=== PATIENT | male | born 1930 | race Caucasian/White ===

== ENCOUNTER 2017-08-20 16:43 | Inpatient (IN) | payer OTHER, MEDICARE ==
--- NOTE | 2017-08-20 18:42 | ER Document Report ---
ED Medical Screen (RME) - General Chief Complaint: Swelling of Lower Extremity Stated Complaint: RECTAL BLEEDING Time Seen by Provider: 08/20/17 18:41 Notes: pt reports generalized weakness, recent dc from rehab and lives alone. states cant do ADL's due to weakness - Related Data Allergies/Adverse Reactions: No Known Allergies Allergy (Unverified 08/20/17 17:35) Past Medical History - Social History Chew tobacco use (# tins/day): No Frequency of alcohol use: None Renal/ Medical History: Denies: Hx Peritoneal Dialysis Physical Exam - Vital signs Vitals: Temp Pulse Resp BP Pulse Ox 97.8 F 85 20 167/73 H 95 08/20/17 17:40 08/20/17 17:40 08/20/17 17:40 08/20/17 17:40 08/20/17 17:40 Course - Vital Signs Vital signs: Temp Pulse Resp BP Pulse Ox 97.8 F 85 20 167/73 H 95 08/20/17 17:40 08/20/17 17:40 08/20/17 17:40 08/20/17 17:40 08/20/17 17:40
[2017-08-20 21:35] LABS: HEMATOCRIT 37.5 % (37.9-51.0); HEMOGLOBIN 12.2 g/dL (13.5-17.0); MEAN CORPUSCULAR HEMOGLOBIN 29.8 pg (27.0-33.4); MEAN CORPUSCULAR HGB CONC 32.7 g/dL (32.0-36.0); MEAN CORPUSCULAR VOLUME 91 fl (80-97); PLATELET COUNT 400 10^3/uL (150-450); RED BLOOD COUNT 4.11 10^6/uL (4.35-5.55); WHITE BLOOD COUNT 20.5 10^3/uL (4.0-10.5)
[2017-08-20 21:53] LABS: ABSOLUTE LYMPHOCYTES# (MANUAL) 1.2 10^3/uL (0.5-4.7); ABSOLUTE MONOCYTES # (MANUAL) 1.8 10^3/uL (0.1-1.4); ABSOLUTE NEUTROPHILS# (MANUAL) 17.4 10^3/uL (1.7-8.2); ALANINE AMINOTRANSFERASE 53 U/L (21-72); ALBUMIN 3.5 g/dL (3.5-5.0); ALKALINE PHOSPHATASE 104 U/L (38-126); ANION GAP 16 (5-19); ASPARTATE AMINO TRANSFERASE 50 U/L (17-59); BASOPHILS % (MANUAL) 0 % (0-2); BILIRUBIN,DIRECT 0.5 mg/dL (0.0-0.4); BILIRUBIN,TOTAL 0.7 mg/dL (0.2-1.3); CALCIUM 9.6 mg/dL (8.4-10.2); CARBON DIOXIDE 22 mmol/L (22-30); CHLORIDE 106 mmol/L (98-107); EOSINOPHILS % (MANUAL) 0 % (0-6); GLUCOSE 88 mg/dL (75-110); LYMPHOCYTES % (MANUAL) 5 % (13-45); MONOCYTES % (MANUAL) 9 % (3-13); SEGMENTED NEUTROPHILS % (MAN) 85 % (42-78); SODIUM 143.9 mmol/L (137-145); TOTAL CELLS COUNTED 100; TOTAL PROTEIN 7.1 g/dL (6.3-8.2)
[2017-08-20 21:55] LABS: HYPOCHROMASIA SLIGHT; PLATELET COMMENT ADEQUATE
[2017-08-20 22:07] LABS: BLOOD UREA NITROGEN 125 mg/dL (7-20)
[2017-08-20 22:10] LABS: POTASSIUM 6.2 mmol/L (3.6-5.0)
--- NOTE | 2017-08-20 23:00 | ER Document Report ---
ED General - General Chief Complaint: Swelling of Lower Extremity Stated Complaint: RECTAL BLEEDING Time Seen by Provider: 08/20/17 18:41 Notes: Patient is an 79-year-old male who says that he was recently discharged from the facility in [place]. He sustained the hospital for well and then was placed in facility. Said he went home and has been unable to get out of bed or do anything. He says he is too weak. He says he has felt unwell has not ate or drink anything. He denies any recent fevers or infections. On exam he does have some excoriation to the testicle and sacral region. Patient says he has had this before but is unsure if it is worsening in comparison to what it was. He denies any pain. He has no other complaints at this time. He denies previous history of kidney failure. - Related Data Allergies/Adverse Reactions: No Known Allergies Allergy (Unverified 08/20/17 17:35) Past Medical History - Social History Smoking Status: Former Smoker Chew tobacco use (# tins/day): No Frequency of alcohol use: None Drug Abuse: None Family History: Reviewed & Not Pertinent Patient has suicidal ideation: No Patient has homicidal ideation: No Renal/ Medical History: Denies: Hx Peritoneal Dialysis Review of Systems - Review of Systems Notes: My Normal Review Basic REVIEW OF SYSTEMS: CONSTITUTIONAL : [place] very weak.. RESPIRATORY: Denies cough, cold, or chest congestion. Denies shortness of breath, difficulty breathing, or wheezing. GASTROINTESTINAL: Denies abdominal pain. Denies nausea, vomiting, or diarrhea. Denies constipation. Last BM: GENITOURINARY: Denies difficulty urinating, painful urination, burning, frequency, or blood in urine. MUSCULOSKELETAL: Denies neck or back pain or joint pain or swelling. SKIN: Denies rash or skin lesions. NEUROLOGICAL: Denies altered mental status or loss of consciousness. Denies headache. Denies weakness or paralysis or loss of use of either side. Denies problems with gait or speech. Denies sensory or motor loss. ALL OTHER SYSTEMS REVIEWED AND NEGATIVE. Physical Exam - Vital signs Vitals: Temp Pulse Resp BP Pulse Ox 97.8 F 85 20 167/73 H 95 08/20/17 17:40 08/20/17 17:40 08/20/17 17:40 08/20/17 17:40 08/20/17 17:40 - Notes Notes: General Appearance: Well nourished, alert, cooperative, no acute distress, no obvious discomfort. Vitals: reviewed, See vital signs table. Head: no swelling or tenderness to the head Eyes: PERRL, EOMI, Conjuctiva clear Mouth: Dry mucous membranes. Throat: No tonsillar inflammation, No airway obstruction, No lymphadenopathy Neck: Supple, no neck tenderness, No thyromegaly Lungs: No wheezing, No rales, No rhonci, No accessory muscle use, good air exchange bilaterally. Heart: Normal rate, Regular rythm, No murmur, no rub Abdomen: Normal BS, soft, No rigidity, No abdominal tenderness, No guarding, no rebound, Rectal: Patient has large amount excoriation to the skin over the entire gluteal and sacral region. Even has some blackening of the skin consistent with necrosis of the skin. Patient has some excoriations going up into the perineum and then onto the scrotal area. Genital: Patient has excoriations going up into the scrotal region with some redness. No surrounding crepitance. No abscess seen. Extremities: strength 5/5 in all extremities, good pulses in all extremities, no swelling or tenderness in the extremities, no edema. Skin: warm, dry, appropriate color, no rash Neuro: speech clear, oriented x 3, normal affect, responds appropriately to questions. Course - Re-evaluation Re-evalutation: 08/20/17 23:40 Patient is a large amount skin breakdown of the sacral area extends into the scrotal area. Patient says the area is not painful. I have ordered a CT scan over the sacral area. I have ordered antibiotics. Patient is acute renal failure. I have ordered some fluids. He also has a leukocytosis. Patient is not diabetic. 08/21/17 01:44 Patient clinically continues to be awake alert denies any pain. Therefore think necrotizing fasciitis is highly unlikely especially with a negative CT scan. I did still call and speak with the surgeon, Dr. Arzate, and discussed with him my concerns that this patient most likely will need debridement due to the amount of skin breakdown and probable secondary superinfection. He is agreeable to seeing the patient. He requests patient be admitted to medicine and will see the patient first in the morning. 08/21/17 02:10 Spoke with the hospitalist, Dr. Goldman, who agrees to come evaluate the patient for admission. Dictation of this chart was performed using voice recognition software; therefore, there may be some unintended grammatical errors. - Vital Signs Vital signs: Temp Pulse Resp BP Pulse Ox 97.8 F 85 20 167/73 H 95 08/20/17 17:40 08/20/17 17:40 08/20/17 17:40 08/20/17 17:40 08/20/17 17:40 - Laboratory Result Diagrams: 08/20/17 21:05 08/21/17 03:45 Laboratory results interpreted by me: 08/20/17 08/20/17 08/21/17 21:05 21:05 00:44 WBC 20.5 H RBC 4.11 L Hgb 12.2 L Hct 37.5 L Seg Neuts % (Manual) 85 H Lymphocytes % (Manual) 5 L Abs Neuts (Manual) 17.4 H Abs Monocytes (Manual) 1.8 H PT 15.6 H Potassium 6.2 H* BUN 125 H Creatinine 7.06 H Est GFR ( Amer) 9 L Est GFR (Non-Af Amer) 7 L Direct Bilirubin 0.5 H Urine Protein Urine Blood Ur Leukocyte Esterase 08/21/17 02:05 WBC RBC Hgb Hct Seg Neuts % (Manual) Lymphocytes % (Manual) Abs Neuts (Manual) Abs Monocytes (Manual) PT Potassium BUN Creatinine Est GFR ( Amer) Est GFR (Non-Af Amer) Direct Bilirubin Urine Protein 30 H Urine Blood MODERATE H Ur Leukocyte Esterase LARGE H - EKG Interpretation by Me Additional EKG results interpreted by me: 08/20/17 23:00 EKG is reviewed and interpreted by me. EKG shows sinus rhythm with rate of [address] segment elevation or depression. No ischemic T-wave inversions. CA interval, QRS duration, QTc intervals are within normal range. No old EKG available for comparison. Discharge - Discharge Clinical Impression: Hyperkalemia Sacral decubitus ulcer Qualifiers: Pressure ulcer stage: unspecified pressure ulcer stage Qualified Code(s): L89.159 - Pressure ulcer of sacral region, unspecified stage Acute renal failure Qualifiers: Acute renal failure type: unspecified Qualified Code(s): N17.9 - Acute kidney failure, unspecified UTI (urinary tract infection) Qualifiers: Urinary tract infection type: site unspecified Hematuria presence: with hematuria Qualified Code(s): N39.0 - Urinary tract infection, site not specified Condition: Stable Disposition: ADMITTED INPATIENT Admitting Provider: Hospitalist Unit Admitted: Telemetry
[2017-08-20] MEDS ORDERED: PIPERACILLIN/TAZOBACTAM 3.375 GM VIAL IV ONE (23:07)
[2017-08-20] MEDS ORDERED: RINGERS SOLUTION,LACTATED 1,000 ML IV ONE (23:08)
[2017-08-20] MEDS ORDERED: DEXTROSE 5%-WATER 1000 ML 1,000 ML with SODIUM BICARBONATE 150 MEQ IV PRN ×2 (23:09)
[2017-08-20] MEDS ORDERED: VANCOMYCIN HCL INJ 1000 MG VIAL IV ONE (23:37)
--- NOTE | 2017-08-21 00:08 | RADIOLOGY REPORT (SQ) ---
EXAM DESCRIPTION: CHEST SINGLE VIEW CLINICAL HISTORY: 87 years, Male, leukocytosis, weakness COMPARISON: None. NUMBER OF VIEWS: 1 LIMITATIONS: None. FINDINGS: Adequate lung volume, prominent interstitium, normal cardiac silhouette, atherosclerosis, dextroconvexity, and mild disc desiccation. IMPRESSION: No acute cardiopulmonary findings.
--- NOTE | 2017-08-21 00:57 | RADIOLOGY REPORT (SQ) ---
EXAM DESCRIPTION: CT ABD/PELVIS NO ORAL OR IV CLINICAL HISTORY: 87 years Male, severe skin break down over sacral region. COMPARISON: CR, chest, same day. TECHNIQUE: No contrast. Coronal and sagittal reformat. This exam was performed according to our departmental dose-optimization program, which includes automated exposure control, adjustment of the mA and/or kV according to patient size and/or use of iterative reconstruction technique. FINDINGS: Moderate dilation of the renal collecting system bilaterally. No radiopaque stone. Mild/moderate dilation of the urinary bladder. Mild bilateral perinephric fat stranding. No ascites. 0.8 cm calcified granuloma within left lower lobe. Small atelectasis or scar of the left lower lobe. Small right inguinal fat only hernia. Old granulomatous disease of the spleen. Mild nonspecific macro nodularity of liver surface may indicate cirrhosis. Mild/moderate disc desiccation. Unenhanced inferior chest, intra-abdominal/intrapelvic structures, and musculoskeleton appear otherwise grossly intact. IMPRESSION: Moderate dilation of the renal collecting system. Differential diagnosis includes bladder outlet obstruction/dysfunction.
[2017-08-21 01:04] LABS: INTERNATIONAL RATION (INR) 1.16; PROTHROMBIN TIME 15.6 SEC (11.4-15.4)
[2017-08-21 01:05] LABS: PARTIAL THROMBOPLASTIN TIME 31.7 SEC (23.5-35.8)
[2017-08-21] MEDS ORDERED: DEXTROSE 50%-WATER 25 GM/50 ML DISP.SYRIN IV ONE (02:15)
[2017-08-21] MEDS ORDERED: INSULIN REG, HUMAN 100 UNIT/ML 3 ML VIAL (PYX) IV ONE (02:16)
[2017-08-21 02:49] LABS: APPEARANCE,URINE CLOUDY; BILIRUBIN,URINE NEGATIVE (NEGATIVE); COLOR,URINE YELLOW; GLUCOSE, URINE NEGATIVE (NEGATIVE); KETONES,URINE NEGATIVE (NEGATIVE); LEUKOCYTE ESTERASE,URINE LARGE (NEGATIVE); NITRITE,URINE NEGATIVE (NEGATIVE); PROTEIN,URINE 30 mg/dL (NEGATIVE); URINE SPECIFIC GRAVITY 1.006; UROBILINOGEN,URINE NEGATIVE mg/dL (<2.0)
[2017-08-21 04:05] LABS: ANION GAP 17 (5-19); CALCIUM 8.9 mg/dL (8.4-10.2); CARBON DIOXIDE 19 mmol/L (22-30); CHLORIDE 110 mmol/L (98-107); GLUCOSE 132 mg/dL (75-110); POTASSIUM 5.3 mmol/L (3.6-5.0); SODIUM 145.6 mmol/L (137-145)
[2017-08-21] MEDS ORDERED: DEXTROSE 50%-WATER 25 GM/50 ML DISP.SYRIN IV PRN ×2 (04:25)
[2017-08-21] MEDS ORDERED: NORMAL SALINE 1000 ML 1,000 ML IV PRN (04:25)
[2017-08-21] MEDS ORDERED: ONDANSETRON HCL INJ/PF 4 MG/2 ML SDV IV PRN (04:25)
[2017-08-21] MEDS ORDERED: ACETAMINOPHEN 325 MG TABLET PO PRN (04:25)
[2017-08-21] MEDS ORDERED: GLUCAGON,HUMAN RECOMB 1 MG INJ SUBCUT PRN (04:25)
[2017-08-21] MEDS ORDERED: ALBUTEROL SULFATE 0.083% NEB 2.5 MG/3 ML AMPUL NEB PRN (04:25)
[2017-08-21] MEDS ORDERED: DEXTROSE 40% GEL 15 GM TUBE PO PRN ×2 (04:25)
[2017-08-21 04:31] LABS: BLOOD UREA NITROGEN 137 mg/dL (7-20)
[2017-08-21] MEDS ORDERED: CALCIUM GLUCONATE 1000 MG/10 ML INJ IV ONE (04:36)
[2017-08-21] MEDS ORDERED: 1/2 NORMAL SALINE 1,000 ML IV PRN ×2 (05:02→15:27)
[2017-08-21 05:29] LABS: FREE T4 (FREE THYROXINE) 1.53 ng/dL (0.78-2.19)
[2017-08-21 05:43] LABS: THYROID STIMULATING HORMONE 1.23 uIU/mL (0.47-4.68)
[2017-08-21 06:19] LABS: FOLATE 12.4 ng/mL (>2.76)
--- NOTE | 2017-08-21 07:30 | PDOC H&P ---
History of Present Illness Admission Date/PCP: 08/21/17 02:24 Patient complains of: Weakness History of Present Illness: NORMA PUENTE is a 87 year old male who states he has no medical history however upon reviewing his medications appears to have hypertension, hyperlipidemia, BPH, anxiety and pain. Patient states he went to [facility] be evaluated for weakness and was transferred to [facility] for further evaluation. Patient was there for 2 months. Patient states that after he was evaluated in the hospital he was sent for rehab but states that he spent most of his time in a wheelchair. Patient states that he was living independently. Patient denies using a walker or cane previously. Patient was discharged home. He stated while home he was unable to care for himself. Patient has not eaten or taken any medications medications for 4 days. Patient states he has not really urinated because he was not drinking anything order to urinate. Reports that his feet often times jerked towards him without him even knowing. In the ED patient was found to have leukocytosis of 20,000, hemoglobin 12.2 patient potassium was 6.2 BUN was 125 and his creatinine was 7.06. CT scan of the abdomen showed moderate dilatation of the renal collecting system bilaterally. In the ED was also noted that his scrotal and groin and decubitus area were ulcerated and appeared infected. Hospitalist was called to admit patient for acute renal failure due to obstructive uropathy, hyperkalemia, and decubitus ulcer infection. Past Medical History Cardiac Medical History: Reports: Hyperlipidema, Hypertension Denies: None, Atrial Fibrillation, Congestive Heart Failure, Coronary Artery Disease, DVT, Myocardial Infarction, Peripheral Vascular Disease, Pulmonary Embolism, Heart Murmur, Other Endocrine Medical History: Denies: None, Diabetes Mellitus Type 1, Diabetes Mellitus Type 2, Gestational Diabetes, Hyperthyroidism, Hypothyroidism, Obesity, Other Renal/ Medical History: Reports: Other - BPH Malignancy Medical History: Denies: None, Bone Cancer, Brain Cancer, Breast Cancer, Cervical Cancer, Colorectal Cancer, Leukemia, Liver Cancer, Lung Cancer, Lymphoma, Ovarian Cancer , Pancreatic Cancer, Renal (Kidney) Cancer, Skin Cancer, Other GI Medical History: Denies: None, Cirrhosis, Crohn's Disease, Diverticulitis, Gastroesophageal Reflux Disease, Hepatitis, Hiatal Hernia, Peptic Ulcer Disease, Ulcerative Colitis, Other Musculoskeltal Medical History: Reports: Arthritis Skin Medical History: Denies: None, Eczema, Psoriasis, Other Psychiatric Medical History: Denies: None, Alcohol Dependency, Attention Deficit Hyperactivity Disorder, Bipolar Disorder, Dementia, Depression, General Anxiety Disorder, Personality Disorder, Post Traumatic Stress Disorder, Schizoaffective Disorder, Substance Abuse, Tobacco Dependency, Other Hematology: Reports: Anemia Infectious Medical History: Denies: None, Clostridium Difficile, Hepatitis B, Hepatitis C, HIV, Methicillin-Resistant Staph Aureus, Vancomycin-Resistant Enterococci, Other Past Surgical History Past Surgical History: Reports: Appendectomy Social History Information Source: Patient Smoking Status: Former Smoker - Advance Directive Resuscitation Status: Full Code Family History Family History: denies: None, Reviewed & Not Pertinent, Arthritis, CAD, COPD, CVA, DM, Hyperlipidemia, Hypertension, Malignancy, Thyroid Disfunction, Other Parental Family History Reviewed: No Children Family History Reviewed: No Sibling(s) Family History Reviewed.: No Medication/Allergy Allergies/Adverse Reactions: No Known Allergies Allergy (Unverified 08/20/17 17:35) Review of Systems Constitutional: ABSENT: chills, fever(s), headache(s), weight gain, weight loss Eyes: ABSENT: visual disturbances Ears: ABSENT: hearing changes Cardiovascular: ABSENT: chest pain, dyspnea on exertion, edema, orthropnea, palpitations Respiratory: ABSENT: cough, hemoptysis Gastrointestinal: ABSENT: abdominal pain, constipation, diarrhea, hematemesis, hematochezia, nausea, vomiting Genitourinary: ABSENT: dysuria, hematuria Musculoskeletal: ABSENT: joint swelling Integumentary: ABSENT: rash, wounds Neurological: PRESENT: weakness. ABSENT: abnormal gait, abnormal speech, confusion, dizziness, focal weakness, syncope Psychiatric: ABSENT: anxiety, depression, homidical ideation, suicidal ideation Endocrine: ABSENT: cold intolerance, heat intolerance, polydipsia, polyuria Hematologic/Lymphatic: ABSENT: easy bleeding, easy bruising Physical Exam Vital Signs: Temp Pulse Resp BP Pulse Ox 97.8 F 85 20 167/73 H 95 08/20/17 17:40 08/20/17 17:40 08/20/17 17:40 08/20/17 17:40 08/20/17 17:40 General appearance: PRESENT: no acute distress, disheveled, well-nourished Head exam: PRESENT: normocephalic Eye exam: PRESENT: conjunctiva pink, EOMI, PERRLA. ABSENT: scleral icterus Ear exam: PRESENT: normal external ear exam Mouth exam: PRESENT: moist, tongue midline Neck exam: ABSENT: carotid bruit, JVD, lymphadenopathy, thyromegaly Respiratory exam: PRESENT: clear to auscultation arash. ABSENT: rales, rhonchi, wheezes Cardiovascular exam: PRESENT: RRR. ABSENT: diastolic murmur, rubs, systolic murmur Pulses: PRESENT: normal dorsalis pedis pul Vascular exam: PRESENT: normal capillary refill GI/Abdominal exam: PRESENT: normal bowel sounds, soft. ABSENT: distended, guarding, mass, organolmegaly, rebound, tenderness Rectal exam: PRESENT: deferred Gentrourinary exam: PRESENT: indwelling catheter Extremities exam: PRESENT: full ROM. ABSENT: calf tenderness, clubbing, pedal edema Neurological exam: PRESENT: alert, awake, oriented to person, oriented to place , oriented to time, oriented to situation, CN II-XII grossly intact. ABSENT: motor sensory deficit Psychiatric exam: PRESENT: appropriate affect, normal mood. ABSENT: homicidal ideation, suicidal ideation Skin exam: PRESENT: dry, intact, warm. ABSENT: cyanosis, rash Results Laboratory Results: 08/21/17 03:45 08/21/17 08/21/17 08/21/17 03:45 03:45 03:45 Sodium 145.6 H Potassium 5.3 H Chloride 110 H Carbon Dioxide 19 L Anion Gap 17 BUN 137 H Creatinine 6.73 H Est GFR ( Amer) 9 L Est GFR (Non-Af Amer) 8 L Glucose 132 H Calcium 8.9 Magnesium 2.3 Vitamin B12 297.0 Folate 12.40 TSH 1.23 Free T4 1.53 Impressions: Chest X-Ray 08/20/17 23:09 IMPRESSION: No acute cardiopulmonary findings. Abdomen/Pelvis CT 08/20/17 23:35 IMPRESSION: Moderate dilation of the renal collecting system. Differential diagnosis includes bladder outlet obstruction/dysfunction. Assessment & Plan - Diagnosis (1) Acute renal failure Qualifiers: Acute renal failure type: unspecified Qualified Code(s): N17.9 - Acute kidney failure, unspecified Is this a current diagnosis for this admission?: Yes Plan: Secondary to obstructive uropathy Clement placed and dehydration. Repeat labs show creatinine trending down. Continue IV fluids. Clement catheter in place. Monitor ins and outs. Avoid nephrotoxins. Renal ultrasound ordered. Will consult nephrology. (2) Obstructive uropathy Is this a current diagnosis for this admission?: Yes Plan: CT scan of the abdomen shows moderate dilatation of the renal collecting system. Patient had a Clement placed. Require repeat imaging to see if it has corrected. (3) Hyperkalemia Is this a current diagnosis for this admission?: Yes Plan: Secondary to acute renal failure. Will give calcium gluconate. Patient given insulin and dextrose. Will also given neb treatment. Will repeat BMP. (4) Sacral decubitus ulcer Qualifiers: Pressure ulcer stage: unspecified pressure ulcer stage Qualified Code(s): L89.159 - Pressure ulcer of sacral region, unspecified stage Is this a current diagnosis for this admission?: Yes Plan: Patient given vancomycin and Zosyn. Will start patient on clindamycin. Surgery was consulted for evaluation of this decubitus ulcer for possible debridement. (5) Weakness Is this a current diagnosis for this admission?: Yes Plan: Patient states he was at [facility] for 2 months for this very reason. Patient even reports clonus. Will order a CT of the head and neck. Will request patient's documents from [place]. Will check B12, TSH, folate , vitamin D, CRP, sed rate, CPK. He will keep in mind that patient's weakness could be due to infected decubitus ulcer. Will consult PT and OT (6) UTI (urinary tract infection) Qualifiers: Urinary tract infection type: site unspecified Hematuria presence: with hematuria Qualified Code(s): N39.0 - Urinary tract infection, site not specified; R31.9 - Hematuria, unspecified; R31.9 - Hematuria, unspecified Plan: Patient currently on ceftriaxone. - Time Time Spent: 30 to 50 Minutes Anticipated discharge: SNF - Inpatient Certification Medical Necessity: Need For IV Fluids - Currently in acute renal failure and requires close monitoring. She may require possible surgery.
[2017-08-21] MEDS: CLINDAMYCIN 900 MG/D5W RTU 50 ML IV SCH ×3 (07:50→22:50)
--- NOTE | 2017-08-21 08:14 | RADIOLOGY REPORT (SQ) ---
EXAM DESCRIPTION: CT CERVICAL SPINE WITHOUT COMPLETED DATE/TIME: 08/21/2017 7:56 am REASON FOR STUDY: unable to walk or use hands COMPARISON: None. TECHNIQUE: Axial images acquired through the cervical spine without intravenous contrast. Images re viewed with lung, soft tissue and bone windows. Reconstructed coronal and sagittal MPR images review ed. Images stored on PACS. All CT scanners at this facility use dose modulation, iterative reconstruction, and/or weight based d osing when appropriate to reduce radiation dose to as low as reasonably achievable (ALARA). [facility]: Dose Right [facility]: CareDose [facility]: Dose Right [facility]: Teradose 4D [facility]: Smart [employer] RADIATION DOSE: CT Rad equipment meets quality standard of care and radiation dose reduction techniq ues were employed. CTDIvol: 26.0 mGy. DLP: 546 mGy-cm. mGy. LIMITATIONS: None. FINDINGS: ALIGNMENT: Anatomic. MINERALIZATION: Normal. VERTEBRAL BODIES: No fractures or dislocation. DISCS: Multilevel disc space narrowing with osteophytes. FACETS, LATERAL MASSES, POSTERIOR ELEMENTS: Facet arthropathy. No fractures. No dislocation. No ac sandhya findings. HARDWARE: None in the spine. VISUALIZED RIBS: No fractures. LUNG APICES AND SOFT TISSUES: No significant or acute findings. OTHER: No other significant finding. IMPRESSION: CHRONIC DEGENERATIVE CHANGES. NO ACUTE FINDINGS. TECHNICAL DOCUMENTATION: JOB ID: [id number] Quality ID # [id number]: Final reports with documentation of one or more dose reduction techniques (e.g., Au tomated exposure control, adjustment of the mA and/or kV according to patient size, use of iterative reconstruction technique) 2010 [employer] All Rights Reserved
--- NOTE | 2017-08-21 08:16 | RADIOLOGY REPORT (SQ) ---
EXAM DESCRIPTION: CT HEAD WITHOUT COMPLETED DATE/TIME: 08/21/2017 7:56 am REASON FOR STUDY: unable to walk or use hands COMPARISON: None. TECHNIQUE: Axial images acquired through the brain without intravenous contrast. Images reviewed wi th bone, brain and subdural windows. Images stored on PACS. All CT scanners at this facility use dose modulation, iterative reconstruction, and/or weight based d osing when appropriate to reduce radiation dose to as low as reasonably achievable (ALARA). [facility]: Dose Right [facility]: CareDose [facility]: Dose Right [facility]: Teradose 4D [facility]: Smart [employer] RADIATION DOSE: CT Rad equipment meets quality standard of care and radiation dose reduction techniq ues were employed. CTDIvol: 64.3 mGy. DLP: 1163 mGy-cm. mGy. LIMITATIONS: None. FINDINGS: VENTRICLES: Prominent. CEREBRUM: No masses. No hemorrhage. No midline shift. Areas of low density in the white matter mos t likely due to chronic micro-vascular ischemic change. No evidence for acute infarction. CEREBELLUM: No masses. No hemorrhage. No alteration of density. No evidence for acute infarction. EXTRAAXIAL SPACES: Mild age-related involutional change. No fluid collections. No masses. ORBITS AND GLOBE: No intra- or extraconal masses. Normal contour of globe without masses. CALVARIUM: No fracture. PARANASAL SINUSES: No fluid or mucosal thickening. SOFT TISSUES: No mass or hematoma. OTHER: No other significant finding. IMPRESSION: MILD CHRONIC CHANGES OF ATROPHY AND MICROVASCULAR ISCHEMIA. NO ACUTE PROCESS. EVIDENCE OF ACUTE STROKE: NO. TECHNICAL DOCUMENTATION: JOB ID: [id number] Quality ID # [id number]: Final reports with documentation of one or more dose reduction techniques (e.g., Au tomated exposure control, adjustment of the mA and/or kV according to patient size, use of iterative reconstruction technique) 2010 [email or web address]- All Rights Reserved
[2017-08-21] MEDS: ASCORBIC ACID 500 MG TABLET PO SCH (09:12)
[2017-08-21] MEDS: LACTOBACILLUS ACIDOPHILUS 250 MG TAB PO SCH ×2 (09:13→19:54)
[2017-08-21] MEDS: CYANOCOBALAMIN (VITAMIN B-12) INJ 1000 MCG/1 ML VIAL IM SCH (09:14)
--- NOTE | 2017-08-21 09:26 | EKG REPORT ---
SEVERITY:- ABNORMAL ECG - SINUS RHYTHM ABNRM R PROG, CONSIDER ASMI OR LEAD PLACEMENT : Confirmed by: Maki Olivier 21-Aug-2017 09:26:26
[2017-08-21] MEDS: DOCUSATE SODIUM 100 MG/10 ML UDC PO SCH ×2 (09:30→19:54)
[2017-08-21] MEDS ORDERED: CEFTRIAXONE 1 GM/D5W RTU 1 GM/50 ML RTUPB IV SCH (10:00)
--- NOTE | 2017-08-21 10:11 | RADIOLOGY REPORT (SQ) ---
EXAM DESCRIPTION: U/S RETROPERITON (RENAL/AORTA) COMPLETED DATE/TIME: 08/21/2017 9:19 am REASON FOR STUDY: renal failure COMPARISON: CT dated 08/21/2017. TECHNIQUE: Dynamic and static grayscale images acquired of the kidneys and bladder and recorded on P ACS. Additional selected color Doppler and spectral images recorded. LIMITATIONS: None. FINDINGS: RIGHT KIDNEY: Normal size. Normal echogenicity. No solid or suspicious masses. Minimal ca lyceal prominence. No hydronephrosis. No calcifications. LEFT KIDNEY: Normal size. Normal echogenicity. No solid or suspicious masses. No hydronephrosis. No calcifications. BLADDER: Nondistended. Catheter in place. OTHER FINDINGS: No other significant finding. IMPRESSION: UNREMARKABLE RENAL AND BLADDER ULTRASOUND. HYDRONEPHROSIS SEEN ON RECENT CT HAS IMPROVE D. THIS PROBABLY WAS DUE TO DISTENDED BLADDER WHICH HAS RESOLVED WITH PLACEMENT OF YEPEZ CATHETER. TECHNICAL DOCUMENTATION: JOB ID: [id number] 2201 [employer]- All Rights Reserved
[2017-08-21] MEDS: CEFTRIAXONE SODIUM 1,000 MG in DEXTROSE 5%-WATER 100 ML IV SCH (10:18)
[2017-08-21] MEDS: LANSOPRAZOLE 15 MG TAB.RAP.DR PO SCH (10:19)
[2017-08-21 10:50] LABS: ABSOLUTE BASOPHILS # (AUTO) 0.1 10^3/uL (0.0-0.2); ABSOLUTE LYMPHOCYTES (AUTO) 2.2 10^3/uL (0.5-4.7); ABSOLUTE MONOCYTES (AUTO) 1.8 10^3/uL (0.1-1.4); ABSOLUTE NEUT (AUTO) 12.6 10^3/uL (1.7-8.2); BASOPHILS % (AUTO) 0.3 % (0-2); EOSINOPHILS % (AUTO) 0.2 % (0-6); HEMATOCRIT 33.4 % (37.9-51.0); LYMPHOCYTES % (AUTO) 13.2 % (13-45); MEAN CORPUSCULAR HEMOGLOBIN 29.7 pg (27.0-33.4); MEAN CORPUSCULAR HGB CONC 32.8 g/dL (32.0-36.0); MEAN CORPUSCULAR VOLUME 91 fl (80-97); MONOCYTES % (AUTO) 10.9 % (3-13); PLATELET COUNT 361 10^3/uL (150-450); RED BLOOD COUNT 3.69 10^6/uL (4.35-5.55); RED CELL DISTRIBUTION WIDTH 14.2 % (11.5-14.0); SEGMENTED NEUTROPHILS % (AUTO) 75.4 % (42-78); TOTAL CELLS COUNTED % (AUTO) 100 %; WHITE BLOOD COUNT 16.7 10^3/uL (4.0-10.5)
[2017-08-21 11:16] LABS: ANION GAP 16 (5-19); CALCIUM 9.4 mg/dL (8.4-10.2); CARBON DIOXIDE 21 mmol/L (22-30); CHLORIDE 110 mmol/L (98-107); GLUCOSE 118 mg/dL (75-110); POTASSIUM 5.2 mmol/L (3.6-5.0); SODIUM 147.1 mmol/L (137-145)
[2017-08-21 11:28] LABS: BLOOD UREA NITROGEN 126 mg/dL (7-20); C-REACTIVE PROTEIN 224.2 mg/L (<10.0)
--- NOTE | 2017-08-21 15:29 | PDOC CONSULTATION ---
Consultation Consult Date: 08/21/17 Consult reason:: Acute renal failure History of Present Illness Admission Date/PCP: 08/21/17 02:24 History of Present Illness: NORMA PUENTE is a 87 year old male who states he has medical history, however upon the hospitalist reviewing his medications, he appears to have hypertension, hyperlipidemia, BPH, anxiety and pain. Patient states he went to [place] two months ago to be evaluated for weakness and was transferred to [place] for further evaluation. Patient was there for 2 months. Patient states that after he was evaluated in the hospital he was sent for rehab but states that he spent most of his time in a wheelchair. Patient states that he has been living independently but unable to take care of himself. Patient denies using a walker or cane previously. He has not eaten or taken any medications medications for 4 days. Patient has not been urinating either. Reports that his feet and knees often times jerked towards him without him even knowing. He was found by CPS and brought to the ER. Labs were drawn in the ED patient was found to have leukocytosis of 20,000, hemoglobin 12.2, potassium 6.2, BUN 125 and his creatinine was 7.06. CT scan of the abdomen showed moderate dilatation of the renal collecting system bilaterally. In the ED also found that his scrotal and groin and decubitus area were ulcerated and appeared infected. He had a moctezuma put in him, with which he has been producing about 900mL an hour according to the nurse in charge of his care. A renal ultra sound was also done and showed no abnormalities. At the time of examination the patient denies chest pain, SOB, heart palpitations, abdominal pain. He also denies a cardiac, kidney or liver history. All history was confirmed with the patient. Past Medical History Cardiac Medical History: Reports: Hyperlipidemia Denies: None, Atrial Fibrillation, Coronary Artery Disease, DVT, Heart Murmur , Myocardial Infarction, Peripheral Vascular Disease, Pulmonary Embolism, Other Endocrine Medical History: Denies: None, Diabetes Mellitus Type 1, Diabetes Mellitus Type 2, Hyperthyroidism, Hypothyroidism, Obesity, Other Complications of Diabetes: Denies: Other Renal/ Medical History: Reports: Benign Prostatic Hyperplasia Malignancy Medical History: Denies: None, Bone Cancer, Brain Cancer, Breast Cancer, Cervical Cancer, Colorectal Cancer, Leukemia, Liver Cancer, Lung Cancer, Lymphoma, Ovarian Cancer , Pancreatic Cancer, Renal (Kidney) Cancer, Skin Cancer, Other GI Medical History: Denies: None, Cirrhosis, Crohn's Disease, Diverticulitis, Gastroesophageal Reflux Disease, Hepatitis, Hiatal Hernia, Peptic Ulcer Disease, Ulcerative Colitis, Other Musculoskeltal Medical History: Reports: Arthritis Skin Medical History: Denies: None, Eczema, Psoriasis, Other Psychiatric Medical History: Denies: None, Alcohol Dependency, Attention Deficit Hyperactivity Disorder, Bipolar Disorder, Dementia, Depression, General Anxiety Disorder, Personality Disorder, Post Traumatic Stress Disorder, Schizoaffective Disorder, Substance Abuse, Tobacco Dependency, Other Infectious Medical History: Denies: None, Clostridium Difficile, Hepatitis B, Hepatitis C, HIV, Methicillin-resist Staph Aureus, Vancomycin-resistant Enterococci, Other Past Surgical History Past Surgical History: Reports: Appendectomy Social History Smoking Status: Former Smoker - Advance Directive Resuscitation Status: Full Code Family History Parental Family History Reviewed: No Children Family History Reviewed: NA Sibling(s) Family History Reviewed.: NA Medication/Allergy Home Medications: Aspirin [Ecotrin 81 mg EC Tablet] 81 mg PO DAILY 08/21/17 Atorvastatin Calcium [Lipitor 40 mg Tablet] 40 mg PO QHS 08/21/17 Cholecalciferol (Vitamin D3) [Vitamin D3] 1,000 unit PO DAILY 08/21/17 Docusate Calcium [Stool Softener] 240 mg PO DAILY 08/21/17 Finasteride [Proscar 5 mg Tablet] 5 mg PO DAILY 08/21/17 Furosemide [Lasix 20 mg Tablet] 20 mg PO DAILY 08/21/17 Hydrocodone/Acetaminophen [Hydrocodone-Acetamin 5-325 mg] 1 tab PO Q12HP PRN Lisinopril [Prinivil 40 mg Tablet] 40 mg PO DAILY 08/21/17 Melatonin [Melatonin 3 mg Tablet] 3 mg PO QHS 08/21/17 Multivitamin [Tab-A-Allen (Multiple Vitamin) Tablet] 1 tab PO DAILY 08/21/17 Nifedipine [Nifedipine ER] 60 mg PO DAILY 08/21/17 Tamsulosin HCl [Flomax 0.4 mg Cap.sr] 0.4 mg PO DAILY 08/21/17 Temazepam [Restoril 15 mg Capsule] 15 mg PO QHS 08/21/17 Tolterodine Tartrate [Tolterodine Tartrate ER] 4 mg PO DAILY 08/21/17 Tramadol HCl [Ultram 50 mg Tablet] 50 mg PO Q6HP PRN 08/21/17 Allergies/Adverse Reactions: No Known Allergies Allergy (Unverified 08/20/17 17:35) Review of Systems Constitutional: PRESENT: fatigue, weakness. ABSENT: anorexia, chills, fever(s) , headache(s) Eyes: ABSENT: visual disturbances Cardiovascular: ABSENT: chest pain, dyspnea on exertion, edema, orthropnea, palpitations Respiratory: ABSENT: cough, dyspnea, sputum Gastrointestinal: ABSENT: constipation, diarrhea, nausea, vomiting Genitourinary: PRESENT: difficulty urinating. ABSENT: dysuria Musculoskeletal: PRESENT: muscle weakness. ABSENT: joint swelling Neurological: PRESENT: weakness. ABSENT: dizziness, focal weakness, numbness, tingling Hematologic/Lymphatic: ABSENT: easy bleeding, easy bruising Physical Exam Vital Signs: Temp Pulse Resp BP Pulse Ox 97.7 F 85 19 133/64 H 96 08/21/17 08:21 08/20/17 17:40 08/21/17 13:33 08/21/17 13:33 08/21/17 13:33 Intake & Output 08/20/17 08/21/17 08/22/17 06:59 06:59 06:59 Output Total 3800 Balance -3800 Weight 127.006 kg General appearance: PRESENT: no acute distress, well-developed, well-nourished Eye exam: PRESENT: PERRLA. ABSENT: scleral icterus Mouth exam: PRESENT: moist, neck supple Neck exam: PRESENT: full ROM. ABSENT: JVD Respiratory exam: PRESENT: crackles, rhonchi. ABSENT: accessory muscle use, clear to auscultation arash, wheezes Cardiovascular exam: PRESENT: RRR, +S1, +S2 GI/Abdominal exam: PRESENT: distended, soft. ABSENT: firm, rebound, rigid, tenderness Musculoskeletal exam: PRESENT: normal inspection. ABSENT: tenderness Neurological exam: PRESENT: alert, awake, oriented to person, oriented to place , oriented to time, oriented to situation Psychiatric exam: PRESENT: appropriate affect, normal mood Skin exam: PRESENT: dry, erythema, rash, skin tears, warm. ABSENT: cyanosis, intact, jaundice Results Laboratory Results: 08/21/17 10:27 08/21/17 10:27 08/21/17 08/21/17 08/21/17 03:45 03:45 03:45 WBC RBC Hgb Hct MCV MCH MCHC RDW Plt Count Seg Neutrophils % Lymphocytes % Monocytes % Eosinophils % Basophils % Absolute Neutrophils Absolute Lymphocytes Absolute Monocytes Absolute Eosinophils Absolute Basophils Sodium 145.6 H Potassium 5.3 H Chloride 110 H Carbon Dioxide 19 L Anion Gap 17 BUN 137 H Creatinine 6.73 H Est GFR ( Amer) 9 L Est GFR (Non-Af Amer) 8 L Glucose 132 H Calcium 8.9 Magnesium 2.3 C-Reactive Protein Vitamin B12 297.0 Folate 12.40 TSH 1.23 Free T4 1.53 08/21/17 08/21/17 10:27 10:27 WBC 16.7 H RBC 3.69 L Hgb 11.0 L Hct 33.4 L MCV 91 MCH 29.7 MCHC 32.8 RDW 14.2 H Plt Count 361 Seg Neutrophils % 75.4 Lymphocytes % 13.2 Monocytes % 10.9 Eosinophils % 0.2 Basophils % 0.3 Absolute Neutrophils 12.6 H Absolute Lymphocytes 2.2 Absolute Monocytes 1.8 H Absolute Eosinophils 0.0 Absolute Basophils 0.1 Sodium 147.1 H Potassium 5.2 H Chloride 110 H Carbon Dioxide 21 L Anion Gap 16 BUN 126 H Creatinine 6.58 H Est GFR ( Amer) 10 L Est GFR (Non-Af Amer) 8 L Glucose 118 H Calcium 9.4 Magnesium C-Reactive Protein 224.2 H Vitamin B12 Folate TSH Free T4 08/21/17 03:45 Creatine Kinase 586 H Impressions: Chest X-Ray 08/20/17 23:09 IMPRESSION: No acute cardiopulmonary findings. Abdomen/Pelvis CT 08/20/17 23:35 IMPRESSION: Moderate dilation of the renal collecting system. Differential diagnosis includes bladder outlet obstruction/dysfunction. Cervical Spine CT 08/21/17 00:00 IMPRESSION: CHRONIC DEGENERATIVE CHANGES. NO ACUTE FINDINGS. Head CT 08/21/17 00:00 IMPRESSION: MILD CHRONIC CHANGES OF ATROPHY AND MICROVASCULAR ISCHEMIA. NO ACUTE PROCESS. EVIDENCE OF ACUTE STROKE: NO. Renal Ultrasound 08/21/17 00:00 IMPRESSION: UNREMARKABLE RENAL AND BLADDER ULTRASOUND. HYDRONEPHROSIS SEEN ON RECENT CT HAS IMPROVED. THIS PROBABLY WAS DUE TO DISTENDED BLADDER WHICH HAS RESOLVED WITH PLACEMENT OF MOCTEZUMA CATHETER. Assessment & Plan - Diagnosis (1) Acute renal failure Qualifiers: Acute renal failure type: unspecified Qualified Code(s): N17.9 - Acute kidney failure, unspecified Is this a current diagnosis for this admission?: Yes Plan: no baseline creatinine, patient unfortunately is a poor historian. Unsure if previous underlining kidney disease. EMERALD related to BPH causing an obstruction. Also other insults from small elevation in CPK with underlining current infection. He is producing urine at a rate of 900mL an hour according to the nurse in charge of his care. Need to increase the 1/2 NS to a rate of 200mL an hour to keep up with urine output. Due to obstruction he is hitting a severe diuresis phase which requires fluid to prevent dehydration and hypotension. No current indication for renal replacement therapy. (2) Obstructive uropathy Is this a current diagnosis for this admission?: Yes Plan: most likely leading cause of kidney disease, recommend keeping moctezuma catheter in and keeping strict charting of urine output. (3) Hyperkalemia Is this a current diagnosis for this admission?: Yes Plan: avoid LR for fluid replacement. With diuresis he could become hypokalemic, need to monitor. (4) Sacral decubitus ulcer Qualifiers: Pressure ulcer stage: unspecified pressure ulcer stage Qualified Code(s): L89.159 - Pressure ulcer of sacral region, unspecified stage Is this a current diagnosis for this admission?: Yes Plan: currently being treated with clindamycin and ceftriaxone (5) UTI (urinary tract infection) Qualifiers: Urinary tract infection type: site unspecified Hematuria presence: with hematuria Qualified Code(s): N39.0 - Urinary tract infection, site not specified; R31.9 - Hematuria, unspecified; R31.9 - Hematuria, unspecified Is this a current diagnosis for this admission?: Yes Plan: currently being treated with clindamycin and ceftriaxone (6) Weakness Is this a current diagnosis for this admission?: Yes - Notes Notes: case and care plan was discussed with Dr. Larry
--- NOTE | 2017-08-21 21:18 | PDOC CONSULTATION ---
Consultation Consult Date: 08/21/17 Attending physician:: Bert Arzate Consult reason:: infected sacral decubitus ulcer History of Present Illness Admission Date/PCP: 08/21/17 02:24 History of Present Illness: This is an 87 yo M admitted to the hospitalist with weakness and an infected sacral decubitus ulcer with leucocytosis of 20,000. He had been seen at [place] for weakness and was transferred to [place] for further evaluation where was for 2 months and was discharged to a rehab facility. He spent most of his time at the rehab in a wheelchair. He was living independently prior to going to the hospital and was not using a walker or cane. When he was discharged home he was unable to care for himself. Past Medical History Cardiac Medical History: Reports: Hyperlipidema, Hypertension Denies: None, Atrial Fibrillation, Congestive Heart Failure, Coronary Artery Disease, DVT, Myocardial Infarction, Peripheral Vascular Disease, Pulmonary Embolism, Heart Murmur, Other Endocrine Medical History: Denies: None, Diabetes Mellitus Type 1, Diabetes Mellitus Type 2, Gestational Diabetes, Hyperthyroidism, Hypothyroidism, Obesity, Other Renal/ Medical History: Reports: Other - BPH Malignancy Medical History: Denies: None, Bone Cancer, Brain Cancer, Breast Cancer, Cervical Cancer, Colorectal Cancer, Leukemia, Liver Cancer, Lung Cancer, Lymphoma, Ovarian Cancer , Pancreatic Cancer, Renal (Kidney) Cancer, Skin Cancer, Other GI Medical History: Denies: None, Cirrhosis, Crohn's Disease, Diverticulitis, Gastroesophageal Reflux Disease, Hepatitis, Hiatal Hernia, Peptic Ulcer Disease, Ulcerative Colitis, Other Musculoskeltal Medical History: Reports: Arthritis Skin Medical History: Denies: None, Eczema, Psoriasis, Other Psychiatric Medical History: Denies: None, Alcohol Dependency, Attention Deficit Hyperactivity Disorder, Bipolar Disorder, Dementia, Depression, General Anxiety Disorder, Personality Disorder, Post Traumatic Stress Disorder, Schizoaffective Disorder, Substance Abuse, Tobacco Dependency, Other Hematology: Reports: Anemia Infectious Medical History: Denies: None, Clostridium Difficile, Hepatitis B, Hepatitis C, HIV, Methicillin-Resistant Staph Aureus, Vancomycin-Resistant Enterococci, Other Past Surgical History Past Surgical History: Reports: Appendectomy Social History Smoking Status: Never Smoker Hx Recreational Drug Use: No Hx Prescription Drug Abuse: No - Advance Directive Resuscitation Status: Full Code Family History Family History: denies: None, Reviewed & Not Pertinent, Arthritis, CAD, COPD, CVA, DM, Hyperlipidemia, Hypertension, Malignancy, Thyroid Disfunction, Other Parental Family History Reviewed: No Children Family History Reviewed: Unknown Sibling(s) Family History Reviewed.: Unknown Medication/Allergy Home Medications: Aspirin [Ecotrin 81 mg EC Tablet] 81 mg PO DAILY 08/21/17 Atorvastatin Calcium [Lipitor 40 mg Tablet] 40 mg PO QHS 08/21/17 Cholecalciferol (Vitamin D3) [Vitamin D3] 1,000 unit PO DAILY 08/21/17 Docusate Calcium [Stool Softener] 240 mg PO DAILY 08/21/17 Finasteride [Proscar 5 mg Tablet] 5 mg PO DAILY 08/21/17 Furosemide [Lasix 20 mg Tablet] 20 mg PO DAILY 08/21/17 Hydrocodone/Acetaminophen [Hydrocodone-Acetamin 5-325 mg] 1 tab PO Q12HP PRN Lisinopril [Prinivil 40 mg Tablet] 40 mg PO DAILY 08/21/17 Melatonin [Melatonin 3 mg Tablet] 3 mg PO QHS 08/21/17 Multivitamin [Tab-A-Allen (Multiple Vitamin) Tablet] 1 tab PO DAILY 08/21/17 Nifedipine [Nifedipine ER] 60 mg PO DAILY 08/21/17 Tamsulosin HCl [Flomax 0.4 mg Cap.sr] 0.4 mg PO DAILY 08/21/17 Temazepam [Restoril 15 mg Capsule] 15 mg PO QHS 08/21/17 Tolterodine Tartrate [Tolterodine Tartrate ER] 4 mg PO DAILY 08/21/17 Tramadol HCl [Ultram 50 mg Tablet] 50 mg PO Q6HP PRN 08/21/17 Allergies/Adverse Reactions: No Known Allergies Allergy (Unverified 08/20/17 17:35) Review of Systems Constitutional: ABSENT: chills, fever(s), headache(s), weight gain, weight loss Eyes: ABSENT: visual disturbances Ears: ABSENT: hearing changes Cardiovascular: ABSENT: chest pain, dyspnea on exertion, edema, orthropnea, palpitations Respiratory: ABSENT: cough, hemoptysis Gastrointestinal: ABSENT: abdominal pain, constipation, diarrhea, hematemesis, hematochezia, nausea, vomiting Genitourinary: PRESENT: difficulty urinating Musculoskeletal: PRESENT: muscle weakness Integumentary: PRESENT: as per HPI Neurological: PRESENT: weakness Psychiatric: ABSENT: anxiety, depression, homidical ideation, suicidal ideation Endocrine: ABSENT: cold intolerance, heat intolerance, polydipsia, polyuria Physical Exam Vital Signs: Temp Pulse Resp BP Pulse Ox 98.9 F 85 16 135/50 H 100 08/21/17 18:34 08/21/17 18:34 08/21/17 18:34 08/21/17 18:34 08/21/17 18:34 Intake & Output 08/20/17 08/21/17 08/22/17 06:59 06:59 06:59 Intake Total 240 Output Total 3800 Balance -3560 Weight 107.9 kg General appearance: PRESENT: no acute distress Head exam: PRESENT: normocephalic Eye exam: PRESENT: EOMI Ear exam: PRESENT: normal external ear exam Neck exam: ABSENT: JVD, lymphadenopathy, thyromegaly Respiratory exam: PRESENT: clear to auscultation arash. ABSENT: rales, rhonchi, wheezes Cardiovascular exam: PRESENT: RRR. ABSENT: diastolic murmur, rubs, systolic murmur GI/Abdominal exam: PRESENT: normal bowel sounds, soft. ABSENT: distended, guarding, mass, organolmegaly, rebound, tenderness Neurological exam: PRESENT: alert, awake, oriented to person, oriented to place , oriented to time, oriented to situation, CN II-XII grossly intact, motor sensory deficit Psychiatric exam: PRESENT: appropriate affect, normal mood. ABSENT: homicidal ideation, suicidal ideation Skin exam: PRESENT: other - 20cm x 15cm x 0cm sacral decubitus ulcer with dark brown dry eschar in the middle. no drainage. Results Laboratory Results: 08/21/17 10:27 08/21/17 10:27 08/21/17 08/21/17 08/21/17 03:45 03:45 03:45 WBC RBC Hgb Hct MCV MCH MCHC RDW Plt Count Seg Neutrophils % Lymphocytes % Monocytes % Eosinophils % Basophils % Absolute Neutrophils Absolute Lymphocytes Absolute Monocytes Absolute Eosinophils Absolute Basophils Sodium 145.6 H Potassium 5.3 H Chloride 110 H Carbon Dioxide 19 L Anion Gap 17 BUN 137 H Creatinine 6.73 H Est GFR ( Amer) 9 L Est GFR (Non-Af Amer) 8 L Glucose 132 H Calcium 8.9 Magnesium 2.3 C-Reactive Protein Vitamin B12 297.0 Folate 12.40 TSH 1.23 Free T4 1.53 08/21/17 08/21/17 10:27 10:27 WBC 16.7 H RBC 3.69 L Hgb 11.0 L Hct 33.4 L MCV 91 MCH 29.7 MCHC 32.8 RDW 14.2 H Plt Count 361 Seg Neutrophils % 75.4 Lymphocytes % 13.2 Monocytes % 10.9 Eosinophils % 0.2 Basophils % 0.3 Absolute Neutrophils 12.6 H Absolute Lymphocytes 2.2 Absolute Monocytes 1.8 H Absolute Eosinophils 0.0 Absolute Basophils 0.1 Sodium 147.1 H Potassium 5.2 H Chloride 110 H Carbon Dioxide 21 L Anion Gap 16 BUN 126 H Creatinine 6.58 H Est GFR ( Amer) 10 L Est GFR (Non-Af Amer) 8 L Glucose 118 H Calcium 9.4 Magnesium C-Reactive Protein 224.2 H Vitamin B12 Folate TSH Free T4 08/21/17 03:45 Creatine Kinase 586 H Impressions: Chest X-Ray 08/20/17 23:09 IMPRESSION: No acute cardiopulmonary findings. Abdomen/Pelvis CT 08/20/17 23:35 IMPRESSION: Moderate dilation of the renal collecting system. Differential diagnosis includes bladder outlet obstruction/dysfunction. Cervical Spine CT 08/21/17 00:00 IMPRESSION: CHRONIC DEGENERATIVE CHANGES. NO ACUTE FINDINGS. Head CT 08/21/17 00:00 IMPRESSION: MILD CHRONIC CHANGES OF ATROPHY AND MICROVASCULAR ISCHEMIA. NO ACUTE PROCESS. EVIDENCE OF ACUTE STROKE: NO. Renal Ultrasound 08/21/17 00:00 IMPRESSION: UNREMARKABLE RENAL AND BLADDER ULTRASOUND. HYDRONEPHROSIS SEEN ON RECENT CT HAS IMPROVED. THIS PROBABLY WAS DUE TO DISTENDED BLADDER WHICH HAS RESOLVED WITH PLACEMENT OF YEPEZ CATHETER. Assessment & Plan - Diagnosis (1) Decubitus ulcer of sacral region, unstageable Is this a current diagnosis for this admission?: Yes - Plan Summary Plan Summary: Will take him to the OR for debridement of the ulcer NPO past midnight.
[2017-08-22] MEDS: LANSOPRAZOLE 15 MG TAB.RAP.DR PO SCH (05:45)
[2017-08-22] MEDS: CLINDAMYCIN 900 MG/D5W RTU 50 ML IV SCH ×2 (05:45→13:55)
[2017-08-22 07:40] LABS: ABSOLUTE BASOPHILS # (AUTO) 0.1 10^3/uL (0.0-0.2); ABSOLUTE EOSINOPHILS # (AUTO) 0.1 10^3/uL (0.0-0.6); ABSOLUTE LYMPHOCYTES (AUTO) 1.9 10^3/uL (0.5-4.7); ABSOLUTE MONOCYTES (AUTO) 1.4 10^3/uL (0.1-1.4); ABSOLUTE NEUT (AUTO) 8.7 10^3/uL (1.7-8.2); BASOPHILS % (AUTO) 0.8 % (0-2); EOSINOPHILS % (AUTO) 0.5 % (0-6); HEMOGLOBIN 10.6 g/dL (13.5-17.0); LYMPHOCYTES % (AUTO) 15.5 % (13-45); MEAN CORPUSCULAR HEMOGLOBIN 29.9 pg (27.0-33.4); MEAN CORPUSCULAR HGB CONC 33.2 g/dL (32.0-36.0); MEAN CORPUSCULAR VOLUME 90 fl (80-97); MONOCYTES % (AUTO) 11.6 % (3-13); PLATELET COUNT 327 10^3/uL (150-450); RED BLOOD COUNT 3.55 10^6/uL (4.35-5.55); RED CELL DISTRIBUTION WIDTH 13.9 % (11.5-14.0); SEGMENTED NEUTROPHILS % (AUTO) 71.6 % (42-78); TOTAL CELLS COUNTED % (AUTO) 100 %; WHITE BLOOD COUNT 12.1 10^3/uL (4.0-10.5)
[2017-08-22 07:52] LABS: ANION GAP 15 (5-19); CALCIUM 8.7 mg/dL (8.4-10.2); CARBON DIOXIDE 21 mmol/L (22-30); CHLORIDE 111 mmol/L (98-107); GLUCOSE 99 mg/dL (75-110); PHOSPHORUS 7.2 mg/dL (2.5-4.5); POTASSIUM 4.4 mmol/L (3.6-5.0); SODIUM 146.8 mmol/L (137-145)
[2017-08-22 08:00] LABS: BLOOD UREA NITROGEN 120 mg/dL (7-20)
[2017-08-22] MEDS: DOCUSATE SODIUM 100 MG/10 ML UDC PO SCH ×2 (10:05→17:59)
[2017-08-22] MEDS: LACTOBACILLUS ACIDOPHILUS 250 MG TAB PO SCH ×2 (10:05→17:59)
[2017-08-22] MEDS: CYANOCOBALAMIN (VITAMIN B-12) INJ 1000 MCG/1 ML VIAL IM SCH (10:05)
[2017-08-22] MEDS: ASCORBIC ACID 500 MG TABLET PO SCH (10:05)
[2017-08-22] MEDS: CEFTRIAXONE SODIUM 1,000 MG in DEXTROSE 5%-WATER 100 ML IV SCH (10:30)
[2017-08-22] MEDS ORDERED: ONDANSETRON HCL INJ/PF 4 MG/2 ML SDV ONE (13:53)
[2017-08-22] MEDS ORDERED: FENTANYL CITRATE INJ/PF 100 MCG/2 ML AMPUL ONE ×2 (13:53→14:54)
[2017-08-22] MEDS ORDERED: MIDAZOLAM 2 MG/2 ML INJ ONE (13:53)
[2017-08-22] MEDS ORDERED: PROPOFOL INJ 200 MG/20 ML VIAL IV ONE ×2 (13:54→14:54)
[2017-08-22] MEDS ORDERED: LIDOCAINE 1% INJ-PF (10 MG/ML) 30 ML SDV ONE (14:00)
[2017-08-22] MEDS ORDERED: BUPIVACAINE HCL 0.25 % INJ/PF (2.5 MG/1 ML) 30 ML VIAL ONE (14:01)
[2017-08-22] MEDS ORDERED: CLINDAMYCIN 900 MG/D5W RTU 50 ML IV ONE (14:05)
[2017-08-22] MEDS ORDERED: DIPHENHYDRAMINE HCL 50 MG/ML VIAL IV PRN (14:49)
[2017-08-22] MEDS ORDERED: PROMETHAZINE HCL INJ 25 MG/1 ML VIAL IV PRN (14:49)
[2017-08-22] MEDS ORDERED: FENTANYL CITRATE INJ/PF 100 MCG/2 ML AMPUL IV PRN ×3 (14:49)
[2017-08-22] MEDS ORDERED: KETAMINE HCL INJ 500 MG/10 ML VIAL ONE (14:54)
[2017-08-22 15:19] LABS: VITAMIN D 1,25 DIHYDROXY 13.7 pg/mL (19.9-79.3)
--- NOTE | 2017-08-22 15:36 | PDOC PROGRESS REPORT ---
Subjective Progress Note for:: 08/22/17 Subjective:: She complains of pain in his feet Review of system All organ systems evaluated and negative except as in subjective All significant laboratories and diagnostics have been reviewed Reason For Visit: DECUBITUS ULCERS,RENAL FAILURE,HYPERKALEMIA Physical Exam Vital Signs: Temp Pulse Resp BP Pulse Ox 97.6 F 75 16 133/50 H 100 08/22/17 12:00 08/22/17 12:00 08/22/17 12:00 08/22/17 12:00 08/22/17 12:00 Intake & Output 08/21/17 08/22/17 08/23/17 06:59 06:59 06:59 Intake Total 240 Output Total 6800 Balance -6560 Weight 110.2 kg General appearance: PRESENT: cooperative, obese Head exam: PRESENT: atraumatic, normocephalic Eye exam: PRESENT: conjunctiva pink, EOMI, PERRLA Ear exam: PRESENT: normal external ear exam Neck exam: PRESENT: full ROM. ABSENT: JVD, lymphadenopathy, tenderness Respiratory exam: PRESENT: clear to auscultation arash, decreased breath sounds Cardiovascular exam: PRESENT: RRR. ABSENT: diastolic murmur, systolic murmur Vascular exam: PRESENT: normal capillary refill GI/Abdominal exam: PRESENT: normal bowel sounds, soft. ABSENT: tenderness Extremities exam: PRESENT: +2 edema. ABSENT: full ROM Musculoskeletal exam: ABSENT: ambulatory Neurological exam: PRESENT: alert, awake, oriented to person, oriented to place , oriented to time, oriented to situation, CN II-XII grossly intact Psychiatric exam: PRESENT: appropriate affect, normal mood Skin exam: PRESENT: erythema Results Laboratory Results: 08/22/17 07:23 08/22/17 07:23 08/22/17 08/22/17 07:23 07:23 WBC 12.1 H RBC 3.55 L Hgb 10.6 L Hct 32.0 L MCV 90 MCH 29.9 MCHC 33.2 RDW 13.9 Plt Count 327 Seg Neutrophils % 71.6 Lymphocytes % 15.5 Monocytes % 11.6 Eosinophils % 0.5 Basophils % 0.8 Absolute Neutrophils 8.7 H Absolute Lymphocytes 1.9 Absolute Monocytes 1.4 Absolute Eosinophils 0.1 Absolute Basophils 0.1 Sodium 146.8 H Potassium 4.4 Chloride 111 H Carbon Dioxide 21 L Anion Gap 15 BUN 120 H Creatinine 5.40 H Est GFR ( Amer) 12 L Est GFR (Non-Af Amer) 10 L Glucose 99 Calcium 8.7 Phosphorus 7.2 H Magnesium 2.1 08/21/17 03:45 Creatine Kinase 586 H Impressions: Chest X-Ray 08/20/17 23:09 IMPRESSION: No acute cardiopulmonary findings. Abdomen/Pelvis CT 08/20/17 23:35 IMPRESSION: Moderate dilation of the renal collecting system. Differential diagnosis includes bladder outlet obstruction/dysfunction. Cervical Spine CT 08/21/17 00:00 IMPRESSION: CHRONIC DEGENERATIVE CHANGES. NO ACUTE FINDINGS. Head CT 08/21/17 00:00 IMPRESSION: MILD CHRONIC CHANGES OF ATROPHY AND MICROVASCULAR ISCHEMIA. NO ACUTE PROCESS. EVIDENCE OF ACUTE STROKE: NO. Renal Ultrasound 08/21/17 00:00 IMPRESSION: UNREMARKABLE RENAL AND BLADDER ULTRASOUND. HYDRONEPHROSIS SEEN ON RECENT CT HAS IMPROVED. THIS PROBABLY WAS DUE TO DISTENDED BLADDER WHICH HAS RESOLVED WITH PLACEMENT OF YEPEZ CATHETER. Assessment & Plan - Diagnosis (1) Acute renal failure Qualifiers: Acute renal failure type: unspecified Qualified Code(s): N17.9 - Acute kidney failure, unspecified Is this a current diagnosis for this admission?: Yes Plan: Appears due to obstructive uropathy . Continue fluids. Renal input appreciated. Trend (2) Decubitus ulcer of sacral region, unstageable Is this a current diagnosis for this admission?: Yes Plan: Change antibiotic to Levaquin and doxycycline to cover gram negatives, gram- positive and MRSA (3) Hyperkalemia Is this a current diagnosis for this admission?: Yes Plan: Resolved (4) Obstructive uropathy Is this a current diagnosis for this admission?: Yes Plan: Continue with Yepez cath and to add Flomax (5) UTI (urinary tract infection) Qualifiers: Urinary tract infection type: site unspecified Hematuria presence: with hematuria Qualified Code(s): N39.0 - Urinary tract infection, site not specified; R31.9 - Hematuria, unspecified; R31.9 - Hematuria, unspecified Is this a current diagnosis for this admission?: Yes Plan: Patient placed on Levaquin. Urine culture not obtained on admission and to order (6) Weakness Is this a current diagnosis for this admission?: Yes Plan: Will benefit from acute rehab (7) BPH (benign prostatic hyperplasia) Qualifiers: Lower urinary tract symptom detail: urinary obstruction Is this a current diagnosis for this admission?: Yes Plan: Likely culprit of presentation and to add Flomax (8) Neuropathy Is this a current diagnosis for this admission?: Yes Plan: Will place on low-dose fentanyl patch and gabapentin - Time Time Spent with patient: 15-24 minutes Medications reviewed and adjusted accordingly: Yes Anticipated discharge: SNF Within: within 72 hours - Inpatient Certification Based on my medical assessment, after consideration of the patient's comorbidities, presenting symptoms, or acuity I expect that the services needed warrant INPATIENT care.: Yes I certify that my determination is in accordance with my understanding of Medicare's requirements for reasonable and necessary INPATIENT services [42 CFR 412.3e].: Yes Medical Necessity: Significant Comorbidiites Make Outpatient Treatment Too Risky , Need Close Monitoring Due to Risk of Patient Decompensation, Need for IV Antibiotics
--- NOTE | 2017-08-22 15:45 | PDOC PROGRESS REPORT ---
Subjective Progress Note for:: 08/22/17 Subjective:: no new surgical issues Reason For Visit: DECUBITUS ULCERS,RENAL FAILURE,HYPERKALEMIA Physical Exam Vital Signs: Temp Pulse Resp BP Pulse Ox 97.6 F 75 16 133/50 H 100 08/22/17 12:00 08/22/17 12:00 08/22/17 12:00 08/22/17 12:00 08/22/17 12:00 Intake & Output 08/21/17 08/22/17 08/23/17 06:59 06:59 06:59 Intake Total 240 Output Total 6800 Balance -6560 Weight 110.2 kg General appearance: PRESENT: no acute distress Respiratory exam: PRESENT: clear to auscultation arash. ABSENT: rales, rhonchi, wheezes Cardiovascular exam: PRESENT: RRR. ABSENT: diastolic murmur, rubs, systolic murmur GI/Abdominal exam: PRESENT: normal bowel sounds, soft. ABSENT: distended, guarding, mass, organolmegaly, rebound, tenderness Neurological exam: PRESENT: alert, awake, oriented to person, oriented to place , oriented to time, oriented to situation, CN II-XII grossly intact, motor sensory deficit Skin exam: PRESENT: other - sacal decubitus ulcer with eschar 20cm x 15cm x 0cm Results Laboratory Results: 08/22/17 07:23 08/22/17 07:23 08/22/17 08/22/17 07:23 07:23 WBC 12.1 H RBC 3.55 L Hgb 10.6 L Hct 32.0 L MCV 90 MCH 29.9 MCHC 33.2 RDW 13.9 Plt Count 327 Seg Neutrophils % 71.6 Lymphocytes % 15.5 Monocytes % 11.6 Eosinophils % 0.5 Basophils % 0.8 Absolute Neutrophils 8.7 H Absolute Lymphocytes 1.9 Absolute Monocytes 1.4 Absolute Eosinophils 0.1 Absolute Basophils 0.1 Sodium 146.8 H Potassium 4.4 Chloride 111 H Carbon Dioxide 21 L Anion Gap 15 BUN 120 H Creatinine 5.40 H Est GFR ( Amer) 12 L Est GFR (Non-Af Amer) 10 L Glucose 99 Calcium 8.7 Phosphorus 7.2 H Magnesium 2.1 08/21/17 03:45 Creatine Kinase 586 H Impressions: Chest X-Ray 02/12/18 23:09 IMPRESSION: No acute cardiopulmonary findings. Abdomen/Pelvis CT 08/20/17 23:35 IMPRESSION: Moderate dilation of the renal collecting system. Differential diagnosis includes bladder outlet obstruction/dysfunction. Cervical Spine CT 08/21/17 00:00 IMPRESSION: CHRONIC DEGENERATIVE CHANGES. NO ACUTE FINDINGS. Head CT 08/21/17 00:00 IMPRESSION: MILD CHRONIC CHANGES OF ATROPHY AND MICROVASCULAR ISCHEMIA. NO ACUTE PROCESS. EVIDENCE OF ACUTE STROKE: NO. Renal Ultrasound 08/21/17 00:00 IMPRESSION: UNREMARKABLE RENAL AND BLADDER ULTRASOUND. HYDRONEPHROSIS SEEN ON RECENT CT HAS IMPROVED. THIS PROBABLY WAS DUE TO DISTENDED BLADDER WHICH HAS RESOLVED WITH PLACEMENT OF YEPEZ CATHETER. Assessment & Plan - Diagnosis (1) Decubitus ulcer of sacral region, unstageable Is this a current diagnosis for this admission?: Yes - Plan Summary Plan Summary: for debridement today
--- NOTE | 2017-08-22 15:57 | Operative Report ---
Operative Report DATE OF SURGERY: 08/22/17 PREOPERATIVE DIAGNOSIS: Unstageable sacral decubitus ulcer with eschar POSTOPERATIVE DIAGNOSIS: Unstageable sacral decubitus ulcer with eschar OPERATION: Excisional debridement of Unstageable sacral decubitus ulcer with eschar with scalpel to subcutaneous tissue SURGEON: Bert Arzate ANESTHESIA: LMAC TISSUE REMOVED OR ALTERED: eschar, nonviable subcutaneous tissue and skin in sacral area COMPLICATIONS: none ESTIMATED BLOOD LOSS: 75ml INTRAOPERATIVE FINDINGS: 20cm x 15cm x 0cm sacral decubitus ulcer with dark eschar on the surface; no drainage. parts of surrounding skin and subcutaneous fatty tissue is not viable. No fascial, muscle or bone exposure PROCEDURE: The patient was brought to the operating and placed on the operating table. Anesthetic sedation was administered and he was positioned prone with supportive paddings. The sacral area was prepped with betadine and sterile drapes laid. A timeout was done. Under sterile aseptic conditions, using the scalpel blade, the eschar and nonviable skin and subcutaneous fat was excised from the surface of the ulcer. Hemostasis was secured with the monopolar electrosurgical unit. The wound was irrigated with saline and a dressing of 4 kerlex moistened with saline was used to pack the wound this was covered with dry 4x4 gauze, ABD and elastic tape. The patient tolerated the procedure well and was taken to the PACU instable condition.
[2017-08-22] MEDS ORDERED: FENTANYL 12 MCG/HR PATCH.TD72 TD ONE (17:00)
[2017-08-22] MEDS: TAMSULOSIN HCL 0.4 MG CAP.SR.24H PO SCH (17:58)
[2017-08-22] MEDS ORDERED: 1/2 NORMAL SALINE 1,000 ML IV PRN (18:36)
--- NOTE | 2017-08-22 21:01 | PDOC PROGRESS REPORT ---
Subjective Progress Note for:: 08/22/17 Subjective:: Patient was seen today in his bed. At the time he was being feed his dinner. He just returned from wound debredment. He says that he feels better compared to yesterday. Yesterday he had a total urine out put of 6.8L. He does not complain chest pain, SOB, fevers or chills. Reason For Visit: DECUBITUS ULCERS,RENAL FAILURE,HYPERKALEMIA Physical Exam Vital Signs: Temp Pulse Resp BP Pulse Ox 97.8 F 68 18 107/41 L 100 08/22/17 18:45 08/22/17 18:45 08/22/17 18:45 08/22/17 18:45 08/22/17 18:45 Intake & Output 08/21/17 08/22/17 08/23/17 06:59 06:59 06:59 Intake Total 240 8630 Output Total 6800 1620 Balance -6560 7010 Weight 110.2 kg General appearance: PRESENT: no acute distress, well-developed, well-nourished Mouth exam: PRESENT: moist, neck supple Respiratory exam: PRESENT: rhonchi - -left lower lobe, right side is clear. ABSENT: accessory muscle use, clear to auscultation arash, crackles, rales, wheezes Cardiovascular exam: PRESENT: RRR, +S1, +S2 GI/Abdominal exam: PRESENT: distended, soft. ABSENT: firm, rebound, rigid, tenderness Extremities exam: ABSENT: pedal edema, tenderness Musculoskeletal exam: PRESENT: normal inspection. ABSENT: tenderness Neurological exam: PRESENT: alert, awake, oriented to person, oriented to place , oriented to time, oriented to situation Psychiatric exam: PRESENT: appropriate affect, normal mood Results Laboratory Results: 08/22/17 07:23 08/22/17 07:23 08/22/17 08/22/17 07:23 07:23 WBC 12.1 H RBC 3.55 L Hgb 10.6 L Hct 32.0 L MCV 90 MCH 29.9 MCHC 33.2 RDW 13.9 Plt Count 327 Seg Neutrophils % 71.6 Lymphocytes % 15.5 Monocytes % 11.6 Eosinophils % 0.5 Basophils % 0.8 Absolute Neutrophils 8.7 H Absolute Lymphocytes 1.9 Absolute Monocytes 1.4 Absolute Eosinophils 0.1 Absolute Basophils 0.1 Sodium 146.8 H Potassium 4.4 Chloride 111 H Carbon Dioxide 21 L Anion Gap 15 BUN 120 H Creatinine 5.40 H Est GFR ( Amer) 12 L Est GFR (Non-Af Amer) 10 L Glucose 99 Calcium 8.7 Phosphorus 7.2 H Magnesium 2.1 08/21/17 03:45 Creatine Kinase 586 H Impressions: Chest X-Ray 08/20/17 23:09 IMPRESSION: No acute cardiopulmonary findings. Abdomen/Pelvis CT 08/20/17 23:35 IMPRESSION: Moderate dilation of the renal collecting system. Differential diagnosis includes bladder outlet obstruction/dysfunction. Cervical Spine CT 08/21/17 00:00 IMPRESSION: CHRONIC DEGENERATIVE CHANGES. NO ACUTE FINDINGS. Head CT 08/21/17 00:00 IMPRESSION: MILD CHRONIC CHANGES OF ATROPHY AND MICROVASCULAR ISCHEMIA. NO ACUTE PROCESS. EVIDENCE OF ACUTE STROKE: NO. Renal Ultrasound 08/21/17 00:00 IMPRESSION: UNREMARKABLE RENAL AND BLADDER ULTRASOUND. HYDRONEPHROSIS SEEN ON RECENT CT HAS IMPROVED. THIS PROBABLY WAS DUE TO DISTENDED BLADDER WHICH HAS RESOLVED WITH PLACEMENT OF YEPEZ CATHETER. Assessment & Plan - Diagnosis (1) Acute renal failure Qualifiers: Acute renal failure type: unspecified Qualified Code(s): N17.9 - Acute kidney failure, unspecified Is this a current diagnosis for this admission?: Yes Plan: Looks to be improving, underlining dehydration along with obstructive nephropathy. Will decrease 1/2 NS to 75mL/hour. (2) Obstructive uropathy Is this a current diagnosis for this admission?: Yes Plan: looks to be improving, continuing on fluids (3) Hyperkalemia Is this a current diagnosis for this admission?: Yes Plan: stable (4) Sacral decubitus ulcer Qualifiers: Pressure ulcer stage: unspecified pressure ulcer stage Qualified Code(s): L89.159 - Pressure ulcer of sacral region, unspecified stage Is this a current diagnosis for this admission?: Yes Plan: currently being managed by surgery (5) UTI (urinary tract infection) Qualifiers: Urinary tract infection type: site unspecified Hematuria presence: with hematuria Qualified Code(s): N39.0 - Urinary tract infection, site not specified; R31.9 - Hematuria, unspecified; R31.9 - Hematuria, unspecified Is this a current diagnosis for this admission?: Yes Plan: currently being treated with clindamycin and ceftriaxone (6) Weakness Is this a current diagnosis for this admission?: Yes - Notes Notes: Case and plan for patient was discussed with Dr. Larry.
[2017-08-22] MEDS ORDERED: DOXYCYCLINE HYCLATE 100 MG TABLET PO SCH (22:00)
[2017-08-22] MEDS: GABAPENTIN 100 MG CAPSULE PO SCH (22:04)
[2017-08-23] MEDS: LANSOPRAZOLE 15 MG TAB.RAP.DR PO SCH (05:03)
[2017-08-23 07:06] LABS: ABSOLUTE EOSINOPHILS # (AUTO) 0.3 10^3/uL (0.0-0.6); ABSOLUTE LYMPHOCYTES (AUTO) 2.4 10^3/uL (0.5-4.7); ABSOLUTE MONOCYTES (AUTO) 1.4 10^3/uL (0.1-1.4); ABSOLUTE NEUT (AUTO) 8.1 10^3/uL (1.7-8.2); BASOPHILS % (AUTO) 0.4 % (0-2); EOSINOPHILS % (AUTO) 2.2 % (0-6); HEMATOCRIT 33.2 % (37.9-51.0); HEMOGLOBIN 10.8 g/dL (13.5-17.0); LYMPHOCYTES % (AUTO) 19.4 % (13-45); MEAN CORPUSCULAR HEMOGLOBIN 29.3 pg (27.0-33.4); MEAN CORPUSCULAR HGB CONC 32.4 g/dL (32.0-36.0); MEAN CORPUSCULAR VOLUME 90 fl (80-97); MONOCYTES % (AUTO) 11.8 % (3-13); PLATELET COUNT 345 10^3/uL (150-450); RED BLOOD COUNT 3.68 10^6/uL (4.35-5.55); RED CELL DISTRIBUTION WIDTH 13.9 % (11.5-14.0); SEGMENTED NEUTROPHILS % (AUTO) 66.2 % (42-78); TOTAL CELLS COUNTED % (AUTO) 100 %; WHITE BLOOD COUNT 12.3 10^3/uL (4.0-10.5)
[2017-08-23 07:16] LABS: ANION GAP 12 (5-19); CALCIUM 8.5 mg/dL (8.4-10.2); CARBON DIOXIDE 23 mmol/L (22-30); CHLORIDE 113 mmol/L (98-107); GLUCOSE 92 mg/dL (75-110); PHOSPHORUS 6.5 mg/dL (2.5-4.5); SODIUM 148.3 mmol/L (137-145)
[2017-08-23 07:29] LABS: BLOOD UREA NITROGEN 98 mg/dL (7-20)
--- NOTE | 2017-08-23 09:31 | Physician Advisory Note ---
Physician Advisor ProgressNote .: Pursuant to the plan for [facility], I have reviewed the medical record for this patient. Physician Advisor Statement: Very nice documentation of ARF due to obstructive uropathy. Please consider documenting, if you agree: 1. "Sacral Decubitus ulcer, stage III, present on admission" (unstageable decubiti are generally stage III or IV, this one had nonviable SubQ fat removed, but no fascia/muscle/bone exposure) 2. "Acute Hypernatremia, suspect due to " (intravascular volume depletion ?) 3. "weakness, likely due to " Thanks for all you do! CK
[2017-08-23] MEDS ORDERED: LEVOFLOXACIN 500 MG/D5W RTU 500 MG/100 ML RTUPB IV SCH (10:00)
[2017-08-23] MEDS: ASCORBIC ACID 500 MG TABLET PO SCH (10:09)
[2017-08-23] MEDS: GABAPENTIN 100 MG CAPSULE PO SCH ×2 (10:09→21:34)
[2017-08-23] MEDS: LACTOBACILLUS ACIDOPHILUS 250 MG TAB PO SCH ×2 (10:09→17:48)
[2017-08-23] MEDS: CHOLECALCIFEROL (D3) 1,000 UNIT TABLET PO SCH (10:09)
[2017-08-23] MEDS: CYANOCOBALAMIN (VITAMIN B-12) INJ 1000 MCG/1 ML VIAL IM SCH (10:10)
[2017-08-23] MEDS: LINEZOLID 600 MG TABLET PO SCH ×2 (10:10→21:34)
[2017-08-23] MEDS: DOCUSATE SODIUM 100 MG/10 ML UDC PO SCH (10:53)
--- NOTE | 2017-08-23 10:54 | PDOC PROGRESS REPORT ---
Subjective Progress Note for:: 08/23/17 Subjective:: No complaints Reason For Visit: DECUBITUS ULCERS,RENAL FAILURE,HYPERKALEMIA Physical Exam Vital Signs: Temp Pulse Resp BP Pulse Ox 97.5 F 73 20 111/45 L 98 08/23/17 07:49 08/23/17 07:49 08/23/17 07:49 08/23/17 07:49 08/23/17 07:49 Intake & Output 08/22/17 08/23/17 08/24/17 06:59 06:59 06:59 Intake Total 240 8955 Output Total 6800 3620 Balance -6560 5335 Weight 110.2 kg 110.1 kg Rectal exam: PRESENT: other - Decubitus wound is very clean with no necrotic debris. No drainage. Results Laboratory Results: 08/23/17 06:46 08/23/17 06:46 08/23/17 08/23/17 06:46 06:46 WBC 12.3 H RBC 3.68 L Hgb 10.8 L Hct 33.2 L MCV 90 MCH 29.3 MCHC 32.4 RDW 13.9 Plt Count 345 Seg Neutrophils % 66.2 Lymphocytes % 19.4 Monocytes % 11.8 Eosinophils % 2.2 Basophils % 0.4 Absolute Neutrophils 8.1 Absolute Lymphocytes 2.4 Absolute Monocytes 1.4 Absolute Eosinophils 0.3 Absolute Basophils 0.0 Sodium 148.3 H Potassium 4.0 Chloride 113 H Carbon Dioxide 23 Anion Gap 12 BUN 98 H D Creatinine 4.18 H Est GFR ( Amer) 16 L Est GFR (Non-Af Amer) 14 L Glucose 92 Calcium 8.5 Phosphorus 6.5 H Magnesium 2.0 08/21/17 03:45 Creatine Kinase 586 H Impressions: Chest X-Ray 08/20/17 23:09 IMPRESSION: No acute cardiopulmonary findings. Abdomen/Pelvis CT 08/20/17 23:35 IMPRESSION: Moderate dilation of the renal collecting system. Differential diagnosis includes bladder outlet obstruction/dysfunction. Cervical Spine CT 08/21/17 00:00 IMPRESSION: CHRONIC DEGENERATIVE CHANGES. NO ACUTE FINDINGS. Head CT 08/21/17 00:00 IMPRESSION: MILD CHRONIC CHANGES OF ATROPHY AND MICROVASCULAR ISCHEMIA. NO ACUTE PROCESS. EVIDENCE OF ACUTE STROKE: NO. Renal Ultrasound 08/21/17 00:00 IMPRESSION: UNREMARKABLE RENAL AND BLADDER ULTRASOUND. HYDRONEPHROSIS SEEN ON RECENT CT HAS IMPROVED. THIS PROBABLY WAS DUE TO DISTENDED BLADDER WHICH HAS RESOLVED WITH PLACEMENT OF YEPEZ CATHETER. Assessment & Plan - Diagnosis (1) Sacral decubitus ulcer Qualifiers: Pressure ulcer stage: unspecified pressure ulcer stage Qualified Code(s): L89.159 - Pressure ulcer of sacral region, unspecified stage Is this a current diagnosis for this admission?: Yes Plan: Status post debridement. The wound looks good. Will plan wound VAC tomorrow.
[2017-08-23] MEDS ORDERED: WATER FOR INJECTION STERILE IV PRN ×2 (12:51)
[2017-08-23] MEDS ORDERED: SODIUM CHLORIDE IV PRN ×2 (12:51)
[2017-08-23] MEDS ORDERED: DEXTROSE 5%-WATER 1000 ML 1,000 ML IV PRN (13:22)
--- NOTE | 2017-08-23 13:52 | PDOC PROGRESS REPORT ---
Subjective Progress Note for:: 08/23/17 Subjective:: Patient refers that the pain is better. Seen by surgeon and accordingly wound looks good. Daughter to bedside and states that patient will need placement in usp. Review of system All organ systems evaluated and negative except as in subjective All significant laboratories and diagnostics have been reviewed Reason For Visit: DECUBITUS ULCERS,RENAL FAILURE,HYPERKALEMIA Physical Exam Vital Signs: Temp Pulse Resp BP Pulse Ox 98.5 F 71 16 124/45 L 98 08/23/17 03:21 08/23/17 03:21 08/23/17 03:21 08/23/17 03:21 08/23/17 03:21 Intake & Output 08/21/17 08/22/17 08/23/17 06:59 06:59 06:59 Intake Total 240 8955 Output Total 6800 3620 Balance -6560 5335 Weight 110.2 kg 110.1 kg General appearance: PRESENT: cooperative, morbidly obese Head exam: PRESENT: atraumatic, normocephalic Eye exam: PRESENT: conjunctiva pink, EOMI, PERRLA Ear exam: PRESENT: normal external ear exam, TM's normal bilaterally Mouth exam: PRESENT: moist Neck exam: PRESENT: full ROM. ABSENT: JVD, lymphadenopathy, tenderness Respiratory exam: PRESENT: clear to auscultation arash Cardiovascular exam: PRESENT: RRR. ABSENT: diastolic murmur, systolic murmur Vascular exam: PRESENT: normal capillary refill GI/Abdominal exam: PRESENT: normal bowel sounds, soft. ABSENT: tenderness Extremities exam: PRESENT: +1 edema. ABSENT: clubbing, full ROM Musculoskeletal exam: ABSENT: ambulatory Neurological exam: PRESENT: alert, awake, oriented to person, oriented to place , oriented to time, oriented to situation, CN II-XII grossly intact Psychiatric exam: PRESENT: appropriate affect, normal mood Skin exam: PRESENT: other - Sacral wound unable to evaluate secondary to recently change dressings Results Laboratory Results: 08/22/17 07:23 08/22/17 07:23 08/22/17 08/22/17 07:23 07:23 WBC 12.1 H RBC 3.55 L Hgb 10.6 L Hct 32.0 L MCV 90 MCH 29.9 MCHC 33.2 RDW 13.9 Plt Count 327 Seg Neutrophils % 71.6 Lymphocytes % 15.5 Monocytes % 11.6 Eosinophils % 0.5 Basophils % 0.8 Absolute Neutrophils 8.7 H Absolute Lymphocytes 1.9 Absolute Monocytes 1.4 Absolute Eosinophils 0.1 Absolute Basophils 0.1 Sodium 146.8 H Potassium 4.4 Chloride 111 H Carbon Dioxide 21 L Anion Gap 15 BUN 120 H Creatinine 5.40 H Est GFR ( Amer) 12 L Est GFR (Non-Af Amer) 10 L Glucose 99 Calcium 8.7 Phosphorus 7.2 H Magnesium 2.1 08/21/17 03:45 Creatine Kinase 586 H Impressions: Chest X-Ray 08/20/17 23:09 IMPRESSION: No acute cardiopulmonary findings. Abdomen/Pelvis CT 08/20/17 23:35 IMPRESSION: Moderate dilation of the renal collecting system. Differential diagnosis includes bladder outlet obstruction/dysfunction. Cervical Spine CT 08/21/17 00:00 IMPRESSION: CHRONIC DEGENERATIVE CHANGES. NO ACUTE FINDINGS. Head CT 08/21/17 00:00 IMPRESSION: MILD CHRONIC CHANGES OF ATROPHY AND MICROVASCULAR ISCHEMIA. NO ACUTE PROCESS. EVIDENCE OF ACUTE STROKE: NO. Renal Ultrasound 08/21/17 00:00 IMPRESSION: UNREMARKABLE RENAL AND BLADDER ULTRASOUND. HYDRONEPHROSIS SEEN ON RECENT CT HAS IMPROVED. THIS PROBABLY WAS DUE TO DISTENDED BLADDER WHICH HAS RESOLVED WITH PLACEMENT OF YEPEZ CATHETER. Assessment & Plan - Diagnosis (1) Acute renal failure Qualifiers: Acute renal failure type: unspecified Qualified Code(s): N17.9 - Acute kidney failure, unspecified Is this a current diagnosis for this admission?: Yes Plan: Appears due to obstructive uropathy . Continue fluids. Renal input appreciated. Trend. Continue IV fluids (2) Hyperkalemia Is this a current diagnosis for this admission?: Yes Plan: Resolved (3) Obstructive uropathy Is this a current diagnosis for this admission?: Yes Plan: Continue with Yepez cath and Flomax (4) UTI (urinary tract infection) Qualifiers: Urinary tract infection type: site unspecified Hematuria presence: with hematuria Qualified Code(s): N39.0 - Urinary tract infection, site not specified; R31.9 - Hematuria, unspecified; R31.9 - Hematuria, unspecified Is this a current diagnosis for this admission?: Yes Plan: Patient placed on Levaquin. Urine culture not obtained on admission (5) Weakness Is this a current diagnosis for this admission?: Yes Plan: Patient will need rehab and usp placement (6) BPH (benign prostatic hyperplasia) Qualifiers: Lower urinary tract symptom detail: urinary obstruction Is this a current diagnosis for this admission?: Yes Plan: Likely culprit of presentation. Continue Flomax (7) Neuropathy Is this a current diagnosis for this admission?: Yes Plan: Continue low-dose fentanyl patch and gabapentin (8) Acute hypernatremia Is this a current diagnosis for this admission?: Yes Plan: Due to dehydration. To put patient on D5 water since all other forms of normal saline not available. To trend (9) Decubitus skin ulcer Qualifiers: Pressure ulcer location: sacral region Pressure ulcer stage: stage 3 Qualified Code(s): L89.153 - Pressure ulcer of sacral region, stage 3 Is this a current diagnosis for this admission?: Yes Plan: Debrided and for wound VAC in a.m. (10) Anemia Qualifiers: Anemia type: unspecified type Qualified Code(s): D64.9 - Anemia, unspecified Is this a current diagnosis for this admission?: Yes Plan: To trend for now - Time Time Spent with patient: 15-24 minutes Medications reviewed and adjusted accordingly: Yes Anticipated discharge: SNF Within: within 72 hours - Inpatient Certification Based on my medical assessment, after consideration of the patient's comorbidities, presenting symptoms, or acuity I expect that the services needed warrant INPATIENT care.: Yes I certify that my determination is in accordance with my understanding of Medicare's requirements for reasonable and necessary INPATIENT services [42 CFR 412.3e].: Yes Medical Necessity: Need Close Monitoring Due to Risk of Patient Decompensation, Need For IV Fluids, Need for Pain Control, Need for IV Antibiotics
[2017-08-23 15:06] LABS: VITAMIN B1 (THIAMINE) 140.8 nmol/L (66.5-200.0)
--- NOTE | 2017-08-23 16:24 | PDOC PROGRESS REPORT ---
Subjective Progress Note for:: 08/23/17 Subjective:: Patient was sitting up happy in his bed at the time of examination. He appears to be more oriented than when he came into the hospital. He denies chest pain, SOB, fevers, chills, nausea, vomiting or pain at time of examination. He produced 3.6L yesterday. Reason For Visit: DECUBITUS ULCERS,RENAL FAILURE,HYPERKALEMIA Physical Exam Vital Signs: Temp Pulse Resp BP Pulse Ox 98.1 F 78 16 117/40 L 100 08/23/17 11:40 08/23/17 14:00 08/23/17 11:40 08/23/17 11:40 08/23/17 11:40 Intake & Output 08/22/17 08/23/17 08/24/17 06:59 06:59 06:59 Intake Total 240 8955 Output Total 6800 3620 Balance -6560 5335 Weight 110.2 kg 110.1 kg General appearance: PRESENT: no acute distress, well-developed, well-nourished Mouth exam: PRESENT: moist, neck supple Neck exam: PRESENT: full ROM. ABSENT: JVD, tracheal deviation Respiratory exam: PRESENT: rhonchi - -left lower lobe. ABSENT: accessory muscle use, clear to auscultation arash, crackles, rales, tachypnea, wheezes Cardiovascular exam: PRESENT: RRR, +S1, +S2 GI/Abdominal exam: PRESENT: distended, soft. ABSENT: firm, rebound, rigid, tenderness Extremities exam: ABSENT: pedal edema, tenderness Musculoskeletal exam: PRESENT: normal inspection. ABSENT: tenderness Neurological exam: PRESENT: alert, awake, oriented to person, oriented to place , oriented to time, oriented to situation Psychiatric exam: PRESENT: appropriate affect, normal mood Skin exam: PRESENT: dry, intact, warm Results Laboratory Results: 08/23/17 06:46 08/23/17 06:46 08/21/17 08/23/17 08/23/17 10:27 06:46 06:46 WBC 12.3 H RBC 3.68 L Hgb 10.8 L Hct 33.2 L MCV 90 MCH 29.3 MCHC 32.4 RDW 13.9 Plt Count 345 Seg Neutrophils % 66.2 Lymphocytes % 19.4 Monocytes % 11.8 Eosinophils % 2.2 Basophils % 0.4 Absolute Neutrophils 8.1 Absolute Lymphocytes 2.4 Absolute Monocytes 1.4 Absolute Eosinophils 0.3 Absolute Basophils 0.0 Sodium 148.3 H Potassium 4.0 Chloride 113 H Carbon Dioxide 23 Anion Gap 12 BUN 98 H D Creatinine 4.18 H Est GFR ( Amer) 16 L Est GFR (Non-Af Amer) 14 L Glucose 92 Calcium 8.5 Phosphorus 6.5 H Magnesium 2.0 Vitamin B1 140.8 08/21/17 03:45 Creatine Kinase 586 H Impressions: Chest X-Ray 08/20/17 23:09 IMPRESSION: No acute cardiopulmonary findings. Abdomen/Pelvis CT 08/20/17 23:35 IMPRESSION: Moderate dilation of the renal collecting system. Differential diagnosis includes bladder outlet obstruction/dysfunction. Cervical Spine CT 08/21/17 00:00 IMPRESSION: CHRONIC DEGENERATIVE CHANGES. NO ACUTE FINDINGS. Head CT 08/21/17 00:00 IMPRESSION: MILD CHRONIC CHANGES OF ATROPHY AND MICROVASCULAR ISCHEMIA. NO ACUTE PROCESS. EVIDENCE OF ACUTE STROKE: NO. Renal Ultrasound 08/21/17 00:00 IMPRESSION: UNREMARKABLE RENAL AND BLADDER ULTRASOUND. HYDRONEPHROSIS SEEN ON RECENT CT HAS IMPROVED. THIS PROBABLY WAS DUE TO DISTENDED BLADDER WHICH HAS RESOLVED WITH PLACEMENT OF MOCTEZUMA CATHETER. Assessment & Plan - Diagnosis (1) Acute renal failure Qualifiers: Acute renal failure type: unspecified Qualified Code(s): N17.9 - Acute kidney failure, unspecified Is this a current diagnosis for this admission?: Yes Plan: looks to be improving, continue on current fluid regiment. (2) Obstructive uropathy Is this a current diagnosis for this admission?: Yes Plan: resolved with a moctezuma in place (3) Acute hypernatremia Is this a current diagnosis for this admission?: Yes Plan: Due to dehydration, will reassess tomorrow after D5W is given for a little while. (4) Hyperkalemia Is this a current diagnosis for this admission?: Yes Plan: currently under control (5) Sacral decubitus ulcer Qualifiers: Pressure ulcer stage: unspecified pressure ulcer stage Qualified Code(s): L89.159 - Pressure ulcer of sacral region, unspecified stage Is this a current diagnosis for this admission?: Yes Plan: managed by surgery (6) UTI (urinary tract infection) Qualifiers: Urinary tract infection type: site unspecified Hematuria presence: with hematuria Qualified Code(s): N39.0 - Urinary tract infection, site not specified; R31.9 - Hematuria, unspecified; R31.9 - Hematuria, unspecified Is this a current diagnosis for this admission?: Yes Plan: currently being treated with clindamycin and ceftriaxone (7) Weakness Is this a current diagnosis for this admission?: Yes Plan: most likely from muscle atrophy from not moving at home. - Notes Notes: Patients case and plan was discussed with Dr. Larry.
[2017-08-23] MEDS: DOCUSATE SODIUM 100 MG CAPSULE PO SCH (17:04)
[2017-08-23] MEDS: TAMSULOSIN HCL 0.4 MG CAP.SR.24H PO SCH (17:48)
[2017-08-24] MEDS ORDERED: VANCOMYCIN HCL 1,000 MG in DEXTROSE 5%-WATER 250 ML IV ONE (04:10)
[2017-08-24] MEDS ORDERED: VANCOMYCIN HCL 0 MG in DEXTROSE 5%-WATER 250 ML IV NR (04:15)
[2017-08-24] MEDS ORDERED: VANCOMYCIN HCL INJ 1000 MG VIAL IV PRN (04:25)
[2017-08-24] MEDS ORDERED: VANCOMYCIN HCL 2,000 MG in DEXTROSE 5%-WATER 500 ML IV ONE (04:30)
[2017-08-24] MEDS ORDERED: VANCOMYCIN HCL INJ 500 MG VIAL PO ONE (04:30)
[2017-08-24] MEDS ORDERED: VANCOMYCIN HCL INJ 1000 MG VIAL ONE (05:13)
[2017-08-24] MEDS ORDERED: VANCOMYCIN HCL INJ 500 MG VIAL ONE (05:13)
[2017-08-24] MEDS: LANSOPRAZOLE 15 MG TAB.RAP.DR PO SCH (05:32)
[2017-08-24 06:26] LABS: ABSOLUTE BASOPHILS # (AUTO) 0.1 10^3/uL (0.0-0.2); ABSOLUTE EOSINOPHILS # (AUTO) 0.5 10^3/uL (0.0-0.6); ABSOLUTE LYMPHOCYTES (AUTO) 2.6 10^3/uL (0.5-4.7); ABSOLUTE MONOCYTES (AUTO) 1.1 10^3/uL (0.1-1.4); ABSOLUTE NEUT (AUTO) 8.5 10^3/uL (1.7-8.2); BASOPHILS % (AUTO) 0.7 % (0-2); EOSINOPHILS % (AUTO) 4.2 % (0-6); HEMATOCRIT 30.6 % (37.9-51.0); HEMOGLOBIN 10.1 g/dL (13.5-17.0); MEAN CORPUSCULAR HEMOGLOBIN 29.8 pg (27.0-33.4); MEAN CORPUSCULAR HGB CONC 33.1 g/dL (32.0-36.0); MEAN CORPUSCULAR VOLUME 90 fl (80-97); MONOCYTES % (AUTO) 8.8 % (3-13); PLATELET COUNT 298 10^3/uL (150-450); RED CELL DISTRIBUTION WIDTH 13.7 % (11.5-14.0); SEGMENTED NEUTROPHILS % (AUTO) 66.3 % (42-78); TOTAL CELLS COUNTED % (AUTO) 100 %; WHITE BLOOD COUNT 12.9 10^3/uL (4.0-10.5)
[2017-08-24 06:44] LABS: ANION GAP 11 (5-19); CALCIUM 8.2 mg/dL (8.4-10.2); CARBON DIOXIDE 22 mmol/L (22-30); CHLORIDE 108 mmol/L (98-107); GLUCOSE 121 mg/dL (75-110); PHOSPHORUS 4.6 mg/dL (2.5-4.5); POTASSIUM 3.5 mmol/L (3.6-5.0); SODIUM 140.6 mmol/L (137-145)
[2017-08-24 06:58] LABS: BLOOD UREA NITROGEN 76 mg/dL (7-20)
--- NOTE | 2017-08-24 09:33 | PDOC PROGRESS REPORT ---
Subjective Progress Note for:: 08/24/17 Subjective:: no complaints. He reports diarrhea is somewhat better this am. Reason For Visit: DECUBITUS ULCERS,RENAL FAILURE,HYPERKALEMIA Physical Exam Vital Signs: Temp Pulse Resp BP Pulse Ox 97.3 F 66 16 119/44 L 100 08/24/17 07:46 08/24/17 07:46 08/24/17 07:46 08/24/17 07:46 08/24/17 07:46 Intake & Output 08/23/17 08/24/17 08/25/17 06:59 06:59 06:59 Intake Total 8955 2020 Output Total 3620 1200 Balance 5335 820 Weight 110.1 kg 189.4 kg General appearance: PRESENT: other - awake and conversant Respiratory exam: PRESENT: clear to auscultation arash Cardiovascular exam: PRESENT: RRR GI/Abdominal exam: PRESENT: soft, other - non tender Results Laboratory Results: 08/24/17 05:18 08/24/17 05:18 08/21/17 08/24/17 08/24/17 10:27 05:18 05:18 WBC 12.9 H RBC 3.40 L Hgb 10.1 L Hct 30.6 L MCV 90 MCH 29.8 MCHC 33.1 RDW 13.7 Plt Count 298 Seg Neutrophils % 66.3 Lymphocytes % 20.0 Monocytes % 8.8 Eosinophils % 4.2 Basophils % 0.7 Absolute Neutrophils 8.5 H Absolute Lymphocytes 2.6 Absolute Monocytes 1.1 Absolute Eosinophils 0.5 Absolute Basophils 0.1 Sodium 140.6 Potassium 3.5 L Chloride 108 H Carbon Dioxide 22 Anion Gap 11 BUN 76 H D Creatinine 2.87 H Est GFR ( Amer) 25 L Est GFR (Non-Af Amer) 21 L Glucose 121 H Calcium 8.2 L Phosphorus 4.6 H Magnesium 1.6 Vitamin B1 140.8 08/21/17 03:45 Creatine Kinase 586 H Impressions: Chest X-Ray 08/20/17 23:09 IMPRESSION: No acute cardiopulmonary findings. Abdomen/Pelvis CT 08/20/17 23:35 IMPRESSION: Moderate dilation of the renal collecting system. Differential diagnosis includes bladder outlet obstruction/dysfunction. Cervical Spine CT 08/21/17 00:00 IMPRESSION: CHRONIC DEGENERATIVE CHANGES. NO ACUTE FINDINGS. Head CT 08/21/17 00:00 IMPRESSION: MILD CHRONIC CHANGES OF ATROPHY AND MICROVASCULAR ISCHEMIA. NO ACUTE PROCESS. EVIDENCE OF ACUTE STROKE: NO. Renal Ultrasound 08/21/17 00:00 IMPRESSION: UNREMARKABLE RENAL AND BLADDER ULTRASOUND. HYDRONEPHROSIS SEEN ON RECENT CT HAS IMPROVED. THIS PROBABLY WAS DUE TO DISTENDED BLADDER WHICH HAS RESOLVED WITH PLACEMENT OF YEPEZ CATHETER. Assessment & Plan - Diagnosis (1) Decubitus skin ulcer Qualifiers: Pressure ulcer location: sacral region Pressure ulcer stage: stage 3 Qualified Code(s): L89.153 - Pressure ulcer of sacral region, stage 3 Is this a current diagnosis for this admission?: Yes Plan: place wound vac today.
[2017-08-24] MEDS: POTASSIUM CHLORIDE 10 MEQ TABLET.SA PO SCH ×2 (09:58→13:13)
[2017-08-24] MEDS: DOCUSATE SODIUM 100 MG CAPSULE PO SCH ×2 (09:59→17:44)
[2017-08-24] MEDS: GABAPENTIN 100 MG CAPSULE PO SCH ×2 (09:59→22:47)
[2017-08-24] MEDS: LACTOBACILLUS ACIDOPHILUS 250 MG TAB PO SCH ×2 (09:59→17:44)
[2017-08-24] MEDS: CYANOCOBALAMIN (VITAMIN B-12) INJ 1000 MCG/1 ML VIAL IM SCH (10:00)
[2017-08-24] MEDS: CHOLECALCIFEROL (D3) 1,000 UNIT TABLET PO SCH (10:00)
[2017-08-24] MEDS: ASCORBIC ACID 500 MG TABLET PO SCH (10:00)
[2017-08-24] MEDS: VANCOMYCIN HCL INJ 500 MG VIAL PO SCH ×3 (10:01→22:46)
[2017-08-24] MEDS: NORMAL SALINE 1000 ML 1,000 ML IV PRN (14:05)
--- NOTE | 2017-08-24 15:24 | PDOC PROGRESS REPORT ---
Subjective Progress Note for:: 08/24/17 Subjective:: Patient was laying in bed awaiting the aid that was going to help feed him. Yesterday the daughter was here urging for him to be placed in a nursing facility. He has no complaints today. He denies chest pain, palpations, SOB, fevers, chills, cough or sputum production. Reason For Visit: DECUBITUS ULCERS,RENAL FAILURE,HYPERKALEMIA Physical Exam Vital Signs: Temp Pulse Resp BP Pulse Ox 98.1 F 65 16 116/41 L 98 08/24/17 11:02 08/24/17 11:02 08/24/17 11:02 08/24/17 11:02 08/24/17 11:02 Intake & Output 08/23/17 08/24/17 08/25/17 06:59 06:59 06:59 Intake Total 8955 2020 Output Total 3620 1200 Balance 5335 820 Weight 110.1 kg 189.4 kg General appearance: PRESENT: no acute distress, morbidly obese, well-developed, well-nourished Mouth exam: PRESENT: moist, neck supple Neck exam: ABSENT: full ROM, JVD Respiratory exam: PRESENT: clear to auscultation arash. ABSENT: accessory muscle use, crackles, rales, rhonchi, wheezes Cardiovascular exam: PRESENT: RRR, +S1, +S2 GI/Abdominal exam: PRESENT: distended, soft. ABSENT: firm, rebound, rigid, tenderness Extremities exam: ABSENT: pedal edema, tenderness Musculoskeletal exam: PRESENT: normal inspection. ABSENT: tenderness Neurological exam: PRESENT: alert, awake, oriented to person, oriented to place , oriented to time, oriented to situation Skin exam: PRESENT: dry, erythema, warm. ABSENT: intact Results Laboratory Results: 08/24/17 05:18 08/24/17 05:18 08/24/17 08/24/17 05:18 05:18 WBC 12.9 H RBC 3.40 L Hgb 10.1 L Hct 30.6 L MCV 90 MCH 29.8 MCHC 33.1 RDW 13.7 Plt Count 298 Seg Neutrophils % 66.3 Lymphocytes % 20.0 Monocytes % 8.8 Eosinophils % 4.2 Basophils % 0.7 Absolute Neutrophils 8.5 H Absolute Lymphocytes 2.6 Absolute Monocytes 1.1 Absolute Eosinophils 0.5 Absolute Basophils 0.1 Sodium 140.6 Potassium 3.5 L Chloride 108 H Carbon Dioxide 22 Anion Gap 11 BUN 76 H D Creatinine 2.87 H Est GFR ( Amer) 25 L Est GFR (Non-Af Amer) 21 L Glucose 121 H Calcium 8.2 L Phosphorus 4.6 H Magnesium 1.6 08/21/17 03:45 Creatine Kinase 586 H Impressions: Chest X-Ray 08/20/17 23:09 IMPRESSION: No acute cardiopulmonary findings. Abdomen/Pelvis CT 08/20/17 23:35 IMPRESSION: Moderate dilation of the renal collecting system. Differential diagnosis includes bladder outlet obstruction/dysfunction. Cervical Spine CT 08/21/17 00:00 IMPRESSION: CHRONIC DEGENERATIVE CHANGES. NO ACUTE FINDINGS. Head CT 08/21/17 00:00 IMPRESSION: MILD CHRONIC CHANGES OF ATROPHY AND MICROVASCULAR ISCHEMIA. NO ACUTE PROCESS. EVIDENCE OF ACUTE STROKE: NO. Renal Ultrasound 08/21/17 00:00 IMPRESSION: UNREMARKABLE RENAL AND BLADDER ULTRASOUND. HYDRONEPHROSIS SEEN ON RECENT CT HAS IMPROVED. THIS PROBABLY WAS DUE TO DISTENDED BLADDER WHICH HAS RESOLVED WITH PLACEMENT OF MOCTEZUMA CATHETER. Assessment & Plan - Diagnosis (1) Acute renal failure Qualifiers: Acute renal failure type: unspecified Qualified Code(s): N17.9 - Acute kidney failure, unspecified Is this a current diagnosis for this admission?: Yes Plan: looks to be improving, switching him to normal saline at 75mL an hour. Incomplete history of his medical base line due to him typically being seen by [facility]. Recommend gentle hydrating over the weekend. (2) Obstructive uropathy Is this a current diagnosis for this admission?: Yes Plan: resolved with a moctezuma in place, will need to be restarted on BPH medication before leaving the hospital. (3) Hyperkalemia Is this a current diagnosis for this admission?: Yes Plan: redrawing potassium after he received 80mEQ of potassium. Patient may need daily potassium replacement as his kidneys keep repairing. Recommend 10 to 20mEQ daily if potassium is low. (4) Acute hypernatremia Is this a current diagnosis for this admission?: Yes Plan: resolved, switching him to normal saline (5) Sacral decubitus ulcer Qualifiers: Pressure ulcer stage: unspecified pressure ulcer stage Qualified Code(s): L89.159 - Pressure ulcer of sacral region, unspecified stage Is this a current diagnosis for this admission?: Yes Plan: managed by surgery (6) UTI (urinary tract infection) Qualifiers: Urinary tract infection type: site unspecified Hematuria presence: with hematuria Qualified Code(s): N39.0 - Urinary tract infection, site not specified; R31.9 - Hematuria, unspecified; R31.9 - Hematuria, unspecified Is this a current diagnosis for this admission?: Yes (7) Weakness Is this a current diagnosis for this admission?: Yes Plan: Recommend he goes to rehab nursing facility after the stay here in the hospital
--- NOTE | 2017-08-24 16:37 | PDOC PROGRESS REPORT ---
Subjective Progress Note for:: 08/24/17 Subjective:: No complaints voiced by patient. Review of system All organ systems evaluated and negative except as in subjective All significant laboratories and diagnostics have been reviewed Reason For Visit: DECUBITUS ULCERS,RENAL FAILURE,HYPERKALEMIA Physical Exam Vital Signs: Temp Pulse Resp BP Pulse Ox 97.5 F 66 18 123/48 L 97 08/24/17 00:31 08/24/17 02:00 08/24/17 00:31 08/24/17 00:31 08/24/17 00:31 Intake & Output 08/23/17 08/24/17 08/25/17 06:59 06:59 06:59 Intake Total 8955 2020 Output Total 3620 1200 Balance 5335 820 Weight 110.1 kg 189.4 kg General appearance: PRESENT: cooperative, obese Head exam: PRESENT: atraumatic, normocephalic Eye exam: PRESENT: conjunctiva pink, EOMI, PERRLA Ear exam: PRESENT: normal external ear exam Mouth exam: PRESENT: moist Neck exam: PRESENT: full ROM. ABSENT: JVD, lymphadenopathy, tenderness Respiratory exam: PRESENT: clear to auscultation arash Cardiovascular exam: PRESENT: RRR. ABSENT: diastolic murmur, systolic murmur Vascular exam: PRESENT: normal capillary refill GI/Abdominal exam: PRESENT: normal bowel sounds, soft. ABSENT: tenderness Extremities exam: ABSENT: full ROM, pedal edema Musculoskeletal exam: ABSENT: ambulatory Neurological exam: PRESENT: alert, awake, oriented to person, oriented to place , oriented to time Psychiatric exam: PRESENT: appropriate affect, normal mood Skin exam: PRESENT: normal color Results Laboratory Results: 08/24/17 05:18 08/24/17 05:18 08/21/17 08/24/17 08/24/17 10:27 05:18 05:18 WBC 12.9 H RBC 3.40 L Hgb 10.1 L Hct 30.6 L MCV 90 MCH 29.8 MCHC 33.1 RDW 13.7 Plt Count 298 Seg Neutrophils % 66.3 Lymphocytes % 20.0 Monocytes % 8.8 Eosinophils % 4.2 Basophils % 0.7 Absolute Neutrophils 8.5 H Absolute Lymphocytes 2.6 Absolute Monocytes 1.1 Absolute Eosinophils 0.5 Absolute Basophils 0.1 Sodium 140.6 Potassium 3.5 L Chloride 108 H Carbon Dioxide 22 Anion Gap 11 BUN 76 H D Creatinine 2.87 H Est GFR ( Amer) 25 L Est GFR (Non-Af Amer) 21 L Glucose 121 H Calcium 8.2 L Phosphorus 4.6 H Magnesium 1.6 Vitamin B1 140.8 08/21/17 03:45 Creatine Kinase 586 H Impressions: Chest X-Ray 08/20/17 23:09 IMPRESSION: No acute cardiopulmonary findings. Abdomen/Pelvis CT 08/20/17 23:35 IMPRESSION: Moderate dilation of the renal collecting system. Differential diagnosis includes bladder outlet obstruction/dysfunction. Cervical Spine CT 08/21/17 00:00 IMPRESSION: CHRONIC DEGENERATIVE CHANGES. NO ACUTE FINDINGS. Head CT 08/21/17 00:00 IMPRESSION: MILD CHRONIC CHANGES OF ATROPHY AND MICROVASCULAR ISCHEMIA. NO ACUTE PROCESS. EVIDENCE OF ACUTE STROKE: NO. Renal Ultrasound 08/21/17 00:00 IMPRESSION: UNREMARKABLE RENAL AND BLADDER ULTRASOUND. HYDRONEPHROSIS SEEN ON RECENT CT HAS IMPROVED. THIS PROBABLY WAS DUE TO DISTENDED BLADDER WHICH HAS RESOLVED WITH PLACEMENT OF YEPEZ CATHETER. Assessment & Plan - Diagnosis (1) Acute renal failure Qualifiers: Acute renal failure type: unspecified Qualified Code(s): N17.9 - Acute kidney failure, unspecified Is this a current diagnosis for this admission?: Yes Plan: Appears due to obstructive uropathy . Continue fluids. Renal input appreciated. Trend. Continues improving (2) Hyperkalemia Is this a current diagnosis for this admission?: Yes Plan: Resolved (3) Obstructive uropathy Is this a current diagnosis for this admission?: Yes Plan: Continue with Yepez cath and Flomax (4) UTI (urinary tract infection) Qualifiers: Urinary tract infection type: site unspecified Hematuria presence: with hematuria Qualified Code(s): N39.0 - Urinary tract infection, site not specified; R31.9 - Hematuria, unspecified; R31.9 - Hematuria, unspecified Is this a current diagnosis for this admission?: No Plan: So far cultures negative (5) Weakness Is this a current diagnosis for this admission?: Yes Plan: Patient will need rehab and fci placement. (6) BPH (benign prostatic hyperplasia) Qualifiers: Lower urinary tract symptom detail: urinary obstruction Is this a current diagnosis for this admission?: Yes Plan: Continue Flomax (7) Neuropathy Is this a current diagnosis for this admission?: Yes Plan: Continue low-dose fentanyl patch and gabapentin (8) Acute hypernatremia Is this a current diagnosis for this admission?: Yes Plan: Due to dehydration. Improved after patient was placed on D5 water now back to normal saline per renal (9) Decubitus skin ulcer Qualifiers: Pressure ulcer location: sacral region Pressure ulcer stage: stage 3 Qualified Code(s): L89.153 - Pressure ulcer of sacral region, stage 3 Is this a current diagnosis for this admission?: Yes Plan: Being managed by surgery (10) Anemia Qualifiers: Anemia type: unspecified type Qualified Code(s): D64.9 - Anemia, unspecified Is this a current diagnosis for this admission?: Yes Plan: To trend for now (11) C. difficile diarrhea Is this a current diagnosis for this admission?: Yes Plan: Will continue vancomycin p.o., lactobacillus and will add Metamucil for bulk (12) Hypokalemia due to loss of potassium Is this a current diagnosis for this admission?: Yes Plan: Replace orally and trend - Time Time Spent with patient: 15-24 minutes Medications reviewed and adjusted accordingly: Yes Anticipated discharge: SNF Within: within 72 hours - Inpatient Certification Based on my medical assessment, after consideration of the patient's comorbidities, presenting symptoms, or acuity I expect that the services needed warrant INPATIENT care.: Yes I certify that my determination is in accordance with my understanding of Medicare's requirements for reasonable and necessary INPATIENT services [42 CFR 412.3e].: Yes Medical Necessity: Need Close Monitoring Due to Risk of Patient Decompensation, Need for Pain Control
[2017-08-24] MEDS: TAMSULOSIN HCL 0.4 MG CAP.SR.24H PO SCH (17:44)
[2017-08-24] MEDS: PSYLLIUM SEED-SF 5.85 GM PACKET PO SCH (18:04)
[2017-08-24] MEDS ORDERED: TRAMADOL HCL 50 MG TABLET PO ONE (23:00)
[2017-08-24] MEDS ORDERED: TEMAZEPAM 7.5 MG CAPSULE PO ONE (23:30)
[2017-08-25] MEDS: VANCOMYCIN HCL INJ 500 MG VIAL PO SCH ×4 (03:49→20:28)
[2017-08-25] MEDS: LANSOPRAZOLE 15 MG TAB.RAP.DR PO SCH (05:02)
[2017-08-25 06:28] LABS: ABSOLUTE EOSINOPHILS # (AUTO) 0.7 10^3/uL (0.0-0.6); ABSOLUTE LYMPHOCYTES (AUTO) 2.8 10^3/uL (0.5-4.7); ABSOLUTE MONOCYTES (AUTO) 1.3 10^3/uL (0.1-1.4); ABSOLUTE NEUT (AUTO) 8.7 10^3/uL (1.7-8.2); BASOPHILS % (AUTO) 0.2 % (0-2); HEMATOCRIT 29.4 % (37.9-51.0); HEMOGLOBIN 9.6 g/dL (13.5-17.0); LYMPHOCYTES % (AUTO) 20.6 % (13-45); MEAN CORPUSCULAR HEMOGLOBIN 29.7 pg (27.0-33.4); MEAN CORPUSCULAR HGB CONC 32.6 g/dL (32.0-36.0); MEAN CORPUSCULAR VOLUME 91 fl (80-97); MONOCYTES % (AUTO) 9.7 % (3-13); PLATELET COUNT 304 10^3/uL (150-450); RED BLOOD COUNT 3.22 10^6/uL (4.35-5.55); RED CELL DISTRIBUTION WIDTH 13.5 % (11.5-14.0); SEGMENTED NEUTROPHILS % (AUTO) 64.5 % (42-78); TOTAL CELLS COUNTED % (AUTO) 100 %; WHITE BLOOD COUNT 13.4 10^3/uL (4.0-10.5)
[2017-08-25 06:47] LABS: ANION GAP 11 (5-19); BLOOD UREA NITROGEN 55 mg/dL (7-20); CALCIUM 8.3 mg/dL (8.4-10.2); CARBON DIOXIDE 21 mmol/L (22-30); CHLORIDE 112 mmol/L (98-107); GLUCOSE 82 mg/dL (75-110); POTASSIUM 4.1 mmol/L (3.6-5.0)
[2017-08-25] MEDS: CHOLECALCIFEROL (D3) 1,000 UNIT TABLET PO SCH (09:13)
[2017-08-25] MEDS: LACTOBACILLUS ACIDOPHILUS 250 MG TAB PO SCH ×2 (09:13→17:46)
[2017-08-25] MEDS: ASCORBIC ACID 500 MG TABLET PO SCH (09:13)
[2017-08-25] MEDS: PSYLLIUM SEED-SF 5.85 GM PACKET PO SCH ×2 (09:13→17:46)
[2017-08-25] MEDS: FENTANYL 12 MCG/HR PATCH.TD72 TD SCH (09:13)
[2017-08-25] MEDS: CYANOCOBALAMIN (VITAMIN B-12) INJ 1000 MCG/1 ML VIAL IM SCH (09:13)
[2017-08-25] MEDS: DOCUSATE SODIUM 100 MG CAPSULE PO SCH ×2 (09:13→17:46)
[2017-08-25] MEDS: GABAPENTIN 100 MG CAPSULE PO SCH ×2 (09:13→21:35)
--- NOTE | 2017-08-25 12:29 | PDOC PROGRESS REPORT ---
Subjective Progress Note for:: 08/25/17 Subjective:: comfortable, still diarrhea Reason For Visit: DECUBITUS ULCERS,RENAL FAILURE,HYPERKALEMIA Physical Exam Vital Signs: Temp Pulse Resp BP Pulse Ox 98.4 F 77 18 116/37 L 99 08/25/17 07:53 08/25/17 07:53 08/25/17 07:53 08/25/17 07:53 08/25/17 07:53 Intake & Output 08/24/17 08/25/17 08/26/17 06:59 06:59 06:59 Intake Total 2020 3021 Output Total 1200 2500 Balance 820 521 Weight 189.4 kg 113.7 kg General appearance: PRESENT: no acute distress Respiratory exam: PRESENT: clear to auscultation arash Cardiovascular exam: PRESENT: RRR Skin exam: PRESENT: other - Sacrum: Woundvac in place Results Laboratory Results: 08/25/17 05:29 08/25/17 05:29 08/24/17 08/25/17 08/25/17 15:40 05:29 05:29 WBC 13.4 H RBC 3.22 L Hgb 9.6 L Hct 29.4 L MCV 91 MCH 29.7 MCHC 32.6 RDW 13.5 Plt Count 304 Seg Neutrophils % 64.5 Lymphocytes % 20.6 Monocytes % 9.7 Eosinophils % 5.0 Basophils % 0.2 Absolute Neutrophils 8.7 H Absolute Lymphocytes 2.8 Absolute Monocytes 1.3 Absolute Eosinophils 0.7 H Absolute Basophils 0.0 Sodium 144.0 Potassium 4.3 4.1 Chloride 112 H Carbon Dioxide 21 L Anion Gap 11 BUN 55 H Creatinine 2.11 H Est GFR ( Amer) 36 L Est GFR (Non-Af Amer) 30 L Glucose 82 Calcium 8.3 L Magnesium 1.6 08/23/17 06:00 Catheterized Urine Urine Culture - Final NO GROWTH 2 DAYS 08/21/17 03:45 Creatine Kinase 586 H Impressions: Chest X-Ray 08/20/17 23:09 IMPRESSION: No acute cardiopulmonary findings. Abdomen/Pelvis CT 08/20/17 23:35 IMPRESSION: Moderate dilation of the renal collecting system. Differential diagnosis includes bladder outlet obstruction/dysfunction. Cervical Spine CT 08/21/17 00:00 IMPRESSION: CHRONIC DEGENERATIVE CHANGES. NO ACUTE FINDINGS. Head CT 08/21/17 00:00 IMPRESSION: MILD CHRONIC CHANGES OF ATROPHY AND MICROVASCULAR ISCHEMIA. NO ACUTE PROCESS. EVIDENCE OF ACUTE STROKE: NO. Renal Ultrasound 08/21/17 00:00 IMPRESSION: UNREMARKABLE RENAL AND BLADDER ULTRASOUND. HYDRONEPHROSIS SEEN ON RECENT CT HAS IMPROVED. THIS PROBABLY WAS DUE TO DISTENDED BLADDER WHICH HAS RESOLVED WITH PLACEMENT OF YEPEZ CATHETER. Assessment & Plan - Diagnosis (1) Decubitus skin ulcer Qualifiers: Pressure ulcer location: sacral region Pressure ulcer stage: stage 3 Qualified Code(s): L89.153 - Pressure ulcer of sacral region, stage 3 Is this a current diagnosis for this admission?: Yes Plan: A/ Sacral decubitus WoundVac in place P/ check decubitus tomorrow at the time of WoundVac change
--- NOTE | 2017-08-25 13:25 | PDOC PROGRESS REPORT ---
Subjective Progress Note for:: 08/25/17 Subjective:: states he feels ok today, denies chest pain, palpitations, fevers/chills, n/v. has rectal tube with green, chunky stool and moctezuma with dk yellow urine in place ; wound vac on sacrum with cloudy, purulent appearing material in tubing. still very weak, hasn't walked without assistance since last year. slept better after restoril and ultram given last night and asking for same tonight. ROS: all systems reviewed, see above, remaining systems negative. Reason For Visit: DECUBITUS ULCERS,RENAL FAILURE,HYPERKALEMIA Physical Exam Vital Signs: Temp Pulse Resp BP Pulse Ox 98.4 F 77 18 116/37 L 99 08/25/17 07:53 08/25/17 07:53 08/25/17 07:53 08/25/17 07:53 08/25/17 07:53 Intake & Output 08/24/17 08/25/17 08/26/17 06:59 06:59 06:59 Intake Total 2020 3021 Output Total 1200 2500 Balance 820 521 Weight 189.4 kg 113.7 kg General appearance: PRESENT: no acute distress, well-developed, well-nourished Head exam: PRESENT: atraumatic, normocephalic Eye exam: ABSENT: conjunctival injection, scleral icterus Mouth exam: PRESENT: moist, tongue midline Neck exam: PRESENT: full ROM. ABSENT: tenderness Respiratory exam: PRESENT: clear to auscultation arash, unlabored. ABSENT: accessory muscle use Cardiovascular exam: PRESENT: RRR. ABSENT: systolic murmur, tachycardia GI/Abdominal exam: PRESENT: normal bowel sounds, soft. ABSENT: tenderness Extremities exam: PRESENT: pedal edema - trace. ABSENT: tenderness Neurological exam: PRESENT: alert, awake, oriented to person, oriented to place , oriented to situation Psychiatric exam: PRESENT: appropriate affect, normal mood Results Laboratory Results: 08/25/17 05:29 08/25/17 05:29 08/24/17 08/25/17 08/25/17 15:40 05:29 05:29 WBC 13.4 H RBC 3.22 L Hgb 9.6 L Hct 29.4 L MCV 91 MCH 29.7 MCHC 32.6 RDW 13.5 Plt Count 304 Seg Neutrophils % 64.5 Lymphocytes % 20.6 Monocytes % 9.7 Eosinophils % 5.0 Basophils % 0.2 Absolute Neutrophils 8.7 H Absolute Lymphocytes 2.8 Absolute Monocytes 1.3 Absolute Eosinophils 0.7 H Absolute Basophils 0.0 Sodium 144.0 Potassium 4.3 4.1 Chloride 112 H Carbon Dioxide 21 L Anion Gap 11 BUN 55 H Creatinine 2.11 H Est GFR ( Amer) 36 L Est GFR (Non-Af Amer) 30 L Glucose 82 Calcium 8.3 L Magnesium 1.6 08/23/17 06:00 Catheterized Urine Urine Culture - Final NO GROWTH 2 DAYS 08/21/17 03:45 Creatine Kinase 586 H Impressions: Chest X-Ray 08/20/17 23:09 IMPRESSION: No acute cardiopulmonary findings. Abdomen/Pelvis CT 08/20/17 23:35 IMPRESSION: Moderate dilation of the renal collecting system. Differential diagnosis includes bladder outlet obstruction/dysfunction. Cervical Spine CT 08/21/17 00:00 IMPRESSION: CHRONIC DEGENERATIVE CHANGES. NO ACUTE FINDINGS. Head CT 08/21/17 00:00 IMPRESSION: MILD CHRONIC CHANGES OF ATROPHY AND MICROVASCULAR ISCHEMIA. NO ACUTE PROCESS. EVIDENCE OF ACUTE STROKE: NO. Renal Ultrasound 08/21/17 00:00 IMPRESSION: UNREMARKABLE RENAL AND BLADDER ULTRASOUND. HYDRONEPHROSIS SEEN ON RECENT CT HAS IMPROVED. THIS PROBABLY WAS DUE TO DISTENDED BLADDER WHICH HAS RESOLVED WITH PLACEMENT OF MOCTEZUMA CATHETER. Status: Imported from PACS Assessment & Plan - Diagnosis (1) C. difficile diarrhea Is this a current diagnosis for this admission?: Yes Plan: STABLE. ON ORAL VANC AND RECTAL TUBE TO DIVERT STOOL AWAY FROM SACRAL WOUND (2) Acute renal failure Qualifiers: Acute renal failure type: unspecified Qualified Code(s): N17.9 - Acute kidney failure, unspecified Is this a current diagnosis for this admission?: Yes Plan: renal function improving with gentle IVFs; avoid nephrotoxic meds, further treatment per nephro (3) Anemia Qualifiers: Anemia type: unspecified type Qualified Code(s): D64.9 - Anemia, unspecified Is this a current diagnosis for this admission?: Yes Plan: stable H/h (4) BPH (benign prostatic hyperplasia) Qualifiers: Lower urinary tract symptom detail: urinary obstruction Is this a current diagnosis for this admission?: Yes Plan: will need flomax and catheter/bladder training going forward (5) Hypokalemia due to loss of potassium Is this a current diagnosis for this admission?: Yes Plan: fluctuating with renal function and replacement; continue to monitor (6) Neuropathy Is this a current diagnosis for this admission?: Yes Plan: continue current regimen; will need PT and rehab at disposition (7) Obstructive uropathy Is this a current diagnosis for this admission?: Yes Plan: BPH, treat as above (8) Sacral decubitus ulcer Qualifiers: Pressure ulcer stage: unspecified pressure ulcer stage Qualified Code(s): L89.159 - Pressure ulcer of sacral region, unspecified stage Is this a current diagnosis for this admission?: Yes Plan: stable with wound vac in place, surgery to re-eval in am (9) Weakness Is this a current diagnosis for this admission?: Yes Plan: stable; needs ongoing PT and rehab - Time Time Spent with patient: 25-34 minutes
[2017-08-25] MEDS: TAMSULOSIN HCL 0.4 MG CAP.SR.24H PO SCH (17:45)
[2017-08-25] MEDS: TRAMADOL HCL 50 MG TABLET PO PRN (21:34)
[2017-08-25] MEDS: TEMAZEPAM 7.5 MG CAPSULE PO PRN (21:35)
[2017-08-26] MEDS: VANCOMYCIN HCL INJ 500 MG VIAL PO SCH ×4 (03:51→20:09)
[2017-08-26] MEDS: LANSOPRAZOLE 15 MG TAB.RAP.DR PO SCH (06:34)
[2017-08-26 06:42] LABS: ABSOLUTE BASOPHILS # (AUTO) 0.1 10^3/uL (0.0-0.2); ABSOLUTE EOSINOPHILS # (AUTO) 0.5 10^3/uL (0.0-0.6); ABSOLUTE LYMPHOCYTES (AUTO) 2.3 10^3/uL (0.5-4.7); ABSOLUTE MONOCYTES (AUTO) 1.2 10^3/uL (0.1-1.4); ABSOLUTE NEUT (AUTO) 10.5 10^3/uL (1.7-8.2); BASOPHILS % (AUTO) 0.6 % (0-2); EOSINOPHILS % (AUTO) 3.4 % (0-6); HEMATOCRIT 29.3 % (37.9-51.0); HEMOGLOBIN 9.5 g/dL (13.5-17.0); LYMPHOCYTES % (AUTO) 15.7 % (13-45); MEAN CORPUSCULAR HEMOGLOBIN 29.3 pg (27.0-33.4); MEAN CORPUSCULAR HGB CONC 32.4 g/dL (32.0-36.0); MEAN CORPUSCULAR VOLUME 91 fl (80-97); MONOCYTES % (AUTO) 7.9 % (3-13); PLATELET COUNT 291 10^3/uL (150-450); RED BLOOD COUNT 3.23 10^6/uL (4.35-5.55); RED CELL DISTRIBUTION WIDTH 13.7 % (11.5-14.0); SEGMENTED NEUTROPHILS % (AUTO) 72.4 % (42-78); TOTAL CELLS COUNTED % (AUTO) 100 %; WHITE BLOOD COUNT 14.5 10^3/uL (4.0-10.5)
[2017-08-26 07:19] LABS: ANION GAP 10 (5-19); BLOOD UREA NITROGEN 40 mg/dL (7-20); CALCIUM 8.3 mg/dL (8.4-10.2); CARBON DIOXIDE 20 mmol/L (22-30); CHLORIDE 114 mmol/L (98-107); GLUCOSE 119 mg/dL (75-110); SODIUM 143.7 mmol/L (137-145)
[2017-08-26] MEDS: LACTOBACILLUS ACIDOPHILUS 250 MG TAB PO SCH ×2 (10:20→18:06)
[2017-08-26] MEDS: CYANOCOBALAMIN (VITAMIN B-12) INJ 1000 MCG/1 ML VIAL IM SCH (10:20)
[2017-08-26] MEDS: PSYLLIUM SEED-SF 5.85 GM PACKET PO SCH ×2 (10:20→18:06)
[2017-08-26] MEDS: GABAPENTIN 100 MG CAPSULE PO SCH ×2 (10:21→21:47)
[2017-08-26] MEDS: DOCUSATE SODIUM 100 MG CAPSULE PO SCH ×2 (10:21→18:06)
[2017-08-26] MEDS: ASCORBIC ACID 500 MG TABLET PO SCH (10:21)
[2017-08-26] MEDS: CHOLECALCIFEROL (D3) 1,000 UNIT TABLET PO SCH (10:21)
[2017-08-26] MEDS: TRAMADOL HCL 50 MG TABLET PO PRN ×2 (11:43→21:47)
--- NOTE | 2017-08-26 13:36 | PDOC PROGRESS REPORT ---
Subjective Progress Note for:: 08/26/17 Subjective:: comfortable Reason For Visit: DECUBITUS ULCERS,RENAL FAILURE,HYPERKALEMIA Physical Exam Vital Signs: Temp Pulse Resp BP Pulse Ox 98.5 F 86 16 145/70 H 99 08/26/17 12:00 08/26/17 12:00 08/26/17 12:00 08/26/17 12:00 08/26/17 12:00 Intake & Output 08/25/17 08/26/17 08/27/17 06:59 06:59 06:59 Intake Total 3021 2828 Output Total 2500 3550 Balance 521 -722 Weight 113.7 kg 117.2 kg Skin exam: PRESENT: other - 1) sacral decunbitus clean, no drainage, no odor, pink 2) Left mid-antrerior thigh: small area of decubitus grade 2 with fibrinous material Results Laboratory Results: 08/26/17 06:00 08/26/17 05:40 08/26/17 08/26/17 05:40 06:00 WBC 14.5 H RBC 3.23 L Hgb 9.5 L Hct 29.3 L MCV 91 MCH 29.3 MCHC 32.4 RDW 13.7 Plt Count 291 Seg Neutrophils % 72.4 Lymphocytes % 15.7 Monocytes % 7.9 Eosinophils % 3.4 Basophils % 0.6 Absolute Neutrophils 10.5 H Absolute Lymphocytes 2.3 Absolute Monocytes 1.2 Absolute Eosinophils 0.5 Absolute Basophils 0.1 Sodium 143.7 Potassium 4.0 Chloride 114 H Carbon Dioxide 20 L Anion Gap 10 BUN 40 H Creatinine 1.74 H Est GFR ( Amer) 45 L Est GFR (Non-Af Amer) 37 L Glucose 119 H Calcium 8.3 L Magnesium 1.6 08/23/17 06:00 Catheterized Urine Urine Culture - Final NO GROWTH 2 DAYS 08/21/17 03:45 Creatine Kinase 586 H Impressions: Chest X-Ray 08/20/17 23:09 IMPRESSION: No acute cardiopulmonary findings. Abdomen/Pelvis CT 08/20/17 23:35 IMPRESSION: Moderate dilation of the renal collecting system. Differential diagnosis includes bladder outlet obstruction/dysfunction. Cervical Spine CT 08/21/17 00:00 IMPRESSION: CHRONIC DEGENERATIVE CHANGES. NO ACUTE FINDINGS. Head CT 08/21/17 00:00 IMPRESSION: MILD CHRONIC CHANGES OF ATROPHY AND MICROVASCULAR ISCHEMIA. NO ACUTE PROCESS. EVIDENCE OF ACUTE STROKE: NO. Renal Ultrasound 08/21/17 00:00 IMPRESSION: UNREMARKABLE RENAL AND BLADDER ULTRASOUND. HYDRONEPHROSIS SEEN ON RECENT CT HAS IMPROVED. THIS PROBABLY WAS DUE TO DISTENDED BLADDER WHICH HAS RESOLVED WITH PLACEMENT OF YEPEZ CATHETER. Assessment & Plan - Diagnosis (1) Decubitus skin ulcer Qualifiers: Pressure ulcer location: sacral region Pressure ulcer stage: stage 3 Qualified Code(s): L89.153 - Pressure ulcer of sacral region, stage 3 Is this a current diagnosis for this admission?: Yes - Plan Summary Plan Summary: A/ Sacral decubitus grade3, clean Left anterior midthigh, decubitus grade 2 covered by fibrinous material P/ Continue WoundVac treatment of sacral decubitus Apply Santyl ointment to left midthigh decubitus until clean
[2017-08-26] MEDS: NORMAL SALINE 1000 ML 1,000 ML IV PRN ×2 (13:59)
[2017-08-26] MEDS ORDERED: COLLAGENASE CLOSTRIDIUM HIST. OINT 30 GM TP ONE (15:00)
--- NOTE | 2017-08-26 15:57 | PDOC PROGRESS REPORT ---
Subjective Progress Note for:: 08/26/17 Subjective:: states he feels ok again today, denies chest pain, palpitations, fevers/chills, n/v. has rectal tube with thin green, liquid stool and moctezuma with dk yellow urine in place; wound vac on sacrum with cloudy, purulent appearing material in tubing around 50ml last 48 hrs. still very weak, hasn't walked without assistance since last year. ROS: all systems reviewed, see above, remaining systems negative. Reason For Visit: DECUBITUS ULCERS,RENAL FAILURE,HYPERKALEMIA Physical Exam Vital Signs: Temp Pulse Resp BP Pulse Ox 98.5 F 86 16 145/70 H 99 08/26/17 12:00 08/26/17 12:00 08/26/17 12:00 08/26/17 12:00 08/26/17 12:00 Intake & Output 08/25/17 08/26/17 08/27/17 06:59 06:59 06:59 Intake Total 3021 2828 Output Total 2500 3550 Balance 521 -722 Weight 113.7 kg 117.2 kg General appearance: PRESENT: no acute distress, well-developed, well-nourished Head exam: PRESENT: atraumatic, normocephalic Mouth exam: PRESENT: moist, tongue midline Respiratory exam: PRESENT: clear to auscultation arash, unlabored. ABSENT: accessory muscle use Cardiovascular exam: PRESENT: RRR. ABSENT: systolic murmur, tachycardia GI/Abdominal exam: PRESENT: normal bowel sounds, soft; rectal tube and moctezuma. ABSENT: tenderness Extremities exam: PRESENT: pedal edema - trace. ABSENT: tenderness Neurological exam: PRESENT: alert, awake, oriented to person, oriented to place , oriented to situation Psychiatric exam: PRESENT: appropriate affect, normal mood Results Laboratory Results: 08/26/17 06:00 08/26/17 05:40 08/26/17 08/26/17 05:40 06:00 WBC 14.5 H RBC 3.23 L Hgb 9.5 L Hct 29.3 L MCV 91 MCH 29.3 MCHC 32.4 RDW 13.7 Plt Count 291 Seg Neutrophils % 72.4 Lymphocytes % 15.7 Monocytes % 7.9 Eosinophils % 3.4 Basophils % 0.6 Absolute Neutrophils 10.5 H Absolute Lymphocytes 2.3 Absolute Monocytes 1.2 Absolute Eosinophils 0.5 Absolute Basophils 0.1 Sodium 143.7 Potassium 4.0 Chloride 114 H Carbon Dioxide 20 L Anion Gap 10 BUN 40 H Creatinine 1.74 H Est GFR ( Amer) 45 L Est GFR (Non-Af Amer) 37 L Glucose 119 H Calcium 8.3 L Magnesium 1.6 08/21/17 03:45 Creatine Kinase 586 H Impressions: Chest X-Ray 08/20/17 23:09 IMPRESSION: No acute cardiopulmonary findings. Abdomen/Pelvis CT 08/20/17 23:35 IMPRESSION: Moderate dilation of the renal collecting system. Differential diagnosis includes bladder outlet obstruction/dysfunction. Cervical Spine CT 08/21/17 00:00 IMPRESSION: CHRONIC DEGENERATIVE CHANGES. NO ACUTE FINDINGS. Head CT 08/21/17 00:00 IMPRESSION: MILD CHRONIC CHANGES OF ATROPHY AND MICROVASCULAR ISCHEMIA. NO ACUTE PROCESS. EVIDENCE OF ACUTE STROKE: NO. Renal Ultrasound 08/21/17 00:00 IMPRESSION: UNREMARKABLE RENAL AND BLADDER ULTRASOUND. HYDRONEPHROSIS SEEN ON RECENT CT HAS IMPROVED. THIS PROBABLY WAS DUE TO DISTENDED BLADDER WHICH HAS RESOLVED WITH PLACEMENT OF MOCTEZUMA CATHETER. Assessment & Plan - Diagnosis (1) C. difficile diarrhea Is this a current diagnosis for this admission?: Yes Plan: STABLE. ON ORAL VANC AND RECTAL TUBE TO DIVERT STOOL AWAY FROM SACRAL WOUND (2) Acute renal failure Qualifiers: Acute renal failure type: unspecified Qualified Code(s): N17.9 - Acute kidney failure, unspecified Is this a current diagnosis for this admission?: Yes Plan: renal function improving with gentle IVFs; avoid nephrotoxic meds, further treatment per nephro. can likely d/c IVFs Sunday (3) Anemia Qualifiers: Anemia type: unspecified type Qualified Code(s): D64.9 - Anemia, unspecified Is this a current diagnosis for this admission?: Yes Plan: stable H/h (4) BPH (benign prostatic hyperplasia) Qualifiers: Lower urinary tract symptom detail: urinary obstruction Is this a current diagnosis for this admission?: Yes Plan: continue flomax and catheter/bladder training going forward (5) Hypokalemia due to loss of potassium Is this a current diagnosis for this admission?: Yes Plan: fluctuating with renal function and replacement; continue to monitor (6) Neuropathy Is this a current diagnosis for this admission?: Yes Plan: continue current regimen; will need PT and rehab at disposition (7) Obstructive uropathy Is this a current diagnosis for this admission?: Yes Plan: BPH, treat as above (8) Sacral decubitus ulcer Qualifiers: Pressure ulcer stage: unspecified pressure ulcer stage Qualified Code(s): L89.159 - Pressure ulcer of sacral region, unspecified stage Is this a current diagnosis for this admission?: Yes Plan: improved with wound vac in place, surgery co-managing (9) Weakness Is this a current diagnosis for this admission?: Yes Plan: stable; needs ongoing PT and rehab - Time Time Spent with patient: 25-34 minutes
[2017-08-26] MEDS: TAMSULOSIN HCL 0.4 MG CAP.SR.24H PO SCH (18:07)
[2017-08-26] MEDS: TEMAZEPAM 7.5 MG CAPSULE PO PRN (21:47)
[2017-08-27] MEDS: VANCOMYCIN HCL INJ 500 MG VIAL PO SCH ×4 (03:25→23:11)
[2017-08-27] MEDS: NORMAL SALINE 1000 ML 1,000 ML IV PRN ×2 (03:25→17:23)
[2017-08-27] MEDS: LANSOPRAZOLE 15 MG TAB.RAP.DR PO SCH (05:02)
[2017-08-27 06:49] LABS: ABSOLUTE BASOPHILS # (AUTO) 0.1 10^3/uL (0.0-0.2); ABSOLUTE EOSINOPHILS # (AUTO) 0.5 10^3/uL (0.0-0.6); ABSOLUTE LYMPHOCYTES (AUTO) 2.8 10^3/uL (0.5-4.7); ABSOLUTE MONOCYTES (AUTO) 1.2 10^3/uL (0.1-1.4); ABSOLUTE NEUT (AUTO) 12.6 10^3/uL (1.7-8.2); BASOPHILS % (AUTO) 0.3 % (0-2); EOSINOPHILS % (AUTO) 2.7 % (0-6); HEMATOCRIT 28.3 % (37.9-51.0); HEMOGLOBIN 9.6 g/dL (13.5-17.0); LYMPHOCYTES % (AUTO) 16.5 % (13-45); MEAN CORPUSCULAR HEMOGLOBIN 30.8 pg (27.0-33.4); MEAN CORPUSCULAR HGB CONC 33.9 g/dL (32.0-36.0); MEAN CORPUSCULAR VOLUME 91 fl (80-97); MONOCYTES % (AUTO) 7.2 % (3-13); PLATELET COUNT 352 10^3/uL (150-450); RED BLOOD COUNT 3.12 10^6/uL (4.35-5.55); RED CELL DISTRIBUTION WIDTH 13.6 % (11.5-14.0); SEGMENTED NEUTROPHILS % (AUTO) 73.3 % (42-78); TOTAL CELLS COUNTED % (AUTO) 100 %; WHITE BLOOD COUNT 17.2 10^3/uL (4.0-10.5)
[2017-08-27 07:17] LABS: ANION GAP 8 (5-19); BLOOD UREA NITROGEN 33 mg/dL (7-20); CALCIUM 8.2 mg/dL (8.4-10.2); CARBON DIOXIDE 21 mmol/L (22-30); CHLORIDE 113 mmol/L (98-107); GLUCOSE 92 mg/dL (75-110); POTASSIUM 3.8 mmol/L (3.6-5.0); SODIUM 142.1 mmol/L (137-145)
[2017-08-27] MEDS: DOCUSATE SODIUM 100 MG CAPSULE PO SCH ×2 (09:01→16:21)
[2017-08-27] MEDS: LACTOBACILLUS ACIDOPHILUS 250 MG TAB PO SCH ×2 (09:16→17:20)
[2017-08-27] MEDS: ASCORBIC ACID 500 MG TABLET PO SCH (09:18)
[2017-08-27] MEDS: COLLAGENASE CLOSTRIDIUM HIST. OINT 30 GM TP SCH (09:18)
[2017-08-27] MEDS: CYANOCOBALAMIN (VITAMIN B-12) INJ 1000 MCG/1 ML VIAL IM SCH (09:18)
[2017-08-27] MEDS: PSYLLIUM SEED-SF 5.85 GM PACKET PO SCH ×2 (09:18→17:23)
[2017-08-27] MEDS: CHOLECALCIFEROL (D3) 1,000 UNIT TABLET PO SCH (09:18)
[2017-08-27] MEDS: GABAPENTIN 100 MG CAPSULE PO SCH ×2 (09:18→22:59)
--- NOTE | 2017-08-27 11:20 | PDOC PROGRESS REPORT ---
Subjective Progress Note for:: 08/27/17 Reason For Visit: DECUBITUS ULCERS,RENAL FAILURE,HYPERKALEMIA No complaints; patient enjoying eating; still has rectal drainage tube controlling aggressive diarrhea secondary to C. difficile colitis. Wound VAC in place. Physical Exam Vital Signs: Temp Pulse Resp BP Pulse Ox 97.8 F 93 20 144/43 H 97 08/27/17 08:00 08/27/17 08:00 08/27/17 08:00 08/27/17 08:00 08/27/17 08:00 Intake & Output 08/26/17 08/27/17 08/28/17 06:59 06:59 06:59 Intake Total 2828 3208 Output Total 3550 2750 Balance -722 458 Weight 117.2 kg 113.3 kg General appearance: PRESENT: no acute distress Skin exam: PRESENT: other - Patient rolled on the right lateral decubitus position. Wound VAC and Allevyn dressings were removed. The wound consists of a stage IV sacral decubitus, approximately 6 x 8 cm in width and height. Summary 67% of the wound is granulating pink. There is some nonviable deep subcutaneous tissue along the superior hemisphere of the cavity. No foul smell , tracking, erythema. Perineum is acceptably protected from feces and urine given the presence of Yepez catheter and rectal drain The left posterior thigh wound is stage II. Nothing to debride Results Laboratory Results: 08/27/17 05:31 08/27/17 05:31 08/27/17 08/27/17 05:31 05:31 WBC 17.2 H RBC 3.12 L Hgb 9.6 L Hct 28.3 L MCV 91 MCH 30.8 MCHC 33.9 RDW 13.6 Plt Count 352 Seg Neutrophils % 73.3 Lymphocytes % 16.5 Monocytes % 7.2 Eosinophils % 2.7 Basophils % 0.3 Absolute Neutrophils 12.6 H Absolute Lymphocytes 2.8 Absolute Monocytes 1.2 Absolute Eosinophils 0.5 Absolute Basophils 0.1 Sodium 142.1 Potassium 3.8 Chloride 113 H Carbon Dioxide 21 L Anion Gap 8 BUN 33 H Creatinine 1.61 H Est GFR ( Amer) 49 L Est GFR (Non-Af Amer) 41 L Glucose 92 Calcium 8.2 L Magnesium 1.4 L 08/21/17 03:45 Creatine Kinase 586 H Impressions: Chest X-Ray 08/20/17 23:09 IMPRESSION: No acute cardiopulmonary findings. Abdomen/Pelvis CT 08/20/17 23:35 IMPRESSION: Moderate dilation of the renal collecting system. Differential diagnosis includes bladder outlet obstruction/dysfunction. Cervical Spine CT 08/21/17 00:00 IMPRESSION: CHRONIC DEGENERATIVE CHANGES. NO ACUTE FINDINGS. Head CT 08/21/17 00:00 IMPRESSION: MILD CHRONIC CHANGES OF ATROPHY AND MICROVASCULAR ISCHEMIA. NO ACUTE PROCESS. EVIDENCE OF ACUTE STROKE: NO. Renal Ultrasound 08/21/17 00:00 IMPRESSION: UNREMARKABLE RENAL AND BLADDER ULTRASOUND. HYDRONEPHROSIS SEEN ON RECENT CT HAS IMPROVED. THIS PROBABLY WAS DUE TO DISTENDED BLADDER WHICH HAS RESOLVED WITH PLACEMENT OF YEPEZ CATHETER. Assessment & Plan - Diagnosis (1) Sacral decubitus ulcer, stage IV Is this a current diagnosis for this admission?: Yes Plan: The sacral decubitus ulcer is under control, granulating in, with surrounding skin protected from feces and urine. Other more the proximal inner thigh wound at the crease of the buttock is also clean with nothing to debride Recommendations: 1. Continue local wound care, VAC therapy 2. Patient will follow up with [facility] upon discharge from hospital
[2017-08-27] MEDS ORDERED: ONDANSETRON HCL INJ/PF 4 MG/2 ML SDV IV PRN (15:30)
[2017-08-27] MEDS: TAMSULOSIN HCL 0.4 MG CAP.SR.24H PO SCH (17:23)
--- NOTE | 2017-08-27 19:24 | PDOC PROGRESS REPORT ---
Subjective Progress Note for:: 08/27/17 Subjective:: This is a follow-up visit for C. difficile colitis and acute renal failure. The patient has no complaints today and states that his day is gone well. Reason For Visit: DECUBITUS ULCERS,RENAL FAILURE,HYPERKALEMIA Physical Exam Vital Signs: Temp Pulse Resp BP Pulse Ox 98.1 F 92 16 144/48 H 98 08/27/17 16:00 08/27/17 16:00 08/27/17 16:00 08/27/17 16:00 08/27/17 16:00 Intake & Output 08/26/17 08/27/17 08/28/17 06:59 06:59 06:59 Intake Total 2828 3208 1860 Output Total 3550 2750 Balance -481 377 7359 Weight 117.2 kg 113.3 kg GENERAL: This is a well-developed and nourished appearing white male resting in bed currently in no acute distress. HEART: Regular rate and rhythm. No murmurs, rubs or gallops. LUNGS: Clear to auscultation bilaterally with equal rise and fall of the chest. ABDOMEN: Soft, nontender, nondistended with normoactive bowel sounds : Yepez catheter is in place draining tae colored urine. EXTREMETIES: No clubbing, cyanosis or edema. 2+ peripheral pulses bilaterally. Back: Wound VAC is in place. Rectal: Rectal tube is in place and draining dark green stool. NEURO: Awake, alert. Cranial nerves II through XII are grossly intact. Results Laboratory Results: 08/27/17 05:31 08/27/17 05:31 08/27/17 08/27/17 05:31 05:31 WBC 17.2 H RBC 3.12 L Hgb 9.6 L Hct 28.3 L MCV 91 MCH 30.8 MCHC 33.9 RDW 13.6 Plt Count 352 Seg Neutrophils % 73.3 Lymphocytes % 16.5 Monocytes % 7.2 Eosinophils % 2.7 Basophils % 0.3 Absolute Neutrophils 12.6 H Absolute Lymphocytes 2.8 Absolute Monocytes 1.2 Absolute Eosinophils 0.5 Absolute Basophils 0.1 Sodium 142.1 Potassium 3.8 Chloride 113 H Carbon Dioxide 21 L Anion Gap 8 BUN 33 H Creatinine 1.61 H Est GFR ( Amer) 49 L Est GFR (Non-Af Amer) 41 L Glucose 92 Calcium 8.2 L Magnesium 1.4 L 08/21/17 03:45 Creatine Kinase 586 H Impressions: Chest X-Ray 08/20/17 23:09 IMPRESSION: No acute cardiopulmonary findings. Abdomen/Pelvis CT 08/20/17 23:35 IMPRESSION: Moderate dilation of the renal collecting system. Differential diagnosis includes bladder outlet obstruction/dysfunction. Cervical Spine CT 08/21/17 00:00 IMPRESSION: CHRONIC DEGENERATIVE CHANGES. NO ACUTE FINDINGS. Head CT 08/21/17 00:00 IMPRESSION: MILD CHRONIC CHANGES OF ATROPHY AND MICROVASCULAR ISCHEMIA. NO ACUTE PROCESS. EVIDENCE OF ACUTE STROKE: NO. Renal Ultrasound 08/21/17 00:00 IMPRESSION: UNREMARKABLE RENAL AND BLADDER ULTRASOUND. HYDRONEPHROSIS SEEN ON RECENT CT HAS IMPROVED. THIS PROBABLY WAS DUE TO DISTENDED BLADDER WHICH HAS RESOLVED WITH PLACEMENT OF YEPEZ CATHETER. Assessment & Plan - Diagnosis (1) Acute renal failure Qualifiers: Acute renal failure type: unspecified Qualified Code(s): N17.9 - Acute kidney failure, unspecified Is this a current diagnosis for this admission?: Yes Plan: Much improved after fluids. Continue to monitor. Creatinine is down to 1.6. (2) Anemia Qualifiers: Anemia type: unspecified type Qualified Code(s): D64.9 - Anemia, unspecified Is this a current diagnosis for this admission?: Yes Plan: Anemia of chronic disease. Stable. (3) BPH (benign prostatic hyperplasia) Qualifiers: Lower urinary tract symptom detail: urinary obstruction Is this a current diagnosis for this admission?: Yes (4) C. difficile diarrhea Is this a current diagnosis for this admission?: Yes Plan: Continue vancomycin p.o. (5) Hypokalemia due to loss of potassium Is this a current diagnosis for this admission?: Yes Plan: Replaced and resolved. This was likely secondary to underlying diarrhea. (6) Neuropathy Is this a current diagnosis for this admission?: Yes (7) Sacral decubitus ulcer, stage IV Is this a current diagnosis for this admission?: Yes (8) Bacteremia Is this a current diagnosis for this admission?: Yes Plan: Blood cultures are positive for staph epidermidis in 1 out of 4 bottles. Likely this is a contaminant. Repeat cultures are pending and negative after 3 days. The patient does have a white count that is climbing. I will go ahead and start Rocephin while the repeat cultures are pending. Continue to monitor. Continued caution with too many antibiotics given his current C. difficile. - Time Time Spent with patient: 15-24 minutes
[2017-08-27] MEDS ORDERED: CEFTRIAXONE SODIUM 1,000 MG in NORMAL SALINE 100 ML IV SCH (22:00)
[2017-08-27] MEDS: TEMAZEPAM 7.5 MG CAPSULE PO PRN (23:14)
[2017-08-27] MEDS: TRAMADOL HCL 50 MG TABLET PO PRN (23:14)
[2017-08-28] MEDS: VANCOMYCIN HCL INJ 500 MG VIAL PO SCH ×4 (05:57→22:29)
[2017-08-28] MEDS: LANSOPRAZOLE 15 MG TAB.RAP.DR PO SCH (05:57)
[2017-08-28 06:46] LABS: ABSOLUTE BASOPHILS # (AUTO) 0.2 10^3/uL (0.0-0.2); ABSOLUTE EOSINOPHILS # (AUTO) 0.3 10^3/uL (0.0-0.6); ABSOLUTE LYMPHOCYTES (AUTO) 2.8 10^3/uL (0.5-4.7); ABSOLUTE MONOCYTES (AUTO) 1.5 10^3/uL (0.1-1.4); ABSOLUTE NEUT (AUTO) 13.9 10^3/uL (1.7-8.2); BASOPHILS % (AUTO) 1.1 % (0-2); EOSINOPHILS % (AUTO) 1.8 % (0-6); HEMATOCRIT 29.2 % (37.9-51.0); HEMOGLOBIN 9.5 g/dL (13.5-17.0); LYMPHOCYTES % (AUTO) 14.9 % (13-45); MEAN CORPUSCULAR HEMOGLOBIN 29.5 pg (27.0-33.4); MEAN CORPUSCULAR HGB CONC 32.5 g/dL (32.0-36.0); MEAN CORPUSCULAR VOLUME 91 fl (80-97); PLATELET COUNT 333 10^3/uL (150-450); RED BLOOD COUNT 3.22 10^6/uL (4.35-5.55); RED CELL DISTRIBUTION WIDTH 13.7 % (11.5-14.0); SEGMENTED NEUTROPHILS % (AUTO) 74.2 % (42-78); TOTAL CELLS COUNTED % (AUTO) 100 %; WHITE BLOOD COUNT 18.7 10^3/uL (4.0-10.5)
[2017-08-28 06:59] LABS: ANION GAP 8 (5-19); BLOOD UREA NITROGEN 26 mg/dL (7-20); CALCIUM 8.2 mg/dL (8.4-10.2); CARBON DIOXIDE 22 mmol/L (22-30); CHLORIDE 114 mmol/L (98-107); GLUCOSE 99 mg/dL (75-110); POTASSIUM 3.9 mmol/L (3.6-5.0); SODIUM 144.3 mmol/L (137-145)
[2017-08-28] MEDS ORDERED: CEFTRIAXONE 1 GM/D5W RTU 1 GM/50 ML RTUPB IV SCH (10:00)
[2017-08-28] MEDS: ASCORBIC ACID 500 MG TABLET PO SCH (10:22)
[2017-08-28] MEDS: FENTANYL 12 MCG/HR PATCH.TD72 TD SCH (10:23)
[2017-08-28] MEDS: GABAPENTIN 100 MG CAPSULE PO SCH ×2 (10:23→22:29)
[2017-08-28] MEDS: DOCUSATE SODIUM 100 MG CAPSULE PO SCH ×2 (10:23→16:46)
[2017-08-28] MEDS: CYANOCOBALAMIN (VITAMIN B-12) INJ 1000 MCG/1 ML VIAL IM SCH (10:23)
[2017-08-28] MEDS: CHOLECALCIFEROL (D3) 1,000 UNIT TABLET PO SCH (10:23)
[2017-08-28] MEDS: PSYLLIUM SEED-SF 5.85 GM PACKET PO SCH ×2 (10:24→16:59)
[2017-08-28] MEDS: LACTOBACILLUS ACIDOPHILUS 250 MG TAB PO SCH ×2 (10:24→16:59)
[2017-08-28] MEDS: COLLAGENASE CLOSTRIDIUM HIST. OINT 30 GM TP SCH (10:24)
[2017-08-28] MEDS: NORMAL SALINE 1000 ML 1,000 ML IV PRN (12:33)
--- NOTE | 2017-08-28 16:38 | PDOC PROGRESS REPORT ---
Subjective Progress Note for:: 08/28/17 Subjective:: Pt states that he has no complaints today. Reason For Visit: DECUBITUS ULCERS,RENAL FAILURE,HYPERKALEMIA Physical Exam Vital Signs: Temp Pulse Resp BP Pulse Ox 98.0 F 105 H 20 134/62 H 98 08/28/17 16:00 08/28/17 16:00 08/28/17 16:00 08/28/17 16:00 08/28/17 09:59 Intake & Output 08/27/17 08/28/17 08/29/17 06:59 06:59 06:59 Intake Total 3208 3275 540 Output Total 2750 1400 450 Balance 458 1875 90 Weight 113.3 kg 114.5 kg General appearance: PRESENT: no acute distress, well-developed, well-nourished Head exam: PRESENT: atraumatic, normocephalic Eye exam: PRESENT: conjunctiva pink, EOMI. ABSENT: scleral icterus Ear exam: PRESENT: normal external ear exam Mouth exam: PRESENT: moist Neck exam: ABSENT: carotid bruit, JVD, lymphadenopathy, thyromegaly Respiratory exam: PRESENT: clear to auscultation arash. ABSENT: rales, rhonchi, wheezes Cardiovascular exam: PRESENT: RRR. ABSENT: diastolic murmur, rubs, systolic murmur Pulses: PRESENT: normal dorsalis pedis pul Vascular exam: PRESENT: normal capillary refill GI/Abdominal exam: PRESENT: normal bowel sounds, soft. ABSENT: distended, guarding, mass, organolmegaly, rebound, tenderness Rectal exam: PRESENT: deferred Extremities exam: ABSENT: calf tenderness, clubbing, pedal edema Neurological exam: PRESENT: alert, awake, oriented to person, oriented to place , oriented to time, oriented to situation, CN II-XII grossly intact Psychiatric exam: PRESENT: appropriate affect, normal mood. ABSENT: homicidal ideation, suicidal ideation Skin exam: PRESENT: dry, intact, warm. ABSENT: cyanosis, rash Results Laboratory Results: 08/28/17 06:28 08/28/17 06:28 08/28/17 08/28/17 06:28 06:28 WBC 18.7 H RBC 3.22 L Hgb 9.5 L Hct 29.2 L MCV 91 MCH 29.5 MCHC 32.5 RDW 13.7 Plt Count 333 Seg Neutrophils % 74.2 Lymphocytes % 14.9 Monocytes % 8.0 Eosinophils % 1.8 Basophils % 1.1 Absolute Neutrophils 13.9 H Absolute Lymphocytes 2.8 Absolute Monocytes 1.5 H Absolute Eosinophils 0.3 Absolute Basophils 0.2 Sodium 144.3 Potassium 3.9 Chloride 114 H Carbon Dioxide 22 Anion Gap 8 BUN 26 H Creatinine 1.40 H Est GFR ( Amer) 58 L Est GFR (Non-Af Amer) 48 L Glucose 99 Calcium 8.2 L Magnesium 1.4 L 08/21/17 03:45 Creatine Kinase 586 H Impressions: Chest X-Ray 08/20/17 23:09 IMPRESSION: No acute cardiopulmonary findings. Abdomen/Pelvis CT 08/20/17 23:35 IMPRESSION: Moderate dilation of the renal collecting system. Differential diagnosis includes bladder outlet obstruction/dysfunction. Cervical Spine CT 08/21/17 00:00 IMPRESSION: CHRONIC DEGENERATIVE CHANGES. NO ACUTE FINDINGS. Head CT 08/21/17 00:00 IMPRESSION: MILD CHRONIC CHANGES OF ATROPHY AND MICROVASCULAR ISCHEMIA. NO ACUTE PROCESS. EVIDENCE OF ACUTE STROKE: NO. Renal Ultrasound 08/21/17 00:00 IMPRESSION: UNREMARKABLE RENAL AND BLADDER ULTRASOUND. HYDRONEPHROSIS SEEN ON RECENT CT HAS IMPROVED. THIS PROBABLY WAS DUE TO DISTENDED BLADDER WHICH HAS RESOLVED WITH PLACEMENT OF YEPEZ CATHETER. Assessment & Plan - Diagnosis (1) Debility Is this a current diagnosis for this admission?: Yes Plan: PT/OT evaluation and treatment. (2) Hypomagnesemia Is this a current diagnosis for this admission?: Yes Plan: Will give 2 grams of magnesium replacement. Will check Magnesium in am. (3) Acute hypernatremia Is this a current diagnosis for this admission?: Yes Plan: Resolved. (4) Acute renal failure Qualifiers: Acute renal failure type: unspecified Qualified Code(s): N17.9 - Acute kidney failure, unspecified Is this a current diagnosis for this admission?: Yes Plan: Secondary to Dehydration: Resolving. Will continue IVFs. (5) Anemia Qualifiers: Anemia type: unspecified type Qualified Code(s): D64.9 - Anemia, unspecified Is this a current diagnosis for this admission?: Yes Plan: Most likely of Chronic Disease: Will continue to monitor. Will check iron studies. (6) BPH (benign prostatic hyperplasia) Qualifiers: Lower urinary tract symptom detail: urinary obstruction Is this a current diagnosis for this admission?: Yes Plan: supportive care (7) Bacteremia Is this a current diagnosis for this admission?: Yes Plan: Ruled out: Contaminant. Will discontinue Rocephin. (8) C. difficile diarrhea Is this a current diagnosis for this admission?: Yes Plan: Will continue Vancomycin 500mg PO Q6 hours. Pt with rectal tube in place. Will add flagyl. (9) Hypokalemia due to loss of potassium Is this a current diagnosis for this admission?: Yes Plan: Resolved. (10) Neuropathy Is this a current diagnosis for this admission?: Yes Plan: supportive care (11) Sacral decubitus ulcer, stage IV Is this a current diagnosis for this admission?: Yes Plan: Continue wound care. - Time Time Spent with patient: 25-34 minutes - Spoke to case management about LTAC. Awaiting to hear back
[2017-08-28] MEDS: MAGNESIUM SULFATE/D5W 1 GM/100 ML RTUPB IV SCH ×2 (16:59→18:02)
[2017-08-28] MEDS: TAMSULOSIN HCL 0.4 MG CAP.SR.24H PO SCH (16:59)
--- NOTE | 2017-08-28 19:32 | PDOC PROGRESS REPORT ---
Subjective Progress Note for:: 08/28/17 Subjective:: Patient was laying in bed, he currently is doing well. Denies chest pain, SOB, cough, fevers or chills. According to his nurse he is awaiting placement in a nursing facility. Reason For Visit: DECUBITUS ULCERS,RENAL FAILURE,HYPERKALEMIA Physical Exam Vital Signs: Temp Pulse Resp BP Pulse Ox 98.0 F 105 H 20 134/62 H 98 08/28/17 16:00 08/28/17 16:00 08/28/17 16:00 08/28/17 16:00 08/28/17 09:59 Intake & Output 08/27/17 08/28/17 08/29/17 06:59 06:59 06:59 Intake Total 3208 3275 1740 Output Total 2750 1400 450 Balance 458 1875 1290 Weight 113.3 kg 114.5 kg General appearance: PRESENT: no acute distress, well-developed, well-nourished Mouth exam: PRESENT: moist, neck supple Respiratory exam: PRESENT: clear to auscultation arash. ABSENT: accessory muscle use, crackles, rales, rhonchi, wheezes Cardiovascular exam: PRESENT: RRR, +S1, +S2 GI/Abdominal exam: PRESENT: distended, soft. ABSENT: firm, rebound, rigid, tenderness Extremities exam: ABSENT: pedal edema, tenderness Musculoskeletal exam: PRESENT: normal inspection. ABSENT: tenderness Neurological exam: PRESENT: alert, awake, oriented to person, oriented to place , oriented to time, oriented to situation Psychiatric exam: PRESENT: appropriate affect, normal mood Skin exam: PRESENT: dry, intact, warm Results Laboratory Results: 08/28/17 06:28 08/28/17 06:28 08/28/17 08/28/17 06:28 06:28 WBC 18.7 H RBC 3.22 L Hgb 9.5 L Hct 29.2 L MCV 91 MCH 29.5 MCHC 32.5 RDW 13.7 Plt Count 333 Seg Neutrophils % 74.2 Lymphocytes % 14.9 Monocytes % 8.0 Eosinophils % 1.8 Basophils % 1.1 Absolute Neutrophils 13.9 H Absolute Lymphocytes 2.8 Absolute Monocytes 1.5 H Absolute Eosinophils 0.3 Absolute Basophils 0.2 Sodium 144.3 Potassium 3.9 Chloride 114 H Carbon Dioxide 22 Anion Gap 8 BUN 26 H Creatinine 1.40 H Est GFR ( Amer) 58 L Est GFR (Non-Af Amer) 48 L Glucose 99 Calcium 8.2 L Magnesium 1.4 L 08/21/17 03:45 Creatine Kinase 586 H Impressions: Chest X-Ray 08/20/17 23:09 IMPRESSION: No acute cardiopulmonary findings. Abdomen/Pelvis CT 08/20/17 23:35 IMPRESSION: Moderate dilation of the renal collecting system. Differential diagnosis includes bladder outlet obstruction/dysfunction. Cervical Spine CT 08/21/17 00:00 IMPRESSION: CHRONIC DEGENERATIVE CHANGES. NO ACUTE FINDINGS. Head CT 08/21/17 00:00 IMPRESSION: MILD CHRONIC CHANGES OF ATROPHY AND MICROVASCULAR ISCHEMIA. NO ACUTE PROCESS. EVIDENCE OF ACUTE STROKE: NO. Renal Ultrasound 08/21/17 00:00 IMPRESSION: UNREMARKABLE RENAL AND BLADDER ULTRASOUND. HYDRONEPHROSIS SEEN ON RECENT CT HAS IMPROVED. THIS PROBABLY WAS DUE TO DISTENDED BLADDER WHICH HAS RESOLVED WITH PLACEMENT OF YEPEZ CATHETER. Assessment & Plan - Diagnosis (1) Acute renal failure Qualifiers: Acute renal failure type: unspecified Qualified Code(s): N17.9 - Acute kidney failure, unspecified Is this a current diagnosis for this admission?: Yes Plan: looks to be resolving or resolved, unknown baseline creatinine (2) Hypomagnesemia Is this a current diagnosis for this admission?: Yes Plan: starting on PO mag ox 400mg qd (3) Obstructive uropathy Is this a current diagnosis for this admission?: Yes Plan: improved (4) Sacral decubitus ulcer Qualifiers: Pressure ulcer stage: unspecified pressure ulcer stage Qualified Code(s): L89.159 - Pressure ulcer of sacral region, unspecified stage Is this a current diagnosis for this admission?: Yes Plan: being managed by surgery (5) Weakness Is this a current diagnosis for this admission?: Yes
[2017-08-28] MEDS: METRONIDAZOLE 500 MG/NS RTU 100 ML IV SCH (22:28)
[2017-08-29] MEDS: METRONIDAZOLE 500 MG/NS RTU 100 ML IV SCH ×5 (04:07→23:58)
[2017-08-29] MEDS: VANCOMYCIN HCL INJ 500 MG VIAL PO SCH ×4 (04:08→23:58)
[2017-08-29] MEDS: LANSOPRAZOLE 15 MG TAB.RAP.DR PO SCH (05:36)
[2017-08-29 07:21] LABS: ABSOLUTE BASOPHILS # (AUTO) 0.3 10^3/uL (0.0-0.2); ABSOLUTE EOSINOPHILS # (AUTO) 0.4 10^3/uL (0.0-0.6); ABSOLUTE LYMPHOCYTES (AUTO) 2.7 10^3/uL (0.5-4.7); ABSOLUTE MONOCYTES (AUTO) 1.4 10^3/uL (0.1-1.4); ABSOLUTE NEUT (AUTO) 14.4 10^3/uL (1.7-8.2); BASOPHILS % (AUTO) 1.4 % (0-2); EOSINOPHILS % (AUTO) 2.2 % (0-6); HEMATOCRIT 27.2 % (37.9-51.0); HEMOGLOBIN 8.9 g/dL (13.5-17.0); MEAN CORPUSCULAR HEMOGLOBIN 29.8 pg (27.0-33.4); MEAN CORPUSCULAR HGB CONC 32.7 g/dL (32.0-36.0); MEAN CORPUSCULAR VOLUME 91 fl (80-97); MONOCYTES % (AUTO) 7.6 % (3-13); PLATELET COUNT 366 10^3/uL (150-450); RED BLOOD COUNT 2.99 10^6/uL (4.35-5.55); RED CELL DISTRIBUTION WIDTH 13.5 % (11.5-14.0); SEGMENTED NEUTROPHILS % (AUTO) 74.8 % (42-78); TOTAL CELLS COUNTED % (AUTO) 100 %; WHITE BLOOD COUNT 19.2 10^3/uL (4.0-10.5)
[2017-08-29 07:35] LABS: ALANINE AMINOTRANSFERASE 40 U/L (21-72); ALBUMIN 2.5 g/dL (3.5-5.0); ALKALINE PHOSPHATASE 106 U/L (38-126); ANION GAP 8 (5-19); ASPARTATE AMINO TRANSFERASE 28 U/L (17-59); BILIRUBIN,DIRECT 0.1 mg/dL (0.0-0.4); BILIRUBIN,TOTAL 0.2 mg/dL (0.2-1.3); BLOOD UREA NITROGEN 22 mg/dL (7-20); CALCIUM 8.3 mg/dL (8.4-10.2); CARBON DIOXIDE 23 mmol/L (22-30); CHLORIDE 112 mmol/L (98-107); GLUCOSE 100 mg/dL (75-110); POTASSIUM 3.8 mmol/L (3.6-5.0); SODIUM 142.5 mmol/L (137-145); TOTAL PROTEIN 5.4 g/dL (6.3-8.2)
[2017-08-29 09:16] LABS: ABSOLUTE RETICS # 0.035 10^6/uL (0.028-0.122); RETICULOCYTE COUNT (AUTO) 1.16 % (0.66-2.85)
[2017-08-29 09:33] LABS: FOLATE 4.03 ng/mL (>2.76)
[2017-08-29 09:36] LABS: IRON(TIBC) 19.8 ug/dL (49-181)
[2017-08-29] MEDS: CYANOCOBALAMIN (VITAMIN B-12) INJ 1000 MCG/1 ML VIAL IM SCH (12:56)
[2017-08-29] MEDS: CHOLECALCIFEROL (D3) 1,000 UNIT TABLET PO SCH (12:56)
[2017-08-29] MEDS: ASCORBIC ACID 500 MG TABLET PO SCH (12:57)
[2017-08-29] MEDS: LACTOBACILLUS ACIDOPHILUS 250 MG TAB PO SCH ×2 (13:00→18:00)
[2017-08-29] MEDS: GABAPENTIN 100 MG CAPSULE PO SCH ×2 (13:01→22:06)
[2017-08-29] MEDS: MAGNESIUM OXIDE 400 MG TABLET PO SCH (13:01)
[2017-08-29] MEDS: DOCUSATE SODIUM 100 MG CAPSULE PO SCH ×2 (13:02→18:01)
[2017-08-29] MEDS: PSYLLIUM SEED-SF 5.85 GM PACKET PO SCH ×2 (13:04→17:59)
[2017-08-29] MEDS: NORMAL SALINE 1000 ML 1,000 ML IV PRN (13:06)
[2017-08-29] MEDS: COLLAGENASE CLOSTRIDIUM HIST. OINT 30 GM TP SCH (13:07)
--- NOTE | 2017-08-29 15:58 | PDOC PROGRESS REPORT ---
Subjective Progress Note for:: 08/29/17 Subjective:: No new issues this morning. Reason For Visit: DECUBITUS ULCERS,RENAL FAILURE,HYPERKALEMIA Physical Exam Vital Signs: Temp Pulse Resp BP Pulse Ox 98.1 F 103 H 16 136/53 H 99 08/29/17 12:00 08/29/17 14:00 08/29/17 12:00 08/29/17 12:00 08/29/17 12:00 Intake & Output 08/28/17 08/29/17 08/30/17 06:59 06:59 06:59 Intake Total 3275 2480 Output Total 1400 1750 Balance 1875 730 Weight 114.5 kg 114.2 kg General appearance: PRESENT: no acute distress, well-developed, well-nourished Head exam: PRESENT: atraumatic, normocephalic Eye exam: PRESENT: conjunctiva pink, EOMI. ABSENT: scleral icterus Ear exam: PRESENT: normal external ear exam Mouth exam: PRESENT: moist, tongue midline Neck exam: ABSENT: carotid bruit, JVD, lymphadenopathy, thyromegaly Respiratory exam: PRESENT: clear to auscultation arash. ABSENT: rales, rhonchi, wheezes Cardiovascular exam: PRESENT: RRR. ABSENT: diastolic murmur, rubs, systolic murmur Pulses: PRESENT: normal dorsalis pedis pul Vascular exam: PRESENT: normal capillary refill GI/Abdominal exam: PRESENT: normal bowel sounds, soft, other - fecel tube in place. ABSENT: distended, guarding, mass, organolmegaly, rebound, tenderness Rectal exam: PRESENT: deferred, other - fecal tube in place Extremities exam: PRESENT: full ROM. ABSENT: calf tenderness, clubbing, pedal edema Musculoskeletal exam: PRESENT: full ROM Neurological exam: PRESENT: alert, awake, oriented to person, oriented to place , oriented to time, oriented to situation, CN II-XII grossly intact. ABSENT: motor sensory deficit Psychiatric exam: PRESENT: appropriate affect, normal mood. ABSENT: homicidal ideation, suicidal ideation Skin exam: PRESENT: dry, intact, warm. ABSENT: cyanosis, rash Results Laboratory Results: 08/29/17 06:30 08/29/17 06:30 08/29/17 08/29/17 06:30 06:30 WBC 19.2 H RBC 2.99 L Hgb 8.9 L Hct 27.2 L MCV 91 MCH 29.8 MCHC 32.7 RDW 13.5 Plt Count 366 Seg Neutrophils % 74.8 Lymphocytes % 14.0 Monocytes % 7.6 Eosinophils % 2.2 Basophils % 1.4 Absolute Neutrophils 14.4 H Absolute Lymphocytes 2.7 Absolute Monocytes 1.4 Absolute Eosinophils 0.4 Absolute Basophils 0.3 H Retic Count (auto) 1.16 Absolute Retic 0.035 Sodium 142.5 Potassium 3.8 Chloride 112 H Carbon Dioxide 23 Anion Gap 8 BUN 22 H Creatinine 1.44 H Est GFR ( Amer) 56 L Est GFR (Non-Af Amer) 46 L Glucose 100 Calcium 8.3 L Magnesium 1.7 Iron 19.8 L TIBC 212 L % Saturation 9 Ferritin 482.00 H Total Bilirubin 0.2 AST 28 ALT 40 Alkaline Phosphatase 106 Total Protein 5.4 L Albumin 2.5 L Vitamin B12 > 1000.0 H Folate 4.03 08/21/17 03:45 Creatine Kinase 586 H Impressions: Chest X-Ray 08/20/17 23:09 IMPRESSION: No acute cardiopulmonary findings. Abdomen/Pelvis CT 08/20/17 23:35 IMPRESSION: Moderate dilation of the renal collecting system. Differential diagnosis includes bladder outlet obstruction/dysfunction. Cervical Spine CT 08/21/17 00:00 IMPRESSION: CHRONIC DEGENERATIVE CHANGES. NO ACUTE FINDINGS. Head CT 08/21/17 00:00 IMPRESSION: MILD CHRONIC CHANGES OF ATROPHY AND MICROVASCULAR ISCHEMIA. NO ACUTE PROCESS. EVIDENCE OF ACUTE STROKE: NO. Renal Ultrasound 08/21/17 00:00 IMPRESSION: UNREMARKABLE RENAL AND BLADDER ULTRASOUND. HYDRONEPHROSIS SEEN ON RECENT CT HAS IMPROVED. THIS PROBABLY WAS DUE TO DISTENDED BLADDER WHICH HAS RESOLVED WITH PLACEMENT OF YEPEZ CATHETER. Assessment & Plan - Diagnosis (1) Debility Is this a current diagnosis for this admission?: Yes Plan: PT/OT evaluation and treatment. (2) Hypomagnesemia Is this a current diagnosis for this admission?: Yes Plan: Will give Magnesium 2 grams IV X 1. Will check mg in am (3) Acute hypernatremia Is this a current diagnosis for this admission?: Yes Plan: Resolved. (4) Acute renal failure Qualifiers: Acute renal failure type: unspecified Qualified Code(s): N17.9 - Acute kidney failure, unspecified Is this a current diagnosis for this admission?: Yes Plan: Secondary to Dehydration: Resolving. Will continue IVFs. (5) Anemia Qualifiers: Anemia type: unspecified type Qualified Code(s): D64.9 - Anemia, unspecified Is this a current diagnosis for this admission?: Yes Plan: Most likely of Chronic Disease: Will continue to monitor. Will check iron studies. (6) BPH (benign prostatic hyperplasia) Qualifiers: Lower urinary tract symptom detail: urinary obstruction Is this a current diagnosis for this admission?: Yes Plan: supportive care (7) Bacteremia Is this a current diagnosis for this admission?: Yes Plan: Ruled out: Contaminant. Will discontinue Rocephin. (8) C. difficile diarrhea Is this a current diagnosis for this admission?: Yes Plan: Will continue Vancomycin 500mg PO Q6 hours and flagyl. Pt with rectal tube in place. . (9) Hypokalemia due to loss of potassium Is this a current diagnosis for this admission?: Yes Plan: Resolved. (10) Neuropathy Is this a current diagnosis for this admission?: Yes Plan: supportive care (11) Sacral decubitus ulcer, stage IV Is this a current diagnosis for this admission?: Yes Plan: Continue wound care. - Time Time Spent with patient: 15-24 minutes
[2017-08-29] MEDS ORDERED: MAGNESIUM SULFATE/D5W 1 GM/100 ML RTUPB IV ONE (17:00)
[2017-08-29] MEDS: TAMSULOSIN HCL 0.4 MG CAP.SR.24H PO SCH (18:00)
[2017-08-30] MEDS: VANCOMYCIN HCL INJ 500 MG VIAL PO SCH ×4 (06:04→23:03)
[2017-08-30] MEDS: METRONIDAZOLE 500 MG/NS RTU 100 ML IV SCH ×4 (06:04→23:03)
[2017-08-30] MEDS: LANSOPRAZOLE 15 MG TAB.RAP.DR PO SCH (06:04)
[2017-08-30] MEDS: NORMAL SALINE 1000 ML 1,000 ML IV PRN (07:59)
[2017-08-30 08:08] LABS: ABSOLUTE BASOPHILS # (AUTO) 0.1 10^3/uL (0.0-0.2); ABSOLUTE EOSINOPHILS # (AUTO) 0.3 10^3/uL (0.0-0.6); ABSOLUTE LYMPHOCYTES (AUTO) 2.6 10^3/uL (0.5-4.7); ABSOLUTE MONOCYTES (AUTO) 1.6 10^3/uL (0.1-1.4); ABSOLUTE NEUT (AUTO) 11.4 10^3/uL (1.7-8.2); BASOPHILS % (AUTO) 0.4 % (0-2); HEMATOCRIT 25.1 % (37.9-51.0); HEMOGLOBIN 8.3 g/dL (13.5-17.0); LYMPHOCYTES % (AUTO) 16.2 % (13-45); MEAN CORPUSCULAR HEMOGLOBIN 29.9 pg (27.0-33.4); MEAN CORPUSCULAR HGB CONC 33.1 g/dL (32.0-36.0); MEAN CORPUSCULAR VOLUME 90 fl (80-97); MONOCYTES % (AUTO) 10.1 % (3-13); PLATELET COUNT 387 10^3/uL (150-450); RED BLOOD COUNT 2.78 10^6/uL (4.35-5.55); RED CELL DISTRIBUTION WIDTH 13.6 % (11.5-14.0); SEGMENTED NEUTROPHILS % (AUTO) 71.3 % (42-78); TOTAL CELLS COUNTED % (AUTO) 100 %
[2017-08-30 08:30] LABS: ALANINE AMINOTRANSFERASE 38 U/L (21-72); ALBUMIN 2.3 g/dL (3.5-5.0); ALKALINE PHOSPHATASE 96 U/L (38-126); ANION GAP 8 (5-19); ASPARTATE AMINO TRANSFERASE 22 U/L (17-59); BILIRUBIN,DIRECT 0.1 mg/dL (0.0-0.4); BILIRUBIN,TOTAL 0.2 mg/dL (0.2-1.3); BLOOD UREA NITROGEN 21 mg/dL (7-20); CALCIUM 8.2 mg/dL (8.4-10.2); CARBON DIOXIDE 22 mmol/L (22-30); CHLORIDE 111 mmol/L (98-107); GLUCOSE 91 mg/dL (75-110); POTASSIUM 3.6 mmol/L (3.6-5.0); SODIUM 140.6 mmol/L (137-145); TOTAL PROTEIN 5.2 g/dL (6.3-8.2)
[2017-08-30] MEDS: LACTOBACILLUS ACIDOPHILUS 250 MG TAB PO SCH ×2 (11:01→17:38)
[2017-08-30] MEDS: ASCORBIC ACID 500 MG TABLET PO SCH (11:03)
[2017-08-30] MEDS: CHOLECALCIFEROL (D3) 1,000 UNIT TABLET PO SCH (11:03)
[2017-08-30] MEDS: MAGNESIUM OXIDE 400 MG TABLET PO SCH (11:04)
[2017-08-30] MEDS: PSYLLIUM SEED-SF 5.85 GM PACKET PO SCH ×2 (11:04→17:39)
[2017-08-30] MEDS: GABAPENTIN 100 MG CAPSULE PO SCH ×2 (11:04→23:03)
[2017-08-30] MEDS: COLLAGENASE CLOSTRIDIUM HIST. OINT 30 GM TP SCH (11:05)
[2017-08-30] MEDS: DOCUSATE SODIUM 100 MG CAPSULE PO SCH ×2 (11:06→17:40)
[2017-08-30] MEDS: CYANOCOBALAMIN (VITAMIN B-12) INJ 1000 MCG/1 ML VIAL IM SCH (13:03)
--- NOTE | 2017-08-30 14:42 | PDOC PROGRESS REPORT ---
Subjective Progress Note for:: 08/30/17 Subjective:: Pt states that he is doing better. Nursing states that pt is wheezing. Reason For Visit: DECUBITUS ULCERS,RENAL FAILURE,HYPERKALEMIA Physical Exam Vital Signs: Temp Pulse Resp BP Pulse Ox 98.1 F 99 22 H 125/57 L 97 08/30/17 11:59 08/30/17 11:59 08/30/17 11:59 08/30/17 11:59 08/30/17 11:59 Intake & Output 08/29/17 08/30/17 08/31/17 06:59 06:59 06:59 Intake Total 2480 3020 Output Total 1750 1650 Balance 730 1370 Weight 114.2 kg 112.1 kg General appearance: PRESENT: no acute distress, well-developed, well-nourished Head exam: PRESENT: atraumatic, normocephalic Eye exam: PRESENT: conjunctiva pink, EOMI. ABSENT: scleral icterus Ear exam: PRESENT: normal external ear exam Mouth exam: PRESENT: moist, tongue midline Neck exam: ABSENT: carotid bruit, JVD, lymphadenopathy, thyromegaly Respiratory exam: PRESENT: wheezes, other - diminished at bases.. ABSENT: rales , rhonchi Cardiovascular exam: PRESENT: RRR. ABSENT: diastolic murmur, rubs, systolic murmur Pulses: PRESENT: normal dorsalis pedis pul Vascular exam: PRESENT: normal capillary refill GI/Abdominal exam: PRESENT: normal bowel sounds, tenderness Rectal exam: PRESENT: deferred Extremities exam: ABSENT: calf tenderness, clubbing, pedal edema Neurological exam: PRESENT: alert, awake, oriented to person, oriented to place , oriented to time, oriented to situation, CN II-XII grossly intact. ABSENT: motor sensory deficit Psychiatric exam: PRESENT: appropriate affect, normal mood. ABSENT: homicidal ideation, suicidal ideation Skin exam: PRESENT: dry, intact, warm. ABSENT: cyanosis, rash Results Laboratory Results: 08/30/17 07:56 08/30/17 07:44 08/29/17 08/30/17 08/30/17 06:30 07:44 07:56 WBC 16.0 H RBC 2.78 L Hgb 8.3 L Hct 25.1 L MCV 90 MCH 29.9 MCHC 33.1 RDW 13.6 Plt Count 387 Seg Neutrophils % 71.3 Lymphocytes % 16.2 Monocytes % 10.1 Eosinophils % 2.0 Basophils % 0.4 Absolute Neutrophils 11.4 H Absolute Lymphocytes 2.6 Absolute Monocytes 1.6 H Absolute Eosinophils 0.3 Absolute Basophils 0.1 Sodium 140.6 Potassium 3.6 Chloride 111 H Carbon Dioxide 22 Anion Gap 8 BUN 21 H Creatinine 1.35 H Est GFR ( Amer) > 60 Est GFR (Non-Af Amer) 50 L Glucose 91 Calcium 8.2 L Magnesium 1.9 Transferrin 128 L Total Bilirubin 0.2 AST 22 ALT 38 Alkaline Phosphatase 96 Total Protein 5.2 L Albumin 2.3 L 08/24/17 18:56 Blood Blood Culture - Final NO GROWTH IN 5 DAYS 08/24/17 18:48 Blood Blood Culture - Final NO GROWTH IN 5 DAYS 08/21/17 03:45 Creatine Kinase 586 H Impressions: Chest X-Ray 08/20/17 23:09 IMPRESSION: No acute cardiopulmonary findings. Abdomen/Pelvis CT 08/20/17 23:35 IMPRESSION: Moderate dilation of the renal collecting system. Differential diagnosis includes bladder outlet obstruction/dysfunction. Cervical Spine CT 08/21/17 00:00 IMPRESSION: CHRONIC DEGENERATIVE CHANGES. NO ACUTE FINDINGS. Head CT 08/21/17 00:00 IMPRESSION: MILD CHRONIC CHANGES OF ATROPHY AND MICROVASCULAR ISCHEMIA. NO ACUTE PROCESS. EVIDENCE OF ACUTE STROKE: NO. Renal Ultrasound 08/21/17 00:00 IMPRESSION: UNREMARKABLE RENAL AND BLADDER ULTRASOUND. HYDRONEPHROSIS SEEN ON RECENT CT HAS IMPROVED. THIS PROBABLY WAS DUE TO DISTENDED BLADDER WHICH HAS RESOLVED WITH PLACEMENT OF YEPEZ CATHETER. Assessment & Plan - Diagnosis (1) Debility Is this a current diagnosis for this admission?: Yes Plan: PT/OT evaluation and treatment. (2) Hypomagnesemia Is this a current diagnosis for this admission?: Yes Plan: Resolved. Will continue to monitor. (3) Acute hypernatremia Is this a current diagnosis for this admission?: Yes Plan: Resolved. (4) Acute renal failure Qualifiers: Acute renal failure type: unspecified Qualified Code(s): N17.9 - Acute kidney failure, unspecified Is this a current diagnosis for this admission?: Yes Plan: Secondary to Dehydration: Resolving. Will continue IVFs. (5) Anemia Qualifiers: Anemia type: unspecified type Qualified Code(s): D64.9 - Anemia, unspecified Is this a current diagnosis for this admission?: Yes Plan: Most likely of Chronic Disease: Will give Venofer for [address] on PO Iron replacement. (6) BPH (benign prostatic hyperplasia) Qualifiers: Lower urinary tract symptom detail: urinary obstruction Is this a current diagnosis for this admission?: Yes Plan: supportive care (7) Bacteremia Is this a current diagnosis for this admission?: Yes Plan: Ruled out: Contaminant. Will discontinue Rocephin. (8) C. difficile diarrhea Is this a current diagnosis for this admission?: Yes Plan: Will continue Vancomycin 500mg PO Q6 hours and flagyl. Pt with rectal tube in place. . (9) Hypokalemia due to loss of potassium Is this a current diagnosis for this admission?: Yes Plan: Resolved. (10) Neuropathy Is this a current diagnosis for this admission?: Yes Plan: supportive care (11) Sacral decubitus ulcer, stage IV Is this a current diagnosis for this admission?: Yes Plan: Continue wound care. (12) Wheezing Is this a current diagnosis for this admission?: Yes Plan: Etiology unclear: Will check CXR. Will place on breathing treatments. (13) Left shoulder pain Qualifiers: Chronicity: unspecified Qualified Code(s): M25.512 - Pain in left shoulder Is this a current diagnosis for this admission?: Yes Plan: Will order XRays of Left shoulder. Will consult Ortho. - Time Time Spent with patient: 25-34 minutes
[2017-08-30] MEDS ORDERED: IPRATROPIUM/ALBUTEROL 0.5-2.5 MG/3 ML AMPUL NEB ONE (15:30)
--- NOTE | 2017-08-30 15:57 | RADIOLOGY REPORT (SQ) ---
EXAM DESCRIPTION: SHOULDER LEFT 2 OR MORE VIEWS COMPLETED DATE/TIME: 08/30/2017 3:38 pm REASON FOR STUDY: Left shoulder pain COMPARISON: None. NUMBER OF VIEWS: Three views. TECHNIQUE: Internal rotation, external rotation, and Y view images acquired of the left shoulder. LIMITATIONS: None. FINDINGS: MINERALIZATION: Osteoporotic BONES: No acute fracture or dislocation. No worrisome bone lesions. JOINTS: No left glenohumeral joint malalignment. No AC joint widening. VISUALIZED LUNGS AND RIBS: No pneumothorax. No rib fracture. SOFT TISSUES: Mild calcific tendinopathy over the rotator cuff distal attachments OTHER: No other significant finding. IMPRESSION: No acute fracture or malalignment TECHNICAL DOCUMENTATION: JOB ID: [id number] [employer]- All Rights Reserved
[2017-08-30] MEDS: TAMSULOSIN HCL 0.4 MG CAP.SR.24H PO SCH (17:38)
[2017-08-30] MEDS: IPRATROPIUM/ALBUTEROL 0.5-2.5 MG/3 ML AMPUL NEB SCH (20:10)
[2017-08-31] MEDS: LANSOPRAZOLE 15 MG TAB.RAP.DR PO SCH (05:21)
[2017-08-31] MEDS: VANCOMYCIN HCL INJ 500 MG VIAL PO SCH (05:21)
[2017-08-31] MEDS: METRONIDAZOLE 500 MG/NS RTU 100 ML IV SCH ×4 (05:21→23:58)
[2017-08-31 06:16] LABS: ABSOLUTE BASOPHILS # (AUTO) 0.2 10^3/uL (0.0-0.2); ABSOLUTE EOSINOPHILS # (AUTO) 0.2 10^3/uL (0.0-0.6); ABSOLUTE LYMPHOCYTES (AUTO) 2.8 10^3/uL (0.5-4.7); ABSOLUTE MONOCYTES (AUTO) 1.8 10^3/uL (0.1-1.4); ABSOLUTE NEUT (AUTO) 11.7 10^3/uL (1.7-8.2); EOSINOPHILS % (AUTO) 0.9 % (0-6); HEMATOCRIT 25.5 % (37.9-51.0); HEMOGLOBIN 8.5 g/dL (13.5-17.0); LYMPHOCYTES % (AUTO) 17.1 % (13-45); MEAN CORPUSCULAR HEMOGLOBIN 29.9 pg (27.0-33.4); MEAN CORPUSCULAR HGB CONC 33.1 g/dL (32.0-36.0); MEAN CORPUSCULAR VOLUME 91 fl (80-97); MONOCYTES % (AUTO) 10.6 % (3-13); PLATELET COUNT 404 10^3/uL (150-450); RED BLOOD COUNT 2.82 10^6/uL (4.35-5.55); RED CELL DISTRIBUTION WIDTH 13.5 % (11.5-14.0); SEGMENTED NEUTROPHILS % (AUTO) 70.4 % (42-78); TOTAL CELLS COUNTED % (AUTO) 100 %; WHITE BLOOD COUNT 16.6 10^3/uL (4.0-10.5)
[2017-08-31 06:30] LABS: ALANINE AMINOTRANSFERASE 35 U/L (21-72); ALBUMIN 2.3 g/dL (3.5-5.0); ALKALINE PHOSPHATASE 91 U/L (38-126); ANION GAP 11 (5-19); ASPARTATE AMINO TRANSFERASE 19 U/L (17-59); BILIRUBIN,DIRECT 0.1 mg/dL (0.0-0.4); BILIRUBIN,TOTAL 0.2 mg/dL (0.2-1.3); BLOOD UREA NITROGEN 21 mg/dL (7-20); CARBON DIOXIDE 20 mmol/L (22-30); CHLORIDE 110 mmol/L (98-107); GLUCOSE 86 mg/dL (75-110); POTASSIUM 3.7 mmol/L (3.6-5.0); SODIUM 140.8 mmol/L (137-145); TOTAL PROTEIN 5.3 g/dL (6.3-8.2)
[2017-08-31] MEDS: IPRATROPIUM/ALBUTEROL 0.5-2.5 MG/3 ML AMPUL NEB SCH ×3 (08:17→20:07)
[2017-08-31] MEDS: LACTOBACILLUS ACIDOPHILUS 250 MG TAB PO SCH ×2 (10:36→17:39)
[2017-08-31] MEDS: MAGNESIUM OXIDE 400 MG TABLET PO SCH (10:37)
[2017-08-31] MEDS: GABAPENTIN 100 MG CAPSULE PO SCH ×2 (10:37→21:15)
[2017-08-31] MEDS: CHOLECALCIFEROL (D3) 1,000 UNIT TABLET PO SCH (10:37)
[2017-08-31] MEDS: ASCORBIC ACID 500 MG TABLET PO SCH (10:37)
[2017-08-31] MEDS: FENTANYL 12 MCG/HR PATCH.TD72 TD SCH (10:38)
[2017-08-31] MEDS: CYANOCOBALAMIN (VITAMIN B-12) INJ 1000 MCG/1 ML VIAL IM SCH (10:39)
[2017-08-31] MEDS: IRON SUCROSE COMPLEX INJ/PF 100 MG/5 ML SDV IV SCH (10:39)
[2017-08-31] MEDS: PSYLLIUM SEED-SF 5.85 GM PACKET PO SCH ×2 (10:42→16:50)
[2017-08-31] MEDS: DOCUSATE SODIUM 100 MG CAPSULE PO SCH ×2 (10:42→16:52)
--- NOTE | 2017-08-31 14:19 | PDOC PROGRESS REPORT ---
Subjective Progress Note for:: 08/31/17 Subjective:: Nursing reports the patient's stool is more formed. Pt's rectal tube came out yesterday. Reason For Visit: DECUBITUS ULCERS,RENAL FAILURE,HYPERKALEMIA Physical Exam Vital Signs: Temp Pulse Resp BP Pulse Ox 99.2 F 103 H 18 129/52 H 98 08/31/17 11:52 08/31/17 11:52 08/31/17 11:52 08/31/17 11:52 08/31/17 11:52 Intake & Output 08/30/17 08/31/17 09/01/17 06:59 06:59 06:59 Intake Total 3020 3200 Output Total 1650 1460 Balance 1370 1740 Weight 112.1 kg 112.3 kg General appearance: PRESENT: no acute distress, well-developed, well-nourished Head exam: PRESENT: atraumatic, normocephalic Eye exam: PRESENT: conjunctiva pink, EOMI. ABSENT: scleral icterus Ear exam: PRESENT: normal external ear exam Mouth exam: PRESENT: moist, tongue midline Neck exam: ABSENT: carotid bruit, JVD, lymphadenopathy, thyromegaly Respiratory exam: PRESENT: clear to auscultation arash. ABSENT: rales, rhonchi, wheezes Cardiovascular exam: PRESENT: RRR. ABSENT: diastolic murmur, rubs, systolic murmur Pulses: PRESENT: normal dorsalis pedis pul Vascular exam: PRESENT: normal capillary refill GI/Abdominal exam: PRESENT: normal bowel sounds, soft. ABSENT: distended, guarding, mass, organolmegaly, rebound, tenderness Rectal exam: PRESENT: deferred Extremities exam: PRESENT: full ROM, pedal edema, +1 edema - Upper and lower extremity. ABSENT: calf tenderness, clubbing Neurological exam: PRESENT: alert, awake, oriented to person, oriented to place , oriented to time, oriented to situation, CN II-XII grossly intact. ABSENT: motor sensory deficit Psychiatric exam: PRESENT: appropriate affect, normal mood. ABSENT: homicidal ideation, suicidal ideation Skin exam: PRESENT: dry, intact, warm. ABSENT: cyanosis, rash Results Laboratory Results: 08/31/17 05:07 08/31/17 05:07 08/31/17 08/31/17 05:07 05:07 WBC 16.6 H RBC 2.82 L Hgb 8.5 L Hct 25.5 L MCV 91 MCH 29.9 MCHC 33.1 RDW 13.5 Plt Count 404 Seg Neutrophils % 70.4 Lymphocytes % 17.1 Monocytes % 10.6 Eosinophils % 0.9 Basophils % 1.0 Absolute Neutrophils 11.7 H Absolute Lymphocytes 2.8 Absolute Monocytes 1.8 H Absolute Eosinophils 0.2 Absolute Basophils 0.2 Sodium 140.8 Potassium 3.7 Chloride 110 H Carbon Dioxide 20 L Anion Gap 11 BUN 21 H Creatinine 1.42 H Est GFR ( Amer) 57 L Est GFR (Non-Af Amer) 47 L Glucose 86 Calcium 8.0 L Magnesium 1.7 Total Bilirubin 0.2 AST 19 ALT 35 Alkaline Phosphatase 91 Total Protein 5.3 L Albumin 2.3 L 08/21/17 03:45 Creatine Kinase 586 H Impressions: Chest X-Ray 08/20/17 23:09 IMPRESSION: No acute cardiopulmonary findings. Abdomen/Pelvis CT 08/20/17 23:35 IMPRESSION: Moderate dilation of the renal collecting system. Differential diagnosis includes bladder outlet obstruction/dysfunction. Cervical Spine CT 08/21/17 00:00 IMPRESSION: CHRONIC DEGENERATIVE CHANGES. NO ACUTE FINDINGS. Head CT 08/21/17 00:00 IMPRESSION: MILD CHRONIC CHANGES OF ATROPHY AND MICROVASCULAR ISCHEMIA. NO ACUTE PROCESS. EVIDENCE OF ACUTE STROKE: NO. Renal Ultrasound 08/21/17 00:00 IMPRESSION: UNREMARKABLE RENAL AND BLADDER ULTRASOUND. HYDRONEPHROSIS SEEN ON RECENT CT HAS IMPROVED. THIS PROBABLY WAS DUE TO DISTENDED BLADDER WHICH HAS RESOLVED WITH PLACEMENT OF YEPEZ CATHETER. Shoulder X-Ray 08/30/17 00:00 IMPRESSION: No acute fracture or malalignment Assessment & Plan - Diagnosis (1) Debility Is this a current diagnosis for this admission?: Yes Plan: PT/OT evaluation and treatment. (2) Hypomagnesemia Is this a current diagnosis for this admission?: Yes Plan: We will give 2 g of magnesium and check mag level in a.m. (3) Acute hypernatremia Is this a current diagnosis for this admission?: Yes Plan: Resolved. (4) Acute renal failure Qualifiers: Acute renal failure type: unspecified Qualified Code(s): N17.9 - Acute kidney failure, unspecified Is this a current diagnosis for this admission?: Yes Plan: Secondary to Dehydration: Resolving. Will continue IVFs. (5) Anemia Qualifiers: Anemia type: unspecified type Qualified Code(s): D64.9 - Anemia, unspecified Is this a current diagnosis for this admission?: Yes Plan: Most likely of Chronic Disease: Will give Venofer for 2/[address] on PO Iron replacement. (6) BPH (benign prostatic hyperplasia) Qualifiers: Lower urinary tract symptom detail: urinary obstruction Is this a current diagnosis for this admission?: Yes Plan: supportive care (7) Bacteremia Is this a current diagnosis for this admission?: Yes Plan: Ruled out: Contaminant. Will discontinue Rocephin. (8) C. difficile diarrhea Is this a current diagnosis for this admission?: Yes Plan: Will continue Vancomycin 500mg PO Q6 hours and flagyl. Stool is becoming more solid. Patient's white blood cell count is currently 16,000, trending downward (9) Hypokalemia due to loss of potassium Is this a current diagnosis for this admission?: Yes Plan: Resolved. (10) Neuropathy Is this a current diagnosis for this admission?: Yes Plan: supportive care (11) Sacral decubitus ulcer, stage IV Is this a current diagnosis for this admission?: Yes Plan: Continue wound care. (12) Wheezing Is this a current diagnosis for this admission?: Yes Plan: Etiology unclear: We will continue breathing treatments. Patient states that he has noticed that he has wheezing episodes at home for several months but has not been diagnosed with asthma. Patient states that he has never smoked. (13) Left shoulder pain Qualifiers: Chronicity: unspecified Qualified Code(s): M25.512 - Pain in left shoulder Is this a current diagnosis for this admission?: Yes Plan: X-rays have not demonstrated any evidence of fractures. Will recommend PT OT at this time. - Time Time Spent with patient: 15-24 minutes - Waiting for placement
[2017-08-31] MEDS: MAGNESIUM SULFATE/D5W 1 GM/100 ML RTUPB IV SCH ×2 (14:49→16:11)
[2017-08-31] MEDS: COLLAGENASE CLOSTRIDIUM HIST. OINT 30 GM TP SCH (14:54)
--- NOTE | 2017-08-31 15:51 | PDOC CONSULTATION ---
History of Present Illness Admission Date/PCP: 08/21/17 02:24 Patient complains of: Left shoulder pain History of Present Illness: 87-year-old gentleman admitted for medical issues complaining of left shoulder pain. Pain with trying to elevate the arm above his head. Pain is been going on for several weeks now. Pain is with a overhead activities and sleeping on the shoulder. Denies any numbness or tingling or paresthesias. Has trouble putting on his close endurance his hair and dressing second the pain. He was no previous injuries or surgeries. Scribed the pain anterior and lateral aspect radiating down the arm but not past the elbow. The pain is acute and motion and achy when resting. Past Medical History Cardiac Medical History: Reports: Hyperlipidema, Hypertension Denies: None, Atrial Fibrillation, Congestive Heart Failure, Coronary Artery Disease, DVT, Myocardial Infarction, Peripheral Vascular Disease, Pulmonary Embolism, Heart Murmur, Other Endocrine Medical History: Denies: None, Diabetes Mellitus Type 1, Diabetes Mellitus Type 2, Gestational Diabetes, Hyperthyroidism, Hypothyroidism, Obesity, Other Renal/ Medical History: Reports: Other - BPH Malignancy Medical History: Denies: None, Bone Cancer, Brain Cancer, Breast Cancer, Cervical Cancer, Colorectal Cancer, Leukemia, Liver Cancer, Lung Cancer, Lymphoma, Ovarian Cancer , Pancreatic Cancer, Renal (Kidney) Cancer, Skin Cancer, Other GI Medical History: Denies: None, Cirrhosis, Crohn's Disease, Diverticulitis, Gastroesophageal Reflux Disease, Hepatitis, Hiatal Hernia, Peptic Ulcer Disease, Ulcerative Colitis, Other Musculoskeltal Medical History: Reports: Arthritis Skin Medical History: Denies: None, Eczema, Psoriasis, Other Psychiatric Medical History: Denies: None, Alcohol Dependency, Attention Deficit Hyperactivity Disorder, Bipolar Disorder, Dementia, Depression, General Anxiety Disorder, Personality Disorder, Post Traumatic Stress Disorder, Schizoaffective Disorder, Substance Abuse, Tobacco Dependency, Other Hematology: Reports: Anemia Infectious Medical History: Denies: None, Clostridium Difficile, Hepatitis B, Hepatitis C, HIV, Methicillin-Resistant Staph Aureus, Vancomycin-Resistant Enterococci, Other Past Surgical History Past Surgical History: Reports: Appendectomy Social History Smoking Status: Never Smoker Hx Recreational Drug Use: No Hx Prescription Drug Abuse: No - Advance Directive Resuscitation Status: Full Code Family History Family History: denies: None, Reviewed & Not Pertinent, Arthritis, CAD, COPD, CVA, DM, Hyperlipidemia, Hypertension, Malignancy, Thyroid Disfunction, Other Parental Family History Reviewed: No Children Family History Reviewed: No Sibling(s) Family History Reviewed.: No Medication/Allergy Home Medications: Aspirin [Ecotrin 81 mg EC Tablet] 81 mg PO DAILY 08/21/17 Atorvastatin Calcium [Lipitor 40 mg Tablet] 40 mg PO QHS 08/21/17 Cholecalciferol (Vitamin D3) [Vitamin D3] 1,000 unit PO DAILY 08/21/17 Docusate Calcium [Stool Softener] 240 mg PO DAILY 08/21/17 Finasteride [Proscar 5 mg Tablet] 5 mg PO DAILY 08/21/17 Furosemide [Lasix 20 mg Tablet] 20 mg PO DAILY 08/21/17 Hydrocodone/Acetaminophen [Hydrocodone-Acetamin 5-325 mg] 1 tab PO Q12HP PRN Lisinopril [Prinivil 40 mg Tablet] 40 mg PO DAILY 08/21/17 Melatonin [Melatonin 3 mg Tablet] 3 mg PO QHS 08/21/17 Multivitamin [Tab-A-Allen (Multiple Vitamin) Tablet] 1 tab PO DAILY 08/21/17 Nifedipine [Nifedipine ER] 60 mg PO DAILY 08/21/17 Tamsulosin HCl [Flomax 0.4 mg Cap.sr] 0.4 mg PO DAILY 08/21/17 Temazepam [Restoril 15 mg Capsule] 15 mg PO QHS 08/21/17 Tolterodine Tartrate [Tolterodine Tartrate ER] 4 mg PO DAILY 08/21/17 Tramadol HCl [Ultram 50 mg Tablet] 50 mg PO Q6HP PRN 08/21/17 Allergies/Adverse Reactions: No Known Allergies Allergy (Unverified 08/20/17 17:35) Review of Systems Constitutional: ABSENT: fever(s), weight loss Eyes: ABSENT: visual disturbances Ears: ABSENT: hearing changes Gastrointestinal: ABSENT: diarrhea, vomiting Genitourinary: PRESENT: dysuria. ABSENT: difficulty urinating, hematuria Musculoskeletal: PRESENT: as per HPI. ABSENT: deformity, dislocation, joint swelling Neurological: ABSENT: abnormal speech, paresthesias Psychiatric: ABSENT: homidical ideation, suicidal ideation Endocrine: ABSENT: cold intolerance, heat intolerance Hematologic/Lymphatic: ABSENT: lymphadenopathy Allergic/Immunologic: ABSENT: seasonal rhinorrhea Physical Exam Vital Signs: Temp Pulse Resp BP Pulse Ox 37.3 C 60 16 129/52 H 96 08/31/17 11:52 08/31/17 14:19 08/31/17 14:19 08/31/17 11:52 08/31/17 14:19 Intake & Output 08/30/17 08/31/17 09/01/17 06:59 06:59 06:59 Intake Total 3020 3200 Output Total 1650 1460 Balance 1370 1740 Weight 112.1 kg 112.3 kg General appearance: PRESENT: no acute distress Head exam: PRESENT: atraumatic, normocephalic Eye exam: PRESENT: EOMI, other - Symmetric pupils. ABSENT: conjunctival injection Ear exam: PRESENT: normal external ear exam Mouth exam: PRESENT: neck supple Neck exam: ABSENT: lymphadenopathy, thyromegaly Respiratory exam: PRESENT: symmetrical, unlabored. ABSENT: accessory muscle use , tachypnea Cardiovascular exam: PRESENT: RRR Pulses: PRESENT: normal radial pulses Vascular exam: PRESENT: normal capillary refill GI/Abdominal exam: PRESENT: soft. ABSENT: distended, tenderness Musculoskeletal exam: ABSENT: deformity, dislocation Neurological exam: PRESENT: alert, awake, oriented to person, oriented to place , oriented to time, oriented to situation Psychiatric exam: PRESENT: appropriate affect, normal mood Skin exam: PRESENT: intact. ABSENT: abrasion, erythema, rash Adult Front & Back Image: 1 - Left shoulder exam shows patient has positive empty can. Positive O' Uzair. Positive Aburto test. Positive Neer test. Tender palpation of the lateral cuff and lateral aspect of the greater tuberosity. No crepitus. Pain past 90 passively or actively. Good sensation to light touch distally with 5 out of 5 motor distally. Results Laboratory Results: 08/31/17 05:07 08/31/17 05:07 08/31/17 08/31/17 05:07 05:07 WBC 16.6 H RBC 2.82 L Hgb 8.5 L Hct 25.5 L MCV 91 MCH 29.9 MCHC 33.1 RDW 13.5 Plt Count 404 Seg Neutrophils % 70.4 Lymphocytes % 17.1 Monocytes % 10.6 Eosinophils % 0.9 Basophils % 1.0 Absolute Neutrophils 11.7 H Absolute Lymphocytes 2.8 Absolute Monocytes 1.8 H Absolute Eosinophils 0.2 Absolute Basophils 0.2 Sodium 140.8 Potassium 3.7 Chloride 110 H Carbon Dioxide 20 L Anion Gap 11 BUN 21 H Creatinine 1.42 H Est GFR ( Amer) 57 L Est GFR (Non-Af Amer) 47 L Glucose 86 Calcium 8.0 L Magnesium 1.7 Total Bilirubin 0.2 AST 19 ALT 35 Alkaline Phosphatase 91 Total Protein 5.3 L Albumin 2.3 L 08/21/17 03:45 Creatine Kinase 586 H Impressions: Chest X-Ray 08/20/17 23:09 IMPRESSION: No acute cardiopulmonary findings. Abdomen/Pelvis CT 08/20/17 23:35 IMPRESSION: Moderate dilation of the renal collecting system. Differential diagnosis includes bladder outlet obstruction/dysfunction. Cervical Spine CT 08/21/17 00:00 IMPRESSION: CHRONIC DEGENERATIVE CHANGES. NO ACUTE FINDINGS. Head CT 08/21/17 00:00 IMPRESSION: MILD CHRONIC CHANGES OF ATROPHY AND MICROVASCULAR ISCHEMIA. NO ACUTE PROCESS. EVIDENCE OF ACUTE STROKE: NO. Renal Ultrasound 08/21/17 00:00 IMPRESSION: UNREMARKABLE RENAL AND BLADDER ULTRASOUND. HYDRONEPHROSIS SEEN ON RECENT CT HAS IMPROVED. THIS PROBABLY WAS DUE TO DISTENDED BLADDER WHICH HAS RESOLVED WITH PLACEMENT OF YEPEZ CATHETER. Shoulder X-Ray 08/30/17 00:00 IMPRESSION: No acute fracture or malalignment Status: Image reviewed by me Assessment & Plan - Diagnosis (1) Bursitis of left shoulder Is this a current diagnosis for this admission?: Yes Plan: 87-year-old gentleman admitted for medical issues complaining of left shoulder pain. I believe the patient has a likelihood of bursitis or tendinitis of the left shoulder. Differential diagnosis could be rotator cuff tear. At this point this can be treated as an outpatient and patient can follow-up in office once discharged. The meantime I agree with physical therapy to work on range of motion exercises. May be a candidate for a injection in the office.
[2017-08-31] MEDS: TAMSULOSIN HCL 0.4 MG CAP.SR.24H PO SCH (17:40)
[2017-08-31] MEDS: NORMAL SALINE 1000 ML 1,000 ML IV PRN (22:31)
[2017-09-01] MEDS: LANSOPRAZOLE 15 MG TAB.RAP.DR PO SCH (05:32)
[2017-09-01] MEDS: METRONIDAZOLE 500 MG/NS RTU 100 ML IV SCH ×3 (05:32→17:35)
[2017-09-01 06:47] LABS: ABSOLUTE EOSINOPHILS # (AUTO) 0.2 10^3/uL (0.0-0.6); ABSOLUTE LYMPHOCYTES (AUTO) 2.6 10^3/uL (0.5-4.7); ABSOLUTE MONOCYTES (AUTO) 1.7 10^3/uL (0.1-1.4); ABSOLUTE NEUT (AUTO) 9.7 10^3/uL (1.7-8.2); BASOPHILS % (AUTO) 0.2 % (0-2); EOSINOPHILS % (AUTO) 1.5 % (0-6); HEMATOCRIT 25.1 % (37.9-51.0); HEMOGLOBIN 8.4 g/dL (13.5-17.0); LYMPHOCYTES % (AUTO) 18.1 % (13-45); MEAN CORPUSCULAR HEMOGLOBIN 30.2 pg (27.0-33.4); MEAN CORPUSCULAR HGB CONC 33.4 g/dL (32.0-36.0); MEAN CORPUSCULAR VOLUME 90 fl (80-97); PLATELET COUNT 335 10^3/uL (150-450); RED BLOOD COUNT 2.78 10^6/uL (4.35-5.55); RED CELL DISTRIBUTION WIDTH 13.5 % (11.5-14.0); SEGMENTED NEUTROPHILS % (AUTO) 68.2 % (42-78); TOTAL CELLS COUNTED % (AUTO) 100 %; WHITE BLOOD COUNT 14.3 10^3/uL (4.0-10.5)
[2017-09-01 07:31] LABS: ANION GAP 12 (5-19); BLOOD UREA NITROGEN 21 mg/dL (7-20); CALCIUM 8.2 mg/dL (8.4-10.2); CARBON DIOXIDE 20 mmol/L (22-30); CHLORIDE 109 mmol/L (98-107); GLUCOSE 94 mg/dL (75-110); POTASSIUM 3.6 mmol/L (3.6-5.0); SODIUM 140.9 mmol/L (137-145)
[2017-09-01] MEDS: IPRATROPIUM/ALBUTEROL 0.5-2.5 MG/3 ML AMPUL NEB SCH ×3 (08:07→20:23)
[2017-09-01] MEDS: CYANOCOBALAMIN (VITAMIN B-12) INJ 1000 MCG/1 ML VIAL IM SCH (09:55)
[2017-09-01] MEDS: ASCORBIC ACID 500 MG TABLET PO SCH (09:55)
[2017-09-01] MEDS: MAGNESIUM OXIDE 400 MG TABLET PO SCH (09:55)
[2017-09-01] MEDS: CHOLECALCIFEROL (D3) 1,000 UNIT TABLET PO SCH (09:55)
[2017-09-01] MEDS: GABAPENTIN 100 MG CAPSULE PO SCH ×2 (09:55→21:10)
[2017-09-01] MEDS: IRON SUCROSE COMPLEX INJ/PF 100 MG/5 ML SDV IV SCH (09:56)
[2017-09-01] MEDS: COLLAGENASE CLOSTRIDIUM HIST. OINT 30 GM TP SCH (09:57)
[2017-09-01] MEDS: LACTOBACILLUS ACIDOPHILUS 250 MG TAB PO SCH ×2 (10:00→17:34)
[2017-09-01] MEDS: DOCUSATE SODIUM 100 MG CAPSULE PO SCH ×3 (10:01→18:00)
[2017-09-01] MEDS: PSYLLIUM SEED-SF 5.85 GM PACKET PO SCH ×3 (10:01→18:00)
[2017-09-01] MEDS ORDERED: FENTANYL 12 MCG/HR PATCH.TD72 TD ONE (12:00)
--- NOTE | 2017-09-01 13:02 | PDOC PROGRESS REPORT ---
Subjective Progress Note for:: 09/01/17 Subjective:: No new issues. Reason For Visit: DECUBITUS ULCERS,RENAL FAILURE,HYPERKALEMIA Physical Exam Vital Signs: Temp Pulse Resp BP Pulse Ox 98.2 F 81 16 145/57 H 99 09/01/17 11:57 09/01/17 11:57 09/01/17 11:57 09/01/17 11:57 09/01/17 11:57 Intake & Output 08/31/17 09/01/17 09/02/17 06:59 06:59 06:59 Intake Total 3200 2180 Output Total 1460 2260 Balance 1740 -80 Weight 112.3 kg 115.1 kg General appearance: PRESENT: no acute distress, well-developed, well-nourished Head exam: PRESENT: atraumatic, normocephalic Eye exam: PRESENT: conjunctiva pink, EOMI. ABSENT: scleral icterus Ear exam: PRESENT: normal external ear exam Mouth exam: PRESENT: moist, tongue midline Neck exam: ABSENT: carotid bruit, JVD, lymphadenopathy, thyromegaly Respiratory exam: PRESENT: clear to auscultation arash. ABSENT: rales, rhonchi, wheezes Cardiovascular exam: PRESENT: RRR. ABSENT: diastolic murmur, rubs, systolic murmur Pulses: PRESENT: normal dorsalis pedis pul Vascular exam: PRESENT: normal capillary refill GI/Abdominal exam: PRESENT: normal bowel sounds, soft. ABSENT: distended, guarding, mass, organolmegaly, rebound, tenderness Rectal exam: PRESENT: deferred Extremities exam: PRESENT: full ROM. ABSENT: calf tenderness, clubbing, pedal edema Musculoskeletal exam: PRESENT: full ROM Neurological exam: PRESENT: alert, awake, oriented to person, oriented to place , oriented to time, oriented to situation, CN II-XII grossly intact. ABSENT: motor sensory deficit Psychiatric exam: PRESENT: appropriate affect, normal mood. ABSENT: homicidal ideation, suicidal ideation Skin exam: PRESENT: dry, intact, warm, other - Patient was sacral wound with wound VAC in place. ABSENT: cyanosis, rash Results Laboratory Results: 09/01/17 06:21 09/01/17 06:21 09/01/17 09/01/17 06:21 06:21 WBC 14.3 H RBC 2.78 L Hgb 8.4 L Hct 25.1 L MCV 90 MCH 30.2 MCHC 33.4 RDW 13.5 Plt Count 335 Seg Neutrophils % 68.2 Lymphocytes % 18.1 Monocytes % 12.0 Eosinophils % 1.5 Basophils % 0.2 Absolute Neutrophils 9.7 H Absolute Lymphocytes 2.6 Absolute Monocytes 1.7 H Absolute Eosinophils 0.2 Absolute Basophils 0.0 Sodium 140.9 Potassium 3.6 Chloride 109 H Carbon Dioxide 20 L Anion Gap 12 BUN 21 H Creatinine 1.33 H Est GFR ( Amer) > 60 Est GFR (Non-Af Amer) 51 L Glucose 94 Calcium 8.2 L Magnesium 2.2 08/21/17 03:45 Creatine Kinase 586 H Impressions: Chest X-Ray 08/20/17 23:09 IMPRESSION: No acute cardiopulmonary findings. Abdomen/Pelvis CT 08/20/17 23:35 IMPRESSION: Moderate dilation of the renal collecting system. Differential diagnosis includes bladder outlet obstruction/dysfunction. Cervical Spine CT 08/21/17 00:00 IMPRESSION: CHRONIC DEGENERATIVE CHANGES. NO ACUTE FINDINGS. Head CT 08/21/17 00:00 IMPRESSION: MILD CHRONIC CHANGES OF ATROPHY AND MICROVASCULAR ISCHEMIA. NO ACUTE PROCESS. EVIDENCE OF ACUTE STROKE: NO. Renal Ultrasound 08/21/17 00:00 IMPRESSION: UNREMARKABLE RENAL AND BLADDER ULTRASOUND. HYDRONEPHROSIS SEEN ON RECENT CT HAS IMPROVED. THIS PROBABLY WAS DUE TO DISTENDED BLADDER WHICH HAS RESOLVED WITH PLACEMENT OF YEPEZ CATHETER. Shoulder X-Ray 08/30/17 00:00 IMPRESSION: No acute fracture or malalignment Assessment & Plan - Diagnosis (1) Debility Is this a current diagnosis for this admission?: Yes Plan: PT/OT evaluation and treatment. (2) Hypomagnesemia Is this a current diagnosis for this admission?: Yes Plan: Resolved. (3) Acute hypernatremia Is this a current diagnosis for this admission?: Yes Plan: Resolved. (4) Acute renal failure Qualifiers: Acute renal failure type: unspecified Qualified Code(s): N17.9 - Acute kidney failure, unspecified Is this a current diagnosis for this admission?: Yes Plan: Secondary to Dehydration: Resolved will discontinue IV fluids. (5) Anemia Qualifiers: Anemia type: unspecified type Qualified Code(s): D64.9 - Anemia, unspecified Is this a current diagnosis for this admission?: Yes Plan: Most likely of Chronic Disease: Will give Venofer for 3/[address] on PO Iron replacement. (6) BPH (benign prostatic hyperplasia) Qualifiers: Lower urinary tract symptom detail: urinary obstruction Is this a current diagnosis for this admission?: Yes Plan: supportive care (7) Bacteremia Is this a current diagnosis for this admission?: Yes Plan: Ruled out: Contaminant. Will discontinue Rocephin. (8) C. difficile diarrhea Is this a current diagnosis for this admission?: Yes Plan: Will continue Vancomycin 500mg PO Q6 hours and flagyl. Patient stools becoming more formed. Patient's fecal management system has come out. Have asked her surgery to reevaluate patient due to stool contaminating open wound. (9) Hypokalemia due to loss of potassium Is this a current diagnosis for this admission?: Yes Plan: Resolved. (10) Neuropathy Is this a current diagnosis for this admission?: Yes Plan: supportive care (11) Sacral decubitus ulcer, stage IV Is this a current diagnosis for this admission?: Yes Plan: Continue wound care. (12) Wheezing Is this a current diagnosis for this admission?: Yes Plan: Etiology unclear: We will continue breathing treatments. Patient states that he has noticed that he has wheezing episodes at home for several months but has not been diagnosed with asthma. Patient states that he has never smoked. (13) Bursitis of left shoulder Is this a current diagnosis for this admission?: Yes Plan: Physicial Therapy for now. - Time Time Spent with patient: 15-24 minutes
--- NOTE | 2017-09-01 17:13 | CONSULTATION REPORT E ---
Consultation Report NAME: JOVAN PUENTE : 1930 AGE: 87Y DATE: 433 A TO: RICKY ORR M.D. FROM: BARBI MACKENZIE M.D. Requesting Physician CHIEF COMPLAINT: Consideration for colostomy. REPORT OF CONSULTATION: Patient is an 87-year-old male, full code, hospitalized for 2 weeks at [facility] for failure to thrive, and sepsis. He was admitted with acute renal failure, secondary obstructive uropathy. Please see his hospital course, which has involved pulmonary support, renal support, now tolerating a diet. He is bed-ridden. He has a wound VAC for stage 4 sacral decubitus and has had a rectal drain in place intermittently. Apparently, the rectal drainage device has not been functional and surgery is consulted for consideration of fecal diversion. Complete past medical and surgical history can be found in the history and physical document. He does have a history of bursitis, chronic pain syndrome, Clostridium difficile currently being treated. Patient is a full code. SOCIAL HISTORY: Patient does not smoke. PAST SURGICAL HISTORY: Significant for appendectomy only. FAMILY HISTORY: Noncontributory. MEDICATIONS: Medications can be found in his record. REVIEW OF SYSTEMS: As per HPI. PHYSICAL EXAM: Patient examined in [facility] 4th floor. VITAL SIGNS: Stable. GENERAL: Patient is awake, alert, and oriented x3. EXTREMITIES: Unable to move his extremities very well. Patient is bed-ridden. GENITOURINARY: With patient in the right lateral decubitus position, wound VAC in position, the perineum is reasonably clean without cellulitic changes. LABORATORY PROFILE: White blood cell count 14,300, hemoglobin of 8.4, and electrolytes show a bicarb of 20. BUN and creatinine of 21 and 1.33. IMPRESSION: A debilitated 87-year-old male with multiple chronic comorbidities now with intermittent fecal contamination of perineum complicating stage IV sacral 4 pressure wound healing with wound VAC. RECOMMENDATIONS: 1. Consider re-initiation of a rectal drainage system. 2. I spoke to the patient about the role of fecal diversion. Specifically, I addressed a colostomy with him, and he is not interested in that at this time. I told him to think it over, and we would be willing to discuss it further with him. 3. Please re-consult surgery if patient is inclined to agree to a diverting colostomy; in the interim, consider the rectal drainage tube. DICTATING PHYSICIAN: RICKY ORR M.D. [id number] PHY#: [id number] ID: [id number] JOB#: [id number] ACCT: [id number] cc:RICKY ORR M.D. >
[2017-09-01] MEDS: TAMSULOSIN HCL 0.4 MG CAP.SR.24H PO SCH (17:35)
[2017-09-01] MEDS: VANCOMYCIN HCL INJ 500 MG VIAL PO SCH (17:41)
[2017-09-01] MEDS ORDERED: ASPIRIN 325 MG TABLET, ENT COATED PO ONE (19:45)
[2017-09-01] MEDS ORDERED: METOPROLOL TARTRATE 25 MG TABLET PO ONE (19:45)
[2017-09-02] MEDS: METRONIDAZOLE 500 MG/NS RTU 100 ML IV SCH ×4 (00:19→17:04)
[2017-09-02] MEDS: VANCOMYCIN HCL INJ 500 MG VIAL PO SCH ×4 (00:19→17:04)
[2017-09-02 05:16] LABS: ABSOLUTE BASOPHILS # (AUTO) 0.1 10^3/uL (0.0-0.2); ABSOLUTE EOSINOPHILS # (AUTO) 0.2 10^3/uL (0.0-0.6); ABSOLUTE LYMPHOCYTES (AUTO) 2.3 10^3/uL (0.5-4.7); ABSOLUTE MONOCYTES (AUTO) 1.5 10^3/uL (0.1-1.4); ABSOLUTE NEUT (AUTO) 10.7 10^3/uL (1.7-8.2); BASOPHILS % (AUTO) 0.8 % (0-2); EOSINOPHILS % (AUTO) 1.3 % (0-6); HEMOGLOBIN 8.2 g/dL (13.5-17.0); LYMPHOCYTES % (AUTO) 15.7 % (13-45); MEAN CORPUSCULAR HEMOGLOBIN 30.5 pg (27.0-33.4); MEAN CORPUSCULAR VOLUME 90 fl (80-97); MONOCYTES % (AUTO) 10.2 % (3-13); PLATELET COUNT 394 10^3/uL (150-450); RED BLOOD COUNT 2.68 10^6/uL (4.35-5.55); RED CELL DISTRIBUTION WIDTH 13.7 % (11.5-14.0); TOTAL CELLS COUNTED % (AUTO) 100 %; WHITE BLOOD COUNT 14.9 10^3/uL (4.0-10.5)
[2017-09-02 05:46] LABS: ALANINE AMINOTRANSFERASE 23 U/L (21-72); ALBUMIN 2.3 g/dL (3.5-5.0); ALKALINE PHOSPHATASE 92 U/L (38-126); ANION GAP 11 (5-19); ASPARTATE AMINO TRANSFERASE 15 U/L (17-59); BILIRUBIN,DIRECT 0.1 mg/dL (0.0-0.4); BILIRUBIN,TOTAL 0.1 mg/dL (0.2-1.3); BLOOD UREA NITROGEN 19 mg/dL (7-20); CALCIUM 8.1 mg/dL (8.4-10.2); CARBON DIOXIDE 21 mmol/L (22-30); CHLORIDE 108 mmol/L (98-107); GLUCOSE 103 mg/dL (75-110); POTASSIUM 3.7 mmol/L (3.6-5.0); SODIUM 140.1 mmol/L (137-145); TOTAL PROTEIN 5.4 g/dL (6.3-8.2)
[2017-09-02] MEDS: LANSOPRAZOLE 15 MG TAB.RAP.DR PO SCH (06:19)
[2017-09-02] MEDS: IPRATROPIUM/ALBUTEROL 0.5-2.5 MG/3 ML AMPUL NEB SCH ×3 (08:11→20:17)
[2017-09-02] MEDS: CYANOCOBALAMIN (VITAMIN B-12) INJ 1000 MCG/1 ML VIAL IM SCH (09:22)
[2017-09-02] MEDS: IRON SUCROSE COMPLEX INJ/PF 100 MG/5 ML SDV IV SCH (09:22)
[2017-09-02] MEDS: GABAPENTIN 100 MG CAPSULE PO SCH ×2 (09:23→21:20)
[2017-09-02] MEDS: LACTOBACILLUS ACIDOPHILUS 250 MG TAB PO SCH ×2 (09:24→17:03)
[2017-09-02] MEDS: METOPROLOL TARTRATE 25 MG TABLET PO SCH ×2 (09:24→21:20)
[2017-09-02] MEDS: MAGNESIUM OXIDE 400 MG TABLET PO SCH (09:24)
[2017-09-02] MEDS: CHOLECALCIFEROL (D3) 1,000 UNIT TABLET PO SCH (09:24)
[2017-09-02] MEDS: ASCORBIC ACID 500 MG TABLET PO SCH (09:24)
[2017-09-02] MEDS: COLLAGENASE CLOSTRIDIUM HIST. OINT 30 GM TP SCH (09:25)
[2017-09-02] MEDS: PSYLLIUM SEED-SF 5.85 GM PACKET PO SCH ×2 (09:38→15:16)
[2017-09-02] MEDS: DOCUSATE SODIUM 100 MG CAPSULE PO SCH ×2 (09:38→15:16)
--- NOTE | 2017-09-02 14:25 | PDOC PROGRESS REPORT ---
Subjective Progress Note for:: 09/02/17 Subjective:: Received call from Dr. Huang who states that patient reports that he has to think about having a diverting procedure done to keep stool out of sacral/ coccyx wound. This morning patient states that he has to think about having surgery. Reason For Visit: DECUBITUS ULCERS,RENAL FAILURE,HYPERKALEMIA Physical Exam Vital Signs: Temp Pulse Resp BP Pulse Ox 98.5 F 79 20 122/60 97 09/02/17 12:15 09/02/17 12:15 09/02/17 12:15 09/02/17 12:15 09/02/17 12:15 Intake & Output 09/01/17 09/02/17 09/03/17 06:59 06:59 06:59 Intake Total 2180 2425 Output Total 2260 2350 Balance -80 75 Weight 115.1 kg 115.8 kg General appearance: PRESENT: no acute distress, well-developed, well-nourished Head exam: PRESENT: atraumatic, normocephalic Eye exam: PRESENT: conjunctiva pink, EOMI. ABSENT: scleral icterus Ear exam: PRESENT: normal external ear exam Mouth exam: PRESENT: moist, tongue midline Neck exam: ABSENT: carotid bruit, JVD, lymphadenopathy, thyromegaly Respiratory exam: PRESENT: clear to auscultation raash. ABSENT: rales, rhonchi, wheezes Cardiovascular exam: PRESENT: irregular rhythm Pulses: PRESENT: normal dorsalis pedis pul Vascular exam: PRESENT: normal capillary refill GI/Abdominal exam: PRESENT: normal bowel sounds, soft. ABSENT: distended, guarding, mass, organolmegaly, rebound, tenderness Rectal exam: PRESENT: deferred Extremities exam: ABSENT: calf tenderness, clubbing, pedal edema Neurological exam: PRESENT: alert, awake, oriented to person, oriented to place , oriented to time, oriented to situation, CN II-XII grossly intact. ABSENT: motor sensory deficit Psychiatric exam: PRESENT: appropriate affect, normal mood. ABSENT: homicidal ideation, suicidal ideation Skin exam: PRESENT: dry, intact, warm, other - Patient with sacral/coccyx wound with wound VAC in place.. ABSENT: cyanosis, rash Results Laboratory Results: 09/02/17 04:43 09/02/17 04:43 09/02/17 09/02/17 04:43 04:43 WBC 14.9 H RBC 2.68 L Hgb 8.2 L Hct 24.0 L MCV 90 MCH 30.5 MCHC 34.0 RDW 13.7 Plt Count 394 Seg Neutrophils % 72.0 Lymphocytes % 15.7 Monocytes % 10.2 Eosinophils % 1.3 Basophils % 0.8 Absolute Neutrophils 10.7 H Absolute Lymphocytes 2.3 Absolute Monocytes 1.5 H Absolute Eosinophils 0.2 Absolute Basophils 0.1 Sodium 140.1 Potassium 3.7 Chloride 108 H Carbon Dioxide 21 L Anion Gap 11 BUN 19 Creatinine 1.32 H Est GFR ( Amer) > 60 Est GFR (Non-Af Amer) 51 L Glucose 103 Calcium 8.1 L Magnesium 2.0 Total Bilirubin 0.1 L AST 15 L ALT 23 Alkaline Phosphatase 92 Total Protein 5.4 L Albumin 2.3 L 08/21/17 03:45 Creatine Kinase 586 H Impressions: Chest X-Ray 08/20/17 23:09 IMPRESSION: No acute cardiopulmonary findings. Abdomen/Pelvis CT 08/20/17 23:35 IMPRESSION: Moderate dilation of the renal collecting system. Differential diagnosis includes bladder outlet obstruction/dysfunction. Cervical Spine CT 08/21/17 00:00 IMPRESSION: CHRONIC DEGENERATIVE CHANGES. NO ACUTE FINDINGS. Head CT 08/21/17 00:00 IMPRESSION: MILD CHRONIC CHANGES OF ATROPHY AND MICROVASCULAR ISCHEMIA. NO ACUTE PROCESS. EVIDENCE OF ACUTE STROKE: NO. Renal Ultrasound 08/21/17 00:00 IMPRESSION: UNREMARKABLE RENAL AND BLADDER ULTRASOUND. HYDRONEPHROSIS SEEN ON RECENT CT HAS IMPROVED. THIS PROBABLY WAS DUE TO DISTENDED BLADDER WHICH HAS RESOLVED WITH PLACEMENT OF YEPEZ CATHETER. Shoulder X-Ray 08/30/17 00:00 IMPRESSION: No acute fracture or malalignment Assessment & Plan - Diagnosis (1) Debility Is this a current diagnosis for this admission?: Yes Plan: PT/OT evaluation and treatment. (2) Hypomagnesemia Is this a current diagnosis for this admission?: Yes Plan: Resolved. (3) Acute hypernatremia Is this a current diagnosis for this admission?: Yes Plan: Resolved. (4) Acute renal failure Qualifiers: Acute renal failure type: unspecified Qualified Code(s): N17.9 - Acute kidney failure, unspecified Is this a current diagnosis for this admission?: Yes Plan: Secondary to Dehydration: Resolved. (5) Anemia Qualifiers: Anemia type: unspecified type Qualified Code(s): D64.9 - Anemia, unspecified Is this a current diagnosis for this admission?: Yes Plan: Most likely of Chronic Disease: Will give Venofer for 4/[address] on PO Iron replacement. (6) BPH (benign prostatic hyperplasia) Qualifiers: Lower urinary tract symptom detail: urinary obstruction Is this a current diagnosis for this admission?: Yes Plan: supportive care (7) Bacteremia Is this a current diagnosis for this admission?: Yes Plan: Ruled out: Contaminant. Will discontinue Rocephin. (8) C. difficile diarrhea Is this a current diagnosis for this admission?: Yes Plan: Will continue Vancomycin 500mg PO Q6 hours and flagyl. Patient stools becoming more formed. Patient's fecal management system has come out. Pt states that he has to think about diverting procedure to help promote healing. (9) Hypokalemia due to loss of potassium Is this a current diagnosis for this admission?: Yes Plan: Resolved. (10) Neuropathy Is this a current diagnosis for this admission?: Yes Plan: supportive care (11) Sacral decubitus ulcer, stage IV Is this a current diagnosis for this admission?: Yes Plan: Continue wound care. (12) Wheezing Is this a current diagnosis for this admission?: Yes Plan: Etiology unclear: We will continue breathing treatments. Patient states that he has noticed that he has wheezing episodes at home for several months but has not been diagnosed with asthma. Patient states that he has never smoked. (13) Bursitis of left shoulder Is this a current diagnosis for this admission?: Yes Plan: Physicial Therapy for now. (14) Atrial fibrillation Qualifiers: Atrial fibrillation type: chronic Qualified Code(s): I48.2 - Chronic atrial fibrillation Is this a current diagnosis for this admission?: No Plan: Continue metoprolol and aspirin. Patient high risk for falls. - Time Time Spent with patient: 15-24 minutes
--- NOTE | 2017-09-02 16:07 | EKG REPORT ---
SEVERITY:- ABNORMAL ECG - SINUS RHYTHM WITH PACS WITH FIRT DEGREE AVB. BORDERLINE R WAVE PROGRESSION, ANTERIOR LEADS OLD ANTERIOR NC : Confirmed by: Dalton Templeton MD 02-Sep-2017 16:06:23
[2017-09-02] MEDS ORDERED: ASPIRIN 325 MG TABLET PO ONE (16:15)
[2017-09-02] MEDS: TAMSULOSIN HCL 0.4 MG CAP.SR.24H PO SCH (17:04)
[2017-09-03] MEDS: VANCOMYCIN HCL INJ 500 MG VIAL PO SCH ×5 (00:18→23:55)
[2017-09-03] MEDS: METRONIDAZOLE 500 MG/NS RTU 100 ML IV SCH ×5 (00:18→23:55)
[2017-09-03 05:11] LABS: ABSOLUTE EOSINOPHILS # (AUTO) 0.3 10^3/uL (0.0-0.6); ABSOLUTE LYMPHOCYTES (AUTO) 2.1 10^3/uL (0.5-4.7); ABSOLUTE MONOCYTES (AUTO) 1.3 10^3/uL (0.1-1.4); ABSOLUTE NEUT (AUTO) 9.5 10^3/uL (1.7-8.2); BASOPHILS % (AUTO) 0.3 % (0-2); EOSINOPHILS % (AUTO) 2.6 % (0-6); HEMATOCRIT 24.5 % (37.9-51.0); HEMOGLOBIN 8.1 g/dL (13.5-17.0); LYMPHOCYTES % (AUTO) 15.8 % (13-45); MEAN CORPUSCULAR HEMOGLOBIN 29.6 pg (27.0-33.4); MEAN CORPUSCULAR VOLUME 90 fl (80-97); MONOCYTES % (AUTO) 9.6 % (3-13); PLATELET COUNT 415 10^3/uL (150-450); RED BLOOD COUNT 2.72 10^6/uL (4.35-5.55); RED CELL DISTRIBUTION WIDTH 13.4 % (11.5-14.0); SEGMENTED NEUTROPHILS % (AUTO) 71.7 % (42-78); TOTAL CELLS COUNTED % (AUTO) 100 %; WHITE BLOOD COUNT 13.2 10^3/uL (4.0-10.5)
[2017-09-03 05:37] LABS: ALANINE AMINOTRANSFERASE 26 U/L (21-72); ALBUMIN 2.3 g/dL (3.5-5.0); ALKALINE PHOSPHATASE 92 U/L (38-126); ANION GAP 8 (5-19); ASPARTATE AMINO TRANSFERASE 14 U/L (17-59); BLOOD UREA NITROGEN 20 mg/dL (7-20); CARBON DIOXIDE 23 mmol/L (22-30); CHLORIDE 108 mmol/L (98-107); GLUCOSE 94 mg/dL (75-110); POTASSIUM 3.6 mmol/L (3.6-5.0); SODIUM 138.9 mmol/L (137-145); TOTAL PROTEIN 5.4 g/dL (6.3-8.2)
[2017-09-03] MEDS: LANSOPRAZOLE 15 MG TAB.RAP.DR PO SCH (05:48)
[2017-09-03 05:50] LABS: BILIRUBIN,TOTAL < 0.1 mg/dL (0.2-1.3)
[2017-09-03] MEDS: IPRATROPIUM/ALBUTEROL 0.5-2.5 MG/3 ML AMPUL NEB SCH (08:00)
[2017-09-03] MEDS: ASCORBIC ACID 500 MG TABLET PO SCH (10:23)
[2017-09-03] MEDS: METOPROLOL TARTRATE 25 MG TABLET PO SCH ×2 (10:23→21:21)
[2017-09-03] MEDS: CHOLECALCIFEROL (D3) 1,000 UNIT TABLET PO SCH (10:23)
[2017-09-03] MEDS: MAGNESIUM OXIDE 400 MG TABLET PO SCH (10:23)
[2017-09-03] MEDS: IRON SUCROSE COMPLEX INJ/PF 100 MG/5 ML SDV IV SCH (10:23)
[2017-09-03] MEDS: GABAPENTIN 100 MG CAPSULE PO SCH ×2 (10:23→21:21)
[2017-09-03] MEDS: FENTANYL 12 MCG/HR PATCH.TD72 TD SCH (10:23)
[2017-09-03] MEDS: CYANOCOBALAMIN (VITAMIN B-12) INJ 1000 MCG/1 ML VIAL IM SCH (10:23)
[2017-09-03] MEDS: ASPIRIN 325 MG TABLET PO SCH (10:23)
[2017-09-03] MEDS: LACTOBACILLUS ACIDOPHILUS 250 MG TAB PO SCH ×2 (10:23→19:04)
--- NOTE | 2017-09-03 11:27 | PDOC PROGRESS REPORT ---
Subjective Progress Note for:: 09/03/17 Subjective:: Nursing states that she will speak with surgery again. Nursing states that wound VAC is having to be changed 7 times a day due to patient stooling into wound. Patient states that he still has not made a decision as to whether to have a diverting procedure to keep him from stooling into the sacral coccyx wound. Reason For Visit: DECUBITUS ULCERS,RENAL FAILURE,HYPERKALEMIA Physical Exam Vital Signs: Temp Pulse Resp BP Pulse Ox 98.1 F 80 14 118/49 L 96 09/03/17 07:34 09/03/17 08:00 09/03/17 08:00 09/03/17 07:34 09/03/17 07:34 Intake & Output 09/02/17 09/03/17 09/04/17 06:59 06:59 06:59 Intake Total 2425 1160 Output Total 2350 800 Balance 75 360 Weight 115.8 kg 115.5 kg General appearance: PRESENT: no acute distress, well-developed, well-nourished Head exam: PRESENT: atraumatic, normocephalic Eye exam: PRESENT: conjunctiva pink, EOMI. ABSENT: scleral icterus Ear exam: PRESENT: normal external ear exam Mouth exam: PRESENT: moist, tongue midline Neck exam: ABSENT: carotid bruit, JVD, lymphadenopathy, thyromegaly Respiratory exam: PRESENT: clear to auscultation arash. ABSENT: rales, rhonchi, wheezes Cardiovascular exam: PRESENT: RRR. ABSENT: diastolic murmur, rubs, systolic murmur Pulses: PRESENT: normal dorsalis pedis pul Vascular exam: PRESENT: normal capillary refill GI/Abdominal exam: PRESENT: normal bowel sounds, soft. ABSENT: distended, guarding, mass, organolmegaly, rebound, tenderness Rectal exam: PRESENT: deferred Extremities exam: ABSENT: calf tenderness, clubbing, pedal edema Neurological exam: PRESENT: alert, awake, oriented to person, oriented to place , oriented to time, oriented to situation, CN II-XII grossly intact. ABSENT: motor sensory deficit Psychiatric exam: PRESENT: appropriate affect, normal mood. ABSENT: homicidal ideation, suicidal ideation Skin exam: PRESENT: other - Large sacral wound with wound vac in place. Results Laboratory Results: 09/03/17 04:28 09/03/17 04:28 09/03/17 09/03/17 04:28 04:28 WBC 13.2 H RBC 2.72 L Hgb 8.1 L Hct 24.5 L MCV 90 MCH 29.6 MCHC 33.0 RDW 13.4 Plt Count 415 Seg Neutrophils % 71.7 Lymphocytes % 15.8 Monocytes % 9.6 Eosinophils % 2.6 Basophils % 0.3 Absolute Neutrophils 9.5 H Absolute Lymphocytes 2.1 Absolute Monocytes 1.3 Absolute Eosinophils 0.3 Absolute Basophils 0.0 Sodium 138.9 Potassium 3.6 Chloride 108 H Carbon Dioxide 23 Anion Gap 8 BUN 20 Creatinine 1.30 H Est GFR ( Amer) > 60 Est GFR (Non-Af Amer) 52 L Glucose 94 Calcium 8.0 L Magnesium 2.0 Total Bilirubin < 0.1 L AST 14 L ALT 26 Alkaline Phosphatase 92 Total Protein 5.4 L Albumin 2.3 L 08/21/17 03:45 Creatine Kinase 586 H Impressions: Chest X-Ray 08/20/17 23:09 IMPRESSION: No acute cardiopulmonary findings. Abdomen/Pelvis CT 08/20/17 23:35 IMPRESSION: Moderate dilation of the renal collecting system. Differential diagnosis includes bladder outlet obstruction/dysfunction. Cervical Spine CT 08/21/17 00:00 IMPRESSION: CHRONIC DEGENERATIVE CHANGES. NO ACUTE FINDINGS. Head CT 08/21/17 00:00 IMPRESSION: MILD CHRONIC CHANGES OF ATROPHY AND MICROVASCULAR ISCHEMIA. NO ACUTE PROCESS. EVIDENCE OF ACUTE STROKE: NO. Renal Ultrasound 08/21/17 00:00 IMPRESSION: UNREMARKABLE RENAL AND BLADDER ULTRASOUND. HYDRONEPHROSIS SEEN ON RECENT CT HAS IMPROVED. THIS PROBABLY WAS DUE TO DISTENDED BLADDER WHICH HAS RESOLVED WITH PLACEMENT OF YEPEZ CATHETER. Shoulder X-Ray 08/30/17 00:00 IMPRESSION: No acute fracture or malalignment Assessment & Plan - Diagnosis (1) Debility Is this a current diagnosis for this admission?: Yes Plan: PT/OT evaluation and treatment. (2) Hypomagnesemia Is this a current diagnosis for this admission?: Yes Plan: Resolved. (3) Acute hypernatremia Is this a current diagnosis for this admission?: Yes Plan: Resolved. (4) Acute renal failure Qualifiers: Acute renal failure type: unspecified Qualified Code(s): N17.9 - Acute kidney failure, unspecified Is this a current diagnosis for this admission?: Yes Plan: Secondary to Dehydration: Resolved. (5) Anemia Qualifiers: Anemia type: unspecified type Qualified Code(s): D64.9 - Anemia, unspecified Is this a current diagnosis for this admission?: Yes Plan: Most likely of Chronic Disease: Will place on PO Iron replacement. (6) BPH (benign prostatic hyperplasia) Qualifiers: Lower urinary tract symptom detail: urinary obstruction Is this a current diagnosis for this admission?: Yes Plan: supportive care (7) Bacteremia Is this a current diagnosis for this admission?: Yes Plan: Ruled out: Contaminant. Will discontinue Rocephin. (8) C. difficile diarrhea Is this a current diagnosis for this admission?: Yes Plan: Will continue Vancomycin 500mg PO Q6 hours and flagyl. Patient stools becoming more formed. (9) Hypokalemia due to loss of potassium Is this a current diagnosis for this admission?: Yes Plan: Resolved. (10) Neuropathy Is this a current diagnosis for this admission?: Yes Plan: supportive care (11) Sacral decubitus ulcer, stage IV Is this a current diagnosis for this admission?: Yes Plan: Continue wound care. (12) Wheezing Is this a current diagnosis for this admission?: Yes Plan: Etiology unclear: We will place patient on as needed breathing treatments. Will place patient on Pulmicort. Patient will need to follow-up with pulmonary as outpatient for Formal lung function test. (13) Bursitis of left shoulder Is this a current diagnosis for this admission?: Yes Plan: Physicial Therapy . (14) Atrial fibrillation Qualifiers: Atrial fibrillation type: chronic Qualified Code(s): I48.2 - Chronic atrial fibrillation Is this a current diagnosis for this admission?: No Plan: Continue metoprolol and aspirin. Patient high risk for falls. (15) DVT prophylaxis Is this a current diagnosis for this admission?: Yes Plan: SCDs - Time Time Spent with patient: 15-24 minutes
[2017-09-03] MEDS: COLLAGENASE CLOSTRIDIUM HIST. OINT 30 GM TP SCH (11:41)
--- NOTE | 2017-09-03 14:11 | PDOC PROGRESS REPORT ---
Subjective Progress Note for:: 09/03/17 Subjective:: Patient continue to have diarrhea. He denies fevers or chills. He denies chest pain, SOB, nausea, vomiting. Reason For Visit: DECUBITUS ULCERS,RENAL FAILURE,HYPERKALEMIA Physical Exam Vital Signs: Temp Pulse Resp BP Pulse Ox 98.1 F 80 14 118/49 L 96 09/03/17 07:34 09/03/17 08:00 09/03/17 08:00 09/03/17 07:34 09/03/17 07:34 Intake & Output 09/02/17 09/03/17 09/04/17 06:59 06:59 06:59 Intake Total 2425 1160 Output Total 2350 800 Balance 75 360 Weight 115.8 kg 115.5 kg General appearance: PRESENT: no acute distress, well-developed, well-nourished Neck exam: PRESENT: full ROM. ABSENT: JVD Respiratory exam: PRESENT: accessory muscle use, clear to auscultation arash. ABSENT: crackles, rales, rhonchi, wheezes Cardiovascular exam: PRESENT: RRR, +S1, +S2 GI/Abdominal exam: PRESENT: distended, soft. ABSENT: firm, rebound, rigid, tenderness Extremities exam: PRESENT: pedal edema - -trace+. ABSENT: tenderness Musculoskeletal exam: PRESENT: normal inspection. ABSENT: tenderness Neurological exam: PRESENT: alert, awake, oriented to person, oriented to place , oriented to time, oriented to situation Skin exam: PRESENT: dry, rash, warm. ABSENT: intact Results Laboratory Results: 09/03/17 04:28 09/03/17 04:28 09/03/17 09/03/17 04:28 04:28 WBC 13.2 H RBC 2.72 L Hgb 8.1 L Hct 24.5 L MCV 90 MCH 29.6 MCHC 33.0 RDW 13.4 Plt Count 415 Seg Neutrophils % 71.7 Lymphocytes % 15.8 Monocytes % 9.6 Eosinophils % 2.6 Basophils % 0.3 Absolute Neutrophils 9.5 H Absolute Lymphocytes 2.1 Absolute Monocytes 1.3 Absolute Eosinophils 0.3 Absolute Basophils 0.0 Sodium 138.9 Potassium 3.6 Chloride 108 H Carbon Dioxide 23 Anion Gap 8 BUN 20 Creatinine 1.30 H Est GFR ( Amer) > 60 Est GFR (Non-Af Amer) 52 L Glucose 94 Calcium 8.0 L Magnesium 2.0 Total Bilirubin < 0.1 L AST 14 L ALT 26 Alkaline Phosphatase 92 Total Protein 5.4 L Albumin 2.3 L 08/21/17 03:45 Creatine Kinase 586 H Impressions: Chest X-Ray 08/20/17 23:09 IMPRESSION: No acute cardiopulmonary findings. Abdomen/Pelvis CT 08/20/17 23:35 IMPRESSION: Moderate dilation of the renal collecting system. Differential diagnosis includes bladder outlet obstruction/dysfunction. Cervical Spine CT 08/21/17 00:00 IMPRESSION: CHRONIC DEGENERATIVE CHANGES. NO ACUTE FINDINGS. Head CT 08/21/17 00:00 IMPRESSION: MILD CHRONIC CHANGES OF ATROPHY AND MICROVASCULAR ISCHEMIA. NO ACUTE PROCESS. EVIDENCE OF ACUTE STROKE: NO. Renal Ultrasound 08/21/17 00:00 IMPRESSION: UNREMARKABLE RENAL AND BLADDER ULTRASOUND. HYDRONEPHROSIS SEEN ON RECENT CT HAS IMPROVED. THIS PROBABLY WAS DUE TO DISTENDED BLADDER WHICH HAS RESOLVED WITH PLACEMENT OF MOCTEZUMA CATHETER. Shoulder X-Ray 08/30/17 00:00 IMPRESSION: No acute fracture or malalignment Assessment & Plan - Diagnosis (1) Acute renal failure Qualifiers: Acute renal failure type: unspecified Qualified Code(s): N17.9 - Acute kidney failure, unspecified Is this a current diagnosis for this admission?: Yes Plan: looks to have come down to baseline of 1.3 creatinine, at this point and time his kidneys look to be stable. Kidney disease can be followed up as outpatient. Would like him to follow up as outpatient in two weeks after discharge. (2) Hypomagnesemia Is this a current diagnosis for this admission?: Yes Plan: will d/c oral magnesium since he is having diarrhea, magnesium could be adding to the problem. Will look to give him IV as needed. (3) Obstructive uropathy Is this a current diagnosis for this admission?: Yes Plan: currently has moctezuma (4) Sacral decubitus ulcer Qualifiers: Pressure ulcer stage: unspecified pressure ulcer stage Qualified Code(s): L89.159 - Pressure ulcer of sacral region, unspecified stage Is this a current diagnosis for this admission?: Yes Plan: being managed by surgery (5) Weakness Is this a current diagnosis for this admission?: Yes Plan: going to long-term after his stay in the hospital. (6) Anemia Qualifiers: Anemia type: unspecified type Qualified Code(s): D64.9 - Anemia, unspecified Is this a current diagnosis for this admission?: Yes Plan: will look to get iron panels after he received IV iron for 5 days. If iron panels are normal, anemia could be from CKD.
[2017-09-03] MEDS: TAMSULOSIN HCL 0.4 MG CAP.SR.24H PO SCH (19:04)
--- NOTE | 2017-09-03 19:25 | PDOC PROGRESS REPORT ---
Subjective Progress Note for:: 09/03/17 Subjective:: pains sacral decube Reason For Visit: DECUBITUS ULCERS,RENAL FAILURE,HYPERKALEMIA Physical Exam Vital Signs: Temp Pulse Resp BP Pulse Ox 98.0 F 71 16 122/50 L 97 09/03/17 16:00 09/03/17 16:40 09/03/17 16:40 09/03/17 16:00 09/03/17 16:40 Intake & Output 09/02/17 09/03/17 09/04/17 06:59 06:59 06:59 Intake Total 2425 1160 913 Output Total 2350 800 Balance 75 360 913 Weight 115.8 kg 115.5 kg Exam: Called by nurse because wound vac seal easily breaks down and needed to be changed several times a day. Pt's diarrhea apparently stopped and does not have rectal tube which helps heep sue-rectal area dry for placement of VAC seal. The sacral decube is relatively clean and deep. I could see the problem with keeping the seal in the wound VAC. Hopefully, will have placement for him in [place] and wet to dry may be initiated there at the same time [facility]. Pt refused a temporary colostomy to prevent soilage of the sacral decube close to the rectum. Results Laboratory Results: 09/03/17 04:28 09/03/17 04:28 09/03/17 09/03/17 04:28 04:28 WBC 13.2 H RBC 2.72 L Hgb 8.1 L Hct 24.5 L MCV 90 MCH 29.6 MCHC 33.0 RDW 13.4 Plt Count 415 Seg Neutrophils % 71.7 Lymphocytes % 15.8 Monocytes % 9.6 Eosinophils % 2.6 Basophils % 0.3 Absolute Neutrophils 9.5 H Absolute Lymphocytes 2.1 Absolute Monocytes 1.3 Absolute Eosinophils 0.3 Absolute Basophils 0.0 Sodium 138.9 Potassium 3.6 Chloride 108 H Carbon Dioxide 23 Anion Gap 8 BUN 20 Creatinine 1.30 H Est GFR ( Amer) > 60 Est GFR (Non-Af Amer) 52 L Glucose 94 Calcium 8.0 L Magnesium 2.0 Total Bilirubin < 0.1 L AST 14 L ALT 26 Alkaline Phosphatase 92 Total Protein 5.4 L Albumin 2.3 L 08/21/17 03:45 Creatine Kinase 586 H Impressions: Chest X-Ray 08/20/17 23:09 IMPRESSION: No acute cardiopulmonary findings. Abdomen/Pelvis CT 08/20/17 23:35 IMPRESSION: Moderate dilation of the renal collecting system. Differential diagnosis includes bladder outlet obstruction/dysfunction. Cervical Spine CT 08/21/17 00:00 IMPRESSION: CHRONIC DEGENERATIVE CHANGES. NO ACUTE FINDINGS. Head CT 08/21/17 00:00 IMPRESSION: MILD CHRONIC CHANGES OF ATROPHY AND MICROVASCULAR ISCHEMIA. NO ACUTE PROCESS. EVIDENCE OF ACUTE STROKE: NO. Renal Ultrasound 08/21/17 00:00 IMPRESSION: UNREMARKABLE RENAL AND BLADDER ULTRASOUND. HYDRONEPHROSIS SEEN ON RECENT CT HAS IMPROVED. THIS PROBABLY WAS DUE TO DISTENDED BLADDER WHICH HAS RESOLVED WITH PLACEMENT OF YEPEZ CATHETER. Shoulder X-Ray 08/30/17 00:00 IMPRESSION: No acute fracture or malalignment
[2017-09-04] MEDS: METRONIDAZOLE 500 MG/NS RTU 100 ML IV SCH ×2 (05:17→11:29)
[2017-09-04] MEDS: LANSOPRAZOLE 15 MG TAB.RAP.DR PO SCH (05:17)
[2017-09-04] MEDS: VANCOMYCIN HCL INJ 500 MG VIAL PO SCH ×3 (05:18→18:08)
[2017-09-04 06:51] LABS: ABSOLUTE BASOPHILS # (AUTO) 0.1 10^3/uL (0.0-0.2); ABSOLUTE EOSINOPHILS # (AUTO) 0.4 10^3/uL (0.0-0.6); ABSOLUTE LYMPHOCYTES (AUTO) 1.8 10^3/uL (0.5-4.7); ABSOLUTE MONOCYTES (AUTO) 1.2 10^3/uL (0.1-1.4); ABSOLUTE NEUT (AUTO) 10.6 10^3/uL (1.7-8.2); BASOPHILS % (AUTO) 0.7 % (0-2); EOSINOPHILS % (AUTO) 2.7 % (0-6); HEMATOCRIT 25.6 % (37.9-51.0); HEMOGLOBIN 8.5 g/dL (13.5-17.0); LYMPHOCYTES % (AUTO) 13.1 % (13-45); MEAN CORPUSCULAR HEMOGLOBIN 29.8 pg (27.0-33.4); MEAN CORPUSCULAR VOLUME 90 fl (80-97); MONOCYTES % (AUTO) 8.2 % (3-13); PLATELET COUNT 442 10^3/uL (150-450); RED BLOOD COUNT 2.84 10^6/uL (4.35-5.55); RED CELL DISTRIBUTION WIDTH 13.9 % (11.5-14.0); SEGMENTED NEUTROPHILS % (AUTO) 75.3 % (42-78); TOTAL CELLS COUNTED % (AUTO) 100 %; WHITE BLOOD COUNT 14.1 10^3/uL (4.0-10.5)
[2017-09-04 07:07] LABS: ALANINE AMINOTRANSFERASE 27 U/L (21-72); ALBUMIN 2.3 g/dL (3.5-5.0); ALKALINE PHOSPHATASE 99 U/L (38-126); ANION GAP 7 (5-19); ASPARTATE AMINO TRANSFERASE 15 U/L (17-59); BILIRUBIN,DIRECT 0.2 mg/dL (0.0-0.4); BILIRUBIN,TOTAL 0.2 mg/dL (0.2-1.3); BLOOD UREA NITROGEN 20 mg/dL (7-20); CALCIUM 7.9 mg/dL (8.4-10.2); CARBON DIOXIDE 23 mmol/L (22-30); CHLORIDE 110 mmol/L (98-107); GLUCOSE 103 mg/dL (75-110); POTASSIUM 3.5 mmol/L (3.6-5.0); SODIUM 139.5 mmol/L (137-145); TOTAL PROTEIN 5.7 g/dL (6.3-8.2)
[2017-09-04] MEDS: ALBUTEROL SULFATE 0.083% NEB 2.5 MG/3 ML AMPUL NEB PRN (09:30)
[2017-09-04] MEDS ORDERED: FENTANYL 12 MCG/HR PATCH.TD72 TD SCH (10:00)
[2017-09-04] MEDS: COLLAGENASE CLOSTRIDIUM HIST. OINT 30 GM TP SCH (11:28)
[2017-09-04] MEDS: CHOLECALCIFEROL (D3) 1,000 UNIT TABLET PO SCH (11:29)
[2017-09-04] MEDS: ASPIRIN 325 MG TABLET PO SCH (11:29)
[2017-09-04] MEDS: CYANOCOBALAMIN (VITAMIN B-12) INJ 1000 MCG/1 ML VIAL IM SCH (11:29)
[2017-09-04] MEDS: IRON POLYSACCHARIDES COMPLEX 150 MG CAPSULE PO SCH (11:30)
[2017-09-04] MEDS: GABAPENTIN 100 MG CAPSULE PO SCH ×2 (11:30→21:52)
[2017-09-04] MEDS: METOPROLOL TARTRATE 25 MG TABLET PO SCH ×2 (11:30→21:52)
[2017-09-04] MEDS: ASCORBIC ACID 500 MG TABLET PO SCH (11:30)
[2017-09-04] MEDS: LACTOBACILLUS ACIDOPHILUS 250 MG TAB PO SCH ×2 (11:30→18:08)
--- NOTE | 2017-09-04 15:47 | PDOC PROGRESS REPORT ---
Subjective Progress Note for:: 09/04/17 Subjective:: No new issues Reason For Visit: DECUBITUS ULCERS,RENAL FAILURE,HYPERKALEMIA Physical Exam Vital Signs: Temp Pulse Resp BP Pulse Ox 98.2 F 66 16 121/46 L 97 09/04/17 08:11 09/04/17 14:00 09/04/17 09:32 09/04/17 08:11 09/04/17 09:32 Intake & Output 09/03/17 09/04/17 09/05/17 06:59 06:59 06:59 Intake Total 1160 2063 Output Total 800 750 Balance 360 1313 Weight 115.5 kg 113.7 kg General appearance: PRESENT: no acute distress, well-developed, well-nourished Head exam: PRESENT: atraumatic, normocephalic Eye exam: PRESENT: conjunctiva pink, EOMI. ABSENT: scleral icterus Ear exam: PRESENT: normal external ear exam Mouth exam: PRESENT: moist, tongue midline Neck exam: ABSENT: carotid bruit, JVD, lymphadenopathy, thyromegaly Respiratory exam: PRESENT: clear to auscultation arash. ABSENT: rales, rhonchi, wheezes Cardiovascular exam: PRESENT: RRR. ABSENT: diastolic murmur, rubs, systolic murmur Pulses: PRESENT: normal dorsalis pedis pul Vascular exam: PRESENT: normal capillary refill GI/Abdominal exam: PRESENT: normal bowel sounds, soft. ABSENT: distended, guarding, mass, organolmegaly, rebound, tenderness Rectal exam: PRESENT: deferred Extremities exam: PRESENT: +1 edema - + upper ext edema bilateral. ABSENT: calf tenderness, clubbing Musculoskeletal exam: PRESENT: full ROM Neurological exam: PRESENT: alert, awake, oriented to person, oriented to place , oriented to time, oriented to situation, CN II-XII grossly intact. ABSENT: motor sensory deficit Psychiatric exam: PRESENT: appropriate affect, normal mood. ABSENT: homicidal ideation, suicidal ideation Skin exam: PRESENT: dry, intact, warm. ABSENT: cyanosis, rash Results Laboratory Results: 09/04/17 05:46 09/04/17 05:46 09/04/17 09/04/17 05:46 05:46 WBC 14.1 H RBC 2.84 L Hgb 8.5 L Hct 25.6 L MCV 90 MCH 29.8 MCHC 33.0 RDW 13.9 Plt Count 442 Seg Neutrophils % 75.3 Lymphocytes % 13.1 Monocytes % 8.2 Eosinophils % 2.7 Basophils % 0.7 Absolute Neutrophils 10.6 H Absolute Lymphocytes 1.8 Absolute Monocytes 1.2 Absolute Eosinophils 0.4 Absolute Basophils 0.1 Sodium 139.5 Potassium 3.5 L Chloride 110 H Carbon Dioxide 23 Anion Gap 7 BUN 20 Creatinine 1.18 Est GFR ( Amer) > 60 Est GFR (Non-Af Amer) 58 L Glucose 103 Calcium 7.9 L Magnesium 1.8 Total Bilirubin 0.2 AST 15 L ALT 27 Alkaline Phosphatase 99 Total Protein 5.7 L Albumin 2.3 L 08/21/17 03:45 Creatine Kinase 586 H Impressions: Chest X-Ray 08/20/17 23:09 IMPRESSION: No acute cardiopulmonary findings. Abdomen/Pelvis CT 08/20/17 23:35 IMPRESSION: Moderate dilation of the renal collecting system. Differential diagnosis includes bladder outlet obstruction/dysfunction. Cervical Spine CT 08/21/17 00:00 IMPRESSION: CHRONIC DEGENERATIVE CHANGES. NO ACUTE FINDINGS. Head CT 08/21/17 00:00 IMPRESSION: MILD CHRONIC CHANGES OF ATROPHY AND MICROVASCULAR ISCHEMIA. NO ACUTE PROCESS. EVIDENCE OF ACUTE STROKE: NO. Renal Ultrasound 08/21/17 00:00 IMPRESSION: UNREMARKABLE RENAL AND BLADDER ULTRASOUND. HYDRONEPHROSIS SEEN ON RECENT CT HAS IMPROVED. THIS PROBABLY WAS DUE TO DISTENDED BLADDER WHICH HAS RESOLVED WITH PLACEMENT OF YEPEZ CATHETER. Shoulder X-Ray 08/30/17 00:00 IMPRESSION: No acute fracture or malalignment Assessment & Plan - Diagnosis (1) Debility Is this a current diagnosis for this admission?: Yes Plan: PT/OT evaluation and treatment. (2) Hypomagnesemia Is this a current diagnosis for this admission?: Yes Plan: Resolved. (3) Acute hypernatremia Is this a current diagnosis for this admission?: Yes Plan: Resolved. (4) Acute renal failure Qualifiers: Acute renal failure type: unspecified Qualified Code(s): N17.9 - Acute kidney failure, unspecified Is this a current diagnosis for this admission?: Yes Plan: Secondary to Dehydration: Resolved. (5) Anemia Qualifiers: Anemia type: unspecified type Qualified Code(s): D64.9 - Anemia, unspecified Is this a current diagnosis for this admission?: Yes Plan: Most likely of Chronic Disease: Will place on PO Iron replacement. (6) BPH (benign prostatic hyperplasia) Qualifiers: Lower urinary tract symptom detail: urinary obstruction Is this a current diagnosis for this admission?: Yes Plan: supportive care (7) Bacteremia Is this a current diagnosis for this admission?: Yes Plan: Ruled out: Contaminant. Will discontinue Rocephin. (8) C. difficile diarrhea Is this a current diagnosis for this admission?: Yes Plan: Will continue Vancomycin 500mg PO Q6 hours and flagyl. Patient stools becoming more formed. (9) Hypokalemia due to loss of potassium Is this a current diagnosis for this admission?: Yes Plan: Resolved. (10) Neuropathy Is this a current diagnosis for this admission?: Yes Plan: supportive care (11) Sacral decubitus ulcer, stage IV Is this a current diagnosis for this admission?: Yes Plan: Continue wound care. (12) Wheezing Is this a current diagnosis for this admission?: Yes Plan: Etiology unclear: We will place patient on as needed breathing treatments. Will continue Pulmicort. Patient will need to follow-up with pulmonary as outpatient for Formal lung function test. (13) Bursitis of left shoulder Is this a current diagnosis for this admission?: Yes Plan: Physicial Therapy. Will write for scheduled Tylenol and Lidoderm (14) Atrial fibrillation Qualifiers: Atrial fibrillation type: chronic Qualified Code(s): I48.2 - Chronic atrial fibrillation Is this a current diagnosis for this admission?: No Plan: Continue metoprolol and aspirin. Patient high risk for falls. (15) DVT prophylaxis Is this a current diagnosis for this admission?: Yes Plan: SCDs - Time Time Spent with patient: 15-24 minutes
[2017-09-04] MEDS ORDERED: ACETAMINOPHEN 325 MG TABLET PO ONE (16:15)
[2017-09-04] MEDS: TAMSULOSIN HCL 0.4 MG CAP.SR.24H PO SCH (18:08)
[2017-09-04] MEDS: BUDESONIDE NEB 0.5 MG/2 ML AMPUL NEB SCH (20:10)
[2017-09-04] MEDS: ACETAMINOPHEN 325 MG TABLET PO SCH (21:52)
[2017-09-04] MEDS: TRAMADOL HCL 50 MG TABLET PO PRN (21:52)
[2017-09-05] MEDS: VANCOMYCIN HCL INJ 500 MG VIAL PO SCH ×4 (00:07→17:51)
[2017-09-05] MEDS: ACETAMINOPHEN 325 MG TABLET PO SCH ×3 (05:41→22:51)
[2017-09-05] MEDS: LANSOPRAZOLE 15 MG TAB.RAP.DR PO SCH (05:41)
[2017-09-05 06:32] LABS: ABSOLUTE BASOPHILS # (AUTO) 0.1 10^3/uL (0.0-0.2); ABSOLUTE EOSINOPHILS # (AUTO) 0.4 10^3/uL (0.0-0.6); ABSOLUTE LYMPHOCYTES (AUTO) 2.2 10^3/uL (0.5-4.7); BASOPHILS % (AUTO) 0.8 % (0-2); HEMATOCRIT 25.9 % (37.9-51.0); HEMOGLOBIN 8.4 g/dL (13.5-17.0); LYMPHOCYTES % (AUTO) 17.2 % (13-45); MEAN CORPUSCULAR HEMOGLOBIN 29.3 pg (27.0-33.4); MEAN CORPUSCULAR HGB CONC 32.3 g/dL (32.0-36.0); MEAN CORPUSCULAR VOLUME 91 fl (80-97); MONOCYTES % (AUTO) 8.1 % (3-13); PLATELET COUNT 438 10^3/uL (150-450); RED BLOOD COUNT 2.85 10^6/uL (4.35-5.55); RED CELL DISTRIBUTION WIDTH 13.8 % (11.5-14.0); SEGMENTED NEUTROPHILS % (AUTO) 70.9 % (42-78); TOTAL CELLS COUNTED % (AUTO) 100 %; WHITE BLOOD COUNT 12.6 10^3/uL (4.0-10.5)
[2017-09-05 06:43] LABS: ALANINE AMINOTRANSFERASE 31 U/L (21-72); ALBUMIN 2.4 g/dL (3.5-5.0); ALKALINE PHOSPHATASE 92 U/L (38-126); ASPARTATE AMINO TRANSFERASE 14 U/L (17-59); BILIRUBIN,DIRECT 0.2 mg/dL (0.0-0.4); BILIRUBIN,TOTAL 0.2 mg/dL (0.2-1.3); BLOOD UREA NITROGEN 18 mg/dL (7-20); CALCIUM 8.2 mg/dL (8.4-10.2); CARBON DIOXIDE 24 mmol/L (22-30); CHLORIDE 110 mmol/L (98-107); GLUCOSE 92 mg/dL (75-110); POTASSIUM 3.5 mmol/L (3.6-5.0); SODIUM 138.3 mmol/L (137-145); TOTAL PROTEIN 5.9 g/dL (6.3-8.2)
[2017-09-05 06:45] LABS: ANION GAP 5 (5-19)
[2017-09-05] MEDS: ALBUTEROL SULFATE 0.083% NEB 2.5 MG/3 ML AMPUL NEB PRN ×2 (07:56→19:59)
[2017-09-05] MEDS: BUDESONIDE NEB 0.5 MG/2 ML AMPUL NEB SCH ×2 (07:56→19:59)
[2017-09-05] MEDS: ASCORBIC ACID 500 MG TABLET PO SCH (10:06)
[2017-09-05] MEDS: GABAPENTIN 100 MG CAPSULE PO SCH ×2 (10:07→22:51)
[2017-09-05] MEDS: ASPIRIN 325 MG TABLET PO SCH (10:07)
[2017-09-05] MEDS: CHOLECALCIFEROL (D3) 1,000 UNIT TABLET PO SCH (10:07)
[2017-09-05] MEDS: LACTOBACILLUS ACIDOPHILUS 250 MG TAB PO SCH ×2 (10:07→17:50)
[2017-09-05] MEDS: IRON POLYSACCHARIDES COMPLEX 150 MG CAPSULE PO SCH (10:07)
[2017-09-05] MEDS: CYANOCOBALAMIN (VITAMIN B-12) INJ 1000 MCG/1 ML VIAL IM SCH (10:07)
[2017-09-05] MEDS: COLLAGENASE CLOSTRIDIUM HIST. OINT 30 GM TP SCH (10:07)
[2017-09-05] MEDS: METOPROLOL TARTRATE 25 MG TABLET PO SCH ×2 (10:07→22:51)
[2017-09-05] MEDS: LIDOCAINE 5% (700 MG) TRANSDERMAL ADH..PATCH TP SCH (10:08)
--- NOTE | 2017-09-05 15:47 | PDOC PROGRESS REPORT ---
Subjective Progress Note for:: 09/05/17 Subjective:: No overnight events. Complaining of poor sleep and requesting sleeping aid. Continues on antibiotics for CDI. Feels that stools are improving. Denies abdominal pain, [place]. [facility] Reason For Visit: DECUBITUS ULCERS,RENAL FAILURE,HYPERKALEMIA Physical Exam Vital Signs: Temp Pulse Resp BP Pulse Ox 97.6 F 65 18 121/51 L 98 09/05/17 11:06 09/05/17 14:00 09/05/17 11:06 09/05/17 11:06 09/05/17 11:06 Intake & Output 09/04/17 09/05/17 09/06/17 06:59 06:59 06:59 Intake Total 2063 1565 Output Total 750 2440 Balance 1313 -875 Weight 113.7 kg 113.8 kg General appearance: PRESENT: no acute distress, obese Head exam: PRESENT: atraumatic, normocephalic Mouth exam: PRESENT: moist Respiratory exam: PRESENT: unlabored Cardiovascular exam: PRESENT: +S1, +S2 GI/Abdominal exam: PRESENT: normal bowel sounds, soft. ABSENT: tenderness Neurological exam: PRESENT: alert, awake, CN II-XII grossly intact Psychiatric exam: PRESENT: appropriate affect Results Laboratory Results: 09/05/17 05:48 09/05/17 05:48 09/05/17 09/05/17 05:48 05:48 WBC 12.6 H RBC 2.85 L Hgb 8.4 L Hct 25.9 L MCV 91 MCH 29.3 MCHC 32.3 RDW 13.8 Plt Count 438 Seg Neutrophils % 70.9 Lymphocytes % 17.2 Monocytes % 8.1 Eosinophils % 3.0 Basophils % 0.8 Absolute Neutrophils 9.0 H Absolute Lymphocytes 2.2 Absolute Monocytes 1.0 Absolute Eosinophils 0.4 Absolute Basophils 0.1 Sodium 138.3 Potassium 3.5 L Chloride 110 H Carbon Dioxide 24 Anion Gap 5 BUN 18 Creatinine 1.22 Est GFR ( Amer) > 60 Est GFR (Non-Af Amer) 56 L Glucose 92 Calcium 8.2 L Magnesium 1.8 Total Bilirubin 0.2 AST 14 L ALT 31 Alkaline Phosphatase 92 Total Protein 5.9 L Albumin 2.4 L 08/21/17 03:45 Creatine Kinase 586 H Impressions: Chest X-Ray 08/20/17 23:09 IMPRESSION: No acute cardiopulmonary findings. Abdomen/Pelvis CT 08/20/17 23:35 IMPRESSION: Moderate dilation of the renal collecting system. Differential diagnosis includes bladder outlet obstruction/dysfunction. Cervical Spine CT 08/21/17 00:00 IMPRESSION: CHRONIC DEGENERATIVE CHANGES. NO ACUTE FINDINGS. Head CT 08/21/17 00:00 IMPRESSION: MILD CHRONIC CHANGES OF ATROPHY AND MICROVASCULAR ISCHEMIA. NO ACUTE PROCESS. EVIDENCE OF ACUTE STROKE: NO. Renal Ultrasound 08/21/17 00:00 IMPRESSION: UNREMARKABLE RENAL AND BLADDER ULTRASOUND. HYDRONEPHROSIS SEEN ON RECENT CT HAS IMPROVED. THIS PROBABLY WAS DUE TO DISTENDED BLADDER WHICH HAS RESOLVED WITH PLACEMENT OF YEPEZ CATHETER. Shoulder X-Ray 08/30/17 00:00 IMPRESSION: No acute fracture or malalignment Assessment & Plan - Diagnosis (1) C. difficile diarrhea Is this a current diagnosis for this admission?: Yes Plan: Improving, continue PO Vanc and Flagyl for 10 day course, end data 09/08/17 (2) Acute renal failure Qualifiers: Acute renal failure type: unspecified Qualified Code(s): N17.9 - Acute kidney failure, unspecified Is this a current diagnosis for this admission?: Yes Plan: Creatinine stable, currently 1.22 on 09/05 which is at baseline - Seen by nephrology this admission, plans to see him as outpatient ~2 weeks post discharge (3) Sacral decubitus ulcer, stage IV Is this a current diagnosis for this admission?: Yes Plan: Known sacral decub ulcer. - Over last 24-48 hours noted that his wound vac seal easily breaks down and needed to be changed several times a day. Vac currently sealed and draining well today - At nursing facility, would can be dressed wet to dry may - [facility] - Pt has previously refused a temporary colostomy to prevent soilage of the sacral decube close to the rectum - Time Time Spent with patient: 15-24 minutes Anticipated discharge: SNF, Acute Rehab Within: when bed available
[2017-09-05] MEDS ORDERED: TRAZODONE HCL 50 MG TABLET PO ONE (17:00)
[2017-09-05] MEDS: TAMSULOSIN HCL 0.4 MG CAP.SR.24H PO SCH (17:51)
[2017-09-05] MEDS: TRAMADOL HCL 50 MG TABLET PO PRN (22:51)
[2017-09-06] MEDS: VANCOMYCIN HCL INJ 500 MG VIAL PO SCH ×4 (01:23→18:35)
[2017-09-06] MEDS: ACETAMINOPHEN 325 MG TABLET PO SCH ×3 (06:56→22:07)
[2017-09-06] MEDS: LANSOPRAZOLE 15 MG TAB.RAP.DR PO SCH (06:57)
[2017-09-06] MEDS: BUDESONIDE NEB 0.5 MG/2 ML AMPUL NEB SCH ×2 (08:15→19:51)
[2017-09-06] MEDS: LACTOBACILLUS ACIDOPHILUS 250 MG TAB PO SCH ×2 (10:49→18:35)
[2017-09-06] MEDS: GABAPENTIN 100 MG CAPSULE PO SCH ×2 (10:49→22:07)
[2017-09-06] MEDS: METOPROLOL TARTRATE 25 MG TABLET PO SCH ×2 (10:49→22:07)
[2017-09-06] MEDS: ASPIRIN 325 MG TABLET PO SCH (10:49)
[2017-09-06] MEDS: MULTIVITAMIN TABLET PO SCH (10:49)
[2017-09-06] MEDS: CHOLECALCIFEROL (D3) 1,000 UNIT TABLET PO SCH (10:49)
[2017-09-06] MEDS: ASCORBIC ACID 500 MG TABLET PO SCH (10:49)
[2017-09-06] MEDS: FENTANYL 12 MCG/HR PATCH.TD72 TD SCH (10:50)
[2017-09-06] MEDS: IRON POLYSACCHARIDES COMPLEX 150 MG CAPSULE PO SCH (10:50)
[2017-09-06] MEDS: COLLAGENASE CLOSTRIDIUM HIST. OINT 30 GM TP SCH (10:50)
[2017-09-06] MEDS: LIDOCAINE 5% (700 MG) TRANSDERMAL ADH..PATCH TP SCH (10:50)
[2017-09-06] MEDS: CYANOCOBALAMIN (VITAMIN B-12) INJ 1000 MCG/1 ML VIAL IM SCH (10:50)
--- NOTE | 2017-09-06 10:57 | PDOC PROGRESS REPORT ---
Subjective Progress Note for:: 09/06/17 Subjective:: No overnight events. Sleep better with Trazodone last night. Continues on antibiotics for C diff, stools now more formed. Also reports increased flatulence. Denies abdominal pain, NV. [facility] No other complaints Reason For Visit: DECUBITUS ULCERS,RENAL FAILURE,HYPERKALEMIA Physical Exam Vital Signs: Temp Pulse Resp BP Pulse Ox 97.9 F 74 16 127/55 H 95 09/06/17 07:44 09/06/17 08:15 09/06/17 08:15 09/06/17 07:44 09/06/17 08:15 Intake & Output 09/05/17 09/06/17 09/07/17 06:59 06:59 06:59 Intake Total 1565 1368 Output Total 2440 2400 Balance -875 -1032 Weight 113.8 kg 113 kg General appearance: PRESENT: no acute distress, obese, other - Very pleasant Head exam: PRESENT: normocephalic Mouth exam: PRESENT: moist Respiratory exam: PRESENT: unlabored Cardiovascular exam: PRESENT: +S1, +S2 GI/Abdominal exam: PRESENT: soft. ABSENT: firm, tenderness Extremities exam: PRESENT: +1 edema Neurological exam: PRESENT: alert, awake, oriented to person, oriented to place , oriented to time Psychiatric exam: PRESENT: appropriate affect Results Laboratory Results: 09/05/17 05:48 09/05/17 05:48 08/21/17 03:45 Creatine Kinase 586 H Impressions: Chest X-Ray 08/20/17 23:09 IMPRESSION: No acute cardiopulmonary findings. Abdomen/Pelvis CT 08/20/17 23:35 IMPRESSION: Moderate dilation of the renal collecting system. Differential diagnosis includes bladder outlet obstruction/dysfunction. Cervical Spine CT 08/21/17 00:00 IMPRESSION: CHRONIC DEGENERATIVE CHANGES. NO ACUTE FINDINGS. Head CT 08/21/17 00:00 IMPRESSION: MILD CHRONIC CHANGES OF ATROPHY AND MICROVASCULAR ISCHEMIA. NO ACUTE PROCESS. EVIDENCE OF ACUTE STROKE: NO. Renal Ultrasound 08/21/17 00:00 IMPRESSION: UNREMARKABLE RENAL AND BLADDER ULTRASOUND. HYDRONEPHROSIS SEEN ON RECENT CT HAS IMPROVED. THIS PROBABLY WAS DUE TO DISTENDED BLADDER WHICH HAS RESOLVED WITH PLACEMENT OF YEPEZ CATHETER. Shoulder X-Ray 08/30/17 00:00 IMPRESSION: No acute fracture or malalignment Assessment & Plan - Diagnosis (1) C. difficile diarrhea Is this a current diagnosis for this admission?: Yes Plan: Improved, stools formed - Continue PO Vanc and Flagyl for 10 day course, end data 09/08/17 (2) Acute renal failure Qualifiers: Acute renal failure type: unspecified Qualified Code(s): N17.9 - Acute kidney failure, unspecified Is this a current diagnosis for this admission?: Yes (3) Sacral decubitus ulcer, stage IV Is this a current diagnosis for this admission?: Yes Plan: Known sacral decub ulcer. - Noted to have wound vac seal easily breaks down and needed to be changed several times a day. Vac currently sealed and draining well - Evaluated by surgery - Pt has previously refused a temporary colostomy to prevent soilage of the sacral decube close to the rectum Outpatient plan - At nursing facility, would can be dressed wet to dry may - [facility] - Time Time Spent with patient: Less than 15 minutes Anticipated discharge: SNF Within: when bed available - [place]
[2017-09-06] MEDS: TAMSULOSIN HCL 0.4 MG CAP.SR.24H PO SCH (18:35)
[2017-09-06] MEDS: TRAZODONE HCL 50 MG TABLET PO SCH (22:07)
[2017-09-06] MEDS: PHARMACY COMMUNICATION ORDER MC SCH (22:08)
[2017-09-07] MEDS: VANCOMYCIN HCL INJ 500 MG VIAL PO SCH ×4 (00:40→18:29)
[2017-09-07] MEDS: ACETAMINOPHEN 325 MG TABLET PO SCH ×3 (05:39→22:22)
[2017-09-07] MEDS: LANSOPRAZOLE 15 MG TAB.RAP.DR PO SCH (05:40)
[2017-09-07] MEDS: BUDESONIDE NEB 0.5 MG/2 ML AMPUL NEB SCH ×2 (08:14→19:51)
[2017-09-07] MEDS: ASCORBIC ACID 500 MG TABLET PO SCH (10:43)
[2017-09-07] MEDS: COLLAGENASE CLOSTRIDIUM HIST. OINT 30 GM TP SCH (10:43)
[2017-09-07] MEDS: CYANOCOBALAMIN (VITAMIN B-12) INJ 1000 MCG/1 ML VIAL IM SCH (10:44)
[2017-09-07] MEDS: IRON POLYSACCHARIDES COMPLEX 150 MG CAPSULE PO SCH (10:44)
[2017-09-07] MEDS: CHOLECALCIFEROL (D3) 1,000 UNIT TABLET PO SCH (10:44)
[2017-09-07] MEDS: METOPROLOL TARTRATE 25 MG TABLET PO SCH ×2 (10:44→22:19)
[2017-09-07] MEDS: MULTIVITAMIN TABLET PO SCH (10:44)
[2017-09-07] MEDS: ASPIRIN 325 MG TABLET PO SCH (10:44)
[2017-09-07] MEDS: LIDOCAINE 5% (700 MG) TRANSDERMAL ADH..PATCH TP SCH (10:44)
[2017-09-07] MEDS: LACTOBACILLUS ACIDOPHILUS 250 MG TAB PO SCH ×2 (10:44→18:29)
[2017-09-07] MEDS: GABAPENTIN 100 MG CAPSULE PO SCH ×2 (10:44→22:22)
--- NOTE | 2017-09-07 18:08 | PDOC PROGRESS REPORT ---
Subjective Progress Note for:: 09/07/17 Subjective:: No overnight events. Sleep better with uninterrupted sleep. Stool is formed. No abdominal pain, NV. PO intake good. Reason For Visit: DECUBITUS ULCERS,RENAL FAILURE,HYPERKALEMIA Physical Exam Vital Signs: Temp Pulse Resp BP Pulse Ox 97.9 F 65 20 139/67 H 97 09/07/17 16:00 09/07/17 16:00 09/07/17 16:00 09/07/17 16:00 09/07/17 16:00 Intake & Output 09/06/17 09/07/17 09/08/17 06:59 06:59 06:59 Intake Total 1603 504 7962 Output Total 2400 1800 920 Balance -1032 -1092 120 Weight 113 kg 111.2 kg General appearance: PRESENT: no acute distress, obese, other - Comfortable in bed Head exam: PRESENT: normocephalic Mouth exam: PRESENT: moist Respiratory exam: PRESENT: unlabored. ABSENT: tachypnea, wheezes Cardiovascular exam: PRESENT: +S1, +S2. ABSENT: tachycardia GI/Abdominal exam: PRESENT: soft. ABSENT: distended, firm, tenderness Rectal exam: PRESENT: deferred Neurological exam: PRESENT: alert, awake, CN II-XII grossly intact Psychiatric exam: PRESENT: appropriate affect Results Laboratory Results: 09/05/17 05:48 09/05/17 05:48 08/21/17 03:45 Creatine Kinase 586 H Impressions: Chest X-Ray 08/20/17 23:09 IMPRESSION: No acute cardiopulmonary findings. Abdomen/Pelvis CT 08/20/17 23:35 IMPRESSION: Moderate dilation of the renal collecting system. Differential diagnosis includes bladder outlet obstruction/dysfunction. Cervical Spine CT 08/21/17 00:00 IMPRESSION: CHRONIC DEGENERATIVE CHANGES. NO ACUTE FINDINGS. Head CT 08/21/17 00:00 IMPRESSION: MILD CHRONIC CHANGES OF ATROPHY AND MICROVASCULAR ISCHEMIA. NO ACUTE PROCESS. EVIDENCE OF ACUTE STROKE: NO. Renal Ultrasound 08/21/17 00:00 IMPRESSION: UNREMARKABLE RENAL AND BLADDER ULTRASOUND. HYDRONEPHROSIS SEEN ON RECENT CT HAS IMPROVED. THIS PROBABLY WAS DUE TO DISTENDED BLADDER WHICH HAS RESOLVED WITH PLACEMENT OF YEPEZ CATHETER. Shoulder X-Ray 08/30/17 00:00 IMPRESSION: No acute fracture or malalignment Assessment & Plan - Diagnosis (1) C. difficile diarrhea Is this a current diagnosis for this admission?: Yes Plan: Improved, stools formed - Continue PO Vanc for 10 day course, end data 09/08/17 - Was also receiving Flagyl which has now been discontinued - Continue contact pre-cautions until antibiotic course has completed (2) Acute renal failure Qualifiers: Acute renal failure type: unspecified Qualified Code(s): N17.9 - Acute kidney failure, unspecified Is this a current diagnosis for this admission?: Yes Plan: Creatinine stable, last Cr was 1.22 on 09/05 which is at baseline - Seen by nephrology this admission, plans to see him as outpatient ~2 weeks post discharge (3) Sacral decubitus ulcer, stage IV Is this a current diagnosis for this admission?: Yes Plan: Known sacral decub ulcer. - Noted to have wound vac seal easily breaks down and needed to be changed several times a day. Vac currently sealed and draining well - Evaluated by surgery - Pt has previously refused a temporary colostomy to prevent soilage of the sacral decube close to the rectum - Currently d/w production staff worker and doing wet to dry dressing changes as needed Outpatient plan - At nursing facility, would continue wet to dry - [facility] - Time Time Spent with patient: Less than 15 minutes Within: when bed available
[2017-09-07] MEDS: TAMSULOSIN HCL 0.4 MG CAP.SR.24H PO SCH (18:29)
[2017-09-07] MEDS: TRAZODONE HCL 50 MG TABLET PO SCH (22:22)
[2017-09-07] MEDS: PHARMACY COMMUNICATION ORDER MC SCH (22:22)
[2017-09-08] MEDS: VANCOMYCIN HCL INJ 500 MG VIAL PO SCH ×3 (00:46→12:00)
[2017-09-08 05:59] LABS: HEMATOCRIT 27.2 % (37.9-51.0); HEMOGLOBIN 8.9 g/dL (13.5-17.0); MEAN CORPUSCULAR HEMOGLOBIN 29.7 pg (27.0-33.4); MEAN CORPUSCULAR HGB CONC 32.8 g/dL (32.0-36.0); MEAN CORPUSCULAR VOLUME 91 fl (80-97); PLATELET COUNT 490 10^3/uL (150-450); RED BLOOD COUNT 3.01 10^6/uL (4.35-5.55); RED CELL DISTRIBUTION WIDTH 13.9 % (11.5-14.0)
[2017-09-08] MEDS: ACETAMINOPHEN 325 MG TABLET PO SCH ×3 (06:20→21:25)
[2017-09-08] MEDS: LANSOPRAZOLE 15 MG TAB.RAP.DR PO SCH (06:20)
[2017-09-08 06:39] LABS: BLOOD UREA NITROGEN 17 mg/dL (7-20); CALCIUM 8.3 mg/dL (8.4-10.2); GLUCOSE 97 mg/dL (75-110); POTASSIUM 3.8 mmol/L (3.6-5.0)
[2017-09-08 06:45] LABS: CARBON DIOXIDE 29 mmol/L (22-30); CHLORIDE 108 mmol/L (98-107); SODIUM 139.2 mmol/L (137-145)
[2017-09-08 07:25] LABS: ANION GAP 3 (5-19)
[2017-09-08] MEDS: BUDESONIDE NEB 0.5 MG/2 ML AMPUL NEB SCH ×2 (09:02→20:04)
[2017-09-08] MEDS: IRON POLYSACCHARIDES COMPLEX 150 MG CAPSULE PO SCH (10:26)
[2017-09-08] MEDS: COLLAGENASE CLOSTRIDIUM HIST. OINT 30 GM TP SCH (10:26)
[2017-09-08] MEDS: GABAPENTIN 100 MG CAPSULE PO SCH ×2 (10:26→21:25)
[2017-09-08] MEDS: LACTOBACILLUS ACIDOPHILUS 250 MG TAB PO SCH ×2 (10:26→18:11)
[2017-09-08] MEDS: ASCORBIC ACID 500 MG TABLET PO SCH (10:26)
[2017-09-08] MEDS: METOPROLOL TARTRATE 25 MG TABLET PO SCH ×2 (10:26→21:25)
[2017-09-08] MEDS: CHOLECALCIFEROL (D3) 1,000 UNIT TABLET PO SCH (10:26)
[2017-09-08] MEDS: ASPIRIN 325 MG TABLET PO SCH (10:27)
[2017-09-08] MEDS: MULTIVITAMIN TABLET PO SCH (10:27)
[2017-09-08] MEDS: CYANOCOBALAMIN (VITAMIN B-12) INJ 1000 MCG/1 ML VIAL IM SCH (10:27)
[2017-09-08] MEDS: LIDOCAINE 5% (700 MG) TRANSDERMAL ADH..PATCH TP SCH (10:27)
--- NOTE | 2017-09-08 17:31 | PDOC PROGRESS REPORT ---
Subjective Progress Note for:: 09/08/17 Subjective:: Patient seen apparently with no complaints. He said he had a good night and had a good breakfast. Reason For Visit: DECUBITUS ULCERS,RENAL FAILURE,HYPERKALEMIA Physical Exam Vital Signs: Temp Pulse Resp BP Pulse Ox 97.5 F 66 22 H 141/68 H 98 09/08/17 12:00 09/08/17 14:00 09/08/17 12:00 09/08/17 12:00 09/08/17 12:00 Intake & Output 09/07/17 09/08/17 09/09/17 06:59 06:59 06:59 Intake Total 708 1705 Output Total 1800 2220 Balance -1092 -515 Weight 111.2 kg 113.1 kg General appearance: PRESENT: no acute distress Head exam: PRESENT: atraumatic Eye exam: PRESENT: conjunctival injection Ear exam: PRESENT: normal external ear exam Neck exam: ABSENT: JVD, thyromegaly Respiratory exam: PRESENT: clear to auscultation arash. ABSENT: rales, rhonchi, wheezes Cardiovascular exam: PRESENT: RRR. ABSENT: diastolic murmur, rubs, systolic murmur GI/Abdominal exam: PRESENT: normal bowel sounds, soft. ABSENT: distended, guarding, mass, organolmegaly, rebound, tenderness Neurological exam: PRESENT: alert, awake Skin exam: PRESENT: other - Sacral decubitus ulcers covered with dressing Results Laboratory Results: 09/08/17 05:20 09/08/17 05:20 09/08/17 09/08/17 05:20 05:20 WBC 10.0 RBC 3.01 L Hgb 8.9 L Hct 27.2 L MCV 91 MCH 29.7 MCHC 32.8 RDW 13.9 Plt Count 490 H Sodium 139.2 Potassium 3.8 Chloride 108 H Carbon Dioxide 29 Anion Gap 3 L BUN 17 Creatinine 1.03 Est GFR ( Amer) > 60 Est GFR (Non-Af Amer) > 60 Glucose 97 Calcium 8.3 L 08/21/17 03:45 Creatine Kinase 586 H Impressions: Chest X-Ray 08/20/17 23:09 IMPRESSION: No acute cardiopulmonary findings. Abdomen/Pelvis CT 08/20/17 23:35 IMPRESSION: Moderate dilation of the renal collecting system. Differential diagnosis includes bladder outlet obstruction/dysfunction. Cervical Spine CT 08/21/17 00:00 IMPRESSION: CHRONIC DEGENERATIVE CHANGES. NO ACUTE FINDINGS. Head CT 08/21/17 00:00 IMPRESSION: MILD CHRONIC CHANGES OF ATROPHY AND MICROVASCULAR ISCHEMIA. NO ACUTE PROCESS. EVIDENCE OF ACUTE STROKE: NO. Renal Ultrasound 08/21/17 00:00 IMPRESSION: UNREMARKABLE RENAL AND BLADDER ULTRASOUND. HYDRONEPHROSIS SEEN ON RECENT CT HAS IMPROVED. THIS PROBABLY WAS DUE TO DISTENDED BLADDER WHICH HAS RESOLVED WITH PLACEMENT OF YEPEZ CATHETER. Shoulder X-Ray 08/30/17 00:00 IMPRESSION: No acute fracture or malalignment Assessment & Plan - Time Time Spent with patient: 15-24 minutes Anticipated discharge: SNF Within: within 72 hours - Inpatient Certification Medical Necessity: Significant Comorbidiites Make Outpatient Treatment Too Risky - Plan Summary Plan Summary: C. difficile colitis currently on p.o. vancomycin which should be completed today. Diarrhea has resolved 2. Acute renal failure likely secondary to dehydration. Follow up with outpatient nephrology. His kidney function appears to be at baseline 3. Sacral decubitus stage IV present and admission he does have a wound VAC in place. Wet-to-dry dressing changes are being done. 4. Discharge plan is for nursing facility once stable
[2017-09-08] MEDS: TAMSULOSIN HCL 0.4 MG CAP.SR.24H PO SCH (18:12)
[2017-09-08] MEDS: TRAZODONE HCL 50 MG TABLET PO SCH (21:25)
[2017-09-08] MEDS: PHARMACY COMMUNICATION ORDER MC SCH (21:26)
[2017-09-09] MEDS: LANSOPRAZOLE 15 MG TAB.RAP.DR PO SCH (06:13)
[2017-09-09] MEDS: ACETAMINOPHEN 325 MG TABLET PO SCH ×3 (06:13→22:06)
[2017-09-09] MEDS: BUDESONIDE NEB 0.5 MG/2 ML AMPUL NEB SCH ×2 (09:14→20:02)
[2017-09-09] MEDS: FENTANYL 12 MCG/HR PATCH.TD72 TD SCH (10:48)
[2017-09-09] MEDS: ASPIRIN 325 MG TABLET PO SCH (10:48)
[2017-09-09] MEDS: GABAPENTIN 100 MG CAPSULE PO SCH ×2 (10:48→22:06)
[2017-09-09] MEDS: CHOLECALCIFEROL (D3) 1,000 UNIT TABLET PO SCH (10:48)
[2017-09-09] MEDS: ASCORBIC ACID 500 MG TABLET PO SCH (10:48)
[2017-09-09] MEDS: MULTIVITAMIN TABLET PO SCH (10:48)
[2017-09-09] MEDS: LACTOBACILLUS ACIDOPHILUS 250 MG TAB PO SCH ×2 (10:48→18:35)
[2017-09-09] MEDS: IRON POLYSACCHARIDES COMPLEX 150 MG CAPSULE PO SCH (10:48)
[2017-09-09] MEDS: CYANOCOBALAMIN (VITAMIN B-12) INJ 1000 MCG/1 ML VIAL IM SCH (10:49)
[2017-09-09] MEDS: COLLAGENASE CLOSTRIDIUM HIST. OINT 30 GM TP SCH (10:49)
[2017-09-09] MEDS: LIDOCAINE 5% (700 MG) TRANSDERMAL ADH..PATCH TP SCH (10:49)
[2017-09-09] MEDS: METOPROLOL TARTRATE 25 MG TABLET PO SCH ×2 (10:50→22:06)
--- NOTE | 2017-09-09 16:59 | PDOC PROGRESS REPORT ---
Subjective Progress Note for:: 09/09/17 Subjective:: Patient seen apparently with no complaints. Reason For Visit: DECUBITUS ULCERS,RENAL FAILURE,HYPERKALEMIA Physical Exam Vital Signs: Temp Pulse Resp BP Pulse Ox 97.6 F 51 L 24 H 136/57 H 95 09/09/17 11:46 09/09/17 11:46 09/09/17 11:46 09/09/17 11:46 09/09/17 11:46 Intake & Output 09/08/17 09/09/17 09/10/17 06:59 06:59 06:59 Intake Total 1705 1220 Output Total 2220 1450 Balance -515 -230 Weight 113.1 kg 110.8 kg General appearance: PRESENT: no acute distress Head exam: PRESENT: atraumatic Neck exam: ABSENT: carotid bruit, JVD, lymphadenopathy, thyromegaly Respiratory exam: PRESENT: clear to auscultation arash. ABSENT: rales, rhonchi, wheezes Cardiovascular exam: PRESENT: RRR. ABSENT: diastolic murmur, rubs, systolic murmur GI/Abdominal exam: PRESENT: normal bowel sounds, soft. ABSENT: distended, guarding, mass, organolmegaly, rebound, tenderness Rectal exam: PRESENT: deferred Psychiatric exam: PRESENT: appropriate affect, normal mood. ABSENT: homicidal ideation, suicidal ideation Skin exam: PRESENT: other - sacral decubitus ulcers Results Laboratory Results: 09/08/17 05:20 09/08/17 05:20 08/21/17 03:45 Creatine Kinase 586 H Impressions: Chest X-Ray 08/20/17 23:09 IMPRESSION: No acute cardiopulmonary findings. Abdomen/Pelvis CT 08/20/17 23:35 IMPRESSION: Moderate dilation of the renal collecting system. Differential diagnosis includes bladder outlet obstruction/dysfunction. Cervical Spine CT 08/21/17 00:00 IMPRESSION: CHRONIC DEGENERATIVE CHANGES. NO ACUTE FINDINGS. Head CT 08/21/17 00:00 IMPRESSION: MILD CHRONIC CHANGES OF ATROPHY AND MICROVASCULAR ISCHEMIA. NO ACUTE PROCESS. EVIDENCE OF ACUTE STROKE: NO. Renal Ultrasound 08/21/17 00:00 IMPRESSION: UNREMARKABLE RENAL AND BLADDER ULTRASOUND. HYDRONEPHROSIS SEEN ON RECENT CT HAS IMPROVED. THIS PROBABLY WAS DUE TO DISTENDED BLADDER WHICH HAS RESOLVED WITH PLACEMENT OF YEPEZ CATHETER. Shoulder X-Ray 08/30/17 00:00 IMPRESSION: No acute fracture or malalignment Assessment & Plan - Time Time Spent with patient: Less than 15 minutes Medications reviewed and adjusted accordingly: Yes Anticipated discharge: SNF Within: when bed available - Plan Summary Plan Summary: 1. C. difficile colitis completed p.o. vancomycin. Diarrhea has resolved 2. Acute renal failure likely secondary to dehydration. Follow up with outpatient nephrology. His kidney function at baseline 3. Sacral decubitus stage IV present on admission he does have a wound VAC in place. Wet-to-dry dressing changes are being done. 4. Discharge plan is for nursing facility once stable
[2017-09-09] MEDS: TAMSULOSIN HCL 0.4 MG CAP.SR.24H PO SCH (18:35)
[2017-09-09] MEDS: TRAZODONE HCL 50 MG TABLET PO SCH (22:06)
[2017-09-09] MEDS: PHARMACY COMMUNICATION ORDER MC SCH (22:14)
[2017-09-10] MEDS: LANSOPRAZOLE 15 MG TAB.RAP.DR PO SCH (06:37)
[2017-09-10] MEDS: ACETAMINOPHEN 325 MG TABLET PO SCH ×3 (06:37→22:11)
[2017-09-10] MEDS: BUDESONIDE NEB 0.5 MG/2 ML AMPUL NEB SCH ×2 (08:16→20:50)
[2017-09-10] MEDS: CYANOCOBALAMIN (VITAMIN B-12) INJ 1000 MCG/1 ML VIAL IM SCH (09:47)
[2017-09-10] MEDS: MULTIVITAMIN TABLET PO SCH (09:48)
[2017-09-10] MEDS: IRON POLYSACCHARIDES COMPLEX 150 MG CAPSULE PO SCH (09:48)
[2017-09-10] MEDS: LIDOCAINE 5% (700 MG) TRANSDERMAL ADH..PATCH TP SCH (09:48)
[2017-09-10] MEDS: GABAPENTIN 100 MG CAPSULE PO SCH ×2 (09:48→22:11)
[2017-09-10] MEDS: ASPIRIN 325 MG TABLET PO SCH (09:48)
[2017-09-10] MEDS: ASCORBIC ACID 500 MG TABLET PO SCH (09:48)
[2017-09-10] MEDS: LACTOBACILLUS ACIDOPHILUS 250 MG TAB PO SCH ×2 (09:48→18:14)
[2017-09-10] MEDS: CHOLECALCIFEROL (D3) 1,000 UNIT TABLET PO SCH (09:49)
[2017-09-10] MEDS: METOPROLOL TARTRATE 25 MG TABLET PO SCH ×2 (09:49→22:11)
[2017-09-10] MEDS: COLLAGENASE CLOSTRIDIUM HIST. OINT 30 GM TP SCH (09:49)
--- NOTE | 2017-09-10 18:02 | PDOC PROGRESS REPORT ---
Subjective Progress Note for:: 09/10/17 Subjective:: Patient seen aand he denies any complaints. He is awaiting Rehab placement. Moctezuma removed yesterday but had to be reinserted today due to urine retention. There is a question of his Flomax not being digested as nursing nots some residue in his stool Reason For Visit: DECUBITUS ULCERS,RENAL FAILURE,HYPERKALEMIA Physical Exam Vital Signs: Temp Pulse Resp BP Pulse Ox 97.3 F 66 32 H 163/69 H 96 09/10/17 07:49 09/10/17 16:34 09/10/17 16:34 09/10/17 16:34 09/10/17 16:34 Intake & Output 09/09/17 09/10/17 09/11/17 06:59 06:59 06:59 Intake Total 1220 1408 0 Output Total 1450 700 Balance -230 708 0 Weight 110.8 kg General appearance: PRESENT: no acute distress Head exam: PRESENT: atraumatic Neck exam: ABSENT: carotid bruit, JVD, lymphadenopathy, thyromegaly Cardiovascular exam: PRESENT: RRR. ABSENT: diastolic murmur, rubs, systolic murmur GI/Abdominal exam: PRESENT: normal bowel sounds, soft. ABSENT: distended, guarding, mass, organolmegaly, rebound, tenderness Rectal exam: PRESENT: deferred Neurological exam: PRESENT: alert, awake Psychiatric exam: PRESENT: appropriate affect Results Laboratory Results: 09/08/17 05:20 09/08/17 05:20 08/21/17 03:45 Creatine Kinase 586 H Impressions: Chest X-Ray 08/20/17 23:09 IMPRESSION: No acute cardiopulmonary findings. Abdomen/Pelvis CT 08/20/17 23:35 IMPRESSION: Moderate dilation of the renal collecting system. Differential diagnosis includes bladder outlet obstruction/dysfunction. Cervical Spine CT 08/21/17 00:00 IMPRESSION: CHRONIC DEGENERATIVE CHANGES. NO ACUTE FINDINGS. Head CT 08/21/17 00:00 IMPRESSION: MILD CHRONIC CHANGES OF ATROPHY AND MICROVASCULAR ISCHEMIA. NO ACUTE PROCESS. EVIDENCE OF ACUTE STROKE: NO. Renal Ultrasound 08/21/17 00:00 IMPRESSION: UNREMARKABLE RENAL AND BLADDER ULTRASOUND. HYDRONEPHROSIS SEEN ON RECENT CT HAS IMPROVED. THIS PROBABLY WAS DUE TO DISTENDED BLADDER WHICH HAS RESOLVED WITH PLACEMENT OF MOCTEZUMA CATHETER. Shoulder X-Ray 08/30/17 00:00 IMPRESSION: No acute fracture or malalignment Assessment & Plan - Time Time Spent with patient: 15-24 minutes Medications reviewed and adjusted accordingly: Yes Anticipated discharge: SNF Within: when bed available - Plan Summary Plan Summary: 1. C. difficile colitis completed p.o. vancomycin. Diarrhea has resolved, dc isolation 2. Acute renal failure likely secondary to dehydration. Follow up with outpatient nephrology. His kidney function at baseline 3. Sacral decubitus stage IV present on admission he does have a wound VAC in place. Wet-to-dry dressing changes are being done. 4. Discharge plan is for nursing facility once stable 5. Urinary Retention- will change to Proscar, leave moctezuma in place and follow up with Nephrology as outpatient
[2017-09-10] MEDS: ALBUTEROL SULFATE 0.083% NEB 2.5 MG/3 ML AMPUL NEB PRN (20:50)
[2017-09-10] MEDS: TRAZODONE HCL 50 MG TABLET PO SCH (22:11)
[2017-09-10] MEDS: PHARMACY COMMUNICATION ORDER MC SCH (23:14)
[2017-09-11] MEDS: LANSOPRAZOLE 15 MG TAB.RAP.DR PO SCH (06:45)
[2017-09-11] MEDS: ACETAMINOPHEN 325 MG TABLET PO SCH ×3 (06:45→22:02)
[2017-09-11 07:21] LABS: ABSOLUTE BASOPHILS # (AUTO) 0.1 10^3/uL (0.0-0.2); ABSOLUTE EOSINOPHILS # (AUTO) 0.2 10^3/uL (0.0-0.6); ABSOLUTE LYMPHOCYTES (AUTO) 2.2 10^3/uL (0.5-4.7); ABSOLUTE MONOCYTES (AUTO) 0.7 10^3/uL (0.1-1.4); ABSOLUTE NEUT (AUTO) 5.9 10^3/uL (1.7-8.2); BASOPHILS % (AUTO) 1.5 % (0-2); EOSINOPHILS % (AUTO) 1.9 % (0-6); HEMATOCRIT 29.7 % (37.9-51.0); HEMOGLOBIN 9.7 g/dL (13.5-17.0); LYMPHOCYTES % (AUTO) 24.2 % (13-45); MEAN CORPUSCULAR HEMOGLOBIN 30.1 pg (27.0-33.4); MEAN CORPUSCULAR HGB CONC 32.7 g/dL (32.0-36.0); MEAN CORPUSCULAR VOLUME 92 fl (80-97); MONOCYTES % (AUTO) 7.6 % (3-13); PLATELET COUNT 513 10^3/uL (150-450); RED BLOOD COUNT 3.22 10^6/uL (4.35-5.55); RED CELL DISTRIBUTION WIDTH 14.2 % (11.5-14.0); SEGMENTED NEUTROPHILS % (AUTO) 64.8 % (42-78); TOTAL CELLS COUNTED % (AUTO) 100 %; WHITE BLOOD COUNT 9.1 10^3/uL (4.0-10.5)
[2017-09-11 07:35] LABS: ANION GAP 6 (5-19); BLOOD UREA NITROGEN 17 mg/dL (7-20); CALCIUM 8.8 mg/dL (8.4-10.2); CARBON DIOXIDE 32 mmol/L (22-30); CHLORIDE 105 mmol/L (98-107); GLUCOSE 94 mg/dL (75-110); POTASSIUM 3.9 mmol/L (3.6-5.0); SODIUM 142.8 mmol/L (137-145)
[2017-09-11] MEDS: BUDESONIDE NEB 0.5 MG/2 ML AMPUL NEB SCH ×2 (08:38→19:57)
[2017-09-11] MEDS: LACTOBACILLUS ACIDOPHILUS 250 MG TAB PO SCH ×2 (10:41→17:46)
[2017-09-11] MEDS: ASCORBIC ACID 500 MG TABLET PO SCH (10:41)
[2017-09-11] MEDS: METOPROLOL TARTRATE 25 MG TABLET PO SCH ×2 (10:41→22:02)
[2017-09-11] MEDS: CHOLECALCIFEROL (D3) 1,000 UNIT TABLET PO SCH (10:41)
[2017-09-11] MEDS: COLLAGENASE CLOSTRIDIUM HIST. OINT 30 GM TP SCH (10:41)
[2017-09-11] MEDS: IRON POLYSACCHARIDES COMPLEX 150 MG CAPSULE PO SCH (10:42)
[2017-09-11] MEDS: ASPIRIN 325 MG TABLET PO SCH (10:42)
[2017-09-11] MEDS: CYANOCOBALAMIN (VITAMIN B-12) INJ 1000 MCG/1 ML VIAL IM SCH (10:42)
[2017-09-11] MEDS: FINASTERIDE 5 MG TABLET PO SCH (10:42)
[2017-09-11] MEDS: GABAPENTIN 100 MG CAPSULE PO SCH ×2 (10:42→22:02)
[2017-09-11] MEDS: MULTIVITAMIN TABLET PO SCH (10:42)
[2017-09-11] MEDS: LIDOCAINE 5% (700 MG) TRANSDERMAL ADH..PATCH TP SCH (10:43)
[2017-09-11 17:52] LABS: APPEARANCE,URINE CLOUDY; BILIRUBIN,URINE NEGATIVE (NEGATIVE); CALCIUM OXALATE CRYSTALS,URINE MANY /HPF; COLOR,URINE YELLOW; GLUCOSE, URINE 50 mg/dL (NEGATIVE); KETONES,URINE NEGATIVE (NEGATIVE); LEUKOCYTE ESTERASE,URINE MODERATE (NEGATIVE); NITRITE,URINE NEGATIVE (NEGATIVE); PROTEIN,URINE 30 mg/dL (NEGATIVE); URIC ACID CRYSTALS,URINE MODERATE /HPF; URINE SPECIFIC GRAVITY 1.014; UROBILINOGEN,URINE NEGATIVE mg/dL (<2.0)
--- NOTE | 2017-09-11 18:00 | PDOC PROGRESS REPORT ---
Subjective Progress Note for:: 09/11/17 Subjective:: Nursing states that pt stool is more formed. Patient states that he feels weak and would like to get up out of bed. Reason For Visit: DECUBITUS ULCERS,RENAL FAILURE,HYPERKALEMIA Physical Exam Vital Signs: Temp Pulse Resp BP Pulse Ox 97.0 F 65 18 142/54 H 100 09/11/17 16:00 09/11/17 16:00 09/11/17 16:00 09/11/17 16:00 09/11/17 16:00 Intake & Output 09/10/17 09/11/17 09/12/17 06:59 06:59 06:59 Intake Total 4823 961 4636 Output Total 700 1840 500 Balance 708 -910 565 Weight 110.4 kg General appearance: PRESENT: no acute distress, well-developed, well-nourished Head exam: PRESENT: atraumatic, normocephalic Eye exam: PRESENT: conjunctiva pink, EOMI. ABSENT: scleral icterus Ear exam: PRESENT: normal external ear exam Mouth exam: PRESENT: moist, tongue midline Neck exam: ABSENT: carotid bruit, JVD, lymphadenopathy, thyromegaly Respiratory exam: PRESENT: clear to auscultation arash. ABSENT: rales, rhonchi, wheezes Cardiovascular exam: PRESENT: RRR. ABSENT: diastolic murmur, rubs, systolic murmur Pulses: PRESENT: normal dorsalis pedis pul Vascular exam: PRESENT: normal capillary refill GI/Abdominal exam: PRESENT: normal bowel sounds, soft. ABSENT: distended, guarding, mass, organolmegaly, rebound, tenderness Rectal exam: PRESENT: deferred Extremities exam: PRESENT: pedal edema - Trace. ABSENT: calf tenderness, clubbing Neurological exam: PRESENT: alert, awake, oriented to person, oriented to place , oriented to time Psychiatric exam: PRESENT: appropriate affect, normal mood. ABSENT: homicidal ideation, suicidal ideation Skin exam: PRESENT: dry, intact, warm. ABSENT: cyanosis, rash Results Laboratory Results: 09/11/17 06:40 09/11/17 06:40 09/11/17 09/11/17 09/11/17 06:40 06:40 17:00 WBC 9.1 RBC 3.22 L Hgb 9.7 L Hct 29.7 L MCV 92 MCH 30.1 MCHC 32.7 RDW 14.2 H Plt Count 513 H Seg Neutrophils % 64.8 Lymphocytes % 24.2 Monocytes % 7.6 Eosinophils % 1.9 Basophils % 1.5 Absolute Neutrophils 5.9 Absolute Lymphocytes 2.2 Absolute Monocytes 0.7 Absolute Eosinophils 0.2 Absolute Basophils 0.1 Sodium 142.8 Potassium 3.9 Chloride 105 Carbon Dioxide 32 H Anion Gap 6 BUN 17 Creatinine 0.96 Est GFR ( Amer) > 60 Est GFR (Non-Af Amer) > 60 Glucose 94 Calcium 8.8 Urine Color YELLOW Urine Appearance CLOUDY Urine pH 5.0 Ur Specific [place] 1.014 Urine Protein 30 H Urine Glucose (UA) 50 H Urine Ketones NEGATIVE Urine Blood LARGE H Urine Nitrite NEGATIVE Ur Leukocyte Esterase MODERATE H Urine WBC (Auto) 93 Urine RBC (Auto) >182 08/21/17 03:45 Creatine Kinase 586 H Impressions: Chest X-Ray 08/20/17 23:09 IMPRESSION: No acute cardiopulmonary findings. Abdomen/Pelvis CT 08/20/17 23:35 IMPRESSION: Moderate dilation of the renal collecting system. Differential diagnosis includes bladder outlet obstruction/dysfunction. Cervical Spine CT 08/21/17 00:00 IMPRESSION: CHRONIC DEGENERATIVE CHANGES. NO ACUTE FINDINGS. Head CT 08/21/17 00:00 IMPRESSION: MILD CHRONIC CHANGES OF ATROPHY AND MICROVASCULAR ISCHEMIA. NO ACUTE PROCESS. EVIDENCE OF ACUTE STROKE: NO. Renal Ultrasound 08/21/17 00:00 IMPRESSION: UNREMARKABLE RENAL AND BLADDER ULTRASOUND. HYDRONEPHROSIS SEEN ON RECENT CT HAS IMPROVED. THIS PROBABLY WAS DUE TO DISTENDED BLADDER WHICH HAS RESOLVED WITH PLACEMENT OF YEPEZ CATHETER. Shoulder X-Ray 08/30/17 00:00 IMPRESSION: No acute fracture or malalignment Assessment & Plan - Diagnosis (1) Debility Is this a current diagnosis for this admission?: Yes Plan: PT/OT evaluation and treatment. (2) Hypomagnesemia Is this a current diagnosis for this admission?: Yes Plan: Resolved. (3) Acute hypernatremia Is this a current diagnosis for this admission?: Yes Plan: Resolved. (4) Acute renal failure Qualifiers: Acute renal failure type: unspecified Qualified Code(s): N17.9 - Acute kidney failure, unspecified Is this a current diagnosis for this admission?: Yes Plan: Secondary to Dehydration: Resolved. (5) Anemia Qualifiers: Anemia type: unspecified type Qualified Code(s): D64.9 - Anemia, unspecified Is this a current diagnosis for this admission?: Yes Plan: Most likely of Chronic Disease: will continue iron replacement. (6) BPH (benign prostatic hyperplasia) Qualifiers: Lower urinary tract symptom detail: urinary obstruction Is this a current diagnosis for this admission?: Yes Plan: Yepez in place due to urinary retention. Will check UA and urine culture to evaluate for UTI. (7) Bacteremia Is this a current diagnosis for this admission?: Yes Plan: Ruled out: Contaminant. Will discontinue Rocephin. (8) C. difficile diarrhea Is this a current diagnosis for this admission?: Yes Plan: Patient still is now formed. Patient has been off vancomycin and Flagyl treatment (9) Hypokalemia due to loss of potassium Is this a current diagnosis for this admission?: Yes Plan: Resolved. (10) Neuropathy Is this a current diagnosis for this admission?: Yes Plan: supportive care (11) Sacral decubitus ulcer, stage IV Is this a current diagnosis for this admission?: Yes Plan: Continue wound care. (12) Wheezing Is this a current diagnosis for this admission?: Yes Plan: Etiology unclear: We will place patient on as needed breathing treatments. Will continue Pulmicort. Patient will need to follow-up with pulmonary as outpatient for Formal lung function test. (13) Bursitis of left shoulder Is this a current diagnosis for this admission?: Yes Plan: Physicial Therapy. Resolving (14) Atrial fibrillation Qualifiers: Atrial fibrillation type: chronic Qualified Code(s): I48.2 - Chronic atrial fibrillation Is this a current diagnosis for this admission?: No Plan: Continue metoprolol and aspirin. Patient high risk for falls. (15) DVT prophylaxis Is this a current diagnosis for this admission?: Yes Plan: SCDs - Time Time Spent with patient: Less than 15 minutes
[2017-09-11] MEDS: TRAZODONE HCL 50 MG TABLET PO SCH (22:02)
[2017-09-11] MEDS: PHARMACY COMMUNICATION ORDER MC SCH (22:02)
[2017-09-12 05:10] LABS: ABSOLUTE EOSINOPHILS # (AUTO) 0.2 10^3/uL (0.0-0.6); ABSOLUTE LYMPHOCYTES (AUTO) 2.6 10^3/uL (0.5-4.7); ABSOLUTE MONOCYTES (AUTO) 0.9 10^3/uL (0.1-1.4); ABSOLUTE NEUT (AUTO) 6.6 10^3/uL (1.7-8.2); BASOPHILS % (AUTO) 0.2 % (0-2); EOSINOPHILS % (AUTO) 2.4 % (0-6); HEMATOCRIT 28.8 % (37.9-51.0); HEMOGLOBIN 9.5 g/dL (13.5-17.0); LYMPHOCYTES % (AUTO) 25.1 % (13-45); MEAN CORPUSCULAR HEMOGLOBIN 30.2 pg (27.0-33.4); MEAN CORPUSCULAR HGB CONC 33.1 g/dL (32.0-36.0); MEAN CORPUSCULAR VOLUME 91 fl (80-97); MONOCYTES % (AUTO) 8.8 % (3-13); PLATELET COUNT 450 10^3/uL (150-450); RED BLOOD COUNT 3.16 10^6/uL (4.35-5.55); RED CELL DISTRIBUTION WIDTH 14.5 % (11.5-14.0); SEGMENTED NEUTROPHILS % (AUTO) 63.5 % (42-78); TOTAL CELLS COUNTED % (AUTO) 100 %; WHITE BLOOD COUNT 10.4 10^3/uL (4.0-10.5)
[2017-09-12] MEDS: ACETAMINOPHEN 325 MG TABLET PO SCH ×3 (05:23→23:14)
[2017-09-12] MEDS: LANSOPRAZOLE 15 MG TAB.RAP.DR PO SCH (05:23)
[2017-09-12 05:33] LABS: ALANINE AMINOTRANSFERASE 26 U/L (21-72); ALBUMIN 2.8 g/dL (3.5-5.0); ALKALINE PHOSPHATASE 130 U/L (38-126); ANION GAP 9 (5-19); ASPARTATE AMINO TRANSFERASE 20 U/L (17-59); BLOOD UREA NITROGEN 17 mg/dL (7-20); CALCIUM 8.9 mg/dL (8.4-10.2); CARBON DIOXIDE 33 mmol/L (22-30); CHLORIDE 102 mmol/L (98-107); GLUCOSE 85 mg/dL (75-110); SODIUM 143.9 mmol/L (137-145); TOTAL PROTEIN 6.2 g/dL (6.3-8.2)
[2017-09-12 05:39] LABS: BILIRUBIN,TOTAL < 0.1 mg/dL (0.2-1.3)
[2017-09-12] MEDS: BUDESONIDE NEB 0.5 MG/2 ML AMPUL NEB SCH ×2 (08:56→20:00)
[2017-09-12] MEDS: LACTOBACILLUS ACIDOPHILUS 250 MG TAB PO SCH ×2 (10:48→17:38)
[2017-09-12] MEDS: GABAPENTIN 100 MG CAPSULE PO SCH ×2 (10:49→23:14)
[2017-09-12] MEDS: ASPIRIN 325 MG TABLET PO SCH (10:49)
[2017-09-12] MEDS: FINASTERIDE 5 MG TABLET PO SCH (10:49)
[2017-09-12] MEDS: METOPROLOL TARTRATE 25 MG TABLET PO SCH ×2 (10:50→23:14)
[2017-09-12] MEDS: IRON POLYSACCHARIDES COMPLEX 150 MG CAPSULE PO SCH (10:50)
[2017-09-12] MEDS: ASCORBIC ACID 500 MG TABLET PO SCH (10:52)
[2017-09-12] MEDS: CHOLECALCIFEROL (D3) 1,000 UNIT TABLET PO SCH (10:52)
[2017-09-12] MEDS: MULTIVITAMIN TABLET PO SCH (10:52)
[2017-09-12] MEDS: LIDOCAINE 5% (700 MG) TRANSDERMAL ADH..PATCH TP SCH (10:54)
[2017-09-12] MEDS: COLLAGENASE CLOSTRIDIUM HIST. OINT 30 GM TP SCH (10:54)
[2017-09-12] MEDS: CYANOCOBALAMIN (VITAMIN B-12) INJ 1000 MCG/1 ML VIAL IM SCH (10:55)
--- NOTE | 2017-09-12 17:31 | PDOC PROGRESS REPORT ---
Subjective Progress Note for:: 09/12/17 Subjective:: No new issues. Reason For Visit: DECUBITUS ULCERS,RENAL FAILURE,HYPERKALEMIA Physical Exam Vital Signs: Temp Pulse Resp BP Pulse Ox 97.7 F 67 28 H 152/71 H 100 09/12/17 11:38 09/12/17 14:00 09/12/17 11:38 09/12/17 11:38 09/12/17 11:38 Intake & Output 09/11/17 09/12/17 09/13/17 06:59 06:59 06:59 Intake Total 930 1520 Output Total 1840 1175 Balance -910 345 Weight 110.4 kg 111.3 kg General appearance: PRESENT: no acute distress, well-developed, well-nourished Head exam: PRESENT: atraumatic, normocephalic Eye exam: PRESENT: conjunctiva pink, EOMI. ABSENT: scleral icterus Ear exam: PRESENT: normal external ear exam Mouth exam: PRESENT: moist, tongue midline Neck exam: ABSENT: carotid bruit, JVD, lymphadenopathy, thyromegaly Respiratory exam: PRESENT: clear to auscultation arash. ABSENT: rales, rhonchi, wheezes Cardiovascular exam: PRESENT: RRR. ABSENT: diastolic murmur, rubs, systolic murmur Pulses: PRESENT: normal dorsalis pedis pul Vascular exam: PRESENT: normal capillary refill GI/Abdominal exam: PRESENT: normal bowel sounds, soft. ABSENT: distended, guarding, mass, organolmegaly, rebound, tenderness Rectal exam: PRESENT: deferred Extremities exam: ABSENT: calf tenderness, clubbing, pedal edema Neurological exam: PRESENT: alert, awake, oriented to person, oriented to place , oriented to time, oriented to situation, CN II-XII grossly intact. ABSENT: motor sensory deficit Psychiatric exam: PRESENT: appropriate affect, normal mood. ABSENT: homicidal ideation, suicidal ideation Skin exam: PRESENT: dry, intact, warm. ABSENT: cyanosis, rash Results Laboratory Results: 09/12/17 04:35 09/12/17 04:35 09/11/17 09/12/17 09/12/17 17:00 04:35 04:35 WBC 10.4 RBC 3.16 L Hgb 9.5 L Hct 28.8 L MCV 91 MCH 30.2 MCHC 33.1 RDW 14.5 H Plt Count 450 Seg Neutrophils % 63.5 Lymphocytes % 25.1 Monocytes % 8.8 Eosinophils % 2.4 Basophils % 0.2 Absolute Neutrophils 6.6 Absolute Lymphocytes 2.6 Absolute Monocytes 0.9 Absolute Eosinophils 0.2 Absolute Basophils 0.0 Sodium 143.9 Potassium 4.0 Chloride 102 Carbon Dioxide 33 H Anion Gap 9 BUN 17 Creatinine 1.14 Est GFR ( Amer) > 60 Est GFR (Non-Af Amer) > 60 Glucose 85 Calcium 8.9 Magnesium 1.8 Total Bilirubin < 0.1 L AST 20 ALT 26 Alkaline Phosphatase 130 H Total Protein 6.2 L Albumin 2.8 L Urine Color YELLOW Urine Appearance CLOUDY Urine pH 5.0 Ur Specific [place] 1.014 Urine Protein 30 H Urine Glucose (UA) 50 H Urine Ketones NEGATIVE Urine Blood LARGE H Urine Nitrite NEGATIVE Ur Leukocyte Esterase MODERATE H Urine WBC (Auto) 93 Urine RBC (Auto) >182 08/21/17 03:45 Creatine Kinase 586 H Impressions: Chest X-Ray 08/20/17 23:09 IMPRESSION: No acute cardiopulmonary findings. Abdomen/Pelvis CT 08/20/17 23:35 IMPRESSION: Moderate dilation of the renal collecting system. Differential diagnosis includes bladder outlet obstruction/dysfunction. Cervical Spine CT 08/21/17 00:00 IMPRESSION: CHRONIC DEGENERATIVE CHANGES. NO ACUTE FINDINGS. Head CT 08/21/17 00:00 IMPRESSION: MILD CHRONIC CHANGES OF ATROPHY AND MICROVASCULAR ISCHEMIA. NO ACUTE PROCESS. EVIDENCE OF ACUTE STROKE: NO. Renal Ultrasound 08/21/17 00:00 IMPRESSION: UNREMARKABLE RENAL AND BLADDER ULTRASOUND. HYDRONEPHROSIS SEEN ON RECENT CT HAS IMPROVED. THIS PROBABLY WAS DUE TO DISTENDED BLADDER WHICH HAS RESOLVED WITH PLACEMENT OF YEPEZ CATHETER. Shoulder X-Ray 08/30/17 00:00 IMPRESSION: No acute fracture or malalignment Assessment & Plan - Diagnosis (1) Debility Is this a current diagnosis for this admission?: Yes Plan: PT/OT evaluation and treatment. (2) Hypomagnesemia Is this a current diagnosis for this admission?: Yes Plan: Resolved. (3) Acute hypernatremia Is this a current diagnosis for this admission?: Yes Plan: Resolved. (4) Acute renal failure Qualifiers: Acute renal failure type: unspecified Qualified Code(s): N17.9 - Acute kidney failure, unspecified Is this a current diagnosis for this admission?: Yes Plan: Secondary to Dehydration: Resolved. (5) Anemia Qualifiers: Anemia type: unspecified type Qualified Code(s): D64.9 - Anemia, unspecified Is this a current diagnosis for this admission?: Yes Plan: Most likely of Chronic Disease: will continue iron replacement. (6) BPH (benign prostatic hyperplasia) Qualifiers: Lower urinary tract symptom detail: urinary obstruction Is this a current diagnosis for this admission?: Yes Plan: Yepez in place due to urinary retention. Urine culture Pending (7) Bacteremia Is this a current diagnosis for this admission?: Yes Plan: Ruled out: Contaminant. Will discontinue Rocephin. (8) C. difficile diarrhea Is this a current diagnosis for this admission?: Yes Plan: Patient still is now formed. Patient has been off vancomycin and Flagyl treatment (9) Hypokalemia due to loss of potassium Is this a current diagnosis for this admission?: Yes Plan: Resolved. (10) Neuropathy Is this a current diagnosis for this admission?: Yes Plan: supportive care (11) Sacral decubitus ulcer, stage IV Is this a current diagnosis for this admission?: Yes Plan: Continue wound care. (12) Wheezing Is this a current diagnosis for this admission?: Yes Plan: Etiology unclear: We will place patient on as needed breathing treatments. Will continue Pulmicort. Patient will need to follow-up with pulmonary as outpatient for Formal lung function test. (13) Bursitis of left shoulder Is this a current diagnosis for this admission?: Yes Plan: Physicial Therapy. Resolving (14) Atrial fibrillation Qualifiers: Atrial fibrillation type: chronic Qualified Code(s): I48.2 - Chronic atrial fibrillation Is this a current diagnosis for this admission?: No Plan: Continue metoprolol and aspirin. Patient high risk for falls. (15) DVT prophylaxis Is this a current diagnosis for this admission?: Yes Plan: SCDs - Time Time Spent with patient: Less than 15 minutes
[2017-09-12] MEDS: TRAZODONE HCL 50 MG TABLET PO SCH (23:14)
[2017-09-12] MEDS: PHARMACY COMMUNICATION ORDER MC SCH (23:15)
[2017-09-13 05:25] LABS: ABSOLUTE BASOPHILS # (AUTO) 0.1 10^3/uL (0.0-0.2); ABSOLUTE EOSINOPHILS # (AUTO) 0.3 10^3/uL (0.0-0.6); ABSOLUTE LYMPHOCYTES (AUTO) 2.5 10^3/uL (0.5-4.7); ABSOLUTE MONOCYTES (AUTO) 0.9 10^3/uL (0.1-1.4); ABSOLUTE NEUT (AUTO) 7.1 10^3/uL (1.7-8.2); BASOPHILS % (AUTO) 1.3 % (0-2); EOSINOPHILS % (AUTO) 2.3 % (0-6); HEMATOCRIT 31.9 % (37.9-51.0); HEMOGLOBIN 10.1 g/dL (13.5-17.0); LYMPHOCYTES % (AUTO) 23.1 % (13-45); MEAN CORPUSCULAR HEMOGLOBIN 29.7 pg (27.0-33.4); MEAN CORPUSCULAR HGB CONC 31.8 g/dL (32.0-36.0); MEAN CORPUSCULAR VOLUME 93 fl (80-97); MONOCYTES % (AUTO) 8.4 % (3-13); PLATELET COUNT 496 10^3/uL (150-450); RED BLOOD COUNT 3.42 10^6/uL (4.35-5.55); RED CELL DISTRIBUTION WIDTH 14.4 % (11.5-14.0); SEGMENTED NEUTROPHILS % (AUTO) 64.9 % (42-78); TOTAL CELLS COUNTED % (AUTO) 100 %
[2017-09-13] MEDS: LANSOPRAZOLE 15 MG TAB.RAP.DR PO SCH (05:35)
[2017-09-13] MEDS: ACETAMINOPHEN 325 MG TABLET PO SCH ×3 (05:35→23:16)
[2017-09-13 05:44] LABS: ALANINE AMINOTRANSFERASE 31 U/L (21-72); ALBUMIN 3.1 g/dL (3.5-5.0); ALKALINE PHOSPHATASE 147 U/L (38-126); ANION GAP 7 (5-19); ASPARTATE AMINO TRANSFERASE 25 U/L (17-59); BILIRUBIN,DIRECT 0.2 mg/dL (0.0-0.4); BILIRUBIN,TOTAL 0.2 mg/dL (0.2-1.3); BLOOD UREA NITROGEN 18 mg/dL (7-20); CARBON DIOXIDE 35 mmol/L (22-30); CHLORIDE 101 mmol/L (98-107); GLUCOSE 97 mg/dL (75-110); POTASSIUM 4.4 mmol/L (3.6-5.0); SODIUM 142.6 mmol/L (137-145); TOTAL PROTEIN 6.5 g/dL (6.3-8.2)
[2017-09-13] MEDS: BUDESONIDE NEB 0.5 MG/2 ML AMPUL NEB SCH ×2 (08:41→20:32)
[2017-09-13] MEDS: CHOLECALCIFEROL (D3) 1,000 UNIT TABLET PO SCH (10:28)
[2017-09-13] MEDS: IRON POLYSACCHARIDES COMPLEX 150 MG CAPSULE PO SCH (10:28)
[2017-09-13] MEDS: GABAPENTIN 100 MG CAPSULE PO SCH ×2 (10:28→23:17)
[2017-09-13] MEDS: ASCORBIC ACID 500 MG TABLET PO SCH (10:28)
[2017-09-13] MEDS: FINASTERIDE 5 MG TABLET PO SCH (10:29)
[2017-09-13] MEDS: METOPROLOL TARTRATE 25 MG TABLET PO SCH ×2 (10:29→23:17)
[2017-09-13] MEDS: MULTIVITAMIN TABLET PO SCH (10:29)
[2017-09-13] MEDS: ASPIRIN 325 MG TABLET PO SCH (10:30)
[2017-09-13] MEDS: CYANOCOBALAMIN (VITAMIN B-12) INJ 1000 MCG/1 ML VIAL IM SCH (10:30)
[2017-09-13] MEDS: LACTOBACILLUS ACIDOPHILUS 250 MG TAB PO SCH ×2 (10:30→17:04)
[2017-09-13] MEDS: COLLAGENASE CLOSTRIDIUM HIST. OINT 30 GM TP SCH (10:31)
[2017-09-13] MEDS: LIDOCAINE 5% (700 MG) TRANSDERMAL ADH..PATCH TP SCH (10:31)
--- NOTE | 2017-09-13 17:42 | PDOC PROGRESS REPORT ---
Subjective Progress Note for:: 09/13/17 Subjective:: No new issues. Reason For Visit: DECUBITUS ULCERS,RENAL FAILURE,HYPERKALEMIA Physical Exam Vital Signs: Temp Pulse Resp BP Pulse Ox 98.6 F 70 26 H 148/66 H 98 09/13/17 12:08 09/13/17 14:00 09/13/17 12:08 09/13/17 12:08 09/13/17 12:08 Intake & Output 09/12/17 09/13/17 09/14/17 06:59 06:59 06:59 Intake Total 1520 593 Output Total 1175 830 Balance 345 -237 Weight 111.3 kg 111 kg General appearance: PRESENT: no acute distress, well-developed, well-nourished Head exam: PRESENT: atraumatic, normocephalic Eye exam: PRESENT: conjunctiva pink, EOMI. ABSENT: scleral icterus Ear exam: PRESENT: normal external ear exam Mouth exam: PRESENT: moist, tongue midline Neck exam: ABSENT: carotid bruit, JVD, lymphadenopathy, thyromegaly Respiratory exam: PRESENT: clear to auscultation arash. ABSENT: rales, rhonchi, wheezes Cardiovascular exam: PRESENT: RRR. ABSENT: diastolic murmur, rubs, systolic murmur Pulses: PRESENT: normal dorsalis pedis pul Vascular exam: PRESENT: normal capillary refill GI/Abdominal exam: PRESENT: normal bowel sounds, soft. ABSENT: distended, guarding, mass, organolmegaly, rebound, tenderness Rectal exam: PRESENT: deferred Extremities exam: PRESENT: pedal edema. ABSENT: calf tenderness, clubbing Neurological exam: PRESENT: alert, awake, oriented to person, oriented to place , oriented to time Psychiatric exam: PRESENT: appropriate affect, normal mood. ABSENT: homicidal ideation, suicidal ideation Skin exam: PRESENT: dry, intact, warm. ABSENT: cyanosis, rash Results Laboratory Results: 09/13/17 05:00 09/13/17 05:00 09/13/17 09/13/17 05:00 05:00 WBC 11.0 H RBC 3.42 L Hgb 10.1 L Hct 31.9 L MCV 93 MCH 29.7 MCHC 31.8 L RDW 14.4 H Plt Count 496 H Seg Neutrophils % 64.9 Lymphocytes % 23.1 Monocytes % 8.4 Eosinophils % 2.3 Basophils % 1.3 Absolute Neutrophils 7.1 Absolute Lymphocytes 2.5 Absolute Monocytes 0.9 Absolute Eosinophils 0.3 Absolute Basophils 0.1 Sodium 142.6 Potassium 4.4 Chloride 101 Carbon Dioxide 35 H Anion Gap 7 BUN 18 Creatinine 1.11 Est GFR ( Amer) > 60 Est GFR (Non-Af Amer) > 60 Glucose 97 Calcium 9.0 Total Bilirubin 0.2 AST 25 ALT 31 Alkaline Phosphatase 147 H Total Protein 6.5 Albumin 3.1 L 08/21/17 03:45 Creatine Kinase 586 H Impressions: Chest X-Ray 08/20/17 23:09 IMPRESSION: No acute cardiopulmonary findings. Abdomen/Pelvis CT 08/20/17 23:35 IMPRESSION: Moderate dilation of the renal collecting system. Differential diagnosis includes bladder outlet obstruction/dysfunction. Cervical Spine CT 08/21/17 00:00 IMPRESSION: CHRONIC DEGENERATIVE CHANGES. NO ACUTE FINDINGS. Head CT 08/21/17 00:00 IMPRESSION: MILD CHRONIC CHANGES OF ATROPHY AND MICROVASCULAR ISCHEMIA. NO ACUTE PROCESS. EVIDENCE OF ACUTE STROKE: NO. Renal Ultrasound 08/21/17 00:00 IMPRESSION: UNREMARKABLE RENAL AND BLADDER ULTRASOUND. HYDRONEPHROSIS SEEN ON RECENT CT HAS IMPROVED. THIS PROBABLY WAS DUE TO DISTENDED BLADDER WHICH HAS RESOLVED WITH PLACEMENT OF YEPEZ CATHETER. Shoulder X-Ray 08/30/17 00:00 IMPRESSION: No acute fracture or malalignment Assessment & Plan - Diagnosis (1) Debility Is this a current diagnosis for this admission?: Yes Plan: PT/OT evaluation and treatment. (2) Hypomagnesemia Is this a current diagnosis for this admission?: Yes Plan: Resolved. (3) Acute hypernatremia Is this a current diagnosis for this admission?: Yes Plan: Resolved. (4) Acute renal failure Qualifiers: Acute renal failure type: unspecified Qualified Code(s): N17.9 - Acute kidney failure, unspecified Is this a current diagnosis for this admission?: Yes Plan: Secondary to Dehydration: Resolved. (5) Anemia Qualifiers: Anemia type: unspecified type Qualified Code(s): D64.9 - Anemia, unspecified Is this a current diagnosis for this admission?: Yes Plan: Most likely of Chronic Disease: will continue iron replacement. (6) BPH (benign prostatic hyperplasia) Qualifiers: Lower urinary tract symptom detail: urinary obstruction Is this a current diagnosis for this admission?: Yes Plan: Yepez in place due to urinary retention. Urine culture no growth. (7) Bacteremia Is this a current diagnosis for this admission?: Yes Plan: Ruled out: Contaminant. Will discontinue Rocephin. (8) C. difficile diarrhea Is this a current diagnosis for this admission?: Yes Plan: Patient still is now formed. Patient has been off vancomycin and Flagyl treatment (9) Hypokalemia due to loss of potassium Is this a current diagnosis for this admission?: Yes Plan: Resolved. (10) Neuropathy Is this a current diagnosis for this admission?: Yes Plan: supportive care (11) Sacral decubitus ulcer, stage IV Is this a current diagnosis for this admission?: Yes Plan: Continue wound care. (12) Wheezing Is this a current diagnosis for this admission?: Yes Plan: Etiology unclear: We will place patient on as needed breathing treatments. Will continue Pulmicort. Patient will need to follow-up with pulmonary as outpatient for Formal lung function test. (13) Bursitis of left shoulder Is this a current diagnosis for this admission?: Yes Plan: Physicial Therapy. Resolving (14) Atrial fibrillation Qualifiers: Atrial fibrillation type: chronic Qualified Code(s): I48.2 - Chronic atrial fibrillation Is this a current diagnosis for this admission?: No Plan: Continue metoprolol and aspirin. Patient high risk for falls. (15) DVT prophylaxis Is this a current diagnosis for this admission?: Yes Plan: SCDs - Time Time Spent with patient: Less than 15 minutes - Plan Summary Plan Summary: Patient currently awaiting placement.
[2017-09-13] MEDS: TRAZODONE HCL 50 MG TABLET PO SCH (23:18)
[2017-09-13] MEDS: PHARMACY COMMUNICATION ORDER MC SCH (23:19)
[2017-09-14] MEDS: LANSOPRAZOLE 15 MG TAB.RAP.DR PO SCH (05:26)
[2017-09-14] MEDS: ACETAMINOPHEN 325 MG TABLET PO SCH ×3 (05:27→21:54)
[2017-09-14] MEDS: BUDESONIDE NEB 0.5 MG/2 ML AMPUL NEB SCH ×2 (07:54→20:09)
[2017-09-14] MEDS: ASPIRIN 325 MG TABLET PO SCH (10:52)
[2017-09-14] MEDS: LACTOBACILLUS ACIDOPHILUS 250 MG TAB PO SCH ×2 (10:52→18:12)
[2017-09-14] MEDS: METOPROLOL TARTRATE 25 MG TABLET PO SCH ×2 (10:53→21:54)
[2017-09-14] MEDS: ASCORBIC ACID 500 MG TABLET PO SCH (10:53)
[2017-09-14] MEDS: IRON POLYSACCHARIDES COMPLEX 150 MG CAPSULE PO SCH (10:53)
[2017-09-14] MEDS: FINASTERIDE 5 MG TABLET PO SCH (10:53)
[2017-09-14] MEDS: MULTIVITAMIN TABLET PO SCH (10:53)
[2017-09-14] MEDS: CHOLECALCIFEROL (D3) 1,000 UNIT TABLET PO SCH (10:53)
[2017-09-14] MEDS: LIDOCAINE 5% (700 MG) TRANSDERMAL ADH..PATCH TP SCH (10:54)
[2017-09-14] MEDS: CYANOCOBALAMIN (VITAMIN B-12) INJ 1000 MCG/1 ML VIAL IM SCH (10:54)
--- NOTE | 2017-09-14 12:07 | PDOC PROGRESS REPORT ---
Subjective Progress Note for:: 09/14/17 Subjective:: Spoke with daughter this morning who states that she is concerned that her father is sleeping too much. Daughter was wanting to know if patient's medications could be adjusted. Patient was placed on gabapentin twice a day and informed her that we can decrease that to once a day. Reason For Visit: DECUBITUS ULCERS,RENAL FAILURE,HYPERKALEMIA Physical Exam Vital Signs: Temp Pulse Resp BP Pulse Ox 98.5 F 72 20 153/69 H 95 09/14/17 07:40 09/14/17 07:54 09/14/17 07:54 09/14/17 07:40 09/14/17 07:54 Intake & Output 09/13/17 09/14/17 09/15/17 06:59 06:59 06:59 Intake Total 593 363 Output Total 830 830 Balance -237 -467 Weight 111 kg 113.1 kg General appearance: PRESENT: no acute distress, well-developed, well-nourished Head exam: PRESENT: atraumatic, normocephalic Eye exam: PRESENT: conjunctiva pink, EOMI. ABSENT: scleral icterus Ear exam: PRESENT: normal external ear exam Mouth exam: PRESENT: moist, tongue midline Neck exam: ABSENT: carotid bruit, JVD, lymphadenopathy, thyromegaly Respiratory exam: PRESENT: clear to auscultation arash. ABSENT: rales, rhonchi, wheezes Cardiovascular exam: PRESENT: RRR. ABSENT: diastolic murmur, rubs, systolic murmur Pulses: PRESENT: normal dorsalis pedis pul Vascular exam: PRESENT: normal capillary refill GI/Abdominal exam: PRESENT: normal bowel sounds, soft. ABSENT: distended, guarding, mass, organolmegaly, rebound, tenderness Rectal exam: PRESENT: deferred Extremities exam: PRESENT: full ROM, pedal edema, +1 edema. ABSENT: calf tenderness, clubbing Neurological exam: PRESENT: alert, awake, oriented to person, oriented to place , oriented to time, oriented to situation, CN II-XII grossly intact. ABSENT: motor sensory deficit Psychiatric exam: PRESENT: appropriate affect, normal mood. ABSENT: homicidal ideation, suicidal ideation Skin exam: PRESENT: warm Results Laboratory Results: 09/13/17 05:00 09/13/17 05:00 09/12/17 17:46 Catheterized Urine Urine Culture - Final NO GROWTH 2 DAYS 08/21/17 03:45 Creatine Kinase 586 H Impressions: Chest X-Ray 08/20/17 23:09 IMPRESSION: No acute cardiopulmonary findings. Abdomen/Pelvis CT 08/20/17 23:35 IMPRESSION: Moderate dilation of the renal collecting system. Differential diagnosis includes bladder outlet obstruction/dysfunction. Cervical Spine CT 08/21/17 00:00 IMPRESSION: CHRONIC DEGENERATIVE CHANGES. NO ACUTE FINDINGS. Head CT 08/21/17 00:00 IMPRESSION: MILD CHRONIC CHANGES OF ATROPHY AND MICROVASCULAR ISCHEMIA. NO ACUTE PROCESS. EVIDENCE OF ACUTE STROKE: NO. Renal Ultrasound 08/21/17 00:00 IMPRESSION: UNREMARKABLE RENAL AND BLADDER ULTRASOUND. HYDRONEPHROSIS SEEN ON RECENT CT HAS IMPROVED. THIS PROBABLY WAS DUE TO DISTENDED BLADDER WHICH HAS RESOLVED WITH PLACEMENT OF YEPEZ CATHETER. Shoulder X-Ray 08/30/17 00:00 IMPRESSION: No acute fracture or malalignment Assessment & Plan - Diagnosis (1) Debility Is this a current diagnosis for this admission?: Yes Plan: PT/OT evaluation and treatment. (2) Hypomagnesemia Is this a current diagnosis for this admission?: Yes Plan: Resolved. (3) Acute hypernatremia Is this a current diagnosis for this admission?: Yes Plan: Resolved. (4) Acute renal failure Qualifiers: Acute renal failure type: unspecified Qualified Code(s): N17.9 - Acute kidney failure, unspecified Is this a current diagnosis for this admission?: Yes Plan: Secondary to Dehydration: Resolved. (5) Anemia Qualifiers: Anemia type: unspecified type Qualified Code(s): D64.9 - Anemia, unspecified Is this a current diagnosis for this admission?: Yes Plan: Most likely of Chronic Disease: will continue iron replacement. (6) BPH (benign prostatic hyperplasia) Qualifiers: Lower urinary tract symptom detail: urinary obstruction Is this a current diagnosis for this admission?: Yes Plan: Yepez in place due to urinary retention. Urine culture no growth. (7) Bacteremia Is this a current diagnosis for this admission?: Yes Plan: Ruled out: Contaminant. (8) C. difficile diarrhea Is this a current diagnosis for this admission?: Yes Plan: Patient still is now formed. Patient has been off vancomycin and Flagyl treatment (9) Hypokalemia due to loss of potassium Is this a current diagnosis for this admission?: Yes Plan: Resolved. (10) Neuropathy Is this a current diagnosis for this admission?: Yes Plan: supportive care (11) Sacral decubitus ulcer, stage IV Is this a current diagnosis for this admission?: Yes Plan: Continue wound care. Surgery to reevaluate to see if they need to do further debridement (12) Wheezing Is this a current diagnosis for this admission?: Yes Plan: Etiology unclear: We will place patient on as needed breathing treatments. Will continue Pulmicort. Patient will need to follow-up with pulmonary as outpatient for Formal lung function test. (13) Bursitis of left shoulder Is this a current diagnosis for this admission?: Yes Plan: Physicial Therapy. Resolving. Patient able to move left upper extremity more. Patient was placed on Neurontin to see if pain would improve by physician care for patient earlier during his hospital course. Have decreased dose down to once a day. (14) Atrial fibrillation Qualifiers: Atrial fibrillation type: chronic Qualified Code(s): I48.2 - Chronic atrial fibrillation Is this a current diagnosis for this admission?: No Plan: Continue metoprolol and aspirin. Patient high risk for falls. (15) DVT prophylaxis Is this a current diagnosis for this admission?: Yes - Time Time Spent with patient: 15-24 minutes
[2017-09-14] MEDS: COLLAGENASE CLOSTRIDIUM HIST. OINT 30 GM TP SCH (14:38)
[2017-09-14] MEDS: ALBUTEROL SULFATE 0.083% NEB 2.5 MG/3 ML AMPUL NEB PRN (20:09)
[2017-09-14] MEDS: TRAZODONE HCL 50 MG TABLET PO SCH (21:54)
[2017-09-14] MEDS: PHARMACY COMMUNICATION ORDER MC SCH (21:55)
--- NOTE | 2017-09-15 00:33 | OPERATIVE REPORT E ---
Operative Report NAME: JOVAN PUENTE : 1930 AGE: 87Y DATE OF SURGERY: 09/14/2017 ROOM: 433 PREOPERATIVE DIAGNOSIS: DECUBITUS ULCER OF THE SACRAL AREA, ROUGHLY ABOUT 8 X 7 X 3 CM DEEP. POSTOPERATIVE DIAGNOSIS: DECUBITUS ULCER OF THE SACRAL AREA, ROUGHLY ABOUT 8 X 7 X 3 CM DEEP. OPERATION: Sharp debridement of sacral decubitus to the subcutaneous layer. SURGEON: ADELSO DE PAZ M.D. PROCEDURE: Patient was placed in the right lateral decubitus position and the sacral decubitus area was then sharply debrided with scissors. The necrotic tissue appeared to be quite thin and quite difficult to remove. At any rate, most of the areas on top of the central part of the decubitus, where it was going to a cavity site, was primarily debrided. The patient still had some necrotic tissue that was very adherent. Because of this, the patient is to continue the Santyl chemical debridement twice a day. Patient tolerated the procedure well. DICTATING PHYSICIAN: ADELSO DE PAZ M.D. [id number] PHY#: [id number] ID: [id number] JOB#: [id number] ACCT: [id number] cc:ADELSO DE PAZ M.D. >
[2017-09-15] MEDS: LANSOPRAZOLE 15 MG TAB.RAP.DR PO SCH (06:32)
[2017-09-15] MEDS: ACETAMINOPHEN 325 MG TABLET PO SCH ×3 (06:32→23:03)
[2017-09-15] MEDS: ALBUTEROL SULFATE 0.083% NEB 2.5 MG/3 ML AMPUL NEB PRN ×2 (08:10→20:09)
[2017-09-15] MEDS: BUDESONIDE NEB 0.5 MG/2 ML AMPUL NEB SCH ×2 (08:10→20:09)
[2017-09-15] MEDS: FINASTERIDE 5 MG TABLET PO SCH (10:52)
[2017-09-15] MEDS: IRON POLYSACCHARIDES COMPLEX 150 MG CAPSULE PO SCH (10:52)
[2017-09-15] MEDS: METOPROLOL TARTRATE 25 MG TABLET PO SCH ×2 (10:52→23:03)
[2017-09-15] MEDS: LACTOBACILLUS ACIDOPHILUS 250 MG TAB PO SCH ×2 (10:52→17:35)
[2017-09-15] MEDS: ASPIRIN 325 MG TABLET PO SCH (10:53)
[2017-09-15] MEDS: CHOLECALCIFEROL (D3) 1,000 UNIT TABLET PO SCH (10:53)
[2017-09-15] MEDS: GABAPENTIN 100 MG CAPSULE PO SCH (10:53)
[2017-09-15] MEDS: MULTIVITAMIN TABLET PO SCH (10:54)
[2017-09-15] MEDS: NYSTATIN TOPICAL POWDER 15 GM TP SCH ×3 (10:54→17:35)
[2017-09-15] MEDS: LIDOCAINE 5% (700 MG) TRANSDERMAL ADH..PATCH TP SCH (10:54)
[2017-09-15] MEDS: ASCORBIC ACID 500 MG TABLET PO SCH (10:54)
[2017-09-15] MEDS: CYANOCOBALAMIN (VITAMIN B-12) INJ 1000 MCG/1 ML VIAL IM SCH (10:55)
[2017-09-15] MEDS: COLLAGENASE CLOSTRIDIUM HIST. OINT 30 GM TP SCH (10:55)
--- NOTE | 2017-09-15 15:10 | PDOC PROGRESS REPORT ---
Subjective Progress Note for:: 09/15/17 Subjective:: No new issues. Reason For Visit: DECUBITUS ULCERS,RENAL FAILURE,HYPERKALEMIA Physical Exam Vital Signs: Temp Pulse Resp BP Pulse Ox 97.5 F 76 18 146/80 H 98 09/15/17 11:25 09/15/17 14:00 09/15/17 11:25 09/15/17 11:25 09/15/17 11:25 Intake & Output 09/14/17 09/15/17 09/16/17 06:59 06:59 07:59 Intake Total 363 1342 Output Total 830 1200 Balance -467 142 Weight 113.1 kg 113.4 kg General appearance: PRESENT: no acute distress, well-developed, well-nourished Head exam: PRESENT: atraumatic, normocephalic Eye exam: PRESENT: conjunctiva pink, EOMI. ABSENT: scleral icterus Ear exam: PRESENT: normal external ear exam Mouth exam: PRESENT: moist, tongue midline Neck exam: ABSENT: carotid bruit, JVD, lymphadenopathy, thyromegaly Respiratory exam: PRESENT: clear to auscultation arash. ABSENT: rales, rhonchi, wheezes Cardiovascular exam: PRESENT: RRR. ABSENT: diastolic murmur, rubs, systolic murmur Pulses: PRESENT: normal dorsalis pedis pul Vascular exam: PRESENT: normal capillary refill GI/Abdominal exam: PRESENT: normal bowel sounds, soft. ABSENT: distended, guarding, mass, organolmegaly, rebound, tenderness Rectal exam: PRESENT: deferred Extremities exam: PRESENT: +1 edema. ABSENT: calf tenderness, clubbing, pedal edema Neurological exam: PRESENT: alert, awake, oriented to person, oriented to place , oriented to time, oriented to situation, CN II-XII grossly intact. ABSENT: motor sensory deficit Psychiatric exam: PRESENT: appropriate affect, normal mood. ABSENT: homicidal ideation, suicidal ideation Skin exam: PRESENT: dry, intact, warm. ABSENT: cyanosis, rash Results Laboratory Results: 09/13/17 05:00 09/13/17 05:00 08/21/17 03:45 Creatine Kinase 586 H Impressions: Chest X-Ray 08/20/17 23:09 IMPRESSION: No acute cardiopulmonary findings. Abdomen/Pelvis CT 08/20/17 23:35 IMPRESSION: Moderate dilation of the renal collecting system. Differential diagnosis includes bladder outlet obstruction/dysfunction. Cervical Spine CT 08/21/17 00:00 IMPRESSION: CHRONIC DEGENERATIVE CHANGES. NO ACUTE FINDINGS. Head CT 08/21/17 00:00 IMPRESSION: MILD CHRONIC CHANGES OF ATROPHY AND MICROVASCULAR ISCHEMIA. NO ACUTE PROCESS. EVIDENCE OF ACUTE STROKE: NO. Renal Ultrasound 08/21/17 00:00 IMPRESSION: UNREMARKABLE RENAL AND BLADDER ULTRASOUND. HYDRONEPHROSIS SEEN ON RECENT CT HAS IMPROVED. THIS PROBABLY WAS DUE TO DISTENDED BLADDER WHICH HAS RESOLVED WITH PLACEMENT OF YEPEZ CATHETER. Shoulder X-Ray 08/30/17 00:00 IMPRESSION: No acute fracture or malalignment Assessment & Plan - Diagnosis (1) Debility Is this a current diagnosis for this admission?: Yes Plan: PT/OT evaluation and treatment. (2) Hypomagnesemia Is this a current diagnosis for this admission?: Yes Plan: Resolved. (3) Acute hypernatremia Is this a current diagnosis for this admission?: Yes Plan: Resolved. (4) Acute renal failure Qualifiers: Acute renal failure type: unspecified Qualified Code(s): N17.9 - Acute kidney failure, unspecified Is this a current diagnosis for this admission?: Yes Plan: Secondary to Dehydration: Resolved. (5) Anemia Qualifiers: Anemia type: unspecified type Qualified Code(s): D64.9 - Anemia, unspecified Is this a current diagnosis for this admission?: Yes Plan: Most likely of Chronic Disease: will continue iron replacement. (6) BPH (benign prostatic hyperplasia) Qualifiers: Lower urinary tract symptom detail: urinary obstruction Is this a current diagnosis for this admission?: Yes Plan: Yepez in place due to urinary retention. Urine culture no growth. (7) Bacteremia Is this a current diagnosis for this admission?: Yes Plan: Ruled out: Contaminant. (8) C. difficile diarrhea Is this a current diagnosis for this admission?: Yes Plan: Patient still is now formed. Patient has been off vancomycin and Flagyl treatment. Repeat C diff neg. (9) Hypokalemia due to loss of potassium Is this a current diagnosis for this admission?: Yes Plan: Resolved. (10) Neuropathy Is this a current diagnosis for this admission?: Yes Plan: supportive care (11) Sacral decubitus ulcer, stage IV Is this a current diagnosis for this admission?: Yes Plan: Status post debridement by surgery: We will continue with wound care. Surgery debrided patient's wound on 09/15/2017. (12) Wheezing Is this a current diagnosis for this admission?: Yes Plan: Etiology unclear: We will place patient on as needed breathing treatments. Will continue Pulmicort. Patient will need to follow-up with pulmonary as outpatient for Formal lung function test. (13) Bursitis of left shoulder Is this a current diagnosis for this admission?: Yes Plan: Physicial Therapy. Resolving. Patient able to move left upper extremity more. Patient was placed on Neurontin to see if pain would improve by physician care for patient earlier during his hospital course. Have decreased dose down to once a day. (14) Atrial fibrillation Qualifiers: Atrial fibrillation type: chronic Qualified Code(s): I48.2 - Chronic atrial fibrillation Is this a current diagnosis for this admission?: No Plan: Continue metoprolol and aspirin. Patient high risk for falls. (15) Alkalosis Is this a current diagnosis for this admission?: Yes Plan: Most likely respiratory: We will check ABG. (16) DVT prophylaxis Is this a current diagnosis for this admission?: Yes Plan: SCDs - Time Time Spent with patient: 15-24 minutes
[2017-09-15 16:57] LABS: ARTERIAL BLOOD FIO2 3L; ARTERIAL BLOOD H2CO3 1.89 mmol/L (1.05-1.35); ARTERIAL BLOOD HCO3 34.3 mmol/L (20-26); ARTERIAL BLOOD O2 SATURATION 94.4 % (94-98); ARTERIAL BLOOD PCO2 62.9 mmHg (35-45); ARTERIAL BLOOD PH 7.35 (7.35-7.45); ARTERIAL BLOOD PO2 76.5 mmHg (80-100); ARTERIAL BLOOD TOTAL CO2 36.2 mmol/L (23-27)
[2017-09-15] MEDS: TRAZODONE HCL 50 MG TABLET PO SCH (23:03)
[2017-09-15] MEDS: PHARMACY COMMUNICATION ORDER MC SCH (23:11)
[2017-09-16] MEDS: LANSOPRAZOLE 15 MG TAB.RAP.DR PO SCH (06:43)
[2017-09-16] MEDS: ACETAMINOPHEN 325 MG TABLET PO SCH ×3 (06:43→21:43)
[2017-09-16] MEDS: BUDESONIDE NEB 0.5 MG/2 ML AMPUL NEB SCH ×2 (08:42→20:00)
[2017-09-16] MEDS: FINASTERIDE 5 MG TABLET PO SCH (11:06)
[2017-09-16] MEDS: ASPIRIN 325 MG TABLET PO SCH (11:06)
[2017-09-16] MEDS: IRON POLYSACCHARIDES COMPLEX 150 MG CAPSULE PO SCH (11:06)
[2017-09-16] MEDS: GABAPENTIN 100 MG CAPSULE PO SCH (11:06)
[2017-09-16] MEDS: MULTIVITAMIN TABLET PO SCH (11:06)
[2017-09-16] MEDS: CHOLECALCIFEROL (D3) 1,000 UNIT TABLET PO SCH (11:06)
[2017-09-16] MEDS: ASCORBIC ACID 500 MG TABLET PO SCH (11:07)
[2017-09-16] MEDS: CYANOCOBALAMIN (VITAMIN B-12) INJ 1000 MCG/1 ML VIAL IM SCH (11:09)
[2017-09-16] MEDS: LACTOBACILLUS ACIDOPHILUS 250 MG TAB PO SCH ×2 (11:09→18:54)
[2017-09-16] MEDS: NYSTATIN TOPICAL POWDER 15 GM TP SCH ×3 (11:09→18:54)
[2017-09-16] MEDS: LIDOCAINE 5% (700 MG) TRANSDERMAL ADH..PATCH TP SCH (11:09)
[2017-09-16] MEDS: METOPROLOL TARTRATE 25 MG TABLET PO SCH ×2 (11:09→21:43)
[2017-09-16] MEDS: COLLAGENASE CLOSTRIDIUM HIST. OINT 30 GM TP SCH (11:10)
--- NOTE | 2017-09-16 15:10 | PDOC PROGRESS REPORT ---
Subjective Progress Note for:: 09/16/17 Subjective:: No acute issues. Reason For Visit: DECUBITUS ULCERS,RENAL FAILURE,HYPERKALEMIA Physical Exam Vital Signs: Temp Pulse Resp BP Pulse Ox 98.5 F 69 24 H 156/76 H 100 09/16/17 11:45 09/16/17 14:00 09/16/17 11:45 09/16/17 11:45 09/16/17 11:45 Intake & Output 09/15/17 09/16/17 09/17/17 05:59 06:59 06:59 Intake Total Output Total Balance Weight General appearance: PRESENT: no acute distress, well-developed, well-nourished Head exam: PRESENT: atraumatic, normocephalic Eye exam: PRESENT: conjunctiva pink, EOMI. ABSENT: scleral icterus Ear exam: PRESENT: normal external ear exam Mouth exam: PRESENT: moist, tongue midline Neck exam: ABSENT: carotid bruit, JVD, lymphadenopathy, thyromegaly Respiratory exam: PRESENT: clear to auscultation arash. ABSENT: rales, rhonchi, wheezes Cardiovascular exam: PRESENT: RRR. ABSENT: diastolic murmur, rubs, systolic murmur Pulses: PRESENT: normal dorsalis pedis pul Vascular exam: PRESENT: normal capillary refill GI/Abdominal exam: PRESENT: normal bowel sounds, soft. ABSENT: distended, guarding, mass, organolmegaly, rebound, tenderness Rectal exam: PRESENT: deferred Extremities exam: PRESENT: pedal edema. ABSENT: calf tenderness, clubbing Neurological exam: PRESENT: alert, awake, oriented to person, oriented to place , oriented to time, oriented to situation, CN II-XII grossly intact. ABSENT: motor sensory deficit Psychiatric exam: PRESENT: appropriate affect, normal mood. ABSENT: homicidal ideation, suicidal ideation Skin exam: PRESENT: dry, intact, warm. ABSENT: cyanosis, rash Results Laboratory Results: 09/13/17 05:00 09/13/17 05:00 09/15/17 16:40 Carbonic Acid 1.89 H HCO3/H2CO3 Ratio 18:1 ABG pH 7.35 ABG pCO2 62.9 H ABG pO2 76.5 L ABG HCO3 34.3 H ABG O2 Saturation 94.4 ABG Base Excess 7.0 FiO2 3L 08/21/17 03:45 Creatine Kinase 586 H Impressions: Chest X-Ray 08/20/17 23:09 IMPRESSION: No acute cardiopulmonary findings. Abdomen/Pelvis CT 08/20/17 23:35 IMPRESSION: Moderate dilation of the renal collecting system. Differential diagnosis includes bladder outlet obstruction/dysfunction. Cervical Spine CT 08/21/17 00:00 IMPRESSION: CHRONIC DEGENERATIVE CHANGES. NO ACUTE FINDINGS. Head CT 08/21/17 00:00 IMPRESSION: MILD CHRONIC CHANGES OF ATROPHY AND MICROVASCULAR ISCHEMIA. NO ACUTE PROCESS. EVIDENCE OF ACUTE STROKE: NO. Renal Ultrasound 08/21/17 00:00 IMPRESSION: UNREMARKABLE RENAL AND BLADDER ULTRASOUND. HYDRONEPHROSIS SEEN ON RECENT CT HAS IMPROVED. THIS PROBABLY WAS DUE TO DISTENDED BLADDER WHICH HAS RESOLVED WITH PLACEMENT OF YEPEZ CATHETER. Shoulder X-Ray 08/30/17 00:00 IMPRESSION: No acute fracture or malalignment Assessment & Plan - Diagnosis (1) Debility Is this a current diagnosis for this admission?: Yes Plan: PT/OT evaluation and treatment. (2) Hypomagnesemia Is this a current diagnosis for this admission?: Yes Plan: Resolved. (3) Acute hypernatremia Is this a current diagnosis for this admission?: Yes Plan: Resolved. (4) Acute renal failure Qualifiers: Acute renal failure type: unspecified Qualified Code(s): N17.9 - Acute kidney failure, unspecified Is this a current diagnosis for this admission?: Yes Plan: Secondary to Dehydration: Resolved. (5) Anemia Qualifiers: Anemia type: unspecified type Qualified Code(s): D64.9 - Anemia, unspecified Is this a current diagnosis for this admission?: Yes Plan: Most likely of Chronic Disease: will continue iron replacement. (6) BPH (benign prostatic hyperplasia) Qualifiers: Lower urinary tract symptom detail: urinary obstruction Is this a current diagnosis for this admission?: Yes Plan: Yepez in place due to urinary retention. Urine culture no growth. Will add tamsulosin. Will attempt bladder training. (7) Bacteremia Is this a current diagnosis for this admission?: Yes Plan: Ruled out: Contaminant. (8) C. difficile diarrhea Is this a current diagnosis for this admission?: Yes Plan: Patient still is now formed. Patient has been off vancomycin and Flagyl treatment. Repeat C diff neg. (9) Hypokalemia due to loss of potassium Is this a current diagnosis for this admission?: Yes Plan: Resolved. (10) Neuropathy Is this a current diagnosis for this admission?: Yes Plan: supportive care (11) Sacral decubitus ulcer, stage IV Is this a current diagnosis for this admission?: Yes Plan: Status post debridement by surgery: We will continue with wound care. Surgery debrided patient's wound on 09/15/2017. (12) Wheezing Is this a current diagnosis for this admission?: Yes Plan: Etiology unclear: We will place patient on as needed breathing treatments. Will continue Pulmicort. Patient will need to follow-up with pulmonary as outpatient for Formal lung function test. (13) Bursitis of left shoulder Is this a current diagnosis for this admission?: Yes Plan: Physicial Therapy. Resolving. Patient able to move left upper extremity more. (14) Atrial fibrillation Qualifiers: Atrial fibrillation type: chronic Qualified Code(s): I48.2 - Chronic atrial fibrillation Is this a current diagnosis for this admission?: No Plan: Continue metoprolol and aspirin. Patient high risk for falls. (15) Alkalosis Is this a current diagnosis for this admission?: Yes Plan: Most likely respiratory: Patient's ABG demonstrates compensated respiratory Alkalosis. Pt most likely has SARA. Will continue to monitor. Will need outpatient sleep study. (16) DVT prophylaxis Is this a current diagnosis for this admission?: Yes Plan: SCDs
[2017-09-16] MEDS ORDERED: TAMSULOSIN HCL 0.4 MG CAP.SR.24H PO ONE (16:00)
[2017-09-16] MEDS: ALBUTEROL SULFATE 0.083% NEB 2.5 MG/3 ML AMPUL NEB PRN (20:00)
[2017-09-16] MEDS: TRAZODONE HCL 50 MG TABLET PO SCH (21:43)
[2017-09-16] MEDS: PHARMACY COMMUNICATION ORDER MC SCH (21:58)
[2017-09-17] MEDS: ACETAMINOPHEN 325 MG TABLET PO SCH ×3 (06:00→22:32)
[2017-09-17] MEDS: LANSOPRAZOLE 15 MG TAB.RAP.DR PO SCH (06:00)
[2017-09-17] MEDS: BUDESONIDE NEB 0.5 MG/2 ML AMPUL NEB SCH ×2 (08:35→19:54)
[2017-09-17] MEDS: ALBUTEROL SULFATE 0.083% NEB 2.5 MG/3 ML AMPUL NEB PRN (08:35)
[2017-09-17] MEDS: CYANOCOBALAMIN (VITAMIN B-12) INJ 1000 MCG/1 ML VIAL IM SCH (10:26)
[2017-09-17] MEDS: ASPIRIN 325 MG TABLET PO SCH (10:26)
[2017-09-17] MEDS: LIDOCAINE 5% (700 MG) TRANSDERMAL ADH..PATCH TP SCH (10:26)
[2017-09-17] MEDS: ASCORBIC ACID 500 MG TABLET PO SCH (10:26)
[2017-09-17] MEDS: CHOLECALCIFEROL (D3) 1,000 UNIT TABLET PO SCH (10:26)
[2017-09-17] MEDS: LACTOBACILLUS ACIDOPHILUS 250 MG TAB PO SCH ×2 (10:26→17:47)
[2017-09-17] MEDS: MULTIVITAMIN TABLET PO SCH (10:26)
[2017-09-17] MEDS: IRON POLYSACCHARIDES COMPLEX 150 MG CAPSULE PO SCH (10:26)
[2017-09-17] MEDS: FINASTERIDE 5 MG TABLET PO SCH (10:26)
[2017-09-17] MEDS: METOPROLOL TARTRATE 25 MG TABLET PO SCH ×2 (10:33→22:32)
[2017-09-17] MEDS: NYSTATIN TOPICAL POWDER 15 GM TP SCH ×3 (10:33→17:47)
[2017-09-17] MEDS: COLLAGENASE CLOSTRIDIUM HIST. OINT 30 GM TP SCH (10:33)
[2017-09-17 10:53] LABS: APPEARANCE,URINE SLIGHTLY-CLOUDY; BILIRUBIN,URINE NEGATIVE (NEGATIVE); COLOR,URINE YELLOW; GLUCOSE, URINE NEGATIVE (NEGATIVE); KETONES,URINE NEGATIVE (NEGATIVE); LEUKOCYTE ESTERASE,URINE NEGATIVE (NEGATIVE); NITRITE,URINE NEGATIVE (NEGATIVE); PROTEIN,URINE NEGATIVE (NEGATIVE); URINE SPECIFIC GRAVITY 1.013; UROBILINOGEN,URINE NEGATIVE mg/dL (<2.0)
[2017-09-17] MEDS: TAMSULOSIN HCL 0.4 MG CAP.SR.24H PO SCH (17:47)
--- NOTE | 2017-09-17 17:54 | PDOC PROGRESS REPORT ---
Subjective Progress Note for:: 09/17/17 Subjective:: Pt states that he is having pain in his legs. Nursing states that pt was a little confused today. Reason For Visit: DECUBITUS ULCERS,RENAL FAILURE,HYPERKALEMIA Physical Exam Vital Signs: Temp Pulse Resp BP Pulse Ox 97.5 F 72 28 H 137/53 H 99 09/17/17 17:10 09/17/17 17:10 09/17/17 17:10 09/17/17 17:10 09/17/17 17:10 Intake & Output 09/16/17 09/17/17 09/18/17 06:59 06:59 06:59 Intake Total 1620 Output Total 1630 Balance -10 Weight 112.6 kg General appearance: PRESENT: no acute distress, well-developed, well-nourished Head exam: PRESENT: atraumatic, normocephalic Eye exam: PRESENT: conjunctiva pink, EOMI. ABSENT: scleral icterus Ear exam: PRESENT: normal external ear exam Mouth exam: PRESENT: moist, tongue midline Neck exam: ABSENT: carotid bruit, JVD, lymphadenopathy, thyromegaly Respiratory exam: PRESENT: clear to auscultation arash. ABSENT: rales, rhonchi, wheezes Cardiovascular exam: PRESENT: RRR. ABSENT: diastolic murmur, rubs, systolic murmur Pulses: PRESENT: normal dorsalis pedis pul Vascular exam: PRESENT: normal capillary refill GI/Abdominal exam: PRESENT: normal bowel sounds, soft. ABSENT: distended, guarding, mass, organolmegaly, rebound, tenderness Rectal exam: PRESENT: deferred Extremities exam: ABSENT: calf tenderness, clubbing, pedal edema Neurological exam: PRESENT: alert, awake, oriented to person, oriented to place , oriented to time, oriented to situation. ABSENT: motor sensory deficit Psychiatric exam: PRESENT: appropriate affect, normal mood. ABSENT: homicidal ideation, suicidal ideation Skin exam: PRESENT: dry, intact, warm. ABSENT: cyanosis, rash Results Laboratory Results: 09/13/17 05:00 09/13/17 05:00 09/17/17 10:30 Urine Color YELLOW Urine Appearance SLIGHTLY-CLOUDY Urine pH 5.0 Ur Specific [place] 1.013 Urine Protein NEGATIVE Urine Glucose (UA) NEGATIVE Urine Ketones NEGATIVE Urine Blood NEGATIVE Urine Nitrite NEGATIVE Ur Leukocyte Esterase NEGATIVE Urine WBC (Auto) 7 Urine RBC (Auto) 3 08/21/17 03:45 Creatine Kinase 586 H Impressions: Chest X-Ray 08/20/17 23:09 IMPRESSION: No acute cardiopulmonary findings. Abdomen/Pelvis CT 08/20/17 23:35 IMPRESSION: Moderate dilation of the renal collecting system. Differential diagnosis includes bladder outlet obstruction/dysfunction. Cervical Spine CT 08/21/17 00:00 IMPRESSION: CHRONIC DEGENERATIVE CHANGES. NO ACUTE FINDINGS. Head CT 08/21/17 00:00 IMPRESSION: MILD CHRONIC CHANGES OF ATROPHY AND MICROVASCULAR ISCHEMIA. NO ACUTE PROCESS. EVIDENCE OF ACUTE STROKE: NO. Renal Ultrasound 08/21/17 00:00 IMPRESSION: UNREMARKABLE RENAL AND BLADDER ULTRASOUND. HYDRONEPHROSIS SEEN ON RECENT CT HAS IMPROVED. THIS PROBABLY WAS DUE TO DISTENDED BLADDER WHICH HAS RESOLVED WITH PLACEMENT OF YEPEZ CATHETER. Shoulder X-Ray 08/30/17 00:00 IMPRESSION: No acute fracture or malalignment Assessment & Plan - Diagnosis (1) Debility Is this a current diagnosis for this admission?: Yes Plan: PT/OT evaluation and treatment. (2) Hypomagnesemia Is this a current diagnosis for this admission?: Yes Plan: Resolved. (3) Acute hypernatremia Is this a current diagnosis for this admission?: Yes Plan: Resolved. (4) Acute renal failure Qualifiers: Acute renal failure type: unspecified Qualified Code(s): N17.9 - Acute kidney failure, unspecified Is this a current diagnosis for this admission?: Yes Plan: Secondary to Dehydration: Resolved. (5) Anemia Qualifiers: Anemia type: unspecified type Qualified Code(s): D64.9 - Anemia, unspecified Is this a current diagnosis for this admission?: Yes Plan: Most likely of Chronic Disease: will continue iron replacement. (6) BPH (benign prostatic hyperplasia) Qualifiers: Lower urinary tract symptom detail: urinary obstruction Is this a current diagnosis for this admission?: Yes Plan: Yepez in place due to urinary retention. Urine culture no growth. Finasteride and tamsulosin. UA demonstrates no evidence of UTI. Urine culture pending. (7) Bacteremia Is this a current diagnosis for this admission?: Yes Plan: Ruled out: Contaminant. (8) C. difficile diarrhea Is this a current diagnosis for this admission?: Yes Plan: Patient still is now formed. Patient has been off vancomycin and Flagyl treatment. Repeat C diff neg. (9) Hypokalemia due to loss of potassium Is this a current diagnosis for this admission?: Yes Plan: Resolved. (10) Neuropathy Is this a current diagnosis for this admission?: Yes Plan: supportive care (11) Sacral decubitus ulcer, stage IV Is this a current diagnosis for this admission?: Yes Plan: Status post debridement by surgery: We will continue with wound care. Surgery debrided patient's wound on 09/15/2017. (12) Wheezing Is this a current diagnosis for this admission?: Yes Plan: Etiology unclear: We will place patient on as needed breathing treatments. Will continue Pulmicort. Patient will need to follow-up with pulmonary as outpatient for Formal lung function test. (13) Bursitis of left shoulder Is this a current diagnosis for this admission?: Yes Plan: Physicial Therapy. Resolving. Patient able to move left upper extremity more. (14) SARA (obstructive sleep apnea) Is this a current diagnosis for this admission?: Yes Plan: Pt most likely has SARA. Will write for BIPAP. (15) Atrial fibrillation Qualifiers: Atrial fibrillation type: chronic Qualified Code(s): I48.2 - Chronic atrial fibrillation Is this a current diagnosis for this admission?: No Plan: Continue metoprolol and aspirin. Patient high risk for falls. (16) Alkalosis Is this a current diagnosis for this admission?: Yes Plan: Most likely respiratory: Patient's ABG demonstrates compensated respiratory Alkalosis. Pt most likely has SARA. Will continue to monitor. Will need outpatient sleep study. Will repeat to see if pt is retaining CO2 if so will place on BIPAP /. (17) DVT prophylaxis Is this a current diagnosis for this admission?: Yes Plan: SCDs - Time Time Spent with patient: 15-24 minutes
[2017-09-17] MEDS: TRAZODONE HCL 50 MG TABLET PO SCH (22:32)
[2017-09-17] MEDS: PHARMACY COMMUNICATION ORDER MC SCH (22:34)
[2017-09-18] MEDS: ACETAMINOPHEN 325 MG TABLET PO SCH ×3 (06:48→22:03)
[2017-09-18] MEDS: LANSOPRAZOLE 15 MG TAB.RAP.DR PO SCH (06:48)
[2017-09-18] MEDS: BUDESONIDE NEB 0.5 MG/2 ML AMPUL NEB SCH ×2 (08:35→19:59)
[2017-09-18] MEDS: ALBUTEROL SULFATE 0.083% NEB 2.5 MG/3 ML AMPUL NEB PRN ×2 (08:35→22:24)
[2017-09-18] MEDS: LACTOBACILLUS ACIDOPHILUS 250 MG TAB PO SCH ×2 (10:42→17:55)
[2017-09-18] MEDS: METOPROLOL TARTRATE 25 MG TABLET PO SCH ×2 (10:42→22:04)
[2017-09-18] MEDS: IRON POLYSACCHARIDES COMPLEX 150 MG CAPSULE PO SCH (10:42)
[2017-09-18] MEDS: FINASTERIDE 5 MG TABLET PO SCH (10:42)
[2017-09-18] MEDS: ASPIRIN 325 MG TABLET PO SCH (10:42)
[2017-09-18] MEDS: LIDOCAINE 5% (700 MG) TRANSDERMAL ADH..PATCH TP SCH (10:48)
[2017-09-18] MEDS: MULTIVITAMIN TABLET PO SCH (10:48)
[2017-09-18] MEDS: CYANOCOBALAMIN (VITAMIN B-12) INJ 1000 MCG/1 ML VIAL IM SCH (10:48)
[2017-09-18] MEDS: COLLAGENASE CLOSTRIDIUM HIST. OINT 30 GM TP SCH (10:48)
[2017-09-18] MEDS: CHOLECALCIFEROL (D3) 1,000 UNIT TABLET PO SCH (10:48)
[2017-09-18] MEDS: NYSTATIN TOPICAL POWDER 15 GM TP SCH ×3 (10:48→17:55)
[2017-09-18] MEDS: ASCORBIC ACID 500 MG TABLET PO SCH (10:48)
--- NOTE | 2017-09-18 16:15 | PDOC PROGRESS REPORT ---
Subjective Progress Note for:: 09/18/17 Subjective:: Pt was upset this morning because he did not understand why he was getting these breathing treatments. Patient states that he has been wheezing but he has not been wheezing this morning. Patient states that the breathing treatments did help but he has never smoked in his life and he does not understand why he needs to use BiPAP. Reason For Visit: DECUBITUS ULCERS,RENAL FAILURE,HYPERKALEMIA Physical Exam Vital Signs: Temp Pulse Resp BP Pulse Ox 97.8 F 80 18 149/64 H 100 09/18/17 15:59 09/18/17 15:59 09/18/17 15:59 09/18/17 15:59 09/18/17 15:59 Intake & Output 09/17/17 09/18/17 09/19/17 06:59 06:59 06:59 Intake Total 1620 963 Output Total 1630 1800 Balance -10 -837 Weight 112.6 kg 112.4 kg General appearance: PRESENT: no acute distress, well-developed, well-nourished Head exam: PRESENT: atraumatic, normocephalic Eye exam: PRESENT: conjunctiva pink, EOMI. ABSENT: scleral icterus Ear exam: PRESENT: normal external ear exam Mouth exam: PRESENT: moist, tongue midline Neck exam: ABSENT: carotid bruit, JVD, lymphadenopathy, thyromegaly Respiratory exam: PRESENT: clear to auscultation arash, other - diminished at bases. ABSENT: rales, rhonchi, wheezes Cardiovascular exam: PRESENT: RRR. ABSENT: diastolic murmur, rubs, systolic murmur Pulses: PRESENT: normal dorsalis pedis pul Vascular exam: PRESENT: normal capillary refill GI/Abdominal exam: PRESENT: normal bowel sounds, soft. ABSENT: distended, guarding, mass, organolmegaly, rebound, tenderness Rectal exam: PRESENT: deferred Extremities exam: ABSENT: calf tenderness, clubbing, pedal edema Neurological exam: PRESENT: alert, awake, oriented to person, oriented to place , oriented to time, oriented to situation, CN II-XII grossly intact. ABSENT: motor sensory deficit Psychiatric exam: PRESENT: appropriate affect, normal mood. ABSENT: homicidal ideation, suicidal ideation Skin exam: PRESENT: dry, intact, warm. ABSENT: cyanosis, rash Results Laboratory Results: 09/13/17 05:00 09/13/17 05:00 08/21/17 03:45 Creatine Kinase 586 H Impressions: Chest X-Ray 08/20/17 23:09 IMPRESSION: No acute cardiopulmonary findings. Abdomen/Pelvis CT 08/20/17 23:35 IMPRESSION: Moderate dilation of the renal collecting system. Differential diagnosis includes bladder outlet obstruction/dysfunction. Cervical Spine CT 08/21/17 00:00 IMPRESSION: CHRONIC DEGENERATIVE CHANGES. NO ACUTE FINDINGS. Head CT 08/21/17 00:00 IMPRESSION: MILD CHRONIC CHANGES OF ATROPHY AND MICROVASCULAR ISCHEMIA. NO ACUTE PROCESS. EVIDENCE OF ACUTE STROKE: NO. Renal Ultrasound 08/21/17 00:00 IMPRESSION: UNREMARKABLE RENAL AND BLADDER ULTRASOUND. HYDRONEPHROSIS SEEN ON RECENT CT HAS IMPROVED. THIS PROBABLY WAS DUE TO DISTENDED BLADDER WHICH HAS RESOLVED WITH PLACEMENT OF YEPEZ CATHETER. Shoulder X-Ray 08/30/17 00:00 IMPRESSION: No acute fracture or malalignment Assessment & Plan - Diagnosis (1) Debility Is this a current diagnosis for this admission?: Yes Plan: PT/OT evaluation and treatment. (2) Hypomagnesemia Is this a current diagnosis for this admission?: Yes Plan: Resolved. (3) Acute hypernatremia Is this a current diagnosis for this admission?: Yes Plan: Resolved. (4) Acute renal failure Qualifiers: Acute renal failure type: unspecified Qualified Code(s): N17.9 - Acute kidney failure, unspecified Is this a current diagnosis for this admission?: Yes Plan: Secondary to Dehydration: Resolved. (5) Anemia Qualifiers: Anemia type: unspecified type Qualified Code(s): D64.9 - Anemia, unspecified Is this a current diagnosis for this admission?: Yes Plan: Most likely of Chronic Disease: will continue iron replacement. (6) BPH (benign prostatic hyperplasia) Qualifiers: Lower urinary tract symptom detail: urinary obstruction Is this a current diagnosis for this admission?: Yes Plan: Yepez in place due to urinary retention. Urine culture no growth. Finasteride and tamsulosin. UA demonstrates no evidence of UTI. Urine culture no growth. (7) Bacteremia Is this a current diagnosis for this admission?: Yes Plan: Ruled out: Contaminant. (8) C. difficile diarrhea Is this a current diagnosis for this admission?: Yes Plan: Patient still is now formed. Patient has been off vancomycin and Flagyl treatment. Repeat C diff neg. (9) Hypokalemia due to loss of potassium Is this a current diagnosis for this admission?: Yes Plan: Resolved. (10) Neuropathy Is this a current diagnosis for this admission?: Yes Plan: supportive care (11) Sacral decubitus ulcer, stage IV Is this a current diagnosis for this admission?: Yes Plan: Status post debridement by surgery: We will continue with wound care. Surgery debrided patient's wound on 09/15/2017. (12) Wheezing Is this a current diagnosis for this admission?: Yes Plan: Etiology unclear: We will place patient on as needed breathing treatments. Will continue Pulmicort. Patient will need to follow-up with pulmonary as outpatient for Formal lung function test. (13) Bursitis of left shoulder Is this a current diagnosis for this admission?: Yes Plan: Physicial Therapy. Resolving. Patient able to move left upper extremity more. (14) SARA (obstructive sleep apnea) Is this a current diagnosis for this admission?: Yes Plan: Pt most likely has SARA. Will continue BIPAP. (15) Atrial fibrillation Qualifiers: Atrial fibrillation type: chronic Qualified Code(s): I48.2 - Chronic atrial fibrillation Is this a current diagnosis for this admission?: No Plan: Continue metoprolol and aspirin. Patient high risk for falls. (16) Alkalosis Is this a current diagnosis for this admission?: Yes Plan: Most likely respiratory: Patient's ABG demonstrates compensated respiratory Alkalosis. Pt most likely has ASRA. Will continue to monitor. Will need outpatient sleep study. Will continue BIPAP. (17) DVT prophylaxis Is this a current diagnosis for this admission?: Yes Plan: SCDs - Time Time Spent with patient: 15-24 minutes
[2017-09-18] MEDS: TAMSULOSIN HCL 0.4 MG CAP.SR.24H PO SCH (17:55)
[2017-09-18] MEDS: TRAZODONE HCL 50 MG TABLET PO SCH (22:04)
[2017-09-18] MEDS: PHARMACY COMMUNICATION ORDER MC SCH (22:12)
[2017-09-19] MEDS: LANSOPRAZOLE 15 MG TAB.RAP.DR PO SCH (05:30)
[2017-09-19] MEDS: ACETAMINOPHEN 325 MG TABLET PO SCH ×3 (05:30→23:39)
[2017-09-19 06:26] LABS: ABSOLUTE BASOPHILS # (AUTO) 0.1 10^3/uL (0.0-0.2); ABSOLUTE EOSINOPHILS # (AUTO) 0.2 10^3/uL (0.0-0.6); ABSOLUTE LYMPHOCYTES (AUTO) 1.2 10^3/uL (0.5-4.7); ABSOLUTE MONOCYTES (AUTO) 1.2 10^3/uL (0.1-1.4); ABSOLUTE NEUT (AUTO) 10.4 10^3/uL (1.7-8.2); BASOPHILS % (AUTO) 0.7 % (0-2); EOSINOPHILS % (AUTO) 1.3 % (0-6); HEMATOCRIT 31.5 % (37.9-51.0); HEMOGLOBIN 10.2 g/dL (13.5-17.0); LYMPHOCYTES % (AUTO) 9.4 % (13-45); MEAN CORPUSCULAR HEMOGLOBIN 29.7 pg (27.0-33.4); MEAN CORPUSCULAR HGB CONC 32.4 g/dL (32.0-36.0); MEAN CORPUSCULAR VOLUME 92 fl (80-97); MONOCYTES % (AUTO) 9.1 % (3-13); PLATELET COUNT 258 10^3/uL (150-450); RED BLOOD COUNT 3.44 10^6/uL (4.35-5.55); RED CELL DISTRIBUTION WIDTH 15.1 % (11.5-14.0); SEGMENTED NEUTROPHILS % (AUTO) 79.5 % (42-78); TOTAL CELLS COUNTED % (AUTO) 100 %; WHITE BLOOD COUNT 13.1 10^3/uL (4.0-10.5)
[2017-09-19 06:44] LABS: ALANINE AMINOTRANSFERASE 23 U/L (21-72); ALKALINE PHOSPHATASE 119 U/L (38-126); ANION GAP 7 (5-19); ASPARTATE AMINO TRANSFERASE 15 U/L (17-59); BILIRUBIN,DIRECT 0.2 mg/dL (0.0-0.4); BILIRUBIN,TOTAL 0.3 mg/dL (0.2-1.3); BLOOD UREA NITROGEN 18 mg/dL (7-20); CALCIUM 8.9 mg/dL (8.4-10.2); CARBON DIOXIDE 39 mmol/L (22-30); CHLORIDE 94 mmol/L (98-107); GLUCOSE 121 mg/dL (75-110); POTASSIUM 4.1 mmol/L (3.6-5.0); SODIUM 139.9 mmol/L (137-145); TOTAL PROTEIN 6.4 g/dL (6.3-8.2)
[2017-09-19] MEDS: ALBUTEROL SULFATE 0.083% NEB 2.5 MG/3 ML AMPUL NEB PRN (08:38)
[2017-09-19] MEDS: BUDESONIDE NEB 0.5 MG/2 ML AMPUL NEB SCH ×2 (08:38→20:40)
[2017-09-19] MEDS ORDERED: TRAMADOL HCL 50 MG TABLET PO PRN (09:37)
[2017-09-19] MEDS: ASPIRIN 325 MG TABLET PO SCH (10:35)
[2017-09-19] MEDS: CYANOCOBALAMIN (VITAMIN B-12) INJ 1000 MCG/1 ML VIAL IM SCH (10:35)
[2017-09-19] MEDS: METOPROLOL TARTRATE 25 MG TABLET PO SCH ×2 (10:36→23:39)
[2017-09-19] MEDS: LACTOBACILLUS ACIDOPHILUS 250 MG TAB PO SCH ×2 (10:36→17:44)
[2017-09-19] MEDS: COLLAGENASE CLOSTRIDIUM HIST. OINT 30 GM TP SCH (10:38)
[2017-09-19] MEDS: IRON POLYSACCHARIDES COMPLEX 150 MG CAPSULE PO SCH (10:39)
[2017-09-19] MEDS: NYSTATIN TOPICAL POWDER 15 GM TP SCH ×3 (10:40→17:44)
[2017-09-19] MEDS: FINASTERIDE 5 MG TABLET PO SCH (10:41)
[2017-09-19] MEDS: ASCORBIC ACID 500 MG TABLET PO SCH (10:41)
[2017-09-19] MEDS: LIDOCAINE 5% (700 MG) TRANSDERMAL ADH..PATCH TP SCH (10:41)
[2017-09-19] MEDS: CHOLECALCIFEROL (D3) 1,000 UNIT TABLET PO SCH (10:41)
[2017-09-19] MEDS: MULTIVITAMIN TABLET PO SCH (10:41)
[2017-09-19] MEDS: CHOLESTYRAMINE/ASPARTAME 4 GM PACKET PO SCH ×3 (16:09→23:39)
[2017-09-19] MEDS: TAMSULOSIN HCL 0.4 MG CAP.SR.24H PO SCH (17:44)
--- NOTE | 2017-09-19 17:44 | PDOC PROGRESS REPORT ---
Subjective Progress Note for:: 09/19/17 Subjective:: 87-year-old male with a significant stage IV sacral ulcer currently receiving wet-to-dry dressing. Found to have liquid stool in his ulceration this morning. Notified nursing for wound cleaning up. Patient will need to be closely monitored given the the ease of reinfection in this area. She complains of diffuse pain limiting his mobility. Patient should continue working with physical therapy. Reason For Visit: DECUBITUS ULCERS,RENAL FAILURE,HYPERKALEMIA Physical Exam Vital Signs: Temp Pulse Resp BP Pulse Ox 97.9 F 100 18 145/69 H 98 09/19/17 12:28 09/19/17 14:00 09/19/17 08:19 09/19/17 12:28 09/19/17 12:28 Intake & Output 09/18/17 09/19/17 09/20/17 06:59 06:59 06:59 Intake Total 963 724 835 Output Total 1800 1400 500 Balance -837 -676 335 Weight 112.4 kg 112.5 kg General appearance: PRESENT: no acute distress, cooperative, morbidly obese Head exam: PRESENT: atraumatic, normocephalic Eye exam: PRESENT: EOMI, PERRLA Ear exam: PRESENT: normal external ear exam. ABSENT: bleeding Mouth exam: PRESENT: moist, neck supple, tongue midline Throat exam: ABSENT: post pharyngeal erythema, tonsillar erythema Neck exam: PRESENT: lymphadenopathy. ABSENT: tenderness, thyromegaly Respiratory exam: ABSENT: accessory muscle use, chest wall tenderness, crackles Cardiovascular exam: PRESENT: +S1, +S2. ABSENT: diastolic murmur, gallop, tachycardia Pulses: PRESENT: normal radial pulses Vascular exam: PRESENT: normal capillary refill. ABSENT: pallor GI/Abdominal exam: PRESENT: normal bowel sounds. ABSENT: ascites, distended Extremities exam: ABSENT: calf tenderness, pedal edema, tenderness Musculoskeletal exam: ABSENT: ambulatory - signficant tenderness in maniplulating his right shoulder, full ROM - tenderness on manipulation of right shoulder Neurological exam: PRESENT: altered, awake, oriented to person, oriented to place, oriented to time Psychiatric exam: PRESENT: appropriate affect. ABSENT: agitated, anxious, flat affect Focused psych exam: ABSENT: delusional, euphoric, paranoid, pressured speech, restlessness Skin exam: PRESENT: normal color. ABSENT: abrasion, cyanosis, jaundice Results Laboratory Results: 09/19/17 05:46 09/19/17 05:46 09/19/17 09/19/17 05:46 05:46 WBC 13.1 H RBC 3.44 L Hgb 10.2 L Hct 31.5 L MCV 92 MCH 29.7 MCHC 32.4 RDW 15.1 H Plt Count 258 Seg Neutrophils % 79.5 H Lymphocytes % 9.4 L Monocytes % 9.1 Eosinophils % 1.3 Basophils % 0.7 Absolute Neutrophils 10.4 H Absolute Lymphocytes 1.2 Absolute Monocytes 1.2 Absolute Eosinophils 0.2 Absolute Basophils 0.1 Sodium 139.9 Potassium 4.1 Chloride 94 L Carbon Dioxide 39 H Anion Gap 7 BUN 18 Creatinine 0.96 Est GFR ( Amer) > 60 Est GFR (Non-Af Amer) > 60 Glucose 121 H Calcium 8.9 Magnesium 1.9 Total Bilirubin 0.3 AST 15 L ALT 23 Alkaline Phosphatase 119 Total Protein 6.4 Albumin 3.0 L 09/17/17 10:30 Yepez Catheter Urine Culture - Final NO GROWTH 2 DAYS 08/21/17 03:45 Creatine Kinase 586 H Impressions: Chest X-Ray 08/20/17 23:09 IMPRESSION: No acute cardiopulmonary findings. Abdomen/Pelvis CT 08/20/17 23:35 IMPRESSION: Moderate dilation of the renal collecting system. Differential diagnosis includes bladder outlet obstruction/dysfunction. Cervical Spine CT 08/21/17 00:00 IMPRESSION: CHRONIC DEGENERATIVE CHANGES. NO ACUTE FINDINGS. Head CT 08/21/17 00:00 IMPRESSION: MILD CHRONIC CHANGES OF ATROPHY AND MICROVASCULAR ISCHEMIA. NO ACUTE PROCESS. EVIDENCE OF ACUTE STROKE: NO. Renal Ultrasound 08/21/17 00:00 IMPRESSION: UNREMARKABLE RENAL AND BLADDER ULTRASOUND. HYDRONEPHROSIS SEEN ON RECENT CT HAS IMPROVED. THIS PROBABLY WAS DUE TO DISTENDED BLADDER WHICH HAS RESOLVED WITH PLACEMENT OF YEPEZ CATHETER. Shoulder X-Ray 08/30/17 00:00 IMPRESSION: No acute fracture or malalignment Assessment & Plan - Plan Summary Plan Summary: 1. Sacral decubitus ulcer, stage IV On today's inspection patient had stool in his sacral decubitus ulcer. Stool was liquid in consistency, will start patient on Questran. Inform the nurse of the contaminated wound. Wound will be cleaned new wet-to-dry applied. mild elevation in Leukocytosis, check blood cultures x2 today. 2. Debility and deconditioning Patient has diffuse pain complaints limiting his mobility. PT/OT evaluations ordered. 3. C. difficile diarrhea Repeat C. difficile testing was negative. Patient did receive a course of vancomycin/Flagyl 4. Hypokalemia resolved 5. Bursitis of left shoulder Current pain medication 6. SARA, BiPAP when needed 7. Atrial fibrillation. Continue metoprolol for rate control. High falls risk no anticoagulation. 8. Anemia improved, monitor 9. Bacteremia, ruled out, likely contaminant. 10. Neuropathy. supportive care, limit sedating medications
[2017-09-19] MEDS: PHARMACY COMMUNICATION ORDER MC SCH (23:39)
[2017-09-19] MEDS: TRAZODONE HCL 50 MG TABLET PO SCH (23:39)
[2017-09-20] MEDS: ACETAMINOPHEN 325 MG TABLET PO SCH ×3 (06:29→22:49)
[2017-09-20] MEDS: BUDESONIDE NEB 0.5 MG/2 ML AMPUL NEB SCH ×2 (09:13→20:02)
[2017-09-20] MEDS: FINASTERIDE 5 MG TABLET PO SCH (10:12)
[2017-09-20] MEDS: METOPROLOL TARTRATE 25 MG TABLET PO SCH ×2 (10:13→22:49)
[2017-09-20] MEDS: LACTOBACILLUS ACIDOPHILUS 250 MG TAB PO SCH ×2 (10:13→18:29)
[2017-09-20] MEDS: CHOLESTYRAMINE/ASPARTAME 4 GM PACKET PO SCH ×4 (10:14→22:48)
[2017-09-20] MEDS: ASPIRIN 325 MG TABLET PO SCH (10:16)
[2017-09-20] MEDS: LIDOCAINE 5% (700 MG) TRANSDERMAL ADH..PATCH TP SCH (10:20)
[2017-09-20] MEDS: COLLAGENASE CLOSTRIDIUM HIST. OINT 30 GM TP SCH (10:21)
[2017-09-20] MEDS: MULTIVITAMIN TABLET PO SCH (10:23)
[2017-09-20] MEDS: NYSTATIN TOPICAL POWDER 15 GM TP SCH ×3 (10:23→18:34)
[2017-09-20] MEDS: CHOLECALCIFEROL (D3) 1,000 UNIT TABLET PO SCH (10:23)
[2017-09-20] MEDS: IRON POLYSACCHARIDES COMPLEX 150 MG CAPSULE PO SCH (10:23)
[2017-09-20] MEDS: TAMSULOSIN HCL 0.4 MG CAP.SR.24H PO SCH (18:30)
[2017-09-20] MEDS ORDERED: LABETALOL HCL INJ 20 MG/4 ML DISP.SYRIN IV ONE (19:58)
[2017-09-20] MEDS ORDERED: VANCOMYCIN HCL INJ 1000 MG VIAL IV ONE (19:58)
[2017-09-20] MEDS ORDERED: METHYLPREDNISOLONE INJ 125 MG/2 ML SDV ONE (19:59)
[2017-09-20] MEDS: IPRATROPIUM/ALBUTEROL 0.5-2.5 MG/3 ML AMPUL NEB SCH ×2 (20:03→23:21)
[2017-09-20] MEDS ORDERED: HYDRALAZINE HCL INJ/PF 20 MG/1 ML SDV IV PRN (20:04)
[2017-09-20] MEDS ORDERED: LABETALOL HCL INJ 20 MG/4 ML DISP.SYRIN IV PRN (20:06)
[2017-09-20] MEDS ORDERED: FUROSEMIDE INJ/PF 40 MG/4 ML SDV ONE (20:09)
[2017-09-20] MEDS ORDERED: VANCOMYCIN HCL 1,500 MG in DEXTROSE 5%-WATER 250 ML IV ONE (20:15)
--- NOTE | 2017-09-20 20:28 | RADIOLOGY REPORT (SQ) ---
EXAM DESCRIPTION: CHEST SINGLE VIEW COMPLETED DATE/TIME: 09/20/2017 8:16 pm REASON FOR STUDY: chest pain, low O2 COMPARISON: 08/20/2017 NUMBER OF VIEWS: One view. TECHNIQUE: Single frontal radiographic view of the chest acquired. LIMITATIONS: None. FINDINGS: LUNGS AND PLEURA: Moderate to large bilateral pleural effusions with associated airspace d isease presumably representing compressive atelectasis. MEDIASTINUM AND HILAR STRUCTURES: No masses or contour abnormality. HEART AND VASCULATURE: Stable. BONES: No acute findings. HARDWARE: None in the chest. OTHER: No other significant finding. IMPRESSION: INTERVAL DEVELOPMENT OF MODERATE TO LARGE BILATERAL PLEURAL EFFUSIONS WITH ASSOCIATED AI RSPACE DISEASE PRESUMABLY REPRESENTING SUBSEGMENTAL ATELECTASIS. SUPERIMPOSED PNEUMONIA CANNOT BE EX CLUDED. CORRELATE WITH FEVER/ ELEVATED WHITE BLOOD CELL COUNT. TECHNICAL DOCUMENTATION: JOB ID: [id number] [email or web address]- All Rights Reserved Reading location - IP/workstation name: [email or web address]
--- NOTE | 2017-09-20 20:39 | PDOC PROGRESS REPORT ---
Subjective Progress Note for:: 09/20/17 Subjective:: 87-year-old male with a significant stage IV sacral ulcer currently receiving wet-to-dry dressing. A rapid response was called on this patient. He had poor air movement on pulmonary exam. He was placed on bipap, given neb tx, 125mg of IV solumedrol. CXR showed bilateral pulmonary edema. He was treated with IV lasix and transfered to the ICU for overnight monitoring. Patient was reported as non- compliant with accepting his medications over the last day. Gradual increase in leukocytosis may be secondary to his pulmonary edema vs. pna vs. sacral wound with recent stool exposure. Will empirically treat with IV Flagyl and IV Vancomycin. Urine was noted to be foggy in appearance with sediment. Will be sent for UA and culture. Reason For Visit: DECUBITUS ULCERS,RENAL FAILURE,HYPERKALEMIA Physical Exam Vital Signs: Temp Pulse Resp BP Pulse Ox 97.3 F 74 16 139/67 H 100 09/20/17 15:43 09/20/17 15:43 09/20/17 15:43 09/20/17 15:43 09/20/17 15:43 Intake & Output 09/19/17 09/20/17 09/21/17 06:59 06:59 06:59 Intake Total 724 1035 300 Output Total 1400 800 Balance -676 235 300 Weight 112.5 kg 106.8 kg General appearance: PRESENT: severe distress. ABSENT: no acute distress Head exam: PRESENT: atraumatic, normocephalic Eye exam: PRESENT: EOMI, PERRLA. ABSENT: conjunctiva pink Mouth exam: PRESENT: moist, neck supple, tongue midline Neck exam: ABSENT: JVD, thyromegaly Respiratory exam: PRESENT: accessory muscle use, wheezes. ABSENT: crackles, rales Cardiovascular exam: PRESENT: RRR, +S1, +S2. ABSENT: bradycardia Vascular exam: PRESENT: normal capillary refill. ABSENT: pallor GI/Abdominal exam: ABSENT: ascites, distended, mass Extremities exam: ABSENT: calf tenderness, joint swelling, pedal edema Musculoskeletal exam: ABSENT: ambulatory, full ROM Neurological exam: PRESENT: awake, oriented to person, oriented to place, CN II- XII grossly intact Psychiatric exam: PRESENT: flat affect. ABSENT: agitated, anxious, manic Focused psych exam: ABSENT: catatonic, pressured speech Skin exam: PRESENT: abrasion. ABSENT: mottled, pallor Results Laboratory Results: 09/19/17 05:46 09/19/17 05:46 08/21/17 03:45 Creatine Kinase 586 H Impressions: Abdomen/Pelvis CT 08/20/17 23:35 IMPRESSION: Moderate dilation of the renal collecting system. Differential diagnosis includes bladder outlet obstruction/dysfunction. Cervical Spine CT 08/21/17 00:00 IMPRESSION: CHRONIC DEGENERATIVE CHANGES. NO ACUTE FINDINGS. Head CT 08/21/17 00:00 IMPRESSION: MILD CHRONIC CHANGES OF ATROPHY AND MICROVASCULAR ISCHEMIA. NO ACUTE PROCESS. EVIDENCE OF ACUTE STROKE: NO. Renal Ultrasound 08/21/17 00:00 IMPRESSION: UNREMARKABLE RENAL AND BLADDER ULTRASOUND. HYDRONEPHROSIS SEEN ON RECENT CT HAS IMPROVED. THIS PROBABLY WAS DUE TO DISTENDED BLADDER WHICH HAS RESOLVED WITH PLACEMENT OF YEPEZ CATHETER. Shoulder X-Ray 08/30/17 00:00 IMPRESSION: No acute fracture or malalignment Assessment & Plan - Plan Summary Plan Summary: 1. Acute on Chronic Respiratory Failure with hypoxia. likely secondary to pulmonary edema on CXR gave 40mg of IV lasix, now and q8h BIPAP support, transfer to ICU for overnight monitoring stable vitals, afebrile, mild leukocytosis hold on possibly unnessary antibiotics given his recent C. Diff hx. check urine for possible UTI 2. Sacral decubitus ulcer, stage IV continue wet to dry dressing changes. 2. Debility and deconditioning Patient has diffuse pain complaints limiting his mobility. PT/OT evaluations ordered. 3. C. difficile diarrhea Repeat C. difficile testing was negative. Patient did receive a course of vancomycin/Flagyl 4. Hypokalemia resolved 5. Bursitis of left shoulder Current pain medication 6. SARA, BiPAP when needed 7. Atrial fibrillation. Continue metoprolol for rate control. High falls risk no anticoagulation. has been refusing metoprolol 8. Anemia improved, monitor 9. Bacteremia, ruled out, likely contaminant. 10. Neuropathy. supportive care, limit sedating medications 11. uncontroled HTN give prn hydralazine and labetalol with use parameters encouraged him to take his metoprolol
[2017-09-20 20:58] LABS: APPEARANCE,URINE CLOUDY; BILIRUBIN,URINE NEGATIVE (NEGATIVE); CALCIUM OXALATE CRYSTALS,URINE RARE /HPF; COLOR,URINE STRAW; GLUCOSE, URINE NEGATIVE (NEGATIVE); KETONES,URINE NEGATIVE (NEGATIVE); LEUKOCYTE ESTERASE,URINE NEGATIVE (NEGATIVE); NITRITE,URINE NEGATIVE (NEGATIVE); PROTEIN,URINE NEGATIVE (NEGATIVE); URINE SPECIFIC GRAVITY 1.004; UROBILINOGEN,URINE NEGATIVE mg/dL (<2.0)
[2017-09-20] MEDS ORDERED: METRONIDAZOLE 500 MG/NS RTU 100 ML IV SCH (21:00)
[2017-09-20] MEDS: FUROSEMIDE INJ/PF 40 MG/4 ML SDV IV SCH (22:48)
[2017-09-20] MEDS: TRAZODONE HCL 50 MG TABLET PO SCH (22:49)
[2017-09-20] MEDS: PHARMACY COMMUNICATION ORDER MC SCH (22:50)
[2017-09-21] MEDS: IPRATROPIUM/ALBUTEROL 0.5-2.5 MG/3 ML AMPUL NEB SCH ×5 (03:59→20:44)
[2017-09-21] MEDS: METHYLPREDNISOLONE INJ 40 MG/1 ML SDV IV SCH ×4 (04:03→22:58)
[2017-09-21] MEDS: ACETAMINOPHEN 325 MG TABLET PO SCH ×3 (05:57→22:58)
[2017-09-21] MEDS: FUROSEMIDE INJ/PF 40 MG/4 ML SDV IV SCH ×3 (06:23→22:58)
[2017-09-21 07:11] LABS: HEMATOCRIT 30.4 % (37.9-51.0); MEAN CORPUSCULAR HEMOGLOBIN 30.2 pg (27.0-33.4); MEAN CORPUSCULAR HGB CONC 32.8 g/dL (32.0-36.0); MEAN CORPUSCULAR VOLUME 92 fl (80-97); PLATELET COUNT 250 10^3/uL (150-450); RED BLOOD COUNT 3.31 10^6/uL (4.35-5.55); RED CELL DISTRIBUTION WIDTH 14.4 % (11.5-14.0); WHITE BLOOD COUNT 12.2 10^3/uL (4.0-10.5)
[2017-09-21 07:28] LABS: ALBUMIN 2.8 g/dL (3.5-5.0); ANION GAP 7 (5-19); BLOOD UREA NITROGEN 26 mg/dL (7-20); CALCIUM 8.9 mg/dL (8.4-10.2); CHLORIDE 95 mmol/L (98-107); GLUCOSE 128 mg/dL (75-110); PHOSPHORUS 2.5 mg/dL (2.5-4.5); POTASSIUM 4.1 mmol/L (3.6-5.0); SODIUM 141.6 mmol/L (137-145)
[2017-09-21 07:54] LABS: CARBON DIOXIDE 40 mmol/L (22-30)
--- NOTE | 2017-09-21 08:05 | EKG REPORT ---
SEVERITY:- ABNORMAL ECG - SINUS RHYTHM FIRST DEGREE AV BLOCK BORDERLINE R WAVE PROGRESSION, ANTERIOR LEADS , CONSIDER OLD ANT [place] : Confirmed by: Dalton Templeton MD 21-Sep-2017 08:04:18
[2017-09-21] MEDS: BUDESONIDE NEB 0.5 MG/2 ML AMPUL NEB SCH ×2 (08:09→20:45)
[2017-09-21] MEDS ORDERED: VANCOMYCIN HCL INJ 1000 MG VIAL IV SCH (10:00)
[2017-09-21] MEDS: METOPROLOL TARTRATE 25 MG TABLET PO SCH ×2 (11:41→23:00)
[2017-09-21] MEDS: FINASTERIDE 5 MG TABLET PO SCH (11:41)
[2017-09-21] MEDS: LACTOBACILLUS ACIDOPHILUS 250 MG TAB PO SCH ×2 (11:44→18:35)
[2017-09-21] MEDS: LIDOCAINE 5% (700 MG) TRANSDERMAL ADH..PATCH TP SCH (11:46)
[2017-09-21] MEDS: CHOLECALCIFEROL (D3) 1,000 UNIT TABLET PO SCH (11:49)
[2017-09-21] MEDS: ASPIRIN 325 MG TABLET PO SCH (11:49)
[2017-09-21] MEDS: IRON POLYSACCHARIDES COMPLEX 150 MG CAPSULE PO SCH (11:49)
[2017-09-21] MEDS: CHOLESTYRAMINE/ASPARTAME 4 GM PACKET PO SCH ×4 (11:49→23:00)
[2017-09-21] MEDS: MULTIVITAMIN TABLET PO SCH (11:49)
[2017-09-21] MEDS: COLLAGENASE CLOSTRIDIUM HIST. OINT 30 GM TP SCH (18:32)
[2017-09-21] MEDS: NYSTATIN TOPICAL POWDER 15 GM TP SCH ×2 (18:32→18:49)
[2017-09-21] MEDS: TAMSULOSIN HCL 0.4 MG CAP.SR.24H PO SCH (18:34)
--- NOTE | 2017-09-21 22:22 | PDOC PROGRESS REPORT ---
Subjective Progress Note for:: 09/21/17 Subjective:: 87-year-old male with a significant stage IV sacral ulcer currently receiving wet-to-dry dressing, with multiple medical co-morbidities. Patient displayed sincere desire to stop his current medical treatment. A meeting was held with him and his daughter at the bedside. His goal is to pursue hospice outside of the hospital at discharge. He is continued on lasix at present to assist in removing his BIPAP support. He is a DNR. The daughter is comfortable about his decision to go to hospice. His sacral wound is severe and he has been through a prolonged SNF stay and this hospitalization attempting to address this. Palliative care has been consulted to assist in supplying hospice support and options to this family. Reason For Visit: DECUBITUS ULCERS,RENAL FAILURE,HYPERKALEMIA Physical Exam Vital Signs: Temp Pulse Resp BP Pulse Ox 98.1 F 99 18 112/44 L 98 09/21/17 15:49 09/21/17 20:45 09/21/17 20:45 09/21/17 15:49 09/21/17 20:45 Intake & Output 09/20/17 09/21/17 09/22/17 06:59 06:59 06:59 Intake Total 1035 300 859 Output Total 800 1800 350 Balance 235 -1500 509 Weight 106.8 kg 106.3 kg General appearance: PRESENT: no acute distress, morbidly obese Head exam: PRESENT: atraumatic, normocephalic Eye exam: PRESENT: EOMI, PERRLA. ABSENT: conjunctiva pink Mouth exam: PRESENT: moist, neck supple Neck exam: ABSENT: full ROM, JVD, tenderness Respiratory exam: PRESENT: rales, wheezes. ABSENT: accessory muscle use, rhonchi Cardiovascular exam: PRESENT: RRR, +S1, +S2 Pulses: PRESENT: normal radial pulses, normal dorsalis pedis pul Vascular exam: PRESENT: normal capillary refill. ABSENT: pallor GI/Abdominal exam: PRESENT: diminished bowel sounds. ABSENT: mass Extremities exam: ABSENT: calf tenderness, joint swelling Musculoskeletal exam: ABSENT: ambulatory, full ROM Neurological exam: PRESENT: alert, oriented to person, oriented to place, CN II- XII grossly intact Psychiatric exam: PRESENT: agitated. ABSENT: anxious, flat affect Focused psych exam: ABSENT: catatonic, paranoid Skin exam: ABSENT: abrasion, cyanosis, mottled, normal color Results Laboratory Results: 09/21/17 06:54 09/21/17 06:54 09/21/17 09/21/17 06:54 06:54 WBC 12.2 H RBC 3.31 L Hgb 10.0 L Hct 30.4 L MCV 92 MCH 30.2 MCHC 32.8 RDW 14.4 H Plt Count 250 Sodium 141.6 Potassium 4.1 Chloride 95 L Carbon Dioxide 40 H* Anion Gap 7 BUN 26 H Creatinine 0.90 Est GFR ( Amer) > 60 Est GFR (Non-Af Amer) > 60 Glucose 128 H Calcium 8.9 Phosphorus 2.5 Albumin 2.8 L 08/21/17 09/20/17 03:45 20:00 Creatine Kinase 586 H Troponin I 0.017 Impressions: Abdomen/Pelvis CT 08/20/17 23:35 IMPRESSION: Moderate dilation of the renal collecting system. Differential diagnosis includes bladder outlet obstruction/dysfunction. Cervical Spine CT 08/21/17 00:00 IMPRESSION: CHRONIC DEGENERATIVE CHANGES. NO ACUTE FINDINGS. Head CT 08/21/17 00:00 IMPRESSION: MILD CHRONIC CHANGES OF ATROPHY AND MICROVASCULAR ISCHEMIA. NO ACUTE PROCESS. EVIDENCE OF ACUTE STROKE: NO. Renal Ultrasound 08/21/17 00:00 IMPRESSION: UNREMARKABLE RENAL AND BLADDER ULTRASOUND. HYDRONEPHROSIS SEEN ON RECENT CT HAS IMPROVED. THIS PROBABLY WAS DUE TO DISTENDED BLADDER WHICH HAS RESOLVED WITH PLACEMENT OF YEPEZ CATHETER. Shoulder X-Ray 08/30/17 00:00 IMPRESSION: No acute fracture or malalignment Chest X-Ray 09/20/17 00:00 IMPRESSION: INTERVAL DEVELOPMENT OF MODERATE TO LARGE BILATERAL PLEURAL EFFUSIONS WITH ASSOCIATED AIRSPACE DISEASE PRESUMABLY REPRESENTING SUBSEGMENTAL ATELECTASIS. SUPERIMPOSED PNEUMONIA CANNOT BE EXCLUDED. CORRELATE WITH FEVER/ ELEVATED WHITE BLOOD CELL COUNT. Assessment & Plan - Plan Summary Plan Summary: 1. Acute on Chronic Respiratory Failure with hypoxia. likely secondary to pulmonary edema on CXR gave 40mg of IV lasix, now and q8h BIPAP support, able to wean BIPAP today to high flow. 2. Sacral decubitus ulcer, stage IV continue wet to dry dressing changes. poor healing 2. Debility and deconditioning Patient has diffuse pain complaints limiting his mobility. PT/OT evaluations 3. C. difficile diarrhea Repeat C. difficile testing was negative. Patient did receive a course of vancomycin/Flagyl 4. Hypokalemia resolved 5. Bursitis of left shoulder Current pain medication 6. SARA, BiPAP when needed 7. Atrial fibrillation. Continue metoprolol for rate control. High falls risk no anticoagulation. has been refusing metoprolol 8. Anemia improved, monitor 9. Bacteremia, ruled out, likely contaminant. 10. Neuropathy. supportive care, limit sedating medications 11. uncontroled HTN give prn hydralazine and labetalol with use parameters encouraged him to take his metoprolol 12. Goals of Care. patient and daughter chose hospice as his desired option when leaving the hospital palliative care consulted to assist in helping him go to hospice services. will continue tx at present to improve his stablity for transfer to hospice soon.
[2017-09-21] MEDS: TRAZODONE HCL 50 MG TABLET PO SCH (22:58)
[2017-09-21] MEDS: PHARMACY COMMUNICATION ORDER MC SCH (23:00)
[2017-09-22] MEDS: IPRATROPIUM/ALBUTEROL 0.5-2.5 MG/3 ML AMPUL NEB SCH ×7 (00:30→23:55)
[2017-09-22] MEDS: METHYLPREDNISOLONE INJ 40 MG/1 ML SDV IV SCH ×3 (05:40→22:44)
[2017-09-22] MEDS: FUROSEMIDE INJ/PF 40 MG/4 ML SDV IV SCH ×3 (05:40→22:44)
[2017-09-22] MEDS: ACETAMINOPHEN 325 MG TABLET PO SCH ×3 (05:43→22:44)
[2017-09-22] MEDS: BUDESONIDE NEB 0.5 MG/2 ML AMPUL NEB SCH ×2 (08:24→20:53)
[2017-09-22] MEDS: CHOLESTYRAMINE/ASPARTAME 4 GM PACKET PO SCH ×4 (10:27→22:44)
[2017-09-22] MEDS: ASPIRIN 325 MG TABLET PO SCH (10:32)
[2017-09-22] MEDS: MULTIVITAMIN TABLET PO SCH (10:32)
[2017-09-22] MEDS: IRON POLYSACCHARIDES COMPLEX 150 MG CAPSULE PO SCH (10:32)
[2017-09-22] MEDS: LACTOBACILLUS ACIDOPHILUS 250 MG TAB PO SCH ×2 (10:32→17:29)
[2017-09-22] MEDS: FINASTERIDE 5 MG TABLET PO SCH (10:32)
[2017-09-22] MEDS: METOPROLOL TARTRATE 25 MG TABLET PO SCH ×2 (10:32→22:44)
[2017-09-22] MEDS: COLLAGENASE CLOSTRIDIUM HIST. OINT 30 GM TP SCH (10:33)
[2017-09-22] MEDS: LIDOCAINE 5% (700 MG) TRANSDERMAL ADH..PATCH TP SCH (10:43)
--- NOTE | 2017-09-22 15:19 | PDOC PROGRESS REPORT ---
Subjective Progress Note for:: 09/22/17 Subjective:: The patient is an 87-year-old male with multiple medical problems. Currently, he has been admitted for stage IV decubitus ulcer. His hospitalization has been complicated by acute on chronic respiratory failure. Yesterday, a bedside discussion was held between the patient and his daughter. The goals of care were now changed to palliative care with hospice. Reason For Visit: DECUBITUS ULCERS,RENAL FAILURE,HYPERKALEMIA Physical Exam Vital Signs: Temp Pulse Resp BP Pulse Ox 97.7 F 105 H 24 H 135/55 H 100 09/22/17 12:20 09/22/17 14:00 09/22/17 12:20 09/22/17 12:20 09/22/17 12:20 Intake & Output 09/21/17 09/22/17 09/23/17 06:59 06:59 06:59 Intake Total 300 1109 Output Total 1800 1350 Balance -1500 -241 Weight 106.3 kg 106.3 kg Additional comments: Patient is awake. He is cognitively intact and able to state what his wishes are. He does appear to be elderly and frail. He does not appear to have some pallor indicative of anemia. His lungs demonstrate reduced breath sounds but they are clear. His cardiac exam is distant. However, does sound regular at this time. I do not appreciate any murmurs, gallops or rubs. The abdomen is slightly protuberant but soft. Bowel sounds are present in the lower quadrants. He does have 1+ edema of the lower extremities. The decubitus ulcer was not examined today. No new acute or other skin lesions or rashes are noted. Results Laboratory Results: 09/21/17 06:54 09/21/17 06:54 09/20/17 20:25 Catheterized Urine Urine Culture - Final NO GROWTH 2 DAYS 08/21/17 09/20/17 03:45 20:00 Creatine Kinase 586 H Troponin I 0.017 Impressions: Abdomen/Pelvis CT 08/20/17 23:35 IMPRESSION: Moderate dilation of the renal collecting system. Differential diagnosis includes bladder outlet obstruction/dysfunction. Cervical Spine CT 08/21/17 00:00 IMPRESSION: CHRONIC DEGENERATIVE CHANGES. NO ACUTE FINDINGS. Head CT 08/21/17 00:00 IMPRESSION: MILD CHRONIC CHANGES OF ATROPHY AND MICROVASCULAR ISCHEMIA. NO ACUTE PROCESS. EVIDENCE OF ACUTE STROKE: NO. Renal Ultrasound 08/21/17 00:00 IMPRESSION: UNREMARKABLE RENAL AND BLADDER ULTRASOUND. HYDRONEPHROSIS SEEN ON RECENT CT HAS IMPROVED. THIS PROBABLY WAS DUE TO DISTENDED BLADDER WHICH HAS RESOLVED WITH PLACEMENT OF YEPEZ CATHETER. Shoulder X-Ray 08/30/17 00:00 IMPRESSION: No acute fracture or malalignment Chest X-Ray 09/20/17 00:00 IMPRESSION: INTERVAL DEVELOPMENT OF MODERATE TO LARGE BILATERAL PLEURAL EFFUSIONS WITH ASSOCIATED AIRSPACE DISEASE PRESUMABLY REPRESENTING SUBSEGMENTAL ATELECTASIS. SUPERIMPOSED PNEUMONIA CANNOT BE EXCLUDED. CORRELATE WITH FEVER/ ELEVATED WHITE BLOOD CELL COUNT. Assessment & Plan - Diagnosis (1) Uncontrolled hypertension Is this a current diagnosis for this admission?: Yes (2) Anemia Qualifiers: Anemia type: unspecified type Qualified Code(s): D64.9 - Anemia, unspecified Is this a current diagnosis for this admission?: Yes (3) Atrial fibrillation Qualifiers: Atrial fibrillation type: chronic Qualified Code(s): I48.2 - Chronic atrial fibrillation Is this a current diagnosis for this admission?: Yes (4) Bacteremia Is this a current diagnosis for this admission?: Yes (5) Bursitis of left shoulder Is this a current diagnosis for this admission?: Yes (6) C. difficile diarrhea Is this a current diagnosis for this admission?: Yes (7) Neuropathy Is this a current diagnosis for this admission?: Yes (8) SARA (obstructive sleep apnea) Is this a current diagnosis for this admission?: Yes (9) Sacral decubitus ulcer, stage IV Is this a current diagnosis for this admission?: Yes - Time Time Spent with patient: 15-24 minutes - Inpatient Certification Medical Necessity: Risk of Complication if Not Cared For in Hospital - Plan Summary Plan Summary: The patient received Lasix for his acute respiratory failure. He was changed from BiPAP to high flow nasal cannula. The patient is currently getting wet-to- dry dressings for the stage IV decubitus ulcer. Regarding the C. difficile colitis he is status post a course of vancomycin and Flagyl. Repeat C. difficile testing is negative. He has been offered treatment for SARA with BiPAP as needed. Currently, he has been refusing his metoprolol for the atrial fibrillation and uncontrolled hypertension. Bacteremia has been ruled out. We were previously monitoring the anemia but with a change in goals of care I do not anticipate checking any additional labs. Supportive care will be offered for the neuropathy.
[2017-09-22] MEDS: TAMSULOSIN HCL 0.4 MG CAP.SR.24H PO SCH (17:29)
[2017-09-22] MEDS: TRAZODONE HCL 50 MG TABLET PO SCH (22:44)
[2017-09-22] MEDS: PHARMACY COMMUNICATION ORDER MC SCH (23:06)
[2017-09-23] MEDS: IPRATROPIUM/ALBUTEROL 0.5-2.5 MG/3 ML AMPUL NEB SCH ×5 (04:20→19:55)
[2017-09-23] MEDS: ACETAMINOPHEN 325 MG TABLET PO SCH ×3 (05:17→21:33)
[2017-09-23] MEDS: FUROSEMIDE INJ/PF 40 MG/4 ML SDV IV SCH ×2 (05:17→15:36)
[2017-09-23] MEDS: METHYLPREDNISOLONE INJ 40 MG/1 ML SDV IV SCH ×2 (05:17→15:36)
[2017-09-23] MEDS: BUDESONIDE NEB 0.5 MG/2 ML AMPUL NEB SCH ×2 (08:30→19:55)
[2017-09-23] MEDS: CHOLESTYRAMINE/ASPARTAME 4 GM PACKET PO SCH ×4 (10:36→21:34)
[2017-09-23] MEDS: LIDOCAINE 5% (700 MG) TRANSDERMAL ADH..PATCH TP SCH (10:36)
[2017-09-23] MEDS: FINASTERIDE 5 MG TABLET PO SCH (10:37)
[2017-09-23] MEDS: LACTOBACILLUS ACIDOPHILUS 250 MG TAB PO SCH (10:37)
[2017-09-23] MEDS: ASPIRIN 325 MG TABLET PO SCH (10:37)
[2017-09-23] MEDS: MULTIVITAMIN TABLET PO SCH (10:37)
[2017-09-23] MEDS: METOPROLOL TARTRATE 25 MG TABLET PO SCH ×2 (10:37→21:34)
[2017-09-23] MEDS: IRON POLYSACCHARIDES COMPLEX 150 MG CAPSULE PO SCH (10:43)
[2017-09-23] MEDS: COLLAGENASE CLOSTRIDIUM HIST. OINT 30 GM TP SCH (10:43)
--- NOTE | 2017-09-23 16:46 | PDOC PROGRESS REPORT ---
Subjective Progress Note for:: 09/23/17 Subjective:: The patient is an 87-year-old male with multiple medical problems. Currently, he has been admitted for stage IV decubitus ulcer. His hospitalization has been complicated by acute on chronic respiratory failure. On Thursday, September 21, 2017 a conversation was held between the patient, the patient's daughter and Dr. Orlando. The patient's goals of care were discussed. A decision was made to pursue hospice and palliative services. Discharge planning has been involved with the patient's care. They are waiting to hear back from the [place] regarding a payment source. Reason For Visit: DECUBITUS ULCERS,RENAL FAILURE,HYPERKALEMIA Physical Exam Vital Signs: Temp Pulse Resp BP Pulse Ox 97.5 F 102 H 28 H 141/87 H 96 09/23/17 12:29 09/23/17 14:00 09/23/17 12:29 09/23/17 12:29 09/23/17 12:29 Intake & Output 09/22/17 09/23/17 09/24/17 06:59 06:59 06:59 Intake Total 1109 1394 Output Total 1350 3325 Balance -241 -1931 Weight 106.3 kg 106.4 kg Additional comments: The patient was wide awake and alert today. However, I do not think he really recalls all of the details of this admission. He does not recall the conversation was held on Sunday. In any event, the patient is nontoxic and not in any distress. His lungs are clear to auscultation bilaterally but he does have some decreased breath sounds in the bases posteriorly. His cardiac exam is regular without murmurs, gallops or rubs. The abdomen is obese but soft. He does not have any guarding or rebound noted. In general, the patient has 1-2 + anasarca throughout. His skin is some white pale. His decubitus ulcer was not examined today. Results Laboratory Results: 09/21/17 06:54 09/21/17 06:54 08/21/17 09/20/17 03:45 20:00 Creatine Kinase 586 H Troponin I 0.017 Impressions: Abdomen/Pelvis CT 08/20/17 23:35 IMPRESSION: Moderate dilation of the renal collecting system. Differential diagnosis includes bladder outlet obstruction/dysfunction. Cervical Spine CT 08/21/17 00:00 IMPRESSION: CHRONIC DEGENERATIVE CHANGES. NO ACUTE FINDINGS. Head CT 08/21/17 00:00 IMPRESSION: MILD CHRONIC CHANGES OF ATROPHY AND MICROVASCULAR ISCHEMIA. NO ACUTE PROCESS. EVIDENCE OF ACUTE STROKE: NO. Renal Ultrasound 08/21/17 00:00 IMPRESSION: UNREMARKABLE RENAL AND BLADDER ULTRASOUND. HYDRONEPHROSIS SEEN ON RECENT CT HAS IMPROVED. THIS PROBABLY WAS DUE TO DISTENDED BLADDER WHICH HAS RESOLVED WITH PLACEMENT OF YEPEZ CATHETER. Shoulder X-Ray 08/30/17 00:00 IMPRESSION: No acute fracture or malalignment Chest X-Ray 09/20/17 00:00 IMPRESSION: INTERVAL DEVELOPMENT OF MODERATE TO LARGE BILATERAL PLEURAL EFFUSIONS WITH ASSOCIATED AIRSPACE DISEASE PRESUMABLY REPRESENTING SUBSEGMENTAL ATELECTASIS. SUPERIMPOSED PNEUMONIA CANNOT BE EXCLUDED. CORRELATE WITH FEVER/ ELEVATED WHITE BLOOD CELL COUNT. Assessment & Plan - Diagnosis (1) Uncontrolled hypertension Is this a current diagnosis for this admission?: Yes (2) Anemia Qualifiers: Anemia type: unspecified type Qualified Code(s): D64.9 - Anemia, unspecified Is this a current diagnosis for this admission?: Yes (3) Atrial fibrillation Qualifiers: Atrial fibrillation type: chronic Qualified Code(s): I48.2 - Chronic atrial fibrillation Is this a current diagnosis for this admission?: Yes (4) Bacteremia Is this a current diagnosis for this admission?: Yes (5) Bursitis of left shoulder Is this a current diagnosis for this admission?: Yes (6) C. difficile diarrhea Is this a current diagnosis for this admission?: Yes (7) Neuropathy Is this a current diagnosis for this admission?: Yes (8) SARA (obstructive sleep apnea) Is this a current diagnosis for this admission?: Yes (9) Sacral decubitus ulcer, stage IV Is this a current diagnosis for this admission?: Yes - Plan Summary Plan Summary: The patient received Lasix for his acute respiratory failure. He was changed from BiPAP to high flow nasal cannula. The patient is currently getting wet-to- dry dressings for the stage IV decubitus ulcer. Regarding the C. difficile colitis he is status post a course of vancomycin and Flagyl. Repeat C. difficile testing is negative. He has been offered treatment for SARA with BiPAP as needed. Currently, he has been refusing his metoprolol for the atrial fibrillation and uncontrolled hypertension. Bacteremia has been ruled out. We were previously monitoring the anemia but with a change in goals of care I do not anticipate checking any additional labs. Supportive care will be offered for the neuropathy. I tried to call the patient's daughter today to address any of her concerns. Unfortunately, their home phone number required a past code which I did not have. Once arrangements have been made through the [place] for hospice care the patient will be discharged.
[2017-09-23] MEDS ORDERED: HYDROCODONE/ACETAMINOPHEN 5-325 MG TABLET PO PRN (16:51)
[2017-09-23] MEDS ORDERED: TRAMADOL HCL 50 MG TABLET PO PRN (16:51)
[2017-09-23] MEDS: TAMSULOSIN HCL 0.4 MG CAP.SR.24H PO SCH (18:10)
[2017-09-23] MEDS: ATORVASTATIN CALCIUM 40 MG TABLET PO SCH (21:33)
[2017-09-23] MEDS: TEMAZEPAM 15 MG CAPSULE PO SCH (21:34)
[2017-09-23] MEDS: MELATONIN 3 MG TABLET PO SCH (21:35)
[2017-09-23] MEDS: PHARMACY COMMUNICATION ORDER MC SCH (21:35)
[2017-09-24] MEDS: IPRATROPIUM/ALBUTEROL 0.5-2.5 MG/3 ML AMPUL NEB SCH ×3 (00:04→09:09)
[2017-09-24] MEDS: ACETAMINOPHEN 325 MG TABLET PO SCH ×3 (06:42→21:57)
[2017-09-24] MEDS: BUDESONIDE NEB 0.5 MG/2 ML AMPUL NEB SCH ×2 (09:09→20:37)
[2017-09-24] MEDS: METOPROLOL TARTRATE 25 MG TABLET PO SCH ×2 (09:48→21:57)
[2017-09-24] MEDS: TOLTERODINE TARTRATE 1 MG TABLET PO SCH ×2 (09:48→21:57)
[2017-09-24] MEDS: FINASTERIDE 5 MG TABLET PO SCH (09:50)
[2017-09-24] MEDS: ASPIRIN 81 MG TABLET, ENT COATED PO SCH (09:50)
[2017-09-24] MEDS: LISINOPRIL 10 MG TABLET PO SCH (09:50)
[2017-09-24] MEDS: MULTIVITAMIN TABLET PO SCH (09:50)
[2017-09-24] MEDS: PREDNISONE 20 MG TABLET PO SCH (09:50)
[2017-09-24] MEDS: CHOLECALCIFEROL (D3) 1,000 UNIT TABLET PO SCH (09:51)
[2017-09-24] MEDS: NIFEDIPINE 30 MG TAB.ER.24 PO SCH (09:51)
[2017-09-24] MEDS: IRON POLYSACCHARIDES COMPLEX 150 MG CAPSULE PO SCH (09:52)
[2017-09-24] MEDS: COLLAGENASE CLOSTRIDIUM HIST. OINT 30 GM TP SCH (09:55)
[2017-09-24] MEDS: LIDOCAINE 5% (700 MG) TRANSDERMAL ADH..PATCH TP SCH (09:56)
[2017-09-24] MEDS: CHOLESTYRAMINE/ASPARTAME 4 GM PACKET PO SCH ×4 (09:56→21:57)
[2017-09-24] MEDS ORDERED: FUROSEMIDE 20 MG TABLET PO SCH (10:00)
[2017-09-24] MEDS ORDERED: PREDNISONE 20 MG TABLET PO SCH (10:00)
[2017-09-24] MEDS ORDERED: (PENDING PHARMACY ID) (Docusate Calcium [Stool Softener] 240 MG) PO SCH (10:00)
[2017-09-24] MEDS: DOCUSATE SODIUM 100 MG CAPSULE PO SCH ×2 (10:01→17:31)
--- NOTE | 2017-09-24 15:15 | PDOC PROGRESS REPORT ---
Subjective Progress Note for:: 09/24/17 Subjective:: The patient is an 87-year-old male with multiple medical problems. Currently, he has been admitted for stage IV decubitus ulcer. His hospitalization has been complicated by acute on chronic respiratory failure. On Thursday, September 21, 2017 a conversation was held between the patient, the patient's daughter and Dr. Orlando. The patient's goals of care were discussed. A decision was made to pursue hospice and palliative services. Discharge planning has been involved with the patient's care. They are waiting to hear back from the [place] regarding a payment source. Reason For Visit: DECUBITUS ULCERS,RENAL FAILURE,HYPERKALEMIA Physical Exam Vital Signs: Temp Pulse Resp BP Pulse Ox 97.8 F 110 H 20 126/75 H 97 09/24/17 12:06 09/24/17 12:06 09/24/17 12:06 09/24/17 12:06 09/24/17 12:06 Intake & Output 09/23/17 09/24/17 09/25/17 06:59 06:59 06:59 Intake Total 1394 1229 792 Output Total 3325 2630 350 Balance -1931 -1401 442 Weight 106.4 kg 106.3 kg Additional comments: The patient is an 87-year-old male who is sitting up in bed in no distress. The patient appears to have cognitive deficits. In any event he does not appear to be septic or in any distress. His facial appearance is unremarkable. His lungs are noted to be clear to auscultation bilaterally. His cardiac exam is regular without murmurs, gallops or rubs. The abdomen is obese but soft. Bowel sounds are present in the lower quadrants. He does not have guarding or rebound and there are no hernias or masses present. The skin is clean, warm, dry and intact without lesions or rashes. The sacral decubitus ulcer was examined today. This is stage IV. Some granulation tissue is present. The patient has trace edema of all extremities. The edema is nonpitting. Results Laboratory Results: 09/21/17 06:54 09/21/17 06:54 09/19/17 13:30 Blood Blood Culture - Final NO GROWTH IN 5 DAYS 09/19/17 11:15 Blood Blood Culture - Final NO GROWTH IN 5 DAYS 08/21/17 09/20/17 03:45 20:00 Creatine Kinase 586 H Troponin I 0.017 Impressions: Abdomen/Pelvis CT 08/20/17 23:35 IMPRESSION: Moderate dilation of the renal collecting system. Differential diagnosis includes bladder outlet obstruction/dysfunction. Cervical Spine CT 08/21/17 00:00 IMPRESSION: CHRONIC DEGENERATIVE CHANGES. NO ACUTE FINDINGS. Head CT 08/21/17 00:00 IMPRESSION: MILD CHRONIC CHANGES OF ATROPHY AND MICROVASCULAR ISCHEMIA. NO ACUTE PROCESS. EVIDENCE OF ACUTE STROKE: NO. Renal Ultrasound 08/21/17 00:00 IMPRESSION: UNREMARKABLE RENAL AND BLADDER ULTRASOUND. HYDRONEPHROSIS SEEN ON RECENT CT HAS IMPROVED. THIS PROBABLY WAS DUE TO DISTENDED BLADDER WHICH HAS RESOLVED WITH PLACEMENT OF YEPEZ CATHETER. Shoulder X-Ray 08/30/17 00:00 IMPRESSION: No acute fracture or malalignment Chest X-Ray 09/20/17 00:00 IMPRESSION: INTERVAL DEVELOPMENT OF MODERATE TO LARGE BILATERAL PLEURAL EFFUSIONS WITH ASSOCIATED AIRSPACE DISEASE PRESUMABLY REPRESENTING SUBSEGMENTAL ATELECTASIS. SUPERIMPOSED PNEUMONIA CANNOT BE EXCLUDED. CORRELATE WITH FEVER/ ELEVATED WHITE BLOOD CELL COUNT. Assessment & Plan - Diagnosis (1) Uncontrolled hypertension Is this a current diagnosis for this admission?: Yes (2) Anemia Qualifiers: Anemia type: unspecified type Qualified Code(s): D64.9 - Anemia, unspecified Is this a current diagnosis for this admission?: Yes (3) Atrial fibrillation Qualifiers: Atrial fibrillation type: chronic Qualified Code(s): I48.2 - Chronic atrial fibrillation Is this a current diagnosis for this admission?: Yes (4) Bacteremia Is this a current diagnosis for this admission?: Yes (5) Bursitis of left shoulder Is this a current diagnosis for this admission?: Yes (6) C. difficile diarrhea Is this a current diagnosis for this admission?: Yes (7) Neuropathy Is this a current diagnosis for this admission?: Yes (8) SARA (obstructive sleep apnea) Is this a current diagnosis for this admission?: Yes (9) Sacral decubitus ulcer, stage IV Is this a current diagnosis for this admission?: Yes - Time Time Spent with patient: 15-24 minutes - Plan Summary Plan Summary: The patient received Lasix for his acute respiratory failure. He was changed from BiPAP to high flow nasal cannula. The patient is currently getting wet-to- dry dressings for the stage IV decubitus ulcer. Regarding the C. difficile colitis he is status post a course of vancomycin and Flagyl. Repeat C. difficile testing is negative. He has been offered treatment for SARA with BiPAP as needed. Currently, he has been refusing his metoprolol for the atrial fibrillation and uncontrolled hypertension. Bacteremia has been ruled out. We were previously monitoring the anemia but with a change in goals of care I do not anticipate checking any additional labs. Supportive care will be offered for the neuropathy. I tried to call the patient's daughter yesterday to address any of her concerns. Unfortunately, their home phone number required a past code which I did not have. I assume that there have been no changes to the plan of care. The nurses have not reported that the daughter has any new concerns. Once arrangements have been made through the [place] for hospice care the patient will be discharged.
[2017-09-24] MEDS: TAMSULOSIN HCL 0.4 MG CAP.SR.24H PO SCH (17:31)
[2017-09-24] MEDS: ATORVASTATIN CALCIUM 40 MG TABLET PO SCH (21:57)
[2017-09-24] MEDS: MELATONIN 3 MG TABLET PO SCH (21:58)
[2017-09-24] MEDS: PHARMACY COMMUNICATION ORDER MC SCH (21:58)
[2017-09-24] MEDS: TEMAZEPAM 15 MG CAPSULE PO SCH (21:59)
--- NOTE | 2017-09-24 23:09 | Palliative Consultation Report ---
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 He tells me he was in the hospital for weakness for about two months. Then he was sent to rehab for two months, during which time he had no more that 20 days of PT so he did not get better and finally got to where he couldn't walk. He went home and could not care for himself because he lives alone and could not get out of bed. Mr. Jackson has additional problems of HTN, hyperlipidemia, and came to hospital with very high creatinine due to dehydration. He later developed some respiratory distress but says he is breathing fine now and shows no sign of dyspnea. Patient is alert and oriented. He is hoping tp go back to some rehab that will actuallyhelp him heal his wounds and walk again. He says his daughter cannot take care of him as he is. He tells me that President Jeb promised that since he is a disabled ( 100%), all of his care will be covered at 100% . service planner is working on placement and payment source from [place]. Mr. Jackson is DNR and said his daughter makes all of his health care decision. He asked if I could come back and check on him another day when his daughter is at hospital. He said she had appointment this afternoon. He denies pain or symptoms and says he is getting good care. Onset: Other Onset/Duration: Gradual, Constant Associated Symptoms: Leg swelling, Weakness Exacerbated by: Sitting Past Medical History(Consults) - General Information Source: Patient, [facility] Records Home Medications: Aspirin [Ecotrin 81 mg EC Tablet] 81 mg PO DAILY 08/21/17 Atorvastatin Calcium [Lipitor 40 mg Tablet] 40 mg PO QHS 08/21/17 Cholecalciferol (Vitamin D3) [Vitamin D3] 1,000 unit PO DAILY 08/21/17 Docusate Calcium [Stool Softener] 240 mg PO DAILY 08/21/17 Finasteride [Proscar 5 mg Tablet] 5 mg PO DAILY 08/21/17 Furosemide [Lasix 20 mg Tablet] 20 mg PO DAILY 08/21/17 Hydrocodone/Acetaminophen [Hydrocodone-Acetamin 5-325 mg] 1 tab PO Q12HP PRN Lisinopril [Prinivil 40 mg Tablet] 40 mg PO DAILY 08/21/17 Melatonin [Melatonin 3 mg Tablet] 3 mg PO QHS 08/21/17 Multivitamin [Tab-A-Allen (Multiple Vitamin) Tablet] 1 tab PO DAILY 08/21/17 Nifedipine [Nifedipine ER] 60 mg PO DAILY 08/21/17 Tamsulosin HCl [Flomax 0.4 mg Cap.sr] 0.4 mg PO DAILY 08/21/17 Temazepam [Restoril 15 mg Capsule] 15 mg PO QHS 08/21/17 Tolterodine Tartrate [Tolterodine Tartrate ER] 4 mg PO DAILY 08/21/17 Tramadol HCl [Ultram 50 mg Tablet] 50 mg PO Q6HP PRN 08/21/17 Allergies/Adverse Reactions: No Known Allergies Allergy (Unverified 08/20/17 17:35) - Social History Lives with: Family Family History: Reviewed & Not Pertinent Parental Family History Reviewed: No Children Family History Reviewed: No Sibling(s) Family History Reviewed.: No Smoking Status: Never Smoker Hx Recreational Drug Use: No Hx Prescription Drug Abuse: No - Past Medical History Cardiac Medical History: Reports: Hx Hypercholesterolemia, Hx Hypertension Denies: None, Hx Atrial Fibrillation, Hx Congestive Heart Failure, Hx Coronary Artery Disease, Hx DVT, Hx Heart Attack, Hx Peripheral Vascular Disease , Hx Pulmonary Embolism, Hx Heart Murmur, Other Pulmonary History Note: Respiratory distress during admission, improved Endocrine Medical History: Denies: None, Hx Diabetes Mellitus Type 1, Hx Diabetes Mellitus Type 2, Hx Hyperthyroidism, Hx Hypothyroidism, Other Renal/ Medical History: Reports: Hx Benign Prostatic Hyperplasia, Hx Renal Insufficiency, Other - BPH. Denies: Hx Peritoneal Dialysis Malignancy Medical History: Denies None, Denies Hx Bone Cancer, Denies Hx Brain Cancer, Denies Hx Colorectal Cancer, Denies Hx Leukemia, Denies Hx Liver Cancer , Denies Hx Lung Cancer, Denies Hx Lymphoma, Denies Hx Pancreatic Cancer, Denies Hx Renal (Kidney) Cancer, Denies Hx Skin Cancer, Denies Other GI Medical History: Denies: None, Hx Cirrhosis, Hx Crohn's Disease, Hx Diverticulitis, Hx Gastroesophageal Reflux Disease, Hx Hepatitis, Hx Hiatal Hernia, Hx Ulcerative Colitis, Other Musculoskeltal Medical History: Reports Hx Arthritis, Reports Hx Muscle Weakness Skin Medical History: Denies None, Denies Hx Eczema, Denies Hx Psoriasis, Denies Other Psychiatric Medical History: Denies: None, Hx Attention Deficit Hyperactivity Disorder, Hx Bipolar Disorder, Hx Dementia, Hx Depression, Hx Personality Disorder, Hx Post Traumatic Stress Disorder, Hx Schizoaffective Disorder, Other Infectious Medical History: Denies: None, Hx C-Diff, Hx Hepatitis, Hx HIV, Hx MRSA, Hx VRE Hematology: Reports: Anemia - Surgical History Past Surgical History: Reports: Hx Appendectomy Review of systems Constitutional: Weakness, Recent illness EENT: Nose congestion Cardiovascular: No symptoms reported Respiratory: Short of breath Geniturinary: No symptoms reported Musculoskeltal: Back pain, Muscle stiffness Neurological/Psychological: Anxiety, Weakness Ojective:Exam Vital Signs: Temp Pulse Resp BP Pulse Ox 97.7 F 83 18 124/75 97 09/24/17 20:00 09/24/17 20:35 09/24/17 20:35 09/24/17 20:00 09/24/17 20:00 Intake & Output 09/23/17 09/24/17 09/25/17 06:59 06:59 06:59 Intake Total 1394 1229 792 Output Total 3325 2630 350 Balance -1931 -1401 442 Weight 106.4 kg 106.3 kg - General General Appearance: Alert, Anxious In distress: None - HEENT Pupils: PERRLA Mouth/Lips: Normal Mucous membrane: Normal, Moist - Respiratory Breath sounds: Clear - Cardiovascular Rhythm: Regular Pulses: Normal: Radial - Extremities Upper extremity: Normal inspection Lower extremities: Edema Objective-Diagnostic Laboratory: 09/21/17 06:54 09/21/17 06:54 09/19/17 13:30 Blood Blood Culture - Final NO GROWTH IN 5 DAYS 09/19/17 11:15 Blood Blood Culture - Final NO GROWTH IN 5 DAYS 08/21/17 09/20/17 03:45 20:00 Creatine Kinase 586 H Troponin I 0.017 Plan and Recommendation Plan and Recommendation: Patient denies pain or distress. No other symptoms reported. Mr. Jackson is hopeful to be transferred to better rehab and is hopeful he will be able to walk again. Patient did not want to talk about advance directives until his daughter is able to be with him. He asked me to "check back tomorrow" No recommendations for meds at this time. Will follow. - Time Spent with Patient Time spent with patient: 15 to 30 Minutes Time: 20 min
--- NOTE | 2017-09-24 23:32 | EKG REPORT ---
SEVERITY:- ABNORMAL ECG - ATRIAL FIBRILLATION, V-RATE 91-169 VENTRICULAR PREMATURE COMPLEX ABNRM R PROG, CONSIDER ASMI OR LEAD PLACEMENT BORDERLINE T ABNORMALITIES, INFERIOR LEADS : Confirmed by: Maki Olivier 24-Sep-2017 23:32:00
[2017-09-25] MEDS: ACETAMINOPHEN 325 MG TABLET PO SCH ×3 (05:31→21:18)
[2017-09-25] MEDS: BUDESONIDE NEB 0.5 MG/2 ML AMPUL NEB SCH ×2 (08:35→19:56)
[2017-09-25] MEDS: LIDOCAINE 5% (700 MG) TRANSDERMAL ADH..PATCH TP SCH (10:51)
[2017-09-25] MEDS: NIFEDIPINE 30 MG TAB.ER.24 PO SCH (10:51)
[2017-09-25] MEDS: CHOLESTYRAMINE/ASPARTAME 4 GM PACKET PO SCH ×3 (10:51→21:19)
[2017-09-25] MEDS: LISINOPRIL 10 MG TABLET PO SCH (10:52)
[2017-09-25] MEDS: IRON POLYSACCHARIDES COMPLEX 150 MG CAPSULE PO SCH (10:52)
[2017-09-25] MEDS: METOPROLOL TARTRATE 25 MG TABLET PO SCH ×2 (10:52→21:19)
[2017-09-25] MEDS: CHOLECALCIFEROL (D3) 1,000 UNIT TABLET PO SCH (10:52)
[2017-09-25] MEDS: PREDNISONE 20 MG TABLET PO SCH (10:53)
[2017-09-25] MEDS: FINASTERIDE 5 MG TABLET PO SCH (10:53)
[2017-09-25] MEDS: ASPIRIN 81 MG TABLET, ENT COATED PO SCH (10:53)
[2017-09-25] MEDS: TOLTERODINE TARTRATE 1 MG TABLET PO SCH ×2 (10:54→21:15)
[2017-09-25] MEDS: COLLAGENASE CLOSTRIDIUM HIST. OINT 30 GM TP SCH (10:54)
[2017-09-25] MEDS: MULTIVITAMIN TABLET PO SCH (10:54)
[2017-09-25] MEDS: DOCUSATE SODIUM 100 MG CAPSULE PO SCH ×2 (10:54→17:43)
[2017-09-25] MEDS: TAMSULOSIN HCL 0.4 MG CAP.SR.24H PO SCH (17:43)
[2017-09-25] MEDS: TEMAZEPAM 15 MG CAPSULE PO SCH (21:11)
[2017-09-25] MEDS: PHARMACY COMMUNICATION ORDER MC SCH (21:11)
[2017-09-25] MEDS: ATORVASTATIN CALCIUM 40 MG TABLET PO SCH (21:18)
[2017-09-26] MEDS: ACETAMINOPHEN 325 MG TABLET PO SCH ×3 (05:30→21:30)
--- NOTE | 2017-09-26 05:48 | PDOC PROGRESS REPORT ---
Subjective Progress Note for:: 09/25/17 Subjective:: Pt states that he does not understand why he is still here. Pt states that he came in because he wanted to go to the [facility]. Reason For Visit: DECUBITUS ULCERS,RENAL FAILURE,HYPERKALEMIA Physical Exam Vital Signs: Temp Pulse Resp BP Pulse Ox 97.3 F 65 19 124/60 90 L 09/26/17 04:12 09/26/17 04:12 09/26/17 04:12 09/26/17 04:12 09/26/17 04:12 Intake & Output 09/24/17 09/25/17 09/26/17 06:59 06:59 06:59 Intake Total 1229 1467 420 Output Total 2630 550 1500 Balance -1401 917 -1080 Weight 106.3 kg 106.3 kg General appearance: PRESENT: no acute distress, morbidly obese, well-developed, well-nourished Head exam: PRESENT: atraumatic, normocephalic Eye exam: PRESENT: conjunctiva pink, EOMI. ABSENT: scleral icterus Ear exam: PRESENT: normal external ear exam Mouth exam: PRESENT: moist, tongue midline Neck exam: ABSENT: carotid bruit, JVD, lymphadenopathy, thyromegaly Respiratory exam: PRESENT: clear to auscultation arash. ABSENT: rales, rhonchi, wheezes Cardiovascular exam: PRESENT: RRR. ABSENT: diastolic murmur, rubs, systolic murmur Pulses: PRESENT: normal dorsalis pedis pul Vascular exam: PRESENT: normal capillary refill GI/Abdominal exam: PRESENT: normal bowel sounds, soft. ABSENT: distended, guarding, mass, organolmegaly, rebound, tenderness Rectal exam: PRESENT: deferred Extremities exam: PRESENT: full ROM. ABSENT: calf tenderness, clubbing, pedal edema Neurological exam: PRESENT: alert, awake, oriented to person, oriented to place , oriented to time, oriented to situation, CN II-XII grossly intact. ABSENT: motor sensory deficit Psychiatric exam: PRESENT: appropriate affect, normal mood. ABSENT: homicidal ideation, suicidal ideation Skin exam: PRESENT: dry, intact, warm. ABSENT: cyanosis, rash Results Laboratory Results: 09/21/17 06:54 09/21/17 06:54 08/21/17 09/20/17 03:45 20:00 Creatine Kinase 586 H Troponin I 0.017 Impressions: Abdomen/Pelvis CT 08/20/17 23:35 IMPRESSION: Moderate dilation of the renal collecting system. Differential diagnosis includes bladder outlet obstruction/dysfunction. Cervical Spine CT 08/21/17 00:00 IMPRESSION: CHRONIC DEGENERATIVE CHANGES. NO ACUTE FINDINGS. Head CT 08/21/17 00:00 IMPRESSION: MILD CHRONIC CHANGES OF ATROPHY AND MICROVASCULAR ISCHEMIA. NO ACUTE PROCESS. EVIDENCE OF ACUTE STROKE: NO. Renal Ultrasound 08/21/17 00:00 IMPRESSION: UNREMARKABLE RENAL AND BLADDER ULTRASOUND. HYDRONEPHROSIS SEEN ON RECENT CT HAS IMPROVED. THIS PROBABLY WAS DUE TO DISTENDED BLADDER WHICH HAS RESOLVED WITH PLACEMENT OF YEPEZ CATHETER. Shoulder X-Ray 08/30/17 00:00 IMPRESSION: No acute fracture or malalignment Chest X-Ray 09/20/17 00:00 IMPRESSION: INTERVAL DEVELOPMENT OF MODERATE TO LARGE BILATERAL PLEURAL EFFUSIONS WITH ASSOCIATED AIRSPACE DISEASE PRESUMABLY REPRESENTING SUBSEGMENTAL ATELECTASIS. SUPERIMPOSED PNEUMONIA CANNOT BE EXCLUDED. CORRELATE WITH FEVER/ ELEVATED WHITE BLOOD CELL COUNT. Assessment & Plan - Diagnosis (1) Debility Is this a current diagnosis for this admission?: Yes Plan: PT/OT evaluation and treatment. (2) Hypomagnesemia Is this a current diagnosis for this admission?: Yes Plan: Resolved. (3) Acute hypernatremia Is this a current diagnosis for this admission?: Yes Plan: Resolved. (4) Acute renal failure Qualifiers: Acute renal failure type: unspecified Qualified Code(s): N17.9 - Acute kidney failure, unspecified Is this a current diagnosis for this admission?: Yes Plan: Secondary to Dehydration: Resolved. (5) Anemia Qualifiers: Anemia type: unspecified type Qualified Code(s): D64.9 - Anemia, unspecified Is this a current diagnosis for this admission?: Yes Plan: Most likely of Chronic Disease: will continue iron replacement. (6) BPH (benign prostatic hyperplasia) Qualifiers: Lower urinary tract symptom detail: urinary obstruction Is this a current diagnosis for this admission?: Yes Plan: Yeepz in place due to urinary retention. Urine culture no growth. Finasteride and tamsulosin. UA demonstrates no evidence of UTI. Urine culture no growth. (7) Bacteremia Is this a current diagnosis for this admission?: Yes Plan: Ruled out: Contaminant. (8) C. difficile diarrhea Is this a current diagnosis for this admission?: Yes Plan: Patient still is now formed. Patient has been off vancomycin and Flagyl treatment. Repeat C diff neg. (9) Hypokalemia due to loss of potassium Is this a current diagnosis for this admission?: Yes Plan: Resolved (10) Neuropathy Is this a current diagnosis for this admission?: Yes Plan: supportive care (11) Sacral decubitus ulcer, stage IV Is this a current diagnosis for this admission?: Yes Plan: Status post debridement by surgery: We will continue with wound care. Surgery debrided patient's wound on 09/15/2017. (12) Wheezing Is this a current diagnosis for this admission?: Yes Plan: Etiology unclear: continue current care. (13) Bursitis of left shoulder Is this a current diagnosis for this admission?: Yes Plan: Physicial Therapy. Resolving. Patient able to move left upper extremity more. (14) SARA (obstructive sleep apnea) Is this a current diagnosis for this admission?: Yes Plan: Pt most likely has SARA. (15) Atrial fibrillation Qualifiers: Atrial fibrillation type: chronic Qualified Code(s): I48.2 - Chronic atrial fibrillation Is this a current diagnosis for this admission?: Yes Plan: Continue metoprolol and aspirin. Patient high risk for falls. (16) Alkalosis Is this a current diagnosis for this admission?: Yes Plan: Most likely respiratory: Patient's ABG demonstrates compensated respiratory Alkalosis. Pt most likely has SARA. Will continue to monitor. Will need outpatient sleep study. (17) DVT prophylaxis Is this a current diagnosis for this admission?: Yes Plan: SCDs - Time Time Spent with patient: Less than 15 minutes
[2017-09-26 05:58] LABS: HEMATOCRIT 31.8 % (37.9-51.0); HEMOGLOBIN 10.4 g/dL (13.5-17.0); MEAN CORPUSCULAR HEMOGLOBIN 29.7 pg (27.0-33.4); MEAN CORPUSCULAR HGB CONC 32.8 g/dL (32.0-36.0); MEAN CORPUSCULAR VOLUME 91 fl (80-97); PLATELET COUNT 328 10^3/uL (150-450); RED BLOOD COUNT 3.52 10^6/uL (4.35-5.55); RED CELL DISTRIBUTION WIDTH 14.4 % (11.5-14.0); WHITE BLOOD COUNT 18.5 10^3/uL (4.0-10.5)
[2017-09-26 06:07] LABS: ALANINE AMINOTRANSFERASE 40 U/L (21-72); ALBUMIN 2.7 g/dL (3.5-5.0); ALKALINE PHOSPHATASE 104 U/L (38-126); ASPARTATE AMINO TRANSFERASE 24 U/L (17-59); BILIRUBIN,DIRECT 0.2 mg/dL (0.0-0.4); BILIRUBIN,TOTAL 0.2 mg/dL (0.2-1.3); BLOOD UREA NITROGEN 51 mg/dL (7-20); CALCIUM 8.6 mg/dL (8.4-10.2); GLUCOSE 83 mg/dL (75-110); POTASSIUM 4.2 mmol/L (3.6-5.0); TOTAL PROTEIN 5.9 g/dL (6.3-8.2)
[2017-09-26 06:12] LABS: CARBON DIOXIDE 39 mmol/L (22-30); CHLORIDE 94 mmol/L (98-107); SODIUM 136.6 mmol/L (137-145)
[2017-09-26 06:30] LABS: ANION GAP 4 (5-19)
[2017-09-26 06:31] LABS: ABSOLUTE LYMPHOCYTES# (MANUAL) 1.7 10^3/uL (0.5-4.7); ABSOLUTE MONOCYTES # (MANUAL) 1.3 10^3/uL (0.1-1.4); ABSOLUTE NEUTROPHILS# (MANUAL) 15.5 10^3/uL (1.7-8.2); BAND NEUTROPHILS % (MANUAL) 2 % (3-5); BASOPHILS % (MANUAL) 0 % (0-2); EOSINOPHILS % (MANUAL) 0 % (0-6); LYMPHOCYTES % (MANUAL) 9 % (13-45); MONOCYTES % (MANUAL) 7 % (3-13); SEGMENTED NEUTROPHILS % (MAN) 82 % (42-78); TOTAL CELLS COUNTED 100
[2017-09-26 06:32] LABS: POLYCHROMASIA SLIGHT; TOXIC GRANULATION SLIGHT; TOXIC VACUOLATION PRESENT
[2017-09-26 06:33] LABS: ANISOCYTOSIS SLIGHT; HYPOCHROMASIA SLIGHT; PLATELET COMMENT ADEQUATE
[2017-09-26] MEDS: BUDESONIDE NEB 0.5 MG/2 ML AMPUL NEB SCH ×2 (08:55→20:22)
[2017-09-26] MEDS: TOLTERODINE TARTRATE 1 MG TABLET PO SCH ×2 (09:29→21:30)
[2017-09-26] MEDS: CHOLECALCIFEROL (D3) 1,000 UNIT TABLET PO SCH (09:29)
[2017-09-26] MEDS: ASPIRIN 81 MG TABLET, ENT COATED PO SCH (09:29)
[2017-09-26] MEDS: FINASTERIDE 5 MG TABLET PO SCH (09:29)
[2017-09-26] MEDS: DOCUSATE SODIUM 100 MG CAPSULE PO SCH ×2 (09:29→19:18)
[2017-09-26] MEDS: CHOLESTYRAMINE/ASPARTAME 4 GM PACKET PO SCH ×4 (09:29→21:30)
[2017-09-26] MEDS: PREDNISONE 20 MG TABLET PO SCH (09:30)
[2017-09-26] MEDS: LISINOPRIL 10 MG TABLET PO SCH (09:30)
[2017-09-26] MEDS: MULTIVITAMIN TABLET PO SCH (09:30)
[2017-09-26] MEDS: IRON POLYSACCHARIDES COMPLEX 150 MG CAPSULE PO SCH (09:30)
[2017-09-26] MEDS: NIFEDIPINE 30 MG TAB.ER.24 PO SCH (09:30)
[2017-09-26] MEDS: METOPROLOL TARTRATE 25 MG TABLET PO SCH ×2 (09:31→21:30)
[2017-09-26] MEDS: LIDOCAINE 5% (700 MG) TRANSDERMAL ADH..PATCH TP SCH (09:31)
--- NOTE | 2017-09-26 16:30 | PDOC PROGRESS REPORT ---
Subjective Progress Note for:: 09/26/17 Subjective:: Patient was very upset this morning. Patient states the president Jeb has signed a bill that states that the [facility] is supposed to help assist the veterans in a timely manner. Patient reports that he saw that on television that President Jeb is already addressed this issue when he does not understand why he is still in this hospital and he wants someone to do something about it. Explained to him that he would need to speak with case management about what is taking place with his placement. Did try to explain the patient that we are waiting for [facility] to respond. Patient also stated that he was very upset because he was not working with physical therapy. Nursing states that physical therapy has been coming to work with him but he has been refusing to work with physical therapy when they arrive. Patient states that physical therapy arrives at inappropriate times and he would like to work with them at a later time. Reason For Visit: DECUBITUS ULCERS,RENAL FAILURE,HYPERKALEMIA Physical Exam Vital Signs: Temp Pulse Resp BP Pulse Ox 97.5 F 60 16 130/68 H 98 09/26/17 12:00 09/26/17 12:00 09/26/17 12:00 09/26/17 12:00 09/26/17 12:00 Intake & Output 09/25/17 09/26/17 09/27/17 06:59 06:59 06:59 Intake Total 1467 948 Output Total 550 1500 Balance 917 -552 Weight 106.3 kg 106.3 kg General appearance: PRESENT: no acute distress, morbidly obese, well-developed, well-nourished Head exam: PRESENT: atraumatic, normocephalic Eye exam: PRESENT: conjunctiva pink, EOMI. ABSENT: scleral icterus Ear exam: PRESENT: normal external ear exam Mouth exam: PRESENT: moist, tongue midline Neck exam: ABSENT: carotid bruit, JVD, lymphadenopathy, thyromegaly Respiratory exam: PRESENT: clear to auscultation arash. ABSENT: rales, rhonchi, wheezes Cardiovascular exam: PRESENT: RRR. ABSENT: diastolic murmur, rubs, systolic murmur Pulses: PRESENT: normal dorsalis pedis pul Vascular exam: PRESENT: normal capillary refill GI/Abdominal exam: PRESENT: normal bowel sounds, soft. ABSENT: distended, guarding, mass, organolmegaly, rebound, tenderness Rectal exam: PRESENT: deferred Extremities exam: PRESENT: +1 edema Neurological exam: PRESENT: alert, awake, oriented to person, oriented to place , oriented to time, oriented to situation, CN II-XII grossly intact. ABSENT: motor sensory deficit Psychiatric exam: PRESENT: appropriate affect, normal mood. ABSENT: homicidal ideation, suicidal ideation Skin exam: PRESENT: dry, intact, warm. ABSENT: cyanosis, rash Results Laboratory Results: 09/26/17 05:25 09/26/17 05:25 09/26/17 09/26/17 05:25 05:25 WBC 18.5 H RBC 3.52 L Hgb 10.4 L Hct 31.8 L MCV 91 MCH 29.7 MCHC 32.8 RDW 14.4 H Plt Count 328 Seg Neutrophils % Not Reportable Lymphocytes % Not Reportable Monocytes % Not Reportable Eosinophils % Not Reportable Basophils % Not Reportable Absolute Neutrophils Not Reportable Absolute Lymphocytes Not Reportable Absolute Monocytes Not Reportable Absolute Eosinophils Not Reportable Absolute Basophils Not Reportable Sodium 136.6 L Potassium 4.2 Chloride 94 L Carbon Dioxide 39 H Anion Gap 4 L BUN 51 H Creatinine 0.87 Est GFR ( Amer) > 60 Est GFR (Non-Af Amer) > 60 Glucose 83 Calcium 8.6 Total Bilirubin 0.2 AST 24 ALT 40 Alkaline Phosphatase 104 Total Protein 5.9 L Albumin 2.7 L 08/21/17 09/20/17 03:45 20:00 Creatine Kinase 586 H Troponin I 0.017 Impressions: Abdomen/Pelvis CT 08/20/17 23:35 IMPRESSION: Moderate dilation of the renal collecting system. Differential diagnosis includes bladder outlet obstruction/dysfunction. Cervical Spine CT 08/21/17 00:00 IMPRESSION: CHRONIC DEGENERATIVE CHANGES. NO ACUTE FINDINGS. Head CT 08/21/17 00:00 IMPRESSION: MILD CHRONIC CHANGES OF ATROPHY AND MICROVASCULAR ISCHEMIA. NO ACUTE PROCESS. EVIDENCE OF ACUTE STROKE: NO. Renal Ultrasound 08/21/17 00:00 IMPRESSION: UNREMARKABLE RENAL AND BLADDER ULTRASOUND. HYDRONEPHROSIS SEEN ON RECENT CT HAS IMPROVED. THIS PROBABLY WAS DUE TO DISTENDED BLADDER WHICH HAS RESOLVED WITH PLACEMENT OF YEPEZ CATHETER. Shoulder X-Ray 08/30/17 00:00 IMPRESSION: No acute fracture or malalignment Chest X-Ray 09/20/17 00:00 IMPRESSION: INTERVAL DEVELOPMENT OF MODERATE TO LARGE BILATERAL PLEURAL EFFUSIONS WITH ASSOCIATED AIRSPACE DISEASE PRESUMABLY REPRESENTING SUBSEGMENTAL ATELECTASIS. SUPERIMPOSED PNEUMONIA CANNOT BE EXCLUDED. CORRELATE WITH FEVER/ ELEVATED WHITE BLOOD CELL COUNT. Assessment & Plan - Diagnosis (1) Leukocytosis Is this a current diagnosis for this admission?: Yes Plan: Have requested that surgery reevaluate patient sacral wounds. Nursing reports that wounds have worsened. Will obtain blood culture, urine culture and wound culture. Do not want to place patient on antibiotics at this time due to patient being afebrile and vital signs stable. Patient's white blood cell count is the only elevated finding. Also patient recently was treated for C. difficile and do not want to start antibiotics unless they are truly indicated. (2) Debility Is this a current diagnosis for this admission?: Yes Plan: PT/OT evaluation and treatment. (3) Hypomagnesemia Is this a current diagnosis for this admission?: Yes Plan: Resolved. (4) Acute hypernatremia Is this a current diagnosis for this admission?: Yes Plan: Will continue to monitor. (5) Acute renal failure Qualifiers: Acute renal failure type: unspecified Qualified Code(s): N17.9 - Acute kidney failure, unspecified Is this a current diagnosis for this admission?: Yes Plan: Secondary to Dehydration: Resolved. (6) Anemia Qualifiers: Anemia type: unspecified type Qualified Code(s): D64.9 - Anemia, unspecified Is this a current diagnosis for this admission?: Yes Plan: Most likely of Chronic Disease: will continue iron replacement. (7) BPH (benign prostatic hyperplasia) Qualifiers: Lower urinary tract symptom detail: urinary obstruction Is this a current diagnosis for this admission?: Yes Plan: Yepez in place due to urinary retention. Urine culture no growth. Finasteride and tamsulosin. UA demonstrates no evidence of UTI. Urine culture no growth. (8) Bacteremia Is this a current diagnosis for this admission?: Yes Plan: Ruled out: Contaminant. (9) C. difficile diarrhea Is this a current diagnosis for this admission?: Yes Plan: Patient has been off vancomycin and Flagyl treatment. Repeat C diff neg. (10) Hypokalemia due to loss of potassium Is this a current diagnosis for this admission?: Yes Plan: Resolved (11) Neuropathy Is this a current diagnosis for this admission?: Yes Plan: supportive care (12) Sacral decubitus ulcer, stage IV Is this a current diagnosis for this admission?: Yes Plan: Status post debridement by surgery 09/15/2017: Have requested that patient be evaluated by surgery again. Patient's white blood cell count is elevated however patient is afebrile and vital signs are stable. Will order for repeat blood culture, urine culture and wound culture. (13) Wheezing Is this a current diagnosis for this admission?: Yes Plan: Etiology unclear: continue current care. (14) Bursitis of left shoulder Is this a current diagnosis for this admission?: Yes Plan: Physicial Therapy. Resolving. Patient able to move left upper extremity more. (15) SARA (obstructive sleep apnea) Is this a current diagnosis for this admission?: Yes Plan: Pt most likely has SARA. Patient refuses to use BiPAP (16) Atrial fibrillation Qualifiers: Atrial fibrillation type: chronic Qualified Code(s): I48.2 - Chronic atrial fibrillation Is this a current diagnosis for this admission?: Yes Plan: Continue metoprolol and aspirin. Patient high risk for falls. (17) Alkalosis Is this a current diagnosis for this admission?: Yes Plan: Most likely respiratory: Patient's ABG demonstrates compensated respiratory Alkalosis. Pt most likely has SARA. Will continue to monitor. Will need outpatient sleep study. (18) DVT prophylaxis Is this a current diagnosis for this admission?: Yes Plan: SCDs - Time Time Spent with patient: 15-24 minutes
--- NOTE | 2017-09-26 18:55 | PDOC CONSULTATION ---
Consultation Consult Date: 09/26/17 Consult reason:: pressure sore of sacrum debridment History of Present Illness Admission Date/PCP: 08/21/17 02:24 History of Present Illness: The patient is an 87 y/o male bedridden, with renal failure, hyperkalemia whoi has developed a large pressure sore which requires debridment. Past Medical History Cardiac Medical History: Reports: Hyperlipidema, Hypertension Denies: None, Atrial Fibrillation, Congestive Heart Failure, Coronary Artery Disease, DVT, Myocardial Infarction, Peripheral Vascular Disease, Pulmonary Embolism, Heart Murmur, Other Endocrine Medical History: Denies: None, Diabetes Mellitus Type 1, Diabetes Mellitus Type 2, Gestational Diabetes, Hyperthyroidism, Hypothyroidism, Obesity, Other Renal/ Medical History: Reports: Other - BPH Malignancy Medical History: Denies: None, Bone Cancer, Brain Cancer, Breast Cancer, Cervical Cancer, Colorectal Cancer, Leukemia, Liver Cancer, Lung Cancer, Lymphoma, Ovarian Cancer , Pancreatic Cancer, Renal (Kidney) Cancer, Skin Cancer, Other GI Medical History: Denies: None, Cirrhosis, Crohn's Disease, Diverticulitis, Gastroesophageal Reflux Disease, Hepatitis, Hiatal Hernia, Peptic Ulcer Disease, Ulcerative Colitis, Other Musculoskeltal Medical History: Reports: Arthritis Skin Medical History: Denies: None, Eczema, Psoriasis, Other Psychiatric Medical History: Denies: None, Alcohol Dependency, Attention Deficit Hyperactivity Disorder, Bipolar Disorder, Dementia, Depression, General Anxiety Disorder, Personality Disorder, Post Traumatic Stress Disorder, Schizoaffective Disorder, Substance Abuse, Tobacco Dependency, Other Hematology: Reports: Anemia Infectious Medical History: Denies: None, Clostridium Difficile, Hepatitis B, Hepatitis C, HIV, Methicillin-Resistant Staph Aureus, Vancomycin-Resistant Enterococci, Other Past Surgical History Past Surgical History: Reports: Appendectomy Social History Lives with: Family Smoking Status: Never Smoker Hx Recreational Drug Use: No Hx Prescription Drug Abuse: No - Advance Directive Resuscitation Status: Full Code Family History Family History: Reviewed & Not Pertinent Parental Family History Reviewed: No Children Family History Reviewed: No Sibling(s) Family History Reviewed.: No Medication/Allergy Home Medications: Aspirin [Ecotrin 81 mg EC Tablet] 81 mg PO DAILY 08/21/17 Atorvastatin Calcium [Lipitor 40 mg Tablet] 40 mg PO QHS 08/21/17 Cholecalciferol (Vitamin D3) [Vitamin D3] 1,000 unit PO DAILY 08/21/17 Docusate Calcium [Stool Softener] 240 mg PO DAILY 08/21/17 Finasteride [Proscar 5 mg Tablet] 5 mg PO DAILY 08/21/17 Furosemide [Lasix 20 mg Tablet] 20 mg PO DAILY 08/21/17 Hydrocodone/Acetaminophen [Hydrocodone-Acetamin 5-325 mg] 1 tab PO Q12HP PRN Lisinopril [Prinivil 40 mg Tablet] 40 mg PO DAILY 08/21/17 Melatonin [Melatonin 3 mg Tablet] 3 mg PO QHS 08/21/17 Multivitamin [Tab-A-Allen (Multiple Vitamin) Tablet] 1 tab PO DAILY 08/21/17 Nifedipine [Nifedipine ER] 60 mg PO DAILY 08/21/17 Tamsulosin HCl [Flomax 0.4 mg Cap.sr] 0.4 mg PO DAILY 08/21/17 Temazepam [Restoril 15 mg Capsule] 15 mg PO QHS 08/21/17 Tolterodine Tartrate [Tolterodine Tartrate ER] 4 mg PO DAILY 08/21/17 Tramadol HCl [Ultram 50 mg Tablet] 50 mg PO Q6HP PRN 08/21/17 Allergies/Adverse Reactions: No Known Allergies Allergy (Unverified 08/20/17 17:35) Physical Exam Vital Signs: Temp Pulse Resp BP Pulse Ox 97.5 F 83 16 130/68 H 98 09/26/17 12:00 09/26/17 14:00 09/26/17 12:00 09/26/17 12:00 09/26/17 12:00 Intake & Output 09/25/17 09/26/17 09/27/17 06:59 06:59 06:59 Intake Total 1467 948 Output Total 550 1500 Balance 917 -552 Weight 106.3 kg 106.3 kg General appearance: PRESENT: no acute distress Head exam: PRESENT: atraumatic Neck exam: PRESENT: full ROM Respiratory exam: PRESENT: clear to auscultation arash Cardiovascular exam: PRESENT: RRR GI/Abdominal exam: PRESENT: soft Musculoskeletal exam: PRESENT: full ROM Neurological exam: PRESENT: alert, altered, oriented to time, oriented to situation Skin exam: PRESENT: other - sacrum: 1) Large area with granulation tissue4 15x18 cm 2) Small area 8x8 cm in diameter adjacent to #1 covered with necrotic tissue as per pressure sore grade 3 Results Laboratory Results: 09/26/17 05:25 09/26/17 05:25 09/26/17 09/26/17 05:25 05:25 WBC 18.5 H RBC 3.52 L Hgb 10.4 L Hct 31.8 L MCV 91 MCH 29.7 MCHC 32.8 RDW 14.4 H Plt Count 328 Seg Neutrophils % Not Reportable Lymphocytes % Not Reportable Monocytes % Not Reportable Eosinophils % Not Reportable Basophils % Not Reportable Absolute Neutrophils Not Reportable Absolute Lymphocytes Not Reportable Absolute Monocytes Not Reportable Absolute Eosinophils Not Reportable Absolute Basophils Not Reportable Sodium 136.6 L Potassium 4.2 Chloride 94 L Carbon Dioxide 39 H Anion Gap 4 L BUN 51 H Creatinine 0.87 Est GFR ( Amer) > 60 Est GFR (Non-Af Amer) > 60 Glucose 83 Calcium 8.6 Total Bilirubin 0.2 AST 24 ALT 40 Alkaline Phosphatase 104 Total Protein 5.9 L Albumin 2.7 L 08/21/17 09/20/17 03:45 20:00 Creatine Kinase 586 H Troponin I 0.017 Impressions: Abdomen/Pelvis CT 08/20/17 23:35 IMPRESSION: Moderate dilation of the renal collecting system. Differential diagnosis includes bladder outlet obstruction/dysfunction. Cervical Spine CT 08/21/17 00:00 IMPRESSION: CHRONIC DEGENERATIVE CHANGES. NO ACUTE FINDINGS. Head CT 08/21/17 00:00 IMPRESSION: MILD CHRONIC CHANGES OF ATROPHY AND MICROVASCULAR ISCHEMIA. NO ACUTE PROCESS. EVIDENCE OF ACUTE STROKE: NO. Renal Ultrasound 08/21/17 00:00 IMPRESSION: UNREMARKABLE RENAL AND BLADDER ULTRASOUND. HYDRONEPHROSIS SEEN ON RECENT CT HAS IMPROVED. THIS PROBABLY WAS DUE TO DISTENDED BLADDER WHICH HAS RESOLVED WITH PLACEMENT OF YEPEZ CATHETER. Shoulder X-Ray 08/30/17 00:00 IMPRESSION: No acute fracture or malalignment Chest X-Ray 09/20/17 00:00 IMPRESSION: INTERVAL DEVELOPMENT OF MODERATE TO LARGE BILATERAL PLEURAL EFFUSIONS WITH ASSOCIATED AIRSPACE DISEASE PRESUMABLY REPRESENTING SUBSEGMENTAL ATELECTASIS. SUPERIMPOSED PNEUMONIA CANNOT BE EXCLUDED. CORRELATE WITH FEVER/ ELEVATED WHITE BLOOD CELL COUNT. Assessment & Plan - Diagnosis (1) Decubitus skin ulcer Qualifiers: Pressure ulcer location: sacral region Pressure ulcer stage: stage 3 Qualified Code(s): L89.153 - Pressure ulcer of sacral region, stage 3 Is this a current diagnosis for this admission?: Yes - Plan Summary Plan Summary: A/ second degree 8 x 8 cm sacral pressure sore P/ plan sharp debridment of second degree pressure sore at bedside daily dressing changes with triple antibiotic antibiotic x 5 days, then NS wet- to-dry dressign changes BID
--- NOTE | 2017-09-26 18:59 | Operative Report ---
Nonrecallable Operative Report PREOPERATIVE DIAGNOSIS: second degree 8 x 8 cm sacral pressure sore POSTOPERATIVE DIAGNOSIS: same OPERATION: sharp debridment of second degree sacral pressure sore measurement 8 x 8 cm in diameter SURGEON: PAIGE SIMON TISSUE REMOVED OR ALTERED: necrotic tissue of second degree sacral pressure sore COMPLICATIONS: none ESTIMATED BLOOD LOSS: < 5 Ml INTRAOPERATIVE FINDINGS: 8 X 8 cm necrotic tissue of second degree sacral pressure sore PROCEDURE: see dictation
[2017-09-26] MEDS: TAMSULOSIN HCL 0.4 MG CAP.SR.24H PO SCH (19:19)
--- NOTE | 2017-09-26 19:54 | OPERATIVE REPORT E ---
Operative Report NAME: JOVAN PUENTE : 1930 AGE: 87Y DATE OF SURGERY: 09/26/2017 ROOM: 433 PREOPERATIVE DIAGNOSIS: An 8 x 8 cm sacral grade 2 decubitus. POSTOPERATIVE DIAGNOSIS: An 8 x 8 cm sacral grade 2 decubitus. OPERATION: Sharp debridement of 8 x 8 cm sacral decubitus. SURGEON: PAIGE SIMON M.D. FILTERATION OPERATOR: None. ESTIMATED BLOOD LOSS: Minimal. COMPLICATIONS: None. ANESTHESIA: None. INDICATIONS AND FINDINGS: This is an 87-year-old male, bedridden with chronic renal failure, hyperkalemia, who has developed a large sacral second degree decubitus (involving skin and suoerficial subcutaneous tissues) that measures about 8 x 8 cm in diameter covered by necrotic tissue which requires debridment. PROCEDURE: The procedure was done at bedside. The patient was placed in lateral decubitus. The decubitus area was prepped with Betadine and debrided with sharp scissors and pickups; the 8 x 8 cm second degree sacral decubitus was debrided until good bleeding tissue was obtained. Following this, the area was covered with 4x4s soaked in Betadine, dry 4x4s and tape. The patient tolerated the procedure well. DICTATING PHYSICIAN: PAIGE SIMON M.D. [id number] PHY#: [id number] ID: [id number] JOB#: [id number] ACCT: [id number] cc:PAIGE SIMON M.D. > [facility]
[2017-09-26] MEDS: PHARMACY COMMUNICATION ORDER MC SCH (21:23)
[2017-09-26] MEDS: TEMAZEPAM 15 MG CAPSULE PO SCH (21:24)
[2017-09-26] MEDS: ATORVASTATIN CALCIUM 40 MG TABLET PO SCH (21:30)
[2017-09-27] MEDS: ACETAMINOPHEN 325 MG TABLET PO SCH ×3 (05:43→21:51)
[2017-09-27 06:16] LABS: HEMATOCRIT 34.6 % (37.9-51.0); HEMOGLOBIN 11.2 g/dL (13.5-17.0); MEAN CORPUSCULAR HEMOGLOBIN 29.4 pg (27.0-33.4); MEAN CORPUSCULAR HGB CONC 32.4 g/dL (32.0-36.0); MEAN CORPUSCULAR VOLUME 91 fl (80-97); PLATELET COUNT 358 10^3/uL (150-450); RED BLOOD COUNT 3.82 10^6/uL (4.35-5.55); RED CELL DISTRIBUTION WIDTH 14.8 % (11.5-14.0); WHITE BLOOD COUNT 17.9 10^3/uL (4.0-10.5)
[2017-09-27 06:27] LABS: ALANINE AMINOTRANSFERASE 37 U/L (21-72); ALBUMIN 2.8 g/dL (3.5-5.0); ALKALINE PHOSPHATASE 112 U/L (38-126); ASPARTATE AMINO TRANSFERASE 21 U/L (17-59); BILIRUBIN,DIRECT 0.2 mg/dL (0.0-0.4); BILIRUBIN,TOTAL 0.2 mg/dL (0.2-1.3); BLOOD UREA NITROGEN 46 mg/dL (7-20); CALCIUM 8.7 mg/dL (8.4-10.2); CARBON DIOXIDE 39 mmol/L (22-30); CHLORIDE 97 mmol/L (98-107); GLUCOSE 94 mg/dL (75-110); POTASSIUM 4.1 mmol/L (3.6-5.0); TOTAL PROTEIN 6.1 g/dL (6.3-8.2)
[2017-09-27 06:32] LABS: SODIUM 139.6 mmol/L (137-145)
[2017-09-27 06:39] LABS: ABSOLUTE LYMPHOCYTES# (MANUAL) 4.1 10^3/uL (0.5-4.7); ABSOLUTE MONOCYTES # (MANUAL) 0.5 10^3/uL (0.1-1.4); ABSOLUTE NEUTROPHILS# (MANUAL) 12.9 10^3/uL (1.7-8.2); BASOPHILS % (MANUAL) 0 % (0-2); EOSINOPHILS % (MANUAL) 2 % (0-6); LYMPHOCYTES % (MANUAL) 23 % (13-45); MONOCYTES % (MANUAL) 3 % (3-13); NUCLEATED RED BLOOD CELLS 1 /100 WBC (0); SEGMENTED NEUTROPHILS % (MAN) 72 % (42-78); TOTAL CELLS COUNTED 100
[2017-09-27 06:42] LABS: ANION GAP 4 (5-19); ANISOCYTOSIS SLIGHT; HYPOCHROMASIA SLIGHT; PLATELET COMMENT ADEQUATE
[2017-09-27] MEDS: BUDESONIDE NEB 0.5 MG/2 ML AMPUL NEB SCH ×2 (07:56→20:40)
[2017-09-27] MEDS: PREDNISONE 20 MG TABLET PO SCH (09:32)
[2017-09-27] MEDS: LISINOPRIL 10 MG TABLET PO SCH (09:32)
[2017-09-27] MEDS: FINASTERIDE 5 MG TABLET PO SCH (09:32)
[2017-09-27] MEDS: MULTIVITAMIN TABLET PO SCH (09:32)
[2017-09-27] MEDS: DOCUSATE SODIUM 100 MG CAPSULE PO SCH ×2 (09:32→17:46)
[2017-09-27] MEDS: TOLTERODINE TARTRATE 1 MG TABLET PO SCH ×2 (09:32→21:51)
[2017-09-27] MEDS: ASPIRIN 81 MG TABLET, ENT COATED PO SCH (09:32)
[2017-09-27] MEDS: NIFEDIPINE 30 MG TAB.ER.24 PO SCH (09:33)
[2017-09-27] MEDS: CHOLESTYRAMINE/ASPARTAME 4 GM PACKET PO SCH ×2 (09:33→11:02)
[2017-09-27] MEDS: CHOLECALCIFEROL (D3) 1,000 UNIT TABLET PO SCH (09:33)
[2017-09-27] MEDS: IRON POLYSACCHARIDES COMPLEX 150 MG CAPSULE PO SCH (09:33)
[2017-09-27] MEDS: METOPROLOL TARTRATE 25 MG TABLET PO SCH ×2 (09:33→21:51)
[2017-09-27] MEDS: LIDOCAINE 5% (700 MG) TRANSDERMAL ADH..PATCH TP SCH (09:34)
--- NOTE | 2017-09-27 16:34 | PDOC PROGRESS REPORT ---
Subjective Progress Note for:: 09/27/17 Subjective:: No new issues. Reason For Visit: DECUBITUS ULCERS,RENAL FAILURE,HYPERKALEMIA Physical Exam Vital Signs: Temp Pulse Resp BP Pulse Ox 97.4 F 68 21 H 134/64 H 99 09/27/17 15:50 09/27/17 15:50 09/27/17 15:50 09/27/17 15:50 09/27/17 15:50 Intake & Output 09/26/17 09/27/17 09/28/17 06:59 06:59 06:59 Intake Total 948 735 828 Output Total 1500 1300 400 Balance -552 -565 428 Weight 106.3 kg 105.7 kg General appearance: PRESENT: no acute distress, morbidly obese, well-developed, well-nourished Head exam: PRESENT: atraumatic, normocephalic Eye exam: PRESENT: conjunctiva pink, EOMI. ABSENT: scleral icterus Ear exam: PRESENT: normal external ear exam Mouth exam: PRESENT: moist, tongue midline Neck exam: ABSENT: carotid bruit, JVD, lymphadenopathy, thyromegaly Respiratory exam: PRESENT: clear to auscultation arash. ABSENT: rales, rhonchi, wheezes Cardiovascular exam: PRESENT: RRR. ABSENT: diastolic murmur, rubs, systolic murmur Pulses: PRESENT: normal dorsalis pedis pul Vascular exam: PRESENT: normal capillary refill GI/Abdominal exam: PRESENT: normal bowel sounds, soft. ABSENT: distended, guarding, mass, organolmegaly, rebound, tenderness Rectal exam: PRESENT: deferred Extremities exam: PRESENT: pedal edema Neurological exam: PRESENT: alert, awake, oriented to person, oriented to place , oriented to time, oriented to situation, CN II-XII grossly intact Skin exam: PRESENT: dry, intact, warm. ABSENT: cyanosis, rash Results Laboratory Results: 09/27/17 05:18 09/27/17 05:18 09/27/17 09/27/17 05:18 05:18 WBC 17.9 H RBC 3.82 L Hgb 11.2 L Hct 34.6 L MCV 91 MCH 29.4 MCHC 32.4 RDW 14.8 H Plt Count 358 Seg Neutrophils % Not Reportable Lymphocytes % Not Reportable Monocytes % Not Reportable Eosinophils % Not Reportable Basophils % Not Reportable Absolute Neutrophils Not Reportable Absolute Lymphocytes Not Reportable Absolute Monocytes Not Reportable Absolute Eosinophils Not Reportable Absolute Basophils Not Reportable Sodium 139.6 Potassium 4.1 Chloride 97 L Carbon Dioxide 39 H Anion Gap 4 L BUN 46 H Creatinine 0.90 Est GFR ( Amer) > 60 Est GFR (Non-Af Amer) > 60 Glucose 94 Calcium 8.7 Magnesium 2.2 Total Bilirubin 0.2 AST 21 ALT 37 Alkaline Phosphatase 112 Total Protein 6.1 L Albumin 2.8 L 08/21/17 09/20/17 03:45 20:00 Creatine Kinase 586 H Troponin I 0.017 Impressions: Abdomen/Pelvis CT 08/20/17 23:35 IMPRESSION: Moderate dilation of the renal collecting system. Differential diagnosis includes bladder outlet obstruction/dysfunction. Cervical Spine CT 08/21/17 00:00 IMPRESSION: CHRONIC DEGENERATIVE CHANGES. NO ACUTE FINDINGS. Head CT 08/21/17 00:00 IMPRESSION: MILD CHRONIC CHANGES OF ATROPHY AND MICROVASCULAR ISCHEMIA. NO ACUTE PROCESS. EVIDENCE OF ACUTE STROKE: NO. Renal Ultrasound 08/21/17 00:00 IMPRESSION: UNREMARKABLE RENAL AND BLADDER ULTRASOUND. HYDRONEPHROSIS SEEN ON RECENT CT HAS IMPROVED. THIS PROBABLY WAS DUE TO DISTENDED BLADDER WHICH HAS RESOLVED WITH PLACEMENT OF YEPEZ CATHETER. Shoulder X-Ray 08/30/17 00:00 IMPRESSION: No acute fracture or malalignment Chest X-Ray 09/20/17 00:00 IMPRESSION: INTERVAL DEVELOPMENT OF MODERATE TO LARGE BILATERAL PLEURAL EFFUSIONS WITH ASSOCIATED AIRSPACE DISEASE PRESUMABLY REPRESENTING SUBSEGMENTAL ATELECTASIS. SUPERIMPOSED PNEUMONIA CANNOT BE EXCLUDED. CORRELATE WITH FEVER/ ELEVATED WHITE BLOOD CELL COUNT. Assessment & Plan - Diagnosis (1) Leukocytosis Is this a current diagnosis for this admission?: Yes Plan: Surgery debrided patient's wounds yesterday. Will monitor patient's white count. Patient's blood culture and urine culture have demonstrated no growth currently. (2) Debility Is this a current diagnosis for this admission?: Yes Plan: PT/OT evaluation and treatment. (3) Hypomagnesemia Is this a current diagnosis for this admission?: Yes Plan: Resolved. (4) Acute hypernatremia Is this a current diagnosis for this admission?: Yes Plan: Will continue to monitor. (5) Acute renal failure Qualifiers: Acute renal failure type: unspecified Qualified Code(s): N17.9 - Acute kidney failure, unspecified Is this a current diagnosis for this admission?: Yes Plan: Secondary to Dehydration: Resolved. (6) Anemia Qualifiers: Anemia type: unspecified type Qualified Code(s): D64.9 - Anemia, unspecified Is this a current diagnosis for this admission?: Yes Plan: Most likely of Chronic Disease: will continue iron replacement. (7) BPH (benign prostatic hyperplasia) Qualifiers: Lower urinary tract symptom detail: urinary obstruction Is this a current diagnosis for this admission?: Yes Plan: Yepez in place due to urinary retention. Urine culture no growth. Finasteride and tamsulosin. UA demonstrates no evidence of UTI. Urine culture no growth. (8) Bacteremia Is this a current diagnosis for this admission?: Yes Plan: Ruled out: Contaminant. (9) C. difficile diarrhea Is this a current diagnosis for this admission?: Yes Plan: Patient has been off vancomycin and Flagyl treatment. Repeat C diff neg. (10) Hypokalemia due to loss of potassium Is this a current diagnosis for this admission?: Yes Plan: Resolved (11) Neuropathy Is this a current diagnosis for this admission?: Yes Plan: supportive care (12) Sacral decubitus ulcer, stage IV Is this a current diagnosis for this admission?: Yes Plan: Status post debridement by surgery 09/15/2017 and 09/26/2017: Appreciate surgery reevaluate in patient's sacral decubitus ulcers. (13) Wheezing Is this a current diagnosis for this admission?: Yes Plan: Etiology unclear: continue current care. (14) Bursitis of left shoulder Is this a current diagnosis for this admission?: Yes Plan: Physicial Therapy. Resolving. Patient able to move left upper extremity more. (15) SARA (obstructive sleep apnea) Is this a current diagnosis for this admission?: Yes Plan: Pt most likely has SARA. Patient refuses to use BiPAP (16) Atrial fibrillation Qualifiers: Atrial fibrillation type: chronic Qualified Code(s): I48.2 - Chronic atrial fibrillation Is this a current diagnosis for this admission?: Yes Plan: Continue metoprolol and aspirin. Patient high risk for falls. (17) Alkalosis Is this a current diagnosis for this admission?: Yes Plan: Most likely respiratory: Patient's ABG demonstrates compensated respiratory Alkalosis. Pt most likely has SARA. Will continue to monitor. Will need outpatient sleep study. (18) DVT prophylaxis Is this a current diagnosis for this admission?: Yes Plan: SCDs - Time Time Spent with patient: 15-24 minutes
[2017-09-27] MEDS: TAMSULOSIN HCL 0.4 MG CAP.SR.24H PO SCH (17:46)
[2017-09-27] MEDS: PHARMACY COMMUNICATION ORDER MC SCH (21:39)
[2017-09-27] MEDS: TEMAZEPAM 15 MG CAPSULE PO SCH (21:39)
[2017-09-27] MEDS: ATORVASTATIN CALCIUM 40 MG TABLET PO SCH (21:51)
[2017-09-28] MEDS: IPRATROPIUM/ALBUTEROL 0.5-2.5 MG/3 ML AMPUL NEB PRN ×2 (02:30→20:25)
[2017-09-28 05:12] LABS: HEMATOCRIT 33.4 % (37.9-51.0); HEMOGLOBIN 10.8 g/dL (13.5-17.0); MEAN CORPUSCULAR HEMOGLOBIN 29.4 pg (27.0-33.4); MEAN CORPUSCULAR HGB CONC 32.4 g/dL (32.0-36.0); MEAN CORPUSCULAR VOLUME 91 fl (80-97); RED BLOOD COUNT 3.68 10^6/uL (4.35-5.55); RED CELL DISTRIBUTION WIDTH 14.4 % (11.5-14.0); WHITE BLOOD COUNT 20.5 10^3/uL (4.0-10.5)
[2017-09-28 05:35] LABS: ABSOLUTE LYMPHOCYTES# (MANUAL) 4.1 10^3/uL (0.5-4.7); ABSOLUTE MONOCYTES # (MANUAL) 0.4 10^3/uL (0.1-1.4); BASOPHILS % (MANUAL) 0 % (0-2); EOSINOPHILS % (MANUAL) 0 % (0-6); LYMPHOCYTES % (MANUAL) 20 % (13-45); MONOCYTES % (MANUAL) 2 % (3-13); TOTAL CELLS COUNTED 100
[2017-09-28 05:36] LABS: ALANINE AMINOTRANSFERASE 39 U/L (21-72); ALBUMIN 2.8 g/dL (3.5-5.0); ALKALINE PHOSPHATASE 115 U/L (38-126); ANION GAP 7 (5-19); ASPARTATE AMINO TRANSFERASE 22 U/L (17-59); BILIRUBIN,DIRECT 0.2 mg/dL (0.0-0.4); BILIRUBIN,TOTAL 0.3 mg/dL (0.2-1.3); BLOOD UREA NITROGEN 43 mg/dL (7-20); CALCIUM 8.8 mg/dL (8.4-10.2); CARBON DIOXIDE 34 mmol/L (22-30); CHLORIDE 97 mmol/L (98-107); GLUCOSE 74 mg/dL (75-110); POTASSIUM 4.4 mmol/L (3.6-5.0); SODIUM 137.6 mmol/L (137-145)
[2017-09-28] MEDS: ACETAMINOPHEN 325 MG TABLET PO SCH ×3 (05:41→21:46)
[2017-09-28 05:42] LABS: ANISOCYTOSIS SLIGHT; HYPOCHROMASIA 1+; PLATELET COMMENT ADEQUATE; TOXIC GRANULATION SLIGHT
[2017-09-28 05:44] LABS: PLATELET COUNT 377 10^3/uL (150-450)
[2017-09-28 05:45] LABS: NUCLEATED RED BLOOD CELLS 0 /100 WBC (0)
[2017-09-28 05:46] LABS: SEGMENTED NEUTROPHILS % (MAN) 76 % (42-78)
[2017-09-28] MEDS: BUDESONIDE NEB 0.5 MG/2 ML AMPUL NEB SCH ×2 (08:48→20:26)
[2017-09-28] MEDS: CHOLECALCIFEROL (D3) 1,000 UNIT TABLET PO SCH (11:04)
[2017-09-28] MEDS: LISINOPRIL 10 MG TABLET PO SCH (11:04)
[2017-09-28] MEDS: IRON POLYSACCHARIDES COMPLEX 150 MG CAPSULE PO SCH (11:05)
[2017-09-28] MEDS: METOPROLOL TARTRATE 25 MG TABLET PO SCH ×2 (11:06→21:46)
[2017-09-28] MEDS: MULTIVITAMIN TABLET PO SCH (11:06)
[2017-09-28] MEDS: PREDNISONE 20 MG TABLET PO SCH (11:06)
[2017-09-28] MEDS: NIFEDIPINE 30 MG TAB.ER.24 PO SCH (11:07)
[2017-09-28] MEDS: TOLTERODINE TARTRATE 1 MG TABLET PO SCH ×2 (11:07→21:46)
[2017-09-28] MEDS: FINASTERIDE 5 MG TABLET PO SCH (11:08)
[2017-09-28] MEDS: DOCUSATE SODIUM 100 MG CAPSULE PO SCH ×2 (11:08→17:50)
[2017-09-28] MEDS: ASPIRIN 81 MG TABLET, ENT COATED PO SCH (11:08)
[2017-09-28] MEDS: LIDOCAINE 5% (700 MG) TRANSDERMAL ADH..PATCH TP SCH (11:15)
--- NOTE | 2017-09-28 14:45 | PDOC PROGRESS REPORT ---
Subjective Progress Note for:: 09/28/17 Subjective:: Pt states that he is ready to go. Reason For Visit: DECUBITUS ULCERS,RENAL FAILURE,HYPERKALEMIA Physical Exam Vital Signs: Temp Pulse Resp BP Pulse Ox 97.3 F 118 H 18 142/58 H 97 09/28/17 08:04 09/28/17 08:48 09/28/17 08:48 09/28/17 08:04 09/28/17 08:48 Intake & Output 09/27/17 09/28/17 09/29/17 06:59 06:59 06:59 Intake Total 735 1013 Output Total 1300 2100 Balance -565 -1087 Weight 105.7 kg 106.7 kg General appearance: PRESENT: no acute distress, morbidly obese, well-developed, well-nourished Head exam: PRESENT: atraumatic, normocephalic Eye exam: PRESENT: conjunctiva pink, EOMI. ABSENT: scleral icterus Ear exam: PRESENT: normal external ear exam Mouth exam: PRESENT: moist, tongue midline Neck exam: ABSENT: carotid bruit, JVD, lymphadenopathy, thyromegaly Respiratory exam: PRESENT: clear to auscultation arash. ABSENT: rales, rhonchi, wheezes Cardiovascular exam: PRESENT: RRR. ABSENT: diastolic murmur, rubs, systolic murmur Pulses: PRESENT: normal dorsalis pedis pul Vascular exam: PRESENT: normal capillary refill GI/Abdominal exam: PRESENT: normal bowel sounds, soft. ABSENT: distended, guarding, mass, organolmegaly, rebound, tenderness Rectal exam: PRESENT: deferred Extremities exam: PRESENT: full ROM. ABSENT: calf tenderness, clubbing, pedal edema Neurological exam: PRESENT: alert, awake, oriented to person, oriented to place , oriented to time, oriented to situation, CN II-XII grossly intact. ABSENT: motor sensory deficit Psychiatric exam: PRESENT: appropriate affect, normal mood. ABSENT: homicidal ideation, suicidal ideation Skin exam: PRESENT: dry, intact, warm. ABSENT: cyanosis, rash Results Laboratory Results: 09/28/17 04:22 09/28/17 04:22 09/28/17 09/28/17 04:22 04:22 WBC 20.5 H RBC 3.68 L Hgb 10.8 L Hct 33.4 L MCV 91 MCH 29.4 MCHC 32.4 RDW 14.4 H Plt Count 377 Seg Neutrophils % Not Reportable Lymphocytes % Not Reportable Monocytes % Not Reportable Eosinophils % Not Reportable Basophils % Not Reportable Absolute Neutrophils Not Reportable Absolute Lymphocytes Not Reportable Absolute Monocytes Not Reportable Absolute Eosinophils Not Reportable Absolute Basophils Not Reportable Sodium 137.6 Potassium 4.4 Chloride 97 L Carbon Dioxide 34 H Anion Gap 7 BUN 43 H Creatinine 0.84 Est GFR ( Amer) > 60 Est GFR (Non-Af Amer) > 60 Glucose 74 L Calcium 8.8 Magnesium 2.0 Total Bilirubin 0.3 AST 22 ALT 39 Alkaline Phosphatase 115 Total Protein 6.0 L Albumin 2.8 L 08/21/17 09/20/17 03:45 20:00 Creatine Kinase 586 H Troponin I 0.017 Impressions: Abdomen/Pelvis CT 08/20/17 23:35 IMPRESSION: Moderate dilation of the renal collecting system. Differential diagnosis includes bladder outlet obstruction/dysfunction. Cervical Spine CT 08/21/17 00:00 IMPRESSION: CHRONIC DEGENERATIVE CHANGES. NO ACUTE FINDINGS. Head CT 08/21/17 00:00 IMPRESSION: MILD CHRONIC CHANGES OF ATROPHY AND MICROVASCULAR ISCHEMIA. NO ACUTE PROCESS. EVIDENCE OF ACUTE STROKE: NO. Renal Ultrasound 08/21/17 00:00 IMPRESSION: UNREMARKABLE RENAL AND BLADDER ULTRASOUND. HYDRONEPHROSIS SEEN ON RECENT CT HAS IMPROVED. THIS PROBABLY WAS DUE TO DISTENDED BLADDER WHICH HAS RESOLVED WITH PLACEMENT OF MOCTEZUMA CATHETER. Shoulder X-Ray 08/30/17 00:00 IMPRESSION: No acute fracture or malalignment Chest X-Ray 09/20/17 00:00 IMPRESSION: INTERVAL DEVELOPMENT OF MODERATE TO LARGE BILATERAL PLEURAL EFFUSIONS WITH ASSOCIATED AIRSPACE DISEASE PRESUMABLY REPRESENTING SUBSEGMENTAL ATELECTASIS. SUPERIMPOSED PNEUMONIA CANNOT BE EXCLUDED. CORRELATE WITH FEVER/ ELEVATED WHITE BLOOD CELL COUNT. Assessment & Plan - Diagnosis (1) Acute cystitis Is this a current diagnosis for this admission?: Yes Plan: Secondary to Gram neg Abdoul: Keflex 500mg PO Q8. (2) Leukocytosis Is this a current diagnosis for this admission?: Yes Plan: Surgery debrided patient's wounds yesterday. Will monitor patient's white count. Urine consisted with UTI. (3) Debility Is this a current diagnosis for this admission?: Yes Plan: PT/OT evaluation and treatment. (4) Hypomagnesemia Is this a current diagnosis for this admission?: Yes Plan: Resolved. (5) Acute hypernatremia Is this a current diagnosis for this admission?: Yes Plan: Will continue to monitor. (6) Acute renal failure Qualifiers: Acute renal failure type: unspecified Qualified Code(s): N17.9 - Acute kidney failure, unspecified Is this a current diagnosis for this admission?: Yes Plan: Secondary to Dehydration: Resolved. (7) Anemia Qualifiers: Anemia type: unspecified type Qualified Code(s): D64.9 - Anemia, unspecified Is this a current diagnosis for this admission?: Yes Plan: Most likely of Chronic Disease: will continue iron replacement. (8) BPH (benign prostatic hyperplasia) Qualifiers: Lower urinary tract symptom detail: urinary obstruction Is this a current diagnosis for this admission?: Yes Plan: Moctezuma in place due to urinary retention. Finasteride and tamsulosin. Will have moctezuma replaced. (9) Bacteremia Is this a current diagnosis for this admission?: Yes Plan: Ruled out: Contaminant. (10) C. difficile diarrhea Is this a current diagnosis for this admission?: Yes Plan: Patient has been off vancomycin and Flagyl treatment. Repeat C diff neg. (11) Hypokalemia due to loss of potassium Is this a current diagnosis for this admission?: Yes Plan: Resolved (12) Neuropathy Is this a current diagnosis for this admission?: Yes Plan: supportive care (13) Sacral decubitus ulcer, stage IV Is this a current diagnosis for this admission?: Yes Plan: Status post debridement by surgery 09/15/2017 and 09/26/2017: Appreciate surgery reevaluate in patient's sacral decubitus ulcers. (14) Wheezing Is this a current diagnosis for this admission?: Yes Plan: Etiology unclear: continue current care. (15) Bursitis of left shoulder Is this a current diagnosis for this admission?: Yes Plan: Physicial Therapy. Resolving. Patient able to move left upper extremity more. (16) SARA (obstructive sleep apnea) Is this a current diagnosis for this admission?: Yes Plan: Pt most likely has SARA. Patient refuses to use BiPAP (17) Atrial fibrillation Qualifiers: Atrial fibrillation type: chronic Qualified Code(s): I48.2 - Chronic atrial fibrillation Is this a current diagnosis for this admission?: Yes Plan: Continue metoprolol and aspirin. Patient high risk for falls. (18) Alkalosis Is this a current diagnosis for this admission?: Yes Plan: Most likely respiratory: Patient's ABG demonstrates compensated respiratory Alkalosis. Pt most likely has SARA. Will continue to monitor. Will need outpatient sleep study. (19) DVT prophylaxis Is this a current diagnosis for this admission?: Yes Plan: SCDs - Time Time Spent with patient: 25-34 minutes
[2017-09-28] MEDS: TAMSULOSIN HCL 0.4 MG CAP.SR.24H PO SCH (17:50)
[2017-09-28] MEDS: ATORVASTATIN CALCIUM 40 MG TABLET PO SCH (21:46)
[2017-09-28] MEDS: CEPHALEXIN 500 MG CAPSULE PO SCH (21:46)
[2017-09-28] MEDS: TEMAZEPAM 15 MG CAPSULE PO SCH (21:52)
[2017-09-28] MEDS: PHARMACY COMMUNICATION ORDER MC SCH (22:01)
[2017-09-29] MEDS: CEPHALEXIN 500 MG CAPSULE PO SCH (05:52)
[2017-09-29] MEDS: ACETAMINOPHEN 325 MG TABLET PO SCH ×3 (05:52→22:32)
[2017-09-29 06:07] LABS: ABSOLUTE EOSINOPHILS # (AUTO) 0.1 10^3/uL (0.0-0.6); ABSOLUTE LYMPHOCYTES (AUTO) 3.9 10^3/uL (0.5-4.7); ABSOLUTE MONOCYTES (AUTO) 1.4 10^3/uL (0.1-1.4); ABSOLUTE NEUT (AUTO) 12.7 10^3/uL (1.7-8.2); BASOPHILS % (AUTO) 0.2 % (0-2); EOSINOPHILS % (AUTO) 0.6 % (0-6); HEMOGLOBIN 10.1 g/dL (13.5-17.0); LYMPHOCYTES % (AUTO) 21.5 % (13-45); MEAN CORPUSCULAR HEMOGLOBIN 29.5 pg (27.0-33.4); MEAN CORPUSCULAR HGB CONC 32.6 g/dL (32.0-36.0); MEAN CORPUSCULAR VOLUME 91 fl (80-97); MONOCYTES % (AUTO) 7.9 % (3-13); PLATELET COUNT 338 10^3/uL (150-450); RED BLOOD COUNT 3.43 10^6/uL (4.35-5.55); SEGMENTED NEUTROPHILS % (AUTO) 69.8 % (42-78); TOTAL CELLS COUNTED % (AUTO) 100 %; WHITE BLOOD COUNT 18.2 10^3/uL (4.0-10.5)
[2017-09-29 06:22] LABS: ALANINE AMINOTRANSFERASE 47 U/L (21-72); ALBUMIN 2.6 g/dL (3.5-5.0); ALKALINE PHOSPHATASE 109 U/L (38-126); ASPARTATE AMINO TRANSFERASE 30 U/L (17-59); BILIRUBIN,DIRECT 0.1 mg/dL (0.0-0.4); BILIRUBIN,TOTAL 0.1 mg/dL (0.2-1.3); BLOOD UREA NITROGEN 42 mg/dL (7-20); CALCIUM 8.6 mg/dL (8.4-10.2); CHLORIDE 99 mmol/L (98-107); GLUCOSE 74 mg/dL (75-110); POTASSIUM 4.6 mmol/L (3.6-5.0); SODIUM 140.8 mmol/L (137-145); TOTAL PROTEIN 5.5 g/dL (6.3-8.2)
[2017-09-29 06:29] LABS: ANION GAP 4 (5-19); CARBON DIOXIDE 38 mmol/L (22-30)
[2017-09-29] MEDS: BUDESONIDE NEB 0.5 MG/2 ML AMPUL NEB SCH ×2 (08:12→20:12)
[2017-09-29] MEDS: LIDOCAINE 5% (700 MG) TRANSDERMAL ADH..PATCH TP SCH (10:17)
[2017-09-29] MEDS: IRON POLYSACCHARIDES COMPLEX 150 MG CAPSULE PO SCH (10:29)
[2017-09-29] MEDS: TOLTERODINE TARTRATE 1 MG TABLET PO SCH ×2 (10:29→22:31)
[2017-09-29] MEDS: FINASTERIDE 5 MG TABLET PO SCH (10:29)
[2017-09-29] MEDS: CHOLECALCIFEROL (D3) 1,000 UNIT TABLET PO SCH (10:29)
[2017-09-29] MEDS: METOPROLOL TARTRATE 25 MG TABLET PO SCH ×2 (10:29→22:33)
[2017-09-29] MEDS: MULTIVITAMIN TABLET PO SCH (10:29)
[2017-09-29] MEDS: PREDNISONE 20 MG TABLET PO SCH (10:29)
[2017-09-29] MEDS: DOCUSATE SODIUM 100 MG CAPSULE PO SCH ×2 (10:29→18:32)
[2017-09-29] MEDS: ASPIRIN 81 MG TABLET, ENT COATED PO SCH (10:29)
--- NOTE | 2017-09-29 10:38 | PDOC PROGRESS REPORT ---
Subjective Progress Note for:: 09/29/17 Subjective:: No new issues. Reason For Visit: DECUBITUS ULCERS,RENAL FAILURE,HYPERKALEMIA Physical Exam Vital Signs: Temp Pulse Resp BP Pulse Ox 97.5 F 64 16 111/44 L 98 09/29/17 07:20 09/29/17 07:20 09/29/17 07:20 09/29/17 07:20 09/29/17 07:20 Intake & Output 09/28/17 09/29/17 09/30/17 06:59 06:59 06:59 Intake Total 1013 915 Output Total 2100 1250 Balance -1087 -335 Weight 106.7 kg 105.3 kg General appearance: PRESENT: no acute distress, morbidly obese, well-developed Head exam: PRESENT: atraumatic, normocephalic Eye exam: PRESENT: conjunctiva pink, EOMI. ABSENT: scleral icterus Ear exam: PRESENT: normal external ear exam Mouth exam: PRESENT: moist, tongue midline Neck exam: ABSENT: carotid bruit, JVD, lymphadenopathy, thyromegaly Respiratory exam: PRESENT: clear to auscultation arash. ABSENT: rales, rhonchi, wheezes Cardiovascular exam: PRESENT: RRR. ABSENT: diastolic murmur, rubs, systolic murmur Pulses: PRESENT: normal dorsalis pedis pul Vascular exam: PRESENT: normal capillary refill GI/Abdominal exam: PRESENT: normal bowel sounds, soft. ABSENT: distended, guarding, mass, organolmegaly, rebound, tenderness Rectal exam: PRESENT: deferred Extremities exam: ABSENT: calf tenderness, clubbing, pedal edema Neurological exam: PRESENT: alert, awake, oriented to person, oriented to place , oriented to time, oriented to situation, CN II-XII grossly intact. ABSENT: motor sensory deficit Psychiatric exam: PRESENT: appropriate affect, normal mood. ABSENT: homicidal ideation, suicidal ideation Skin exam: PRESENT: dry, intact, warm. ABSENT: cyanosis, rash Results Laboratory Results: 09/29/17 05:26 09/29/17 05:26 09/29/17 09/29/17 05:26 05:26 WBC 18.2 H RBC 3.43 L Hgb 10.1 L Hct 31.0 L MCV 91 MCH 29.5 MCHC 32.6 RDW 15.0 H Plt Count 338 Seg Neutrophils % 69.8 Lymphocytes % 21.5 Monocytes % 7.9 Eosinophils % 0.6 Basophils % 0.2 Absolute Neutrophils 12.7 H Absolute Lymphocytes 3.9 Absolute Monocytes 1.4 Absolute Eosinophils 0.1 Absolute Basophils 0.0 Sodium 140.8 Potassium 4.6 Chloride 99 Carbon Dioxide 38 H Anion Gap 4 L BUN 42 H Creatinine 0.89 Est GFR ( Amer) > 60 Est GFR (Non-Af Amer) > 60 Glucose 74 L Calcium 8.6 Magnesium 2.1 Total Bilirubin 0.1 L AST 30 ALT 47 Alkaline Phosphatase 109 Total Protein 5.5 L Albumin 2.6 L 09/26/17 18:55 Decubitis Ulcer - Buttocks Gram Stain - Final 09/27/17 02:46 Catheterized Urine Urine Culture - Final Morganella Morganii 08/21/17 09/20/17 03:45 20:00 Creatine Kinase 586 H Troponin I 0.017 Impressions: Abdomen/Pelvis CT 08/20/17 23:35 IMPRESSION: Moderate dilation of the renal collecting system. Differential diagnosis includes bladder outlet obstruction/dysfunction. Cervical Spine CT 08/21/17 00:00 IMPRESSION: CHRONIC DEGENERATIVE CHANGES. NO ACUTE FINDINGS. Head CT 08/21/17 00:00 IMPRESSION: MILD CHRONIC CHANGES OF ATROPHY AND MICROVASCULAR ISCHEMIA. NO ACUTE PROCESS. EVIDENCE OF ACUTE STROKE: NO. Renal Ultrasound 08/21/17 00:00 IMPRESSION: UNREMARKABLE RENAL AND BLADDER ULTRASOUND. HYDRONEPHROSIS SEEN ON RECENT CT HAS IMPROVED. THIS PROBABLY WAS DUE TO DISTENDED BLADDER WHICH HAS RESOLVED WITH PLACEMENT OF YEPEZ CATHETER. Shoulder X-Ray 08/30/17 00:00 IMPRESSION: No acute fracture or malalignment Chest X-Ray 09/20/17 00:00 IMPRESSION: INTERVAL DEVELOPMENT OF MODERATE TO LARGE BILATERAL PLEURAL EFFUSIONS WITH ASSOCIATED AIRSPACE DISEASE PRESUMABLY REPRESENTING SUBSEGMENTAL ATELECTASIS. SUPERIMPOSED PNEUMONIA CANNOT BE EXCLUDED. CORRELATE WITH FEVER/ ELEVATED WHITE BLOOD CELL COUNT. Assessment & Plan - Diagnosis (1) Acute cystitis Is this a current diagnosis for this admission?: Yes Plan: Secondary to Morganella Morganii: Rocephin for 5 days. Yepez has been replaced. (2) Leukocytosis Is this a current diagnosis for this admission?: Yes Plan: Surgery debrided patient's wounds yesterday. Will monitor patient's white count. Will repeat blood cultures. (3) Debility Is this a current diagnosis for this admission?: Yes Plan: PT/OT evaluation and treatment. (4) Hypomagnesemia Is this a current diagnosis for this admission?: Yes Plan: Resolved. (5) Acute hypernatremia Is this a current diagnosis for this admission?: Yes Plan: Will continue to monitor. (6) Acute renal failure Qualifiers: Acute renal failure type: unspecified Qualified Code(s): N17.9 - Acute kidney failure, unspecified Is this a current diagnosis for this admission?: Yes Plan: Secondary to Dehydration: Resolved. (7) Anemia Qualifiers: Anemia type: unspecified type Qualified Code(s): D64.9 - Anemia, unspecified Is this a current diagnosis for this admission?: Yes Plan: Most likely of Chronic Disease: will continue iron replacement. (8) BPH (benign prostatic hyperplasia) Qualifiers: Lower urinary tract symptom detail: urinary obstruction Is this a current diagnosis for this admission?: Yes Plan: Yepez in place due to urinary retention. Finasteride and tamsulosin. Yepez replaced. (9) Bacteremia Is this a current diagnosis for this admission?: Yes Plan: Ruled out: Contaminant. (10) C. difficile diarrhea Is this a current diagnosis for this admission?: Yes Plan: Patient has been off vancomycin and Flagyl treatment. Repeat C diff neg. (11) Hypokalemia due to loss of potassium Is this a current diagnosis for this admission?: Yes Plan: Resolved (12) Neuropathy Is this a current diagnosis for this admission?: Yes Plan: supportive care (13) Sacral decubitus ulcer, stage IV Is this a current diagnosis for this admission?: Yes Plan: Status post debridement by surgery 09/15/2017 and 09/26/2017: Appreciate surgery reevaluate in patient's sacral decubitus ulcers. (14) Wheezing Is this a current diagnosis for this admission?: Yes Plan: Etiology unclear: continue current care. (15) Bursitis of left shoulder Is this a current diagnosis for this admission?: Yes Plan: Physicial Therapy. Resolving. Patient able to move left upper extremity more. (16) SARA (obstructive sleep apnea) Is this a current diagnosis for this admission?: Yes Plan: Pt most likely has SARA. Patient refuses to use BiPAP (17) Atrial fibrillation Qualifiers: Atrial fibrillation type: chronic Qualified Code(s): I48.2 - Chronic atrial fibrillation Is this a current diagnosis for this admission?: Yes Plan: Continue metoprolol and aspirin. Patient high risk for falls. (18) Alkalosis Is this a current diagnosis for this admission?: Yes Plan: Most likely respiratory: Patient's ABG demonstrates compensated respiratory Alkalosis. Pt most likely has SARA. Will continue to monitor. Will need outpatient sleep study. (19) DVT prophylaxis Is this a current diagnosis for this admission?: Yes Plan: SCDs - Time Time Spent with patient: 15-24 minutes
[2017-09-29] MEDS: NIFEDIPINE 30 MG TAB.ER.24 PO SCH (13:12)
[2017-09-29] MEDS: LISINOPRIL 10 MG TABLET PO SCH (13:13)
[2017-09-29] MEDS: TAMSULOSIN HCL 0.4 MG CAP.SR.24H PO SCH (18:31)
[2017-09-29] MEDS: IPRATROPIUM/ALBUTEROL 0.5-2.5 MG/3 ML AMPUL NEB PRN (20:11)
[2017-09-29] MEDS: PHARMACY COMMUNICATION ORDER MC SCH (22:35)
[2017-09-29] MEDS: ATORVASTATIN CALCIUM 40 MG TABLET PO SCH (22:35)
[2017-09-29] MEDS: TEMAZEPAM 15 MG CAPSULE PO SCH (22:46)
[2017-09-30] MEDS: ACETAMINOPHEN 325 MG TABLET PO SCH ×3 (06:41→22:23)
[2017-09-30] MEDS: BUDESONIDE NEB 0.5 MG/2 ML AMPUL NEB SCH ×2 (08:40→20:23)
[2017-09-30] MEDS ORDERED: CEFTRIAXONE 1 GM/D5W RTU 1 GM/50 ML RTUPB IV SCH (10:00)
[2017-09-30] MEDS: CHOLECALCIFEROL (D3) 1,000 UNIT TABLET PO SCH (10:22)
[2017-09-30] MEDS: DOCUSATE SODIUM 100 MG CAPSULE PO SCH ×2 (10:22→18:50)
[2017-09-30] MEDS: ASPIRIN 81 MG TABLET, ENT COATED PO SCH (10:22)
[2017-09-30] MEDS: IRON POLYSACCHARIDES COMPLEX 150 MG CAPSULE PO SCH (10:22)
[2017-09-30] MEDS: METOPROLOL TARTRATE 25 MG TABLET PO SCH ×2 (10:22→22:25)
[2017-09-30] MEDS: PREDNISONE 20 MG TABLET PO SCH (10:22)
[2017-09-30] MEDS: NIFEDIPINE 30 MG TAB.ER.24 PO SCH (10:22)
[2017-09-30] MEDS: MULTIVITAMIN TABLET PO SCH (10:23)
[2017-09-30] MEDS: FINASTERIDE 5 MG TABLET PO SCH (10:23)
[2017-09-30] MEDS: LIDOCAINE 5% (700 MG) TRANSDERMAL ADH..PATCH TP SCH (10:24)
[2017-09-30] MEDS: LISINOPRIL 10 MG TABLET PO SCH (10:24)
[2017-09-30] MEDS: TOLTERODINE TARTRATE 1 MG TABLET PO SCH ×2 (10:24→22:25)
[2017-09-30] MEDS: CEFTRIAXONE SODIUM 1,000 MG in NORMAL SALINE 100 ML IV SCH (10:24)
--- NOTE | 2017-09-30 13:26 | PDOC PROGRESS REPORT ---
Subjective Progress Note for:: 09/30/17 Subjective:: Pt states that he is doing well this morning. Nursing states that pt is constipated. Reason For Visit: DECUBITUS ULCERS,RENAL FAILURE,HYPERKALEMIA Physical Exam Vital Signs: Temp Pulse Resp BP Pulse Ox 97.3 F 83 15 113/45 L 98 09/30/17 12:00 09/30/17 12:00 09/30/17 12:00 09/30/17 12:00 09/30/17 12:00 Intake & Output 09/29/17 09/30/17 10/01/17 06:59 06:59 06:59 Intake Total 915 842 Output Total 1250 1450 Balance -335 -608 Weight 105.3 kg 104.6 kg General appearance: PRESENT: no acute distress, morbidly obese, well-developed, well-nourished Head exam: PRESENT: atraumatic, normocephalic Eye exam: PRESENT: conjunctiva pink, EOMI. ABSENT: scleral icterus Ear exam: PRESENT: normal external ear exam Mouth exam: PRESENT: moist, tongue midline Neck exam: ABSENT: carotid bruit, JVD, lymphadenopathy, thyromegaly Respiratory exam: PRESENT: decreased breath sounds - diminished at bases. ABSENT: rales, rhonchi, wheezes Cardiovascular exam: PRESENT: RRR. ABSENT: diastolic murmur, rubs, systolic murmur Pulses: PRESENT: normal dorsalis pedis pul Vascular exam: PRESENT: normal capillary refill GI/Abdominal exam: PRESENT: normal bowel sounds, soft. ABSENT: distended, guarding, mass, organolmegaly, rebound, tenderness Rectal exam: PRESENT: deferred Extremities exam: PRESENT: full ROM. ABSENT: calf tenderness, clubbing, pedal edema Neurological exam: PRESENT: alert, awake, oriented to person, oriented to place , oriented to time, oriented to situation, CN II-XII grossly intact. ABSENT: motor sensory deficit Psychiatric exam: PRESENT: appropriate affect, normal mood. ABSENT: homicidal ideation, suicidal ideation Skin exam: PRESENT: dry, intact, warm. ABSENT: cyanosis, rash Results Laboratory Results: 09/29/17 05:26 09/29/17 05:26 09/26/17 18:55 Decubitis Ulcer - Buttocks Gram Stain - Final 09/26/17 18:55 Decubitis Ulcer - Buttocks Wound Culture - Final Proteus Mirabilis Enterococcus Faecalis(Group D) Group B Beta Streptococcus 08/21/17 09/20/17 03:45 20:00 Creatine Kinase 586 H Troponin I 0.017 Impressions: Abdomen/Pelvis CT 08/20/17 23:35 IMPRESSION: Moderate dilation of the renal collecting system. Differential diagnosis includes bladder outlet obstruction/dysfunction. Cervical Spine CT 08/21/17 00:00 IMPRESSION: CHRONIC DEGENERATIVE CHANGES. NO ACUTE FINDINGS. Head CT 08/21/17 00:00 IMPRESSION: MILD CHRONIC CHANGES OF ATROPHY AND MICROVASCULAR ISCHEMIA. NO ACUTE PROCESS. EVIDENCE OF ACUTE STROKE: NO. Renal Ultrasound 08/21/17 00:00 IMPRESSION: UNREMARKABLE RENAL AND BLADDER ULTRASOUND. HYDRONEPHROSIS SEEN ON RECENT CT HAS IMPROVED. THIS PROBABLY WAS DUE TO DISTENDED BLADDER WHICH HAS RESOLVED WITH PLACEMENT OF YEPEZ CATHETER. Shoulder X-Ray 08/30/17 00:00 IMPRESSION: No acute fracture or malalignment Chest X-Ray 09/20/17 00:00 IMPRESSION: INTERVAL DEVELOPMENT OF MODERATE TO LARGE BILATERAL PLEURAL EFFUSIONS WITH ASSOCIATED AIRSPACE DISEASE PRESUMABLY REPRESENTING SUBSEGMENTAL ATELECTASIS. SUPERIMPOSED PNEUMONIA CANNOT BE EXCLUDED. CORRELATE WITH FEVER/ ELEVATED WHITE BLOOD CELL COUNT. Assessment & Plan - Diagnosis (1) Acute cystitis Is this a current diagnosis for this admission?: Yes Plan: Secondary to Morganella Morganii: Rocephin for 2/5 days. Yepez has been replaced. (2) Leukocytosis Is this a current diagnosis for this admission?: Yes Plan: Acute Cystitis and Decubitis wounds: Blood culture no growth in 24 hours. Urine Culture demonstrating Morganeela Morganii. (3) Debility Is this a current diagnosis for this admission?: Yes Plan: PT/OT evaluation and treatment. (4) Hypomagnesemia Is this a current diagnosis for this admission?: Yes Plan: Resolved. (5) Acute hypernatremia Is this a current diagnosis for this admission?: Yes Plan: Will continue to monitor. (6) Acute renal failure Qualifiers: Acute renal failure type: unspecified Qualified Code(s): N17.9 - Acute kidney failure, unspecified Is this a current diagnosis for this admission?: Yes Plan: Secondary to Dehydration: Resolved. (7) Anemia Qualifiers: Anemia type: unspecified type Qualified Code(s): D64.9 - Anemia, unspecified Is this a current diagnosis for this admission?: Yes Plan: Most likely of Chronic Disease: will continue iron replacement. (8) BPH (benign prostatic hyperplasia) Qualifiers: Lower urinary tract symptom detail: urinary obstruction Is this a current diagnosis for this admission?: Yes Plan: Yepez in place due to urinary retention. Finasteride and tamsulosin. Yepez replaced. (9) Bacteremia Is this a current diagnosis for this admission?: Yes Plan: Ruled out: Contaminant. (10) C. difficile diarrhea Is this a current diagnosis for this admission?: Yes Plan: Patient has been off vancomycin and Flagyl treatment. Repeat C diff neg. (11) Hypokalemia due to loss of potassium Is this a current diagnosis for this admission?: Yes Plan: Resolved (12) Neuropathy Is this a current diagnosis for this admission?: Yes Plan: supportive care (13) Sacral decubitus ulcer, stage IV Is this a current diagnosis for this admission?: Yes Plan: Status post debridement by surgery 09/15/2017 and 09/26/2017: Appreciate surgery reevaluate in patient's sacral decubitus ulcers. (14) Wheezing Is this a current diagnosis for this admission?: Yes Plan: Etiology unclear: continue current care. (15) Bursitis of left shoulder Is this a current diagnosis for this admission?: Yes Plan: Physicial Therapy. Resolving. Patient able to move left upper extremity more. (16) SARA (obstructive sleep apnea) Is this a current diagnosis for this admission?: Yes Plan: Pt most likely has SARA. Patient refuses to use BiPAP (17) Atrial fibrillation Qualifiers: Atrial fibrillation type: chronic Qualified Code(s): I48.2 - Chronic atrial fibrillation Is this a current diagnosis for this admission?: Yes Plan: Continue metoprolol and aspirin. Patient high risk for falls. (18) Alkalosis Is this a current diagnosis for this admission?: Yes Plan: Most likely respiratory: Patient's ABG demonstrates compensated respiratory Alkalosis. Pt most likely has SARA. Will continue to monitor. Will need outpatient sleep study. (19) Constipation Is this a current diagnosis for this admission?: Yes Plan: Miralax and Colace. Will give Glycerin suppository. (20) DVT prophylaxis Is this a current diagnosis for this admission?: Yes Plan: SCDs - Time Time Spent with patient: 15-24 minutes
[2017-09-30] MEDS ORDERED: GLYCERIN (ADULT) SUPP.RECT PR PRN (16:00)
[2017-09-30] MEDS: TAMSULOSIN HCL 0.4 MG CAP.SR.24H PO SCH (18:49)
[2017-09-30] MEDS: IPRATROPIUM/ALBUTEROL 0.5-2.5 MG/3 ML AMPUL NEB PRN (20:23)
[2017-09-30] MEDS: ATORVASTATIN CALCIUM 40 MG TABLET PO SCH (22:24)
[2017-09-30] MEDS: PHARMACY COMMUNICATION ORDER MC SCH (23:27)
[2017-10-01] MEDS: ACETAMINOPHEN 325 MG TABLET PO SCH ×3 (06:31→23:58)
[2017-10-01 07:00] LABS: ABSOLUTE EOSINOPHILS # (AUTO) 0.1 10^3/uL (0.0-0.6); ABSOLUTE NEUT (AUTO) 10.9 10^3/uL (1.7-8.2); BASOPHILS % (AUTO) 0.1 % (0-2); EOSINOPHILS % (AUTO) 0.9 % (0-6); HEMATOCRIT 30.4 % (37.9-51.0); HEMOGLOBIN 9.9 g/dL (13.5-17.0); MEAN CORPUSCULAR HEMOGLOBIN 29.4 pg (27.0-33.4); MEAN CORPUSCULAR HGB CONC 32.4 g/dL (32.0-36.0); MEAN CORPUSCULAR VOLUME 91 fl (80-97); MONOCYTES % (AUTO) 6.2 % (3-13); PLATELET COUNT 337 10^3/uL (150-450); RED BLOOD COUNT 3.35 10^6/uL (4.35-5.55); RED CELL DISTRIBUTION WIDTH 14.9 % (11.5-14.0); SEGMENTED NEUTROPHILS % (AUTO) 67.8 % (42-78); TOTAL CELLS COUNTED % (AUTO) 100 %
[2017-10-01 07:26] LABS: ALANINE AMINOTRANSFERASE 47 U/L (21-72); ALBUMIN 2.7 g/dL (3.5-5.0); ALKALINE PHOSPHATASE 116 U/L (38-126); ASPARTATE AMINO TRANSFERASE 29 U/L (17-59); BILIRUBIN,DIRECT 0.1 mg/dL (0.0-0.4); BILIRUBIN,TOTAL 0.1 mg/dL (0.2-1.3); BLOOD UREA NITROGEN 58 mg/dL (7-20); CALCIUM 8.8 mg/dL (8.4-10.2); CARBON DIOXIDE 38 mmol/L (22-30); CHLORIDE 99 mmol/L (98-107); GLUCOSE 85 mg/dL (75-110); POTASSIUM 4.8 mmol/L (3.6-5.0); SODIUM 138.9 mmol/L (137-145)
[2017-10-01 07:35] LABS: ANION GAP 2 (5-19)
[2017-10-01] MEDS: IPRATROPIUM/ALBUTEROL 0.5-2.5 MG/3 ML AMPUL NEB PRN (08:04)
[2017-10-01] MEDS: BUDESONIDE NEB 0.5 MG/2 ML AMPUL NEB SCH ×2 (08:04→20:13)
[2017-10-01] MEDS: POLYETHYLENE GLYCOL 3350 POWDER 17 GM/1 PACKET PO SCH (10:03)
[2017-10-01] MEDS: CHOLECALCIFEROL (D3) 1,000 UNIT TABLET PO SCH (10:03)
[2017-10-01] MEDS: NIFEDIPINE 30 MG TAB.ER.24 PO SCH (10:03)
[2017-10-01] MEDS: METOPROLOL TARTRATE 25 MG TABLET PO SCH ×2 (10:03→23:58)
[2017-10-01] MEDS: MULTIVITAMIN TABLET PO SCH (10:04)
[2017-10-01] MEDS: DOCUSATE SODIUM 100 MG CAPSULE PO SCH ×2 (10:04→20:11)
[2017-10-01] MEDS: LISINOPRIL 10 MG TABLET PO SCH (10:04)
[2017-10-01] MEDS: PREDNISONE 20 MG TABLET PO SCH (10:04)
[2017-10-01] MEDS: FINASTERIDE 5 MG TABLET PO SCH (10:04)
[2017-10-01] MEDS: TOLTERODINE TARTRATE 1 MG TABLET PO SCH ×2 (10:04→23:57)
[2017-10-01] MEDS: ASPIRIN 81 MG TABLET, ENT COATED PO SCH (10:05)
[2017-10-01] MEDS: IRON POLYSACCHARIDES COMPLEX 150 MG CAPSULE PO SCH (10:05)
[2017-10-01] MEDS: CEFTRIAXONE SODIUM 1,000 MG in NORMAL SALINE 100 ML IV SCH (10:10)
[2017-10-01] MEDS: LIDOCAINE 5% (700 MG) TRANSDERMAL ADH..PATCH TP SCH (10:11)
--- NOTE | 2017-10-01 14:18 | PDOC PROGRESS REPORT ---
Subjective Progress Note for:: 10/01/17 Subjective:: No new issues. Case management states that pt may be able to go to [facility] this week. Reason For Visit: DECUBITUS ULCERS,RENAL FAILURE,HYPERKALEMIA Physical Exam Vital Signs: Temp Pulse Resp BP Pulse Ox 97.6 F 73 18 130/45 H 100 10/01/17 11:15 10/01/17 11:15 10/01/17 11:15 10/01/17 11:15 10/01/17 11:15 Intake & Output 09/30/17 10/01/17 10/02/17 06:59 06:59 06:59 Intake Total 842 1200 Output Total 1450 1800 Balance -608 -600 Weight 104.6 kg 105.2 kg General appearance: PRESENT: no acute distress, well-developed, well-nourished Head exam: PRESENT: atraumatic, normocephalic Eye exam: PRESENT: conjunctiva pink, EOMI. ABSENT: scleral icterus Ear exam: PRESENT: normal external ear exam Mouth exam: PRESENT: moist, tongue midline Neck exam: ABSENT: carotid bruit, JVD, lymphadenopathy, thyromegaly Respiratory exam: PRESENT: clear to auscultation arash. ABSENT: rales, rhonchi, wheezes Cardiovascular exam: PRESENT: RRR. ABSENT: diastolic murmur, rubs, systolic murmur Pulses: PRESENT: normal dorsalis pedis pul Vascular exam: PRESENT: normal capillary refill GI/Abdominal exam: PRESENT: normal bowel sounds, soft. ABSENT: distended, guarding, mass, organolmegaly, rebound, tenderness Rectal exam: PRESENT: deferred Extremities exam: PRESENT: full ROM. ABSENT: calf tenderness, clubbing, pedal edema Neurological exam: PRESENT: alert, awake, oriented to person, oriented to place , oriented to time, oriented to situation, CN II-XII grossly intact. ABSENT: motor sensory deficit Psychiatric exam: PRESENT: appropriate affect, normal mood. ABSENT: homicidal ideation, suicidal ideation Skin exam: PRESENT: dry, intact, warm. ABSENT: cyanosis, rash Results Laboratory Results: 10/01/17 06:24 10/01/17 06:24 10/01/17 10/01/17 06:24 06:24 WBC 16.0 H RBC 3.35 L Hgb 9.9 L Hct 30.4 L MCV 91 MCH 29.4 MCHC 32.4 RDW 14.9 H Plt Count 337 Seg Neutrophils % 67.8 Lymphocytes % 25.0 Monocytes % 6.2 Eosinophils % 0.9 Basophils % 0.1 Absolute Neutrophils 10.9 H Absolute Lymphocytes 4.0 Absolute Monocytes 1.0 Absolute Eosinophils 0.1 Absolute Basophils 0.0 Sodium 138.9 Potassium 4.8 Chloride 99 Carbon Dioxide 38 H Anion Gap 2 L BUN 58 H Creatinine 1.00 Est GFR ( Amer) > 60 Est GFR (Non-Af Amer) > 60 Glucose 85 Calcium 8.8 Magnesium 2.2 Total Bilirubin 0.1 L AST 29 ALT 47 Alkaline Phosphatase 116 Total Protein 6.0 L Albumin 2.7 L 08/21/17 09/20/17 03:45 20:00 Creatine Kinase 586 H Troponin I 0.017 Impressions: Abdomen/Pelvis CT 08/20/17 23:35 IMPRESSION: Moderate dilation of the renal collecting system. Differential diagnosis includes bladder outlet obstruction/dysfunction. Cervical Spine CT 08/21/17 00:00 IMPRESSION: CHRONIC DEGENERATIVE CHANGES. NO ACUTE FINDINGS. Head CT 08/21/17 00:00 IMPRESSION: MILD CHRONIC CHANGES OF ATROPHY AND MICROVASCULAR ISCHEMIA. NO ACUTE PROCESS. EVIDENCE OF ACUTE STROKE: NO. Renal Ultrasound 08/21/17 00:00 IMPRESSION: UNREMARKABLE RENAL AND BLADDER ULTRASOUND. HYDRONEPHROSIS SEEN ON RECENT CT HAS IMPROVED. THIS PROBABLY WAS DUE TO DISTENDED BLADDER WHICH HAS RESOLVED WITH PLACEMENT OF YEPEZ CATHETER. Shoulder X-Ray 08/30/17 00:00 IMPRESSION: No acute fracture or malalignment Chest X-Ray 09/20/17 00:00 IMPRESSION: INTERVAL DEVELOPMENT OF MODERATE TO LARGE BILATERAL PLEURAL EFFUSIONS WITH ASSOCIATED AIRSPACE DISEASE PRESUMABLY REPRESENTING SUBSEGMENTAL ATELECTASIS. SUPERIMPOSED PNEUMONIA CANNOT BE EXCLUDED. CORRELATE WITH FEVER/ ELEVATED WHITE BLOOD CELL COUNT. Assessment & Plan - Diagnosis (1) Acute cystitis Is this a current diagnosis for this admission?: Yes Plan: Secondary to Morganella Morganii: Rocephin for 3/5 days. Yepez has been replaced. (2) Leukocytosis Is this a current diagnosis for this admission?: Yes Plan: Acute Cystitis and Decubitis wounds: Blood culture no growth in 48 hours. Urine Culture demonstrating Morganeela Morganii. (3) Debility Is this a current diagnosis for this admission?: Yes Plan: PT/OT evaluation and treatment. (4) Hypomagnesemia Is this a current diagnosis for this admission?: Yes Plan: Resolved. (5) Acute hypernatremia Is this a current diagnosis for this admission?: Yes Plan: Resolved. (6) Acute renal failure Qualifiers: Acute renal failure type: unspecified Qualified Code(s): N17.9 - Acute kidney failure, unspecified Is this a current diagnosis for this admission?: Yes Plan: Secondary to Dehydration: Resolved. (7) Anemia Qualifiers: Anemia type: unspecified type Qualified Code(s): D64.9 - Anemia, unspecified Is this a current diagnosis for this admission?: Yes Plan: Iron Deficiency Anemia: will continue iron replacement. (8) BPH (benign prostatic hyperplasia) Qualifiers: Lower urinary tract symptom detail: urinary obstruction Is this a current diagnosis for this admission?: Yes Plan: Yepez in place due to urinary retention. Finasteride and tamsulosin. Yepez replaced. (9) Bacteremia Is this a current diagnosis for this admission?: Yes Plan: Ruled out: Contaminant. (10) C. difficile diarrhea Is this a current diagnosis for this admission?: Yes Plan: Patient has been off vancomycin and Flagyl treatment. Repeat C diff neg. (11) Hypokalemia due to loss of potassium Is this a current diagnosis for this admission?: Yes Plan: Resolved (12) Neuropathy Is this a current diagnosis for this admission?: Yes Plan: supportive care (13) Sacral decubitus ulcer, stage IV Is this a current diagnosis for this admission?: Yes Plan: Status post debridement by surgery 09/15/2017 and 09/26/2017: Appreciate surgery reevaluate in patient's sacral decubitus ulcers. (14) Wheezing Is this a current diagnosis for this admission?: Yes Plan: Etiology unclear: continue current care. (15) Bursitis of left shoulder Is this a current diagnosis for this admission?: Yes Plan: Physicial Therapy. Resolving. Patient able to move left upper extremity more. (16) SARA (obstructive sleep apnea) Is this a current diagnosis for this admission?: Yes Plan: Pt most likely has SARA. Patient refuses to use BiPAP (17) Atrial fibrillation Qualifiers: Atrial fibrillation type: chronic Qualified Code(s): I48.2 - Chronic atrial fibrillation Is this a current diagnosis for this admission?: Yes Plan: Continue metoprolol and aspirin. Patient high risk for falls. (18) Alkalosis Is this a current diagnosis for this admission?: Yes Plan: Most likely respiratory: Patient's ABG demonstrates compensated respiratory Alkalosis. Pt most likely has SARA. Will continue to monitor. Will need outpatient sleep study. (19) Constipation Is this a current diagnosis for this admission?: Yes Plan: Miralax and Colace. Will give Glycerin suppository. (20) DVT prophylaxis Is this a current diagnosis for this admission?: Yes Plan: SCDs - Time Time Spent with patient: 15-24 minutes
[2017-10-01] MEDS: TAMSULOSIN HCL 0.4 MG CAP.SR.24H PO SCH (20:11)
[2017-10-01] MEDS ORDERED: TEMAZEPAM 15 MG CAPSULE PO ONE (23:30)
[2017-10-01] MEDS: ATORVASTATIN CALCIUM 40 MG TABLET PO SCH (23:59)
[2017-10-02] MEDS: PHARMACY COMMUNICATION ORDER MC SCH ×2 (00:03→23:37)
[2017-10-02] MEDS: ACETAMINOPHEN 325 MG TABLET PO SCH ×3 (05:59→22:09)
[2017-10-02] MEDS: BUDESONIDE NEB 0.5 MG/2 ML AMPUL NEB SCH ×2 (08:31→20:31)
[2017-10-02] MEDS: ASPIRIN 81 MG TABLET, ENT COATED PO SCH (09:43)
[2017-10-02] MEDS: LISINOPRIL 10 MG TABLET PO SCH (09:43)
[2017-10-02] MEDS: TOLTERODINE TARTRATE 1 MG TABLET PO SCH ×2 (09:43→22:09)
[2017-10-02] MEDS: MULTIVITAMIN TABLET PO SCH (09:43)
[2017-10-02] MEDS: NIFEDIPINE 30 MG TAB.ER.24 PO SCH (09:43)
[2017-10-02] MEDS: IRON POLYSACCHARIDES COMPLEX 150 MG CAPSULE PO SCH (09:44)
[2017-10-02] MEDS: DOCUSATE SODIUM 100 MG CAPSULE PO SCH ×2 (09:44→18:09)
[2017-10-02] MEDS: FINASTERIDE 5 MG TABLET PO SCH (09:44)
[2017-10-02] MEDS: CHOLECALCIFEROL (D3) 1,000 UNIT TABLET PO SCH (09:44)
[2017-10-02] MEDS: PREDNISONE 20 MG TABLET PO SCH (09:44)
[2017-10-02] MEDS: POLYETHYLENE GLYCOL 3350 POWDER 17 GM/1 PACKET PO SCH (09:45)
[2017-10-02] MEDS: CEFTRIAXONE SODIUM 1,000 MG in NORMAL SALINE 100 ML IV SCH (09:45)
[2017-10-02] MEDS: LIDOCAINE 5% (700 MG) TRANSDERMAL ADH..PATCH TP SCH (09:46)
[2017-10-02] MEDS: LACTOBACILLUS ACIDOPHILUS 250 MG TAB PO SCH ×2 (11:38→18:09)
--- NOTE | 2017-10-02 16:09 | PDOC PROGRESS REPORT ---
Subjective Progress Note for:: 10/02/17 Subjective:: 87-year-old gentleman multiple medical problems who was admitted for stage IV decubitus ulcer, acute renal failure and hyperkalemia who is currently awaiting placement. After discussions between the patient and his daughter and Dr. Orlando a plan was made to pursue hospice and palliative care services. [facility]. 8 x 8 cm sacral decubitus ulcer was debrided by the surgical service on September 26. He was also diagnosed with C. difficile diarrhea. Currently being treated for acute cystitis secondary to Morganella and today is day 4 of 5 of Rocephin. Moctezuma catheter was replaced. No complaints at present. Is awaiting placement. Reason For Visit: DECUBITUS ULCERS,RENAL FAILURE,HYPERKALEMIA Physical Exam Vital Signs: Temp Pulse Resp BP Pulse Ox 97.8 F 60 14 115/51 L 99 10/02/17 07:28 10/02/17 08:30 10/02/17 08:30 10/02/17 07:28 10/02/17 08:30 Intake & Output 10/01/17 10/02/17 10/03/17 06:59 06:59 06:59 Intake Total 1200 1715 Output Total 1800 2150 Balance -600 -435 Weight 105.2 kg 106.2 kg General appearance: PRESENT: no acute distress Respiratory exam: PRESENT: clear to auscultation arash, symmetrical, unlabored. ABSENT: wheezes Cardiovascular exam: PRESENT: RRR GI/Abdominal exam: PRESENT: normal bowel sounds, soft. ABSENT: tenderness Rectal exam: PRESENT: deferred Extremities exam: ABSENT: pedal edema Results Laboratory Results: 10/01/17 06:24 10/01/17 06:24 09/26/17 16:36 Blood Blood Culture - Final NO GROWTH IN 5 DAYS 09/26/17 16:25 Blood Blood Culture - Final NO GROWTH IN 5 DAYS 08/21/17 09/20/17 03:45 20:00 Creatine Kinase 586 H Troponin I 0.017 Impressions: Abdomen/Pelvis CT 08/20/17 23:35 IMPRESSION: Moderate dilation of the renal collecting system. Differential diagnosis includes bladder outlet obstruction/dysfunction. Cervical Spine CT 08/21/17 00:00 IMPRESSION: CHRONIC DEGENERATIVE CHANGES. NO ACUTE FINDINGS. Head CT 08/21/17 00:00 IMPRESSION: MILD CHRONIC CHANGES OF ATROPHY AND MICROVASCULAR ISCHEMIA. NO ACUTE PROCESS. EVIDENCE OF ACUTE STROKE: NO. Renal Ultrasound 08/21/17 00:00 IMPRESSION: UNREMARKABLE RENAL AND BLADDER ULTRASOUND. HYDRONEPHROSIS SEEN ON RECENT CT HAS IMPROVED. THIS PROBABLY WAS DUE TO DISTENDED BLADDER WHICH HAS RESOLVED WITH PLACEMENT OF MOCTEZUMA CATHETER. Shoulder X-Ray 08/30/17 00:00 IMPRESSION: No acute fracture or malalignment Chest X-Ray 09/20/17 00:00 IMPRESSION: INTERVAL DEVELOPMENT OF MODERATE TO LARGE BILATERAL PLEURAL EFFUSIONS WITH ASSOCIATED AIRSPACE DISEASE PRESUMABLY REPRESENTING SUBSEGMENTAL ATELECTASIS. SUPERIMPOSED PNEUMONIA CANNOT BE EXCLUDED. CORRELATE WITH FEVER/ ELEVATED WHITE BLOOD CELL COUNT. Assessment & Plan - Diagnosis (1) Acute cystitis Is this a current diagnosis for this admission?: Yes Plan: Day 4 of 5 of Rocephin (2) Acute hypernatremia Is this a current diagnosis for this admission?: Yes Plan: resolved (3) Acute renal failure Qualifiers: Acute renal failure type: unspecified Qualified Code(s): N17.9 - Acute kidney failure, unspecified Is this a current diagnosis for this admission?: Yes Plan: resolved (4) Anemia Qualifiers: Anemia type: iron deficiency Is this a current diagnosis for this admission?: Yes Plan: stable (5) BPH (benign prostatic hyperplasia) Qualifiers: Lower urinary tract symptom detail: urinary obstruction Is this a current diagnosis for this admission?: Yes Plan: Finasteride and Flomax. Chronic moctezuma- replaced. (6) Bacteremia Is this a current diagnosis for this admission?: Yes Plan: Ruled out- contaminant. (7) Bursitis of left shoulder Is this a current diagnosis for this admission?: Yes Plan: Improved with PT. (8) C. difficile diarrhea Is this a current diagnosis for this admission?: Yes Plan: Treated with Flagyl and vancomycin. Repeat C. difficile negative. (9) Constipation Is this a current diagnosis for this admission?: Yes Plan: Stool softeners prn. (10) DVT prophylaxis Is this a current diagnosis for this admission?: Yes (11) Debility Is this a current diagnosis for this admission?: Yes (12) Decubitus skin ulcer Qualifiers: Pressure ulcer location: sacral region Pressure ulcer stage: stage 3 Qualified Code(s): L89.153 - Pressure ulcer of sacral region, stage 3 Is this a current diagnosis for this admission?: Yes Plan: s/p debridement. (13) Hypokalemia due to loss of potassium Is this a current diagnosis for this admission?: Yes Plan: resolved (14) Hypomagnesemia Is this a current diagnosis for this admission?: Yes Plan: replace prn (15) Neuropathy Is this a current diagnosis for this admission?: Yes Plan: supportive care - Time Time Spent with patient: 15-24 minutes - Plan Summary Plan Summary: Awaiting placement.
[2017-10-02] MEDS: TAMSULOSIN HCL 0.4 MG CAP.SR.24H PO SCH (18:09)
[2017-10-02] MEDS: ATORVASTATIN CALCIUM 40 MG TABLET PO SCH (22:09)
[2017-10-02] MEDS: TEMAZEPAM 15 MG CAPSULE PO SCH (22:09)
[2017-10-03] MEDS: ACETAMINOPHEN 325 MG TABLET PO SCH ×3 (06:04→21:11)
[2017-10-03] MEDS: BUDESONIDE NEB 0.5 MG/2 ML AMPUL NEB SCH ×2 (07:57→20:43)
[2017-10-03] MEDS: FINASTERIDE 5 MG TABLET PO SCH (09:16)
[2017-10-03] MEDS: PREDNISONE 20 MG TABLET PO SCH (09:16)
[2017-10-03] MEDS: DOCUSATE SODIUM 100 MG CAPSULE PO SCH ×2 (09:16→18:22)
[2017-10-03] MEDS: IRON POLYSACCHARIDES COMPLEX 150 MG CAPSULE PO SCH (09:17)
[2017-10-03] MEDS: ASPIRIN 81 MG TABLET, ENT COATED PO SCH (09:17)
[2017-10-03] MEDS: MULTIVITAMIN TABLET PO SCH (09:17)
[2017-10-03] MEDS: CHOLECALCIFEROL (D3) 1,000 UNIT TABLET PO SCH (09:17)
[2017-10-03] MEDS: LACTOBACILLUS ACIDOPHILUS 250 MG TAB PO SCH ×2 (09:17→18:19)
[2017-10-03] MEDS: TOLTERODINE TARTRATE 1 MG TABLET PO SCH ×2 (09:17→21:11)
[2017-10-03] MEDS: POLYETHYLENE GLYCOL 3350 POWDER 17 GM/1 PACKET PO SCH (09:18)
[2017-10-03] MEDS: NIFEDIPINE 30 MG TAB.ER.24 PO SCH (09:18)
[2017-10-03] MEDS: CEFTRIAXONE SODIUM 1,000 MG in NORMAL SALINE 100 ML IV SCH (09:19)
[2017-10-03] MEDS: LISINOPRIL 10 MG TABLET PO SCH (09:19)
[2017-10-03] MEDS: LIDOCAINE 5% (700 MG) TRANSDERMAL ADH..PATCH TP SCH (09:20)
[2017-10-03] MEDS: TAMSULOSIN HCL 0.4 MG CAP.SR.24H PO SCH (18:20)
--- NOTE | 2017-10-03 18:57 | PDOC PROGRESS REPORT ---
Subjective Progress Note for:: 10/03/17 Subjective:: 87-year-old gentleman multiple medical problems who was admitted for stage IV decubitus ulcer, acute renal failure and hyperkalemia who is currently awaiting placement. After discussions between the patient and his daughter and Dr. Orlando a plan was made to pursue hospice and palliative care services. [facility]. 8 x 8 cm sacral decubitus ulcer was debrided by the surgical service on September 26. He was also diagnosed with C. difficile diarrhea. Currently being treated for acute cystitis secondary to Morganella and today is day 4 of 5 of Rocephin. Yepez catheter was replaced. No complaints at present. Is awaiting placement. Reason For Visit: DECUBITUS ULCERS,RENAL FAILURE,HYPERKALEMIA Physical Exam Vital Signs: Temp Pulse Resp BP Pulse Ox 97.6 F 79 20 143/52 H 99 10/03/17 15:56 10/03/17 15:56 10/03/17 15:56 10/03/17 15:56 10/03/17 15:56 Intake & Output 10/02/17 10/03/17 10/04/17 06:59 06:59 06:59 Intake Total 1715 3140 1200 Output Total 2150 2400 650 Balance -435 740 550 Weight 106.2 kg 107.8 kg General appearance: PRESENT: no acute distress Eye exam: PRESENT: EOMI Ear exam: PRESENT: normal external ear exam Mouth exam: PRESENT: neck supple Neck exam: ABSENT: tracheal deviation Respiratory exam: PRESENT: clear to auscultation arash, symmetrical, unlabored Cardiovascular exam: PRESENT: RRR GI/Abdominal exam: PRESENT: normal bowel sounds, soft. ABSENT: tenderness Rectal exam: PRESENT: deferred Extremities exam: ABSENT: calf tenderness, pedal edema Results Laboratory Results: 10/01/17 06:24 10/01/17 06:24 08/21/17 09/20/17 03:45 20:00 Creatine Kinase 586 H Troponin I 0.017 Impressions: Abdomen/Pelvis CT 08/20/17 23:35 IMPRESSION: Moderate dilation of the renal collecting system. Differential diagnosis includes bladder outlet obstruction/dysfunction. Cervical Spine CT 08/21/17 00:00 IMPRESSION: CHRONIC DEGENERATIVE CHANGES. NO ACUTE FINDINGS. Head CT 08/21/17 00:00 IMPRESSION: MILD CHRONIC CHANGES OF ATROPHY AND MICROVASCULAR ISCHEMIA. NO ACUTE PROCESS. EVIDENCE OF ACUTE STROKE: NO. Renal Ultrasound 08/21/17 00:00 IMPRESSION: UNREMARKABLE RENAL AND BLADDER ULTRASOUND. HYDRONEPHROSIS SEEN ON RECENT CT HAS IMPROVED. THIS PROBABLY WAS DUE TO DISTENDED BLADDER WHICH HAS RESOLVED WITH PLACEMENT OF YEPEZ CATHETER. Shoulder X-Ray 08/30/17 00:00 IMPRESSION: No acute fracture or malalignment Chest X-Ray 09/20/17 00:00 IMPRESSION: INTERVAL DEVELOPMENT OF MODERATE TO LARGE BILATERAL PLEURAL EFFUSIONS WITH ASSOCIATED AIRSPACE DISEASE PRESUMABLY REPRESENTING SUBSEGMENTAL ATELECTASIS. SUPERIMPOSED PNEUMONIA CANNOT BE EXCLUDED. CORRELATE WITH FEVER/ ELEVATED WHITE BLOOD CELL COUNT. Assessment & Plan - Diagnosis (1) Acute cystitis Is this a current diagnosis for this admission?: Yes (2) Acute hypernatremia Is this a current diagnosis for this admission?: Yes (3) Acute renal failure Qualifiers: Acute renal failure type: unspecified Qualified Code(s): N17.9 - Acute kidney failure, unspecified Is this a current diagnosis for this admission?: Yes (4) Anemia Qualifiers: Anemia type: iron deficiency Is this a current diagnosis for this admission?: Yes (5) BPH (benign prostatic hyperplasia) Qualifiers: Lower urinary tract symptom detail: urinary obstruction Is this a current diagnosis for this admission?: Yes (6) Bacteremia Is this a current diagnosis for this admission?: Yes (7) Bursitis of left shoulder Is this a current diagnosis for this admission?: Yes (8) C. difficile diarrhea Is this a current diagnosis for this admission?: Yes (9) Constipation Is this a current diagnosis for this admission?: Yes (10) DVT prophylaxis Is this a current diagnosis for this admission?: Yes (11) Debility Is this a current diagnosis for this admission?: Yes (12) Decubitus skin ulcer Qualifiers: Pressure ulcer location: sacral region Pressure ulcer stage: stage 3 Qualified Code(s): L89.153 - Pressure ulcer of sacral region, stage 3 Is this a current diagnosis for this admission?: Yes (13) Hypokalemia due to loss of potassium Is this a current diagnosis for this admission?: Yes (14) Hypomagnesemia Is this a current diagnosis for this admission?: Yes (15) Neuropathy Is this a current diagnosis for this admission?: Yes (16) Leukocytosis Is this a current diagnosis for this admission?: Yes Plan: Due to acute cystitis. Resolved. (17) Chronic disease anemia Is this a current diagnosis for this admission?: Yes Plan: stable (18) Hypernatremia Is this a current diagnosis for this admission?: Yes Plan: resolved - Time Time Spent with patient: 25-34 minutes
[2017-10-03] MEDS: TEMAZEPAM 15 MG CAPSULE PO SCH (21:11)
[2017-10-03] MEDS: ATORVASTATIN CALCIUM 40 MG TABLET PO SCH (21:11)
[2017-10-03] MEDS: PHARMACY COMMUNICATION ORDER MC SCH (21:11)
[2017-10-04 06:08] LABS: ABSOLUTE EOSINOPHILS # (AUTO) 0.1 10^3/uL (0.0-0.6); ABSOLUTE MONOCYTES (AUTO) 1.2 10^3/uL (0.1-1.4); ABSOLUTE NEUT (AUTO) 9.5 10^3/uL (1.7-8.2); BASOPHILS % (AUTO) 0.2 % (0-2); EOSINOPHILS % (AUTO) 1.1 % (0-6); HEMATOCRIT 30.6 % (37.9-51.0); HEMOGLOBIN 9.8 g/dL (13.5-17.0); LYMPHOCYTES % (AUTO) 21.5 % (13-45); MEAN CORPUSCULAR HEMOGLOBIN 29.3 pg (27.0-33.4); MEAN CORPUSCULAR VOLUME 91 fl (80-97); MONOCYTES % (AUTO) 8.8 % (3-13); PLATELET COUNT 332 10^3/uL (150-450); RED BLOOD COUNT 3.35 10^6/uL (4.35-5.55); SEGMENTED NEUTROPHILS % (AUTO) 68.4 % (42-78); TOTAL CELLS COUNTED % (AUTO) 100 %; WHITE BLOOD COUNT 13.9 10^3/uL (4.0-10.5)
[2017-10-04] MEDS: ACETAMINOPHEN 325 MG TABLET PO SCH ×2 (06:23→13:21)
[2017-10-04 06:26] LABS: ANION GAP 5 (5-19); BLOOD UREA NITROGEN 36 mg/dL (7-20); CALCIUM 8.6 mg/dL (8.4-10.2); CARBON DIOXIDE 37 mmol/L (22-30); CHLORIDE 98 mmol/L (98-107); GLUCOSE 91 mg/dL (75-110); PHOSPHORUS 3.7 mg/dL (2.5-4.5); POTASSIUM 4.7 mmol/L (3.6-5.0); SODIUM 139.6 mmol/L (137-145)
[2017-10-04] MEDS: BUDESONIDE NEB 0.5 MG/2 ML AMPUL NEB SCH (08:58)
[2017-10-04] MEDS: LACTOBACILLUS ACIDOPHILUS 250 MG TAB PO SCH ×2 (10:49→18:05)
[2017-10-04] MEDS: ASPIRIN 81 MG TABLET, ENT COATED PO SCH (10:49)
[2017-10-04] MEDS: FINASTERIDE 5 MG TABLET PO SCH (10:49)
[2017-10-04] MEDS: MULTIVITAMIN TABLET PO SCH (10:49)
[2017-10-04] MEDS: PREDNISONE 20 MG TABLET PO SCH (10:49)
[2017-10-04] MEDS: TOLTERODINE TARTRATE 1 MG TABLET PO SCH ×2 (10:49→22:24)
[2017-10-04] MEDS: LISINOPRIL 10 MG TABLET PO SCH (10:50)
[2017-10-04] MEDS: CHOLECALCIFEROL (D3) 1,000 UNIT TABLET PO SCH (10:50)
[2017-10-04] MEDS: NIFEDIPINE 30 MG TAB.ER.24 PO SCH (10:50)
[2017-10-04] MEDS: CEFTRIAXONE SODIUM 1,000 MG in NORMAL SALINE 100 ML IV SCH (10:51)
[2017-10-04] MEDS: LIDOCAINE 5% (700 MG) TRANSDERMAL ADH..PATCH TP SCH (11:02)
[2017-10-04] MEDS: POLYETHYLENE GLYCOL 3350 POWDER 17 GM/1 PACKET PO SCH (11:02)
[2017-10-04] MEDS: DOCUSATE SODIUM 100 MG CAPSULE PO SCH ×2 (11:02→18:06)
--- NOTE | 2017-10-04 12:20 | PDOC PROGRESS REPORT ---
Subjective Progress Note for:: 10/04/17 Subjective:: 87-year-old gentleman multiple medical problems who was admitted for stage IV decubitus ulcer, acute renal failure and hyperkalemia who is currently awaiting placement. After discussions between the patient and his daughter and Dr. Orlando a plan was made to pursue hospice and palliative care services. [facility]. 8 x 8 cm sacral decubitus ulcer was debrided by the surgical service on September 26. He was also diagnosed with C. difficile diarrhea. Currently being treated for acute cystitis secondary to Morganella and today is day 4 of 5 of Rocephin. Moctezuma catheter was replaced. No complaints at present. Is awaiting placement. Reason For Visit: DECUBITUS ULCERS,RENAL FAILURE,HYPERKALEMIA Physical Exam Vital Signs: Temp Pulse Resp BP Pulse Ox 97.5 F 67 18 134/62 H 100 10/04/17 08:31 10/04/17 08:58 10/04/17 08:58 10/04/17 08:31 10/04/17 08:58 Intake & Output 10/03/17 10/04/17 10/05/17 06:59 06:59 06:59 Intake Total 3140 1440 Output Total 2400 950 Balance 740 490 Weight 107.8 kg General appearance: PRESENT: no acute distress Eye exam: PRESENT: EOMI Ear exam: PRESENT: normal external ear exam Mouth exam: PRESENT: moist, neck supple Neck exam: ABSENT: tracheal deviation Respiratory exam: PRESENT: clear to auscultation arash, symmetrical, unlabored Cardiovascular exam: PRESENT: RRR GI/Abdominal exam: PRESENT: normal bowel sounds, soft. ABSENT: tenderness Rectal exam: PRESENT: deferred Extremities exam: ABSENT: calf tenderness, pedal edema Neurological exam: PRESENT: alert, awake Skin exam: PRESENT: other Results Laboratory Results: 10/04/17 05:38 10/04/17 05:38 10/04/17 10/04/17 05:38 05:38 WBC 13.9 H RBC 3.35 L Hgb 9.8 L Hct 30.6 L MCV 91 MCH 29.3 MCHC 32.0 RDW 15.0 H Plt Count 332 Seg Neutrophils % 68.4 Lymphocytes % 21.5 Monocytes % 8.8 Eosinophils % 1.1 Basophils % 0.2 Absolute Neutrophils 9.5 H Absolute Lymphocytes 3.0 Absolute Monocytes 1.2 Absolute Eosinophils 0.1 Absolute Basophils 0.0 Sodium 139.6 Potassium 4.7 Chloride 98 Carbon Dioxide 37 H Anion Gap 5 BUN 36 H Creatinine 0.68 Est GFR ( Amer) > 60 Est GFR (Non-Af Amer) > 60 Glucose 91 Calcium 8.6 Phosphorus 3.7 Magnesium 2.2 09/29/17 09:39 Blood Blood Culture - Final NO GROWTH IN 5 DAYS 09/29/17 07:51 Blood Blood Culture - Final NO GROWTH IN 5 DAYS 08/21/17 09/20/17 03:45 20:00 Creatine Kinase 586 H Troponin I 0.017 Impressions: Abdomen/Pelvis CT 08/20/17 23:35 IMPRESSION: Moderate dilation of the renal collecting system. Differential diagnosis includes bladder outlet obstruction/dysfunction. Cervical Spine CT 08/21/17 00:00 IMPRESSION: CHRONIC DEGENERATIVE CHANGES. NO ACUTE FINDINGS. Head CT 08/21/17 00:00 IMPRESSION: MILD CHRONIC CHANGES OF ATROPHY AND MICROVASCULAR ISCHEMIA. NO ACUTE PROCESS. EVIDENCE OF ACUTE STROKE: NO. Renal Ultrasound 08/21/17 00:00 IMPRESSION: UNREMARKABLE RENAL AND BLADDER ULTRASOUND. HYDRONEPHROSIS SEEN ON RECENT CT HAS IMPROVED. THIS PROBABLY WAS DUE TO DISTENDED BLADDER WHICH HAS RESOLVED WITH PLACEMENT OF MOCTEZUMA CATHETER. Shoulder X-Ray 08/30/17 00:00 IMPRESSION: No acute fracture or malalignment Chest X-Ray 09/20/17 00:00 IMPRESSION: INTERVAL DEVELOPMENT OF MODERATE TO LARGE BILATERAL PLEURAL EFFUSIONS WITH ASSOCIATED AIRSPACE DISEASE PRESUMABLY REPRESENTING SUBSEGMENTAL ATELECTASIS. SUPERIMPOSED PNEUMONIA CANNOT BE EXCLUDED. CORRELATE WITH FEVER/ ELEVATED WHITE BLOOD CELL COUNT. Assessment & Plan - Diagnosis (1) Acute cystitis Is this a current diagnosis for this admission?: Yes Plan: Day 5 of 5 of Rocephin (2) Acute hypernatremia Is this a current diagnosis for this admission?: Yes Plan: resolved (3) Acute renal failure Qualifiers: Acute renal failure type: unspecified Qualified Code(s): N17.9 - Acute kidney failure, unspecified Is this a current diagnosis for this admission?: Yes Plan: resolved (4) Anemia Qualifiers: Anemia type: iron deficiency Is this a current diagnosis for this admission?: Yes Plan: stable (5) BPH (benign prostatic hyperplasia) Qualifiers: Lower urinary tract symptom detail: urinary obstruction Is this a current diagnosis for this admission?: Yes Plan: Finasteride and Flomax. Chronic moctezuma- replaced. (6) Bacteremia Is this a current diagnosis for this admission?: Yes Plan: Ruled out- contaminant. (7) Bursitis of left shoulder Is this a current diagnosis for this admission?: Yes Plan: Improved with PT. (8) C. difficile diarrhea Is this a current diagnosis for this admission?: Yes Plan: Treated with Flagyl and vancomycin. Repeat C. difficile negative. (9) Constipation Is this a current diagnosis for this admission?: Yes Plan: Stool softeners prn. (10) DVT prophylaxis Is this a current diagnosis for this admission?: Yes (11) Debility Is this a current diagnosis for this admission?: Yes (12) Decubitus skin ulcer Qualifiers: Pressure ulcer location: sacral region Pressure ulcer stage: stage 3 Qualified Code(s): L89.153 - Pressure ulcer of sacral region, stage 3 Is this a current diagnosis for this admission?: Yes Plan: s/p debridement. (13) Hypokalemia due to loss of potassium Is this a current diagnosis for this admission?: Yes Plan: resolved (14) Hypomagnesemia Is this a current diagnosis for this admission?: Yes Plan: replace prn (15) Neuropathy Is this a current diagnosis for this admission?: Yes Plan: supportive care (16) Leukocytosis Is this a current diagnosis for this admission?: Yes Plan: Due to acute cystitis. Resolved. (17) Chronic disease anemia Is this a current diagnosis for this admission?: Yes Plan: stable (18) Hypernatremia Is this a current diagnosis for this admission?: Yes Plan: resolved (19) Sacral decubitus ulcer, stage IV Is this a current diagnosis for this admission?: Yes Plan: Status post debridement. - Time Time Spent with patient: 15-24 minutes
[2017-10-04] MEDS: TAMSULOSIN HCL 0.4 MG CAP.SR.24H PO SCH (18:05)
[2017-10-04] MEDS: IPRATROPIUM/ALBUTEROL 0.5-2.5 MG/3 ML AMPUL NEB PRN (20:31)
[2017-10-04] MEDS: TEMAZEPAM 15 MG CAPSULE PO SCH (22:24)
[2017-10-04] MEDS: ATORVASTATIN CALCIUM 40 MG TABLET PO SCH (22:24)
[2017-10-04] MEDS: PHARMACY COMMUNICATION ORDER MC SCH (23:16)
[2017-10-05 09:21] VITALS: BP 134/46
--- NOTE | 2017-10-05 09:36 | PDOC DISCHARGE SUMMARY ---
General - Admit/Disc Date/PCP Admission Date/Primary Care Provider: 08/21/17 02:24 Discharge Date: 10/05/17 - Discharge Diagnosis (1) Acute cystitis Is this a current diagnosis for this admission?: Yes (2) Acute hypernatremia Is this a current diagnosis for this admission?: Yes (3) Acute renal failure Is this a current diagnosis for this admission?: Yes (4) Anemia Is this a current diagnosis for this admission?: Yes (5) BPH (benign prostatic hyperplasia) Is this a current diagnosis for this admission?: Yes (6) Bacteremia Is this a current diagnosis for this admission?: Yes (7) Bursitis of left shoulder Is this a current diagnosis for this admission?: Yes (8) C. difficile diarrhea Is this a current diagnosis for this admission?: Yes (9) Constipation Is this a current diagnosis for this admission?: Yes (10) DVT prophylaxis Is this a current diagnosis for this admission?: Yes (11) Debility Is this a current diagnosis for this admission?: Yes (12) Decubitus skin ulcer Is this a current diagnosis for this admission?: Yes (13) Hypokalemia due to loss of potassium Is this a current diagnosis for this admission?: Yes (14) Hypomagnesemia Is this a current diagnosis for this admission?: Yes (15) Neuropathy Is this a current diagnosis for this admission?: Yes (16) Leukocytosis Is this a current diagnosis for this admission?: Yes (17) Chronic disease anemia Is this a current diagnosis for this admission?: Yes (18) Hypernatremia Is this a current diagnosis for this admission?: Yes (19) Sacral decubitus ulcer, stage IV Is this a current diagnosis for this admission?: Yes - Additional Information Resuscitation Status: Full Code Home Medications: Aspirin [Ecotrin 81 mg EC Tablet] 81 mg PO DAILY 08/21/17 Atorvastatin Calcium [Lipitor 40 mg Tablet] 40 mg PO QHS 08/21/17 Cholecalciferol (Vitamin D3) [Vitamin D3] 1,000 unit PO DAILY 08/21/17 Docusate Calcium [Stool Softener] 240 mg PO DAILY 08/21/17 Furosemide [Lasix 20 mg Tablet] 20 mg PO DAILY 08/21/17 Hydrocodone/Acetaminophen [Hydrocodone-Acetamin 5-325 mg] 1 tab PO Q12HP PRN Melatonin [Melatonin 3 mg Tablet] 3 mg PO QHS 08/21/17 Multivitamin [Tab-A-Allen (Multiple Vitamin) Tablet] 1 tab PO DAILY 08/21/17 Nifedipine [Nifedipine ER] 60 mg PO DAILY 08/21/17 Tamsulosin HCl [Flomax 0.4 mg Cap.sr] 0.4 mg PO DAILY 08/21/17 Temazepam [Restoril 15 mg Capsule] 15 mg PO QHS 08/21/17 Tolterodine Tartrate [Tolterodine Tartrate ER] 4 mg PO DAILY 08/21/17 Tramadol HCl [Ultram 50 mg Tablet] 50 mg PO Q6HP PRN 08/21/17 Glycerin [Sani-Supp (Adult) 1 Ea Rect.supp] 1 each MA DAILYP PRN supp.rect Ipratropium/Albuterol Sulfate [Duoneb 3 ml Ampul] 3 ml NEB RTQ4HP PRN vial.neb 10/05/17 Lactobacillus Acidophilus [Bacid 250 mg Tablet] 250 mg PO BID tab 10/05/17 Lidocaine [Lidoderm 5% (700 mg) Transdermal Patch] 2 patch TP DAILY adh..patch 10/05/17 Lisinopril [Prinivil 10 mg Tablet] 40 mg PO DAILY tablet 10/05/17 Polyethylene Glycol 3350 [Miralax Powder 17 gm/Packet] 17 gm PO DAILY powd.pack 10/05/17 History of Present Illness History of Present Illness: JOVAN PUENTE is a 87 year old gentleman with multiple medical problems who was admitted for stage IV decubitus ulcer, acute renal failure and hyperkalemia. After discussions between the patient and his daughter and Dr. Orlando a plan was made to pursue hospice and palliative care services. 8 x 8 cm sacral decubitus ulcer was debrided by the surgical service on September 26. He was also diagnosed with C. difficile diarrhea and treated with Vanc and Metronidazole. Currently being treated for acute cystitis secondary to Morganella and was trated with Rocephin. Yepez catheter was replaced. He is being discharge to SNF. Lisibopril dose has been reduced from 40 mg to 10 mg PO daily. BP well controlled. Appetite is good, regular bowel movements with no diarrhea. Hospital Course Hospital Course: Discharge instructions: Follow up PCP in 1 week Follow up Urology in 1 -2 weeks Cardiac diet Protein supplemets with meals- TID Sacral decubitus wound dressing changes In Am 09/27/17, remove sacral decubitus bandages, cover entire sacral decubitus with triple antibiotic ointment, cover decubitis with NS moist 4x4, tape. Repeat this BID x 5 days, then discontinue the triple antibiotic ointment and BID cover sacral decubitus with NS moist 4x4's, dry 4x4's, tape. Physical Exam Vital Signs: Temp Pulse Resp BP Pulse Ox 98.5 F 71 20 134/46 H 99 10/05/17 07:35 10/05/17 07:35 10/05/17 07:35 10/05/17 07:35 10/05/17 07:35 Intake & Output 10/04/17 10/05/17 10/06/17 06:59 06:59 06:59 Intake Total 1440 1029 Output Total 950 400 Balance 490 629 General appearance: PRESENT: no acute distress Head exam: PRESENT: atraumatic, normocephalic Eye exam: PRESENT: EOMI Ear exam: PRESENT: normal external ear exam Mouth exam: PRESENT: moist Neck exam: ABSENT: tracheal deviation Respiratory exam: PRESENT: clear to auscultation arash, unlabored Cardiovascular exam: PRESENT: RRR Neurological exam: PRESENT: alert, awake Additional comments: stage 4 decubitus sacral ulcer Results Laboratory Results: 10/04/17 05:38 10/04/17 05:38 09/29/17 09:39 Blood Blood Culture - Final NO GROWTH IN 5 DAYS 09/29/17 07:51 Blood Blood Culture - Final NO GROWTH IN 5 DAYS 08/21/17 09/20/17 03:45 20:00 Creatine Kinase 586 H Troponin I 0.017 Impressions: Abdomen/Pelvis CT 08/20/17 23:35 IMPRESSION: Moderate dilation of the renal collecting system. Differential diagnosis includes bladder outlet obstruction/dysfunction. Cervical Spine CT 08/21/17 00:00 IMPRESSION: CHRONIC DEGENERATIVE CHANGES. NO ACUTE FINDINGS. Head CT 08/21/17 00:00 IMPRESSION: MILD CHRONIC CHANGES OF ATROPHY AND MICROVASCULAR ISCHEMIA. NO ACUTE PROCESS. EVIDENCE OF ACUTE STROKE: NO. Renal Ultrasound 08/21/17 00:00 IMPRESSION: UNREMARKABLE RENAL AND BLADDER ULTRASOUND. HYDRONEPHROSIS SEEN ON RECENT CT HAS IMPROVED. THIS PROBABLY WAS DUE TO DISTENDED BLADDER WHICH HAS RESOLVED WITH PLACEMENT OF YEPEZ CATHETER. Shoulder X-Ray 08/30/17 00:00 IMPRESSION: No acute fracture or malalignment Chest X-Ray 09/20/17 00:00 IMPRESSION: INTERVAL DEVELOPMENT OF MODERATE TO LARGE BILATERAL PLEURAL EFFUSIONS WITH ASSOCIATED AIRSPACE DISEASE PRESUMABLY REPRESENTING SUBSEGMENTAL ATELECTASIS. SUPERIMPOSED PNEUMONIA CANNOT BE EXCLUDED. CORRELATE WITH FEVER/ ELEVATED WHITE BLOOD CELL COUNT. Qualifiers - * PATEINT BEING DISCHARGED WITH ANY OF THE FOLLOWING DIAGNOSIS?: No Plan Time Spent: Greater than 30 Minutes
[2017-10-05] MEDS ORDERED: TAMSULOSIN HCL 0.4 MG CAP.SR.24H PO SCH (10:00)
[2017-10-05] MEDS: TOLTERODINE TARTRATE 1 MG TABLET PO SCH (10:21)
[2017-10-05] MEDS: LACTOBACILLUS ACIDOPHILUS 250 MG TAB PO SCH (10:22)
[2017-10-05] MEDS: ASPIRIN 81 MG TABLET, ENT COATED PO SCH (10:22)
[2017-10-05] MEDS: MULTIVITAMIN TABLET PO SCH (10:22)
[2017-10-05] MEDS: FINASTERIDE 5 MG TABLET PO SCH (10:22)
[2017-10-05] MEDS: CHOLECALCIFEROL (D3) 1,000 UNIT TABLET PO SCH (10:22)
[2017-10-05] MEDS: PREDNISONE 20 MG TABLET PO SCH (10:23)
[2017-10-05] MEDS: NIFEDIPINE 30 MG TAB.ER.24 PO SCH (10:25)
[2017-10-05] MEDS: POLYETHYLENE GLYCOL 3350 POWDER 17 GM/1 PACKET PO SCH (10:25)
[2017-10-05] MEDS: LISINOPRIL 10 MG TABLET PO SCH (10:25)
[2017-10-05] MEDS: DOCUSATE SODIUM 100 MG CAPSULE PO SCH (10:25)
[2017-10-05] MEDS: CEFTRIAXONE SODIUM 1,000 MG in NORMAL SALINE 100 ML IV SCH (10:25)
== END 2017-10-05 14:55 | DRG 570 ==
LOC: EDBD 16:43 → ER 16:43 → EH 08-21 02:24 → 4S 08-21 18:15
PROVIDERS: ADMIT Pediatrics; ATTEND Pediatrics
PROC: 0JB70ZZ Excision of Back Subcutaneous Tissue and Fascia, Open Approach (ICD-10-PCS; 2017-08-22)
PROC: 3E0F73Z Introduction of Anti-inflammatory into Respiratory Tract, Via Natural or Artificial Opening (ICD-10-PCS; 2017-08-22)
PROC: 0JD73ZZ Extraction of Back Subcutaneous Tissue and Fascia, Percutaneous Approach (ICD-10-PCS; 2017-09-14)
PROC: 0JB70ZZ Excision of Back Subcutaneous Tissue and Fascia, Open Approach (ICD-10-PCS; principal; 2017-09-17)
PROC: 5A09557 Assistance with Respiratory Ventilation, Greater than 96 Consecutive Hours, Continuous Positive Airway Pressure (ICD-10-PCS; 2017-09-17)
DX: L89.153 Pressure ulcer of sacral region, stage 3 (principal); J96.21 Acute and chronic respiratory failure with hypoxia; N30.01 Acute cystitis with hematuria; E87.0 Hyperosmolality and hypernatremia; N17.9 Acute kidney failure, unspecified; A04.72 Enterocolitis due to Clostridium difficile, not specified as recurrent; E87.3 Alkalosis; N13.8 Other obstructive and reflux uropathy; L89.154 Pressure ulcer of sacral region, stage 4; M75.52 Bursitis of left shoulder; K59.00 Constipation, unspecified; E87.6 Hypokalemia; E83.42 Hypomagnesemia; G62.9 Polyneuropathy, unspecified; D63.8 Anemia in other chronic diseases classified elsewhere; E87.5 Hyperkalemia; B96.4 Proteus (mirabilis) (morganii) as the cause of diseases classified elsewhere; I10 Essential (primary) hypertension; N40.1 Benign prostatic hyperplasia with lower urinary tract symptoms; E78.00 Pure hypercholesterolemia, unspecified; M19.90 Unspecified osteoarthritis, unspecified site; N13.9 Obstructive and reflux uropathy, unspecified; R62.7 Adult failure to thrive; F41.9 Anxiety disorder, unspecified; Z60.2 Problems related to living alone; Z51.5 Encounter for palliative care; E86.0 Dehydration; L08.9 Local infection of the skin and subcutaneous tissue, unspecified; L89.892 Pressure ulcer of other site, stage 2; I48.2 Chronic atrial fibrillation; G47.33 Obstructive sleep apnea (adult) (pediatric); Z66 Do not resuscitate; B95.1 Streptococcus, group B, as the cause of diseases classified elsewhere; B95.2 Enterococcus as the cause of diseases classified elsewhere; Z87.891 Personal history of nicotine dependence; Z79.899 Other long term (current) drug therapy; Z74.01 Bed confinement status; Z91.81 History of falling; Z91.14 Patient's other noncompliance with medication regimen
CPT/HCPCS: 00300; 36415; 36600; 70450; 71045; 72125; 74176; 76770; 80048; 80053; 80069; 81001; 82306; 82550; 82607; 82652; 82728; 82746; 82803; 82962; 83036; 83540; 83550; 83735; 84100; 84132; 84425; 84439; 84443; 84466; 84484; 85025; 85027; 85045; 85610; 85652; 85730; 86140; 86430; 87040; 87070; 87077; 87086; 87088; 87186; 87205; 87493; 93005; 93010; 94660; 96365; 96367; 99285; G8978-GP; G8979-GP; G8987-GO; G8988-GO; J0610; J0696; J1756; J1815; J1940; J1956; J2250; J2405; J2543; J2704; J2920; J2930; J3010; J3370; J3420; J3475; J3490; J7030; J7060; J7120; J7512; J7620

== ENCOUNTER 2018-03-03 09:44 | Inpatient (IN) | payer OTHER, MEDICARE ==
[2018-03-03] MEDS ORDERED: NORMAL SALINE 1000 ML 1,000 ML IV ONE ×4 (09:49→12:50)
--- NOTE | 2018-03-03 10:24 | ER Document Report ---
ED General - General Stated Complaint: WEAKNESS Time Seen by Provider: 03/03/18 09:50 Mode of Arrival: Medic Information source: Patient, Emergency Med Personnel, OM Records, Outside Facility Records Notes: 87-year-old male with hypertension, hyperlipidemia, chronic kidney disease, obstructive uropathy, sacral decubitus ulcer, anemia presents with complaint of weakness, slurred speech that started upon awakening. Per nursing staff at [facility] slurred speech started at 7:30 AM. Patient has a chronic Clement secondary to obstructive uropathy. TRAVEL OUTSIDE OF THE [place] IN LAST 30 DAYS: No - HPI Onset: Just prior to arrival - Related Data Allergies/Adverse Reactions: No Known Allergies Allergy (Unverified 08/20/17 17:35) Past Medical History - General Information source: Relative, [facility] Records, Outside Facility Records Cannot obtain history due to: Altered mental status - Social History Smoking Status: Former Smoker Frequency of alcohol use: None Drug Abuse: None Lives with: [facility] Family History: Reviewed & Not Pertinent - Past Medical History Cardiac Medical History: Reports: Hx Hypercholesterolemia, Hx Hypertension Denies: Hx Atrial Fibrillation, Hx Congestive Heart Failure, Hx Coronary Artery Disease, Hx DVT, Hx Heart Attack, Hx Peripheral Vascular Disease, Hx Pulmonary Embolism, Hx Heart Murmur Endocrine Medical History: Denies: Hx Diabetes Mellitus Type 1, Hx Diabetes Mellitus Type 2, Hx Hyperthyroidism, Hx Hypothyroidism Renal/ Medical History: Reports: Hx Benign Prostatic Hyperplasia, Hx Renal Insufficiency. Denies: Hx Peritoneal Dialysis Malignancy Medical History: Denies Hx Bone Cancer, Denies Hx Brain Cancer, Denies Hx Colorectal Cancer, Denies Hx Leukemia, Denies Hx Liver Cancer, Denies Hx Lung Cancer, Denies Hx Lymphoma, Denies Hx Pancreatic Cancer, Denies Hx Renal (Kidney) Cancer, Denies Hx Skin Cancer GI Medical History: Denies: Hx Cirrhosis, Hx Crohn's Disease, Hx Diverticulitis , Hx Gastroesophageal Reflux Disease, Hx Hepatitis, Hx Hiatal Hernia, Hx Ulcerative Colitis Musculoskeletal Medical History: Reports Hx Arthritis, Reports Hx Muscle Weakness Skin Medical History: Denies Hx Eczema, Denies Hx Psoriasis Psychiatric Medical History: Denies: Hx Attention Deficit Hyperactivity Disorder, Hx Bipolar Disorder, Hx Dementia, Hx Depression, Hx Personality Disorder, Hx Post Traumatic Stress Disorder, Hx Schizoaffective Disorder Infectious Medical History: Denies: Hx C-Diff, Hx Hepatitis, Hx HIV, Hx MRSA, Hx VRE Past Surgical History: Reports: Hx Appendectomy Review of Systems - Review of Systems -: Yes ROS unobtainable due to patient's medical condition Physical Exam - Vital signs Vitals: Pulse Resp BP Pulse Ox 57 L 19 97/47 L 96 03/03/18 09:45 03/03/18 09:45 03/03/18 09:45 03/03/18 09:45 Interpretation: Hypotensive, Bradycardic, Tachycardic, Other - Hypothermic - Notes Notes: PHYSICAL EXAMINATION: GENERAL: Ill-appearing. Mild distress. HEAD: Atraumatic, normocephalic. EYES: Pupils equal round and reactive to light, extraocular movements intact, sclera anicteric, conjunctiva are normal. ENT: Nares patent, oropharynx clear without exudates. Moist mucous membranes. NECK: Normal range of motion, supple without lymphadenopathy LUNGS: Breath sounds clear to auscultation bilaterally and equal. No wheezes rales or rhonchi. HEART: Bradycardic, irregular rhythm. No murmurs ABDOMEN: Soft, nontender, nondistended abdomen. No guarding, no rebound. No masses appreciated. Musculoskeletal: Patient unable to raise his arms or move his feet. No obvious deformity NEUROLOGICAL: Aphasic, alert, purposeful movement PSYCH: Normal mood, normal affect. SKIN: Large sacral decubitus ulcer Course - Re-evaluation Re-evalutation: Laboratory 03/03/18 03/03/18 03/03/18 09:28 09:28 09:28 WBC 13.6 H RBC 3.55 L Hgb 10.1 L Hct 30.5 L MCV 86 MCH 28.4 MCHC 33.0 RDW 17.5 H Plt Count 206 Seg Neutrophils % 87.8 H Lymphocytes % 7.3 L Monocytes % 4.1 Eosinophils % 0.3 Basophils % 0.5 Absolute Neutrophils 11.9 H Absolute Lymphocytes 1.0 Absolute Monocytes 0.6 Absolute Eosinophils 0.0 Absolute Basophils 0.1 PT 14.4 INR 1.07 APTT 43.4 H Carbonic Acid HCO3/H2CO3 Ratio ABG pH ABG pCO2 ABG pO2 ABG HCO3 ABG Total CO2 ABG O2 Saturation ABG Base Excess FiO2 Sodium 137.3 Potassium 4.3 Chloride 101 Carbon Dioxide 26 Anion Gap 10 BUN 68 H Creatinine 1.72 H Est GFR ( Amer) 46 L Est GFR (Non-Af Amer) 38 L Glucose 102 Lactic Acid Calcium 8.8 Phosphorus 6.7 H Magnesium 2.8 H Total Bilirubin 0.2 Direct Bilirubin 0.2 Neonat Total Bilirubin Not Reportable Neonat Direct Bilirubin Not Reportable Neonat Indirect Bili Not Reportable AST 70 H ALT 49 Alkaline Phosphatase 160 H Ammonia Troponin I NT-Pro-B Natriuret Pep Total Protein 6.9 Albumin 2.9 L TSH Urine Color Urine Appearance Urine pH Ur Specific [place] Urine Protein Urine Glucose (UA) Urine Ketones Urine Blood Urine Nitrite Urine Bilirubin Urine Urobilinogen Ur Leukocyte Esterase Urine WBC (Auto) Urine RBC (Auto) Urine Bacteria (Auto) Urine WBC Clumps Squamous Epi Cells Auto Urine Mucus (Auto) Urine Ascorbic Acid Serum Alcohol < 10 03/03/18 03/03/18 03/03/18 09:28 09:28 10:03 WBC RBC Hgb Hct MCV MCH MCHC RDW Plt Count Seg Neutrophils % Lymphocytes % Monocytes % Eosinophils % Basophils % Absolute Neutrophils Absolute Lymphocytes Absolute Monocytes Absolute Eosinophils Absolute Basophils PT INR APTT Carbonic Acid HCO3/H2CO3 Ratio ABG pH ABG pCO2 ABG pO2 ABG HCO3 ABG Total CO2 ABG O2 Saturation ABG Base Excess FiO2 Sodium Potassium Chloride Carbon Dioxide Anion Gap BUN Creatinine Est GFR ( Amer) Est GFR (Non-Af Amer) Glucose Lactic Acid Cancelled Calcium Phosphorus Magnesium Total Bilirubin Direct Bilirubin Neonat Total Bilirubin Neonat Direct Bilirubin Neonat Indirect Bili AST ALT Alkaline Phosphatase Ammonia Troponin I < 0.012 NT-Pro-B Natriuret Pep 470 H Total Protein Albumin TSH 1.71 Urine Color Urine Appearance Urine pH Ur Specific [place] Urine Protein Urine Glucose (UA) Urine Ketones Urine Blood Urine Nitrite Urine Bilirubin Urine Urobilinogen Ur Leukocyte Esterase Urine WBC (Auto) Urine RBC (Auto) Urine Bacteria (Auto) Urine WBC Clumps Squamous Epi Cells Auto Urine Mucus (Auto) Urine Ascorbic Acid Serum Alcohol 03/03/18 03/03/18 03/03/18 11:11 11:29 13:21 WBC RBC Hgb Hct MCV MCH MCHC RDW Plt Count Seg Neutrophils % Lymphocytes % Monocytes % Eosinophils % Basophils % Absolute Neutrophils Absolute Lymphocytes Absolute Monocytes Absolute Eosinophils Absolute Basophils PT INR APTT Carbonic Acid 1.44 H HCO3/H2CO3 Ratio 15:1 ABG pH 7.29 L ABG pCO2 47.8 H ABG pO2 96.3 ABG HCO3 22.5 ABG Total CO2 23.9 ABG O2 Saturation 96.5 ABG Base Excess -3.9 FiO2 2L Sodium Potassium Chloride Carbon Dioxide Anion Gap BUN Creatinine Est GFR ( Amer) Est GFR (Non-Af Amer) Glucose Lactic Acid 1.0 Calcium Phosphorus Magnesium Total Bilirubin Direct Bilirubin Neonat Total Bilirubin Neonat Direct Bilirubin Neonat Indirect Bili AST ALT Alkaline Phosphatase Ammonia Troponin I NT-Pro-B Natriuret Pep Total Protein Albumin TSH Urine Color YELLOW Urine Appearance TURBID Urine pH 5.0 Ur Specific [place] 1.016 Urine Protein 100 H Urine Glucose (UA) NEGATIVE Urine Ketones NEGATIVE Urine Blood LARGE H Urine Nitrite NEGATIVE Urine Bilirubin NEGATIVE Urine Urobilinogen NEGATIVE Ur Leukocyte Esterase LARGE H Urine WBC (Auto) >182 Urine RBC (Auto) >182 Urine Bacteria (Auto) TRACE Urine WBC Clumps MANY Squamous Epi Cells Auto 1 Urine Mucus (Auto) RARE Urine Ascorbic Acid 20 H Serum Alcohol 03/03/18 03/03/18 16:30 16:30 WBC RBC Hgb Hct MCV MCH MCHC RDW Plt Count Seg Neutrophils % Lymphocytes % Monocytes % Eosinophils % Basophils % Absolute Neutrophils Absolute Lymphocytes Absolute Monocytes Absolute Eosinophils Absolute Basophils PT INR APTT Carbonic Acid HCO3/H2CO3 Ratio ABG pH ABG pCO2 ABG pO2 ABG HCO3 ABG Total CO2 ABG O2 Saturation ABG Base Excess FiO2 Sodium Potassium Chloride Carbon Dioxide Anion Gap BUN Creatinine Est GFR ( Amer) Est GFR (Non-Af Amer) Glucose Lactic Acid 1.2 Calcium Phosphorus Magnesium Total Bilirubin Direct Bilirubin Neonat Total Bilirubin Neonat Direct Bilirubin Neonat Indirect Bili AST ALT Alkaline Phosphatase Ammonia < 8.7 L Troponin I NT-Pro-B Natriuret Pep Total Protein Albumin TSH Urine Color Urine Appearance Urine pH Ur Specific [place] Urine Protein Urine Glucose (UA) Urine Ketones Urine Blood Urine Nitrite Urine Bilirubin Urine Urobilinogen Ur Leukocyte Esterase Urine WBC (Auto) Urine RBC (Auto) Urine Bacteria (Auto) Urine WBC Clumps Squamous Epi Cells Auto Urine Mucus (Auto) Urine Ascorbic Acid Serum Alcohol Abdomen/Pelvis CT 03/03/18 00:00 IMPRESSION: NO SIGNIFICANT OR ACUTE PROCESS IN THE ABDOMEN OR PELVIS. Head CT 03/03/18 09:57 IMPRESSION: MILD CHRONIC CHANGES OF ATROPHY AND MICROVASCULAR ISCHEMIA. NO ACUTE PROCESS. EVIDENCE OF ACUTE STROKE: NO. Head CTA 03/03/18 09:57 IMPRESSION: NO CTA EVIDENCE OF STENOSIS OR ANEURYSM OF THE [place] OF ZIM[place]. Neck CTA 03/03/18 09:57 IMPRESSION: NORMAL CTA OF THE EXTRA-CRANIAL CAROTID AND VERTEBRAL ARTERIES. Chest X-Ray 03/03/18 09:58 IMPRESSION: BORDERLINE CARDIOMEGALY. HAZY PULMONARY OPACITIES COULD REPRESENT EARLY PNEUMONIA OR DEVELOPING PULMONARY EDEMA. 87-year-old male with hypertension, hyperlipidemia, chronic kidney disease, obstructive uropathy, sacral decubitus ulcer, anemia presents with complaint of weakness, slurred speech that started upon awakening. Per nursing staff at [facility] slurred speech started at 7:30 AM. Upon arrival patient is ill-appearing, unable to provide history. He is unable to speak although he is trying. Vital signs upon arrival were reviewed and patient is hypotensive, hypothermic, bradycardic. NIH scale maxed out due to patient's inability to follow commands. Warm IV fluids initiated, bear hugger placed. Despite 4 L of normal saline patient remains hypotensive. Levophed initiated. CT of the head as well as CTA of the head and neck were obtained and showed no acute process. Chest x-ray does show borderline cardiomegaly and possible early pneumonia. Patient did receive vancomycin and Zosyn. Patient has a leukocytosis and stable anemia. CMP does show renal insufficiency. Urinalysis consistent with urinary tract infection diagnosed. Likely secondary to chronic Clement use. MRI was ordered but patient not stable enough to be off monitor. Daughter aware that the patient will be admitted. Patient was accepted by the hospitalist to the ICU. Although the nursing facility reports that the time of onset was 7:30 AM which does make the patient in the TPA window after speaking to the daughter who states that the patient was confused and not himself yesterday the time of onset is not definitive and I feel at this point the risks of TPA outweigh the benefits. 03/03/18 10:41 Attempted to contact [facility] to confirm patient's normal baseline. Attempted to contact patient's child. No answer. Message left. 03/03/18 12:39 After multiple attempts I finally got in touch with the patient's daughter who states that she saw her father yesterday and that he seemed confused. She states that he is usually alert and oriented 4 and speaks normally. He is bedbound baseline. Time of onset unclear. She does believe that the patient possibly had a stroke previously but cannot tell me whether it was hemorrhagic or embolic. 03/03/18 19:02 03/03/18 19:11 - Vital Signs Vital signs: Temp Pulse Resp BP Pulse Ox 93.1 F L 83 22 H 94/62 L 94 03/03/18 18:00 03/03/18 18:00 03/03/18 18:10 03/03/18 18:10 03/03/18 18:10 - Laboratory Result Diagrams: 03/03/18 09:28 03/03/18 09:28 Laboratory results interpreted by me: 03/03/18 03/03/18 03/03/18 09:28 09:28 09:28 WBC 13.6 H RBC 3.55 L Hgb 10.1 L Hct 30.5 L RDW 17.5 H Seg Neutrophils % 87.8 H Lymphocytes % 7.3 L Absolute Neutrophils 11.9 H APTT 43.4 H BUN 68 H Creatinine 1.72 H Est GFR ( Amer) 46 L Est GFR (Non-Af Amer) 38 L Phosphorus 6.7 H Magnesium 2.8 H AST 70 H Alkaline Phosphatase 160 H NT-Pro-B Natriuret Pep Albumin 2.9 L Urine Protein Urine Blood Ur Leukocyte Esterase Urine Ascorbic Acid 03/03/18 03/03/18 09:28 11:11 WBC RBC Hgb Hct RDW Seg Neutrophils % Lymphocytes % Absolute Neutrophils APTT BUN Creatinine Est GFR ( Amer) Est GFR (Non-Af Amer) Phosphorus Magnesium AST Alkaline Phosphatase NT-Pro-B Natriuret Pep 470 H Albumin Urine Protein 100 H Urine Blood LARGE H Ur Leukocyte Esterase LARGE H Urine Ascorbic Acid 20 H - Diagnostic Test Radiology reviewed: Image reviewed, Reports reviewed - EKG Interpretation by Me Rate: Bradycardia Rhythm: A.Fib Critical Care Note - Critical Care Note Total time excluding time spent on procedures (mins): 45 - minutes of critical care time spent in direct contact evaluating and reevaluating the patient, treating symptoms, reviewing labs and studies and speaking with family and consultants excluding any procedures Discharge - Discharge Clinical Impression: Sacral decubitus ulcer, stage IV, Bursitis of left shoulder, Aphasia Sepsis Qualifiers: Sepsis type: sepsis due to unspecified organism Qualified Code(s): A41.9 - Sepsis, unspecified organism Altered mental status Qualifiers: Altered mental status type: somnolence Qualified Code(s): R40.0 - Somnolence Anemia Qualifiers: Anemia type: unspecified type Qualified Code(s): D64.9 - Anemia, unspecified Atrial fibrillation Qualifiers: Atrial fibrillation type: chronic Qualified Code(s): I48.2 - Chronic atrial fibrillation Acute renal failure Qualifiers: Acute renal failure type: unspecified Qualified Code(s): N17.9 - Acute kidney failure, unspecified Hypotension Qualifiers: Hypotension type: unspecified hypotension type Qualified Code(s): I95.9 - Hypotension, unspecified UTI (urinary tract infection) Qualifiers: Urinary tract infection type: catheter-associated UTI Indwelling urinary catheter type: unspecified Encounter type: initial encounter Qualified Code(s): T83.511A - Infection and inflammatory reaction due to indwelling urethral catheter, initial encounter; N39.0 - Urinary tract infection, site not specified ; N39.0 - Urinary tract infection, site not specified Hypothermia Qualifiers: Encounter type: initial encounter Qualified Code(s): T68.XXXA - Hypothermia, initial encounter Condition: Critical Disposition: ADMITTED INPATIENT Admitting Provider: Hospitalist Unit Admitted: ICU
[2018-03-03 10:26] LABS: INTERNATIONAL RATION (INR) 1.07; PROTHROMBIN TIME 14.4 SEC (11.4-15.4)
[2018-03-03 10:28] LABS: PARTIAL THROMBOPLASTIN TIME 43.4 SEC (23.5-35.8)
--- NOTE | 2018-03-03 10:37 | RADIOLOGY REPORT (SQ) ---
EXAM DESCRIPTION: CHEST SINGLE VIEW COMPLETED DATE/TIME: 03/03/2018 10:28 am REASON FOR STUDY: stroke like symptoms COMPARISON: 09/20/2017. EXAM PARAMETERS: NUMBER OF VIEWS: One view. TECHNIQUE: Single frontal radiographic view of the chest acquired. RADIATION DOSE: NA LIMITATIONS: None. FINDINGS: LUNGS AND PLEURA: Hazy parenchymal opacities in the left mid lung and right infrahilar reg ion. MEDIASTINUM AND HILAR STRUCTURES: No masses. Contour normal. HEART AND VASCULAR STRUCTURES: Borderline cardiomegaly. BONES: No acute findings. HARDWARE: None in the chest. OTHER: No other significant finding. IMPRESSION: BORDERLINE CARDIOMEGALY. HAZY PULMONARY OPACITIES COULD REPRESENT EARLY PNEUMONIA OR DE VELOPING PULMONARY EDEMA. TECHNICAL DOCUMENTATION: JOB ID: [id number] [employer]- All Rights Reserved Reading location - IP/workstation name: [email or web address]
[2018-03-03 10:38] LABS: ABSOLUTE BASOPHILS # (AUTO) 0.1 10^3/uL (0.0-0.2); ABSOLUTE MONOCYTES (AUTO) 0.6 10^3/uL (0.1-1.4); ABSOLUTE NEUT (AUTO) 11.9 10^3/uL (1.7-8.2); BASOPHILS % (AUTO) 0.5 % (0-2); EOSINOPHILS % (AUTO) 0.3 % (0-6); HEMATOCRIT 30.5 % (37.9-51.0); HEMOGLOBIN 10.1 g/dL (13.5-17.0); LYMPHOCYTES % (AUTO) 7.3 % (13-45); MEAN CORPUSCULAR HEMOGLOBIN 28.4 pg (27.0-33.4); MEAN CORPUSCULAR VOLUME 86 fl (80-97); MONOCYTES % (AUTO) 4.1 % (3-13); PLATELET COUNT 206 10^3/uL (150-450); RED BLOOD COUNT 3.55 10^6/uL (4.35-5.55); RED CELL DISTRIBUTION WIDTH 17.5 % (11.5-14.0); SEGMENTED NEUTROPHILS % (AUTO) 87.8 % (42-78); TOTAL CELLS COUNTED % (AUTO) 100 %; WHITE BLOOD COUNT 13.6 10^3/uL (4.0-10.5)
--- NOTE | 2018-03-03 10:39 | RADIOLOGY REPORT (SQ) ---
EXAM DESCRIPTION: CT HEAD WITHOUT COMPLETED DATE/TIME: 03/03/2018 10:28 am REASON FOR STUDY: slurred speech COMPARISON: 08/21/2017. TECHNIQUE: Axial images acquired through the brain without intravenous contrast. Images reviewed wi th bone, brain and subdural windows. Additional sagittal and coronal reconstructions were generated. Images stored on PACS. All CT scanners at this facility use dose modulation, iterative reconstruction, and/or weight based d osing when appropriate to reduce radiation dose to as low as reasonably achievable (ALARA). [facility]: Dose Right [facility]: CareDose [facility]: Dose Right [facility]: Teradose 4D [facility]: SecurActive RADIATION DOSE: mGy. LIMITATIONS: None. FINDINGS: VENTRICLES: Prominent. CEREBRUM: No masses. No hemorrhage. No midline shift. Areas of low density in the white matter mos t likely due to chronic micro-vascular ischemic change. No evidence for acute infarction. CEREBELLUM: No masses. No hemorrhage. No alteration of density. No evidence for acute infarction. EXTRAAXIAL SPACES: Mild age-related involutional change. No fluid collections. No masses. ORBITS AND GLOBE: No intra- or extraconal masses. Normal contour of globe without masses. CALVARIUM: No fracture. PARANASAL SINUSES: No fluid or mucosal thickening. SOFT TISSUES: No mass or hematoma. OTHER: No other significant finding. IMPRESSION: MILD CHRONIC CHANGES OF ATROPHY AND MICROVASCULAR ISCHEMIA. NO ACUTE PROCESS. EVIDENCE OF ACUTE STROKE: NO. TECHNICAL DOCUMENTATION: JOB ID: [id number] Quality ID # [id number]: Final reports with documentation of one or more dose reduction techniques (e.g., Au tomated exposure control, adjustment of the mA and/or kV according to patient size, use of iterative reconstruction technique) 2010 [employer]- All Rights Reserved Reading location - IP/workstation name: [email or web address]
[2018-03-03 10:42] LABS: ALANINE AMINOTRANSFERASE 49 U/L (21-72); ALBUMIN 2.9 g/dL (3.5-5.0); ALKALINE PHOSPHATASE 160 U/L (38-126); ANION GAP 10 (5-19); ASPARTATE AMINO TRANSFERASE 70 U/L (17-59); BILIRUBIN,DIRECT 0.2 mg/dL (0.0-0.4); BILIRUBIN,TOTAL 0.2 mg/dL (0.2-1.3); BLOOD UREA NITROGEN 68 mg/dL (7-20); CALCIUM 8.8 mg/dL (8.4-10.2); CARBON DIOXIDE 26 mmol/L (22-30); CHLORIDE 101 mmol/L (98-107); GLUCOSE 102 mg/dL (75-110); PHOSPHORUS 6.7 mg/dL (2.5-4.5); POTASSIUM 4.3 mmol/L (3.6-5.0); SODIUM 137.3 mmol/L (137-145); TOTAL PROTEIN 6.9 g/dL (6.3-8.2)
--- NOTE | 2018-03-03 10:42 | RADIOLOGY REPORT (SQ) ---
EXAM DESCRIPTION: CTA HEAD COMPLETED DATE/TIME: 03/03/2018 10:28 am REASON FOR STUDY: slurred speech COMPARISON: None. TECHNIQUE: Post IV contrast scanning, thin section axial imaging through the brain to evaluate the a rterial structures. Source and MIP images are saved and reviewed on PACS. Advanced 3D imaging as volume-rendering, MIPs, SSD performed? yes All CT scanners at this facility use dose modulation, iterative reconstruction, and/or weight based d osing when appropriate to reduce radiation dose to as low as reasonably achievable (ALARA). [facility]: Dose Right [facility]: CareDose [facility]: Dose Right [facility]: Teradose 4D [facility]: General Compression CONTRAST TYPE AND DOSE: 70 mL Omnipaque 350- low osmolar. RENAL FUNCTION: Not available. LIMITATIONS: None. FINDINGS: [place] OF [place]: The anterior, middle, posterior cerebral arteries are all patent. No ev idence of aneurysm or focal stenosis. POSTERIOR CIRCULATION: The distal vertebral arteries are patent as is the basilar artery. No aneurysm . BRAIN: No gross enhancing lesions as visualized. BONES: Intact as visualized. SINUSES: No fluid or mucosal thickening. OTHER: No other significant finding. IMPRESSION: NO CTA EVIDENCE OF STENOSIS OR ANEURYSM OF THE [place]NIK OF ZIMMER. TECHNICAL DOCUMENTATION: JOB ID: [id number] Quality ID # [id number]: Final reports with documentation of one or more dose reduction techniques (e.g., Au tomated exposure control, adjustment of the mA and/or kV according to patient size, use of iterative reconstruction technique) 2010 [employer]- All Rights Reserved Reading location - IP/workstation name: [email or web address]
[2018-03-03 10:43] LABS: ALCOHOL < 10 mg/dL (NONE DETECTED)
--- NOTE | 2018-03-03 10:45 | RADIOLOGY REPORT (SQ) ---
EXAM DESCRIPTION: CTA NECK COMPLETED DATE/TIME: 03/03/2018 10:28 am REASON FOR STUDY: slurred speech COMPARISON: None. TECHNIQUE: Axial dynamic scanning technique with dynamic contrast enhancement through the extra-bridge crane operator nial carotid and vertebral arteries. Multiplanar reconstruction. 3-D MIPS and Volume-rendered imag es acquired at the workstation and saved to PACS. Images are reviewed in soft tissue, bone, lung w indows. All CT scanners at this facility use dose modulation, iterative reconstruction, and/or weight based d osing when appropriate to reduce radiation dose to as low as reasonably achievable (ALARA). [facility]: Dose Right [facility]: CareDose [facility]: Dose Right [facility]: Teradose 4D [facility]: Proximagen CONTRAST TYPE AND DOSE: contrast/concentration: Isovue 350.00 mg/ml; Total Contrast Delivered: 70.0 ml; Total Saline Delivered: 75.0 ml RENAL FUNCTION: Not available. LIMITATIONS: None. FINDINGS: AORTIC ARCH: Normal three-vessel origin. Bilateral subclavian arteries are patent. No d issection. RIGHT CAROTIDS: Patent common, internal and external carotid arteries without suggestion of significa nt stenosis or irregular plaque. No dissection. RIGHT VERTEBRAL: Patent. No dissection. LEFT CAROTIDS: Patent common, internal and external carotid arteries without suggestion of significan t stenosis or irregular plaque. No dissection. LEFT VERTEBRAL: Patent. No dissection. OTHER: No other significant finding. OTHER: 3-D reconstructions confirm findings. IMPRESSION: NORMAL CTA OF THE EXTRA-CRANIAL CAROTID AND VERTEBRAL ARTERIES. COMMENT: Quality ID #[id number]: Measurements of distal internal carotid diameter were used as the denomina tor for stenosis measurement. TECHNICAL DOCUMENTATION: JOB ID: [id number] Quality ID # 436: Final reports with documentation of one or more dose reduction techniques (e.g., Au tomated exposure control, adjustment of the mA and/or kV according to patient size, use of iterative reconstruction technique) 2010 [employer]- All Rights Reserved Reading location - IP/workstation name: [email or web address]
[2018-03-03] MEDS ORDERED: PIPERACILLIN/TAZOBACTAM 3.375 GM VIAL IV ONE (10:49)
[2018-03-03] MEDS ORDERED: VANCOMYCIN HCL INJ 1000 MG VIAL IV ONE (10:49)
[2018-03-03 10:52] LABS: NT PRO BNP 470 pg/mL (<450)
[2018-03-03 10:54] LABS: TROPONIN I < 0.012 ng/mL
[2018-03-03 11:46] LABS: APPEARANCE,URINE TURBID; BILIRUBIN,URINE NEGATIVE (NEGATIVE); COLOR,URINE YELLOW; GLUCOSE, URINE NEGATIVE (NEGATIVE); KETONES,URINE NEGATIVE (NEGATIVE); LEUKOCYTE ESTERASE,URINE LARGE (NEGATIVE); NITRITE,URINE NEGATIVE (NEGATIVE); PROTEIN,URINE 100 mg/dL (NEGATIVE); URINE SPECIFIC GRAVITY 1.016; UROBILINOGEN,URINE NEGATIVE mg/dL (<2.0)
[2018-03-03] MEDS ORDERED: NOREPINEPHRINE BITARTRATE INJ/PF 4 MG/4 ML SDV IV ONE ×2 (13:26→18:29)
[2018-03-03] MEDS ORDERED: DEXTROSE 5%-WATER 250 ML with NOREPINEPHRINE BITARTRATE 4 MG IV PRN ×2 (13:42)
[2018-03-03] MEDS ORDERED: ONDANSETRON HCL INJ/PF 4 MG/2 ML SDV IV PRN (14:25)
[2018-03-03 14:37] LABS: ARTERIAL BLOOD BASE EXCESS -3.9 mmol/L; ARTERIAL BLOOD FIO2 2L; ARTERIAL BLOOD H2CO3 1.44 mmol/L (1.05-1.35); ARTERIAL BLOOD HCO3 22.5 mmol/L (20-26); ARTERIAL BLOOD O2 SATURATION 96.5 % (94-98); ARTERIAL BLOOD PCO2 47.8 mmHg (35-45); ARTERIAL BLOOD PH 7.29 (7.35-7.45); ARTERIAL BLOOD PO2 96.3 mmHg (80-100); ARTERIAL BLOOD TOTAL CO2 23.9 mmol/L (23-27)
--- NOTE | 2018-03-03 15:09 | PDOC H&P ---
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 Patient is bedbound currently living in a prison. Patient was brought from [facility] where he was noticed to have slurred speech and weakness upon awakening this morning at 7:30 AM. While in the ED was found to be hypothermic hypotensive with mild leukocytosis. Patient was admitted for workup of sepsis/stroke. ED was able to get in touch with her daughter who is stated that her father has been confused since yesterday but prior to that patient is usually alert and oriented 4 and speaks normally, however he is bedbound due to unclear reasons. She had also mentioned that her father possibly had a previous stroke but cannot say if it was hemorrhagic or embolic. Patient's speech is very slow and incoherent, he is somnolent however easily arousable. Per limited review of systems due to patient's mental status patient denies any symptoms. Past Medical History Cardiac Medical History: Reports: Hyperlipidema, Hypertension Denies: Atrial Fibrillation, Congestive Heart Failure, Coronary Artery Disease, DVT, Myocardial Infarction, Peripheral Vascular Disease, Pulmonary Embolism, Heart Murmur Endocrine Medical History: Denies: Diabetes Mellitus Type 1, Diabetes Mellitus Type 2, Hyperthyroidism, Hypothyroidism Malignancy Medical History: Denies: Bone Cancer, Brain Cancer, Breast Cancer, Cervical Cancer, Colorectal Cancer, Leukemia, Liver Cancer, Lung Cancer, Lymphoma, Ovarian Cancer , Pancreatic Cancer, Renal (Kidney) Cancer, Skin Cancer GI Medical History: Denies: Cirrhosis, Crohn's Disease, Diverticulitis, Gastroesophageal Reflux Disease, Hepatitis, Hiatal Hernia, Ulcerative Colitis Musculoskeltal Medical History: Reports: Arthritis Skin Medical History: Denies: Eczema, Psoriasis Psychiatric Medical History: Denies: Attention Deficit Hyperactivity Disorder, Bipolar Disorder, Dementia , Depression, Personality Disorder, Post Traumatic Stress Disorder, Schizoaffective Disorder Hematology: Reports: Anemia Infectious Medical History: Denies: Clostridium Difficile, HIV, Methicillin-Resistant Staph Aureus, Vancomycin-Resistant Enterococci Past Surgical History Past Surgical History: Reports: Appendectomy Social History Information Source: Outside Facility Records Lives with: [facility] Smoking Status: Unknown if Ever Smoked Hx Recreational Drug Use: No Hx Prescription Drug Abuse: No Family History Family History: Reviewed & Not Pertinent Parental Family History Reviewed: Yes Children Family History Reviewed: Yes Sibling(s) Family History Reviewed.: Yes Medication/Allergy Allergies/Adverse Reactions: No Known Allergies Allergy (Unverified 08/20/17 17:35) Review of Systems ROS unobtainable: Due to mental status Constitutional: PRESENT: as per HPI Physical Exam Vital Signs: Temp Pulse Resp BP Pulse Ox 57 L 17 108/62 98 03/03/18 11:15 03/03/18 14:16 03/03/18 14:16 03/03/18 14:16 General appearance: PRESENT: no acute distress, cooperative, hard of hearing, obese Head exam: PRESENT: atraumatic, normocephalic Eye exam: PRESENT: conjunctival injection Neck exam: PRESENT: carotid bruit. ABSENT: full ROM, JVD, lymphadenopathy, meningismus, tenderness, thyromegaly, tracheal deviation, tracheostomy, other Respiratory exam: PRESENT: clear to auscultation raash. ABSENT: rales, rhonchi, wheezes Cardiovascular exam: PRESENT: RRR. ABSENT: diastolic murmur, rubs, systolic murmur Pulses: PRESENT: normal carotid pulses, normal radial pulses, normal femoral pulses GI/Abdominal exam: PRESENT: normal bowel sounds, soft. ABSENT: distended, guarding, mass, organolmegaly, rebound, tenderness Gentrourinary exam: PRESENT: indwelling catheter. ABSENT: ecchymosis, erythema , lacerations, lesions, scrotal swelling, testicular tenderness, urethral discharge, other Musculoskeletal exam: PRESENT: normal inspection, tenderness Neurological exam: PRESENT: awake, other - Limited neurological exam due to patient's mental status. Patient follows simple commands however does not cooperate with neurological exam. Patient is able to move all his extremities.. ABSENT: alert, altered, oriented to person, oriented to place, oriented to time, oriented to situation, reflexes normal, abnormal gait, ataxia , CN II-XII grossly intact, motor sensory deficit, normal gait, aphasic Skin exam: PRESENT: dry, warm, other - Chronic decubitus ulcer.. ABSENT: cyanosis, rash Results Laboratory Results: 03/03/18 13:21 Carbonic Acid 1.44 H HCO3/H2CO3 Ratio 15:1 ABG pH 7.29 L ABG pCO2 47.8 H ABG pO2 96.3 ABG HCO3 22.5 ABG O2 Saturation 96.5 ABG Base Excess -3.9 FiO2 2L Impressions: Head CT 03/03/18 09:57 IMPRESSION: MILD CHRONIC CHANGES OF ATROPHY AND MICROVASCULAR ISCHEMIA. NO ACUTE PROCESS. EVIDENCE OF ACUTE STROKE: NO. Head CTA 03/03/18 09:57 IMPRESSION: NO CTA EVIDENCE OF STENOSIS OR ANEURYSM OF THE [place]. Neck CTA 03/03/18 09:57 IMPRESSION: NORMAL CTA OF THE EXTRA-CRANIAL CAROTID AND VERTEBRAL ARTERIES. Chest X-Ray 03/03/18 09:58 IMPRESSION: BORDERLINE CARDIOMEGALY. HAZY PULMONARY OPACITIES COULD REPRESENT EARLY PNEUMONIA OR DEVELOPING PULMONARY EDEMA. Assessment & Plan - Diagnosis (1) Altered mental status Qualifiers: Altered mental status type: somnolence Qualified Code(s): R40.0 - Somnolence Is this a current diagnosis for this admission?: Yes Plan: CT head CTA head and neck no acute abnormalities. Patient is currently on norepinephrine due to hypotension, once more stable will obtain an MRI of brain to rule out any acute stroke. Altered mental status could be due to underlying sepsis possibly due to UTI caused by obstructive uropathy and chronic indwelling catheter. Broad-spectrum antibiotics, blood wound sputum and urine culture. Started on aspirin and statins (2) UTI (urinary tract infection) Qualifiers: Urinary tract infection type: catheter-associated UTI Indwelling urinary catheter type: unspecified Encounter type: initial encounter Qualified Code( s): T83.511A - Infection and inflammatory reaction due to indwelling urethral catheter, initial encounter; N39.0 - Urinary tract infection, site not specified ; N39.0 - Urinary tract infection, site not specified Plan: Clement catheter removed and a new one placed. CT abdomen to rule out pyelonephritis. Broad-spectrum antibiotics. Follow-up cultures (3) Sepsis Qualifiers: Sepsis type: sepsis due to unspecified organism Qualified Code(s): A41.9 - Sepsis, unspecified organism Is this a current diagnosis for this admission?: Yes Plan: Volume resuscitation, broad-spectrum antibiotics. Transferred to ICU for close monitoring. Follow up cultures. (4) Hypotension Qualifiers: Hypotension type: unspecified hypotension type Qualified Code(s): I95.9 - Hypotension, unspecified Is this a current diagnosis for this admission?: Yes Plan: Possibly due to underlying sepsis. Volume resuscitation. Transferred to ICU for further monitoring. Started on norepinephrine. Hold antihypertensive medications. Continue broad-spectrum antibiotics. Follow up cultures. (5) Acute on chronic renal failure Is this a current diagnosis for this admission?: Yes Plan: Most likely prerenal. Electrolytes within normal limits. Monitor vitals. CMP tomorrow (6) BPH (benign prostatic hyperplasia) Qualifiers: Lower urinary tract symptom detail: urinary obstruction Plan: Hold Flomax due to underlying hypotension. Once hypotension resolved we will restart (7) DVT prophylaxis Plan: Started on Lovenox. Continue physical therapy. (8) Decubitus skin ulcer Qualifiers: Qualified Code(s): L89.153 - Pressure ulcer of sacral region, stage 3 Is this a current diagnosis for this admission?: Yes Plan: Follow-up wound cultures continue wound care. (9) Anemia Qualifiers: Anemia type: unspecified type Qualified Code(s): D64.9 - Anemia, unspecified Is this a current diagnosis for this admission?: Yes Plan: Possibly due to underlying CKD. Daily CBC.
--- NOTE | 2018-03-03 16:20 | RADIOLOGY REPORT (SQ) ---
EXAM DESCRIPTION: CT ABD/PELVIS NO ORAL OR IV COMPLETED DATE/TIME: 03/03/2018 4:00 pm REASON FOR STUDY: Abdominal pain/possible pyelonephritis COMPARISON: August 2017 TECHNIQUE: CT scan of the abdomen and pelvis performed without intravenous or oral contrast. Images reviewed with lung, soft tissue, and bone windows. Reconstructed coronal and sagittal MPR images revi ewed. All images stored on PACS. All CT scanners at this facility use dose modulation, iterative reconstruction, and/or weight based d osing when appropriate to reduce radiation dose to as low as reasonably achievable (ALARA). [facility]: Dose Right [facility]: CareDose [facility]: Dose Right [facility]: Teradose 4D [facility]: Smart [employer] RADIATION DOSE: CT Rad equipment meets quality standard of care and radiation dose reduction techniq ues were employed. CTDIvol: 19.3 mGy. DLP: 1073 mGy-cm.mGy. LIMITATIONS: Study is limited due to artifact related to the patient's arms. FINDINGS: LOWER CHEST: Small bilateral pleural effusions are identified with some minimal associated airspace consolidation most consistent with atelectatic changes. NON-CONTRASTED LIVER, SPLEEN, ADRENALS: Evaluation limited by lack of IV contrast. No identified sign ificant masses. Scattered splenic calcifications are again identified. PANCREAS: No masses. No peripancreatic inflammatory changes. GALLBLADDER: No identified stones by CT criteria. No inflammatory changes to suggest cholecystitis. RIGHT KIDNEY AND URETER: No suspicious masses. IV contrast is identified within the pelvocaliceal sy stem related to a recent contrast injection. No significant calcifications. No hydronephrosis or hydroureter. LEFT KIDNEY AND URETER: No suspicious masses. IV contrast is identified within the pyelocaliceal sys tem related to a recent contrast injection. No significant calcifications. No hydronephrosis or h ydroureter. AORTA AND RETROPERITONEUM: No aneurysm. No retroperitoneal masses or adenopathy. BOWEL AND PERITONEAL CAVITY: No obvious masses or inflammatory changes. No free fluid. APPENDIX: Not identified PELVIS, BLADDER, AND ABDOMINAL WALL:No abnormal masses. No free fluid. Bladder catheter is identifie d. BONES: No significant findings. OTHER: No other significant finding. IMPRESSION: NO SIGNIFICANT OR ACUTE PROCESS IN THE ABDOMEN OR PELVIS. COMMENT: Quality ID # [id number]: Final reports with documentation of one or more dose reduction techniques (e.g., Automated exposure control, adjustment of the mA and/or kV according to patient size, use of iterative reconstruction technique) TECHNICAL DOCUMENTATION: JOB ID: [id number] [email or web address]- All Rights Reserved Reading location - IP/workstation name: [email or web address]
[2018-03-03] MEDS: IPRATROPIUM/ALBUTEROL 0.5-2.5 MG/3 ML AMPUL NEB SCH ×2 (16:31→19:26)
[2018-03-03] MEDS ORDERED: ASPIRIN 81 MG TABLET, CHEWABLE PO ONE (17:00)
[2018-03-03] MEDS ORDERED: ATORVASTATIN CALCIUM 40 MG TABLET PO ONE (17:00)
[2018-03-03] MEDS: ACETAMINOPHEN 325 MG TABLET PO PRN (18:22)
[2018-03-03] MEDS: DEXTROSE 5%-WATER 1000 ML 1,000 ML IV PRN (18:24)
[2018-03-03 19:35] LABS: URINE AMPHETAMINES SCREEN NEGATIVE; URINE BARBITURATES SCREEN NEGATIVE; URINE COCAINE SCREEN NEGATIVE; URINE MARIJUANA (THC) SCREEN NEGATIVE; URINE METHADONE SCREEN NEGATIVE; URINE PHENCYCLIDINE SCREEN NEGATIVE
[2018-03-03 19:39] LABS: URINE BENZODIAZEPINES SCREEN UNCONFIRMED POSITIVE
[2018-03-03] MEDS: DEXTROSE 5%-WATER 250 ML with NOREPINEPHRINE BITARTRATE 4 MG IV PRN ×2 (20:01)
[2018-03-03] MEDS: FAMOTIDINE INJ/PF 20 MG/2 ML SDV IV SCH (21:50)
[2018-03-04] MEDS: IPRATROPIUM/ALBUTEROL 0.5-2.5 MG/3 ML AMPUL NEB SCH ×6 (00:35→19:35)
[2018-03-04] MEDS ORDERED: NOREPINEPHRINE BITARTRATE INJ/PF 4 MG/4 ML SDV IV ONE (01:27)
[2018-03-04] MEDS: DEXTROSE 5%-WATER 250 ML with NOREPINEPHRINE BITARTRATE 4 MG IV PRN ×4 (01:40→11:53)
[2018-03-04 04:06] LABS: ABSOLUTE BASOPHILS # (AUTO) 0.1 10^3/uL (0.0-0.2); ABSOLUTE LYMPHOCYTES (AUTO) 1.4 10^3/uL (0.5-4.7); ABSOLUTE NEUT (AUTO) 11.4 10^3/uL (1.7-8.2); BASOPHILS % (AUTO) 0.4 % (0-2); EOSINOPHILS % (AUTO) 0.3 % (0-6); HEMATOCRIT 26.9 % (37.9-51.0); HEMOGLOBIN 8.9 g/dL (13.5-17.0); LYMPHOCYTES % (AUTO) 10.2 % (13-45); MEAN CORPUSCULAR HEMOGLOBIN 28.5 pg (27.0-33.4); MEAN CORPUSCULAR HGB CONC 32.9 g/dL (32.0-36.0); MEAN CORPUSCULAR VOLUME 86 fl (80-97); MONOCYTES % (AUTO) 7.1 % (3-13); PLATELET COUNT 224 10^3/uL (150-450); RED BLOOD COUNT 3.11 10^6/uL (4.35-5.55); RED CELL DISTRIBUTION WIDTH 17.8 % (11.5-14.0); TOTAL CELLS COUNTED % (AUTO) 100 %; WHITE BLOOD COUNT 13.8 10^3/uL (4.0-10.5)
[2018-03-04 04:30] LABS: ALANINE AMINOTRANSFERASE 48 U/L (21-72); ALBUMIN 2.4 g/dL (3.5-5.0); ALKALINE PHOSPHATASE 131 U/L (38-126); ANION GAP 12 (5-19); ASPARTATE AMINO TRANSFERASE 38 U/L (17-59); BILIRUBIN,DIRECT 0.1 mg/dL (0.0-0.4); BILIRUBIN,TOTAL 0.1 mg/dL (0.2-1.3); BLOOD UREA NITROGEN 54 mg/dL (7-20); CALCIUM 8.2 mg/dL (8.4-10.2); CARBON DIOXIDE 19 mmol/L (22-30); CHLORIDE 107 mmol/L (98-107); GLUCOSE 107 mg/dL (75-110); SODIUM 138.4 mmol/L (137-145); TOTAL PROTEIN 5.9 g/dL (6.3-8.2)
[2018-03-04 05:16] LABS: ARTERIAL BLOOD BASE EXCESS -3.8 mmol/L; ARTERIAL BLOOD H2CO3 0.99 mmol/L (1.05-1.35); ARTERIAL BLOOD HCO3 20.2 mmol/L (20-26); ARTERIAL BLOOD PCO2 32.9 mmHg (35-45); ARTERIAL BLOOD PH 7.41 (7.35-7.45); ARTERIAL BLOOD PO2 90.2 mmHg (80-100); ARTERIAL BLOOD TOTAL CO2 21.3 mmol/L (23-27)
[2018-03-04 05:17] LABS: ARTERIAL BLOOD FIO2 2L
[2018-03-04] MEDS: DEXTROSE 5%-WATER 1000 ML 1,000 ML IV PRN ×2 (06:55→17:56)
--- NOTE | 2018-03-04 07:39 | EKG REPORT ---
SEVERITY:- ABNORMAL ECG - ATRIAL FIBRILLATION NONSPECIFIC INTRAVENTRICULAR CONDUCTION DELAY BORDERLINE R WAVE PROGRESSION, ANTERIOR LEADS : Confirmed by: Dalton Templeton MD 04-Mar-2018 07:39:15
[2018-03-04] MEDS: DOCUSATE SODIUM 100 MG CAPSULE PO SCH (09:14)
[2018-03-04] MEDS: FAMOTIDINE INJ/PF 20 MG/2 ML SDV IV SCH ×2 (10:27→21:49)
[2018-03-04] MEDS: ENOXAPARIN SODIUM INJ 40 MG/0.4 ML DISP.SYRIN SUBCUT SCH (10:27)
--- NOTE | 2018-03-04 19:18 | PDOC PROGRESS REPORT ---
Subjective Progress Note for:: 03/04/18 Subjective:: No acute events overnight patient states he is feeling better only complaining of back pain. Patient is more coherent and more cooperative facility physical examination today. Denies any shortness of breath, chest pain, nausea, vomiting, abdominal pain, constipation, diarrhea or any urinary symptoms. Reason For Visit: SEPSIS Physical Exam Vital Signs: Temp Pulse Resp BP Pulse Ox 96.8 F L 78 22 H 100/70 98 03/04/18 17:00 03/04/18 16:55 03/04/18 18:04 03/04/18 18:04 03/04/18 18:04 Intake & Output 03/03/18 03/04/18 03/05/18 06:59 06:59 06:59 Intake Total 2346 1035 Output Total 575 975 Balance 1771 60 Weight 97.6 kg Results Laboratory Results: 03/04/18 03:56 03/04/18 03:56 03/04/18 03/04/18 03/04/18 03:56 03:56 05:05 WBC 13.8 H RBC 3.11 L Hgb 8.9 L Hct 26.9 L MCV 86 MCH 28.5 MCHC 32.9 RDW 17.8 H Plt Count 224 Seg Neutrophils % 82.0 H Lymphocytes % 10.2 L Monocytes % 7.1 Eosinophils % 0.3 Basophils % 0.4 Absolute Neutrophils 11.4 H Absolute Lymphocytes 1.4 Absolute Monocytes 1.0 Absolute Eosinophils 0.0 Absolute Basophils 0.1 Carbonic Acid 0.99 L HCO3/H2CO3 Ratio 20:1 ABG pH 7.41 ABG pCO2 32.9 L ABG pO2 90.2 ABG HCO3 20.2 ABG O2 Saturation 97.0 ABG Base Excess -3.8 FiO2 2L Sodium 138.4 Potassium 4.0 Chloride 107 Carbon Dioxide 19 L Anion Gap 12 BUN 54 H Creatinine 1.62 H Est GFR ( Amer) 49 L Est GFR (Non-Af Amer) 40 L Glucose 107 Calcium 8.2 L Magnesium 2.3 Total Bilirubin 0.1 L AST 38 ALT 48 Alkaline Phosphatase 131 H Total Protein 5.9 L Albumin 2.4 L Impressions: Abdomen/Pelvis CT 03/03/18 00:00 IMPRESSION: NO SIGNIFICANT OR ACUTE PROCESS IN THE ABDOMEN OR PELVIS. Head CT 03/03/18 09:57 IMPRESSION: MILD CHRONIC CHANGES OF ATROPHY AND MICROVASCULAR ISCHEMIA. NO ACUTE PROCESS. EVIDENCE OF ACUTE STROKE: NO. Head CTA 03/03/18 09:57 IMPRESSION: NO CTA EVIDENCE OF STENOSIS OR ANEURYSM OF THE [place]. Neck CTA 03/03/18 09:57 IMPRESSION: NORMAL CTA OF THE EXTRA-CRANIAL CAROTID AND VERTEBRAL ARTERIES. Chest X-Ray 03/03/18 09:58 IMPRESSION: BORDERLINE CARDIOMEGALY. HAZY PULMONARY OPACITIES COULD REPRESENT EARLY PNEUMONIA OR DEVELOPING PULMONARY EDEMA. Assessment & Plan - Diagnosis (1) Altered mental status Qualifiers: Altered mental status type: somnolence Qualified Code(s): R40.0 - Somnolence Is this a current diagnosis for this admission?: Yes Plan: Urine positive for 1 out of 2 gram-negative rods. Pending sensitivity. CT head CTA head and neck no acute abnormalities. Continue norepinephrine titrate wean off once systolic blood pressure is above 12o or MAP is maintained above 70. Mental status is improving. Family not available to get a baseline on mental status. Clement catheter was removed. Follow blood culture urine culture and wound culture. If altered mental status does not not improved please consider an MRI to rule out any stroke. (2) UTI (urinary tract infection) Qualifiers: Urinary tract infection type: catheter-associated UTI Indwelling urinary catheter type: unspecified Encounter type: initial encounter Qualified Code( s): T83.511A - Infection and inflammatory reaction due to indwelling urethral catheter, initial encounter; N39.0 - Urinary tract infection, site not specified ; N39.0 - Urinary tract infection, site not specified Is this a current diagnosis for this admission?: Yes Plan: Urine culture positive for 1 out of 2 gram-negative rods. Clement catheter removed and a new one placed. CT abdomen shows no acute abnormalities. Broad- spectrum antibiotics. Follow-up cultures (3) Sepsis Qualifiers: Sepsis type: sepsis due to unspecified organism Qualified Code(s): A41.9 - Sepsis, unspecified organism Is this a current diagnosis for this admission?: Yes Plan: Possibly due to gram-negative rods in urine. Continue broad-spectrum antibiotics follow-up cultures. Fluid resuscitation guided by volume status. (4) Hypotension Qualifiers: Hypotension type: unspecified hypotension type Qualified Code(s): I95.9 - Hypotension, unspecified Is this a current diagnosis for this admission?: Yes Plan: Possibly due to underlying sepsis. Volume resuscitation. Transferred to ICU for further monitoring. Started on norepinephrine. Hold antihypertensive medications. Continue broad-spectrum antibiotics. Follow up cultures. (5) Acute on chronic renal failure Is this a current diagnosis for this admission?: Yes Plan: Creatinine improving. Most likely prerenal. Electrolytes within normal limits. Monitor vitals. CMP tomorrow (6) BPH (benign prostatic hyperplasia) Qualifiers: Lower urinary tract symptom detail: urinary obstruction Is this a current diagnosis for this admission?: Yes Plan: Hold Flomax due to underlying hypotension. Once hypotension resolved we will restart (7) DVT prophylaxis Is this a current diagnosis for this admission?: No Plan: Started on Lovenox. Continue physical therapy. (8) Decubitus skin ulcer Qualifiers: Qualified Code(s): L89.153 - Pressure ulcer of sacral region, stage 3 Is this a current diagnosis for this admission?: Yes (9) Anemia Qualifiers: Anemia type: unspecified type Qualified Code(s): D64.9 - Anemia, unspecified Is this a current diagnosis for this admission?: Yes Plan: Possibly due to underlying CKD and chronic disease. Patient is DNR. Daily CBC.
[2018-03-04] MEDS: PIPERACILLIN SODIUM/TAZOBACTAM 3.375 GM in NORMAL SALINE 100 ML IV SCH (21:47)
[2018-03-05] MEDS: IPRATROPIUM/ALBUTEROL 0.5-2.5 MG/3 ML AMPUL NEB SCH ×6 (00:18→21:07)
[2018-03-05] MEDS: PIPERACILLIN SODIUM/TAZOBACTAM 3.375 GM in NORMAL SALINE 100 ML IV SCH ×4 (03:30→20:43)
[2018-03-05 05:33] LABS: ARTERIAL BLOOD BASE EXCESS -0.4 mmol/L; ARTERIAL BLOOD H2CO3 1.17 mmol/L (1.05-1.35); ARTERIAL BLOOD HCO3 24.2 mmol/L (20-26); ARTERIAL BLOOD O2 SATURATION 98.2 % (94-98); ARTERIAL BLOOD PCO2 38.9 mmHg (35-45); ARTERIAL BLOOD PH 7.41 (7.35-7.45); ARTERIAL BLOOD PO2 114.2 mmHg (80-100); ARTERIAL BLOOD TOTAL CO2 25.4 mmol/L (23-27)
[2018-03-05 05:39] LABS: ABSOLUTE EOSINOPHILS # (AUTO) 0.1 10^3/uL (0.0-0.6); ABSOLUTE LYMPHOCYTES (AUTO) 1.4 10^3/uL (0.5-4.7); ABSOLUTE MONOCYTES (AUTO) 0.6 10^3/uL (0.1-1.4); ABSOLUTE NEUT (AUTO) 6.1 10^3/uL (1.7-8.2); BASOPHILS % (AUTO) 0.4 % (0-2); EOSINOPHILS % (AUTO) 0.8 % (0-6); HEMATOCRIT 24.7 % (37.9-51.0); HEMOGLOBIN 8.4 g/dL (13.5-17.0); LYMPHOCYTES % (AUTO) 17.2 % (13-45); MEAN CORPUSCULAR HEMOGLOBIN 29.4 pg (27.0-33.4); MEAN CORPUSCULAR HGB CONC 34.2 g/dL (32.0-36.0); MEAN CORPUSCULAR VOLUME 86 fl (80-97); MONOCYTES % (AUTO) 7.1 % (3-13); PLATELET COUNT 165 10^3/uL (150-450); RED BLOOD COUNT 2.87 10^6/uL (4.35-5.55); RED CELL DISTRIBUTION WIDTH 17.8 % (11.5-14.0); SEGMENTED NEUTROPHILS % (AUTO) 74.5 % (42-78); TOTAL CELLS COUNTED % (AUTO) 100 %; WHITE BLOOD COUNT 8.3 10^3/uL (4.0-10.5)
[2018-03-05 05:41] LABS: ARTERIAL BLOOD FIO2 3 FLOW RATE
[2018-03-05 05:53] LABS: ALANINE AMINOTRANSFERASE 50 U/L (21-72); ALBUMIN 2.3 g/dL (3.5-5.0); ALKALINE PHOSPHATASE 159 U/L (38-126); ANION GAP 11 (5-19); ASPARTATE AMINO TRANSFERASE 51 U/L (17-59); BILIRUBIN,DIRECT 0.3 mg/dL (0.0-0.4); BILIRUBIN,TOTAL 0.3 mg/dL (0.2-1.3); BLOOD UREA NITROGEN 41 mg/dL (7-20); CALCIUM 8.3 mg/dL (8.4-10.2); CARBON DIOXIDE 20 mmol/L (22-30); CHLORIDE 112 mmol/L (98-107); GLUCOSE 79 mg/dL (75-110); PHOSPHORUS 4.2 mg/dL (2.5-4.5); POTASSIUM 3.7 mmol/L (3.6-5.0); SODIUM 142.6 mmol/L (137-145); TOTAL PROTEIN 5.8 g/dL (6.3-8.2)
[2018-03-05] MEDS: DEXTROSE 5%-WATER 1000 ML 1,000 ML IV PRN (09:46)
[2018-03-05] MEDS: ENOXAPARIN SODIUM INJ 40 MG/0.4 ML DISP.SYRIN SUBCUT SCH (09:59)
[2018-03-05] MEDS: FAMOTIDINE INJ/PF 20 MG/2 ML SDV IV SCH ×2 (09:59→22:28)
[2018-03-05] MEDS: DOCUSATE SODIUM 100 MG CAPSULE PO SCH (09:59)
[2018-03-05] MEDS ORDERED: NORMAL SALINE 500 ML IV ONE (13:30)
--- NOTE | 2018-03-05 19:19 | PDOC PROGRESS REPORT ---
Subjective Progress Note for:: 03/05/18 Subjective:: Assumed care today. Mr. Obrien is an 87-year-old male who was admitted for septic shock from pyelonephritis. No acute event overnight. Patient is more responsive today. He has been off levophed since 2 AM today. No recurrence of fever or chills. Reason For Visit: SEPSIS Physical Exam Vital Signs: Temp Pulse Resp BP Pulse Ox 98.2 F 99 21 H 96/51 L 98 03/05/18 18:00 03/05/18 18:00 03/05/18 18:00 03/05/18 18:00 03/05/18 18:00 Intake & Output 03/04/18 03/05/18 03/06/18 06:59 06:59 06:59 Intake Total 2346 2335 100 Output Total 575 4445 1500 Balance 1771 -2110 -1400 Weight 215 lb 2.738 oz 212 lb 15.465 oz General appearance: PRESENT: no acute distress, well-developed, well-nourished Head exam: PRESENT: atraumatic, normocephalic Eye exam: PRESENT: conjunctiva pink, EOMI, PERRLA. ABSENT: scleral icterus Respiratory exam: PRESENT: clear to auscultation arash. ABSENT: rales, rhonchi, wheezes Cardiovascular exam: PRESENT: RRR. ABSENT: diastolic murmur, rubs, systolic murmur Pulses: PRESENT: normal dorsalis pedis pul Rectal exam: PRESENT: deferred Neurological exam: PRESENT: alert, awake, oriented to person, oriented to place Results Laboratory Results: 03/05/18 04:57 03/05/18 04:57 03/05/18 03/05/18 03/05/18 04:57 04:57 05:17 WBC 8.3 RBC 2.87 L Hgb 8.4 L Hct 24.7 L MCV 86 MCH 29.4 MCHC 34.2 RDW 17.8 H Plt Count 165 Seg Neutrophils % 74.5 Lymphocytes % 17.2 Monocytes % 7.1 Eosinophils % 0.8 Basophils % 0.4 Absolute Neutrophils 6.1 Absolute Lymphocytes 1.4 Absolute Monocytes 0.6 Absolute Eosinophils 0.1 Absolute Basophils 0.0 Carbonic Acid 1.17 HCO3/H2CO3 Ratio 20:1 ABG pH 7.41 ABG pCO2 38.9 ABG pO2 114.2 H ABG HCO3 24.2 ABG O2 Saturation 98.2 H ABG Base Excess -0.4 FiO2 3 FLOW RATE Sodium 142.6 Potassium 3.7 Chloride 112 H Carbon Dioxide 20 L Anion Gap 11 BUN 41 H Creatinine 1.58 H Est GFR ( Amer) 50 L Est GFR (Non-Af Amer) 42 L Glucose 79 Calcium 8.3 L Phosphorus 4.2 Magnesium 2.4 H Total Bilirubin 0.3 AST 51 ALT 50 Alkaline Phosphatase 159 H Total Protein 5.8 L Albumin 2.3 L Impressions: Abdomen/Pelvis CT 03/03/18 00:00 IMPRESSION: NO SIGNIFICANT OR ACUTE PROCESS IN THE ABDOMEN OR PELVIS. Head CT 03/03/18 09:57 IMPRESSION: MILD CHRONIC CHANGES OF ATROPHY AND MICROVASCULAR ISCHEMIA. NO ACUTE PROCESS. EVIDENCE OF ACUTE STROKE: NO. Head CTA 03/03/18 09:57 IMPRESSION: NO CTA EVIDENCE OF STENOSIS OR ANEURYSM OF THE [place]. Neck CTA 03/03/18 09:57 IMPRESSION: NORMAL CTA OF THE EXTRA-CRANIAL CAROTID AND VERTEBRAL ARTERIES. Chest X-Ray 03/03/18 09:58 IMPRESSION: BORDERLINE CARDIOMEGALY. HAZY PULMONARY OPACITIES COULD REPRESENT EARLY PNEUMONIA OR DEVELOPING PULMONARY EDEMA. Assessment & Plan - Diagnosis (1) Septic shock Is this a current diagnosis for this admission?: Yes Plan: Off levophed since 2 am. Switch fluids to D5NS at 125 cc/h. Continue Zosyn for now. Initial urine culture grew Pseudomonas. Will await for final culture reports. (2) Sacral decubitus ulcer, stage IV Is this a current diagnosis for this admission?: Yes Plan: Continue daily wound dressing. (3) Acute on chronic renal failure Is this a current diagnosis for this admission?: Yes Plan: Patient's creatinine on admission was 1.72. Creatinine today has improved to 1.58. EMERALD is likely secondary to septic ATN. Repeat BMP tomorrow morning. (4) Altered mental status Qualifiers: Altered mental status type: somnolence Qualified Code(s): R40.0 - Somnolence Is this a current diagnosis for this admission?: Yes Plan: Resolved. Encephalopathy with likely related to patient's septic shock. - Time Time Spent with patient: 25-34 minutes
[2018-03-06] MEDS: IPRATROPIUM/ALBUTEROL 0.5-2.5 MG/3 ML AMPUL NEB SCH ×6 (00:24→20:59)
[2018-03-06] MEDS: DEXTROSE 5%-NORMAL SALINE 1,000 ML IV PRN ×2 (01:12→10:55)
[2018-03-06] MEDS: PIPERACILLIN SODIUM/TAZOBACTAM 3.375 GM in NORMAL SALINE 100 ML IV SCH ×4 (03:06→21:53)
[2018-03-06 04:23] LABS: ABSOLUTE EOSINOPHILS # (AUTO) 0.1 10^3/uL (0.0-0.6); ABSOLUTE MONOCYTES (AUTO) 0.7 10^3/uL (0.1-1.4); HEMATOCRIT 23.2 % (37.9-51.0); TOTAL CELLS COUNTED % (AUTO) 100 %
[2018-03-06 04:28] LABS: ABSOLUTE BASOPHILS # (AUTO) 0.1 10^3/uL (0.0-0.2); ABSOLUTE LYMPHOCYTES (AUTO) 1.7 10^3/uL (0.5-4.7); ABSOLUTE NEUT (AUTO) 6.8 10^3/uL (1.7-8.2); BASOPHILS % (AUTO) 0.8 % (0-2); EOSINOPHILS % (AUTO) 0.9 % (0-6); LYMPHOCYTES % (AUTO) 17.9 % (13-45); MEAN CORPUSCULAR HEMOGLOBIN 29.6 pg (27.0-33.4); MEAN CORPUSCULAR HGB CONC 34.6 g/dL (32.0-36.0); MEAN CORPUSCULAR VOLUME 86 fl (80-97); MONOCYTES % (AUTO) 7.5 % (3-13); PLATELET COUNT 153 10^3/uL (150-450); RED BLOOD COUNT 2.71 10^6/uL (4.35-5.55); RED CELL DISTRIBUTION WIDTH 17.8 % (11.5-14.0); SEGMENTED NEUTROPHILS % (AUTO) 72.9 % (42-78); WHITE BLOOD COUNT 9.3 10^3/uL (4.0-10.5)
[2018-03-06 04:40] LABS: ALANINE AMINOTRANSFERASE 58 U/L (21-72); ALBUMIN 2.3 g/dL (3.5-5.0); ALKALINE PHOSPHATASE 161 U/L (38-126); ANION GAP 9 (5-19); ASPARTATE AMINO TRANSFERASE 62 U/L (17-59); BILIRUBIN,DIRECT 0.3 mg/dL (0.0-0.4); BILIRUBIN,TOTAL 0.3 mg/dL (0.2-1.3); BLOOD UREA NITROGEN 29 mg/dL (7-20); CALCIUM 8.3 mg/dL (8.4-10.2); CARBON DIOXIDE 23 mmol/L (22-30); CHLORIDE 116 mmol/L (98-107); GLUCOSE 74 mg/dL (75-110); PHOSPHORUS 3.5 mg/dL (2.5-4.5); POTASSIUM 3.3 mmol/L (3.6-5.0); SODIUM 147.8 mmol/L (137-145); TOTAL PROTEIN 5.6 g/dL (6.3-8.2)
[2018-03-06] MEDS: FAMOTIDINE INJ/PF 20 MG/2 ML SDV IV SCH ×2 (10:55→21:53)
[2018-03-06] MEDS: DOCUSATE SODIUM 100 MG CAPSULE PO SCH (10:55)
[2018-03-06] MEDS: ENOXAPARIN SODIUM INJ 40 MG/0.4 ML DISP.SYRIN SUBCUT SCH (10:55)
--- NOTE | 2018-03-06 14:10 | RADIOLOGY REPORT (SQ) ---
EXAM DESCRIPTION: CT HEAD WITHOUT COMPLETED DATE/TIME: 03/06/2018 1:59 pm REASON FOR STUDY: AMS,unequal pupils COMPARISON: None. TECHNIQUE: Axial images acquired through the brain without intravenous contrast. Images reviewed wi th bone, brain and subdural windows. Additional sagittal and coronal reconstructions were generated. Images stored on PACS. All CT scanners at this facility use dose modulation, iterative reconstruction, and/or weight based d osing when appropriate to reduce radiation dose to as low as reasonably achievable (ALARA). [facility]: Dose Right [facility]: CareDose [facility]: Dose Right [facility]: Teradose 4D [facility]: [employer] RADIATION DOSE: CT Rad equipment meets quality standard of care and radiation dose reduction techniq ues were employed. CTDIvol: 48.6 mGy. DLP: 954 mGy-cm. mGy. LIMITATIONS: None. FINDINGS: VENTRICLES: Prominent ventricles secondary to involutional atrophy. CEREBRUM: Cortical atrophy. No masses. No hemorrhage. No midline shift. No evidence for acute in farction. Areas of low density in the white matter most likely chronic small vessel ischemic changes. CEREBELLUM: No masses. No hemorrhage. No alteration of density. No evidence for acute infarction. EXTRAAXIAL SPACES: No fluid collections. No masses. ORBITS AND GLOBE: No intra- or extraconal masses. Normal contour of globe without masses. CALVARIUM: No fracture. PARANASAL SINUSES: No fluid or mucosal thickening. SOFT TISSUES: No mass or hematoma. OTHER: No other significant finding. IMPRESSION: Involutional changes of aging with microvascular ischemia. No acute imaging findings in the brain. EVIDENCE OF ACUTE STROKE: NO. COMMENT: Quality ID # [id number]: Final reports with documentation of one or more dose reduction techniques (e.g., Automated exposure control, adjustment of the mA and/or kV according to patient size, use of iterative reconstruction technique) TECHNICAL DOCUMENTATION: JOB ID: [id number] [employer]- All Rights Reserved Reading location - IP/workstation name: [email or web address]
[2018-03-06] MEDS: POTASSI CL 20 MEQ/50 ML RIDER 20 MEQ/50 ML RTUPB IV SCH ×2 (14:52→17:09)
--- NOTE | 2018-03-06 16:58 | RADIOLOGY REPORT (SQ) ---
EXAM DESCRIPTION: MRI HEAD WITHOUT COMPLETED DATE/TIME: 03/06/2018 4:41 pm REASON FOR STUDY: AMS, acute spastic left arm, unequal pupils COMPARISON: 03/06/2018 CT brain. This exam qualifies as a separate session for this patient's imaging care and occurred 4 hours after the previous session of cross-sectional imaging care. TECHNIQUE: Multiplanar imaging includes non-contrasted T1, T2, FLAIR, and diffusion with ADC map seq uences. Images stored on PACS. LIMITATIONS: None. FINDINGS: ANATOMY: No anomalies. Normal vascular flow voids. Pituitary fossa normal. CSF SPACES: Normal in size and contour. No hemorrhage. CEREBRUM: Fairly focal signal in the inferior right basal ganglia suggests previous lacunar infarct. No hemorrhage or mass or shift. Minimal small vessel disease otherwise suggested. POSTERIOR FOSSA: No signal alteration. No hemorrhage. No edema, masses or mass effect. Internal shraddha tory canals, cerebello-pontine angles, mastoids normal. DIFFUSION IMAGING: Negative for acute or sub-acute infarction. ORBITS: No masses. Globes normal. PARANASAL SINUSES: No fluid levels. Mucosa normal. OTHER: No other significant finding. IMPRESSION: 1. No acute intracranial abnormality. Suspect chronic changes including very mild small vessel disease and old right basal ganglia lacunar infarct. No suggestion of recent CVA. EVIDENCE OF ACUTE STROKE: NO. TECHNICAL DOCUMENTATION: JOB ID: [id number] [employer]- All Rights Reserved Reading location - IP/workstation name: [email or web address]
[2018-03-06 17:51] LABS: HEMATOCRIT 24.7 % (37.9-51.0); HEMOGLOBIN 8.1 g/dL (13.5-17.0); MEAN CORPUSCULAR HEMOGLOBIN 28.7 pg (27.0-33.4); MEAN CORPUSCULAR HGB CONC 32.9 g/dL (32.0-36.0); MEAN CORPUSCULAR VOLUME 87 fl (80-97); PLATELET COUNT 171 10^3/uL (150-450); RED BLOOD COUNT 2.83 10^6/uL (4.35-5.55); RED CELL DISTRIBUTION WIDTH 17.5 % (11.5-14.0); WHITE BLOOD COUNT 8.7 10^3/uL (4.0-10.5)
[2018-03-06] MEDS ORDERED: VANCOMYCIN HCL 0 MG in DEXTROSE 5%-WATER 250 ML IV NR (18:15)
--- NOTE | 2018-03-06 20:11 | PDOC PROGRESS REPORT ---
Subjective Progress Note for:: 03/06/18 Subjective:: Assumed care today. Mr. Obrien is an 87-year-old male who was admitted for septic shock from pyelonephritis. No acute event overnight. Patient's blood pressure has been stable and has not required pressors for 24 hours. No recurrence of fever or chills. Later this morning, patient was noted to have staring spells and he had a questionable spasticity of the left arm hence imaging of the brain was pursued to rule out CVA. Patient was also more confused compared to yesterday. Patient is also noted to have hematuria today. He does have some bleeding around the site of the Clement cath. Reason For Visit: SEPSIS Physical Exam Vital Signs: Temp Pulse Resp BP Pulse Ox 97.4 F 83 15 125/62 99 03/06/18 19:47 03/06/18 17:07 03/06/18 18:01 03/06/18 18:01 03/06/18 18:01 Intake & Output 03/05/18 03/06/18 03/07/18 06:59 06:59 06:59 Intake Total 2335 400 1250 Output Total 4445 3075 1790 Balance -5520 -2675 -540 Weight 212 lb 15.465 oz 213 lb 13.574 oz General appearance: PRESENT: other - Patient Starting on ceiling. Does respond when prompted in conversation. Patient is more confused compared to yesterday. Head exam: PRESENT: atraumatic, normocephalic Eye exam: PRESENT: conjunctiva pink, EOMI, PERRLA. ABSENT: scleral icterus Ear exam: PRESENT: normal external ear exam Neck exam: ABSENT: carotid bruit, JVD, lymphadenopathy, thyromegaly Respiratory exam: PRESENT: clear to auscultation arash. ABSENT: rales, rhonchi, wheezes Cardiovascular exam: PRESENT: RRR. ABSENT: diastolic murmur, rubs, systolic murmur GI/Abdominal exam: PRESENT: normal bowel sounds, soft. ABSENT: distended, guarding, mass, organolmegaly, rebound, tenderness Rectal exam: PRESENT: deferred Neurological exam: PRESENT: altered, other - He appears to have a my spastic left arm today but it does not seem to be weak compared to the right arm. Results Laboratory Results: 03/06/18 17:00 03/06/18 03:59 03/06/18 03/06/18 03/06/18 03:59 03:59 17:00 WBC 9.3 8.7 RBC 2.71 L 2.83 L Hgb 8.0 L 8.1 L Hct 23.2 L 24.7 L MCV 86 87 MCH 29.6 28.7 MCHC 34.6 32.9 RDW 17.8 H 17.5 H Plt Count 153 171 Seg Neutrophils % 72.9 Lymphocytes % 17.9 Monocytes % 7.5 Eosinophils % 0.9 Basophils % 0.8 Absolute Neutrophils 6.8 Absolute Lymphocytes 1.7 Absolute Monocytes 0.7 Absolute Eosinophils 0.1 Absolute Basophils 0.1 Sodium 147.8 H Potassium 3.3 L Chloride 116 H Carbon Dioxide 23 Anion Gap 9 BUN 29 H Creatinine 1.46 H Est GFR ( Amer) 55 L Est GFR (Non-Af Amer) 46 L Glucose 74 L Calcium 8.3 L Phosphorus 3.5 Magnesium 2.2 Total Bilirubin 0.3 AST 62 H ALT 58 Alkaline Phosphatase 161 H Total Protein 5.6 L Albumin 2.3 L Impressions: Abdomen/Pelvis CT 03/03/18 00:00 IMPRESSION: NO SIGNIFICANT OR ACUTE PROCESS IN THE ABDOMEN OR PELVIS. Head CTA 03/03/18 09:57 IMPRESSION: NO CTA EVIDENCE OF STENOSIS OR ANEURYSM OF THE [place]. Neck CTA 03/03/18 09:57 IMPRESSION: NORMAL CTA OF THE EXTRA-CRANIAL CAROTID AND VERTEBRAL ARTERIES. Chest X-Ray 03/03/18 09:58 IMPRESSION: BORDERLINE CARDIOMEGALY. HAZY PULMONARY OPACITIES COULD REPRESENT EARLY PNEUMONIA OR DEVELOPING PULMONARY EDEMA. Head CT 03/06/18 00:00 IMPRESSION: Involutional changes of aging with microvascular ischemia. No acute imaging findings in the brain. EVIDENCE OF ACUTE STROKE: NO. Head MRI 03/06/18 00:00 IMPRESSION: 1. No acute intracranial abnormality. Suspect chronic changes including very mild small vessel disease and old right basal ganglia lacunar infarct. No suggestion of recent CVA. EVIDENCE OF ACUTE STROKE: NO. Assessment & Plan - Diagnosis (1) Septic shock Is this a current diagnosis for this admission?: Yes Plan: Result. Urine culture grew Pseudomonas. Sacral decubitus ulcer culture also was positive for MRSA. Continue Zosyn and vancomycin for now. (2) Acute on chronic renal failure Is this a current diagnosis for this admission?: Yes Plan: Patient's creatinine on admission was 1.72. Creatinine today has improved to 1.4. EMERALD is likely secondary to septic ATN. Repeat BMP tomorrow morning. (3) Altered mental status Qualifiers: Altered mental status type: somnolence Qualified Code(s): R40.0 - Somnolence Is this a current diagnosis for this admission?: Yes Plan: Patient was more coherent yesterday. Brain imaging was pursued to rule out acute CVA because of his altered mental status and apparent spasticity of the left arm. MRI of the brain is negative for acute CVA. Patient's altered mental status is likely ICU related delirium. We will continue to monitor and IN to continue reorienting patient to time and place. (4) Sacral decubitus ulcer Is this a current diagnosis for this admission?: Yes Plan: Sacral decubitus ulcer stage II. Culture grew MRSA. Continue vancomycin for now. Continue daily wound dressing. (5) Hematuria Is this a current diagnosis for this admission?: Yes Plan: Hold off on Lovenox for today due to hematuria. Keep Clement catheter and minimize manipulation. No urology plumbing contractor today. Will consult urology tomorrow. We will continue to monitor hematuria and H&H.
[2018-03-06] MEDS: VANCOMYCIN HCL 1,250 MG in DEXTROSE 5%-WATER 250 ML IV SCH (21:53)
[2018-03-07] MEDS: IPRATROPIUM/ALBUTEROL 0.5-2.5 MG/3 ML AMPUL NEB SCH ×6 (00:23→20:24)
[2018-03-07] MEDS: PIPERACILLIN SODIUM/TAZOBACTAM 3.375 GM in NORMAL SALINE 100 ML IV SCH ×4 (03:55→21:10)
[2018-03-07 04:27] LABS: ABSOLUTE EOSINOPHILS # (AUTO) 0.1 10^3/uL (0.0-0.6); ABSOLUTE LYMPHOCYTES (AUTO) 1.5 10^3/uL (0.5-4.7); ABSOLUTE MONOCYTES (AUTO) 0.6 10^3/uL (0.1-1.4); ABSOLUTE NEUT (AUTO) 7.5 10^3/uL (1.7-8.2); BASOPHILS % (AUTO) 0.4 % (0-2); EOSINOPHILS % (AUTO) 1.2 % (0-6); HEMATOCRIT 24.4 % (37.9-51.0); LYMPHOCYTES % (AUTO) 15.7 % (13-45); MEAN CORPUSCULAR HEMOGLOBIN 28.2 pg (27.0-33.4); MEAN CORPUSCULAR HGB CONC 32.6 g/dL (32.0-36.0); MEAN CORPUSCULAR VOLUME 87 fl (80-97); MONOCYTES % (AUTO) 6.4 % (3-13); PLATELET COUNT 183 10^3/uL (150-450); RED BLOOD COUNT 2.82 10^6/uL (4.35-5.55); RED CELL DISTRIBUTION WIDTH 17.9 % (11.5-14.0); SEGMENTED NEUTROPHILS % (AUTO) 76.3 % (42-78); TOTAL CELLS COUNTED % (AUTO) 100 %; WHITE BLOOD COUNT 9.8 10^3/uL (4.0-10.5)
[2018-03-07 04:41] LABS: ALANINE AMINOTRANSFERASE 54 U/L (21-72); ALBUMIN 2.6 g/dL (3.5-5.0); ALKALINE PHOSPHATASE 157 U/L (38-126); ANION GAP 12 (5-19); ASPARTATE AMINO TRANSFERASE 63 U/L (17-59); BILIRUBIN,DIRECT 0.3 mg/dL (0.0-0.4); BILIRUBIN,TOTAL 0.4 mg/dL (0.2-1.3); BLOOD UREA NITROGEN 21 mg/dL (7-20); CALCIUM 8.2 mg/dL (8.4-10.2); CARBON DIOXIDE 22 mmol/L (22-30); CHLORIDE 119 mmol/L (98-107); GLUCOSE 116 mg/dL (75-110); POTASSIUM 3.5 mmol/L (3.6-5.0); SODIUM 152.5 mmol/L (137-145); TOTAL PROTEIN 6.4 g/dL (6.3-8.2)
[2018-03-07] MEDS: DEXTROSE 5%-WATER 1000 ML 1,000 ML IV PRN (09:13)
[2018-03-07] MEDS: ENOXAPARIN SODIUM INJ 40 MG/0.4 ML DISP.SYRIN SUBCUT SCH (09:15)
[2018-03-07] MEDS: FAMOTIDINE INJ/PF 20 MG/2 ML SDV IV SCH ×2 (09:27→21:10)
[2018-03-07] MEDS ORDERED: POTASSIUM CHLORIDE 20 MEQ/50 ML RTU IV ONE (09:30)
[2018-03-07] MEDS: DOCUSATE SODIUM 100 MG CAPSULE PO SCH (09:32)
--- NOTE | 2018-03-07 13:52 | RADIOLOGY REPORT (SQ) ---
EXAM DESCRIPTION: U/S RETROPERITON (RENAL/AORTA) COMPLETED DATE/TIME: 03/07/2018 1:36 pm REASON FOR STUDY: Hematuria, rule out kidney stone COMPARISON: CT abdomen and pelvis dated 03/03/2018. TECHNIQUE: Dynamic and static grayscale images acquired of the kidneys and bladder and recorded on P ACS. Additional selected color Doppler and spectral images recorded. LIMITATIONS: None. FINDINGS: RIGHT KIDNEY: Normal size. Normal echogenicity. No solid or suspicious masses. No hydronep hrosis. No calcifications. LEFT KIDNEY: Normal size. Normal echogenicity. No solid or suspicious masses. No hydronephrosis. No calcifications. BLADDER: There is irregular bladder wall thickening. The Yepez catheter has a questionable configura tion. The balloon is within the bladder lumen. The distal portion of the catheter beyond the balloo n extends superiorly and indents the bladder wall. On some images, the tip may be penetrating the bl adder wall. OTHER FINDINGS: No other significant finding. IMPRESSION: 1. NORMAL RENAL ULTRASOUND. 2. YEPEZ CATHETER DESCRIBED. THE TIP OF THE CATHETER INDENTS THE BLADDER WALL AND ON SOME IMAGES THERE IS SUGGESTION THAT THE TIP MAY PENETRATE THE BLADDER WALL. THE CATHETER MAY NEED TO BE REPOSIT IONED OR REPLACED. IF THERE IS SUSPICION THAT THE TIP HAS PENETRATED THE BLADDER WALL, THEN MAY CONS IDER A CYSTOGRAM TO DETERMINE IF THERE IS ANY INDICATION OF LEAKAGE FROM THE BLADDER. TECHNICAL DOCUMENTATION: JOB ID: [id number] [employer]- All Rights Reserved Reading location - IP/workstation name: [email or web address]
--- NOTE | 2018-03-07 15:27 | RADIOLOGY REPORT (SQ) ---
EXAM DESCRIPTION: INJECT VCU/CYSTOGRAM; CYSTOGRAM MINIMUM 3 VIEW COMPLETED DATE/TIME: 03/07/2018 3:08 pm REASON FOR STUDY: HEMATURIA; hematuria COMPARISON: Bilateral renal ultrasound 03/07/2018 CT abdomen pelvis 03/03/2018 FLUOROSCOPY TIME: 1 minutes 29 seconds 12 digital fluoroscopic Images saved to PACS LIMITATIONS: None. PROCEDURE: The patient's pre-existing Clement catheter was filled in retrograde fashion with 300 mL of Cystografin contrast. Multiple fluoroscopic spot images were obtained. FINDINGS: The Clement catheter balloon and catheter tip are in the bladder. There is no extravasation of contrast from the urinary bladder. During filling, there is left-sided grade 2 vesicoureteral reflux. Bladder assumes Wreo tree shape with thickened folds and scattered small diverticuli, likely a n eurogenic bladder. IMPRESSION: Left-sided vesicoureteral reflux. Bladder configuration suggests chronic urinary outflo w obstruction versus neurogenic bladder. Clement catheter balloon and tip are in good positioning in the urinary bladder COMMENT: PQRS 6045F: Fluoroscopy time of the procedure is documented in the report. TECHNICAL DOCUMENTATION: JOB ID: [id number] [employer] All Rights Reserved Reading location - IP/workstation name: [facility]
--- NOTE | 2018-03-07 15:27 | RADIOLOGY REPORT (SQ) ---
EXAM DESCRIPTION: INJECT VCU/CYSTOGRAM; CYSTOGRAM MINIMUM 3 VIEW COMPLETED DATE/TIME: 03/07/2018 3:08 pm REASON FOR STUDY: HEMATURIA; hematuria COMPARISON: Bilateral renal ultrasound 03/07/2018 CT abdomen pelvis 03/03/2018 FLUOROSCOPY TIME: 1 minutes 29 seconds 12 digital fluoroscopic Images saved to PACS LIMITATIONS: None. PROCEDURE: The patient's pre-existing Clement catheter was filled in retrograde fashion with 300 mL of Cystografin contrast. Multiple fluoroscopic spot images were obtained. FINDINGS: The Clement catheter balloon and catheter tip are in the bladder. There is no extravasation of contrast from the urinary bladder. During filling, there is left-sided grade 2 vesicoureteral reflux. Bladder assumes [place] tree shape with thickened folds and scattered small diverticuli, likely a n eurogenic bladder. IMPRESSION: Left-sided vesicoureteral reflux. Bladder configuration suggests chronic urinary outflo w obstruction versus neurogenic bladder. Clement catheter balloon and tip are in good positioning in the urinary bladder COMMENT: PQRS 6045F: Fluoroscopy time of the procedure is documented in the report. TECHNICAL DOCUMENTATION: JOB ID: [id number] [employer]- All Rights Reserved Reading location - IP/workstation name: [email or web address]-[email or web address]
--- NOTE | 2018-03-07 17:45 | PDOC PROGRESS REPORT ---
Subjective Progress Note for:: 03/07/18 Subjective:: Assumed care today. Mr. Obrien is an 87-year-old male who was admitted for septic shock from pyelonephritis. No acute event overnight. Patient's blood pressures have been stable. No recurrence of fever or chills. Patient was more responsive today. He was coherent and was able to appropriately say his name and know where he is. He was able to follow commands well. He does have alternating episodes of confusion and improved mental status and this is more consistent with ICU related delirium. He continued to have hematuria early this morning despite holding anticoagulants. Reason For Visit: SEPSIS Physical Exam Vital Signs: Temp Pulse Resp BP Pulse Ox 97.6 F 78 20 132/68 H 99 03/07/18 15:41 03/07/18 16:09 03/07/18 16:09 03/07/18 15:41 03/07/18 16:11 Intake & Output 03/06/18 03/07/18 03/08/18 06:59 06:59 06:59 Intake Total 400 1450 100 Output Total 3075 2450 725 Balance -2675 -1000 -625 Weight 213 lb 13.574 oz 214 lb 1.102 oz General appearance: PRESENT: no acute distress, well-developed, well-nourished Head exam: PRESENT: atraumatic, normocephalic Eye exam: PRESENT: conjunctiva pink, EOMI, PERRLA. ABSENT: scleral icterus Mouth exam: PRESENT: moist, tongue midline Respiratory exam: PRESENT: clear to auscultation arash. ABSENT: rales, rhonchi, wheezes Cardiovascular exam: PRESENT: RRR. ABSENT: diastolic murmur, rubs, systolic murmur GI/Abdominal exam: PRESENT: normal bowel sounds, soft. ABSENT: distended, guarding, mass, organolmegaly, rebound, tenderness Musculoskeletal exam: PRESENT: other - Grade 2 sacral decubitus ulcer Neurological exam: PRESENT: alert, awake, oriented to person, oriented to place Results Laboratory Results: 03/07/18 04:00 03/07/18 04:00 03/06/18 03/07/18 03/07/18 17:00 04:00 04:00 WBC 8.7 9.8 RBC 2.83 L 2.82 L Hgb 8.1 L 8.0 L Hct 24.7 L 24.4 L MCV 87 87 MCH 28.7 28.2 MCHC 32.9 32.6 RDW 17.5 H 17.9 H Plt Count 171 183 Seg Neutrophils % 76.3 Lymphocytes % 15.7 Monocytes % 6.4 Eosinophils % 1.2 Basophils % 0.4 Absolute Neutrophils 7.5 Absolute Lymphocytes 1.5 Absolute Monocytes 0.6 Absolute Eosinophils 0.1 Absolute Basophils 0.0 Sodium 152.5 H Potassium 3.5 L Chloride 119 H Carbon Dioxide 22 Anion Gap 12 BUN 21 H Creatinine 1.40 H Est GFR ( Amer) 58 L Est GFR (Non-Af Amer) 48 L Glucose 116 H Calcium 8.2 L Magnesium 2.1 Total Bilirubin 0.4 AST 63 H ALT 54 Alkaline Phosphatase 157 H Total Protein 6.4 Albumin 2.6 L Impressions: Abdomen/Pelvis CT 03/03/18 00:00 IMPRESSION: NO SIGNIFICANT OR ACUTE PROCESS IN THE ABDOMEN OR PELVIS. Head CTA 03/03/18 09:57 IMPRESSION: NO CTA EVIDENCE OF STENOSIS OR ANEURYSM OF THE [place]. Neck CTA 03/03/18 09:57 IMPRESSION: NORMAL CTA OF THE EXTRA-CRANIAL CAROTID AND VERTEBRAL ARTERIES. Chest X-Ray 03/03/18 09:58 IMPRESSION: BORDERLINE CARDIOMEGALY. HAZY PULMONARY OPACITIES COULD REPRESENT EARLY PNEUMONIA OR DEVELOPING PULMONARY EDEMA. Head CT 03/06/18 00:00 IMPRESSION: Involutional changes of aging with microvascular ischemia. No acute imaging findings in the brain. EVIDENCE OF ACUTE STROKE: NO. Head MRI 03/06/18 00:00 IMPRESSION: 1. No acute intracranial abnormality. Suspect chronic changes including very mild small vessel disease and old right basal ganglia lacunar infarct. No suggestion of recent CVA. EVIDENCE OF ACUTE STROKE: NO. Cystogram 03/07/18 00:00 IMPRESSION: Left-sided vesicoureteral reflux. Bladder configuration suggests chronic urinary outflow obstruction versus neurogenic bladder. Yepez catheter balloon and tip are in good positioning in the urinary bladder Renal Ultrasound 03/07/18 00:00 IMPRESSION: 1. NORMAL RENAL ULTRASOUND. 2. YEPEZ CATHETER DESCRIBED. THE TIP OF THE CATHETER INDENTS THE BLADDER WALL AND ON SOME IMAGES THERE IS SUGGESTION THAT THE TIP MAY PENETRATE THE BLADDER WALL. THE CATHETER MAY NEED TO BE REPOSITIONED OR REPLACED. IF THERE IS SUSPICION THAT THE TIP HAS PENETRATED THE BLADDER WALL, THEN MAY CONSIDER A CYSTOGRAM TO DETERMINE IF THERE IS ANY INDICATION OF LEAKAGE FROM THE BLADDER. Assessment & Plan - Diagnosis (1) Septic shock Is this a current diagnosis for this admission?: Yes Plan: Result. Urine culture grew Pseudomonas. Sacral decubitus ulcer culture also was positive for MRSA. Continue Zosyn and vancomycin for now. (2) Acute on chronic renal failure Is this a current diagnosis for this admission?: Yes Plan: Patient's creatinine on admission was 1.72. Renal functions continued to improve. Creatinine today has improved to 1.40. EMERALD is likely secondary to septic ATN. Repeat BMP tomorrow morning. (3) Altered mental status Qualifiers: Altered mental status type: somnolence Qualified Code(s): R40.0 - Somnolence Is this a current diagnosis for this admission?: Yes Plan: Patient's mentation significantly improved today. His alternating levels of mentation is secondary to ICU related delirium. (4) Sacral decubitus ulcer Is this a current diagnosis for this admission?: Yes Plan: Sacral decubitus ulcer stage II. Culture grew MRSA. Continue vancomycin for now. Continue daily wound dressing. (5) Hematuria Is this a current diagnosis for this admission?: Yes Plan: Renal ultrasound showed tip of the catheter was indenting the bladder wall. A cystogram was pursued to rule out bladder wall perforation. No urology religious education coordinator today. Cystogram was negative for perforation. Catheter was adjusted and withdrawn a few centimeters. We will continue to monitor for persistence of hematuria. Will continue to monitor H&H. - Time Time Spent with patient: 25-34 minutes
[2018-03-07] MEDS: VANCOMYCIN HCL 1,250 MG in DEXTROSE 5%-WATER 250 ML IV SCH (21:10)
[2018-03-08] MEDS: IPRATROPIUM/ALBUTEROL 0.5-2.5 MG/3 ML AMPUL NEB SCH ×3 (00:28→08:28)
[2018-03-08 04:38] LABS: ABSOLUTE EOSINOPHILS # (AUTO) 0.2 10^3/uL (0.0-0.6); ABSOLUTE LYMPHOCYTES (AUTO) 1.6 10^3/uL (0.5-4.7); ABSOLUTE MONOCYTES (AUTO) 0.6 10^3/uL (0.1-1.4); BASOPHILS % (AUTO) 0.4 % (0-2); EOSINOPHILS % (AUTO) 2.9 % (0-6); HEMATOCRIT 24.1 % (37.9-51.0); LYMPHOCYTES % (AUTO) 19.1 % (13-45); MEAN CORPUSCULAR HEMOGLOBIN 28.7 pg (27.0-33.4); MEAN CORPUSCULAR HGB CONC 33.1 g/dL (32.0-36.0); MEAN CORPUSCULAR VOLUME 87 fl (80-97); MONOCYTES % (AUTO) 7.4 % (3-13); PLATELET COUNT 152 10^3/uL (150-450); RED BLOOD COUNT 2.77 10^6/uL (4.35-5.55); RED CELL DISTRIBUTION WIDTH 17.3 % (11.5-14.0); SEGMENTED NEUTROPHILS % (AUTO) 70.2 % (42-78); TOTAL CELLS COUNTED % (AUTO) 100 %; WHITE BLOOD COUNT 8.5 10^3/uL (4.0-10.5)
[2018-03-08 04:49] LABS: ANION GAP 12 (5-19); BLOOD UREA NITROGEN 15 mg/dL (7-20); CALCIUM 7.4 mg/dL (8.4-10.2); CARBON DIOXIDE 19 mmol/L (22-30); CHLORIDE 114 mmol/L (98-107); GLUCOSE 117 mg/dL (75-110); POTASSIUM 3.4 mmol/L (3.6-5.0); SODIUM 145.4 mmol/L (137-145)
[2018-03-08] MEDS: PIPERACILLIN SODIUM/TAZOBACTAM 3.375 GM in NORMAL SALINE 100 ML IV SCH ×3 (06:16→18:26)
[2018-03-08] MEDS ORDERED: IPRATROPIUM/ALBUTEROL 0.5-2.5 MG/3 ML AMPUL NEB PRN (11:30)
[2018-03-08] MEDS: FAMOTIDINE INJ/PF 20 MG/2 ML SDV IV SCH ×2 (11:37→22:15)
[2018-03-08] MEDS: DOCUSATE SODIUM 100 MG CAPSULE PO SCH (11:37)
[2018-03-08] MEDS: LACTOBACILLUS ACIDOPHILUS 250 MG TAB PO SCH ×2 (11:38→21:25)
--- NOTE | 2018-03-08 17:26 | Progress Note ---
Provider Note Provider Note: ID Consult Note Asked by Pharmacy to review chart and provide input regarding vancomycin. Pt not seen or examined. Per notes, Mr. Jackson is an 87 year old man with PMH including HTN< HLD, CKD, obstructive uropathy with moctezuma, sacral decubitus ulcer and prior CVA who is bed[facility]. He was sent to hospital on 03/03/18 for weakness and confusion starting the day prior to admission. The patient was found to be hypotensive with SBP in the 70s-80s, hypothermic, and somnolent although arousable. His exam was notable for large sacral ulcer, indwelling moctezuma catheter, clear lungs, normoactive bowel sound, soft abdomen, lack of meningismus, and limited neurologic exam due to cooperativity. Pt was suspected of having encephalopathy and hypotension due to sepsis from a urinary source. Pending culture results empirically vancomycin and Zosyn were started. Sacral ulcer was also swabbed and sent for culture. Urine culture from 03/03 grew Pseudomonas aeruginosa >100k cfu/mL (resistant to fluoroquinolones, sensitive to aminoglycosides, Zosyn, cefepime, meropenem) and 50-60k cfu Proteus mirabilis (resistant to fluoroquinolones, tetracycline and Bactrim). The swab of the sacral ulcer grew 3+ Proteus mirabilis, 2+ Klebsiella pneumoniae and 3+ MRSA. Whether continued vancomycin is appropriate depends upon whether the sacral decubitus ulcer appears to be infected clinically (- are typical signs of soft tissue infection present, such as purulent discharge, malodor, and local warmth , induration, and erythema?) If the sacral wound is clean and uninfected appearing, vancomycin should be discontinued. Culture result has to be interpreted in clinical context. Growth from superficial swab can easily represent colonization of a wound if clinically no infection is appreciated. Loki Red MD [facility]
[2018-03-08] MEDS ORDERED: SENNOSIDES 8.6 MG PO SCH (18:00)
[2018-03-08] MEDS: SENNOSIDES/DOCUSATE 8.6-50 MG 1 EACH TABLET PO SCH (18:25)
[2018-03-08] MEDS: DEXTROSE 5%-WATER 1000 ML 1,000 ML IV PRN (18:27)
--- NOTE | 2018-03-08 19:02 | PDOC PROGRESS REPORT ---
Subjective Progress Note for:: 03/08/18 Subjective:: Assumed care today. Mr. Obrien is an 87-year-old male who was admitted for septic shock from pyelonephritis. No acute event overnight. Patient's blood pressures have been stable. No recurrence of fever or chills. Patient was more responsive today. He was coherent and was able to appropriately say his name and know where he is. No recurrence of hematuria. Patient's urine has been clear today. Reason For Visit: SEPSIS Physical Exam Vital Signs: Temp Pulse Resp BP Pulse Ox 97 F L 58 L 14 114/67 99 03/08/18 03:42 03/08/18 16:42 03/08/18 16:42 03/08/18 14:34 03/08/18 16:42 Intake & Output 03/07/18 03/08/18 03/09/18 06:59 06:59 06:59 Intake Total 0976 686 2926 Output Total 2450 1525 400 Balance -750 -975 1250 Weight 214 lb 1.102 oz 222 lb 3.615 oz General appearance: PRESENT: no acute distress, well-developed, well-nourished Head exam: PRESENT: atraumatic, normocephalic Eye exam: PRESENT: conjunctiva pink, EOMI, PERRLA. ABSENT: scleral icterus Ear exam: PRESENT: normal external ear exam Neck exam: ABSENT: carotid bruit, JVD, lymphadenopathy, thyromegaly Respiratory exam: PRESENT: clear to auscultation arash. ABSENT: rales, rhonchi, wheezes Cardiovascular exam: PRESENT: RRR Pulses: PRESENT: normal dorsalis pedis pul GI/Abdominal exam: PRESENT: normal bowel sounds, soft. ABSENT: distended, guarding, mass, organolmegaly, rebound, tenderness Rectal exam: PRESENT: deferred Musculoskeletal exam: PRESENT: other - sacral ulcer does have moderate light yellowish drainage Neurological exam: PRESENT: alert, awake, oriented to person Results Laboratory Results: 03/08/18 03:58 03/08/18 03:58 03/08/18 03/08/18 03:58 03:58 WBC 8.5 RBC 2.77 L Hgb 8.0 L Hct 24.1 L MCV 87 MCH 28.7 MCHC 33.1 RDW 17.3 H Plt Count 152 Seg Neutrophils % 70.2 Lymphocytes % 19.1 Monocytes % 7.4 Eosinophils % 2.9 Basophils % 0.4 Absolute Neutrophils 6.0 Absolute Lymphocytes 1.6 Absolute Monocytes 0.6 Absolute Eosinophils 0.2 Absolute Basophils 0.0 Sodium 145.4 H Potassium 3.4 L Chloride 114 H Carbon Dioxide 19 L Anion Gap 12 BUN 15 Creatinine 1.09 Est GFR ( Amer) > 60 Est GFR (Non-Af Amer) > 60 Glucose 117 H Calcium 7.4 L Magnesium 1.8 Impressions: Abdomen/Pelvis CT 03/03/18 00:00 IMPRESSION: NO SIGNIFICANT OR ACUTE PROCESS IN THE ABDOMEN OR PELVIS. Head CTA 03/03/18 09:57 IMPRESSION: NO CTA EVIDENCE OF STENOSIS OR ANEURYSM OF THE [place] OF [place]. Neck CTA 03/03/18 09:57 IMPRESSION: NORMAL CTA OF THE EXTRA-CRANIAL CAROTID AND VERTEBRAL ARTERIES. Chest X-Ray 03/03/18 09:58 IMPRESSION: BORDERLINE CARDIOMEGALY. HAZY PULMONARY OPACITIES COULD REPRESENT EARLY PNEUMONIA OR DEVELOPING PULMONARY EDEMA. Head CT 03/06/18 00:00 IMPRESSION: Involutional changes of aging with microvascular ischemia. No acute imaging findings in the brain. EVIDENCE OF ACUTE STROKE: NO. Head MRI 03/06/18 00:00 IMPRESSION: 1. No acute intracranial abnormality. Suspect chronic changes including very mild small vessel disease and old right basal ganglia lacunar infarct. No suggestion of recent CVA. EVIDENCE OF ACUTE STROKE: NO. Cystogram 03/07/18 00:00 IMPRESSION: Left-sided vesicoureteral reflux. Bladder configuration suggests chronic urinary outflow obstruction versus neurogenic bladder. Yepez catheter balloon and tip are in good positioning in the urinary bladder Renal Ultrasound 03/07/18 00:00 IMPRESSION: 1. NORMAL RENAL ULTRASOUND. 2. YEPEZ CATHETER DESCRIBED. THE TIP OF THE CATHETER INDENTS THE BLADDER WALL AND ON SOME IMAGES THERE IS SUGGESTION THAT THE TIP MAY PENETRATE THE BLADDER WALL. THE CATHETER MAY NEED TO BE REPOSITIONED OR REPLACED. IF THERE IS SUSPICION THAT THE TIP HAS PENETRATED THE BLADDER WALL, THEN MAY CONSIDER A CYSTOGRAM TO DETERMINE IF THERE IS ANY INDICATION OF LEAKAGE FROM THE BLADDER. Assessment & Plan - Diagnosis (1) Septic shock Is this a current diagnosis for this admission?: Yes Plan: Resolved septic shock secondary to pyelonephritis. Urine culture grew Pseudomonas. Noted sensitivity. Sacral decubitus ulcer culture also was positive for MRSA. Continue Zosyn and vancomycin for now as sacral ulcer does have moderate light yellowish drainage. Will await recommendations from ID regarding de-escalation of Zosyn. (2) Acute on chronic renal failure Is this a current diagnosis for this admission?: Yes Plan: Resolved. EMERALD is likely secondary to septic ATN. Repeat BMP tomorrow morning. (3) Altered mental status Qualifiers: Altered mental status type: somnolence Qualified Code(s): R40.0 - Somnolence Is this a current diagnosis for this admission?: Yes Plan: Improved. Altered mental status is likely secondary to ICU related delirium. (4) Sacral decubitus ulcer Is this a current diagnosis for this admission?: Yes Plan: Sacral decubitus ulcer stage II. Culture grew MRSA. Continue vancomycin for now as sacral ulcer does have moderate light yellowish drainage. Continue daily wound dressing. (5) Hematuria Is this a current diagnosis for this admission?: Yes Plan: Resolved.
[2018-03-08] MEDS: ATORVASTATIN CALCIUM 40 MG TABLET PO SCH (21:25)
[2018-03-08] MEDS: MELATONIN 3 MG TABLET PO SCH (21:25)
[2018-03-08] MEDS: VANCOMYCIN HCL 1,250 MG in DEXTROSE 5%-WATER 250 ML IV SCH (22:15)
[2018-03-09] MEDS: PIPERACILLIN SODIUM/TAZOBACTAM 3.375 GM in NORMAL SALINE 100 ML IV SCH ×4 (01:00→17:17)
[2018-03-09] MEDS: DEXTROSE 5%-WATER 1000 ML 1,000 ML IV PRN ×2 (05:38→17:19)
[2018-03-09] MEDS ORDERED: DOCUSATE CALCIUM 240 MG PO SCH (08:00)
[2018-03-09] MEDS: LISINOPRIL 10 MG TABLET PO SCH (09:36)
[2018-03-09] MEDS: LACTOBACILLUS ACIDOPHILUS 250 MG TAB PO SCH ×2 (09:36→22:05)
[2018-03-09] MEDS: FAMOTIDINE INJ/PF 20 MG/2 ML SDV IV SCH ×2 (09:36→22:06)
[2018-03-09] MEDS: FUROSEMIDE 20 MG TABLET PO SCH (09:36)
[2018-03-09] MEDS: POLYETHYLENE GLYCOL 3350 POWDER 17 GM/1 PACKET PO SCH (09:37)
[2018-03-09] MEDS: DOCUSATE SODIUM 100 MG CAPSULE PO SCH ×2 (09:37)
--- NOTE | 2018-03-09 15:20 | PDOC PROGRESS REPORT ---
Subjective Progress Note for:: 03/09/18 Subjective:: Mr. Obrien is an 87-year-old male who was admitted for septic shock from pyelonephritis. No acute event overnight. Patient's blood pressures have been stable. He is back to his baseline mentation. He is well responsive and coherent this morning. No recurrence of hematuria. His urine has cleared and no there has been no recurrence of hematuria in the past 2 days. Reason For Visit: SEPSIS Physical Exam Vital Signs: Temp Pulse Resp BP Pulse Ox 97.2 F 72 23 H 110/72 92 03/09/18 12:00 03/09/18 07:29 03/09/18 14:00 03/09/18 11:51 03/09/18 14:00 Intake & Output 03/08/18 03/09/18 03/10/18 06:59 06:59 06:59 Intake Total 550 3280 240 Output Total 1525 2125 700 Balance -975 1155 -460 Weight 222 lb 3.615 oz 210 lb 15.718 oz General appearance: PRESENT: no acute distress, well-developed, well-nourished Head exam: PRESENT: atraumatic, normocephalic Eye exam: PRESENT: conjunctiva pink, EOMI, PERRLA. ABSENT: scleral icterus Ear exam: PRESENT: normal external ear exam Mouth exam: PRESENT: moist, tongue midline Neck exam: ABSENT: carotid bruit, JVD, lymphadenopathy, thyromegaly Respiratory exam: PRESENT: clear to auscultation arash. ABSENT: rales, rhonchi, wheezes Cardiovascular exam: PRESENT: RRR. ABSENT: diastolic murmur, rubs, systolic murmur Pulses: PRESENT: normal dorsalis pedis pul GI/Abdominal exam: PRESENT: normal bowel sounds, soft. ABSENT: distended, guarding, mass, organolmegaly, rebound, tenderness Rectal exam: PRESENT: deferred Neurological exam: PRESENT: alert, awake, oriented to person, oriented to place Results Laboratory Results: 03/08/18 03:58 03/08/18 03:58 Impressions: Abdomen/Pelvis CT 03/03/18 00:00 IMPRESSION: NO SIGNIFICANT OR ACUTE PROCESS IN THE ABDOMEN OR PELVIS. Head CTA 03/03/18 09:57 IMPRESSION: NO CTA EVIDENCE OF STENOSIS OR ANEURYSM OF THE [place]. Neck CTA 03/03/18 09:57 IMPRESSION: NORMAL CTA OF THE EXTRA-CRANIAL CAROTID AND VERTEBRAL ARTERIES. Chest X-Ray 03/03/18 09:58 IMPRESSION: BORDERLINE CARDIOMEGALY. HAZY PULMONARY OPACITIES COULD REPRESENT EARLY PNEUMONIA OR DEVELOPING PULMONARY EDEMA. Head CT 03/06/18 00:00 IMPRESSION: Involutional changes of aging with microvascular ischemia. No acute imaging findings in the brain. EVIDENCE OF ACUTE STROKE: NO. Head MRI 03/06/18 00:00 IMPRESSION: 1. No acute intracranial abnormality. Suspect chronic changes including very mild small vessel disease and old right basal ganglia lacunar infarct. No suggestion of recent CVA. EVIDENCE OF ACUTE STROKE: NO. Cystogram 03/07/18 00:00 IMPRESSION: Left-sided vesicoureteral reflux. Bladder configuration suggests chronic urinary outflow obstruction versus neurogenic bladder. Yepez catheter balloon and tip are in good positioning in the urinary bladder Renal Ultrasound 03/07/18 00:00 IMPRESSION: 1. NORMAL RENAL ULTRASOUND. 2. YEPEZ CATHETER DESCRIBED. THE TIP OF THE CATHETER INDENTS THE BLADDER WALL AND ON SOME IMAGES THERE IS SUGGESTION THAT THE TIP MAY PENETRATE THE BLADDER WALL. THE CATHETER MAY NEED TO BE REPOSITIONED OR REPLACED. IF THERE IS SUSPICION THAT THE TIP HAS PENETRATED THE BLADDER WALL, THEN MAY CONSIDER A CYSTOGRAM TO DETERMINE IF THERE IS ANY INDICATION OF LEAKAGE FROM THE BLADDER. Assessment & Plan - Diagnosis (1) Septic shock Is this a current diagnosis for this admission?: Yes Plan: Resolved septic shock secondary to pyelonephritis. Urine culture grew Pseudomonas. Noted sensitivity. Sacral decubitus ulcer culture also was positive for MRSA. Continue Zosyn. Will await recommendations from ID regarding de-escalation of Zosyn. (2) Acute on chronic renal failure Is this a current diagnosis for this admission?: Yes Plan: Resolved. EMERALD is likely secondary to septic ATN. (3) Altered mental status Qualifiers: Altered mental status type: somnolence Qualified Code(s): R40.0 - Somnolence Is this a current diagnosis for this admission?: Yes Plan: Resolved. Altered mental status was likely secondary to ICU related delirium. (4) Sacral decubitus ulcer Is this a current diagnosis for this admission?: Yes Plan: Sacral decubitus ulcer stage II. Culture grew MRSA. Reevaluated sacral wound today, there is only scanty light yellowish material which appears to be coming from the granulation tissue. There is no active drainage and the wound does not appear to be acutely infected. Will discontinue vancomycin. Continue daily wound dressing. (5) Hematuria Is this a current diagnosis for this admission?: Yes Plan: Resolved. No recurrence in the past 2 days. - Time Time Spent with patient: 15-24 minutes
[2018-03-09] MEDS: SENNOSIDES/DOCUSATE 8.6-50 MG 1 EACH TABLET PO SCH (17:17)
[2018-03-09] MEDS: VANCOMYCIN HCL 1,250 MG in DEXTROSE 5%-WATER 250 ML IV SCH (21:54)
[2018-03-09] MEDS: ATORVASTATIN CALCIUM 40 MG TABLET PO SCH (22:06)
[2018-03-09] MEDS: MELATONIN 3 MG TABLET PO SCH (22:07)
[2018-03-10] MEDS: PIPERACILLIN SODIUM/TAZOBACTAM 3.375 GM in NORMAL SALINE 100 ML IV SCH ×5 (00:44→23:47)
[2018-03-10] MEDS: DEXTROSE 5%-WATER 1000 ML 1,000 ML IV PRN ×2 (04:24→18:32)
[2018-03-10] MEDS: DOCUSATE SODIUM 100 MG CAPSULE PO SCH ×2 (07:33→09:16)
[2018-03-10] MEDS: POLYETHYLENE GLYCOL 3350 POWDER 17 GM/1 PACKET PO SCH (07:34)
[2018-03-10] MEDS: LISINOPRIL 10 MG TABLET PO SCH (08:02)
[2018-03-10] MEDS: FUROSEMIDE 20 MG TABLET PO SCH (08:02)
[2018-03-10] MEDS: LACTOBACILLUS ACIDOPHILUS 250 MG TAB PO SCH ×2 (09:16→21:00)
[2018-03-10] MEDS: FAMOTIDINE INJ/PF 20 MG/2 ML SDV IV SCH ×2 (09:16→21:00)
--- NOTE | 2018-03-10 14:04 | PDOC PROGRESS REPORT ---
Subjective Progress Note for:: 03/10/18 Subjective:: Mr. Obrien is an 87-year-old male who was admitted for septic shock from pyelonephritis. No acute event overnight. Patient's blood pressures have been stable. He is back to his baseline mentation. He is well responsive and coherent this morning. No recurrence of hematuria. His urine has cleared and no there has been no recurrence of hematuria in the past 3 days. Patient is stable for discharge. Apparently, patient can't go back to [facility] as he will be discharged to a different facility in [place]. Reason For Visit: SEPSIS Physical Exam Vital Signs: Temp Pulse Resp BP Pulse Ox 96.4 F L 68 23 H 115/46 L 99 03/10/18 07:40 03/10/18 12:00 03/10/18 12:00 03/10/18 12:00 03/10/18 12:00 Intake & Output 03/09/18 03/10/18 03/11/18 06:59 06:59 06:59 Intake Total 3280 2640 Output Total 2125 2500 800 Balance 1155 140 -800 Weight 210 lb 15.718 oz 215 lb 6.266 oz General appearance: PRESENT: no acute distress, well-developed, well-nourished Head exam: PRESENT: atraumatic, normocephalic Eye exam: PRESENT: conjunctiva pink, EOMI, PERRLA. ABSENT: scleral icterus Ear exam: PRESENT: normal external ear exam Mouth exam: PRESENT: moist, tongue midline Neck exam: ABSENT: carotid bruit, JVD, lymphadenopathy, thyromegaly Respiratory exam: PRESENT: clear to auscultation arash. ABSENT: rales, rhonchi, wheezes Pulses: PRESENT: normal dorsalis pedis pul GI/Abdominal exam: PRESENT: normal bowel sounds, soft. ABSENT: distended, guarding, mass, organolmegaly, rebound, tenderness Rectal exam: PRESENT: deferred Musculoskeletal exam: PRESENT: other - grade 2 decubitus ulcer Neurological exam: PRESENT: alert, awake, oriented to person, oriented to place , oriented to situation Psychiatric exam: PRESENT: appropriate affect Results Laboratory Results: 03/08/18 03:58 03/08/18 03:58 Impressions: Abdomen/Pelvis CT 03/03/18 00:00 IMPRESSION: NO SIGNIFICANT OR ACUTE PROCESS IN THE ABDOMEN OR PELVIS. Head CTA 03/03/18 09:57 IMPRESSION: NO CTA EVIDENCE OF STENOSIS OR ANEURYSM OF THE [place]. Neck CTA 03/03/18 09:57 IMPRESSION: NORMAL CTA OF THE EXTRA-CRANIAL CAROTID AND VERTEBRAL ARTERIES. Chest X-Ray 03/03/18 09:58 IMPRESSION: BORDERLINE CARDIOMEGALY. HAZY PULMONARY OPACITIES COULD REPRESENT EARLY PNEUMONIA OR DEVELOPING PULMONARY EDEMA. Head CT 03/06/18 00:00 IMPRESSION: Involutional changes of aging with microvascular ischemia. No acute imaging findings in the brain. EVIDENCE OF ACUTE STROKE: NO. Head MRI 03/06/18 00:00 IMPRESSION: 1. No acute intracranial abnormality. Suspect chronic changes including very mild small vessel disease and old right basal ganglia lacunar infarct. No suggestion of recent CVA. EVIDENCE OF ACUTE STROKE: NO. Cystogram 03/07/18 00:00 IMPRESSION: Left-sided vesicoureteral reflux. Bladder configuration suggests chronic urinary outflow obstruction versus neurogenic bladder. Yepez catheter balloon and tip are in good positioning in the urinary bladder Renal Ultrasound 03/07/18 00:00 IMPRESSION: 1. NORMAL RENAL ULTRASOUND. 2. YEPEZ CATHETER DESCRIBED. THE TIP OF THE CATHETER INDENTS THE BLADDER WALL AND ON SOME IMAGES THERE IS SUGGESTION THAT THE TIP MAY PENETRATE THE BLADDER WALL. THE CATHETER MAY NEED TO BE REPOSITIONED OR REPLACED. IF THERE IS SUSPICION THAT THE TIP HAS PENETRATED THE BLADDER WALL, THEN MAY CONSIDER A CYSTOGRAM TO DETERMINE IF THERE IS ANY INDICATION OF LEAKAGE FROM THE BLADDER. Assessment & Plan - Diagnosis (1) Septic shock Is this a current diagnosis for this admission?: Yes Plan: Resolved septic shock secondary to pyelonephritis. Urine culture grew Pseudomonas. He has chronic indwelling catheter from a possible neurogenic bladder which has been changed on admission. Noted sensitivity. Sacral decubitus ulcer culture also was positive for MRSA. Continue Zosyn. Will await recommendations from ID regarding de-escalation of Zosyn. (2) Acute on chronic renal failure Is this a current diagnosis for this admission?: Yes Plan: Resolved. EMERALD was likely secondary to septic ATN. (3) Altered mental status Qualifiers: Altered mental status type: somnolence Qualified Code(s): R40.0 - Somnolence Is this a current diagnosis for this admission?: Yes Plan: Resolved. Altered mental status was likely secondary to ICU related delirium. (4) Sacral decubitus ulcer Is this a current diagnosis for this admission?: Yes Plan: Sacral decubitus ulcer stage II. Culture grew MRSA. Reevaluated sacral wound, there was only scanty light yellowish material which appears to be coming from the granulation tissue. There is no active drainage and the wound does not appear to be acutely infected. Vancomycin has been discontinued. Continue daily wound dressing. (5) Hematuria Is this a current diagnosis for this admission?: Yes Plan: Resolved. No recurrence in the past 3 days. Will resume prophylactic dose of heparin. - Time Time Spent with patient: 15-24 minutes
[2018-03-10 15:50] LABS: ALANINE AMINOTRANSFERASE 37 U/L (21-72); ALBUMIN 2.2 g/dL (3.5-5.0); ALKALINE PHOSPHATASE 124 U/L (38-126); ANION GAP 8 (5-19); ASPARTATE AMINO TRANSFERASE 21 U/L (17-59); BILIRUBIN,DIRECT 0.2 mg/dL (0.0-0.4); BILIRUBIN,TOTAL 0.2 mg/dL (0.2-1.3); BLOOD UREA NITROGEN 12 mg/dL (7-20); CALCIUM 8.1 mg/dL (8.4-10.2); CARBON DIOXIDE 25 mmol/L (22-30); CHLORIDE 109 mmol/L (98-107); GLUCOSE 97 mg/dL (75-110); POTASSIUM 3.2 mmol/L (3.6-5.0); TOTAL PROTEIN 5.6 g/dL (6.3-8.2)
[2018-03-10] MEDS: SENNOSIDES/DOCUSATE 8.6-50 MG 1 EACH TABLET PO SCH (18:09)
[2018-03-10] MEDS: ATORVASTATIN CALCIUM 40 MG TABLET PO SCH (21:00)
[2018-03-10] MEDS: MELATONIN 3 MG TABLET PO SCH (21:00)
[2018-03-10] MEDS: HEPARIN SOD (PORCINE) 5,000 UNIT/ML 1 ML SYRINGE SUBCUT SCH (21:03)
[2018-03-11] MEDS: PIPERACILLIN SODIUM/TAZOBACTAM 3.375 GM in NORMAL SALINE 100 ML IV SCH ×3 (05:23→17:43)
[2018-03-11] MEDS: DEXTROSE 5%-WATER 1000 ML 1,000 ML IV PRN ×2 (06:05→17:43)
[2018-03-11 07:02] LABS: ANION GAP 10 (5-19); BLOOD UREA NITROGEN 11 mg/dL (7-20); CALCIUM 8.6 mg/dL (8.4-10.2); CARBON DIOXIDE 23 mmol/L (22-30); CHLORIDE 112 mmol/L (98-107); GLUCOSE 96 mg/dL (75-110); POTASSIUM 3.1 mmol/L (3.6-5.0); SODIUM 144.6 mmol/L (137-145)
[2018-03-11] MEDS: DOCUSATE SODIUM 100 MG CAPSULE PO SCH (07:27)
[2018-03-11] MEDS: POLYETHYLENE GLYCOL 3350 POWDER 17 GM/1 PACKET PO SCH (07:28)
[2018-03-11] MEDS: LISINOPRIL 10 MG TABLET PO SCH (07:42)
[2018-03-11] MEDS: FUROSEMIDE 20 MG TABLET PO SCH (07:44)
[2018-03-11] MEDS: LACTOBACILLUS ACIDOPHILUS 250 MG TAB PO SCH ×2 (09:01→22:22)
[2018-03-11] MEDS: HEPARIN SOD (PORCINE) 5,000 UNIT/ML 1 ML SYRINGE SUBCUT SCH ×2 (09:01→22:23)
[2018-03-11] MEDS: FAMOTIDINE INJ/PF 20 MG/2 ML SDV IV SCH ×2 (09:01→22:22)
[2018-03-11] MEDS ORDERED: POTASSIUM CHLORIDE 10 MEQ CAPSULE.ER PO ONE (10:00)
[2018-03-11] MEDS: POTASSIUM CHLORIDE 20 MEQ/50 ML RTU IV SCH ×2 (10:14→12:30)
--- NOTE | 2018-03-11 15:42 | PDOC PROGRESS REPORT ---
Subjective Progress Note for:: 03/11/18 Subjective:: Mr. Obrien is an 87-year-old male who was admitted for septic shock from pyelonephritis (catheter-associated). No acute event overnight. Patient's blood pressures have been stable. He is at his baseline mentation. He is well responsive and coherent this morning. No recurrence of hematuria. His urine has cleared and there has been no recurrence of hematuria in the past 4 days. Patient is stable for discharge. Apparently, patient can't go back to [facility] as he will be discharged to a different facility in [place]. Reason For Visit: SEPSIS Physical Exam Vital Signs: Temp Pulse Resp BP Pulse Ox 98.2 F 79 26 H 135/59 H 91 L 03/11/18 12:00 03/11/18 12:00 03/11/18 15:00 03/11/18 13:44 03/11/18 15:00 Intake & Output 03/10/18 03/11/18 03/12/18 06:59 06:59 06:59 Intake Total 2640 2400 942 Output Total 2500 3100 1125 Balance 140 -700 -183 Weight 215 lb 6.266 oz 213 lb 2.992 oz General appearance: PRESENT: no acute distress, well-developed, well-nourished Head exam: PRESENT: atraumatic, normocephalic Eye exam: PRESENT: conjunctiva pink, EOMI, PERRLA. ABSENT: scleral icterus Ear exam: PRESENT: normal external ear exam Neck exam: ABSENT: carotid bruit, JVD, lymphadenopathy, thyromegaly Respiratory exam: PRESENT: clear to auscultation arash. ABSENT: rales, rhonchi, wheezes Cardiovascular exam: PRESENT: RRR. ABSENT: diastolic murmur, rubs, systolic murmur Pulses: PRESENT: normal dorsalis pedis pul GI/Abdominal exam: PRESENT: normal bowel sounds, soft. ABSENT: distended, guarding, mass, organolmegaly, rebound, tenderness Rectal exam: PRESENT: deferred Musculoskeletal exam: PRESENT: other - grade 2 sacral decubitus ulcer Neurological exam: PRESENT: alert, awake, oriented to person, oriented to place Results Laboratory Results: 03/08/18 03:58 03/11/18 06:18 03/10/18 03/11/18 14:48 06:18 Sodium 142.0 144.6 Potassium 3.2 L 3.1 L Chloride 109 H 112 H Carbon Dioxide 25 23 Anion Gap 8 10 BUN 12 11 Creatinine 1.09 1.17 Est GFR ( Amer) > 60 > 60 Est GFR (Non-Af Amer) > 60 59 L Glucose 97 96 Calcium 8.1 L 8.6 Magnesium 1.6 Total Bilirubin 0.2 AST 21 ALT 37 Alkaline Phosphatase 124 Total Protein 5.6 L Albumin 2.2 L Impressions: Abdomen/Pelvis CT 03/03/18 00:00 IMPRESSION: NO SIGNIFICANT OR ACUTE PROCESS IN THE ABDOMEN OR PELVIS. Head CTA 03/03/18 09:57 IMPRESSION: NO CTA EVIDENCE OF STENOSIS OR ANEURYSM OF THE [place]. Neck CTA 03/03/18 09:57 IMPRESSION: NORMAL CTA OF THE EXTRA-CRANIAL CAROTID AND VERTEBRAL ARTERIES. Chest X-Ray 03/03/18 09:58 IMPRESSION: BORDERLINE CARDIOMEGALY. HAZY PULMONARY OPACITIES COULD REPRESENT EARLY PNEUMONIA OR DEVELOPING PULMONARY EDEMA. Head CT 03/06/18 00:00 IMPRESSION: Involutional changes of aging with microvascular ischemia. No acute imaging findings in the brain. EVIDENCE OF ACUTE STROKE: NO. Head MRI 03/06/18 00:00 IMPRESSION: 1. No acute intracranial abnormality. Suspect chronic changes including very mild small vessel disease and old right basal ganglia lacunar infarct. No suggestion of recent CVA. EVIDENCE OF ACUTE STROKE: NO. Cystogram 03/07/18 00:00 IMPRESSION: Left-sided vesicoureteral reflux. Bladder configuration suggests chronic urinary outflow obstruction versus neurogenic bladder. Yepez catheter balloon and tip are in good positioning in the urinary bladder Renal Ultrasound 03/07/18 00:00 IMPRESSION: 1. NORMAL RENAL ULTRASOUND. 2. YEPEZ CATHETER DESCRIBED. THE TIP OF THE CATHETER INDENTS THE BLADDER WALL AND ON SOME IMAGES THERE IS SUGGESTION THAT THE TIP MAY PENETRATE THE BLADDER WALL. THE CATHETER MAY NEED TO BE REPOSITIONED OR REPLACED. IF THERE IS SUSPICION THAT THE TIP HAS PENETRATED THE BLADDER WALL, THEN MAY CONSIDER A CYSTOGRAM TO DETERMINE IF THERE IS ANY INDICATION OF LEAKAGE FROM THE BLADDER. Assessment & Plan - Diagnosis (1) Septic shock Is this a current diagnosis for this admission?: Yes Plan: Resolved septic shock secondary to pyelonephritis. Urine culture grew Pseudomonas. He has chronic indwelling catheter from a possible neurogenic bladder which has been changed on admission. Noted sensitivity. Sacral decubitus ulcer culture also was positive for MRSA but does not appear to be acutely infected hence vancomycin was d/clive. Today will be patient's day 7 on Zosyn. Seven days is the minimum duration for CAUTI. Patient had good clinical response in the first 3 days of therapy. Will disconitnue Zosyn tomorrow unless otheriwse recommended by ID. Will await final recommendations from ID regarding de-escalation of Zosyn. (2) Acute on chronic renal failure Is this a current diagnosis for this admission?: Yes Plan: Resolved. EMERALD was likely secondary to septic ATN. (3) Altered mental status Qualifiers: Altered mental status type: somnolence Qualified Code(s): R40.0 - Somnolence Is this a current diagnosis for this admission?: Yes Plan: Resolved. Altered mental status was likely secondary to ICU related delirium. (4) Sacral decubitus ulcer Is this a current diagnosis for this admission?: Yes Plan: Sacral decubitus ulcer stage II. Culture grew MRSA. There was only scanty light yellowish material which appears to be coming from the granulation tissue. There is no active drainage and the wound does not appear to be acutely infected. Vancomycin has since been discontinued. Continue daily wound dressing. (5) Hematuria Is this a current diagnosis for this admission?: Yes Plan: Resolved. No recurrence in the past 3 days. Initial US showed questionable penetration of catheter tip against bladder wall. A cystogram was pursued which did not show perforation or injury to the bladder wall. - Time Time Spent with patient: 15-24 minutes
[2018-03-11] MEDS: SENNOSIDES/DOCUSATE 8.6-50 MG 1 EACH TABLET PO SCH (17:20)
[2018-03-11 17:51] LABS: ANION GAP 10 (5-19); BLOOD UREA NITROGEN 11 mg/dL (7-20); CALCIUM 8.3 mg/dL (8.4-10.2); CARBON DIOXIDE 27 mmol/L (22-30); CHLORIDE 108 mmol/L (98-107); GLUCOSE 101 mg/dL (75-110); POTASSIUM 3.6 mmol/L (3.6-5.0); SODIUM 144.6 mmol/L (137-145)
[2018-03-11] MEDS: ATORVASTATIN CALCIUM 40 MG TABLET PO SCH (22:22)
[2018-03-11] MEDS: MELATONIN 3 MG TABLET PO SCH (22:22)
[2018-03-12] MEDS: PIPERACILLIN SODIUM/TAZOBACTAM 3.375 GM in NORMAL SALINE 100 ML IV SCH ×4 (00:36→17:20)
[2018-03-12] MEDS: POLYETHYLENE GLYCOL 3350 POWDER 17 GM/1 PACKET PO SCH (07:56)
[2018-03-12] MEDS: DOCUSATE SODIUM 100 MG CAPSULE PO SCH (07:56)
[2018-03-12] MEDS: DEXTROSE 5%-WATER 1000 ML 1,000 ML IV PRN ×2 (08:08→22:10)
[2018-03-12] MEDS: LISINOPRIL 10 MG TABLET PO SCH (08:09)
[2018-03-12] MEDS: FUROSEMIDE 20 MG TABLET PO SCH (08:19)
[2018-03-12] MEDS: FAMOTIDINE INJ/PF 20 MG/2 ML SDV IV SCH ×2 (09:26→22:16)
[2018-03-12] MEDS: LACTOBACILLUS ACIDOPHILUS 250 MG TAB PO SCH ×2 (09:26→22:15)
[2018-03-12] MEDS: HEPARIN SOD (PORCINE) 5,000 UNIT/ML 1 ML SYRINGE SUBCUT SCH ×2 (09:26→22:16)
--- NOTE | 2018-03-12 14:19 | PDOC PROGRESS REPORT ---
Subjective Progress Note for:: 03/12/18 Subjective:: 87-year-old male past medical history of chronic decubitus ulcer, obstructive uropathy presented to ED and septic shock due to catheter associated UTI. Patient has chronic indwelling catheter due to obstructive uropathy which was replaced on admission. No acute events overnight patient has a mild leg hypotensive and is anti- hypertensive medication was held by the nurse. On my evaluation patient is sleepy but arousable denies any pain, shortness of breath chest pain, abdominal pain, fever, or any urinary symptoms Reason For Visit: SEPSIS Physical Exam Vital Signs: Temp Pulse Resp BP Pulse Ox 97.6 F 54 L 11 L 93/39 L 99 03/12/18 12:00 03/12/18 08:50 03/12/18 10:00 03/12/18 09:44 03/12/18 10:00 Intake & Output 03/11/18 03/12/18 03/13/18 06:59 06:59 06:59 Intake Total 2400 1700 1100 Output Total 3100 2385 615 Balance -700 -685 485 Weight 96.7 kg 97.8 kg General appearance: PRESENT: no acute distress, cooperative, well-developed, well-nourished Head exam: PRESENT: atraumatic, normocephalic Eye exam: PRESENT: conjunctiva pink, EOMI, PERRLA. ABSENT: scleral icterus Ear exam: PRESENT: normal external ear exam Mouth exam: PRESENT: moist, tongue midline Neck exam: ABSENT: carotid bruit, JVD, lymphadenopathy, thyromegaly Respiratory exam: PRESENT: clear to auscultation arash. ABSENT: rales, rhonchi, wheezes Cardiovascular exam: PRESENT: RRR. ABSENT: diastolic murmur, rubs, systolic murmur Pulses: PRESENT: normal dorsalis pedis pul Vascular exam: PRESENT: normal capillary refill GI/Abdominal exam: PRESENT: normal bowel sounds, soft. ABSENT: distended, guarding, mass, organolmegaly, rebound, tenderness Rectal exam: PRESENT: deferred Extremities exam: PRESENT: full ROM. ABSENT: calf tenderness, clubbing, pedal edema Neurological exam: PRESENT: oriented to person, CN II-XII grossly intact, other - Patient is sleepy but arousable.. ABSENT: motor sensory deficit Psychiatric exam: PRESENT: appropriate affect, normal mood. ABSENT: homicidal ideation, suicidal ideation Skin exam: PRESENT: dry, intact, warm. ABSENT: cyanosis, rash Results Laboratory Results: 03/08/18 03:58 03/11/18 17:06 03/11/18 17:06 Sodium 144.6 Potassium 3.6 Chloride 108 H Carbon Dioxide 27 Anion Gap 10 BUN 11 Creatinine 1.21 Est GFR ( Amer) > 60 Est GFR (Non-Af Amer) 57 L Glucose 101 Calcium 8.3 L Impressions: Abdomen/Pelvis CT 03/03/18 00:00 IMPRESSION: NO SIGNIFICANT OR ACUTE PROCESS IN THE ABDOMEN OR PELVIS. Head CTA 03/03/18 09:57 IMPRESSION: NO CTA EVIDENCE OF STENOSIS OR ANEURYSM OF THE [place] OF [place]. Neck CTA 03/03/18 09:57 IMPRESSION: NORMAL CTA OF THE EXTRA-CRANIAL CAROTID AND VERTEBRAL ARTERIES. Chest X-Ray 03/03/18 09:58 IMPRESSION: BORDERLINE CARDIOMEGALY. HAZY PULMONARY OPACITIES COULD REPRESENT EARLY PNEUMONIA OR DEVELOPING PULMONARY EDEMA. Head CT 03/06/18 00:00 IMPRESSION: Involutional changes of aging with microvascular ischemia. No acute imaging findings in the brain. EVIDENCE OF ACUTE STROKE: NO. Head MRI 03/06/18 00:00 IMPRESSION: 1. No acute intracranial abnormality. Suspect chronic changes including very mild small vessel disease and old right basal ganglia lacunar infarct. No suggestion of recent CVA. EVIDENCE OF ACUTE STROKE: NO. Cystogram 03/07/18 00:00 IMPRESSION: Left-sided vesicoureteral reflux. Bladder configuration suggests chronic urinary outflow obstruction versus neurogenic bladder. Yepez catheter balloon and tip are in good positioning in the urinary bladder Renal Ultrasound 03/07/18 00:00 IMPRESSION: 1. NORMAL RENAL ULTRASOUND. 2. YEPEZ CATHETER DESCRIBED. THE TIP OF THE CATHETER INDENTS THE BLADDER WALL AND ON SOME IMAGES THERE IS SUGGESTION THAT THE TIP MAY PENETRATE THE BLADDER WALL. THE CATHETER MAY NEED TO BE REPOSITIONED OR REPLACED. IF THERE IS SUSPICION THAT THE TIP HAS PENETRATED THE BLADDER WALL, THEN MAY CONSIDER A CYSTOGRAM TO DETERMINE IF THERE IS ANY INDICATION OF LEAKAGE FROM THE BLADDER. Assessment & Plan - Diagnosis (1) UTI (urinary tract infection) Qualifiers: Urinary tract infection type: catheter-associated UTI Indwelling urinary catheter type: unspecified Encounter type: initial encounter Qualified Code( s): T83.511A - Infection and inflammatory reaction due to indwelling urethral catheter, initial encounter; N39.0 - Urinary tract infection, site not specified ; N39.0 - Urinary tract infection, site not specified Is this a current diagnosis for this admission?: Yes Plan: Catheter associated UTI. Culture positive for Pseudomonas and Proteus. Continue Zosyn. Pending ID recommendation for de-escalation of Zosyn. (2) Sepsis Qualifiers: Sepsis type: sepsis due to unspecified organism Qualified Code(s): A41.9 - Sepsis, unspecified organism Is this a current diagnosis for this admission?: Yes Plan: Resolved, possibly decline secondary to pyelonephritis. Urine culture positive for Pseudomonas. Patient has chronic indwelling catheter due to obstructive uropathy which was changed on admission. Chronic decubitus ulcer culture positive for MRSA however does not appear to be acutely infected, vancomycin was DC'd. Day 8 of Zosyn. Patient had good clinical response in the first 3 days of therapy. Awaiting final recommendations from ID regarding de-escalation of Zosyn. (3) Hypotension Qualifiers: Hypotension type: unspecified hypotension type Qualified Code(s): I95.9 - Hypotension, unspecified Is this a current diagnosis for this admission?: Yes Plan: Initially patient was hypotensive due to septic shock. Patient has been normotensive however his blood pressure drops when he goes to sleep. Will decrease lisinopril to 20 mg, monitor vitals (4) Acute on chronic renal failure Is this a current diagnosis for this admission?: Yes Plan: Creatinine stable Electrolytes within normal limits. Most likely prerenal. Monitor vitals and volume status. Normal renal ultrasound. CMP tomorrow (5) BPH (benign prostatic hyperplasia) Qualifiers: Lower urinary tract symptom detail: urinary obstruction Is this a current diagnosis for this admission?: Yes Plan: Hold Flomax due to underlying hypotension. (6) Decubitus skin ulcer Is this a current diagnosis for this admission?: Yes Plan: Sacral decubitus ulcer stage II. Culture grew MRSA. No active drainage or signs of infection. Vancomycin has since been discontinued. Continue daily wound dressing. (7) Anemia Qualifiers: Anemia type: unspecified type Qualified Code(s): D64.9 - Anemia, unspecified Is this a current diagnosis for this admission?: Yes Plan: Stable. Possibly due to underlying CKD and chronic disease. Patient is DNR. Daily CBC. (8) Hematuria Is this a current diagnosis for this admission?: Yes Plan: Resolved. No recurrence in the past 3 days. Initial US showed questionable penetration of catheter tip against bladder wall. A cystogram was pursued which did not show perforation or injury to the bladder wall.
--- NOTE | 2018-03-12 16:16 | Progress Note ---
Provider Note Provider Note: ID Consult Note - follow up Asked to review patient's chart and spoke to Dr Coronado briefly via telephone. Pt not seen or examined. See prior note for details regarding culture results and initial presentation, exam, labs and imaging. Essentially, Mr Jackson has had an indwelling catheter for urinary outflow obstruction and was admitted with slurred speech and presentation initially concerning for CVA, but with this ruled out on imaging, and with patient hypotensive and hypothermic on admission, he was suspected of having sepsis. He was diagnosed with sepsis due to a urinary source (pyelonephritis or complicated UTI). His urine grew >100k cfu Pseudomonas aeruginosa. He has improved clinically and discharge is anticipated to SNF shortly. He has been treated with Zosyn since 03/03 (today is day 9). In general, for pyelonephritis, shorter courses have been investigated with fluoroquinolone. The lg'ts isolate is resistant to Cipro, unfortunately. I am not aware of good data to suggest that a shorter course is adequate with a beta-lactam, although with the patient's improvement, it might be entirely sufficient. Duration of therapy should take into account the patient's course and clinical context. Recommend completing an additional day of treatment, whether in hospital or at a jail facility if he can be given an appropriate IV antibiotic via a peripheral IV line. De-escalating to cefepime is a consideration, but comparatively 3rd and 4th generation cephalosporins may be more highly associated with C difficile infection than penicillins (other than the aminopenicillins), and an argument could be made to continue Zosyn to finish treatment. Suggest finishing 10 days of Zosyn. Loki Red MD [facility] Infectious Diseases pager [phone]
[2018-03-12] MEDS: SENNOSIDES/DOCUSATE 8.6-50 MG 1 EACH TABLET PO SCH (17:20)
[2018-03-12] MEDS: MELATONIN 3 MG TABLET PO SCH (20:08)
[2018-03-12] MEDS: ATORVASTATIN CALCIUM 40 MG TABLET PO SCH (20:08)
[2018-03-13] MEDS: PIPERACILLIN SODIUM/TAZOBACTAM 3.375 GM in NORMAL SALINE 100 ML IV SCH ×4 (00:21→18:21)
[2018-03-13 04:22] LABS: ABSOLUTE EOSINOPHILS # (AUTO) 0.2 10^3/uL (0.0-0.6); ABSOLUTE LYMPHOCYTES (AUTO) 2.3 10^3/uL (0.5-4.7); ABSOLUTE MONOCYTES (AUTO) 0.7 10^3/uL (0.1-1.4); ABSOLUTE NEUT (AUTO) 5.7 10^3/uL (1.7-8.2); BASOPHILS % (AUTO) 0.4 % (0-2); EOSINOPHILS % (AUTO) 2.4 % (0-6); LYMPHOCYTES % (AUTO) 25.6 % (13-45); MEAN CORPUSCULAR HEMOGLOBIN 29.4 pg (27.0-33.4); MEAN CORPUSCULAR HGB CONC 33.4 g/dL (32.0-36.0); MEAN CORPUSCULAR VOLUME 88 fl (80-97); MONOCYTES % (AUTO) 7.6 % (3-13); PLATELET COUNT 255 10^3/uL (150-450); RED BLOOD COUNT 2.72 10^6/uL (4.35-5.55); RED CELL DISTRIBUTION WIDTH 17.6 % (11.5-14.0); TOTAL CELLS COUNTED % (AUTO) 100 %
[2018-03-13 04:47] LABS: ALANINE AMINOTRANSFERASE 31 U/L (21-72); ALBUMIN 2.2 g/dL (3.5-5.0); ALKALINE PHOSPHATASE 104 U/L (38-126); ASPARTATE AMINO TRANSFERASE 16 U/L (17-59); BILIRUBIN,DIRECT 0.3 mg/dL (0.0-0.4); BILIRUBIN,TOTAL 0.3 mg/dL (0.2-1.3); BLOOD UREA NITROGEN 10 mg/dL (7-20); CALCIUM 8.4 mg/dL (8.4-10.2); CARBON DIOXIDE 29 mmol/L (22-30); CHLORIDE 108 mmol/L (98-107); GLUCOSE 108 mg/dL (75-110); POTASSIUM 3.2 mmol/L (3.6-5.0); SODIUM 141.4 mmol/L (137-145); TOTAL PROTEIN 5.5 g/dL (6.3-8.2)
[2018-03-13 04:49] LABS: ANION GAP 4 (5-19)
[2018-03-13] MEDS ORDERED: POTASSIUM CHLORIDE 20 MEQ/15 ML UDCUP PO ONE (07:51)
[2018-03-13] MEDS: DOCUSATE SODIUM 100 MG CAPSULE PO SCH (09:15)
[2018-03-13] MEDS: LISINOPRIL 10 MG TABLET PO SCH (09:17)
[2018-03-13] MEDS: FAMOTIDINE INJ/PF 20 MG/2 ML SDV IV SCH ×2 (09:27→22:04)
[2018-03-13] MEDS: LACTOBACILLUS ACIDOPHILUS 250 MG TAB PO SCH ×2 (09:27→22:04)
[2018-03-13] MEDS: HEPARIN SOD (PORCINE) 5,000 UNIT/ML 1 ML SYRINGE SUBCUT SCH ×2 (09:27→22:05)
[2018-03-13] MEDS: FUROSEMIDE 20 MG TABLET PO SCH (09:28)
[2018-03-13 10:28] LABS: FREE T4 (FREE THYROXINE) 1.26 ng/dL (0.78-2.19)
[2018-03-13 10:42] LABS: THYROID STIMULATING HORMONE 3.25 uIU/mL (0.47-4.68)
--- NOTE | 2018-03-13 13:47 | EKG REPORT ---
SEVERITY:- ABNORMAL ECG - JUNCTIONAL ESCAPE RHYTHM ABNRM R PROG, CONSIDER ASMI OR LEAD PLACEMENT : Confirmed by: Dalton Templeton MD 13-Mar-2018 13:47:10
[2018-03-13] MEDS: SCOPOLAMINE HYDROBROMIDE 1.5 MG PATCH.TD72 TD SCH (14:29)
[2018-03-13] MEDS: THEOPHYLLINE ANHYDROUS 100 MG TAB.SR.12H PO SCH ×2 (14:29→22:03)
[2018-03-13] MEDS: DEXTROSE 5%-WATER 1000 ML 1,000 ML IV PRN (14:29)
--- NOTE | 2018-03-13 16:20 | PDOC PROGRESS REPORT ---
Subjective Progress Note for:: 03/13/18 Subjective:: 87-year-old male past medical history of chronic decubitus ulcer, obstructive uropathy presented to ED and septic shock due to catheter associated UTI. Patient has chronic indwelling catheter due to obstructive uropathy which was replaced on admission. No acute events overnight patient has a bradycardic overnight when he is sleeping however heart rate goes into 50s once he is awake and stimulated. On my evaluation patient is sleepy but arousable, cooperative physical examination. Denies any pain, shortness of breath chest pain, abdominal pain, fever, or any urinary symptoms Reason For Visit: SEPSIS Physical Exam Vital Signs: Temp Pulse Resp BP Pulse Ox 93.8 F L 51 L 15 104/70 96 03/13/18 11:52 03/13/18 11:52 03/13/18 14:00 03/13/18 11:52 03/13/18 14:00 Intake & Output 03/12/18 03/13/18 03/14/18 06:59 06:59 06:59 Intake Total 1700 2400 1720 Output Total 2385 1440 435 Balance -179 481 2516 Weight 97.8 kg 98.7 kg General appearance: PRESENT: no acute distress, well-developed, well-nourished, other - Sleepy Head exam: PRESENT: atraumatic, normocephalic Eye exam: PRESENT: conjunctiva pink, EOMI, PERRLA. ABSENT: scleral icterus Ear exam: PRESENT: normal external ear exam Mouth exam: PRESENT: moist, tongue midline Neck exam: ABSENT: carotid bruit, JVD, lymphadenopathy, thyromegaly Respiratory exam: PRESENT: clear to auscultation arash. ABSENT: rales, rhonchi, wheezes Cardiovascular exam: PRESENT: RRR. ABSENT: diastolic murmur, rubs, systolic murmur Pulses: PRESENT: normal dorsalis pedis pul Vascular exam: PRESENT: normal capillary refill GI/Abdominal exam: PRESENT: normal bowel sounds, soft. ABSENT: distended, guarding, mass, organolmegaly, rebound, tenderness Rectal exam: PRESENT: deferred Extremities exam: PRESENT: full ROM. ABSENT: calf tenderness, clubbing, pedal edema Neurological exam: PRESENT: alert, awake, oriented to person, oriented to place , oriented to time, oriented to situation, CN II-XII grossly intact. ABSENT: motor sensory deficit Psychiatric exam: PRESENT: appropriate affect, normal mood. ABSENT: homicidal ideation, suicidal ideation Skin exam: PRESENT: dry, intact, warm. ABSENT: cyanosis, rash Results Laboratory Results: 03/13/18 04:04 03/13/18 04:04 03/13/18 03/13/18 03/13/18 04:04 04:04 04:04 WBC 9.0 RBC 2.72 L Hgb 8.0 L Hct 24.0 L MCV 88 MCH 29.4 MCHC 33.4 RDW 17.6 H Plt Count 255 Seg Neutrophils % 64.0 Lymphocytes % 25.6 Monocytes % 7.6 Eosinophils % 2.4 Basophils % 0.4 Absolute Neutrophils 5.7 Absolute Lymphocytes 2.3 Absolute Monocytes 0.7 Absolute Eosinophils 0.2 Absolute Basophils 0.0 Sodium 141.4 Potassium 3.2 L Chloride 108 H Carbon Dioxide 29 Anion Gap 4 L BUN 10 Creatinine 0.99 Est GFR ( Amer) > 60 Est GFR (Non-Af Amer) > 60 Glucose 108 Calcium 8.4 Total Bilirubin 0.3 AST 16 L ALT 31 Alkaline Phosphatase 104 Total Protein 5.5 L Albumin 2.2 L TSH Free T4 Free T3 pg/mL 2.47 L 03/13/18 04:04 WBC RBC Hgb Hct MCV MCH MCHC RDW Plt Count Seg Neutrophils % Lymphocytes % Monocytes % Eosinophils % Basophils % Absolute Neutrophils Absolute Lymphocytes Absolute Monocytes Absolute Eosinophils Absolute Basophils Sodium Potassium Chloride Carbon Dioxide Anion Gap BUN Creatinine Est GFR ( Amer) Est GFR (Non-Af Amer) Glucose Calcium Total Bilirubin AST ALT Alkaline Phosphatase Total Protein Albumin TSH 3.25 Free T4 1.26 Free T3 pg/mL Impressions: Abdomen/Pelvis CT 03/03/18 00:00 IMPRESSION: NO SIGNIFICANT OR ACUTE PROCESS IN THE ABDOMEN OR PELVIS. Head CTA 03/03/18 09:57 IMPRESSION: NO CTA EVIDENCE OF STENOSIS OR ANEURYSM OF THE [place] OF [place]. Neck CTA 03/03/18 09:57 IMPRESSION: NORMAL CTA OF THE EXTRA-CRANIAL CAROTID AND VERTEBRAL ARTERIES. Chest X-Ray 03/03/18 09:58 IMPRESSION: BORDERLINE CARDIOMEGALY. HAZY PULMONARY OPACITIES COULD REPRESENT EARLY PNEUMONIA OR DEVELOPING PULMONARY EDEMA. Head CT 03/06/18 00:00 IMPRESSION: Involutional changes of aging with microvascular ischemia. No acute imaging findings in the brain. EVIDENCE OF ACUTE STROKE: NO. Head MRI 03/06/18 00:00 IMPRESSION: 1. No acute intracranial abnormality. Suspect chronic changes including very mild small vessel disease and old right basal ganglia lacunar infarct. No suggestion of recent CVA. EVIDENCE OF ACUTE STROKE: NO. Cystogram 03/07/18 00:00 IMPRESSION: Left-sided vesicoureteral reflux. Bladder configuration suggests chronic urinary outflow obstruction versus neurogenic bladder. Yepez catheter balloon and tip are in good positioning in the urinary bladder Renal Ultrasound 03/07/18 00:00 IMPRESSION: 1. NORMAL RENAL ULTRASOUND. 2. YEPEZ CATHETER DESCRIBED. THE TIP OF THE CATHETER INDENTS THE BLADDER WALL AND ON SOME IMAGES THERE IS SUGGESTION THAT THE TIP MAY PENETRATE THE BLADDER WALL. THE CATHETER MAY NEED TO BE REPOSITIONED OR REPLACED. IF THERE IS SUSPICION THAT THE TIP HAS PENETRATED THE BLADDER WALL, THEN MAY CONSIDER A CYSTOGRAM TO DETERMINE IF THERE IS ANY INDICATION OF LEAKAGE FROM THE BLADDER. Assessment & Plan - Diagnosis (1) UTI (urinary tract infection) Qualifiers: Urinary tract infection type: catheter-associated UTI Indwelling urinary catheter type: unspecified Encounter type: initial encounter Qualified Code( s): T83.511A - Infection and inflammatory reaction due to indwelling urethral catheter, initial encounter; N39.0 - Urinary tract infection, site not specified ; N39.0 - Urinary tract infection, site not specified Is this a current diagnosis for this admission?: Yes Plan: Catheter associated UTI. Culture positive for Pseudomonas and Proteus. Continue Zosyn. Will complete 10 days of Zosyn as per ID recommendation. (2) Sepsis Qualifiers: Sepsis type: sepsis due to unspecified organism Qualified Code(s): A41.9 - Sepsis, unspecified organism Is this a current diagnosis for this admission?: Yes Plan: Resolved, possibly secondary to pyelonephritis. Urine culture positive for Pseudomonas. Patient has chronic indwelling catheter due to obstructive uropathy which was changed on admission. Chronic decubitus ulcer culture positive for MRSA however does not appear to be acutely infected, vancomycin was DC'd. Day 9/10 of Zosyn. Patient had good clinical response in the first 3 days of therapy. (3) Hypotension Qualifiers: Hypotension type: unspecified hypotension type Qualified Code(s): I95.9 - Hypotension, unspecified Is this a current diagnosis for this admission?: Yes Plan: Initially patient was hypotensive due to septic shock. Patient has been normotensive however his blood pressure drops when he goes to sleep. Will decrease lisinopril to 20 mg, monitor vitals (4) Acute on chronic renal failure Is this a current diagnosis for this admission?: Yes Plan: Creatinine 0.9. Most likely prerenal. Monitor vitals and volume status. Normal renal ultrasound. (5) BPH (benign prostatic hyperplasia) Qualifiers: Lower urinary tract symptom detail: urinary obstruction Is this a current diagnosis for this admission?: Yes Plan: Hold Flomax due to underlying hypotension. (6) Decubitus skin ulcer Is this a current diagnosis for this admission?: Yes Plan: Sacral decubitus ulcer stage II. Culture grew MRSA. No active drainage or signs of infection. Vancomycin has since been discontinued. Continue daily wound dressing. (7) Anemia Qualifiers: Anemia type: unspecified type Qualified Code(s): D64.9 - Anemia, unspecified Is this a current diagnosis for this admission?: Yes Plan: Stable. Possibly due to underlying CKD and chronic disease. Patient is DNR. Daily CBC. (8) Hematuria Is this a current diagnosis for this admission?: Yes Plan: Resolved. No recurrence in the past 3 days. Initial US showed questionable penetration of catheter tip against bladder wall. A cystogram was pursued which did not show perforation or injury to the bladder wall. (9) Bradycardia Is this a current diagnosis for this admission?: Yes Plan: Asymptomatic. Started on theophylline and scopolamine patch as per cardiology recommendation. Pending official cardiology consult. (10) Hypothermia Qualifiers: Encounter type: subsequent encounter Qualified Code(s): T68.XXXD - Hypothermia, subsequent encounter Is this a current diagnosis for this admission?: Yes Plan: Patient has been hypothermic overnight asymptomatic. Thyroid function and random cortisol level within normal limits. Unlikely patient developing another infectious process. The 03/18 of Zosyn. We will continue bear hugger and monitor vitals.
[2018-03-13] MEDS: SENNOSIDES/DOCUSATE 8.6-50 MG 1 EACH TABLET PO SCH (18:21)
--- NOTE | 2018-03-13 19:55 | PDOC CONSULTATION ---
Consultation Consult Date: 03/13/18 Attending physician:: LOUISE VALADEZ Consult reason:: Bradycardia History of Present Illness Admission Date/PCP: 03/03/18 13:04 NINA ADAMES DO Patient complains of: No complaints by the patient History of Present Illness: JOVAN PUENTE is a 87 year old male with past medical history of CKD, pyelonephritis, obstructive uropathy on chronic indwelling catheter, chronic decubitus ulcer, BPH. Patient is bedbound currently living in a care home. Patient was brought from [facility] where he was noticed to have slurred speech and weakness upon awakening this morning at 7:30 AM. While in the ED was found to be hypothermic hypotensive with mild leukocytosis. Patient was admitted for workup of sepsis/stroke. ED was able to get in touch with her daughter who is stated that her father has been confused since yesterday but prior to that patient is usually alert and oriented 4 and speaks normally, however he is bedbound due to unclear reasons. She had also mentioned that her father possibly had a previous stroke but cannot say if it was hemorrhagic or embolic. Patient's speech is very slow and incoherent, he is somnolent however easily arousable. Per limited review of systems due to patient's mental status patient denies any symptoms. Patient was noted to be intermittently bradycardic but this morning was noted to have heart rate in the high 30s, low 40s but with baseline mentation and good peripheral perfusion. I was asked to evaluate patient for reasons for possible bradycardia and treatment. However subsequently I was informed that we did not need to be very aggressive. Past Medical History Cardiac Medical History: Reports: Hyperlipidema, Hypertension Denies: Atrial Fibrillation, Congestive Heart Failure, Coronary Artery Disease, DVT, Myocardial Infarction, Peripheral Vascular Disease, Pulmonary Embolism, Heart Murmur Endocrine Medical History: Denies: Diabetes Mellitus Type 1, Diabetes Mellitus Type 2, Hyperthyroidism, Hypothyroidism Malignancy Medical History: Denies: Bone Cancer, Brain Cancer, Breast Cancer, Cervical Cancer, Colorectal Cancer, Leukemia, Liver Cancer, Lung Cancer, Lymphoma, Ovarian Cancer , Pancreatic Cancer, Renal (Kidney) Cancer, Skin Cancer GI Medical History: Denies: Cirrhosis, Crohn's Disease, Diverticulitis, Gastroesophageal Reflux Disease, Hepatitis, Hiatal Hernia, Ulcerative Colitis Musculoskeltal Medical History: Reports: Arthritis Skin Medical History: Denies: Eczema, Psoriasis Psychiatric Medical History: Denies: Attention Deficit Hyperactivity Disorder, Bipolar Disorder, Dementia , Depression, Personality Disorder, Post Traumatic Stress Disorder, Schizoaffective Disorder Hematology: Reports: Anemia Infectious Medical History: Denies: Clostridium Difficile, HIV, Methicillin-Resistant Staph Aureus, Vancomycin-Resistant Enterococci Past Surgical History Past Surgical History: Reports: Appendectomy Social History Information Source: Relative Lives with: Shelter Smoking Status: Former Smoker Hx Recreational Drug Use: No Hx Prescription Drug Abuse: No - Advance Directive Resuscitation Status: Do Not Resuscitate Surrogate healthcare decision maker:: Patient's daughter is the surrogate decision-maker Family History Family History: Hypertension Parental Family History Reviewed: Yes Children Family History Reviewed: Yes Sibling(s) Family History Reviewed.: Yes Medication/Allergy Home Medications: Acidoph/L.bulg/Bif.b/S.thermop [Bacid Caplet] 1 tab PO Q12 03/03/18 Aspirin [Ecotrin 81 mg EC Tablet] 81 mg PO QAM 03/03/18 Atorvastatin Calcium [Lipitor 40 mg Tablet] 40 mg PO DAILY@199903/03/18 Cholecalciferol (Vitamin D3) [Vitamin D3 1000 Unit Tablet] 1,000 unit PO QAM Docusate Calcium [Manny-Tin] 240 mg PO QA 03/03/18 Furosemide [Lasix 20 mg Tablet] 20 mg PO QAM 03/03/18 Glycerin [Adult Glycerin] 1 supp IN DAILYP PRN 03/03/18 Ipratropium/Albuterol Sulfate [Iprat-Albut 0.5-3(2.5) mg/3 ml] 3 ml NEB Q12 Ipratropium/Albuterol Sulfate [Iprat-Albut 0.5-3(2.5) mg/3 ml] 3 ml NEB Q4HP PRN 03/03/18 Lidocaine [Lidoderm 5% (700 mg) Transdermal Patch] 2 patch TOP DAILY 03/03/18 Lisinopril [Prinivil 40 mg Tablet] 40 mg PO QAM 03/03/18 Melatonin [Melatonin 3 mg Tablet] 3 mg PO DAILY@199903/03/18 Multivitamin [Tab-A-Allen (Multiple Vitamin) Tablet] 1 tab PO QAM 03/03/18 Nifedipine [Procardia XL 60 mg Tablet] 60 mg PO QAM 03/03/18 Polyethylene Glycol 3350 [Miralax Powder 17 gm/Packet] 17 gm PO QAM 03/03/18 Sennosides [Senna Lax] 8.6 mg PO QPM 03/03/18 Tamsulosin HCl [Flomax 0.4 mg Cap.sr] 0.4 mg PO QPM 03/03/18 Temazepam [Restoril 15 mg Capsule] 15 mg PO QHS 03/03/18 Tolterodine Tartrate [Tolterodine Tartrate ER] 4 mg PO QAM 03/03/18 Tramadol HCl [Ultram 50 mg Tablet] 50 mg PO Q6HP PRN 03/03/18 Allergies/Adverse Reactions: No Known Allergies Allergy (Unverified 08/20/17 17:35) Review of Systems ROS unobtainable: Due to mental status Physical Exam Vital Signs: Temp Pulse Resp BP Pulse Ox 97.8 F 68 20 113/41 L 96 03/13/18 19:30 03/13/18 19:30 03/13/18 19:30 03/13/18 19:30 03/13/18 19:30 Intake & Output 03/12/18 03/13/18 03/14/18 06:59 06:59 06:59 Intake Total 1700 2400 1820 Output Total 2385 1440 610 Balance -267 675 7444 Weight 97.8 kg 98.7 kg Exam: GENERAL: well-nourished and in no acute distress. Patient is alert but not oriented to place time or person. HEAD: Atraumatic, normocephalic. EYES: Pupils equal round and reactive to light, extraocular movements intact, sclera anicteric, conjunctiva are normal. ENT: TMs normal, nares patent, oropharynx clear without exudates. Moist mucous membranes. No oral ulcerations or bleeding gums noted NECK: supple without lymphadenopathy or JVD. Trachea is central. No cervical or axillary lymphadenopathy noted. Carotids are 2+ LUNGS: Breath sounds bibasilar fine crackles at bases. No significant dullness noted. CHEST: Palpation of chest wall shows no significant chest wall tenderness. HEART: [place] [employer], No PSH, 2/6 ARIANNE aortic area, 1/6 han systolic murmur mitral area, rubs or gallops. ABDOMEN: Soft, no significant tenderness appreciated, normoactive bowel sounds. No guarding, no rebound. No rigidity noted . No masses appreciated. EXTREMITIES: Pedal pulses are 1-2+, no calf tenderness noted, Trace + pedal edema noted. No clubbing or cyanosis. NEUROLOGICAL: Patient is alert, he is noted to move all 4 extremities and no facial asymmetry noted. PSYCH: Patient cannot participate in a psych exam because of the patient's current mental status SKIN: No significant ecchymosis, rash, ulcerations or signs of pruritus noted. MUSCULOSKELETAL EXAM: No significant joint swelling noted. Results Laboratory Results: 03/13/18 04:04 03/13/18 04:04 03/13/18 03/13/18 03/13/18 04:04 04:04 04:04 WBC 9.0 RBC 2.72 L Hgb 8.0 L Hct 24.0 L MCV 88 MCH 29.4 MCHC 33.4 RDW 17.6 H Plt Count 255 Seg Neutrophils % 64.0 Lymphocytes % 25.6 Monocytes % 7.6 Eosinophils % 2.4 Basophils % 0.4 Absolute Neutrophils 5.7 Absolute Lymphocytes 2.3 Absolute Monocytes 0.7 Absolute Eosinophils 0.2 Absolute Basophils 0.0 Sodium 141.4 Potassium 3.2 L Chloride 108 H Carbon Dioxide 29 Anion Gap 4 L BUN 10 Creatinine 0.99 Est GFR ( Amer) > 60 Est GFR (Non-Af Amer) > 60 Glucose 108 Calcium 8.4 Total Bilirubin 0.3 AST 16 L ALT 31 Alkaline Phosphatase 104 Total Protein 5.5 L Albumin 2.2 L TSH Free T4 Free T3 pg/mL 2.47 L 03/13/18 04:04 WBC RBC Hgb Hct MCV MCH MCHC RDW Plt Count Seg Neutrophils % Lymphocytes % Monocytes % Eosinophils % Basophils % Absolute Neutrophils Absolute Lymphocytes Absolute Monocytes Absolute Eosinophils Absolute Basophils Sodium Potassium Chloride Carbon Dioxide Anion Gap BUN Creatinine Est GFR ( Amer) Est GFR (Non-Af Amer) Glucose Calcium Total Bilirubin AST ALT Alkaline Phosphatase Total Protein Albumin TSH 3.25 Free T4 1.26 Free T3 pg/mL EKG Comments: Bradycardia, underlying atrial rhythm possibly A. fib versus junctional versus sinus, P waves are very difficult to identify but may be there. Impressions: Abdomen/Pelvis CT 03/03/18 00:00 IMPRESSION: NO SIGNIFICANT OR ACUTE PROCESS IN THE ABDOMEN OR PELVIS. Head CTA 03/03/18 09:57 IMPRESSION: NO CTA EVIDENCE OF STENOSIS OR ANEURYSM OF THE [place] OF [place]. Neck CTA 03/03/18 09:57 IMPRESSION: NORMAL CTA OF THE EXTRA-CRANIAL CAROTID AND VERTEBRAL ARTERIES. Chest X-Ray 03/03/18 09:58 IMPRESSION: BORDERLINE CARDIOMEGALY. HAZY PULMONARY OPACITIES COULD REPRESENT EARLY PNEUMONIA OR DEVELOPING PULMONARY EDEMA. Head CT 03/06/18 00:00 IMPRESSION: Involutional changes of aging with microvascular ischemia. No acute imaging findings in the brain. EVIDENCE OF ACUTE STROKE: NO. Head MRI 03/06/18 00:00 IMPRESSION: 1. No acute intracranial abnormality. Suspect chronic changes including very mild small vessel disease and old right basal ganglia lacunar infarct. No suggestion of recent CVA. EVIDENCE OF ACUTE STROKE: NO. Cystogram 03/07/18 00:00 IMPRESSION: Left-sided vesicoureteral reflux. Bladder configuration suggests chronic urinary outflow obstruction versus neurogenic bladder. Yepez catheter balloon and tip are in good positioning in the urinary bladder Renal Ultrasound 03/07/18 00:00 IMPRESSION: 1. NORMAL RENAL ULTRASOUND. 2. YEPEZ CATHETER DESCRIBED. THE TIP OF THE CATHETER INDENTS THE BLADDER WALL AND ON SOME IMAGES THERE IS SUGGESTION THAT THE TIP MAY PENETRATE THE BLADDER WALL. THE CATHETER MAY NEED TO BE REPOSITIONED OR REPLACED. IF THERE IS SUSPICION THAT THE TIP HAS PENETRATED THE BLADDER WALL, THEN MAY CONSIDER A CYSTOGRAM TO DETERMINE IF THERE IS ANY INDICATION OF LEAKAGE FROM THE BLADDER. Assessment & Plan - Diagnosis (1) Bradycardia Is this a current diagnosis for this admission?: Yes (2) Atrial fibrillation Qualifiers: Atrial fibrillation type: chronic Qualified Code(s): I48.2 - Chronic atrial fibrillation (3) Acute on chronic renal failure Is this a current diagnosis for this admission?: Yes (4) Altered mental status Qualifiers: Altered mental status type: somnolence Qualified Code(s): R40.0 - Somnolence Is this a current diagnosis for this admission?: Yes (5) Aphasia Is this a current diagnosis for this admission?: Yes (6) SARA (obstructive sleep apnea) Is this a current diagnosis for this admission?: Yes - Notes Notes: Bradycardia: Patient noted to be bradycardic but relatively asymptomatic. Had ordered a free T3 and free T4. Free T3 came back low. Will start patient on Cytomel at 5 mcg per day. Initially patient was started on scopolamine and also theophylline. There has been some improvement in heart rate. This could be withdrawn slowly if needed. Atrial fibrillation: Chronic. Currently rate is on the low side. We will leave decision regarding chronic anticoagulation to the courtesy clerk. Acute on chronic renal failure: Currently is stable. Altered mental status: Exact etiology not clear but could be dementia, could be other causes. Obstructive sleep apnea: Patient has a history of it. Untreated obstructive sleep apnea could actually cause bradycardia. - Time Time Spent: 30 to 50 Minutes - CODE STATUS : was discussed, patient remains DO NOT RESUSCITATE. Surrogate decision-maker unchanged. Multiple medical problems were addressed. More than 50% of the time spent coordinating care, discussing management plans with involved caregivers. Management plans discussed with involved personnels. Medical decision making was of moderate to high complexity, patient's has multiple comorbidities. Medications reviewed and adjusted accordingly: Yes
[2018-03-13] MEDS ORDERED: LIOTHYRONINE SODIUM 25 MCG TABLET PO SCH (20:00)
[2018-03-13] MEDS: ATORVASTATIN CALCIUM 40 MG TABLET PO SCH (20:34)
[2018-03-13] MEDS: LIOTHYRONINE SODIUM 5 MCG TABLET PO SCH (20:34)
[2018-03-13] MEDS: MELATONIN 3 MG TABLET PO SCH (20:34)
[2018-03-13] MEDS: METRONIDAZOLE 500 MG/NS RTU 500 MG/100 ML RTUPB IV SCH (22:03)
[2018-03-14] MEDS: PIPERACILLIN SODIUM/TAZOBACTAM 3.375 GM in NORMAL SALINE 100 ML IV SCH ×2 (00:31→10:10)
[2018-03-14 09:17] LABS: ABSOLUTE BASOPHILS # (AUTO) 0.1 10^3/uL (0.0-0.2); ABSOLUTE EOSINOPHILS # (AUTO) 0.2 10^3/uL (0.0-0.6); ABSOLUTE MONOCYTES (AUTO) 0.8 10^3/uL (0.1-1.4); ABSOLUTE NEUT (AUTO) 9.3 10^3/uL (1.7-8.2); BASOPHILS % (AUTO) 0.5 % (0-2); EOSINOPHILS % (AUTO) 1.4 % (0-6); HEMATOCRIT 24.6 % (37.9-51.0); LYMPHOCYTES % (AUTO) 22.2 % (13-45); MEAN CORPUSCULAR HEMOGLOBIN 28.3 pg (27.0-33.4); MEAN CORPUSCULAR HGB CONC 32.5 g/dL (32.0-36.0); MEAN CORPUSCULAR VOLUME 87 fl (80-97); MONOCYTES % (AUTO) 6.4 % (3-13); PLATELET COUNT 356 10^3/uL (150-450); RED BLOOD COUNT 2.82 10^6/uL (4.35-5.55); RED CELL DISTRIBUTION WIDTH 17.4 % (11.5-14.0); SEGMENTED NEUTROPHILS % (AUTO) 69.5 % (42-78); TOTAL CELLS COUNTED % (AUTO) 100 %; WHITE BLOOD COUNT 13.3 10^3/uL (4.0-10.5)
[2018-03-14 09:29] LABS: ALANINE AMINOTRANSFERASE 33 U/L (21-72); ALBUMIN 2.2 g/dL (3.5-5.0); ALKALINE PHOSPHATASE 108 U/L (38-126); ANION GAP 7 (5-19); ASPARTATE AMINO TRANSFERASE 16 U/L (17-59); BILIRUBIN,DIRECT 0.2 mg/dL (0.0-0.4); BILIRUBIN,TOTAL 0.2 mg/dL (0.2-1.3); BLOOD UREA NITROGEN 12 mg/dL (7-20); CALCIUM 8.3 mg/dL (8.4-10.2); CARBON DIOXIDE 28 mmol/L (22-30); CHLORIDE 108 mmol/L (98-107); GLUCOSE 102 mg/dL (75-110); POTASSIUM 3.5 mmol/L (3.6-5.0); SODIUM 143.3 mmol/L (137-145); TOTAL PROTEIN 5.4 g/dL (6.3-8.2)
[2018-03-14] MEDS: DOCUSATE SODIUM 100 MG CAPSULE PO SCH (10:11)
[2018-03-14] MEDS: LISINOPRIL 10 MG TABLET PO SCH (10:11)
[2018-03-14] MEDS: FUROSEMIDE 20 MG TABLET PO SCH (10:11)
[2018-03-14] MEDS: LIOTHYRONINE SODIUM 5 MCG TABLET PO SCH (10:55)
[2018-03-14] MEDS: THEOPHYLLINE ANHYDROUS 100 MG TAB.SR.12H PO SCH ×2 (10:55→22:03)
[2018-03-14] MEDS: FAMOTIDINE INJ/PF 20 MG/2 ML SDV IV SCH (10:55)
[2018-03-14] MEDS: LACTOBACILLUS ACIDOPHILUS 250 MG TAB PO SCH ×2 (10:55→22:03)
[2018-03-14] MEDS: HEPARIN SOD (PORCINE) 5,000 UNIT/ML 1 ML SYRINGE SUBCUT SCH ×2 (10:55→22:04)
[2018-03-14] MEDS ORDERED: POTASSIUM CHLORIDE 20 MEQ/15 ML UDCUP PO ONE (12:21)
[2018-03-14] MEDS ORDERED: MAGNESIUM SULFATE/D5W 1 GM/100 ML RTUPB IV ONE (12:22)
--- NOTE | 2018-03-14 12:46 | PDOC PROGRESS REPORT ---
Subjective Progress Note for:: 03/14/18 Subjective:: 87-year-old male past medical history of chronic decubitus ulcer, obstructive uropathy presented to ED and septic shock due to catheter associated UTI. Patient has chronic indwelling catheter due to obstructive uropathy which was replaced on admission. Patient is alert today however still oriented 1. He cooperates with physical examination and communicates very well he states that his daughter is coming today to see him. Yesterday he was having some loose bowel and C. difficile toxin was sent which came back positive however patient denies any abdominal pain, fever, chills, lower back pain, shortness of breath, chest pain. Reason For Visit: SEPSIS Physical Exam Vital Signs: Temp Pulse Resp BP Pulse Ox 97.0 F 66 19 107/50 L 95 03/14/18 11:46 03/14/18 11:46 03/14/18 11:49 03/14/18 11:49 03/14/18 11:49 Intake & Output 03/13/18 03/14/18 03/15/18 06:59 06:59 06:59 Intake Total 2400 1820 Output Total 1440 1010 Balance 960 810 Weight 98.7 kg General appearance: PRESENT: no acute distress, well-developed, well-nourished Head exam: PRESENT: atraumatic, normocephalic Eye exam: PRESENT: conjunctiva pink, EOMI, PERRLA. ABSENT: scleral icterus Ear exam: PRESENT: normal external ear exam Mouth exam: PRESENT: moist, tongue midline Neck exam: ABSENT: carotid bruit, JVD, lymphadenopathy, thyromegaly Respiratory exam: PRESENT: clear to auscultation arash. ABSENT: rales, rhonchi, wheezes Cardiovascular exam: PRESENT: RRR. ABSENT: diastolic murmur, rubs, systolic murmur Pulses: PRESENT: normal dorsalis pedis pul Vascular exam: PRESENT: normal capillary refill GI/Abdominal exam: PRESENT: normal bowel sounds, soft. ABSENT: distended, guarding, mass, organolmegaly, rebound, tenderness Rectal exam: PRESENT: deferred Extremities exam: PRESENT: full ROM - Passive range of motion normal patient is able to move his both upper and lower extremities.. ABSENT: calf tenderness, clubbing, pedal edema Neurological exam: PRESENT: alert, awake, oriented to person, CN II-XII grossly intact. ABSENT: motor sensory deficit Psychiatric exam: PRESENT: appropriate affect, normal mood. ABSENT: homicidal ideation, suicidal ideation Skin exam: PRESENT: dry, intact, warm. ABSENT: cyanosis, rash Results Laboratory Results: 03/14/18 04:11 03/14/18 04:41 03/14/18 03/14/18 04:11 04:41 WBC 13.3 H RBC 2.82 L Hgb 8.0 L Hct 24.6 L MCV 87 MCH 28.3 MCHC 32.5 RDW 17.4 H Plt Count 356 Seg Neutrophils % 69.5 Lymphocytes % 22.2 Monocytes % 6.4 Eosinophils % 1.4 Basophils % 0.5 Absolute Neutrophils 9.3 H Absolute Lymphocytes 3.0 Absolute Monocytes 0.8 Absolute Eosinophils 0.2 Absolute Basophils 0.1 Sodium 143.3 Potassium 3.5 L Chloride 108 H Carbon Dioxide 28 Anion Gap 7 BUN 12 Creatinine 1.10 Est GFR ( Amer) > 60 Est GFR (Non-Af Amer) > 60 Glucose 102 Calcium 8.3 L Magnesium 1.7 Total Bilirubin 0.2 AST 16 L ALT 33 Alkaline Phosphatase 108 Total Protein 5.4 L Albumin 2.2 L Impressions: Abdomen/Pelvis CT 03/03/18 00:00 IMPRESSION: NO SIGNIFICANT OR ACUTE PROCESS IN THE ABDOMEN OR PELVIS. Head CTA 03/03/18 09:57 IMPRESSION: NO CTA EVIDENCE OF STENOSIS OR ANEURYSM OF THE [place]. Neck CTA 03/03/18 09:57 IMPRESSION: NORMAL CTA OF THE EXTRA-CRANIAL CAROTID AND VERTEBRAL ARTERIES. Chest X-Ray 03/03/18 09:58 IMPRESSION: BORDERLINE CARDIOMEGALY. HAZY PULMONARY OPACITIES COULD REPRESENT EARLY PNEUMONIA OR DEVELOPING PULMONARY EDEMA. Head CT 03/06/18 00:00 IMPRESSION: Involutional changes of aging with microvascular ischemia. No acute imaging findings in the brain. EVIDENCE OF ACUTE STROKE: NO. Head MRI 03/06/18 00:00 IMPRESSION: 1. No acute intracranial abnormality. Suspect chronic changes including very mild small vessel disease and old right basal ganglia lacunar infarct. No suggestion of recent CVA. EVIDENCE OF ACUTE STROKE: NO. Cystogram 03/07/18 00:00 IMPRESSION: Left-sided vesicoureteral reflux. Bladder configuration suggests chronic urinary outflow obstruction versus neurogenic bladder. Yepez catheter balloon and tip are in good positioning in the urinary bladder Renal Ultrasound 03/07/18 00:00 IMPRESSION: 1. NORMAL RENAL ULTRASOUND. 2. YEPEZ CATHETER DESCRIBED. THE TIP OF THE CATHETER INDENTS THE BLADDER WALL AND ON SOME IMAGES THERE IS SUGGESTION THAT THE TIP MAY PENETRATE THE BLADDER WALL. THE CATHETER MAY NEED TO BE REPOSITIONED OR REPLACED. IF THERE IS SUSPICION THAT THE TIP HAS PENETRATED THE BLADDER WALL, THEN MAY CONSIDER A CYSTOGRAM TO DETERMINE IF THERE IS ANY INDICATION OF LEAKAGE FROM THE BLADDER. Assessment & Plan - Diagnosis (1) C. difficile diarrhea Is this a current diagnosis for this admission?: Yes Plan: Mild leukocytosis. Creatinine stable. Symptoms minimal. Will start on Flagyl 500 every 8 hours. Will DC Zosyn patient has received 10/10 days of Zosyn for his catheter associated UTI (2) UTI (urinary tract infection) Qualifiers: Urinary tract infection type: catheter-associated UTI Indwelling urinary catheter type: unspecified Encounter type: initial encounter Qualified Code( s): T83.511A - Infection and inflammatory reaction due to indwelling urethral catheter, initial encounter; N39.0 - Urinary tract infection, site not specified ; N39.0 - Urinary tract infection, site not specified Is this a current diagnosis for this admission?: Yes Plan: Catheter associated UTI. Culture positive for Pseudomonas and Proteus. The of Zosyn as per ID recommendation. DC Zosyn today (3) Sepsis Qualifiers: Sepsis type: sepsis due to unspecified organism Qualified Code(s): A41.9 - Sepsis, unspecified organism Is this a current diagnosis for this admission?: Yes Plan: Resolved, possibly secondary to pyelonephritis. Urine culture positive for Pseudomonas. Patient has chronic indwelling catheter due to obstructive uropathy which was changed on admission. Chronic decubitus ulcer culture positive for MRSA however does not appear to be acutely infected, vancomycin was DC'd. 04/17 on Zosyn. The Zosyn today. Patient had good clinical response. (4) Hypotension Qualifiers: Hypotension type: unspecified hypotension type Qualified Code(s): I95.9 - Hypotension, unspecified Is this a current diagnosis for this admission?: Yes Plan: Initially patient was hypotensive due to septic shock. Patient has been normotensive however his blood pressure drops when he goes to sleep. Will hold antihypertensives. Restart lisinopril at 5 mg p.o. daily once clinically appropriate. (5) Acute on chronic renal failure Is this a current diagnosis for this admission?: Yes Plan: Creatinine 1.1 Most likely prerenal. Monitor vitals and volume status. Normal renal ultrasound. (6) BPH (benign prostatic hyperplasia) Qualifiers: Lower urinary tract symptom detail: urinary obstruction Is this a current diagnosis for this admission?: Yes Plan: Hold Flomax due to underlying hypotension. Restart once hypotension has improved (7) Decubitus skin ulcer Is this a current diagnosis for this admission?: Yes Plan: Sacral decubitus ulcer stage II. Culture grew MRSA. No active drainage or signs of infection. Vancomycin has since been discontinued. Continue daily wound dressing. (8) Anemia Qualifiers: Anemia type: unspecified type Qualified Code(s): D64.9 - Anemia, unspecified Is this a current diagnosis for this admission?: Yes Plan: Stable. Possibly due to underlying CKD and chronic disease. Patient is DNR. Daily CBC. (9) Hematuria Is this a current diagnosis for this admission?: Yes Plan: Resolved. No recurrence in the past 3 days. Initial US showed questionable penetration of catheter tip against bladder wall. A cystogram was pursued which did not show perforation or injury to the bladder wall. (10) Bradycardia Is this a current diagnosis for this admission?: Yes Plan: Improved since starting on the scopolamine and theophylline. Pending official cardiology consult. (11) Hypothermia Qualifiers: Encounter type: subsequent encounter Qualified Code(s): T68.XXXD - Hypothermia, subsequent encounter Is this a current diagnosis for this admission?: Yes Plan: Resolved. Thyroid function and random cortisol level within normal limits. May have been caused by underlying C. difficile colitis. DC Zosyn started on Flagyl 500 every 8 hours.
[2018-03-14] MEDS ORDERED: METRONIDAZOLE 500 MG TABLET ONE (12:52)
[2018-03-14] MEDS: METRONIDAZOLE 500 MG TABLET PO SCH ×2 (13:01→22:07)
[2018-03-14] MEDS: SENNOSIDES/DOCUSATE 8.6-50 MG 1 EACH TABLET PO SCH (17:06)
[2018-03-14] MEDS: MELATONIN 3 MG TABLET PO SCH (20:13)
[2018-03-14] MEDS: ATORVASTATIN CALCIUM 40 MG TABLET PO SCH (20:13)
--- NOTE | 2018-03-14 23:28 | PDOC PROGRESS REPORT ---
Subjective Progress Note for:: 03/14/18 Subjective:: Patient remained confused but heart rate is better. Patient vital signs are noted to be stable. Patient denies any chest pain or other discomfort. He just answers directly to questions. Reason For Visit: SEPSIS Physical Exam Vital Signs: Temp Pulse Resp BP Pulse Ox 97.3 F 76 20 115/53 L 97 03/14/18 19:22 03/14/18 19:22 03/14/18 19:22 03/14/18 19:22 03/14/18 19:22 Intake & Output 03/13/18 03/14/18 03/15/18 06:59 06:59 06:59 Intake Total 2400 1820 820 Output Total 1440 1010 1000 Balance 960 810 -180 Weight 98.7 kg Exam: GENERAL: well-nourished and in no acute distress. Patient is alert but not oriented to place time or person. HEAD: Atraumatic, normocephalic. EYES: Pupils equal round and reactive to light, extraocular movements intact, sclera anicteric, conjunctiva are normal. ENT: TMs normal, nares patent, oropharynx clear without exudates. Moist mucous membranes. No oral ulcerations or bleeding gums noted NECK: supple without lymphadenopathy or JVD. Trachea is central. No cervical or axillary lymphadenopathy noted. Carotids are 2+ LUNGS: Breath sounds bibasilar fine crackles at bases. No significant dullness noted. CHEST: Palpation of chest wall shows no significant chest wall tenderness. HEART: [place] [employer], No PSH, 2/6 ARIANNE aortic area, 1/6 han systolic murmur mitral area, rubs or gallops. ABDOMEN: Soft, no significant tenderness appreciated, normoactive bowel sounds. No guarding, no rebound. No rigidity noted . No masses appreciated. EXTREMITIES: Pedal pulses are 1-2+, no calf tenderness noted, Trace + pedal edema noted. No clubbing or cyanosis. NEUROLOGICAL: Patient is alert but is not able to participate in neurological exam because of patient's current mental status PSYCH: Patient cannot participate in a neurologic and psych exam because of the patient's current mental status SKIN: No significant ecchymosis, rash, ulcerations or signs of pruritus noted. MUSCULOSKELETAL EXAM: No significant joint swelling noted. Results Laboratory Results: 03/14/18 04:11 03/14/18 04:41 03/14/18 03/14/18 04:11 04:41 WBC 13.3 H RBC 2.82 L Hgb 8.0 L Hct 24.6 L MCV 87 MCH 28.3 MCHC 32.5 RDW 17.4 H Plt Count 356 Seg Neutrophils % 69.5 Lymphocytes % 22.2 Monocytes % 6.4 Eosinophils % 1.4 Basophils % 0.5 Absolute Neutrophils 9.3 H Absolute Lymphocytes 3.0 Absolute Monocytes 0.8 Absolute Eosinophils 0.2 Absolute Basophils 0.1 Sodium 143.3 Potassium 3.5 L Chloride 108 H Carbon Dioxide 28 Anion Gap 7 BUN 12 Creatinine 1.10 Est GFR ( Amer) > 60 Est GFR (Non-Af Amer) > 60 Glucose 102 Calcium 8.3 L Magnesium 1.7 Total Bilirubin 0.2 AST 16 L ALT 33 Alkaline Phosphatase 108 Total Protein 5.4 L Albumin 2.2 L EKG Comments: Shows atrial fibrillation with controlled heart rate response. Impressions: Abdomen/Pelvis CT 03/03/18 00:00 IMPRESSION: NO SIGNIFICANT OR ACUTE PROCESS IN THE ABDOMEN OR PELVIS. Head CTA 03/03/18 09:57 IMPRESSION: NO CTA EVIDENCE OF STENOSIS OR ANEURYSM OF THE [place]. Neck CTA 03/03/18 09:57 IMPRESSION: NORMAL CTA OF THE EXTRA-CRANIAL CAROTID AND VERTEBRAL ARTERIES. Chest X-Ray 03/03/18 09:58 IMPRESSION: BORDERLINE CARDIOMEGALY. HAZY PULMONARY OPACITIES COULD REPRESENT EARLY PNEUMONIA OR DEVELOPING PULMONARY EDEMA. Head CT 03/06/18 00:00 IMPRESSION: Involutional changes of aging with microvascular ischemia. No acute imaging findings in the brain. EVIDENCE OF ACUTE STROKE: NO. Head MRI 03/06/18 00:00 IMPRESSION: 1. No acute intracranial abnormality. Suspect chronic changes including very mild small vessel disease and old right basal ganglia lacunar infarct. No suggestion of recent CVA. EVIDENCE OF ACUTE STROKE: NO. Cystogram 03/07/18 00:00 IMPRESSION: Left-sided vesicoureteral reflux. Bladder configuration suggests chronic urinary outflow obstruction versus neurogenic bladder. Yepez catheter balloon and tip are in good positioning in the urinary bladder Renal Ultrasound 03/07/18 00:00 IMPRESSION: 1. NORMAL RENAL ULTRASOUND. 2. YEPEZ CATHETER DESCRIBED. THE TIP OF THE CATHETER INDENTS THE BLADDER WALL AND ON SOME IMAGES THERE IS SUGGESTION THAT THE TIP MAY PENETRATE THE BLADDER WALL. THE CATHETER MAY NEED TO BE REPOSITIONED OR REPLACED. IF THERE IS SUSPICION THAT THE TIP HAS PENETRATED THE BLADDER WALL, THEN MAY CONSIDER A CYSTOGRAM TO DETERMINE IF THERE IS ANY INDICATION OF LEAKAGE FROM THE BLADDER. Assessment & Plan - Diagnosis (1) Bradycardia Is this a current diagnosis for this admission?: Yes (2) Atrial fibrillation Qualifiers: Atrial fibrillation type: chronic Qualified Code(s): I48.2 - Chronic atrial fibrillation (3) Acute on chronic renal failure Is this a current diagnosis for this admission?: Yes (4) Altered mental status Qualifiers: Altered mental status type: somnolence Qualified Code(s): R40.0 - Somnolence Is this a current diagnosis for this admission?: Yes (5) Aphasia Is this a current diagnosis for this admission?: Yes (6) SARA (obstructive sleep apnea) Is this a current diagnosis for this admission?: Yes - Notes Notes: HR better Bradycardia: Patient noted to be bradycardic but relatively asymptomatic, Improved. Had ordered a free T3 and free T4. Free T3 came back low. continue on Cytomel at 5 mcg per day. Initially patient was started on scopolamine and also theophylline. There has been some improvement in heart rate. This could be withdrawn slowly if needed. Atrial fibrillation: Chronic. Currently rate is on the low side. 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 Acute on chronic renal failure: Currently is stable. Altered mental status: Exact etiology not clear but could be dementia, could be other causes. Obstructive sleep apnea: Patient has a history of it. Untreated obstructive sleep apnea could actually cause bradycardia. - Time Time with patient: Greater than 35 minutes - More than 50% of the time spent coordinating care, discussing management plans with involved caregivers. Management plans discussed with involved personnels. Medical decision making was of moderate to high complexity, patient's has multiple comorbidities. Medications reviewed and adjusted accordingly: Yes
[2018-03-15] MEDS: DEXTROSE 5%-WATER 1000 ML 1,000 ML IV PRN ×2 (02:52→15:45)
[2018-03-15] MEDS: METRONIDAZOLE 500 MG TABLET PO SCH ×3 (05:31→21:37)
[2018-03-15] MEDS: LANSOPRAZOLE 30 MG TAB.RAP.DR PO SCH (05:31)
[2018-03-15] MEDS: FUROSEMIDE 20 MG TABLET PO SCH (08:28)
[2018-03-15] MEDS: DOCUSATE SODIUM 100 MG CAPSULE PO SCH (08:28)
[2018-03-15] MEDS ORDERED: LISINOPRIL 5 MG TABLET PO SCH (10:00)
[2018-03-15] MEDS: THEOPHYLLINE ANHYDROUS 100 MG TAB.SR.12H PO SCH ×2 (10:34→21:38)
[2018-03-15] MEDS: LACTOBACILLUS ACIDOPHILUS 250 MG TAB PO SCH ×2 (10:34→21:37)
[2018-03-15] MEDS: LIOTHYRONINE SODIUM 5 MCG TABLET PO SCH (10:37)
[2018-03-15] MEDS: HEPARIN SOD (PORCINE) 5,000 UNIT/ML 1 ML SYRINGE SUBCUT SCH ×2 (10:37→21:39)
[2018-03-15 11:33] LABS: ABSOLUTE EOSINOPHILS # (AUTO) 0.2 10^3/uL (0.0-0.6); ABSOLUTE LYMPHOCYTES (AUTO) 2.6 10^3/uL (0.5-4.7); ABSOLUTE MONOCYTES (AUTO) 0.8 10^3/uL (0.1-1.4); ABSOLUTE NEUT (AUTO) 6.6 10^3/uL (1.7-8.2); BASOPHILS % (AUTO) 0.2 % (0-2); EOSINOPHILS % (AUTO) 1.6 % (0-6); HEMATOCRIT 27.3 % (37.9-51.0); HEMOGLOBIN 9.1 g/dL (13.5-17.0); LYMPHOCYTES % (AUTO) 25.2 % (13-45); MEAN CORPUSCULAR HEMOGLOBIN 29.1 pg (27.0-33.4); MEAN CORPUSCULAR HGB CONC 33.2 g/dL (32.0-36.0); MEAN CORPUSCULAR VOLUME 88 fl (80-97); MONOCYTES % (AUTO) 7.8 % (3-13); RED BLOOD COUNT 3.11 10^6/uL (4.35-5.55); RED CELL DISTRIBUTION WIDTH 18.6 % (11.5-14.0); SEGMENTED NEUTROPHILS % (AUTO) 65.2 % (42-78); TOTAL CELLS COUNTED % (AUTO) 100 %; WHITE BLOOD COUNT 10.2 10^3/uL (4.0-10.5)
[2018-03-15 11:40] LABS: ANION GAP 5 (5-19); BLOOD UREA NITROGEN 10 mg/dL (7-20); CALCIUM 8.5 mg/dL (8.4-10.2); CARBON DIOXIDE 29 mmol/L (22-30); CHLORIDE 106 mmol/L (98-107); GLUCOSE 83 mg/dL (75-110); POTASSIUM 3.9 mmol/L (3.6-5.0); SODIUM 140.4 mmol/L (137-145)
[2018-03-15 12:13] LABS: PLATELET COUNT 442 10^3/uL (150-450)
--- NOTE | 2018-03-15 12:35 | PDOC PROGRESS REPORT ---
Subjective Progress Note for:: 03/15/18 Subjective:: 87-year-old male past medical history of chronic decubitus ulcer, obstructive uropathy presented to ED and septic shock due to catheter associated UTI. Patient has chronic indwelling catheter due to obstructive uropathy which was replaced on admission. Patient is alert today however still oriented 1. He cooperates with physical examination and communicates very well. He still has some loose bowel movements as per nurse however. C. difficile toxin was sent which came back positive however patient denies any abdominal pain, fever, chills, lower back pain, shortness of breath, chest pain. Reason For Visit: SEPSIS Physical Exam Vital Signs: Temp Pulse Resp BP Pulse Ox 97.4 F 50 L 16 108/60 98 03/15/18 08:25 03/15/18 08:25 03/15/18 08:25 03/15/18 08:25 03/15/18 08:25 Intake & Output 03/14/18 03/15/18 03/16/18 06:59 06:59 06:59 Intake Total 2820 930 Output Total 1010 2200 Balance 1810 -1270 General appearance: PRESENT: no acute distress, well-developed, well-nourished Head exam: PRESENT: atraumatic, normocephalic Eye exam: PRESENT: conjunctiva pink, EOMI, PERRLA. ABSENT: scleral icterus Ear exam: PRESENT: normal external ear exam Mouth exam: PRESENT: moist, tongue midline Neck exam: ABSENT: carotid bruit, JVD, lymphadenopathy, thyromegaly Respiratory exam: PRESENT: clear to auscultation arash. ABSENT: rales, rhonchi, wheezes Cardiovascular exam: PRESENT: RRR. ABSENT: diastolic murmur, rubs, systolic murmur Pulses: PRESENT: normal dorsalis pedis pul Vascular exam: PRESENT: normal capillary refill GI/Abdominal exam: PRESENT: normal bowel sounds, soft. ABSENT: distended, guarding, mass, organolmegaly, rebound, tenderness Rectal exam: PRESENT: deferred Extremities exam: PRESENT: full ROM. ABSENT: calf tenderness, clubbing, pedal edema Neurological exam: PRESENT: alert, awake, oriented to person, CN II-XII grossly intact. ABSENT: motor sensory deficit Psychiatric exam: PRESENT: appropriate affect, normal mood. ABSENT: homicidal ideation, suicidal ideation Skin exam: PRESENT: dry, intact, warm, other - Chronic decubitus ulcer about stage II no sign of active infection no tenderness no discharge.. ABSENT: cyanosis, rash Results Laboratory Results: 03/15/18 10:22 03/15/18 10:22 03/15/18 03/15/18 10:22 10:22 WBC 10.2 RBC 3.11 L Hgb 9.1 L Hct 27.3 L MCV 88 MCH 29.1 MCHC 33.2 RDW 18.6 H Plt Count 442 Seg Neutrophils % 65.2 Lymphocytes % 25.2 Monocytes % 7.8 Eosinophils % 1.6 Basophils % 0.2 Absolute Neutrophils 6.6 Absolute Lymphocytes 2.6 Absolute Monocytes 0.8 Absolute Eosinophils 0.2 Absolute Basophils 0.0 Sodium 140.4 Potassium 3.9 Chloride 106 Carbon Dioxide 29 Anion Gap 5 BUN 10 Creatinine 0.95 Est GFR ( Amer) > 60 Est GFR (Non-Af Amer) > 60 Glucose 83 Calcium 8.5 Impressions: Abdomen/Pelvis CT 03/03/18 00:00 IMPRESSION: NO SIGNIFICANT OR ACUTE PROCESS IN THE ABDOMEN OR PELVIS. Head CTA 03/03/18 09:57 IMPRESSION: NO CTA EVIDENCE OF STENOSIS OR ANEURYSM OF THE [place]. Neck CTA 03/03/18 09:57 IMPRESSION: NORMAL CTA OF THE EXTRA-CRANIAL CAROTID AND VERTEBRAL ARTERIES. Chest X-Ray 03/03/18 09:58 IMPRESSION: BORDERLINE CARDIOMEGALY. HAZY PULMONARY OPACITIES COULD REPRESENT EARLY PNEUMONIA OR DEVELOPING PULMONARY EDEMA. Head CT 03/06/18 00:00 IMPRESSION: Involutional changes of aging with microvascular ischemia. No acute imaging findings in the brain. EVIDENCE OF ACUTE STROKE: NO. Head MRI 03/06/18 00:00 IMPRESSION: 1. No acute intracranial abnormality. Suspect chronic changes including very mild small vessel disease and old right basal ganglia lacunar infarct. No suggestion of recent CVA. EVIDENCE OF ACUTE STROKE: NO. Cystogram 03/07/18 00:00 IMPRESSION: Left-sided vesicoureteral reflux. Bladder configuration suggests chronic urinary outflow obstruction versus neurogenic bladder. Yepez catheter balloon and tip are in good positioning in the urinary bladder Renal Ultrasound 03/07/18 00:00 IMPRESSION: 1. NORMAL RENAL ULTRASOUND. 2. YEPEZ CATHETER DESCRIBED. THE TIP OF THE CATHETER INDENTS THE BLADDER WALL AND ON SOME IMAGES THERE IS SUGGESTION THAT THE TIP MAY PENETRATE THE BLADDER WALL. THE CATHETER MAY NEED TO BE REPOSITIONED OR REPLACED. IF THERE IS SUSPICION THAT THE TIP HAS PENETRATED THE BLADDER WALL, THEN MAY CONSIDER A CYSTOGRAM TO DETERMINE IF THERE IS ANY INDICATION OF LEAKAGE FROM THE BLADDER. Assessment & Plan - Diagnosis (1) C. difficile diarrhea Is this a current diagnosis for this admission?: Yes Plan: White blood cells and creatinine back to baseline. Symptoms minimal. Continue Flagyl 500 every 8 hours. Will DC Zosyn patient has received 10/ days of Zosyn for his catheter associated UTI (2) UTI (urinary tract infection) Qualifiers: Urinary tract infection type: catheter-associated UTI Indwelling urinary catheter type: unspecified Encounter type: initial encounter Qualified Code( s): T83.511A - Infection and inflammatory reaction due to indwelling urethral catheter, initial encounter; N39.0 - Urinary tract infection, site not specified ; N39.0 - Urinary tract infection, site not specified Is this a current diagnosis for this admission?: Yes Plan: Catheter associated UTI. Culture positive for Pseudomonas and Proteus. The of Zosyn as per ID recommendation. Zosyn DC'd (3) Hypotension Qualifiers: Hypotension type: unspecified hypotension type Qualified Code(s): I95.9 - Hypotension, unspecified Is this a current diagnosis for this admission?: Yes Plan: Initially patient was hypotensive due to septic shock. Normotensive. Will hold antihypertensives. Restart lisinopril at 5 mg p.o. daily once clinically appropriate. (4) Acute on chronic renal failure Is this a current diagnosis for this admission?: Yes Plan: Creatinine within normal limits. Electrolytes within normal limits, normal renal ultrasound. Avoid nephrotoxic agents (5) BPH (benign prostatic hyperplasia) Qualifiers: Lower urinary tract symptom detail: urinary obstruction Is this a current diagnosis for this admission?: Yes Plan: Hold Flomax due to underlying hypotension. Restart once hypotension has improved (6) Decubitus skin ulcer Is this a current diagnosis for this admission?: Yes Plan: Sacral decubitus ulcer stage II. Culture grew MRSA. No active drainage or signs of infection. Vancomycin has since been discontinued. Continue daily wound dressing. (7) Anemia Qualifiers: Anemia type: unspecified type Qualified Code(s): D64.9 - Anemia, unspecified Is this a current diagnosis for this admission?: Yes Plan: Stable. Possibly due to underlying CKD and chronic disease. Patient is DNR. Daily CBC. (8) Hematuria Is this a current diagnosis for this admission?: Yes Plan: Resolved. No recurrence since Sunday. Initial US showed questionable penetration of catheter tip against bladder wall. A cystogram was pursued which did not show perforation or injury to the bladder wall. (9) Bradycardia Is this a current diagnosis for this admission?: Yes Plan: Improved since starting on the scopolamine and theophylline. (10) Hypothermia Qualifiers: Encounter type: subsequent encounter Qualified Code(s): T68.XXXD - Hypothermia, subsequent encounter Is this a current diagnosis for this admission?: Yes Plan: Resolved. Thyroid function and random cortisol level within normal limits. May have been caused by underlying C. difficile colitis. DC Zosyn started on Flagyl 500 every 8 hours.
[2018-03-15] MEDS: ATORVASTATIN CALCIUM 40 MG TABLET PO SCH (21:37)
[2018-03-15] MEDS: MELATONIN 3 MG TABLET PO SCH (21:38)
--- NOTE | 2018-03-15 23:10 | PDOC PROGRESS REPORT ---
Subjective Progress Note for:: 03/15/18 Subjective:: Patient remained confused but heart rate is better. Patient seems to be doing better with gradual improvement. Patient denying any fever chills. Patient denying any other significant discomfort. Patient is maintaining atrial fibrillation with mild intermittent bradycardia . Review of systems: Rest review of systems negative. Medications: Medications have been reviewed. Reason For Visit: SEPSIS Physical Exam Vital Signs: Temp Pulse Resp BP Pulse Ox 97.1 F 79 18 116/60 96 03/15/18 19:48 03/15/18 19:48 03/15/18 19:48 03/15/18 19:48 03/15/18 19:48 Intake & Output 03/14/18 03/15/18 03/16/18 06:59 06:59 06:59 Intake Total 2820 930 966 Output Total 1010 2200 1200 Balance 1810 -1270 -234 Exam: GENERAL: well-nourished and in no acute distress. Patient is alert but not oriented to place time, however seems oriented to person. HEAD: Atraumatic, normocephalic. EYES: Pupils equal round and reactive to light, extraocular movements intact, sclera anicteric, conjunctiva are normal. ENT: TMs normal, nares patent, oropharynx clear without exudates. Moist mucous membranes. No oral ulcerations or bleeding gums noted NECK: supple without lymphadenopathy or JVD. Trachea is central. No cervical or axillary lymphadenopathy noted. Carotids are 2+ LUNGS: Breath sounds bibasilar fine crackles at bases. No significant dullness noted. CHEST: Palpation of chest wall shows no significant chest wall tenderness. 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 ABDOMEN: Soft, no significant tenderness appreciated, normoactive bowel sounds. No guarding, no rebound. No rigidity noted . No masses appreciated. EXTREMITIES: Pedal pulses are 1-2+, no calf tenderness noted, Trace + pedal edema noted. No clubbing or cyanosis. NEUROLOGICAL: Patient is alert but is not able to participate in neurological exam. PSYCH: Patient cannot participate in a psych exam because of the patient's current mental status SKIN: No significant ecchymosis, rash, ulcerations or signs of pruritus noted. MUSCULOSKELETAL EXAM: No significant joint swelling noted. Results Laboratory Results: 03/15/18 10:22 03/15/18 10:22 03/15/18 03/15/18 10:22 10:22 WBC 10.2 RBC 3.11 L Hgb 9.1 L Hct 27.3 L MCV 88 MCH 29.1 MCHC 33.2 RDW 18.6 H Plt Count 442 Seg Neutrophils % 65.2 Lymphocytes % 25.2 Monocytes % 7.8 Eosinophils % 1.6 Basophils % 0.2 Absolute Neutrophils 6.6 Absolute Lymphocytes 2.6 Absolute Monocytes 0.8 Absolute Eosinophils 0.2 Absolute Basophils 0.0 Sodium 140.4 Potassium 3.9 Chloride 106 Carbon Dioxide 29 Anion Gap 5 BUN 10 Creatinine 0.95 Est GFR ( Amer) > 60 Est GFR (Non-Af Amer) > 60 Glucose 83 Calcium 8.5 Impressions: Abdomen/Pelvis CT 03/03/18 00:00 IMPRESSION: NO SIGNIFICANT OR ACUTE PROCESS IN THE ABDOMEN OR PELVIS. Head CTA 03/03/18 09:57 IMPRESSION: NO CTA EVIDENCE OF STENOSIS OR ANEURYSM OF THE [place]. Neck CTA 03/03/18 09:57 IMPRESSION: NORMAL CTA OF THE EXTRA-CRANIAL CAROTID AND VERTEBRAL ARTERIES. Chest X-Ray 03/03/18 09:58 IMPRESSION: BORDERLINE CARDIOMEGALY. HAZY PULMONARY OPACITIES COULD REPRESENT EARLY PNEUMONIA OR DEVELOPING PULMONARY EDEMA. Head CT 03/06/18 00:00 IMPRESSION: Involutional changes of aging with microvascular ischemia. No acute imaging findings in the brain. EVIDENCE OF ACUTE STROKE: NO. Head MRI 03/06/18 00:00 IMPRESSION: 1. No acute intracranial abnormality. Suspect chronic changes including very mild small vessel disease and old right basal ganglia lacunar infarct. No suggestion of recent CVA. EVIDENCE OF ACUTE STROKE: NO. Cystogram 03/07/18 00:00 IMPRESSION: Left-sided vesicoureteral reflux. Bladder configuration suggests chronic urinary outflow obstruction versus neurogenic bladder. Yepez catheter balloon and tip are in good positioning in the urinary bladder Renal Ultrasound 03/07/18 00:00 IMPRESSION: 1. NORMAL RENAL ULTRASOUND. 2. YEPEZ CATHETER DESCRIBED. THE TIP OF THE CATHETER INDENTS THE BLADDER WALL AND ON SOME IMAGES THERE IS SUGGESTION THAT THE TIP MAY PENETRATE THE BLADDER WALL. THE CATHETER MAY NEED TO BE REPOSITIONED OR REPLACED. IF THERE IS SUSPICION THAT THE TIP HAS PENETRATED THE BLADDER WALL, THEN MAY CONSIDER A CYSTOGRAM TO DETERMINE IF THERE IS ANY INDICATION OF LEAKAGE FROM THE BLADDER. Assessment & Plan - Diagnosis (1) Bradycardia Is this a current diagnosis for this admission?: Yes (2) Atrial fibrillation Qualifiers: Atrial fibrillation type: chronic Qualified Code(s): I48.2 - Chronic atrial fibrillation (3) Acute on chronic renal failure Is this a current diagnosis for this admission?: Yes (4) Altered mental status Qualifiers: Altered mental status type: somnolence Qualified Code(s): R40.0 - Somnolence Is this a current diagnosis for this admission?: Yes (5) Aphasia Is this a current diagnosis for this admission?: Yes (6) SARA (obstructive sleep apnea) Is this a current diagnosis for this admission?: Yes - Notes Notes: Bradycardia: Patient noted to be bradycardic but relatively asymptomatic, Improved. Continue on Cytomel at 5 mcg per day. Continue with scopolamine patch and also theophylline at low dose. Atrial fibrillation: Chronic. Currently rate is on the low side. We will leave decision regarding chronic anticoagulation to the civil engineering professor. this is primarily because of dementia and also tendency to fall. Acute on chronic renal failure: Currently is stable. Altered mental status: Exact etiology not clear but could be dementia, could be other causes. Obstructive sleep apnea: Patient has a history of it. Untreated obstructive sleep apnea could actually cause bradycardia. - Time Time with patient: 15-25 minutes - More than 50% of the time spent coordinating care, discussing management plans with involved caregivers. Management plans discussed with involved personnels. Medical decision making was of moderate to high complexity, patient's has multiple comorbidities. Medications reviewed and adjusted accordingly: Yes
[2018-03-16] MEDS: DEXTROSE 5%-WATER 1000 ML 1,000 ML IV PRN ×2 (05:44→18:31)
[2018-03-16] MEDS: LANSOPRAZOLE 30 MG TAB.RAP.DR PO SCH (05:44)
[2018-03-16] MEDS: METRONIDAZOLE 500 MG TABLET PO SCH ×3 (05:44→23:20)
[2018-03-16 07:09] LABS: ABSOLUTE BASOPHILS # (AUTO) 0.1 10^3/uL (0.0-0.2); ABSOLUTE EOSINOPHILS # (AUTO) 0.2 10^3/uL (0.0-0.6); ABSOLUTE LYMPHOCYTES (AUTO) 2.5 10^3/uL (0.5-4.7); ABSOLUTE MONOCYTES (AUTO) 0.9 10^3/uL (0.1-1.4); ABSOLUTE NEUT (AUTO) 6.1 10^3/uL (1.7-8.2); BASOPHILS % (AUTO) 1.1 % (0-2); EOSINOPHILS % (AUTO) 1.6 % (0-6); HEMATOCRIT 24.9 % (37.9-51.0); HEMOGLOBIN 8.3 g/dL (13.5-17.0); LYMPHOCYTES % (AUTO) 25.3 % (13-45); MEAN CORPUSCULAR HGB CONC 33.3 g/dL (32.0-36.0); MEAN CORPUSCULAR VOLUME 87 fl (80-97); MONOCYTES % (AUTO) 9.3 % (3-13); PLATELET COUNT 455 10^3/uL (150-450); RED BLOOD COUNT 2.86 10^6/uL (4.35-5.55); RED CELL DISTRIBUTION WIDTH 17.8 % (11.5-14.0); SEGMENTED NEUTROPHILS % (AUTO) 62.7 % (42-78); TOTAL CELLS COUNTED % (AUTO) 100 %; WHITE BLOOD COUNT 9.8 10^3/uL (4.0-10.5)
[2018-03-16 07:36] LABS: ALANINE AMINOTRANSFERASE 29 U/L (21-72); ALBUMIN 2.3 g/dL (3.5-5.0); ALKALINE PHOSPHATASE 107 U/L (38-126); ANION GAP 9 (5-19); ASPARTATE AMINO TRANSFERASE 21 U/L (17-59); BILIRUBIN,DIRECT 0.3 mg/dL (0.0-0.4); BILIRUBIN,TOTAL 0.3 mg/dL (0.2-1.3); BLOOD UREA NITROGEN 8 mg/dL (7-20); CALCIUM 8.2 mg/dL (8.4-10.2); CARBON DIOXIDE 27 mmol/L (22-30); CHLORIDE 103 mmol/L (98-107); GLUCOSE 88 mg/dL (75-110); POTASSIUM 3.1 mmol/L (3.6-5.0); TOTAL PROTEIN 5.7 g/dL (6.3-8.2)
[2018-03-16] MEDS: HEPARIN SOD (PORCINE) 5,000 UNIT/ML 1 ML SYRINGE SUBCUT SCH ×2 (10:01→23:23)
[2018-03-16] MEDS: THEOPHYLLINE ANHYDROUS 100 MG TAB.SR.12H PO SCH ×2 (10:01→23:19)
[2018-03-16] MEDS: LACTOBACILLUS ACIDOPHILUS 250 MG TAB PO SCH ×2 (10:01→23:23)
[2018-03-16] MEDS: LIOTHYRONINE SODIUM 5 MCG TABLET PO SCH (10:02)
[2018-03-16] MEDS ORDERED: POTASSIUM CHLORIDE 20 MEQ/15 ML UDCUP PO ONE (10:15)
[2018-03-16 12:10] LABS: ANION GAP 9 (5-19); BLOOD UREA NITROGEN 8 mg/dL (7-20); CALCIUM 8.1 mg/dL (8.4-10.2); CARBON DIOXIDE 28 mmol/L (22-30); CHLORIDE 102 mmol/L (98-107); GLUCOSE 100 mg/dL (75-110); POTASSIUM 3.1 mmol/L (3.6-5.0); SODIUM 139.4 mmol/L (137-145)
[2018-03-16] MEDS: SCOPOLAMINE HYDROBROMIDE 1.5 MG PATCH.TD72 TD SCH (12:16)
--- NOTE | 2018-03-16 16:25 | PDOC PROGRESS REPORT ---
Subjective Progress Note for:: 03/16/18 Subjective:: 87-year-old male past medical history of chronic decubitus ulcer, obstructive uropathy presented to ED and septic shock due to catheter associated UTI. Patient has chronic indwelling catheter due to obstructive uropathy which was replaced on admission. Patient is alert today however still oriented 2. He cooperates with physical examination and communicates very well. Diarrhea resolved. Denies any abdominal pain, fever, chills, lower back pain, shortness of breath, chest pain. Reason For Visit: SEPSIS Physical Exam Vital Signs: Temp Pulse Resp BP Pulse Ox 97.6 F 64 19 143/90 H 96 03/16/18 16:00 03/16/18 16:00 03/16/18 16:00 03/16/18 16:00 03/16/18 16:00 Intake & Output 03/15/18 03/16/18 03/17/18 06:59 06:59 06:59 Intake Total 930 1966 Output Total 2200 3550 Balance -1270 -1584 Weight 99.2 kg General appearance: PRESENT: no acute distress, well-developed, well-nourished Head exam: PRESENT: atraumatic, normocephalic Eye exam: PRESENT: conjunctiva pink, EOMI, PERRLA. ABSENT: scleral icterus Ear exam: PRESENT: normal external ear exam Mouth exam: PRESENT: moist, tongue midline Neck exam: ABSENT: carotid bruit, JVD, lymphadenopathy, thyromegaly Respiratory exam: PRESENT: clear to auscultation arash. ABSENT: rales, rhonchi, wheezes Cardiovascular exam: PRESENT: RRR. ABSENT: diastolic murmur, rubs, systolic murmur Pulses: PRESENT: normal dorsalis pedis pul Vascular exam: PRESENT: normal capillary refill GI/Abdominal exam: PRESENT: normal bowel sounds, soft. ABSENT: distended, guarding, mass, organolmegaly, rebound, tenderness Rectal exam: PRESENT: deferred Extremities exam: PRESENT: full ROM. ABSENT: calf tenderness, clubbing, pedal edema Neurological exam: PRESENT: alert, awake, oriented to person, oriented to place , oriented to time, oriented to situation, CN II-XII grossly intact. ABSENT: motor sensory deficit Psychiatric exam: PRESENT: appropriate affect, normal mood. ABSENT: homicidal ideation, suicidal ideation Skin exam: PRESENT: dry, warm, other - Chronic decubitus ulcer in the lumbar region body stage II healing no active infection or erythema.. ABSENT: cyanosis , rash Results Laboratory Results: 03/16/18 06:34 03/16/18 11:15 03/16/1818 03/16/18 06:34 06:34 11:15 WBC 9.8 RBC 2.86 L Hgb 8.3 L Hct 24.9 L MCV 87 MCH 29.0 MCHC 33.3 RDW 17.8 H Plt Count 455 H Seg Neutrophils % 62.7 Lymphocytes % 25.3 Monocytes % 9.3 Eosinophils % 1.6 Basophils % 1.1 Absolute Neutrophils 6.1 Absolute Lymphocytes 2.5 Absolute Monocytes 0.9 Absolute Eosinophils 0.2 Absolute Basophils 0.1 Sodium 139.0 139.4 Potassium 3.1 L 3.1 L Chloride 103 102 Carbon Dioxide 27 28 Anion Gap 9 9 BUN 8 8 Creatinine 0.92 0.88 Est GFR ( Amer) > 60 > 60 Est GFR (Non-Af Amer) > 60 > 60 Glucose 88 100 Calcium 8.2 L 8.1 L Total Bilirubin 0.3 AST 21 ALT 29 Alkaline Phosphatase 107 Total Protein 5.7 L Albumin 2.3 L Impressions: Abdomen/Pelvis CT 03/03/18 00:00 IMPRESSION: NO SIGNIFICANT OR ACUTE PROCESS IN THE ABDOMEN OR PELVIS. Head CTA 03/03/18 09:57 IMPRESSION: NO CTA EVIDENCE OF STENOSIS OR ANEURYSM OF THE [place] OF [place]. Neck CTA 03/03/18 09:57 IMPRESSION: NORMAL CTA OF THE EXTRA-CRANIAL CAROTID AND VERTEBRAL ARTERIES. Chest X-Ray 03/03/18 09:58 IMPRESSION: BORDERLINE CARDIOMEGALY. HAZY PULMONARY OPACITIES COULD REPRESENT EARLY PNEUMONIA OR DEVELOPING PULMONARY EDEMA. Head CT 03/06/18 00:00 IMPRESSION: Involutional changes of aging with microvascular ischemia. No acute imaging findings in the brain. EVIDENCE OF ACUTE STROKE: NO. Head MRI 03/06/18 00:00 IMPRESSION: 1. No acute intracranial abnormality. Suspect chronic changes including very mild small vessel disease and old right basal ganglia lacunar infarct. No suggestion of recent CVA. EVIDENCE OF ACUTE STROKE: NO. Cystogram 03/07/18 00:00 IMPRESSION: Left-sided vesicoureteral reflux. Bladder configuration suggests chronic urinary outflow obstruction versus neurogenic bladder. Yepez catheter balloon and tip are in good positioning in the urinary bladder Renal Ultrasound 03/07/18 00:00 IMPRESSION: 1. NORMAL RENAL ULTRASOUND. 2. YEPEZ CATHETER DESCRIBED. THE TIP OF THE CATHETER INDENTS THE BLADDER WALL AND ON SOME IMAGES THERE IS SUGGESTION THAT THE TIP MAY PENETRATE THE BLADDER WALL. THE CATHETER MAY NEED TO BE REPOSITIONED OR REPLACED. IF THERE IS SUSPICION THAT THE TIP HAS PENETRATED THE BLADDER WALL, THEN MAY CONSIDER A CYSTOGRAM TO DETERMINE IF THERE IS ANY INDICATION OF LEAKAGE FROM THE BLADDER. Assessment & Plan - Diagnosis (1) C. difficile diarrhea Is this a current diagnosis for this admission?: Yes Plan: White blood cells and creatinine back to baseline. Diarrhea resolved. Continue Flagyl 500 every 8 hours for 2 weeks. Will DC Zosyn patient has received 10/10 days of Zosyn for his catheter associated UTI (2) UTI (urinary tract infection) Qualifiers: Urinary tract infection type: catheter-associated UTI Indwelling urinary catheter type: unspecified Encounter type: initial encounter Qualified Code( s): T83.511A - Infection and inflammatory reaction due to indwelling urethral catheter, initial encounter; N39.0 - Urinary tract infection, site not specified ; N39.0 - Urinary tract infection, site not specified Is this a current diagnosis for this admission?: Yes (3) Hypotension Qualifiers: Hypotension type: unspecified hypotension type Qualified Code(s): I95.9 - Hypotension, unspecified Is this a current diagnosis for this admission?: Yes Plan: Initially patient was hypotensive due to septic shock. Normotensive. Will hold antihypertensives. Restart lisinopril at 5 mg p.o. daily once clinically appropriate. (4) Acute on chronic renal failure Is this a current diagnosis for this admission?: Yes Plan: Creatinine within normal limits. Potassium replaced. Other electrolytes within normal limits. normal renal ultrasound. Avoid nephrotoxic agents (5) BPH (benign prostatic hyperplasia) Qualifiers: Lower urinary tract symptom detail: urinary obstruction Is this a current diagnosis for this admission?: Yes Plan: Hold Flomax due to underlying hypotension. Restart once hypotension has improved (6) Decubitus skin ulcer Is this a current diagnosis for this admission?: Yes Plan: Sacral decubitus ulcer stage II. Culture grew MRSA. No active drainage or signs of infection. Vancomycin has since been discontinued. Continue daily wound dressing. (7) Anemia Qualifiers: Anemia type: unspecified type Qualified Code(s): D64.9 - Anemia, unspecified Is this a current diagnosis for this admission?: Yes Plan: Stable. Possibly due to underlying CKD and chronic disease. Patient is DNR. Daily CBC. (8) Hematuria Is this a current diagnosis for this admission?: Yes Plan: Resolved. No recurrence since Sunday. Initial US showed questionable penetration of catheter tip against bladder wall. A cystogram was pursued which did not show perforation or injury to the bladder wall. (9) Bradycardia Is this a current diagnosis for this admission?: Yes Plan: Improved since starting on the scopolamine and theophylline. (10) Hypokalemia Is this a current diagnosis for this admission?: Yes Plan: Replaced. Will start on daily potassium replacement.
[2018-03-16] MEDS: MELATONIN 3 MG TABLET PO SCH (23:20)
[2018-03-16] MEDS: ATORVASTATIN CALCIUM 40 MG TABLET PO SCH (23:23)
[2018-03-17] MEDS: LANSOPRAZOLE 30 MG TAB.RAP.DR PO SCH (05:37)
[2018-03-17] MEDS: METRONIDAZOLE 500 MG TABLET PO SCH ×3 (05:37→22:48)
[2018-03-17] MEDS: HEPARIN SOD (PORCINE) 5,000 UNIT/ML 1 ML SYRINGE SUBCUT SCH ×2 (09:22→22:45)
[2018-03-17] MEDS: THEOPHYLLINE ANHYDROUS 100 MG TAB.SR.12H PO SCH ×2 (09:23→22:46)
[2018-03-17] MEDS: POTASSIUM CHLORIDE 20 MEQ/15 ML UDCUP PO SCH (09:23)
[2018-03-17] MEDS: LACTOBACILLUS ACIDOPHILUS 250 MG TAB PO SCH ×2 (09:24→22:46)
[2018-03-17] MEDS: LIOTHYRONINE SODIUM 5 MCG TABLET PO SCH (09:24)
[2018-03-17] MEDS ORDERED: POTASSIUM CHLORIDE 10 MEQ CAPSULE.ER PO SCH (10:00)
[2018-03-17 10:14] LABS: ABSOLUTE BASOPHILS # (AUTO) 0.1 10^3/uL (0.0-0.2); ABSOLUTE EOSINOPHILS # (AUTO) 0.1 10^3/uL (0.0-0.6); ABSOLUTE LYMPHOCYTES (AUTO) 2.1 10^3/uL (0.5-4.7); ABSOLUTE MONOCYTES (AUTO) 0.9 10^3/uL (0.1-1.4); ABSOLUTE NEUT (AUTO) 6.9 10^3/uL (1.7-8.2); BASOPHILS % (AUTO) 0.9 % (0-2); EOSINOPHILS % (AUTO) 1.1 % (0-6); HEMATOCRIT 22.8 % (37.9-51.0); LYMPHOCYTES % (AUTO) 21.1 % (13-45); MEAN CORPUSCULAR HEMOGLOBIN 29.8 pg (27.0-33.4); MEAN CORPUSCULAR HGB CONC 33.6 g/dL (32.0-36.0); MEAN CORPUSCULAR VOLUME 89 fl (80-97); MONOCYTES % (AUTO) 8.8 % (3-13); PLATELET COUNT 481 10^3/uL (150-450); RED BLOOD COUNT 2.57 10^6/uL (4.35-5.55); RED CELL DISTRIBUTION WIDTH 18.9 % (11.5-14.0); SEGMENTED NEUTROPHILS % (AUTO) 68.1 % (42-78); TOTAL CELLS COUNTED % (AUTO) 100 %; WHITE BLOOD COUNT 10.2 10^3/uL (4.0-10.5)
[2018-03-17 10:16] LABS: HEMOGLOBIN 7.7 g/dL (13.5-17.0)
[2018-03-17 10:36] LABS: ANION GAP 8 (5-19); BLOOD UREA NITROGEN 8 mg/dL (7-20); CALCIUM 8.6 mg/dL (8.4-10.2); CARBON DIOXIDE 28 mmol/L (22-30); CHLORIDE 102 mmol/L (98-107); GLUCOSE 96 mg/dL (75-110); POTASSIUM 3.6 mmol/L (3.6-5.0); SODIUM 138.4 mmol/L (137-145)
--- NOTE | 2018-03-17 12:34 | PDOC PROGRESS REPORT ---
Subjective Subjective:: 87-year-old male past medical history of chronic decubitus ulcer, obstructive uropathy presented to ED and septic shock due to catheter associated UTI. Patient has chronic indwelling catheter due to obstructive uropathy which was replaced on admission. Patient is alert today however still oriented 2. 2 episodes of nonbloody diarrhea last night. He cooperates with physical examination and communicates very well. Diarrhea resolved. Denies any abdominal pain, fever, chills, lower back pain, shortness of breath, chest pain. Reason For Visit: SEPSIS Physical Exam Vital Signs: Temp Pulse Resp BP Pulse Ox 98.7 F 75 19 116/74 98 03/17/18 12:00 03/17/18 12:00 03/17/18 12:00 03/17/18 12:00 03/17/18 12:00 Intake & Output 03/16/18 03/17/18 03/18/18 06:59 06:59 06:59 Intake Total 1966 1199 Output Total 3550 2150 Balance -1584 -951 Weight 99.2 kg 100.1 kg Results Laboratory Results: 03/17/18 09:11 03/17/18 09:11 03/17/18 03/17/18 09:11 09:11 WBC 10.2 RBC 2.57 L Hgb 7.7 L Hct 22.8 L MCV 89 MCH 29.8 MCHC 33.6 RDW 18.9 H Plt Count 481 H Seg Neutrophils % 68.1 Lymphocytes % 21.1 Monocytes % 8.8 Eosinophils % 1.1 Basophils % 0.9 Absolute Neutrophils 6.9 Absolute Lymphocytes 2.1 Absolute Monocytes 0.9 Absolute Eosinophils 0.1 Absolute Basophils 0.1 Sodium 138.4 Potassium 3.6 Chloride 102 Carbon Dioxide 28 Anion Gap 8 BUN 8 Creatinine 0.93 Est GFR ( Amer) > 60 Est GFR (Non-Af Amer) > 60 Glucose 96 Calcium 8.6 Impressions: Abdomen/Pelvis CT 03/03/18 00:00 IMPRESSION: NO SIGNIFICANT OR ACUTE PROCESS IN THE ABDOMEN OR PELVIS. Head CTA 03/03/18 09:57 IMPRESSION: NO CTA EVIDENCE OF STENOSIS OR ANEURYSM OF THE [place] OF [place]. Neck CTA 03/03/18 09:57 IMPRESSION: NORMAL CTA OF THE EXTRA-CRANIAL CAROTID AND VERTEBRAL ARTERIES. Chest X-Ray 03/03/18 09:58 IMPRESSION: BORDERLINE CARDIOMEGALY. HAZY PULMONARY OPACITIES COULD REPRESENT EARLY PNEUMONIA OR DEVELOPING PULMONARY EDEMA. Head CT 03/06/18 00:00 IMPRESSION: Involutional changes of aging with microvascular ischemia. No acute imaging findings in the brain. EVIDENCE OF ACUTE STROKE: NO. Head MRI 03/06/18 00:00 IMPRESSION: 1. No acute intracranial abnormality. Suspect chronic changes including very mild small vessel disease and old right basal ganglia lacunar infarct. No suggestion of recent CVA. EVIDENCE OF ACUTE STROKE: NO. Cystogram 03/07/18 00:00 IMPRESSION: Left-sided vesicoureteral reflux. Bladder configuration suggests chronic urinary outflow obstruction versus neurogenic bladder. Yepez catheter balloon and tip are in good positioning in the urinary bladder Renal Ultrasound 03/07/18 00:00 IMPRESSION: 1. NORMAL RENAL ULTRASOUND. 2. EYPEZ CATHETER DESCRIBED. THE TIP OF THE CATHETER INDENTS THE BLADDER WALL AND ON SOME IMAGES THERE IS SUGGESTION THAT THE TIP MAY PENETRATE THE BLADDER WALL. THE CATHETER MAY NEED TO BE REPOSITIONED OR REPLACED. IF THERE IS SUSPICION THAT THE TIP HAS PENETRATED THE BLADDER WALL, THEN MAY CONSIDER A CYSTOGRAM TO DETERMINE IF THERE IS ANY INDICATION OF LEAKAGE FROM THE BLADDER. Assessment & Plan - Diagnosis (1) C. difficile diarrhea Is this a current diagnosis for this admission?: Yes Plan: White blood cells and creatinine back to baseline. 2 episodes of diarrhea last night. Continue Flagyl 500 every 8 hours for 2 weeks. Will DC Zosyn patient has received 10/10 days of Zosyn for his catheter associated UTI (2) UTI (urinary tract infection) Qualifiers: Urinary tract infection type: catheter-associated UTI Indwelling urinary catheter type: unspecified Encounter type: initial encounter Qualified Code( s): T83.511A - Infection and inflammatory reaction due to indwelling urethral catheter, initial encounter; N39.0 - Urinary tract infection, site not specified ; N39.0 - Urinary tract infection, site not specified Is this a current diagnosis for this admission?: Yes Plan: Catheter associated UTI. Culture positive for Pseudomonas and Proteus. The of Zosyn as per ID recommendation. Zosyn DC'd (3) Hypotension Qualifiers: Hypotension type: unspecified hypotension type Qualified Code(s): I95.9 - Hypotension, unspecified Is this a current diagnosis for this admission?: Yes Plan: Resolved. Hold antihypertensive medications. Restart when clinically appropriate. (4) Acute on chronic renal failure Is this a current diagnosis for this admission?: Yes Plan: Creatinine within normal limits. Potassium replaced. Other electrolytes within normal limits. normal renal ultrasound. Avoid nephrotoxic agents (5) BPH (benign prostatic hyperplasia) Qualifiers: Lower urinary tract symptom detail: urinary obstruction Is this a current diagnosis for this admission?: Yes Plan: Hold Flomax due to underlying hypotension. Restart once hypotension has improved (6) Decubitus skin ulcer Is this a current diagnosis for this admission?: Yes Plan: Sacral decubitus ulcer stage II. Culture grew MRSA. No active drainage or signs of infection. Vancomycin has since been discontinued. Continue daily wound dressing. (7) Anemia Qualifiers: Anemia type: unspecified type Qualified Code(s): D64.9 - Anemia, unspecified Is this a current diagnosis for this admission?: Yes Plan: Karlo 7.8 today. Transfuse 1 PRBC. Possibly due to underlying CKD and chronic disease. Patient is DNR. Daily CBC. (8) Hematuria Is this a current diagnosis for this admission?: Yes Plan: Resolved. No recurrence since Sunday. Initial US showed questionable penetration of catheter tip against bladder wall. A cystogram was pursued which did not show perforation or injury to the bladder wall. (9) Bradycardia Is this a current diagnosis for this admission?: Yes Plan: Improved since starting on the scopolamine and theophylline. (10) Hypokalemia Is this a current diagnosis for this admission?: Yes Plan: Resolved. Continue daily K p.o. 20 mEq
[2018-03-17] MEDS: DEXTROSE 5%-WATER 1000 ML 1,000 ML IV PRN (17:40)
[2018-03-17] MEDS: MELATONIN 3 MG TABLET PO SCH (19:55)
[2018-03-17] MEDS: ATORVASTATIN CALCIUM 40 MG TABLET PO SCH (19:55)
--- NOTE | 2018-03-17 20:09 | PDOC PROGRESS REPORT ---
Subjective Progress Note for:: 03/17/18 Subjective:: Patient remained confused but heart rate is better. Patient did not get to be in any other discomfort. He actually looks quite comfortable without any symptoms to suggest syncope or near syncope. Telemetry strips reviewed showed atrial fibrillation with controlled heart rate response. Reason For Visit: SEPSIS Physical Exam Vital Signs: Temp Pulse Resp BP Pulse Ox 97.4 F 82 18 133/81 H 98 03/17/18 18:25 03/17/18 18:25 03/17/18 18:25 03/17/18 18:25 03/17/18 18:25 Intake & Output 03/16/18 03/17/18 03/18/18 06:59 06:59 06:59 Intake Total 1966 1199 1780 Output Total 3550 2150 550 Balance -1584 -951 1230 Weight 99.2 kg 100.1 kg Exam: GENERAL: well-nourished and in no acute distress. Patient is alert but not oriented to place time, however seems oriented to person. HEAD: Atraumatic, normocephalic. EYES: Pupils equal round and reactive to light, extraocular movements intact, sclera anicteric, conjunctiva are normal. ENT: TMs normal, nares patent, oropharynx clear without exudates. Moist mucous membranes. No oral ulcerations or bleeding gums noted NECK: supple without lymphadenopathy or JVD. Trachea is central. No cervical or axillary lymphadenopathy noted. Carotids are 2+ LUNGS: Breath sounds bibasilar fine crackles at bases. No significant dullness noted. CHEST: Palpation of chest wall shows no significant chest wall tenderness. HEART: [place] [employer], No PSH, 2/6 ARIANNE aortic area, 1/6 han systolic murmur mitral area, rubs or gallops. ABDOMEN: Soft, no significant tenderness appreciated, normoactive bowel sounds. No guarding, no rebound. No rigidity noted . No masses appreciated. EXTREMITIES: Pedal pulses are 1-2+, no calf tenderness noted, Trace + pedal edema noted. No clubbing or cyanosis. NEUROLOGICAL: Patient is alert but is not able to participate in neurological exam. PSYCH: Patient cannot participate in a psych exam because of the patient's current mental status SKIN: No significant ecchymosis, rash, ulcerations or signs of pruritus noted. MUSCULOSKELETAL EXAM: No significant joint swelling noted Results Laboratory Results: 03/17/18 09:11 03/17/18 09:11 03/17/18 03/17/18 03/17/18 09:11 09:11 12:10 WBC 10.2 RBC 2.57 L Hgb 7.7 L Hct 22.8 L MCV 89 MCH 29.8 MCHC 33.6 RDW 18.9 H Plt Count 481 H Seg Neutrophils % 68.1 Lymphocytes % 21.1 Monocytes % 8.8 Eosinophils % 1.1 Basophils % 0.9 Absolute Neutrophils 6.9 Absolute Lymphocytes 2.1 Absolute Monocytes 0.9 Absolute Eosinophils 0.1 Absolute Basophils 0.1 Sodium 138.4 Potassium 3.6 Chloride 102 Carbon Dioxide 28 Anion Gap 8 BUN 8 Creatinine 0.93 Est GFR ( Amer) > 60 Est GFR (Non-Af Amer) > 60 Glucose 96 Calcium 8.6 Blood Type O POSITIVE Antibody Screen NEGATIVE EKG Comments: Atrial fibrillation with controlled heart rate response Impressions: Abdomen/Pelvis CT 03/03/18 00:00 IMPRESSION: NO SIGNIFICANT OR ACUTE PROCESS IN THE ABDOMEN OR PELVIS. Head CTA 03/03/18 09:57 IMPRESSION: NO CTA EVIDENCE OF STENOSIS OR ANEURYSM OF THE [place]. Neck CTA 03/03/18 09:57 IMPRESSION: NORMAL CTA OF THE EXTRA-CRANIAL CAROTID AND VERTEBRAL ARTERIES. Chest X-Ray 03/03/18 09:58 IMPRESSION: BORDERLINE CARDIOMEGALY. HAZY PULMONARY OPACITIES COULD REPRESENT EARLY PNEUMONIA OR DEVELOPING PULMONARY EDEMA. Head CT 03/06/18 00:00 IMPRESSION: Involutional changes of aging with microvascular ischemia. No acute imaging findings in the brain. EVIDENCE OF ACUTE STROKE: NO. Head MRI 03/06/18 00:00 IMPRESSION: 1. No acute intracranial abnormality. Suspect chronic changes including very mild small vessel disease and old right basal ganglia lacunar infarct. No suggestion of recent CVA. EVIDENCE OF ACUTE STROKE: NO. Cystogram 03/07/18 00:00 IMPRESSION: Left-sided vesicoureteral reflux. Bladder configuration suggests chronic urinary outflow obstruction versus neurogenic bladder. Yepez catheter balloon and tip are in good positioning in the urinary bladder Renal Ultrasound 03/07/18 00:00 IMPRESSION: 1. NORMAL RENAL ULTRASOUND. 2. YEPEZ CATHETER DESCRIBED. THE TIP OF THE CATHETER INDENTS THE BLADDER WALL AND ON SOME IMAGES THERE IS SUGGESTION THAT THE TIP MAY PENETRATE THE BLADDER WALL. THE CATHETER MAY NEED TO BE REPOSITIONED OR REPLACED. IF THERE IS SUSPICION THAT THE TIP HAS PENETRATED THE BLADDER WALL, THEN MAY CONSIDER A CYSTOGRAM TO DETERMINE IF THERE IS ANY INDICATION OF LEAKAGE FROM THE BLADDER. Assessment & Plan - Diagnosis (1) Bradycardia Is this a current diagnosis for this admission?: Yes (2) Atrial fibrillation Qualifiers: Atrial fibrillation type: chronic Qualified Code(s): I48.2 - Chronic atrial fibrillation (3) Acute on chronic renal failure Is this a current diagnosis for this admission?: Yes (4) Altered mental status Qualifiers: Altered mental status type: somnolence Qualified Code(s): R40.0 - Somnolence Is this a current diagnosis for this admission?: Yes (5) Aphasia Is this a current diagnosis for this admission?: Yes (6) SARA (obstructive sleep apnea) Is this a current diagnosis for this admission?: Yes - Notes Notes: Heart rate has been stable for last several days. Bradycardia: Patient noted to be bradycardic but relatively asymptomatic, Improved. Continue on Cytomel at 5 mcg per day. May consider to withdraw scopolamine and/or theophylline gradually. Atrial fibrillation: Chronic. Currently rate is well controlled. We will leave decision regarding chronic anticoagulation to the commercial litigation associate. this is primarily because of dementia and also tendency to fall. Acute on chronic renal failure: Currently is stable. Altered mental status: Exact etiology not clear but could be dementia, could be other causes. Obstructive sleep apnea: Patient has a history of it. Untreated obstructive sleep apnea could actually cause bradycardia. - Time Time with patient: 15-25 minutes - More than 50% of the time spent coordinating care, discussing management plans with involved caregivers. Management plans discussed with involved personnels. Medical decision making was of moderate to high complexity, patient's has multiple comorbidities. Medications reviewed and adjusted accordingly: Yes
[2018-03-17 21:01] LABS: ABSOLUTE BASOPHILS # (AUTO) 0.1 10^3/uL (0.0-0.2); ABSOLUTE EOSINOPHILS # (AUTO) 0.1 10^3/uL (0.0-0.6); ABSOLUTE LYMPHOCYTES (AUTO) 2.2 10^3/uL (0.5-4.7); ABSOLUTE MONOCYTES (AUTO) 1.1 10^3/uL (0.1-1.4); ABSOLUTE NEUT (AUTO) 7.7 10^3/uL (1.7-8.2); BASOPHILS % (AUTO) 1.2 % (0-2); EOSINOPHILS % (AUTO) 0.9 % (0-6); LYMPHOCYTES % (AUTO) 19.8 % (13-45); MEAN CORPUSCULAR HEMOGLOBIN 29.3 pg (27.0-33.4); MEAN CORPUSCULAR HGB CONC 33.4 g/dL (32.0-36.0); MEAN CORPUSCULAR VOLUME 88 fl (80-97); MONOCYTES % (AUTO) 9.3 % (3-13); PLATELET COUNT 520 10^3/uL (150-450); RED BLOOD COUNT 3.43 10^6/uL (4.35-5.55); RED CELL DISTRIBUTION WIDTH 17.9 % (11.5-14.0); SEGMENTED NEUTROPHILS % (AUTO) 68.8 % (42-78); TOTAL CELLS COUNTED % (AUTO) 100 %; WHITE BLOOD COUNT 11.3 10^3/uL (4.0-10.5)
[2018-03-18] MEDS: LANSOPRAZOLE 30 MG TAB.RAP.DR PO SCH (06:08)
[2018-03-18] MEDS: METRONIDAZOLE 500 MG TABLET PO SCH ×3 (06:08→22:42)
[2018-03-18] MEDS: HEPARIN SOD (PORCINE) 5,000 UNIT/ML 1 ML SYRINGE SUBCUT SCH ×2 (10:59→22:42)
[2018-03-18] MEDS: LACTOBACILLUS ACIDOPHILUS 250 MG TAB PO SCH ×2 (11:02→22:41)
[2018-03-18] MEDS: POTASSIUM CHLORIDE 20 MEQ/15 ML UDCUP PO SCH (11:02)
[2018-03-18] MEDS: LIOTHYRONINE SODIUM 5 MCG TABLET PO SCH (11:02)
[2018-03-18] MEDS: THEOPHYLLINE ANHYDROUS 100 MG TAB.SR.12H PO SCH ×2 (11:02→22:42)
[2018-03-18 14:50] LABS: ABSOLUTE BASOPHILS # (AUTO) 0.1 10^3/uL (0.0-0.2); ABSOLUTE EOSINOPHILS # (AUTO) 0.1 10^3/uL (0.0-0.6); ABSOLUTE LYMPHOCYTES (AUTO) 1.7 10^3/uL (0.5-4.7); ABSOLUTE NEUT (AUTO) 7.1 10^3/uL (1.7-8.2); BASOPHILS % (AUTO) 0.5 % (0-2); HEMATOCRIT 29.9 % (37.9-51.0); HEMOGLOBIN 9.8 g/dL (13.5-17.0); LYMPHOCYTES % (AUTO) 17.1 % (13-45); MEAN CORPUSCULAR HGB CONC 32.9 g/dL (32.0-36.0); MEAN CORPUSCULAR VOLUME 88 fl (80-97); MONOCYTES % (AUTO) 9.9 % (3-13); PLATELET COUNT 496 10^3/uL (150-450); RED BLOOD COUNT 3.39 10^6/uL (4.35-5.55); RED CELL DISTRIBUTION WIDTH 18.5 % (11.5-14.0); SEGMENTED NEUTROPHILS % (AUTO) 71.5 % (42-78); TOTAL CELLS COUNTED % (AUTO) 100 %; WHITE BLOOD COUNT 9.9 10^3/uL (4.0-10.5)
[2018-03-18 15:10] LABS: ALANINE AMINOTRANSFERASE 29 U/L (21-72); ALBUMIN 2.5 g/dL (3.5-5.0); ALKALINE PHOSPHATASE 131 U/L (38-126); ANION GAP 5 (5-19); ASPARTATE AMINO TRANSFERASE 42 U/L (17-59); BILIRUBIN,DIRECT 0.3 mg/dL (0.0-0.4); BILIRUBIN,TOTAL 0.4 mg/dL (0.2-1.3); BLOOD UREA NITROGEN 11 mg/dL (7-20); CALCIUM 8.7 mg/dL (8.4-10.2); CARBON DIOXIDE 31 mmol/L (22-30); CHLORIDE 105 mmol/L (98-107); GLUCOSE 144 mg/dL (75-110); POTASSIUM 3.2 mmol/L (3.6-5.0); SODIUM 140.7 mmol/L (137-145); TOTAL PROTEIN 6.1 g/dL (6.3-8.2)
[2018-03-18] MEDS ORDERED: POTASSIUM CHLORIDE 10 MEQ CAPSULE.ER PO ONE (17:00)
[2018-03-18] MEDS: ATORVASTATIN CALCIUM 40 MG TABLET PO SCH (22:41)
[2018-03-18] MEDS: MELATONIN 3 MG TABLET PO SCH (22:41)
--- NOTE | 2018-03-18 22:54 | EKG REPORT ---
SEVERITY:- ABNORMAL ECG - ATRIAL FIBRILLATION BORDERLINE R WAVE PROGRESSION, ANTERIOR LEADS : Confirmed by: Maki Olivier 18-Mar-2018 22:54:36
[2018-03-19] MEDS: METRONIDAZOLE 500 MG TABLET PO SCH ×3 (05:45→23:27)
[2018-03-19] MEDS: LANSOPRAZOLE 30 MG TAB.RAP.DR PO SCH (05:47)
[2018-03-19 06:01] LABS: ABSOLUTE BASOPHILS # (AUTO) 0.1 10^3/uL (0.0-0.2); ABSOLUTE EOSINOPHILS # (AUTO) 0.1 10^3/uL (0.0-0.6); ABSOLUTE LYMPHOCYTES (AUTO) 1.8 10^3/uL (0.5-4.7); ABSOLUTE MONOCYTES (AUTO) 1.3 10^3/uL (0.1-1.4); ABSOLUTE NEUT (AUTO) 8.3 10^3/uL (1.7-8.2); BASOPHILS % (AUTO) 0.7 % (0-2); EOSINOPHILS % (AUTO) 0.8 % (0-6); HEMATOCRIT 29.5 % (37.9-51.0); HEMOGLOBIN 9.7 g/dL (13.5-17.0); LYMPHOCYTES % (AUTO) 15.7 % (13-45); MEAN CORPUSCULAR HEMOGLOBIN 29.5 pg (27.0-33.4); MEAN CORPUSCULAR VOLUME 89 fl (80-97); MONOCYTES % (AUTO) 10.8 % (3-13); PLATELET COUNT 427 10^3/uL (150-450); RED CELL DISTRIBUTION WIDTH 19.2 % (11.5-14.0); TOTAL CELLS COUNTED % (AUTO) 100 %; WHITE BLOOD COUNT 11.6 10^3/uL (4.0-10.5)
[2018-03-19 06:27] LABS: ALANINE AMINOTRANSFERASE 31 U/L (21-72); ALBUMIN 2.4 g/dL (3.5-5.0); ALKALINE PHOSPHATASE 126 U/L (38-126); ANION GAP 8 (5-19); ASPARTATE AMINO TRANSFERASE 38 U/L (17-59); BILIRUBIN,DIRECT 0.2 mg/dL (0.0-0.4); BILIRUBIN,TOTAL 0.2 mg/dL (0.2-1.3); BLOOD UREA NITROGEN 12 mg/dL (7-20); CALCIUM 8.9 mg/dL (8.4-10.2); CARBON DIOXIDE 29 mmol/L (22-30); CHLORIDE 107 mmol/L (98-107); GLUCOSE 96 mg/dL (75-110); POTASSIUM 3.9 mmol/L (3.6-5.0); SODIUM 143.9 mmol/L (137-145); TOTAL PROTEIN 5.9 g/dL (6.3-8.2)
[2018-03-19] MEDS: POTASSIUM CHLORIDE 20 MEQ/15 ML UDCUP PO SCH (10:12)
[2018-03-19] MEDS: LIOTHYRONINE SODIUM 5 MCG TABLET PO SCH (10:12)
[2018-03-19] MEDS: THEOPHYLLINE ANHYDROUS 100 MG TAB.SR.12H PO SCH (10:12)
[2018-03-19] MEDS: LACTOBACILLUS ACIDOPHILUS 250 MG TAB PO SCH ×2 (10:12→23:27)
[2018-03-19] MEDS: HEPARIN SOD (PORCINE) 5,000 UNIT/ML 1 ML SYRINGE SUBCUT SCH ×2 (10:13→23:27)
[2018-03-19] MEDS: SCOPOLAMINE HYDROBROMIDE 1.5 MG PATCH.TD72 TD SCH (13:54)
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
[2018-03-19] MEDS: MELATONIN 3 MG TABLET PO SCH (23:27)
[2018-03-19] MEDS: ATORVASTATIN CALCIUM 40 MG TABLET PO SCH (23:27)
[2018-03-20] MEDS: METRONIDAZOLE 500 MG TABLET PO SCH ×3 (06:26→21:46)
[2018-03-20] MEDS: LANSOPRAZOLE 30 MG TAB.RAP.DR PO SCH (06:28)
[2018-03-20] MEDS: POTASSIUM CHLORIDE 20 MEQ/15 ML UDCUP PO SCH (09:16)
[2018-03-20] MEDS: LACTOBACILLUS ACIDOPHILUS 250 MG TAB PO SCH ×2 (09:16→21:42)
[2018-03-20] MEDS: HEPARIN SOD (PORCINE) 5,000 UNIT/ML 1 ML SYRINGE SUBCUT SCH ×2 (09:17→21:46)
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
[2018-03-20] MEDS: ATORVASTATIN CALCIUM 40 MG TABLET PO SCH (21:42)
[2018-03-20] MEDS: MELATONIN 3 MG TABLET PO SCH (21:47)
[2018-03-20 22:47] LABS: APPEARANCE,URINE TURBID; BILIRUBIN,URINE NEGATIVE (NEGATIVE); GLUCOSE, URINE NEGATIVE (NEGATIVE); KETONES,URINE NEGATIVE (NEGATIVE); LEUKOCYTE ESTERASE,URINE LARGE (NEGATIVE); NITRITE,URINE POSITIVE (NEGATIVE); PROTEIN,URINE 100 mg/dL (NEGATIVE); URINE SPECIFIC GRAVITY 1.013; UROBILINOGEN,URINE NEGATIVE mg/dL (<2.0)
[2018-03-20 22:48] LABS: COLOR,URINE YELLOW
[2018-03-21] MEDS: LANSOPRAZOLE 30 MG TAB.RAP.DR PO SCH (06:13)
[2018-03-21] MEDS: METRONIDAZOLE 500 MG TABLET PO SCH (06:16)
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
[2018-03-21] MEDS: LACTOBACILLUS ACIDOPHILUS 250 MG TAB PO SCH ×2 (11:36→22:00)
[2018-03-21] MEDS: POTASSIUM CHLORIDE 20 MEQ/15 ML UDCUP PO SCH (11:36)
[2018-03-21] MEDS: HEPARIN SOD (PORCINE) 5,000 UNIT/ML 1 ML SYRINGE SUBCUT SCH ×2 (11:36→22:00)
[2018-03-21] MEDS: NYSTATIN TOPICAL POWDER 15 GM TP SCH (21:42)
[2018-03-21] MEDS: COLLAGENASE CLOSTRIDIUM HIST. OINT 30 GM TP SCH (21:43)
[2018-03-21] MEDS: NORMAL SALINE 1000 ML 1,000 ML IV PRN (21:59)
[2018-03-21] MEDS: MELATONIN 3 MG TABLET PO SCH (22:00)
[2018-03-21] MEDS: ATORVASTATIN CALCIUM 40 MG TABLET PO SCH (22:00)
[2018-03-22] MEDS: LANSOPRAZOLE 30 MG TAB.RAP.DR PO SCH (07:20)
[2018-03-22] MEDS: LACTOBACILLUS ACIDOPHILUS 250 MG TAB PO SCH ×2 (10:37→22:19)
[2018-03-22] MEDS: POTASSIUM CHLORIDE 20 MEQ/15 ML UDCUP PO SCH (10:37)
[2018-03-22] MEDS: HEPARIN SOD (PORCINE) 5,000 UNIT/ML 1 ML SYRINGE SUBCUT SCH ×2 (10:37→22:19)
[2018-03-22] MEDS: COLLAGENASE CLOSTRIDIUM HIST. OINT 30 GM TP SCH (10:39)
[2018-03-22] MEDS: NYSTATIN TOPICAL POWDER 15 GM TP SCH ×3 (10:40→17:44)
--- NOTE | 2018-03-22 11:27 | PDOC PROGRESS REPORT ---
Subjective Progress Note for:: 03/18/18 Subjective:: Patient remained confused but heart rate is better. HR on EKG is 65. Patient noted to have no other significant complaints. Reason For Visit: SEPSIS Physical Exam Vital Signs: Temp Pulse Resp BP Pulse Ox 97.1 F 80 19 118/59 L 96 03/18/18 20:10 03/18/18 20:10 03/18/18 20:10 03/18/18 20:10 03/18/18 20:10 Intake & Output 03/17/18 03/18/18 03/19/18 06:59 06:59 06:59 Intake Total 1199 1780 1000 Output Total 2150 960 425 Balance -951 820 575 Weight 100.1 kg 90.3 kg Exam: GENERAL: well-nourished and in no acute distress. Patient is alert but not oriented to place time, however seems oriented to person. HEAD: Atraumatic, normocephalic. EYES: Pupils equal round and reactive to light, extraocular movements intact, sclera anicteric, conjunctiva are normal. ENT: TMs normal, nares patent, oropharynx clear without exudates. Moist mucous membranes. No oral ulcerations or bleeding gums noted NECK: supple without lymphadenopathy or JVD. Trachea is central. No cervical or axillary lymphadenopathy noted. Carotids are 2+ LUNGS: Breath sounds bibasilar fine crackles at bases. No significant dullness noted. CHEST: Palpation of chest wall shows no significant chest wall tenderness. 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 ABDOMEN: Soft, no significant tenderness appreciated, normoactive bowel sounds. No guarding, no rebound. No rigidity noted . No masses appreciated. EXTREMITIES: Pedal pulses are 1-2+, no calf tenderness noted, Trace + pedal edema noted. No clubbing or cyanosis. NEUROLOGICAL: Patient is alert but is not able to participate in neurological exam. PSYCH: Patient cannot participate in a psych exam because of the patient's current mental status SKIN: No significant ecchymosis, rash, ulcerations or signs of pruritus noted. MUSCULOSKELETAL EXAM: No significant joint swelling noted Results Laboratory Results: 03/18/18 14:34 03/18/18 14:34 03/18/18 03/18/18 14:34 14:34 WBC 9.9 RBC 3.39 L Hgb 9.8 L Hct 29.9 L MCV 88 MCH 29.0 MCHC 32.9 RDW 18.5 H Plt Count 496 H Seg Neutrophils % 71.5 Lymphocytes % 17.1 Monocytes % 9.9 Eosinophils % 1.0 Basophils % 0.5 Absolute Neutrophils 7.1 Absolute Lymphocytes 1.7 Absolute Monocytes 1.0 Absolute Eosinophils 0.1 Absolute Basophils 0.1 Sodium 140.7 Potassium 3.2 L Chloride 105 Carbon Dioxide 31 H Anion Gap 5 BUN 11 Creatinine 0.89 Est GFR ( Amer) > 60 Est GFR (Non-Af Amer) > 60 Glucose 144 H Calcium 8.7 Total Bilirubin 0.4 AST 42 ALT 29 Alkaline Phosphatase 131 H Total Protein 6.1 L Albumin 2.5 L EKG Comments: Twelve-lead EKG obtained this morning shows atrial fibrillation with controlled heart rate response at 65 bpm Impressions: Abdomen/Pelvis CT 03/03/18 00:00 IMPRESSION: NO SIGNIFICANT OR ACUTE PROCESS IN THE ABDOMEN OR PELVIS. Head CTA 03/03/18 09:57 IMPRESSION: NO CTA EVIDENCE OF STENOSIS OR ANEURYSM OF THE [place]. Neck CTA 03/03/18 09:57 IMPRESSION: NORMAL CTA OF THE EXTRA-CRANIAL CAROTID AND VERTEBRAL ARTERIES. Chest X-Ray 03/03/18 09:58 IMPRESSION: BORDERLINE CARDIOMEGALY. HAZY PULMONARY OPACITIES COULD REPRESENT EARLY PNEUMONIA OR DEVELOPING PULMONARY EDEMA. Head CT 03/06/18 00:00 IMPRESSION: Involutional changes of aging with microvascular ischemia. No acute imaging findings in the brain. EVIDENCE OF ACUTE STROKE: NO. Head MRI 03/06/18 00:00 IMPRESSION: 1. No acute intracranial abnormality. Suspect chronic changes including very mild small vessel disease and old right basal ganglia lacunar infarct. No suggestion of recent CVA. EVIDENCE OF ACUTE STROKE: NO. Cystogram 03/07/18 00:00 IMPRESSION: Left-sided vesicoureteral reflux. Bladder configuration suggests chronic urinary outflow obstruction versus neurogenic bladder. Yepez catheter balloon and tip are in good positioning in the urinary bladder Renal Ultrasound 03/07/18 00:00 IMPRESSION: 1. NORMAL RENAL ULTRASOUND. 2. YEPEZ CATHETER DESCRIBED. THE TIP OF THE CATHETER INDENTS THE BLADDER WALL AND ON SOME IMAGES THERE IS SUGGESTION THAT THE TIP MAY PENETRATE THE BLADDER WALL. THE CATHETER MAY NEED TO BE REPOSITIONED OR REPLACED. IF THERE IS SUSPICION THAT THE TIP HAS PENETRATED THE BLADDER WALL, THEN MAY CONSIDER A CYSTOGRAM TO DETERMINE IF THERE IS ANY INDICATION OF LEAKAGE FROM THE BLADDER. Assessment & Plan - Diagnosis (1) Bradycardia Is this a current diagnosis for this admission?: Yes (2) Atrial fibrillation Qualifiers: Atrial fibrillation type: chronic Qualified Code(s): I48.2 - Chronic atrial fibrillation (3) Acute on chronic renal failure Is this a current diagnosis for this admission?: Yes (4) Altered mental status Qualifiers: Altered mental status type: somnolence Qualified Code(s): R40.0 - Somnolence Is this a current diagnosis for this admission?: Yes (5) Aphasia Is this a current diagnosis for this admission?: Yes (6) SARA (obstructive sleep apnea) Is this a current diagnosis for this admission?: Yes - Notes Notes: Bradycardia: This has resolved. Discussed with hospitalist will sign off. Atrial fibrillation: Chronic. Currently rate is on the low side. We will leave decision regarding chronic anticoagulation to the clay temperer. this is primarily because of dementia and also tendency to fall. Acute on chronic renal failure: Currently is stable. Altered mental status: Exact etiology not clear but could be dementia, could be other causes. Obstructive sleep apnea: Patient has a history of it. Untreated obstructive sleep apnea could actually cause bradycardia. However patient felt not a candidate for such a therapy. - Time Time with patient: 15-25 minutes - More than 50% of the time spent coordinating care, discussing management plans with involved caregivers. Management plans discussed with involved personnels. Medical decision making was of moderate to high complexity, patient's has multiple comorbidities. Will sign off please reconsult if needed Medications reviewed and adjusted accordingly: Yes
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
[2018-03-22] MEDS ORDERED: VANCOMYCIN HCL 0 MG in DEXTROSE 5%-WATER 250 ML IV NR (12:30)
[2018-03-22 13:16] LABS: ABSOLUTE BASOPHILS # (AUTO) 0.1 10^3/uL (0.0-0.2); ABSOLUTE EOSINOPHILS # (AUTO) 0.1 10^3/uL (0.0-0.6); ABSOLUTE LYMPHOCYTES (AUTO) 1.4 10^3/uL (0.5-4.7); ABSOLUTE MONOCYTES (AUTO) 0.7 10^3/uL (0.1-1.4); ABSOLUTE NEUT (AUTO) 6.1 10^3/uL (1.7-8.2); BASOPHILS % (AUTO) 0.6 % (0-2); EOSINOPHILS % (AUTO) 1.1 % (0-6); HEMATOCRIT 30.8 % (37.9-51.0); HEMOGLOBIN 10.1 g/dL (13.5-17.0); LYMPHOCYTES % (AUTO) 17.4 % (13-45); MEAN CORPUSCULAR HGB CONC 32.7 g/dL (32.0-36.0); MEAN CORPUSCULAR VOLUME 92 fl (80-97); PLATELET COUNT 330 10^3/uL (150-450); RED BLOOD COUNT 3.35 10^6/uL (4.35-5.55); RED CELL DISTRIBUTION WIDTH 19.8 % (11.5-14.0); SEGMENTED NEUTROPHILS % (AUTO) 72.9 % (42-78); TOTAL CELLS COUNTED % (AUTO) 100 %; WHITE BLOOD COUNT 8.3 10^3/uL (4.0-10.5)
[2018-03-22 13:29] LABS: BLOOD UREA NITROGEN 17 mg/dL (7-20); CALCIUM 8.7 mg/dL (8.4-10.2); CARBON DIOXIDE 30 mmol/L (22-30); CHLORIDE 104 mmol/L (98-107); GLUCOSE 155 mg/dL (75-110); POTASSIUM 5.1 mmol/L (3.6-5.0)
[2018-03-22 13:34] LABS: SODIUM 136.8 mmol/L (137-145)
[2018-03-22 13:40] LABS: ANION GAP 3 (5-19)
[2018-03-22] MEDS: VANCOMYCIN HCL 750 MG in DEXTROSE 5%-WATER 250 ML IV SCH (13:42)
--- NOTE | 2018-03-22 14:05 | PDOC CONSULTATION ---
Consultation Consult Date: 03/22/18 Consult reason:: sacral decubitus History of Present Illness Admission Date/PCP: 03/03/18 13:04 NINA ADAMES DO Patient complains of: no pains History of Present Illness: JOVAN PUENTE is a 87 year old male initially admitted for pyelonephritis then C Diff noted today to have sacral decubitus. Has superficial skin breakdown and dark discoloration . Past Medical History Cardiac Medical History: Reports: Hyperlipidema, Hypertension Denies: Atrial Fibrillation, Congestive Heart Failure, Coronary Artery Disease, DVT, Myocardial Infarction, Peripheral Vascular Disease, Pulmonary Embolism, Heart Murmur Endocrine Medical History: Denies: Diabetes Mellitus Type 1, Diabetes Mellitus Type 2, Hyperthyroidism, Hypothyroidism Malignancy Medical History: Denies: Bone Cancer, Brain Cancer, Breast Cancer, Cervical Cancer, Colorectal Cancer, Leukemia, Liver Cancer, Lung Cancer, Lymphoma, Ovarian Cancer , Pancreatic Cancer, Renal (Kidney) Cancer, Skin Cancer GI Medical History: Denies: Cirrhosis, Crohn's Disease, Diverticulitis, Gastroesophageal Reflux Disease, Hepatitis, Hiatal Hernia, Ulcerative Colitis Musculoskeltal Medical History: Reports: Arthritis Skin Medical History: Denies: Eczema, Psoriasis Psychiatric Medical History: Denies: Attention Deficit Hyperactivity Disorder, Bipolar Disorder, Dementia , Depression, Personality Disorder, Post Traumatic Stress Disorder, Schizoaffective Disorder Hematology: Reports: Anemia Infectious Medical History: Denies: Clostridium Difficile, HIV, Methicillin-Resistant Staph Aureus, Vancomycin-Resistant Enterococci Past Surgical History Past Surgical History: Reports: Appendectomy Social History Lives with: Residential Smoking Status: Former Smoker Hx Recreational Drug Use: No Hx Prescription Drug Abuse: No - Advance Directive Resuscitation Status: Do Not Resuscitate Family History Family History: Hypertension Parental Family History Reviewed: Yes Children Family History Reviewed: No Sibling(s) Family History Reviewed.: No Medication/Allergy Home Medications: Acidoph/L.bulg/Bif.b/S.thermop [Bacid Caplet] 1 tab PO Q12 03/03/18 Aspirin [Ecotrin 81 mg EC Tablet] 81 mg PO QAM 03/03/18 Atorvastatin Calcium [Lipitor 40 mg Tablet] 40 mg PO DAILY@199903/03/18 Cholecalciferol (Vitamin D3) [Vitamin D3 1000 Unit Tablet] 1,000 unit PO QAM Docusate Calcium [Manny-Tin] 240 mg PO QAM 03/03/18 Furosemide [Lasix 20 mg Tablet] 20 mg PO QAM 03/03/18 Glycerin [Adult Glycerin] 1 supp DC DAILYP PRN 03/03/18 Ipratropium/Albuterol Sulfate [Iprat-Albut 0.5-3(2.5) mg/3 ml] 3 ml NEB Q12 Ipratropium/Albuterol Sulfate [Iprat-Albut 0.5-3(2.5) mg/3 ml] 3 ml NEB Q4HP PRN 03/03/18 Lidocaine [Lidoderm 5% (700 mg) Transdermal Patch] 2 patch TOP DAILY 03/03/18 Lisinopril [Prinivil 40 mg Tablet] 40 mg PO QAM 03/03/18 Melatonin [Melatonin 3 mg Tablet] 3 mg PO DAILY@199903/03/18 Multivitamin [Tab-A-Allen (Multiple Vitamin) Tablet] 1 tab PO QAM 03/03/18 Nifedipine [Procardia XL 60 mg Tablet] 60 mg PO QAM 03/03/18 Polyethylene Glycol 3350 [Miralax Powder 17 gm/Packet] 17 gm PO QAM 03/03/18 Sennosides [Senna Lax] 8.6 mg PO QPM 03/03/18 Tamsulosin HCl [Flomax 0.4 mg Cap.sr] 0.4 mg PO QPM 03/03/18 Temazepam [Restoril 15 mg Capsule] 15 mg PO QHS 03/03/18 Tolterodine Tartrate [Tolterodine Tartrate ER] 4 mg PO QAM 03/03/18 Tramadol HCl [Ultram 50 mg Tablet] 50 mg PO Q6HP PRN 03/03/18 Allergies/Adverse Reactions: No Known Allergies Allergy (Unverified 08/20/17 17:35) Review of Systems All systems: reviewed and no additional remarkable complaints except as stated - no pains sacral area but apparently having frequent BM with soft stools Constitutional: ABSENT: chills, fever(s), headache(s), weight gain, weight loss Eyes: ABSENT: visual disturbances Ears: ABSENT: hearing changes Cardiovascular: ABSENT: chest pain, dyspnea on exertion, edema, orthropnea, palpitations Respiratory: ABSENT: cough, hemoptysis Gastrointestinal: ABSENT: abdominal pain, constipation, diarrhea, hematemesis, hematochezia, nausea, vomiting Genitourinary: ABSENT: dysuria, hematuria Musculoskeletal: ABSENT: joint swelling Integumentary: ABSENT: rash, wounds Neurological: ABSENT: abnormal gait, abnormal speech, confusion, dizziness, focal weakness, syncope Psychiatric: ABSENT: anxiety, depression, homidical ideation, suicidal ideation Endocrine: ABSENT: cold intolerance, heat intolerance, polydipsia, polyuria Hematologic/Lymphatic: ABSENT: easy bleeding, easy bruising Physical Exam Vital Signs: Temp Pulse Resp BP Pulse Ox 98.4 F 101 H 16 108/71 94 03/22/18 12:00 03/22/18 12:00 03/22/18 12:00 03/22/18 12:00 03/22/18 12:00 Intake & Output 03/21/18 03/22/18 03/23/18 06:59 06:59 06:59 Intake Total 320 1581 Output Total 700 750 Balance -380 831 Weight 92.2 kg General appearance: PRESENT: no acute distress Head exam: PRESENT: atraumatic Eye exam: PRESENT: conjunctiva pink Mouth exam: PRESENT: moist Neck exam: PRESENT: full ROM Cardiovascular exam: PRESENT: RRR Pulses: PRESENT: normal radial pulses Vascular exam: PRESENT: normal capillary refill GI/Abdominal exam: PRESENT: soft Rectal exam: PRESENT: other - reddish discoloration with patchy areas of supeficial skin breakdown mostly left sacral area. Has a darkdiscoloration of skin in the midpart of discolored area about 2 inches in diameter non tender without fluctuation. Results Laboratory Results: 03/22/18 12:55 03/22/18 12:55 03/22/18 03/22/18 12:55 12:55 WBC 8.3 RBC 3.35 L Hgb 10.1 L Hct 30.8 L MCV 92 MCH 30.0 MCHC 32.7 RDW 19.8 H Plt Count 330 Seg Neutrophils % 72.9 Lymphocytes % 17.4 Monocytes % 8.0 Eosinophils % 1.1 Basophils % 0.6 Absolute Neutrophils 6.1 Absolute Lymphocytes 1.4 Absolute Monocytes 0.7 Absolute Eosinophils 0.1 Absolute Basophils 0.1 Sodium 136.8 L Potassium 5.1 H Chloride 104 Carbon Dioxide 30 Anion Gap 3 L BUN 17 Creatinine 0.77 Est GFR ( Amer) > 60 Est GFR (Non-Af Amer) > 60 Glucose 155 H Calcium 8.7 Impressions: Abdomen/Pelvis CT 03/03/18 00:00 IMPRESSION: NO SIGNIFICANT OR ACUTE PROCESS IN THE ABDOMEN OR PELVIS. Head CTA 03/03/18 09:57 IMPRESSION: NO CTA EVIDENCE OF STENOSIS OR ANEURYSM OF THE [place]. Neck CTA 03/03/18 09:57 IMPRESSION: NORMAL CTA OF THE EXTRA-CRANIAL CAROTID AND VERTEBRAL ARTERIES. Chest X-Ray 03/03/18 09:58 IMPRESSION: BORDERLINE CARDIOMEGALY. HAZY PULMONARY OPACITIES COULD REPRESENT EARLY PNEUMONIA OR DEVELOPING PULMONARY EDEMA. Head CT 03/06/18 00:00 IMPRESSION: Involutional changes of aging with microvascular ischemia. No acute imaging findings in the brain. EVIDENCE OF ACUTE STROKE: NO. Head MRI 03/06/18 00:00 IMPRESSION: 1. No acute intracranial abnormality. Suspect chronic changes including very mild small vessel disease and old right basal ganglia lacunar infarct. No suggestion of recent CVA. EVIDENCE OF ACUTE STROKE: NO. Cystogram 03/07/18 00:00 IMPRESSION: Left-sided vesicoureteral reflux. Bladder configuration suggests chronic urinary outflow obstruction versus neurogenic bladder. Yepez catheter balloon and tip are in good positioning in the urinary bladder Renal Ultrasound 03/07/18 00:00 IMPRESSION: 1. NORMAL RENAL ULTRASOUND. 2. YEPEZ CATHETER DESCRIBED. THE TIP OF THE CATHETER INDENTS THE BLADDER WALL AND ON SOME IMAGES THERE IS SUGGESTION THAT THE TIP MAY PENETRATE THE BLADDER WALL. THE CATHETER MAY NEED TO BE REPOSITIONED OR REPLACED. IF THERE IS SUSPICION THAT THE TIP HAS PENETRATED THE BLADDER WALL, THEN MAY CONSIDER A CYSTOGRAM TO DETERMINE IF THERE IS ANY INDICATION OF LEAKAGE FROM THE BLADDER. Assessment & Plan - Diagnosis (1) sacral decubitus unstageable at this rhina Is this a current diagnosis for this admission?: Yes - Time Time Spent: 30 to 50 Minutes - Plan Summary Plan Summary: No definite indication for debridement right now. Try Allevyn dressings for now and avoid pressure OK to hold Xantyl chemical debridement right now
[2018-03-22] MEDS: ATORVASTATIN CALCIUM 40 MG TABLET PO SCH (22:20)
[2018-03-22] MEDS: MELATONIN 3 MG TABLET PO SCH (22:33)
[2018-03-23] MEDS: VANCOMYCIN HCL 750 MG in DEXTROSE 5%-WATER 250 ML IV SCH ×2 (02:36→14:17)
[2018-03-23] MEDS: LANSOPRAZOLE 30 MG TAB.RAP.DR PO SCH (06:35)
[2018-03-23] MEDS: POTASSIUM CHLORIDE 20 MEQ/15 ML UDCUP PO SCH (09:51)
[2018-03-23] MEDS: NYSTATIN TOPICAL POWDER 15 GM TP SCH ×3 (09:52→17:22)
[2018-03-23] MEDS: LACTOBACILLUS ACIDOPHILUS 250 MG TAB PO SCH ×2 (09:52→21:35)
[2018-03-23] MEDS: HEPARIN SOD (PORCINE) 5,000 UNIT/ML 1 ML SYRINGE SUBCUT SCH ×2 (09:52→21:34)
[2018-03-23] MEDS: METRONIDAZOLE 500 MG/NS RTU 500 MG/100 ML RTUPB IV SCH (10:08)
[2018-03-23] MEDS: PIPERACILLIN SODIUM/TAZOBACTAM 3.375 GM in NORMAL SALINE 100 ML IV SCH (10:08)
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
[2018-03-23] MEDS: ATORVASTATIN CALCIUM 40 MG TABLET PO SCH (21:35)
[2018-03-23] MEDS: MELATONIN 3 MG TABLET PO SCH (21:35)
[2018-03-23] MEDS: ACETAMINOPHEN 325 MG TABLET PO PRN (22:10)
[2018-03-24] MEDS: VANCOMYCIN HCL 750 MG in DEXTROSE 5%-WATER 250 ML IV SCH ×2 (03:38→14:43)
[2018-03-24] MEDS: NORMAL SALINE 1000 ML 1,000 ML IV PRN (03:38)
[2018-03-24 06:10] LABS: BLOOD UREA NITROGEN 19 mg/dL (7-20); CALCIUM 8.9 mg/dL (8.4-10.2); GLUCOSE 116 mg/dL (75-110); POTASSIUM 4.3 mmol/L (3.6-5.0)
[2018-03-24 06:16] LABS: CARBON DIOXIDE 31 mmol/L (22-30); CHLORIDE 103 mmol/L (98-107); SODIUM 138.1 mmol/L (137-145)
[2018-03-24] MEDS: LANSOPRAZOLE 30 MG TAB.RAP.DR PO SCH (06:16)
[2018-03-24 06:41] LABS: ANION GAP 4 (5-19)
[2018-03-24] MEDS: LACTOBACILLUS ACIDOPHILUS 250 MG TAB PO SCH ×2 (09:28→21:33)
[2018-03-24] MEDS: POTASSIUM CHLORIDE 20 MEQ/15 ML UDCUP PO SCH (09:28)
[2018-03-24] MEDS: HEPARIN SOD (PORCINE) 5,000 UNIT/ML 1 ML SYRINGE SUBCUT SCH ×2 (09:28→21:33)
[2018-03-24] MEDS: NYSTATIN TOPICAL POWDER 15 GM TP SCH ×3 (09:29→17:14)
[2018-03-24 14:33] LABS: VANCOMYCIN,TROUGH 16.2 ug/mL (5.0-20.0)
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
[2018-03-24] MEDS: MELATONIN 3 MG TABLET PO SCH (21:33)
[2018-03-24] MEDS: ATORVASTATIN CALCIUM 40 MG TABLET PO SCH (21:33)
[2018-03-25] MEDS: VANCOMYCIN HCL 750 MG in DEXTROSE 5%-WATER 250 ML IV SCH ×2 (01:55→16:01)
[2018-03-25] MEDS: NORMAL SALINE 1000 ML 1,000 ML IV PRN (01:56)
[2018-03-25] MEDS: LANSOPRAZOLE 30 MG TAB.RAP.DR PO SCH (06:07)
[2018-03-25] MEDS: HEPARIN SOD (PORCINE) 5,000 UNIT/ML 1 ML SYRINGE SUBCUT SCH ×2 (09:29→22:09)
[2018-03-25] MEDS: POTASSIUM CHLORIDE 20 MEQ/15 ML UDCUP PO SCH (09:29)
[2018-03-25] MEDS: LACTOBACILLUS ACIDOPHILUS 250 MG TAB PO SCH ×2 (09:29→22:09)
[2018-03-25] MEDS: NYSTATIN TOPICAL POWDER 15 GM TP SCH ×3 (09:38→18:10)
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
[2018-03-25] MEDS: MELATONIN 3 MG TABLET PO SCH (22:09)
[2018-03-25] MEDS: ATORVASTATIN CALCIUM 40 MG TABLET PO SCH (22:09)
[2018-03-26] MEDS: VANCOMYCIN HCL 750 MG in DEXTROSE 5%-WATER 250 ML IV SCH ×2 (03:15→14:01)
[2018-03-26] MEDS: LANSOPRAZOLE 30 MG TAB.RAP.DR PO SCH (06:50)
[2018-03-26] MEDS: NYSTATIN TOPICAL POWDER 15 GM TP SCH ×3 (11:27→18:53)
[2018-03-26] MEDS: LACTOBACILLUS ACIDOPHILUS 250 MG TAB PO SCH ×2 (11:27→22:26)
[2018-03-26] MEDS: HEPARIN SOD (PORCINE) 5,000 UNIT/ML 1 ML SYRINGE SUBCUT SCH ×2 (11:27→22:25)
[2018-03-26 13:49] LABS: ANION GAP 6 (5-19); BLOOD UREA NITROGEN 19 mg/dL (7-20); CALCIUM 8.3 mg/dL (8.4-10.2); CARBON DIOXIDE 30 mmol/L (22-30); CHLORIDE 101 mmol/L (98-107); GLUCOSE 100 mg/dL (75-110); POTASSIUM 4.6 mmol/L (3.6-5.0); SODIUM 136.5 mmol/L (137-145)
[2018-03-26] MEDS: POTASSIUM CHLORIDE 20 MEQ/15 ML UDCUP PO SCH (13:57)
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
[2018-03-26] MEDS: SULFAMETHOXAZOLE/TRIMETHOPRIM 800-160 MG TABLET PO SCH (18:53)
[2018-03-26] MEDS: ATORVASTATIN CALCIUM 40 MG TABLET PO SCH (22:25)
[2018-03-26] MEDS: MELATONIN 3 MG TABLET PO SCH (22:25)
[2018-03-27] MEDS: LANSOPRAZOLE 30 MG TAB.RAP.DR PO SCH (05:15)
[2018-03-27] MEDS: LACTOBACILLUS ACIDOPHILUS 250 MG TAB PO SCH ×2 (11:19→21:56)
[2018-03-27] MEDS: SULFAMETHOXAZOLE/TRIMETHOPRIM 800-160 MG TABLET PO SCH ×2 (11:19→19:44)
[2018-03-27] MEDS: HEPARIN SOD (PORCINE) 5,000 UNIT/ML 1 ML SYRINGE SUBCUT SCH ×2 (11:19→21:55)
[2018-03-27] MEDS: NYSTATIN TOPICAL POWDER 15 GM TP SCH ×3 (11:20→19:45)
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
[2018-03-27] MEDS: ATORVASTATIN CALCIUM 40 MG TABLET PO SCH (21:56)
[2018-03-27] MEDS: ACETAMINOPHEN 325 MG TABLET PO PRN (21:56)
[2018-03-27] MEDS: MELATONIN 3 MG TABLET PO SCH (21:58)
[2018-03-28] MEDS: LANSOPRAZOLE 30 MG TAB.RAP.DR PO SCH (05:53)
[2018-03-28] MEDS: HEPARIN SOD (PORCINE) 5,000 UNIT/ML 1 ML SYRINGE SUBCUT SCH ×2 (09:35→21:34)
[2018-03-28] MEDS: LACTOBACILLUS ACIDOPHILUS 250 MG TAB PO SCH ×2 (09:36→21:34)
[2018-03-28] MEDS: SULFAMETHOXAZOLE/TRIMETHOPRIM 800-160 MG TABLET PO SCH ×2 (09:36→18:51)
[2018-03-28] MEDS: NYSTATIN TOPICAL POWDER 15 GM TP SCH ×2 (09:36→15:44)
--- NOTE | 2018-03-28 19:13 | PDOC PROGRESS REPORT ---
Subjective Progress Note for:: 03/28/18 Subjective:: No adverse events overnight. No new complaints. Vital signs been stable. Eating and drinking without difficulty. He is currently awaiting placement. Reason For Visit: SEPSIS Physical Exam Vital Signs: Temp Pulse Resp BP Pulse Ox 97.9 F 84 20 114/45 L 92 03/28/18 16:17 03/28/18 16:17 03/28/18 16:17 03/28/18 16:17 03/28/18 16:17 Intake & Output 03/27/18 03/28/18 03/29/18 06:59 06:59 06:59 Intake Total 583 222 355 Output Total 1320 800 500 Balance -737 -578 -145 Weight 102.2 kg 99.4 kg General appearance: PRESENT: no acute distress, cooperative, disheveled, obese Results Laboratory Results: 03/22/18 12:55 03/26/18 13:03 Impressions: Abdomen/Pelvis CT 03/03/18 00:00 IMPRESSION: NO SIGNIFICANT OR ACUTE PROCESS IN THE ABDOMEN OR PELVIS. Head CTA 03/03/18 09:57 IMPRESSION: NO CTA EVIDENCE OF STENOSIS OR ANEURYSM OF THE [place] OF [place]. Neck CTA 03/03/18 09:57 IMPRESSION: NORMAL CTA OF THE EXTRA-CRANIAL CAROTID AND VERTEBRAL ARTERIES. Chest X-Ray 03/03/18 09:58 IMPRESSION: BORDERLINE CARDIOMEGALY. HAZY PULMONARY OPACITIES COULD REPRESENT EARLY PNEUMONIA OR DEVELOPING PULMONARY EDEMA. Head CT 03/06/18 00:00 IMPRESSION: Involutional changes of aging with microvascular ischemia. No acute imaging findings in the brain. EVIDENCE OF ACUTE STROKE: NO. Head MRI 03/06/18 00:00 IMPRESSION: 1. No acute intracranial abnormality. Suspect chronic changes including very mild small vessel disease and old right basal ganglia lacunar infarct. No suggestion of recent CVA. EVIDENCE OF ACUTE STROKE: NO. Cystogram 03/07/18 00:00 IMPRESSION: Left-sided vesicoureteral reflux. Bladder configuration suggests chronic urinary outflow obstruction versus neurogenic bladder. Yepez catheter balloon and tip are in good positioning in the urinary bladder Renal Ultrasound 03/07/18 00:00 IMPRESSION: 1. NORMAL RENAL ULTRASOUND. 2. YEPEZ CATHETER DESCRIBED. THE TIP OF THE CATHETER INDENTS THE BLADDER WALL AND ON SOME IMAGES THERE IS SUGGESTION THAT THE TIP MAY PENETRATE THE BLADDER WALL. THE CATHETER MAY NEED TO BE REPOSITIONED OR REPLACED. IF THERE IS SUSPICION THAT THE TIP HAS PENETRATED THE BLADDER WALL, THEN MAY CONSIDER A CYSTOGRAM TO DETERMINE IF THERE IS ANY INDICATION OF LEAKAGE FROM THE BLADDER. Assessment & Plan - Diagnosis (1) Sepsis Qualifiers: Sepsis type: sepsis due to unspecified organism Qualified Code(s): A41.9 - Sepsis, unspecified organism Is this a current diagnosis for this admission?: Yes Plan: Resolved (2) UTI (urinary tract infection) Qualifiers: Urinary tract infection type: catheter-associated UTI Indwelling urinary catheter type: indwelling urethral catheter Encounter type: initial encounter Qualified Code(s): T83.511A - Infection and inflammatory reaction due to indwelling urethral catheter, initial encounter; N39.0 - Urinary tract infection , site not specified; N39.0 - Urinary tract infection, site not specified Is this a current diagnosis for this admission?: Yes Plan: Catheter associated UTI has been treated with antibiotics. He is currently awaiting placement in a alf facility.
[2018-03-28] MEDS: MELATONIN 3 MG TABLET PO SCH (21:34)
[2018-03-28] MEDS: ATORVASTATIN CALCIUM 40 MG TABLET PO SCH (21:34)
[2018-03-28] MEDS: ACETAMINOPHEN 325 MG TABLET PO PRN (21:35)
[2018-03-29] MEDS: NORMAL SALINE 1000 ML 1,000 ML IV PRN ×2 (02:43→21:43)
[2018-03-29] MEDS: LANSOPRAZOLE 30 MG TAB.RAP.DR PO SCH (05:21)
[2018-03-29] MEDS: SULFAMETHOXAZOLE/TRIMETHOPRIM 800-160 MG TABLET PO SCH ×2 (11:45→18:08)
[2018-03-29] MEDS: LACTOBACILLUS ACIDOPHILUS 250 MG TAB PO SCH ×2 (11:45→21:42)
[2018-03-29] MEDS: HEPARIN SOD (PORCINE) 5,000 UNIT/ML 1 ML SYRINGE SUBCUT SCH ×2 (11:46→21:42)
--- NOTE | 2018-03-29 12:57 | PDOC PROGRESS REPORT ---
Subjective Progress Note for:: 03/29/18 Subjective:: No adverse events overnight. No new complaints. Vital signs been stable. Eating and drinking without difficulty. He is currently awaiting placement. Reason For Visit: SEPSIS Physical Exam Vital Signs: Temp Pulse Resp BP Pulse Ox 98.3 F 61 18 121/58 L 96 03/29/18 12:00 03/29/18 12:00 03/29/18 12:00 03/29/18 12:00 03/29/18 12:00 Intake & Output 03/28/18 03/29/18 03/30/18 06:59 06:59 06:59 Intake Total 222 675 Output Total 800 1500 Balance -578 -825 Weight 99.4 kg 100.5 kg Results Laboratory Results: 03/22/18 12:55 03/26/18 13:03 Impressions: Abdomen/Pelvis CT 03/03/18 00:00 IMPRESSION: NO SIGNIFICANT OR ACUTE PROCESS IN THE ABDOMEN OR PELVIS. Head CTA 03/03/18 09:57 IMPRESSION: NO CTA EVIDENCE OF STENOSIS OR ANEURYSM OF THE [place]. Neck CTA 03/03/18 09:57 IMPRESSION: NORMAL CTA OF THE EXTRA-CRANIAL CAROTID AND VERTEBRAL ARTERIES. Chest X-Ray 03/03/18 09:58 IMPRESSION: BORDERLINE CARDIOMEGALY. HAZY PULMONARY OPACITIES COULD REPRESENT EARLY PNEUMONIA OR DEVELOPING PULMONARY EDEMA. Head CT 03/06/18 00:00 IMPRESSION: Involutional changes of aging with microvascular ischemia. No acute imaging findings in the brain. EVIDENCE OF ACUTE STROKE: NO. Head MRI 03/06/18 00:00 IMPRESSION: 1. No acute intracranial abnormality. Suspect chronic changes including very mild small vessel disease and old right basal ganglia lacunar infarct. No suggestion of recent CVA. EVIDENCE OF ACUTE STROKE: NO. Cystogram 03/07/18 00:00 IMPRESSION: Left-sided vesicoureteral reflux. Bladder configuration suggests chronic urinary outflow obstruction versus neurogenic bladder. Yepez catheter balloon and tip are in good positioning in the urinary bladder Renal Ultrasound 03/07/18 00:00 IMPRESSION: 1. NORMAL RENAL ULTRASOUND. 2. YEPEZ CATHETER DESCRIBED. THE TIP OF THE CATHETER INDENTS THE BLADDER WALL AND ON SOME IMAGES THERE IS SUGGESTION THAT THE TIP MAY PENETRATE THE BLADDER WALL. THE CATHETER MAY NEED TO BE REPOSITIONED OR REPLACED. IF THERE IS SUSPICION THAT THE TIP HAS PENETRATED THE BLADDER WALL, THEN MAY CONSIDER A CYSTOGRAM TO DETERMINE IF THERE IS ANY INDICATION OF LEAKAGE FROM THE BLADDER. Assessment & Plan - Diagnosis (1) Sepsis Qualifiers: Sepsis type: sepsis due to unspecified organism Qualified Code(s): A41.9 - Sepsis, unspecified organism Is this a current diagnosis for this admission?: Yes Plan: Resolved (2) UTI (urinary tract infection) Qualifiers: Urinary tract infection type: catheter-associated UTI Indwelling urinary catheter type: indwelling urethral catheter Encounter type: initial encounter Qualified Code(s): T83.511A - Infection and inflammatory reaction due to indwelling urethral catheter, initial encounter; N39.0 - Urinary tract infection , site not specified; N39.0 - Urinary tract infection, site not specified Is this a current diagnosis for this admission?: Yes Plan: Catheter associated UTI has been treated with antibiotics. He is currently awaiting placement in a long term facility.
[2018-03-29] MEDS: ATORVASTATIN CALCIUM 40 MG TABLET PO SCH (21:42)
[2018-03-29] MEDS: ACETAMINOPHEN 325 MG TABLET PO PRN (21:42)
[2018-03-29] MEDS: MELATONIN 3 MG TABLET PO SCH (21:44)
[2018-03-30] MEDS: LANSOPRAZOLE 30 MG TAB.RAP.DR PO SCH (05:58)
[2018-03-30] MEDS: SULFAMETHOXAZOLE/TRIMETHOPRIM 800-160 MG TABLET PO SCH ×2 (11:03→17:31)
[2018-03-30] MEDS: HEPARIN SOD (PORCINE) 5,000 UNIT/ML 1 ML SYRINGE SUBCUT SCH ×2 (11:04→21:34)
[2018-03-30] MEDS: LACTOBACILLUS ACIDOPHILUS 250 MG TAB PO SCH ×2 (11:05→21:25)
[2018-03-30] MEDS: NORMAL SALINE 1000 ML 1,000 ML IV PRN (17:31)
--- NOTE | 2018-03-30 21:20 | PDOC PROGRESS REPORT ---
Subjective Progress Note for:: 03/30/18 Subjective:: Patient reports he is reluctant to go to SNF. He denies being seen by physical therapy for rehab. Reports he can previously ambulate with a walker prior to this acute illness with prolonged hospitalization. Reason For Visit: SEPSIS Physical Exam Vital Signs: Temp Pulse Resp BP Pulse Ox 98.5 F 69 15 135/48 H 69 L 03/30/18 16:00 03/30/18 16:00 03/30/18 16:00 03/30/18 15:03 03/30/18 16:00 Intake & Output 03/29/18 03/30/18 03/31/18 06:59 06:59 06:59 Intake Total 675 2400 1582 Output Total 1500 2000 900 Balance -825 400 682 Weight 100.5 kg 101.1 kg General appearance: PRESENT: no acute distress, obese Eye exam: PRESENT: conjunctiva pink. ABSENT: scleral icterus Neck exam: ABSENT: JVD, tracheal deviation Respiratory exam: PRESENT: clear to auscultation arash, unlabored Cardiovascular exam: PRESENT: RRR Vascular exam: PRESENT: normal capillary refill GI/Abdominal exam: PRESENT: normal bowel sounds, soft. ABSENT: distended, firm , guarding, tenderness Rectal exam: PRESENT: deferred Gentrourinary exam: PRESENT: indwelling catheter Extremities exam: PRESENT: pedal edema, +1 edema Musculoskeletal exam: PRESENT: normal inspection Neurological exam: PRESENT: alert, awake, oriented to person, oriented to place , oriented to time, oriented to situation. ABSENT: motor sensory deficit Skin exam: PRESENT: dry, intact, warm. ABSENT: cyanosis, rash Results Laboratory Results: 03/22/18 12:55 03/26/18 13:03 Impressions: Abdomen/Pelvis CT 03/03/18 00:00 IMPRESSION: NO SIGNIFICANT OR ACUTE PROCESS IN THE ABDOMEN OR PELVIS. Head CTA 03/03/18 09:57 IMPRESSION: NO CTA EVIDENCE OF STENOSIS OR ANEURYSM OF THE [place] OF [place]. Neck CTA 03/03/18 09:57 IMPRESSION: NORMAL CTA OF THE EXTRA-CRANIAL CAROTID AND VERTEBRAL ARTERIES. Chest X-Ray 03/03/18 09:58 IMPRESSION: BORDERLINE CARDIOMEGALY. HAZY PULMONARY OPACITIES COULD REPRESENT EARLY PNEUMONIA OR DEVELOPING PULMONARY EDEMA. Head CT 03/06/18 00:00 IMPRESSION: Involutional changes of aging with microvascular ischemia. No acute imaging findings in the brain. EVIDENCE OF ACUTE STROKE: NO. Head MRI 03/06/18 00:00 IMPRESSION: 1. No acute intracranial abnormality. Suspect chronic changes including very mild small vessel disease and old right basal ganglia lacunar infarct. No suggestion of recent CVA. EVIDENCE OF ACUTE STROKE: NO. Cystogram 03/07/18 00:00 IMPRESSION: Left-sided vesicoureteral reflux. Bladder configuration suggests chronic urinary outflow obstruction versus neurogenic bladder. Yepez catheter balloon and tip are in good positioning in the urinary bladder Renal Ultrasound 03/07/18 00:00 IMPRESSION: 1. NORMAL RENAL ULTRASOUND. 2. YEPEZ CATHETER DESCRIBED. THE TIP OF THE CATHETER INDENTS THE BLADDER WALL AND ON SOME IMAGES THERE IS SUGGESTION THAT THE TIP MAY PENETRATE THE BLADDER WALL. THE CATHETER MAY NEED TO BE REPOSITIONED OR REPLACED. IF THERE IS SUSPICION THAT THE TIP HAS PENETRATED THE BLADDER WALL, THEN MAY CONSIDER A CYSTOGRAM TO DETERMINE IF THERE IS ANY INDICATION OF LEAKAGE FROM THE BLADDER. Assessment & Plan - Diagnosis (1) Chronic indwelling Yepez catheter Is this a current diagnosis for this admission?: Yes Plan: Continue (2) Bursitis of left shoulder Is this a current diagnosis for this admission?: Yes Plan: Physical therapy (3) UTI (urinary tract infection) Qualifiers: Urinary tract infection type: catheter-associated UTI Indwelling urinary catheter type: indwelling urethral catheter Encounter type: initial encounter Qualified Code(s): T83.511A - Infection and inflammatory reaction due to indwelling urethral catheter, initial encounter; N39.0 - Urinary tract infection , site not specified; N39.0 - Urinary tract infection, site not specified Is this a current diagnosis for this admission?: Yes Plan: Complete antibiotic (4) Constipation Qualifiers: Constipation type: unspecified constipation type Qualified Code(s): K59.00 - Constipation, unspecified Is this a current diagnosis for this admission?: Yes Plan: Patient denies discomfort associated. Patient prefers to wait on any intervention. (5) DVT prophylaxis Is this a current diagnosis for this admission?: Yes Plan: Continue pharmacologic prophylaxis (6) Weakness Is this a current diagnosis for this admission?: Yes Plan: Physical therapy for the remainder of hospitalization Transfer to SNF for physical therapy rehab with the goal to return home ambulatory with walker - Time Time Spent with patient: 35 or more minutes Anticipated discharge: SNF, Acute Rehab Within: within 48 hours
[2018-03-30] MEDS: MELATONIN 3 MG TABLET PO SCH (21:24)
[2018-03-30] MEDS: ACETAMINOPHEN 325 MG TABLET PO PRN (21:24)
[2018-03-30] MEDS: ATORVASTATIN CALCIUM 40 MG TABLET PO SCH (21:25)
[2018-03-31] MEDS: LANSOPRAZOLE 30 MG TAB.RAP.DR PO SCH (06:41)
[2018-03-31 07:56] LABS: ANION GAP 5 (5-19); BLOOD UREA NITROGEN 22 mg/dL (7-20); CARBON DIOXIDE 29 mmol/L (22-30); CHLORIDE 103 mmol/L (98-107); GLUCOSE 85 mg/dL (75-110); POTASSIUM 4.4 mmol/L (3.6-5.0); SODIUM 136.7 mmol/L (137-145)
[2018-03-31] MEDS: SULFAMETHOXAZOLE/TRIMETHOPRIM 800-160 MG TABLET PO SCH ×2 (10:18→18:14)
[2018-03-31] MEDS: LACTOBACILLUS ACIDOPHILUS 250 MG TAB PO SCH ×2 (10:18→21:18)
[2018-03-31] MEDS: HEPARIN SOD (PORCINE) 5,000 UNIT/ML 1 ML SYRINGE SUBCUT SCH ×2 (10:19→21:19)
[2018-03-31] MEDS: ACETAMINOPHEN 325 MG TABLET PO PRN ×2 (10:37→21:19)
[2018-03-31] MEDS: NORMAL SALINE 1000 ML 1,000 ML IV PRN (14:12)
[2018-03-31] MEDS: ATORVASTATIN CALCIUM 40 MG TABLET PO SCH (21:19)
[2018-03-31] MEDS: MELATONIN 3 MG TABLET PO SCH (21:19)
--- NOTE | 2018-04-01 00:31 | PDOC PROGRESS REPORT ---
Subjective Progress Note for:: 03/31/18 Subjective:: Patient reports he is reluctant to go to SNF. He reports he was seen by physical therapy and was able to get up and walk short distance with walker. Reports he could previously ambulate much further with a walker prior to this acute illness with prolonged hospitalization. Reason For Visit: prolonged hospitalization with debilitation Physical Exam Vital Signs: Temp Pulse Resp BP Pulse Ox 97.1 F 70 18 133/46 H 95 03/31/18 19:31 03/31/18 19:31 03/31/18 19:31 03/31/18 19:31 03/31/18 19:31 Intake & Output 03/30/18 03/31/18 04/01/18 06:59 06:59 06:59 Intake Total 2400 1822 1000 Output Total 2000 1880 Balance 400 -58 1000 Weight 101.1 kg 99.9 kg Additional comments: General appearance: PRESENT: no acute distress, obese Eye exam: PRESENT: conjunctiva pink. ABSENT: scleral icterus Neck exam: ABSENT: JVD, tracheal deviation Respiratory exam: PRESENT: clear to auscultation arash, unlabored Cardiovascular exam: PRESENT: RRR Vascular exam: PRESENT: normal capillary refill GI/Abdominal exam: PRESENT: normal bowel sounds, soft. ABSENT: distended, firm , guarding, tenderness Rectal exam: PRESENT: deferred Gentrourinary exam: PRESENT: indwelling catheter Extremities exam: PRESENT: pedal edema, +1 edema Musculoskeletal exam: PRESENT: normal inspection Neurological exam: PRESENT: alert, awake, oriented to person, oriented to place , oriented to time, oriented to situation. ABSENT: motor sensory deficit Skin exam: PRESENT: dry, intact, warm. ABSENT: cyanosis, rash Results Laboratory Results: 03/22/18 12:55 03/31/18 07:16 03/31/18 07:16 Sodium 136.7 L Potassium 4.4 Chloride 103 Carbon Dioxide 29 Anion Gap 5 BUN 22 H Creatinine 1.00 Est GFR ( Amer) > 60 Est GFR (Non-Af Amer) > 60 Glucose 85 Calcium 9.0 Impressions: Abdomen/Pelvis CT 03/03/18 00:00 IMPRESSION: NO SIGNIFICANT OR ACUTE PROCESS IN THE ABDOMEN OR PELVIS. Head CTA 03/03/18 09:57 IMPRESSION: NO CTA EVIDENCE OF STENOSIS OR ANEURYSM OF THE [place]. Neck CTA 03/03/18 09:57 IMPRESSION: NORMAL CTA OF THE EXTRA-CRANIAL CAROTID AND VERTEBRAL ARTERIES. Chest X-Ray 03/03/18 09:58 IMPRESSION: BORDERLINE CARDIOMEGALY. HAZY PULMONARY OPACITIES COULD REPRESENT EARLY PNEUMONIA OR DEVELOPING PULMONARY EDEMA. Head CT 03/06/18 00:00 IMPRESSION: Involutional changes of aging with microvascular ischemia. No acute imaging findings in the brain. EVIDENCE OF ACUTE STROKE: NO. Head MRI 03/06/18 00:00 IMPRESSION: 1. No acute intracranial abnormality. Suspect chronic changes including very mild small vessel disease and old right basal ganglia lacunar infarct. No suggestion of recent CVA. EVIDENCE OF ACUTE STROKE: NO. Cystogram 03/07/18 00:00 IMPRESSION: Left-sided vesicoureteral reflux. Bladder configuration suggests chronic urinary outflow obstruction versus neurogenic bladder. Yepez catheter balloon and tip are in good positioning in the urinary bladder Renal Ultrasound 03/07/18 00:00 IMPRESSION: 1. NORMAL RENAL ULTRASOUND. 2. YEPEZ CATHETER DESCRIBED. THE TIP OF THE CATHETER INDENTS THE BLADDER WALL AND ON SOME IMAGES THERE IS SUGGESTION THAT THE TIP MAY PENETRATE THE BLADDER WALL. THE CATHETER MAY NEED TO BE REPOSITIONED OR REPLACED. IF THERE IS SUSPICION THAT THE TIP HAS PENETRATED THE BLADDER WALL, THEN MAY CONSIDER A CYSTOGRAM TO DETERMINE IF THERE IS ANY INDICATION OF LEAKAGE FROM THE BLADDER. Assessment & Plan - Diagnosis (1) UTI (urinary tract infection) Qualifiers: Urinary tract infection type: catheter-associated UTI Indwelling urinary catheter type: indwelling urethral catheter Encounter type: subsequent encounter Qualified Code(s): T83.511D - Infection and inflammatory reaction due to indwelling urethral catheter, subsequent encounter; N39.0 - Urinary tract infection, site not specified; N39.0 - Urinary tract infection, site not specified Is this a current diagnosis for this admission?: Yes Plan: Resolved. Completed antibiotic (2) Chronic indwelling Yepez catheter Is this a current diagnosis for this admission?: Yes Plan: Continue Yepez Change out at least q month (3) Bursitis of left shoulder Is this a current diagnosis for this admission?: Yes Plan: Physical therapy (4) Weakness Is this a current diagnosis for this admission?: Yes Plan: Physical therapy for the remainder of hospitalization Transfer to SNF for physical therapy rehab with the goal to return home ambulatory with walker (5) Constipation Qualifiers: Constipation type: unspecified constipation type Qualified Code(s): K59.00 - Constipation, unspecified Is this a current diagnosis for this admission?: Yes Plan: Patient denies discomfort associated. Patient prefers to wait on any intervention. - Time Time Spent with patient: 15-24 minutes
[2018-04-01] MEDS: LANSOPRAZOLE 30 MG TAB.RAP.DR PO SCH (06:15)
[2018-04-01] MEDS: NORMAL SALINE 1000 ML 1,000 ML IV PRN (06:15)
[2018-04-01] MEDS: ACETAMINOPHEN 325 MG TABLET PO PRN ×3 (06:37→21:14)
[2018-04-01] MEDS: SULFAMETHOXAZOLE/TRIMETHOPRIM 800-160 MG TABLET PO SCH ×2 (09:52→17:21)
[2018-04-01] MEDS: LACTOBACILLUS ACIDOPHILUS 250 MG TAB PO SCH ×2 (09:52→21:09)
[2018-04-01] MEDS: HEPARIN SOD (PORCINE) 5,000 UNIT/ML 1 ML SYRINGE SUBCUT SCH ×2 (09:52→21:08)
[2018-04-01] MEDS: MELATONIN 3 MG TABLET PO SCH (21:09)
[2018-04-01] MEDS: ATORVASTATIN CALCIUM 40 MG TABLET PO SCH (21:09)
--- NOTE | 2018-04-01 23:59 | PDOC PROGRESS REPORT ---
Subjective Progress Note for:: 04/01/18 Subjective:: Patient reports he is reluctant to go to SNF, but is willing. He reports he was not seen by physical therapy today. Yesterday he said he was able to get up and walk short distance with walker during physical therapy. However, I ran into the physical therapist who saw him yesterday. She reports that is not true. She reports he could not even sit on the edge of the bed independently. She called his SNF to find out his previous level of activity, and they reported that he is nonambulatory and they use a [employer] lift. Though, his reports that he could previously ambulate much further with a walker prior to this acute illness with prolonged hospitalization also are not true. Reason For Visit: Generalized weakness, acute on chronic, related to his acute comorbidities during this admission with extended hospitalization. Physical Exam Vital Signs: Temp Pulse Resp BP Pulse Ox 97.6 F 69 18 139/49 H 93 04/01/18 19:54 04/01/18 19:54 04/01/18 16:23 04/01/18 19:54 04/01/18 19:54 Intake & Output 03/31/18 04/01/18 04/02/18 06:59 06:59 06:59 Intake Total 1822 2023 300 Output Total 1880 1220 250 Balance -58 803 50 Weight 99.9 kg 99.5 kg Additional comments: General appearance: PRESENT: no acute distress, obese Eye exam: PRESENT: conjunctiva pink. ABSENT: scleral icterus Neck exam: ABSENT: JVD, tracheal deviation Respiratory exam: PRESENT: clear to auscultation arash, unlabored Cardiovascular exam: PRESENT: RRR Vascular exam: PRESENT: normal capillary refill GI/Abdominal exam: PRESENT: normal bowel sounds, soft. ABSENT: distended, firm , guarding, tenderness Rectal exam: PRESENT: deferred Gentrourinary exam: PRESENT: indwelling catheter Extremities exam: PRESENT: pedal edema, +1 edema Musculoskeletal exam: PRESENT: normal inspection Neurological exam: PRESENT: alert, awake, oriented to person, oriented to place , oriented to time, oriented to situation. Significant generalized weakness, no focal deficits. Skin exam: PRESENT: dry, intact, warm. ABSENT: cyanosis, rash Results Laboratory Results: 03/22/18 12:55 03/31/18 07:16 Impressions: Abdomen/Pelvis CT 03/03/18 00:00 IMPRESSION: NO SIGNIFICANT OR ACUTE PROCESS IN THE ABDOMEN OR PELVIS. Head CTA 03/03/18 09:57 IMPRESSION: NO CTA EVIDENCE OF STENOSIS OR ANEURYSM OF THE [place] OF [place]. Neck CTA 03/03/18 09:57 IMPRESSION: NORMAL CTA OF THE EXTRA-CRANIAL CAROTID AND VERTEBRAL ARTERIES. Chest X-Ray 03/03/18 09:58 IMPRESSION: BORDERLINE CARDIOMEGALY. HAZY PULMONARY OPACITIES COULD REPRESENT EARLY PNEUMONIA OR DEVELOPING PULMONARY EDEMA. Head CT 03/06/18 00:00 IMPRESSION: Involutional changes of aging with microvascular ischemia. No acute imaging findings in the brain. EVIDENCE OF ACUTE STROKE: NO. Head MRI 03/06/18 00:00 IMPRESSION: 1. No acute intracranial abnormality. Suspect chronic changes including very mild small vessel disease and old right basal ganglia lacunar infarct. No suggestion of recent CVA. EVIDENCE OF ACUTE STROKE: NO. Cystogram 03/07/18 00:00 IMPRESSION: Left-sided vesicoureteral reflux. Bladder configuration suggests chronic urinary outflow obstruction versus neurogenic bladder. Yepez catheter balloon and tip are in good positioning in the urinary bladder Renal Ultrasound 03/07/18 00:00 IMPRESSION: 1. NORMAL RENAL ULTRASOUND. 2. YEPEZ CATHETER DESCRIBED. THE TIP OF THE CATHETER INDENTS THE BLADDER WALL AND ON SOME IMAGES THERE IS SUGGESTION THAT THE TIP MAY PENETRATE THE BLADDER WALL. THE CATHETER MAY NEED TO BE REPOSITIONED OR REPLACED. IF THERE IS SUSPICION THAT THE TIP HAS PENETRATED THE BLADDER WALL, THEN MAY CONSIDER A CYSTOGRAM TO DETERMINE IF THERE IS ANY INDICATION OF LEAKAGE FROM THE BLADDER. Assessment & Plan - Diagnosis (1) UTI (urinary tract infection) Qualifiers: Urinary tract infection type: catheter-associated UTI Indwelling urinary catheter type: indwelling urethral catheter Encounter type: subsequent encounter Qualified Code(s): T83.511D - Infection and inflammatory reaction due to indwelling urethral catheter, subsequent encounter; N39.0 - Urinary tract infection, site not specified; N39.0 - Urinary tract infection, site not specified Is this a current diagnosis for this admission?: Yes Plan: Resolved. Completed antibiotic (2) Chronic indwelling Yepez catheter Is this a current diagnosis for this admission?: Yes Plan: Continue Yepez Change out at least q month (3) Weakness Is this a current diagnosis for this admission?: Yes Plan: Physical therapy for the remainder of hospitalization Transfer to SNF for physical therapy rehab with the goal to return home ambulatory with walker, though not likely given the prolonged period of time that he has been essentially bedbound. (4) Bursitis of left shoulder Is this a current diagnosis for this admission?: Yes Plan: Physical therapy (5) Constipation Qualifiers: Constipation type: unspecified constipation type Qualified Code(s): K59.00 - Constipation, unspecified Is this a current diagnosis for this admission?: Yes Plan: Resolved. Had bowel movements during the previous 24 hours. - Time Time Spent with patient: 25-34 minutes
[2018-04-02] MEDS: LANSOPRAZOLE 30 MG TAB.RAP.DR PO SCH (05:37)
[2018-04-02] MEDS: SULFAMETHOXAZOLE/TRIMETHOPRIM 800-160 MG TABLET PO SCH (10:59)
[2018-04-02] MEDS: LACTOBACILLUS ACIDOPHILUS 250 MG TAB PO SCH (10:59)
[2018-04-02] MEDS: HEPARIN SOD (PORCINE) 5,000 UNIT/ML 1 ML SYRINGE SUBCUT SCH (10:59)
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
[2018-04-02 14:13] VITALS: BP 131/40
== END 2018-04-02 14:45 | DRG 698 ==
LOC: ER 09:44 → EH 13:04 → UNDOADMIN 13:04 → ICU 16:44 → 4N 03-14 18:20 → 4S 03-22 16:02 → 5 04-01 16:03
PROVIDERS: ADMIT Internal Medicine; ATTEND Internal Medicine
PROC: 30233N1 Transfusion of Nonautologous Red Blood Cells into Peripheral Vein, Percutaneous Approach (ICD-10-PCS; principal; 2018-03-17)
DX: T83.511A Infection and inflammatory reaction due to indwelling urethral catheter, initial encounter (principal); A41.9 Sepsis, unspecified organism; R65.21 Severe sepsis with septic shock; G93.41 Metabolic encephalopathy; N17.9 Acute kidney failure, unspecified; N12 Tubulo-interstitial nephritis, not specified as acute or chronic; A04.72 Enterocolitis due to Clostridium difficile, not specified as recurrent; R47.01 Aphasia; L89.152 Pressure ulcer of sacral region, stage 2; Y84.6 Urinary catheterization as the cause of abnormal reaction of the patient, or of later complication, without mention of misadventure at the time of the procedure; B96.5 Pseudomonas (aeruginosa) (mallei) (pseudomallei) as the cause of diseases classified elsewhere; B95.62 Methicillin resistant Staphylococcus aureus infection as the cause of diseases classified elsewhere; B96.4 Proteus (mirabilis) (morganii) as the cause of diseases classified elsewhere; B96.1 Klebsiella pneumoniae [K. pneumoniae] as the cause of diseases classified elsewhere; I48.2 Chronic atrial fibrillation; E78.5 Hyperlipidemia, unspecified; N13.9 Obstructive and reflux uropathy, unspecified; N40.1 Benign prostatic hyperplasia with lower urinary tract symptoms; I12.9 Hypertensive chronic kidney disease with stage 1 through stage 4 chronic kidney disease, or unspecified chronic kidney disease; N18.9 Chronic kidney disease, unspecified; R31.9 Hematuria, unspecified; Z16.23 Resistance to quinolones and fluoroquinolones; Z16.29 Resistance to other single specified antibiotic; Z16.39 Resistance to other specified antimicrobial drug; R00.1 Bradycardia, unspecified; G47.33 Obstructive sleep apnea (adult) (pediatric); Z66 Do not resuscitate; D63.1 Anemia in chronic kidney disease; E87.6 Hypokalemia; Z75.1 Person awaiting admission to adequate facility elsewhere; M19.90 Unspecified osteoarthritis, unspecified site; M75.52 Bursitis of left shoulder; K59.00 Constipation, unspecified; Z79.899 Other long term (current) drug therapy; Z86.73 Personal history of transient ischemic attack (TIA), and cerebral infarction without residual deficits; Z90.49 Acquired absence of other specified parts of digestive tract; Z74.01 Bed confinement status; Z87.891 Personal history of nicotine dependence
CPT/HCPCS: 36415; 36430; 51600; 70450; 70496; 70498; 70551; 71045; 74176; 74430; 76770; 80048; 80053; 80202; 80307; 81001; 82140; 82533; 82803; 82962; 83605; 83735; 83880; 84100; 84439; 84443; 84481; 84484; 85025; 85027; 85610; 85730; 86850; 86900; 86901; 86920; 87040; 87070; 87077; 87086; 87088; 87186; 87205; 87493; 93005; 93010; 94640; 96361; 96365; 96366; 96368; 99291; C1758; G8978-GP; G8979-GP; G8980-GP; G8996-GN; G8997-GN; G8998-GN; J1644; J1650; J2543; J3370; J3475; J3480; J3490; J7030; J7040; J7060; J7620; P9016; S0028